=== PATIENT | female | born 1955 | race Caucasian/White ===

== ENCOUNTER → 2019-03-27 14:13 | Outpatient (CLI) | payer MEDICARE, SELFPAY ==
--- NOTE | ~2019-03-27 | XR_ITS ---
EXAMINATION: XR foot LT min 3V DATE: 03/27/2019 14:25 INDICATION: Left foot pain. TECHNIQUE: 4 views of left foot were obtained. COMPARISON: None. FINDINGS: There is mild hallux valgus. No fracture. There is mild osteoarthritis of first metatarsoph alangeal joint, talonavicular joint, and second proximal interphalangeal joint. IMPRESSION: 1. Mild polyarticular osteoarthritis. 2. Mild hallux valgus. Reviewed, dictated and finalized at location A. 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
== END ==
PROVIDERS: PCP Nurse Practitioner; Visit Provider Nurse Practitioner
DX: M19.072 Primary osteoarthritis, left ankle and foot (principal); M20.12 Hallux valgus (acquired), left foot
CPT/HCPCS: 73630

== ENCOUNTER 2020-09-09 14:32 | Outpatient (CLI) | payer MEDICARE, SELFPAY ==
--- NOTE | ~2020-09-09 | XR_ITS ---
XR shoulder RT min 2V DATE: 09/09/2020 15:13 INDICATION: Right shoulder pain TECHNIQUE: 4 views COMPARISON: None FINDINGS: There is diffuse osteopenia. No fracture or dislocation, periosteal reaction or bone destruction. No abnormal soft tissue calcific ation of the right shoulder. Plates and screws overlying the distal humeral shaft. IMPRESSION: Osteopenia Reviewed, dictated and finalized at location A. IMPRESSION: Osteopenia
--- NOTE | ~2020-09-09 | XR_ITS ---
XR knee LT min 4V DATE: 09/09/2020 15:13 INDICATION: Twisted left knee. Left knee pain. TECHNIQUE: 4 views including sunrise COMPARISON: None FINDINGS: Diffuse osteopenia. No fracture or dislocation or joint effusion. No periosteal reaction or bone destruction. No radiopaq ue intra-articular loose body is evident. There is relative preservation of joint spaces. Very subtle chondrocalcinosis is suggested. IMPRESSION: Osteopenia Very subtle chondrocalcinosis is suggested Reviewed, dictated and finalized at location A.
== END 2020-09-09 14:33 | disposition home or self-care (01) ==
LOC: ANHIMG 14:37
PROVIDERS: PCP Family Medicine; Visit Provider Anesthesiology
DX: M17.12 Unilateral primary osteoarthritis, left knee (principal); M19.011 Primary osteoarthritis, right shoulder
CPT/HCPCS: 73030; 73564

== ENCOUNTER 2020-10-21 00:29 | Day surgery (SDC) | payer MEDICARE, SELFPAY ==
[2020-10-08 13:56] VITALS: BMI 27.3
[2020-10-21 07:32] VITALS: BP 121/89; PULSE 102; RESP 18; TEMP 36.4; O2SAT 95; BMI 26.9
[2020-10-21] MEDS: LACTATED RINGERS 1,000 ML 150 ML IV CONT (08:00)
--- NOTE | 2020-10-21 08:19 | WPDANESEPPF ---
Anes - Initial Pre Proc Eval Procedure: Operation Date: 10/21/20 08:30 Proposed Procedures p Screening Colonoscopy - Félix Bird MD Date/Time: 10/21/20 08:19 Surgeon: Félix Bird MD Pre Op Diagnosis: neoplasm screening Patient Data Age: 65 Gender: F Height: 1.52 m Weight: 62.6 kg Last Vital Signs Temp 97.6 F 10/21/20 07:32 Pulse 102 H 10/21/20 07:32 Resp 18 10/21/20 07:32 BP 121/89 10/21/20 07:32 Pulse Ox 95 10/21/20 07:32 Allergies Allergy/AdvReac Type Severity Reaction Status Date / Time morphine Allergy Unknown itchy Verified 10/21/20 07:46 Home Medications Medication Instructions Recorded Confirmed Type hydrocodone 10 mg-acetaminophen 1 tablet PO .COMPLEX PRN tablet 03/27/19 10/21/20 History 325 mg tablet benzonatate 200 mg capsule 200 mg PO TID PRN #30 cap 03/17/20 10/21/20 Rx trazodone 100 mg tablet See Rx Instructions .ROUTE 04/10/20 10/21/20 Rx .COMPLEX #180 tablet amlodipine 10 mg tablet See Rx Instructions .ROUTE 04/14/20 10/21/20 Rx .COMPLEX #30 tablet omeprazole 20 mg capsule,delayed 20 mg PO BID #180 cap 06/08/20 10/21/20 Rx release tizanidine 4 mg tablet See Rx Instructions .ROUTE 08/31/20 10/21/20 Rx .COMPLEX #270 tablet fluoxetine 40 mg capsule 80 mg PO DAILY #180 cap 09/04/20 10/21/20 Rx cholecalciferol (vitamin D3) 50 See Rx Instructions .ROUTE 09/21/20 10/21/20 Rx mcg (2,000 unit) capsule .COMPLEX #90 cap losartan 25 mg tablet 25 mg PO DAILY #90 tablet 10/06/20 10/21/20 Rx fluticasone propionate [Flonase 1 spray NASAL BID PRN 10/08/20 10/21/20 History Allergy Relief] Patient hx anesthesia problems: none Family hx anesthesia problems: none PMFSH Past Medical History Medical History (Updated 09/14/20 @ 07:16 by Lacie Allen NP) Depression Essential hypertension GERD without esophagitis Hypertension Insomnia Other intervertebral disc degeneration, lumbosacral region Surgical History Surgical History History of lumbar spinal fusion 1999, 2000, 2000, 2002, 2004 follows with pain management Family History Family History Mother Diabetes mellitus Family history of malignant neoplasm of bone Social History Social History Years smoked: 15 Smoking status: Former smoker Tobacco type: cigarettes Second hand tobacco smoke exposure: No Smoking end date: 02/20/87 Alcohol intake: former Substance use: never Substance use type: does not use Living arrangements: with family Additional living arrangements comments: lives w/ Uncle Additional occupation/education comments: Disabled d/t back injury Gender identity (if verbalized by the patient): Female Spiritual care concerns: No Anes - Eval Final PreProcedure Day of Procedure 10/21/20 08:19 Patient weight: overweight Heart: regular rate and rhythm Lungs: clear to auscultation Airway: Mallampati scale class II Neurological: alert and oriented Last oral intake: >/= 8 hours ASA classification: III Emergent: no Anesthetic plan: proceed Anesthesia type and monitoring: general GIVS and standard monitoring Informed Consent: The patient's anesthetic plan and its attendant risks and benefits were discussed with the patient/family/POA. Questions were solicited and answers provided to the satisfaction of the patient/family/POA.
--- NOTE | 2020-10-21 08:50 | PM.HPGS ---
History of Present Illness History of Present Illness Consent: Risks, benefits, and alternatives have been discussed and questions answered. Patient agrees to proceed with procedure. Chief complaint: neoplasm screening Narrative: Kristin Medley is a 65 year old female here for colonoscopy, last one about 15 years ago Review of Systems Constitutional: Constitutional: Denies headache(s) and Denies weakness Eyes: Eyes: Denies blurry vision ENT: Reports Normal hearing present, Denies headache(s) and Denies neck pain Cardiovascular: Cardiovascular: Denies chest pain and Denies dyspnea Respiratory: Respiratory: Denies dyspnea Gastrointestinal: Gastrointestinal: Reports no additional gastrointestinal complaints Genitourinary: Genitourinary: Denies dysuria Musculoskeletal: Musculoskeletal: Denies neck pain Integumentary/Breasts: Skin/Breast: Denies dry skin Neurologic: Reports Normal hearing present, Denies headache(s) and Denies weakness Psychiatric: Psychiatric: Denies anxiety Endocrine: Endocrine: Denies change in body appearance Hematologic/Lymphatic: Hematologic/Lymphatic: Denies easy bleeding Allergic/Immunologic: Allergic/Immunologic: Denies urticaria PMFSH Past Medical History Medical History (Updated 10/21/20 @ 08:50 by Félix Bird MD) Colon cancer screening Depression Essential hypertension GERD without esophagitis Hypertension Insomnia Other intervertebral disc degeneration, lumbosacral region Surgical History Surgical History History of lumbar spinal fusion 1999, 2000, 2000, 2002, 2004 follows with pain management Family History Family History Mother Diabetes mellitus Family history of malignant neoplasm of bone Social History Social History Years smoked: 15 Smoking status: Former smoker Tobacco type: cigarettes Second hand tobacco smoke exposure: No Smoking end date: 02/20/87 Alcohol intake: former Substance use: never Substance use type: does not use Living arrangements: with family Additional living arrangements comments: lives w/ Uncle Additional occupation/education comments: Disabled d/t back injury Gender identity (if verbalized by the patient): Female Spiritual care concerns: No Meds Home Medications and Allergies Home Medications Medication Instructions Recorded Confirmed Type hydrocodone 10 mg-acetaminophen 1 tablet PO .COMPLEX PRN tablet 03/27/19 10/21/20 History 325 mg tablet benzonatate 200 mg capsule 200 mg PO TID PRN #30 cap 03/17/20 10/21/20 Rx trazodone 100 mg tablet See Rx Instructions .ROUTE 04/10/20 10/21/20 Rx .COMPLEX #180 tablet amlodipine 10 mg tablet See Rx Instructions .ROUTE 04/14/20 10/21/20 Rx .COMPLEX #30 tablet omeprazole 20 mg capsule,delayed 20 mg PO BID #180 cap 06/08/20 10/21/20 Rx release tizanidine 4 mg tablet See Rx Instructions .ROUTE 08/31/20 10/21/20 Rx .COMPLEX #270 tablet fluoxetine 40 mg capsule 80 mg PO DAILY #180 cap 09/04/20 10/21/20 Rx cholecalciferol (vitamin D3) 50 See Rx Instructions .ROUTE 09/21/20 10/21/20 Rx mcg (2,000 unit) capsule .COMPLEX #90 cap losartan 25 mg tablet 25 mg PO DAILY #90 tablet 10/06/20 10/21/20 Rx fluticasone propionate [Flonase 1 spray NASAL BID PRN 10/08/20 10/21/20 History Allergy Relief] Allergies Allergy/AdvReac Type Severity Reaction Status Date / Time morphine Allergy Unknown itchy Verified 10/21/20 07:46 Vital Signs Vital Signs - 24 hr 10/21/20 07:32 Temperature 97.6 F Pulse Rate 102 H Respiratory Rate 18 Blood Pressure 121/89 Pulse Oximetry 95 Exam Const: General: comfortable and no acute distress HENMT: General nose exam: Normal nares present Eyes: General: appearance normal, both eyes and all related structures Neck: Neck: no JVD
[2020-10-21 09:07] VITALS: BP 129/71; PULSE 70; RESP 18; O2SAT 97
[2020-10-21 09:17] VITALS: BP 125/56; PULSE 66; RESP 18; O2SAT 98
[2020-10-21 09:27] VITALS: BP 128/58; PULSE 66; RESP 18; O2SAT 98
== END 2020-10-21 10:13 | disposition home or self-care (01) ==
PROVIDERS: PCP Family Medicine; Visit Provider Internal Medicine Gastroenterology
PROC: 0DJD8ZZ Inspection of Lower Intestinal Tract, Via Natural or Artificial Opening Endoscopic (ICD-10-PCS; CPT 45378; principal; 2020-10-21 08:30)
DX: Z12.11 Encounter for screening for malignant neoplasm of colon (principal); D12.5 Benign neoplasm of sigmoid colon; K57.30 Diverticulosis of large intestine without perforation or abscess without bleeding; I10 Essential (primary) hypertension; K21.9 Gastro-esophageal reflux disease without esophagitis; F32.9 Major depressive disorder, single episode, unspecified; M51.37 Other intervertebral disc degeneration, lumbosacral region; Z79.891 Long term (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 of 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; Z98.1 Arthrodesis status; Z87.891 Personal history of nicotine dependence
CPT/HCPCS: 45385; 88305; J2704; J7120

== ENCOUNTER 2021-02-22 10:13 | Outpatient (CLI) | payer MEDICARE, SELFPAY ==
--- NOTE | ~2021-02-22 | DEXA_ITS ---
Bone Density Report Name: MIKE PADGETT Age: 65 Sex: Female Ethnicity: White Date of : 1955 Indication: postmenopausal; prior fracture; hysterectomy; Referring Provider: Lacie Allen Study: Bone densitometry was performed. Exam Date: February 22, 2021 Accession number: [id number] Bone Density: Region BMD T-score Z-score Classification AP Spine (L1-L4) 0.558 -4.4 -2.6 Osteoporosis Femoral Neck (Left) 0.380 -4.2 -2.6 Osteoporosis Total Hip (Left) 0.510 -3.5 -2.2 Osteoporosis Total Hip Bilateral Avg 0.479 -3.8 -2.5 Osteoporosis Femoral Neck (Right) 0.376 -4.3 -2.7 Osteoporosis Total Hip (Right) 0.447 -4.1 -2.7 Osteoporosis World Health Organization criteria for BMD impression classify patients as: Normal (T-score at or above -1.0), Osteopenia (T-score between -1.0 and -2.5), or Osteoporosis (T-score at or below -2.5). 10-year Fracture Risk: FRAX not reported because: Some T-score for Spine Total or Hip Total or Femoral Neck at or below -2.5 Clinical Information Provided by Patient: Has had a low trauma fracture Has used the following medications: Vitamin D, Calcium Has the following medical conditions: Hysterectomy Patient maximum height was 60 Menopause Age: 31 No regular weight bearing exercise Onset of menses at age 12 Number of children 2 Impression: The patient has established osteoporosis, based on the Total Spine T-score and the existence of a prior fracture. The patient has risk factors, including: previous fracture. Discussion: HIGH RISK OF FRACTURE. BONE DENSITY IS UNDESIRABLY LOW AT ONE OR MORE SKELETAL SITES, CONSISTENT WITH POSTMENOPAUSAL OSTEOPOROSIS. This patient's lowest T-score, in a patient who has previously fractured, meets the World Health Organization's (WHO) criteria for severe osteoporosis. In untreated patients, the risk of osteoporotic fracture increases approximately two-fold for each 1.0 SD decrease in T-score. Low bone density is not the only risk factor for fracture; also consider factors such as patient's age, frailty or poor health, risk of falling, risk of injury, previous osteoporotic fracture, family history of osteoporosis, cigarette smoking, low body weight, etc. Not everyone with low bone mineral density has osteoporosis; osteomalacia and other metabolic bone disorders should also be considered. Patients who have osteoporosis should be evaluated for specific diseases and conditions (secondary causes) that may cause or contribute to bone loss. The [place] [employer]ocrinologists (AACE) and National Osteoporosis Foundation (NOF) recommend pharmacologic intervention for all postmenopausal women whose T-score is in this range. The patient should follow a healthful lifestyle (good nutrition with adequate calcium and vitamin D, and appropriate weight-bearing exercise).
== END 2021-02-22 10:14 | disposition home or self-care (01) ==
LOC: ANHIMG 10:13
PROVIDERS: PCP Family Medicine; Visit Provider Nurse Practitioner
DX: Z78.0 Asymptomatic menopausal state (principal); M81.0 Age-related osteoporosis without current pathological fracture
CPT/HCPCS: 77080

== ENCOUNTER 2021-08-01 10:42 | Emergency (ER) | payer MEDICARE, SELFPAY ==
[2021-08-01 10:48] VITALS: BP 136/75; PULSE 85; RESP 14; TEMP 36.8; O2SAT 99
--- NOTE | 2021-08-01 11:02 | ED.URI ---
HPI - URI/Sore Throat General Chief Complaint: Upper Respiratory Infection Stated Complaint: sore throat Time Seen by Provider: 08/01/21 11:03 Source: patient, RN notes reviewed and old records reviewed Mode of arrival: ambulatory Limitations: no limitations History of Present Illness HPI Narrative: 66-year-old female who presents to [facility] with complaints of sore throat, sinus pressure, cough and congestion, with headache and right ear pain for the past 3 days. Patient reports that she has had sinus pressure and headache frontal region feels clogged up and has had cough which is non productive, denies any shortness of breath. Patient voices history of sinus infections in the past. Patient reports that she has had COVID vaccinations and also had COVID in March of 2021. MD elicited complaint: cough, sore throat, rhinorrhea, nasal congestion and other (Right ear pain) Pertinent past history: sinusitis Onset (ago): day(s) (3) Treatments prior to arrival: other (flonase, sudafed and Nyquil) Related Data Home Medications Medication Instructions Recorded Confirmed hydrocodone 10 mg-acetaminophen 1 tablet PO .COMPLEX PRN Pain 03/27/19 08/01/21 325 mg tablet tizanidine 4 mg capsule 4 mg PO TID PRN Insomnia 02/01/21 08/01/21 Allergies Allergy/AdvReac Type Severity Reaction Status Date / Time morphine Allergy Unknown itchy Verified 08/01/21 11:00 Review of Systems Review of Systems: CONSTITUTIONAL: Denies fever, chills, or sweats. EYES: Denies visual changes, redness, or discharge. ENT: Positive for rhinorrhea, congestion, sore throat, right ear otalgia. CARDIOVASCULAR: Denies chest pain, palpitations, or edema. RESPIRATORY: Positive for cough denies dyspnea. GASTROINTESTINAL: Denies abdominal pain, nausea, vomiting, or diarrhea. GENITOURINARY: Denies dysuria or hematuria. SKIN: Denies rash or itching. MUSCULOSKELETAL: Chronic back pain, joint pain, or myalgia. NEUROLOGIC: Positive for frontal headache, no numbness, or weakness. PSYCHIATRIC:Positive for history of anxiety or depression. [facility] Past Medical History Medical History Depression Essential hypertension GERD without esophagitis Hypertension Insomnia Other intervertebral disc degeneration, lumbosacral region Surgical History Surgical History History of lumbar spinal fusion 1999, 2000, 2000, 2002, 2004 follows with pain management Family History Family History Mother Diabetes mellitus Family history of malignant neoplasm of bone Social History Social History Years smoked: 15 Smoking status: Former smoker Tobacco type: cigarettes Second hand tobacco smoke exposure: No Smoking end date: 02/20/87 Alcohol intake: former Substance use: never Substance use type: does not use Additional living arrangements comments: lives w/ Uncle Additional occupation/education comments: Disabled d/t back injury Gender identity (if verbalized by the patient): Female Spiritual care concerns: No Comments At time of signature, agree with nursing past medical, surgical, social and family history. There is no relevant family history pertinent to the presenting complaint Exam Narrative: GENERAL: Well-appearing, well-nourished, and in no acute distress. HEAD: Normocephalic, atraumatic. EYES: PERRLA and EOMI. ENT: Nares red with clear rhinorrhea no epistaxis. Mucous membranes moist.TM's normal with dull light reflex, throat red with no lesions or exudates, no tonsils present, post nasal drainage present, facial sinus pressure reported NECK: Supple.no lymphadenopathy CHEST: Clear to auscultation. No respiratory distress.SAO2 99% on room air, cough with no tachypnea HEART: Regular rate and rhythm. No murmur heard. Normal peripheral pul
== END 2021-08-01 11:20 | disposition home or self-care (01) ==
PROVIDERS: Emergency Provider Registered Nurse; PCP Family Medicine
DX: J32.9 Chronic sinusitis, unspecified (principal); Z87.891 Personal history of nicotine dependence; I10 Essential (primary) hypertension; K21.9 Gastro-esophageal reflux disease without esophagitis; M51.37 Other intervertebral disc degeneration, lumbosacral region; F32.A Depression, unspecified; Z86.16 Personal history of COVID-19
CPT/HCPCS: 99213; G0463

== ENCOUNTER 2022-03-18 11:06 | Outpatient (CLI) | payer MEDICARE, SELFPAY ==
[2022-03-18 19:51] LABS: Basophils Percent Auto 0.6 % (0.2-1.2); Eosinophils Absolute Auto 0.1 K/mm3 (0-0.3); Eosinophils Percent Auto 2.1 % (0-4.4); Hematocrit 33.7 % (37.0-47.0); Hemoglobin 10.1 g/dL (12.0-15.0); Immature Granulocyte Absolute 0.01 K/mm3 (0.00-0.031); Immature Granulocyte Percent A 0.3 % (0-0.5); Lymphocytes Absolute Auto 0.61 K/mm3 (0.9-3.2); Lymphocytes Percent Auto 18.5 % (18.3-44.2); Mean Corpuscular Hemoglobin 24.4 pg (26-34); Mean Corpuscular Volume 81.4 fl (80-100); Mean Platelet Volume 9.3 fl (7.4-10.4); Monocytes Absolute Auto 0.3 K/mm3 (0.1-0.6); Monocytes Percent Auto 8.8 % (2.6-8.5); Neutrophils Absolute Auto 2.3 K/mm3 (1.3-6.7); Neutrophils Percent Auto 69.7 % (45.5-73.1); Platelet Count Result 230 k/mm3 (150-375); Red Blood Count 4.14 M/mm3 (4.2-5.4); Red Cell Distribution Width 14.7 % (11.5-14.5); White Blood Count 3.3 K/mm3 (4.5-10.0)
[2022-03-18 19:54] LABS: Alanine Aminotransferase 20 U/L (6-35); Albumin Level 4.3 g/dL (3.5-5.1); Alkaline Phosphatase 111 U/L (38-126); Anion Gap 7 mmol/L (8-16); Aspartate Amino Transferase 29 U/L (14-36); Bilirubin,Total 0.4 mg/dL (0.2-1.3); Blood Urea Nitrogen 18 mg/dL (7-17); Calcium 8.9 mg/dL (8.4-10.2); Carbon Dioxide 27 mmol/L (22-30); Chloride 104 mmol/L (98-107); Cholesterol 196 mg/dL (0-200); Estimated Glomerular Filt Rate > 60; Glucose 99 mg/dL (65-110); HDL Direct 54 mg/dL; Sodium 138 mmol/L (137-145); Triglycerides 106 mg/dL (<150)
[2022-03-18 20:05] LABS: LDL Cholesterol Direct 83 mg/dL
[2022-03-18 20:18] LABS: Vitamin D 25 Hydroxy 62.3 ng/mL
[2022-03-18 20:31] LABS: Thyroid Stimulating Hormone Reflex 0.772 uIU/mL (0.465-4.68)
[2022-03-21 12:03] LABS: Iron 21 ug/dL (37-170)
[2022-03-21 12:12] LABS: Percent Iron Saturation 6 % (20-50)
== END 2022-03-18 11:07 | disposition home or self-care (01) ==
LOC: ANHGOSHLAB 11:08
PROVIDERS: PCP Family Medicine; Visit Provider Nurse Practitioner
DX: R53.83 Other fatigue (principal); I10 Essential (primary) hypertension; E78.5 Hyperlipidemia, unspecified; E55.9 Vitamin D deficiency, unspecified; D64.9 Anemia, unspecified
CPT/HCPCS: 36415; 80053; 80061; 82306; 82728; 83540; 83550; 84443; 85025

== ENCOUNTER 2022-04-19 17:56 | Emergency (ER) | payer MEDICARE, SELFPAY ==
--- NOTE | ~2022-04-19 | XR_ITS ---
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 RESULT: Lines, tubes, and devices: Partially visualized screw and plate fixation of the distal right humerus . Lungs and pleura: Clear. Cardiomediastinal silhouette: Calcified right hilar nodes. Other: No acute osseous or upper abdominal finding. IMPRESSION: No acute cardiopulmonary process. No acute fracture detected in the right ribs. Reviewed, dictated and finalized at location K. S MARKETING DIRECTOR
[2022-04-19 18:11] VITALS: BP 180/95; PULSE 81; RESP 16; TEMP 36.8; O2SAT 99
--- NOTE | 2022-04-19 18:15 | WC.ED.TRAUMA ---
HPI - Trauma General Chief Complaint: Extremity Injury, Upper Stated Complaint: rt side rib pain Source: patient Mode of arrival: ambulatory Limitations: no limitations History of Present Illness HPI narrative: 66-year-old female with a history of osteoporosis presented for complaint of right rib pain after injury 2 days ago. Endorses reaching over her washer to get out the laundry, when she slipped, and struck the ribs on the side of the washer. She endorses pain is 9/10, constant, causing difficulty sleep. She has been taking hydrocodone from previous back surgeries without significant relief. She also has applied kinesiology tape to the right ribs. Denies sob, wheezing, cp, palpitations. Related Data Home Medications Medication Instructions Recorded Confirmed hydrocodone 10 mg-acetaminophen 1 tablet PO .COMPLEX PRN Pain 03/27/19 03/18/22 325 mg tablet tizanidine 4 mg capsule 4 mg PO TID PRN Insomnia 02/01/21 03/18/22 Allergies Allergy/AdvReac Type Severity Reaction Status Date / Time morphine Allergy Unknown itchy Verified 03/18/22 10:25 Review of Systems Review of Systems: CONSTITUTIONAL: Denies body aches, fever, chills, or sweats. CARDIOVASCULAR: Denies chest pain, palpitations, or edema. RESPIRATORY: Denies cough or dyspnea. SKIN: Denies rash, bruising, or wounds. MUSCULOSKELETAL: per HPI NEUROLOGIC: Denies headache, numbness, tingling, or weakness. All systems reviewed & are unremarkable except as noted in HPI and below PMFSH Past Medical History Medical History Age related osteoporosis Depression Essential hypertension GERD without esophagitis Hypertension Insomnia Other intervertebral disc degeneration, lumbosacral region Surgical History Surgical History History of lumbar spinal fusion 1999, 2000, 2000, 2002, 2004 follows with pain management Family History Family History Mother Diabetes mellitus Family history of malignant neoplasm of bone Social History Social History Years smoked: 15 Smoking status: Former smoker Tobacco type: cigarettes Second hand tobacco smoke exposure: No Smoking end date: 02/20/87 Alcohol intake: former Substance use: never Substance use type: does not use Lack of Transportation: No Lack of Food: Never True Current Housing: I Have Housing Concerned About Future Housing: No Difficulty Paying Gas/Electric Bills: No Difficulty Paying for Meds: No Currently Unemployed: No Education: High School Diploma/GED Difficulty w/ Childcare or Family Care: No Living arrangements: with family Additional living arrangements comments: lives w/ Uncle Occupation/Education: other Additional occupation/education comments: Disabled d/t back injury Gender identity (if verbalized by the patient): Female Spiritual care concerns: No Comments At time of signature, I have reviewed and agree with nursing past medical, surgical, social and family history unless otherwise noted. Please see nursing chart for further information. There is no relevant family history pertinent to the presenting complaint Exam Narrative: GENERAL: appears in pain; in no acute distress. NECK: Normal AROM. Supple. CHEST: No respiratory distress. Clear to auscultation. HEART: Regular rate and rhythm. No murmur appreciated. Normal peripheral pulses. ABDOMEN: Soft, nontender, nondistended, normal active bowel sounds. MUSCULOSKELETAL: right anterior rib tenderness with palpation approx 5-7. Tape in place across anterior, lateral and posterior aspects. No apparent bruising or deformity. EXTREMITIES: Normal range of motion. No edema. SKIN: Warm, dry, no rash. Capillary refill normal. Normal skin turgor. NEURO: No focal deficits. Alert an
== END 2022-04-19 18:34 | disposition home or self-care (01) ==
PROVIDERS: Emergency Provider Nurse Practitioner Family; PCP Nurse Practitioner
DX: S20.211A Contusion of right front wall of thorax, initial encounter (principal); I10 Essential (primary) hypertension; Z87.891 Personal history of nicotine dependence; W01.198A Fall on same level from slipping, tripping and stumbling with subsequent striking against other object, initial encounter
CPT/HCPCS: 71101; 99213; G0463

== ENCOUNTER 2023-08-23 02:14 | Day surgery (SDC) | payer MEDICARE, SELFPAY ==
[2023-08-11 08:48] VITALS: BMI 23.4
[2023-08-23 09:38] VITALS: BP 153/99; PULSE 100; RESP 16; TEMP 36.2; O2SAT 98
--- NOTE | 2023-08-23 09:45 | WPDHPUPDATE1 ---
History and Physical Update Update Date/Time: 08/23/23 09:45 History and Physical has been reviewed, including an updated exam of the patient. There are NO changes in the patient's condition. Risks, benefits, and alternatives have been discussed and questions answered. Patient agrees to proceed with procedure.
[2023-08-23] MEDS: LACTATED RINGERS 1,000 ML 150 ML IV CONT (09:50)
[2023-08-23 10:51] VITALS: BP 138/75; PULSE 68; RESP 17; O2SAT 99
[2023-08-23 11:01] VITALS: BP 139/77; PULSE 66; RESP 15; O2SAT 100
[2023-08-23 11:11] VITALS: BP 139/83; PULSE 67; RESP 20; O2SAT 100
== END 2023-08-23 11:22 | disposition home or self-care (01) ==
PROVIDERS: PCP Family Medicine; Referring Provider Nurse Practitioner Family; Visit Provider Internal Medicine Gastroenterology
PROC: 0DJ08ZZ Inspection of Upper Intestinal Tract, Via Natural or Artificial Opening Endoscopic (ICD-10-PCS; CPT 43235; principal; 2023-08-23 11:00)
DX: K29.80 Duodenitis without bleeding (principal); K29.50 Unspecified chronic gastritis without bleeding; K31.5 Obstruction of duodenum; D50.9 Iron deficiency anemia, unspecified; K57.30 Diverticulosis of large intestine without perforation or abscess without bleeding; Z86.010 Personal history of colon polyps; I10 Essential (primary) hypertension; K21.9 Gastro-esophageal reflux disease without esophagitis; F32.A Depression, unspecified; F98.8 Other specified behavioral and emotional disorders with onset usually occurring in childhood and adolescence; Z87.891 Personal history of nicotine dependence
CPT/HCPCS: 45378; 43239; 43245; 88305; C1726; J2704; J7120

== ENCOUNTER 2024-01-03 00:12 | Day surgery (SDC) | payer MEDICARE, SELFPAY ==
[2023-12-21 14:38] VITALS: BMI 22.4
[2024-01-03 08:24] VITALS: BP 181/89; PULSE 50; RESP 18; TEMP 36.2; O2SAT 96; BMI 22.5
[2024-01-03] MEDS: LACTATED RINGERS 1,000 ML 150 ML IV CONT (08:36)
--- NOTE | 2024-01-03 09:45 | PM.HPGS ---
History of Present Illness History of Present Illness Consent: Risks, benefits, and alternatives have been discussed and questions answered. Patient agrees to proceed with procedure. Chief complaint: Gastritis, obstruction of duodenum Narrative: Kristin Medley is a 68 year old female with n/v, last EGD few months ago benign duodenal stricture, also gastritis, no h pylori. On ppi. Here to reassess Review of Systems Review of Systems: All systems reviewed & are unremarkable except as noted in HPI and below PMFSH Past Medical History Medical History (Updated 01/03/24 @ 09:46 by Félix Bird MD) Age related osteoporosis Depression Essential hypertension GERD without esophagitis Hypertension Insomnia Other intervertebral disc degeneration, lumbosacral region Stricture esophagus Stricture of duodenum Surgical History Surgical History History of lumbar spinal fusion 1999, 2000, 2000, 2002, 2004 follows with pain management Family History Family History Mother Diabetes mellitus Family history of malignant neoplasm of bone Social History Social History Years smoked: 15 Smoking status: Never smoker Tobacco type: cigarettes Second hand tobacco smoke exposure: No Smoking end date: 02/20/87 Alcohol intake: never Substance use: never Substance use type: does not use Lack of Transportation: No Lack of Food: Never True Current Housing: I Have Housing Concerned About Future Housing: No Difficulty Paying Gas/Electric Bills: No Difficulty Paying for Meds: No Currently Unemployed: No Education: High School Diploma/GED Difficulty w/ Childcare or Family Care: No Living arrangements: with family Additional living arrangements comments: lives w/ Uncle Occupation/Education: other Additional occupation/education comments: Disabled d/t back injury Gender identity (if verbalized by the patient): Female Spiritual care concerns: No Meds Home Medications and Allergies Home Medications Medication Instructions Recorded Confirmed Type hydrocodone 10 mg-acetaminophen 1 tablet PO .COMPLEX PRN Pain 03/27/19 01/03/24 History 325 mg tablet fluticasone propionate 50 1 spray intranasal BID PRN Allergy 11/09/20 01/03/24 Rx mcg/actuation nasal Symptoms #16 grams spray,suspension (Flonase Allergy Relief) tizanidine 4 mg capsule 4 mg PO TID PRN Insomnia 02/01/21 01/03/24 History alendronate 70 mg tablet (Fosamax) 70 mg PO WEEKLY #12 tabs 07/20/21 01/03/24 Rx amlodipine 10 mg tablet 10 mg PO DAILY #90 tabs 06/05/23 01/03/24 Rx fluoxetine 40 mg capsule 80 mg PO DAILY #180 caps 08/15/23 01/03/24 Rx omeprazole 20 mg capsule,delayed 20 mg PO BID 3 months #180 caps 08/23/23 01/03/24 Rx release metoprolol succinate 25 mg 25 mg PO DAILY #90 tabs 10/25/23 01/03/24 Rx tablet,extended release 24 hr dextroamphetamine-amphetamine 20 20 mg PO DAILY #30 tabs 11/30/23 01/03/24 Rx mg tablet (Adderall) trazodone 100 mg tablet 300 mg PO QHS #270 tabs 11/30/23 01/03/24 Rx ferrous sulfate 325 mg (65 mg 325 mg PO BID #180 tabs 12/04/23 01/03/24 Rx iron) tablet,delayed release cholecalciferol (vitamin D3) 50 2,000 unit PO DAILY #90 caps 12/18/23 01/03/24 Rx mcg (2,000 unit) capsule Allergies Allergy/AdvReac Type Severity Reaction Status Date / Time morphine Allergy Unknown itchy Verified 01/03/24 08:21 Vital Signs Vital Signs - 24 hr 01/03/24 08:24 Temperature 97.2 F L Pulse Rate 50 L Respiratory Rate 18 Blood Pressure 181/89 H Pulse Oximetry 96 Oxygen Delivery Room Air Exam Const: General: comfortable and no acute distress HENMT: Face/Nose/Sinus: Normal nares present Eyes: General: appearance normal, both eyes and all related structures Neck: Neck: no JVD Resp: Auscultation: clear to auscultation bilaterally Cardio: Rate: regular rate Rhythm: regular rhythm GI: Inspection: non-distended GI Palp: Yes Soft to palpation Skin: General skin exam: normal color Neuro: General: gait normal Speech: normal speech Extrem: General: normal to inspection Psych: Mental Status: mental status grossly normal Assessment and Plan Assessment and plan (1) Nausea and vomiting: Qualifiers: Vomiting type: bilious vomiting Qualified Code(s): R11.14 - Bilious vomiting Code(s): R11.2 - Nausea with vomiting, unspecified Status: Acute (2) Stricture of duodenum: Code(s): K31.5 - Obstruction of duodenum Status: Acute Assessment and Plan: egd, will assess if needs more dilatation
--- NOTE | 2024-01-03 09:49 | P.PNAN_ITS ---
Anes - Initial Pre Proc Eval Procedure: Operation Date: 01/03/24 09:30 Proposed Procedures p Esophagogastroduodenoscopy - Félix Bird MD Date/Time: 01/03/24 09:49 Surgeon: Félix Bird MD Pre Op Diagnosis: Gastritis, obstruction of duodenum Patient Data Age: 68 Gender: F Height: 1.52 m Weight: 52.3 kg Last Vital Signs Temp 36.2 C L 01/03/24 08:24 Pulse 50 L 01/03/24 08:24 Resp 18 01/03/24 08:24 BP 181/89 H 01/03/24 08:24 Pulse Ox 96 01/03/24 08:24 O2 Del Method Room Air 01/03/24 08:24 Allergies Allergy/AdvReac Type Severity Reaction Status Date / Time morphine Allergy Unknown itchy Verified 01/03/24 08:21 Home Medications Medication Instructions Recorded Confirmed Type hydrocodone 10 mg-acetaminophen 1 tablet PO .COMPLEX PRN Pain 03/27/19 01/03/24 History 325 mg tablet fluticasone propionate 50 1 spray intranasal BID PRN Allergy 11/09/20 01/03/24 Rx mcg/actuation nasal Symptoms #16 grams spray,suspension (Flonase Allergy Relief) tizanidine 4 mg capsule 4 mg PO TID PRN Insomnia 02/01/21 01/03/24 History alendronate 70 mg tablet (Fosamax) 70 mg PO WEEKLY #12 tabs 07/20/21 01/03/24 Rx amlodipine 10 mg tablet 10 mg PO DAILY #90 tabs 06/05/23 01/03/24 Rx fluoxetine 40 mg capsule 80 mg PO DAILY #180 caps 08/15/23 01/03/24 Rx omeprazole 20 mg capsule,delayed 20 mg PO BID 3 months #180 caps 08/23/23 01/03/24 Rx release metoprolol succinate 25 mg 25 mg PO DAILY #90 tabs 10/25/23 01/03/24 Rx tablet,extended release 24 hr dextroamphetamine-amphetamine 20 20 mg PO DAILY #30 tabs 11/30/23 01/03/24 Rx mg tablet (Adderall) trazodone 100 mg tablet 300 mg PO QHS #270 tabs 11/30/23 01/03/24 Rx ferrous sulfate 325 mg (65 mg 325 mg PO BID #180 tabs 12/04/23 01/03/24 Rx iron) tablet,delayed release cholecalciferol (vitamin D3) 50 2,000 unit PO DAILY #90 caps 12/18/23 01/03/24 Rx mcg (2,000 unit) capsule Patient hx anesthesia problems: none Family hx anesthesia problems: none Results Review: All pre-operative results and documents have been reviewed as part of the pre- operative evaluation. [facility] Past Medical History Medical History Age related osteoporosis Depression Essential hypertension GERD without esophagitis Hypertension Insomnia Other intervertebral disc degeneration, lumbosacral region Stricture esophagus Stricture of duodenum Surgical History Surgical History History of lumbar spinal fusion 1999, 2000, 2000, 2002, 2004 follows with pain management Family History Family History Mother Diabetes mellitus Family history of malignant neoplasm of bone Social History Social History Years smoked: 15 Smoking status: Never smoker Tobacco type: cigarettes Second hand tobacco smoke exposure: No Smoking end date: 02/20/87 Alcohol intake: never Substance use: never Substance use type: does not use Lack of Transportation: No Lack of Food: Never True Current Housing: I Have Housing Concerned About Future Housing: No Difficulty Paying Gas/Electric Bills: No Difficulty Paying for Meds: No Currently Unemployed: No Education: High School Diploma/GED Difficulty w/ Childcare or Family Care: No Living arrangements: with family Additional living arrangements comments: lives w/ Uncle Occupation/Education: other Additional occupation/education comments: Disabled d/t back injury Gender identity (if verbalized by the patient): Female Spiritual care concerns: No Anes - Eval Final PreProcedure Day of Procedure 01/03/24 09:49 Patient weight: normal Heart: regular rate and rhythm Lungs: clear to auscultation Airway: Mallampati scale class 1 Neurological: alert and oriented Last oral intake: >/= 8 hours ASA classification: II Emergent: no Anesthetic plan: proceed Anesthesia type and monitoring: general GIVS Results Review: All pre-operative results and documents have been reviewed as part of the pre- operative evaluation. Informed Consent: The patient's anesthetic plan and its attendant risks and benefits were discussed with the patient/family/POA. Questions were solicited and answers provided to the satisfaction of the patient/family/POA.
[2024-01-03 10:04] VITALS: BP 197/96; PULSE 97; RESP 25; O2SAT 94
[2024-01-03 10:14] VITALS: BP 168/88; PULSE 89; RESP 16; O2SAT 99
[2024-01-03 10:24] VITALS: BP 179/88; PULSE 83; RESP 16; O2SAT 99
== END 2024-01-03 10:32 | disposition home or self-care (01) ==
PROVIDERS: PCP Family Medicine; Visit Provider Internal Medicine Gastroenterology
PROC: 0DJ08ZZ Inspection of Upper Intestinal Tract, Via Natural or Artificial Opening Endoscopic (ICD-10-PCS; CPT 43235; principal; 2024-01-03 09:30)
DX: K31.1 Adult hypertrophic pyloric stenosis (principal); K29.70 Gastritis, unspecified, without bleeding; K21.9 Gastro-esophageal reflux disease without esophagitis; I10 Essential (primary) hypertension; M81.0 Age-related osteoporosis without current pathological fracture; F32.A Depression, unspecified; Z98.1 Arthrodesis status; Z87.891 Personal history of nicotine dependence
CPT/HCPCS: 43245; C1726; J2704; J7120

== ENCOUNTER 2024-01-29 10:59 | Emergency (ER) | payer MEDICARE, SELFPAY ==
--- NOTE | 2024-01-29 11:02 | ED.URI ---
HPI - URI/Sore Throat General Chief Complaint: Upper Respiratory Infection Stated Complaint: Flu Symptoms Time Seen by Provider: 01/29/24 11:01 Source: patient Mode of arrival: ambulatory Limitations: no limitations History of Present Illness HPI Narrative: Kristin is a 68-year-old female patient presenting to the clinic today with complaints flu-like symptoms. She reports Related Data Home Medications Medication Instructions Recorded Confirmed hydrocodone 10 mg-acetaminophen 1 tablet PO .COMPLEX PRN Pain 03/27/19 01/29/24 325 mg tablet tizanidine 4 mg capsule 4 mg PO TID PRN Insomnia 02/01/21 01/29/24 Allergies Allergy/AdvReac Type Severity Reaction Status Date / Time morphine Allergy Unknown itchy Verified 01/29/24 11:07 Review of Systems Review of Systems: Pertinent positives per HPI. Patient denies any fever, chills, rash, headache, visual changes, dizziness, sore throat, chest pain, palpitations, constipation, abdominal pain, or any urinary issues. PMFSH Past Medical History Medical History Age related osteoporosis Depression Essential hypertension GERD without esophagitis Hypertension Insomnia Other intervertebral disc degeneration, lumbosacral region Stricture esophagus Stricture of duodenum Surgical History Surgical History History of lumbar spinal fusion 1999, 2000, 2000, 2002, 2004 follows with pain management Family History Family History Mother Diabetes mellitus Family history of malignant neoplasm of bone Social History Social History Years smoked: 15 Smoking status: Never smoker Tobacco type: cigarettes Second hand tobacco smoke exposure: No Smoking end date: 02/20/87 Alcohol intake: never Substance use: never Substance use type: does not use Lack of Transportation: No Lack of Food: Never True Current Housing: I Have Housing Concerned About Future Housing: No Difficulty Paying Gas/Electric Bills: No Difficulty Paying for Meds: No Currently Unemployed: No Education: High School Diploma/GED Difficulty w/ Childcare or Family Care: No Living arrangements: with family Additional living arrangements comments: lives w/ Uncle Occupation/Education: other Additional occupation/education comments: Disabled d/t back injury Gender identity (if verbalized by the patient): Female Spiritual care concerns: No Comments At the time of my signature, I reviewed and agree with the nursing past medical, surgical, social, and family history. There is no relevant family history pertinent to the patient complaint. Exam Narrative: General: Well-developed, well nourished, pale, acute ill-appearing Head: Normocephalic, atraumatic Eyes: Pupils equally round and reactive to light bilaterally, EOM intact, sclera and conjunctive clear, no discharge, lids normal Ears: TMs intact and clear, ear canals clear, no drainage, grossly hearing normal. Nose: Nares patent, no discharge, no inflammation, no sinus tenderness. Mouth: Oropharynx without lesions or masses, good dentition, MMM. Neck: Supple, trachea midline, no enlargement of anterior or posterior cervical nodes, no thyroid masses or goiter palpable. Cardio: Regular rate and rhythm, s1 and s2 normal, no murmur appreciated. Resp: Lung sounds slightly coarse and congested, no rhonchi, rales, wheezing or rubs Abdomen: Soft, pliable, bowel sounds present in all quadrants, generalized tender to palpation, no organomegly, no CVAT tenderness. Course Course Emergency Course: Portions of this record may have been created with voice recognition software. Level of Care: Express Care Visit Vital Signs Vital signs: Vital signs reviewed MDM - URI/Sore Throat MDM Narrative Medical decision making narrative: At the time of visit patient is resting comfortably on the exam table. Patient appears to be nontoxic. Labs: COVID and influenza testing was performed. Testing was negative Plan: Patient is pale, complained weakness, with nausea, vomiting, and diarrhea x2 weeks. Recommend transfer to the ER for further evaluation as she is also reporting some shortness of breath and muscle aches. Patient would like to go to [facility] Contacted Dr. Blanco and report was given for continuity of care and he accepts patient Differential Diagnosis Differential diagnosis: Likely upper respiratory infection, croup, otitis media, sinusitis, viral infection, bronchitis, influenza, pharyngitis and other (Pneumonia, nausea, vomiting, and diarrhea) Discharge Plan Discharge Clinical Impression: Acute dehydration, Weakness, Nausea vomiting and diarrhea, Shortness of breath Patient Disposition: Acute Care Hospital Condition: Stable Instructions: Antibiotic Form Prescriptions: No Action hydrocodone-acetaminophen 10-325 mg tablet 1 tablet PO .COMPLEX PRN (Reason: Pain) Rx Instructions: 1 tablet PO four times a day PRN; tizanidine 4 mg capsule 4 mg PO TID PRN (Reason: Insomnia) omeprazole 20 mg capsule,delayed release(DR/EC) 20 mg PO BID 90 Days Qty: 180 2RF fluticasone propionate [Flonase Allergy Relief] 50 mcg/actuation spray,suspension 1 spray NASAL BID PRN (Reason: Allergy Symptoms) Qty: 16 1RF Rx Instructions: administer into each nostril alendronate [Fosamax] 70 mg tablet 70 mg PO WEEKLY Qty: 12 1RF Rx Instructions: Wed. amlodipine 10 mg tablet 10 mg PO DAILY Qty: 90 0RF fluoxetine 40 mg capsule 80 mg PO DAILY Qty: 180 1RF trazodone 100 mg tablet 300 mg PO QHS Qty: 270 1RF ferrous sulfate 325 mg (65 mg iron) tablet,delayed release (DR/EC) 325 mg PO BID Qty: 180 1RF cholecalciferol (vitamin D3) 50 mcg (2,000 unit) capsule 2,000 unit PO DAILY Qty: 90 1RF dextroamphetamine-amphetamine [Adderall] 20 mg tablet 20 mg PO DAILY Qty: 30 0RF metoprolol succinate 25 mg tablet extended release 24 hr 25 mg PO DAILY Qty: 90 0RF Follow-up/Referrals: PHYSICIAN,COMMERCIAL BAKING TEACHER [Primary Care Provider] - Time of Disposition: 11:20 Quality NIHSS Nursing Documentation ED NIHSS nursing documentation: reviewed/agree
[2024-01-29 11:11] VITALS: BP 139/101; PULSE 83; RESP 16; TEMP 36.8; O2SAT 100
[2024-01-29 11:53] LABS: EDCOVIDSCREEN Negative (Negative); EDINFLUASCREEN Negative (Negative); EDINFLUBSCREEN Negative (Negative)
== END 2024-01-29 11:25 | disposition short-term general hospital (02) ==
PROVIDERS: Emergency Provider Nurse Practitioner Family
DX: E86.0 Dehydration (principal); R53.1 Weakness; R11.2 Nausea with vomiting, unspecified; R19.7 Diarrhea, unspecified; R06.02 Shortness of breath; Z20.822 Contact with and (suspected) exposure to COVID-19; Z87.891 Personal history of nicotine dependence; I10 Essential (primary) hypertension; K21.9 Gastro-esophageal reflux disease without esophagitis; M81.0 Age-related osteoporosis without current pathological fracture
CPT/HCPCS: 87426; 87804; 99213; G0463

== ENCOUNTER 2024-01-29 11:39 | Observation (INO) | payer MEDICARE, MEDICAID, SELFPAY ==
[2024-01-29] VITALS (23 sets, daily range): BP systolic 133–217; BP diastolic 78–118; PULSE 85–102; RESP 16–22; TEMP 36.3–37.2; O2SAT 95–99; BMI 22.8
--- NOTE | ~2024-01-29 | XR_ITS ---
EXAMINATION: XR chest 2V DATE: 01/29/2024 12:35 INDICATION: Chest pain and shortness of breath TECHNIQUE: PA and lateral views of the chest were obtained. COMPARISON: Right rib radiographs dated 04/19/2022 FINDINGS: Subtle airspace opacities in the superior segment of the left lower lobe projected over the perihilar region on the frontal projection. Small bilateral pleural effusions. No pneumothorax. Heart size is normal. Mild lower thoracic dextrocurvature with mild spondylosis. A few old right-sided rib fracture s. IMPRESSION: 1. New mild opacities in the superior segment of the left lower lobe suspicious for pneumonia. 2. Small bilateral pleural effusions. Reviewed, dictated and finalized at location A. [employer]
--- NOTE | 2024-01-29 11:45 | ECG_ITS ---
Test Date: 2024-01-29 11:47:55 Measurements Intervals [place] Rate: 84 P: 71 IA: 125 QRS: 50 QRSD: 81 T: 68 QT: 400 QTc: 474 Interpretive Statements SINUS RHYTHM MODERATE VOLTAGE CRITERIA FOR LVH No previous ECG available for comparison Electronically Signed On 01-29-2024 12:58:59 FOOD SERVICE SUPERVISOR by Elmer Hill M.D.
[2024-01-29 11:57] LABS: Basophils Percent Auto 0.3 % (0.2-1.2); Eosinophils Percent Auto 0.9 % (0-4.4); Hematocrit 23.7 % (37.0-47.0); Immature Granulocyte Absolute 0.11 K/mm3 (0.00-0.031); Immature Granulocyte Percent A 3.3 % (0-0.5); Lymphocytes Absolute Auto 0.55 K/mm3 (0.9-3.2); Lymphocytes Percent Auto 16.7 % (18.3-44.2); Mean Corpuscular HGB Conc 29.1 g/dl (32-36); Mean Corpuscular Hemoglobin 22.9 pg (26-34); Mean Corpuscular Volume 78.7 fl (80-100); Mean Platelet Volume 8.1 fl (7.4-10.4); Monocytes Absolute Auto 0.3 K/mm3 (0.1-0.6); Monocytes Percent Auto 10.3 % (2.6-8.5); Neutrophils Absolute Auto 2.3 K/mm3 (1.3-6.7); Neutrophils Percent Auto 68.5 % (45.5-73.1); Platelet Count Result 304 k/mm3 (150-375); Red Blood Count 3.01 M/mm3 (4.2-5.4); Red Cell Distribution Width 15.5 % (11.5-14.5); White Blood Count 3.3 K/mm3 (4.5-10.0)
[2024-01-29 12:07] LABS: Alanine Aminotransferase 16 U/L (6-35); Albumin Level 2.9 g/dL (3.5-5.1); Alkaline Phosphatase 104 U/L (38-126); Anion Gap 6 mmol/L (4-12); Aspartate Amino Transferase 32 U/L (14-36); Bilirubin,Total 0.3 mg/dL (0.2-1.3); Blood Urea Nitrogen 32 mg/dL (7-17); Calcium 9.3 mg/dL (8.4-10.2); Carbon Dioxide 23 mmol/L (22-30); Chloride 110 mmol/L (98-107); Estimated CRCL calculation 22 ml/min; Estimated Glomerular Filt Rate 32; Glucose 121 mg/dL (65-110); Lipase 162 U/L (23-300); Potassium 4.9 mmol/L (3.4-5.0); Sodium 139 mmol/L (137-145)
[2024-01-29 12:21] LABS: Hemoglobin 6.9 g/dL (12.0-15.0); Troponin I 0.051 ng/mL (0.000-0.034)
[2024-01-29 12:23] LABS: Prothrombin Time 13.7 Seconds (11.1-14.7)
[2024-01-29 12:24] LABS: Partial Thromboplastin Time 23.4 Seconds (22.3-36.8)
[2024-01-29 12:32] LABS: Hypochromasia 1+; Platelet Estimate Adequate (Adequate)
[2024-01-29 12:33] LABS: Microcytosis 1+ (NORMAL); Schistocytes None Seen
[2024-01-29 13:39] LABS: Iron 19 ug/dL (37-170)
[2024-01-29 13:48] LABS: Percent Iron Saturation 9 % (20-50)
[2024-01-29 13:53] LABS: Immature Reticulocyte Fraction 29.1 % (3.0-15.9); Reticulocyte Hemoglobin Conten 19.7 pg (28.2-36.6); Reticulocytes Absolute 0.08 10^6/uL (0.02-0.10)
--- NOTE | 2024-01-29 14:08 | ED_ITS ---
HPI - General Adult General Chief complaint: Nausea/Vomiting/Diarrhea Stated complaint: n/v/d x2 weeks Time Seen by Provider: 01/29/24 12:28 History of Present Illness HPI narrative: Patient is a 68-year-old female who presents ER with multiple complaints. First complaint is shortness of breath. Before [place] she had sinus congestion and she says it has now settled in her chest. Associated with cough. She can only walk 6 ft before she has to sit down and rest. She has also been having some nausea vomiting as well as some diarrhea. No blood in her stool. No fevers or chills or sweats. No loss of consciousness. She has no chest pain. Related Data Home Medications Medication Instructions Recorded Confirmed hydrocodone 10 mg-acetaminophen 1 tablet PO .COMPLEX PRN Pain 03/27/19 01/29/24 325 mg tablet tizanidine 4 mg capsule 4 mg PO TID PRN Insomnia 02/01/21 01/29/24 Allergies Allergy/AdvReac Type Severity Reaction Status Date / Time morphine Allergy Unknown itchy Verified 01/29/24 11:07 Review of Systems Review of Systems: All systems reviewed & are unremarkable except as noted in HPI and below Constitutional: Constitutional: Reports no additional constitutional complaints ENT: Reports system reviewed and no additional complaints, except as documented Cardiovascular: Cardiovascular: Reports no additional cardiovascular complaints Respiratory: Respiratory: Reports no additional respiratory complaints Gastrointestinal: Gastrointestinal: Reports no additional gastrointestinal complaints PMFSH Past Medical History Medical History Age related osteoporosis Depression Essential hypertension GERD without esophagitis Hypertension Insomnia Other intervertebral disc degeneration, lumbosacral region Stricture esophagus Stricture of duodenum Surgical History Surgical History History of lumbar spinal fusion 1999, 2000, 2000, 2002, 2004 follows with pain management Family History Family History Mother Diabetes mellitus Family history of malignant neoplasm of bone Social History Social History Years smoked: 15 Smoking status: Never smoker Tobacco type: cigarettes Second hand tobacco smoke exposure: No Smoking end date: 02/20/87 Alcohol intake: never Substance use: never Substance use type: does not use Lack of Transportation: No Lack of Food: Never True Current Housing: I Have Housing Concerned About Future Housing: No Difficulty Paying Gas/Electric Bills: No Difficulty Paying for Meds: No Currently Unemployed: No Education: High School Diploma/GED Difficulty w/ Childcare or Family Care: No Living arrangements: with family Additional living arrangements comments: lives w/ Uncle Occupation/Education: other Additional occupation/education comments: Disabled d/t back injury Gender identity (if verbalized by the patient): Female Spiritual care concerns: No Exam Narrative: GENERAL: Well-appearing, well-nourished, and in no acute distress. HEAD: Normocephalic, atraumatic. EYES: PERRL and EOMI. ENT: Mucous membranes moist. CHEST: Clear to auscultation. No respiratory distress. HEART: Regular rate and rhythm. Normal peripheral pulses. ABDOMEN: Soft, nontender, nondistended. Digital rectal exam that is Hemoccult negative. EXTREMITIES: Normal range of motion. No edema. SKIN: Warm, dry, no rash. NEURO: Alert and oriented x3. PSYCH: Normal mood and affect. Course Course Emergency Course: Patient resting comfortably. No internal bleeding. Will give 2 units of blood for transfusion. Broad-spectrum antibiotics ordered for pneumonia seen on x- ray. Patient accepted by the hospitalist service. Troponin elevated and will need to be trended. Vital Signs Vital signs: Vital Signs Temperature 97.6 F 01/29/24 11:43 Pulse Rate 91 01/29/24 11:43 Respiratory Rate 20 01/29/24 11:43 Blood Pressure 170/84 H 01/29/24 11:43 Pulse Oximetry 97 01/29/24 11:43 Temperature 97.6 F 01/29/24 11:43 Pulse Rate 89 01/29/24 12:27 Respiratory Rate 16 01/29/24 12:27 Blood Pressure 170/84 H 01/29/24 11:43 Pulse Oximetry 95 01/29/24 12:27 Oxygen Delivery Room Air 01/29/24 12:27 Medical Decision Making Vital Signs Vital Signs: Vital Signs Temperature 97.6 F 01/29/24 11:43 Pulse Rate 91 01/29/24 11:43 Respiratory Rate 20 01/29/24 11:43 Blood Pressure 170/84 H 01/29/24 11:43 Pulse Oximetry 97 01/29/24 11:43 Temperature 97.6 F 01/29/24 11:43 Pulse Rate 89 01/29/24 12:27 Respiratory Rate 16 01/29/24 12:27 Blood Pressure 170/84 H 01/29/24 11:43 Pulse Oximetry 95 01/29/24 12:27 Oxygen Delivery Room Air 01/29/24 12:27 Lab Data 01/29/24 11:50 01/29/24 11:50 Labs: Lab Results 01/29/24 01/29/24 01/29/24 Range/Units 11:50 12:41 13:48 WBC 3.3 L (4.5-10.0) K/mm3 RBC 3.01 L (4.2-5.4) M/mm3 Hgb 6.9 L* D (12.0-15.0) g/dL Hct 23.7 L (37.0-47.0) % MCV 78.7 L (80-100) fl MCH 22.9 L (26-34) pg MCHC 29.1 L (32-36) g/dl RDW 15.5 H (11.5-14.5) % Plt Count 304 (150-375) k/mm3 MPV 8.1 (7.4-10.4) fl Immature Gran % (Auto) 3.3 H (0-0.5) % Neut % (Auto) 68.5 (45.5-73.1) % Lymph % (Auto) 16.7 L (18.3-44.2) % [place] % (Auto) 10.3 H (2.6-8.5) % Eos % (Auto) 0.9 (0-4.4) % Baso % (Auto) 0.3 (0.2-1.2) % Lymph # (Auto) 0.55 L (0.9-3.2) K/mm3 [place] # (Auto) 0.3 (0.1-0.6) K/mm3 Eos # (Auto) 0.0 (0-0.3) K/mm3 Baso # (Auto) 0.0 (0.0-0.1) K/mm3 Abs Immat Gran (auto) 0.11 H (0.00-0.031) K/mm3 Absolute Neuts (auto) 2.3 (1.3-6.7) K/mm3 Absolute Nucleated RBC 0.000 (0.0-0.012) K/mm3 Nucleated RBC % 0.0 (0.0-0.2) % Platelet Estimate Adequate (Adequate) Hypochromasia 1+ Microcytosis 1+ (NORMAL) Schistocytes None seen Absolute Retic 0.08 (0.02-0.10) 10^6/uL Percent Retic 2.90 (0.7-4.3) % Immature Retic Fraction 29.1 H (3.0-15.9) % Retic Hgb Content 19.7 L (28.2-36.6) pg PT 13.7 (11.1-14.7) Seconds INR 1.0 APTT 23.4 (22.3-36.8) Seconds Sodium 139 (137-145) mmol/L Potassium 4.9 (3.4-5.0) mmol/L Chloride 110 H (98-107) mmol/L Carbon Dioxide 23 (22-30) mmol/L Anion Gap 6 (4-12) mmol/L BUN 32 H D (7-17) mg/dL Creatinine 1.60 H (0.7-1.0) mg/dL Estim Creat Clear Calc 22 ml/min Estimated GFR 32 L (59 - ) Glucose 121 H (65-110) mg/dL Calcium 9.3 (8.4-10.2) mg/dL Iron 19 L (37-170) ug/dL TIBC 220 L (261-462) ug/dL % Saturation 9 L (20-50) % Ferritin Pending Total Bilirubin 0.3 (0.2-1.3) mg/dL AST 32 (14-36) U/L ALT 16 (6-35) U/L Alkaline Phosphatase 104 (38-126) U/L Troponin I 0.051 H* (0.000-0.034) ng/mL Total Protein 5.0 L (6.3-8.2) g/dL Albumin 2.9 L (3.5-5.1) g/dL Lipase 162 (23-300) U/L Vitamin B12 Pending Folate Pending TSH (Reflex) Pending Blood Type O Positive Antibody Screen Negative Crossmatch See Detail Imaging Data Radiologist's impression: ITS Impressions Chest X-Ray 01/29/24 12:36 IMPRESSION: 1. New mild opacities in the superior segment of the left lower lobe suspicious for pneumonia. 2. Small bilateral pleural effusions. ECG Data EKG #1: ECG completion date: 01/29/24 ECG completion time: 11:47 EKG Interpretation: normal rate (84), sinus rhythm, no ectopy, non- specific ST changes, normal QRS, normal QT and NL axis Critical Care Time Critical Care Time Critical Care Time: Yes Total Critical Care Time: 35 Discharge Plan Discharge Clinical Impression: Pneumonia, Iron deficiency anemia, Elevated troponin Patient Disposition: Still a Patient Condition: Stable Prescriptions: No Action hydrocodone-acetaminophen 10-325 mg tablet 1 tablet PO .COMPLEX PRN (Reason: Pain) Rx Instructions: 1 tablet PO four times a day PRN; tizanidine 4 mg capsule 4 mg PO TID PRN (Reason: Insomnia) omeprazole 20 mg capsule,delayed release(DR/EC) 20 mg PO BID 90 Days Qty: 180 2RF fluticasone propionate [Flonase Allergy Relief] 50 mcg/actuation spray,suspension 1 spray NASAL BID PRN (Reason: Allergy Symptoms) Qty: 16 1RF Rx Instructions: administer into each nostril alendronate [Fosamax] 70 mg tablet 70 mg PO WEEKLY Qty: 12 1RF Rx Instructions: Wed. amlodipine 10 mg tablet 10 mg PO DAILY Qty: 90 0RF fluoxetine 40 mg capsule 80 mg PO DAILY Qty: 180 1RF trazodone 100 mg tablet 300 mg PO QHS Qty: 270 1RF ferrous sulfate 325 mg (65 mg iron) tablet,delayed release (DR/EC) 325 mg PO BID Qty: 180 1RF cholecalciferol (vitamin D3) 50 mcg (2,000 unit) capsule 2,000 unit PO DAILY Qty: 90 1RF dextroamphetamine-amphetamine [Adderall] 20 mg tablet 20 mg PO DAILY Qty: 30 0RF metoprolol succinate 25 mg tablet extended release 24 hr 25 mg PO DAILY Qty: 90 1RF Follow-up/Referrals: UNKNOWN,DOCTOR [Primary Care Provider] -
[2024-01-29 15:13] LABS: Folic Acid > 20.0 ng/mL (2.76->20); Vitamin B12 > 1000.0 pg/mL (239-931)
[2024-01-29 15:26] LABS: Troponin I 0.052 ng/mL (0.000-0.034)
--- NOTE | 2024-01-29 15:50 | PM.IMHP ---
H&P: HPI History of Present Illness Date/Time: 01/29/24 16:30 Chief Complaint: Diarrhea, shortness of breath, fatigue. Narrative: This is a 68-year-old female with history of hypertension, chronic back pain on prescription opiates, colon polyps, diverticulosis, esophageal strictures, gastroesophageal reflux disease, gastric ulcers, iron deficiency anemia, and depression who presented to the emergency department via private vehicle for evaluation of diarrhea, shortness of breath, and fatigue. The patient provides the following history. She has been feeling short of breath since just before and that has become progressively worse and is now to the point where she has to stop and rest after ambulating only 6 ft or so. She also reports a cough which has not been productive. She is also increasingly fatigued and has periods of feeling lightheaded and dizzy. More recently she has had diarrhea and reports that any time she eats she has loose stools within a very brief period of time. She has lost 10 lb in the last couple of weeks but upwards of 30 lb in the last 6 months unintentionally. She lives with her father and uncle and they both have coughs. She denies fever, syncope, chest pain, pleuritic pain, abdominal pain, hematemesis, melena, and hematochezia. No dysphagia or concerns for aspiration. Of note she has had fairly recent colonoscopies and endoscopies per Dr. Bird. In the ED: Blood pressures have been running persistently in the 170 systolic and she reports that she did not take her medications at this morning. The remainder of her vital signs are stable. Labs are significant for WBC count of 3.3, RBC count 3.01, hemoglobin 6.9, hematocrit 23.7%, MCV 78.9, platelet 304, BUN 32, creatinine 1.60, glucose 121, troponin 0.0 5 1, total protein 5.0, albumin 2.9. Chest x-ray showed new mild passed he is in the superior segment of the left lower lobe suspicious for pneumonia and small bilateral pleural effusions. Review of Systems Review of Systems: 12 systems were reviewed and are negative except for as per HPI. [facility] Past Medical History Medical History (Updated 01/29/24 @ 20:21 by Zenaida Page PA-C) Age related osteoporosis Depression Essential hypertension GERD without esophagitis Hypertension Insomnia Other intervertebral disc degeneration, lumbosacral region Stricture esophagus Stricture of duodenum Surgical History Surgical History History of lumbar spinal fusion 1999, 2000, 2000, 2002, 2004 follows with pain management Family History Family History Mother Diabetes mellitus Breast cancer Heart failure Father Heart valve replaced Sibling Diabetes mellitus Social History Social History (Updated 01/29/24 @ 20:18 by Zenaida Page PA-C) Social History: Surrogate medical decision maker: uncle León. Code status: Full code. Smoking packs per day: 0.5 Smoking cigarettes per day: 10.0 Years smoked: 15 Smoking pack-years: 7.50 Smoking status: Former smoker Tobacco type: cigarettes Second hand tobacco smoke exposure: No Smoking end date: 02/20/87 Alcohol intake: never Substance use: never Substance use type: does not use Do You Feel Safe in your Home?: Yes Lack of Transportation: No Lack of Food: Never True Current Housing: I Have Housing Concerned About Future Housing: No Difficulty Paying Gas/Electric Bills: No Difficulty Paying for Meds: No Currently Unemployed: No Education: High School Diploma/GED Difficulty w/ Childcare or Family Care: No Living arrangements: with family Additional living arrangements comments: lives w/ Uncle Occupation/Education: other Additional occupation/education comments: Disabled d/t back injury Spiritual care concerns: No Meds Home Medications and Allergies Home Medications Medication Instructions Recorded Confirmed Type hydrocodone 10 mg-acetaminophen 1 tablet PO Q4-5H Pain 03/27/19 01/29/24 History 325 mg tablet fluticasone propionate 50 1 spray intranasal BID PRN Allergy 11/09/20 01/29/24 Rx mcg/actuation nasal Symptoms #16 grams spray,suspension (Flonase Allergy Relief) tizanidine 4 mg capsule 4 mg PO TID PRN muscle cramping 02/01/21 01/29/24 History amlodipine 10 mg tablet 10 mg PO DAILY #90 tabs 06/05/23 01/29/24 Rx fluoxetine 40 mg capsule 80 mg PO DAILY #180 caps 08/15/23 01/29/24 Rx omeprazole 20 mg capsule,delayed 20 mg PO BID 3 months #180 caps 08/23/23 01/29/24 Rx release trazodone 100 mg tablet 300 mg PO QHS #270 tabs 11/30/23 01/29/24 Rx ferrous sulfate 325 mg (65 mg 325 mg PO BID #180 tabs 12/04/23 01/29/24 Rx iron) tablet,delayed release cholecalciferol (vitamin D3) 50 2,000 unit PO DAILY #90 caps 12/18/23 01/29/24 Rx mcg (2,000 unit) capsule dextroamphetamine-amphetamine 20 20 mg PO DAILY #30 tabs 01/05/24 01/29/24 Rx mg tablet (Adderall) metoprolol succinate 25 mg 25 mg PO DAILY #90 tabs 01/29/24 01/29/24 Rx tablet,extended release 24 hr Allergies Allergy/AdvReac Type Severity Reaction Status Date / Time morphine Allergy Unknown itchy Verified 01/29/24 11:07 Vital Signs Vital Signs - 24 hr 01/29/24 11:43 01/29/24 12:27 01/29/24 15:36 Temperature 97.6 F 98.3 F Pulse Rate 91 89 90 Respiratory Rate 20 16 22 H Blood Pressure 170/84 H 133/78 Pulse Oximetry 97 95 98 Oxygen Delivery Room Air Exam Narrative: General: Thin, nontoxic-appearing female in the semi-Vitale position in bed. Weight: 53 kg. BMI: 22.8. HEENT: Normocephalic, atraumatic. PERRL, EOMI. Sclera anicteric. Tacky mucous membranes. Neck: Supple. Respiratory: Lungs are clear to auscultation bilaterally. Cardiovascular: Regular rate and rhythm with S1-S2. Soft systolic murmur at the left sternal border. Gastrointestinal: Abdomen is soft, flat, nontender, and nondistended with positive bowel sounds. Skin: Warm and dry. Generalized pallor. Extremities: No cyanosis, clubbing, or edema. Radial and pedal pulses intact. Neurological: Alert. Cranial nerves 2-12 are grossly intact. No gross focal deficits to casual conversation. Psychiatric: Pleasant and cooperative with normal mood and affect. Judgment and insight intact. H&P: Results Labs Labs: Short CBC 01/29/24 Range/Units 11:50 WBC 3.3 L (4.5-10.0) K/mm3 Hgb 6.9 L* D (12.0-15.0) g/dL Hct 23.7 L (37.0-47.0) % Plt Count 304 (150-375) k/mm3 BMP 01/29/24 11:50 Sodium 139 Potassium 4.9 Chloride 110 H Carbon Dioxide 23 BUN 32 H D Creatinine 1.60 H Glucose 121 H Calcium 9.3 Cardiac Enzymes 01/29/24 01/29/24 Range/Units 11:50 14:43 Troponin I 0.051 H* 0.052 H* (0.000-0.034) ng/mL Liver Function 01/29/24 Range/Units 11:50 Total Bilirubin 0.3 (0.2-1.3) mg/dL AST 32 (14-36) U/L ALT 16 (6-35) U/L Alkaline Phosphatase 104 (38-126) U/L Albumin 2.9 L (3.5-5.1) g/dL Impressions Chest X-Ray 01/29/24 12:36 IMPRESSION: 1. New mild opacities in the superior segment of the left lower lobe suspicious for pneumonia. 2. Small bilateral pleural effusions. Assessment and Plan Assessment and plan (1) Symptomatic anemia: Code(s): D64.9 - Anemia, unspecified Status: Acute (2) Unintentional weight loss: Code(s): R63.4 - Abnormal weight loss Status: Acute (3) Diarrhea: Code(s): R19.7 - Diarrhea, unspecified Status: Acute (4) Microcytic anemia: Code(s): D50.9 - Iron deficiency anemia, unspecified Status: Acute (5) Acute kidney injury: Code(s): N17.9 - Acute kidney failure, unspecified Status: Acute (6) Dehydration: Code(s): E86.0 - Dehydration Status: Acute (7) Elevated troponin: Code(s): R79.89 - Other specified abnormal findings of blood chemistry Status: Acute (8) Protein calorie malnutrition: Code(s): E46 - Unspecified protein-calorie malnutrition Status: Acute (9) Pneumonia: Code(s): J18.9 - Pneumonia, unspecified organism Status: Acute (10) Hypertension: Code(s): I10 - Essential (primary) hypertension Status: Acute Plan The patient presented to the emergency department for evaluation of shortness of breath, fatigue, diarrhea, and cough as detailed in HPI. Labs, imaging, EKG, and all reports were personally reviewed. She has a hemoglobin of 6.9 with microcytic indices likely due to iron deficiency anemia which could explain the neutropenia as well. Stool was reportedly Hemoccult negative per ED physician though she has a history of gastritis and occult GI blood loss is certainly plausible. Some of the anemia could be due to poor nutrition as her total protein albumin are quite low with unintentional weight loss. Iron studies are pending as well as pre-albumin. Dietitian consulted for recommendations. GI has also been consulted given ongoing diarrhea. She has not been on any antibiotics recently though will check C diff and stool studies. Chest x-ray shows findings of pneumonia for which she has been started on empiric antibiotics. Blood pressures have been running high though she was not able to take her medications yet this morning. Continue antihypertensives and monitor closely. Troponin was slightly elevated but has remained flat and she has no complaints of chest pain whatsoever. I suspect these are due to elevated blood pressure however she could have a component of ischemia related to high output from anemia. An echocardiogram has been ordered. She looks dry on exam and by labs and will be hydrated overnight. I suspect her kidney function will improve with IV fluids alone. If not a further workup will need to be pursued. Her home medications will be reviewed and resumed as appropriate Findings and treatment plan were discussed with the patient. Questions were solicited and answered to satisfaction. The patient's medical management will be taken over by the hospitalist team in a.m. Quality VTE Prophylaxis VTE prophylaxis: mechanical ordered If No VTE Prophylaxis Answer both mechanical and pharmacologic: Reason no pharmacologic proph: medical contraindication (symptomatic anemia) The patient has been admitted under observation status. Hospitalist [facility] Advance Care Plan I have confirmed that the patient's Advanced Care Plan is present, code status is documented, or surrogate decision maker is listed in patient medical record.: Yes Medication Reconciliation I have utilized all available resources to obtain, update and review the patients current medications (includes all prescriptions, OTC, herbals, cannabis, and nutritional supplements).: Yes
--- NOTE | 2024-01-29 15:51 | ADMGEN ---
This patient, Kristin Medley, was admitted to IMU Room 205-02 on 01/29/24 at 1520. Patient/family oriented to hospital policies and general routines including ID bracelet, bed and alarms, visiting hours, pain management, procedures, bathroom and other care routines, personal items, smoking policy, room service/diet, and visiting hours. Information on how to activate the Rapid Response Team has been discussed. Patient/Family are encouraged to report perceived risks to care and to ask questions if they do not understand what they are told or what they should do.
[2024-01-29] MEDS: SODIUM CHLORIDE 0.9% IV 250 ML 30 ML IV CONT (17:01)
[2024-01-29 18:03] LABS: Troponin I 0.051 ng/mL (0.000-0.034)
[2024-01-29] MEDS: amLODIPine BESYLATE 5 MG TABLET PO ×2 (18:33→20:18)
[2024-01-29] MEDS: AZITHROMYCIN 500 MG/NS 250 ML 500 MG/250 ML BAG 250 MG IVPB (19:08)
[2024-01-29] MEDS: traZODone HCL 50 MG TABLET 300 MG PO (20:50)
[2024-01-29] MEDS: HYDROcodone/acetaminophen (*CRX) 10-325 MG TABLET 1 TAB PO (20:51)
[2024-01-29] MEDS: TIZANIDINE HCL 4 MG TABLET PO (20:51)
[2024-01-29] MEDS: LACTATED RINGERS 1,000 ML 75 ML IV CONT (20:51)
[2024-01-29 21:35] LABS: Prealbumin 15.3 mg/dL (17.6-36.0)
[2024-01-29] MEDS: hydrALAZINE HCL 20 MG/ML VIAL 10 MG IV PUSH (23:07)
[2024-01-30] VITALS (19 sets, daily range): BP systolic 162–224; BP diastolic 90–112; PULSE 86–101; RESP 16–20; TEMP 36.5–37.1; O2SAT 92–97; BMI 22.8
[2024-01-30] MEDS: FLUTICASONE PROPIONATE 0.05% NA SPR 16 GM BTL (*BKC) 1 SPRAY NASAL (00:11)
[2024-01-30] MEDS: LABETALOL HCL INJ 100 MG/20 ML VIAL 10 MG IV PUSH (00:12)
[2024-01-30] MEDS: cloNIDine HCL 0.1 MG TABLET PO (01:39)
[2024-01-30] MEDS: HYDROcodone/acetaminophen (*CRX) 10-325 MG TABLET 1 TAB PO ×4 (02:05→22:38)
[2024-01-30 02:44] LABS: Add Urine Microscopic? YES; Appearance Urine Clear (Clear); Bacteria Urine None Seen /hpf; Bilirubin Urine Negative (Negative); Blood Urine Negative (Negative); Color Urine Yellow (Yellow); Glucose Urine UA Negative (Negative); Ketones Urine Negative (Negative); Leukocyte Esterase Ur Negative LEU/UL (Negative); Need Manual Microscopic Reviewed; Nitrate Urine Negative (Negative); Protein Urine 2+ mg/dL (Negative); RBC Urine 0-2 /hpf (0-2); Specific Grav Ur 1.015 (1.001-1.035); Squamous Epithelial Cell Urine None Seen /hpf (Few); Urobilinogen Urine 0.2 mg/dL (<2.0); WBC Urine 0-5 /hpf (0-3); pH Urine 5.5 (5.0-9.0)
[2024-01-30 07:16] LABS: Hematocrit 29.3 % (37.0-47.0); Hemoglobin 8.9 g/dL (12.0-15.0); Mean Corpuscular HGB Conc 30.4 g/dl (32-36); Mean Corpuscular Hemoglobin 24.4 pg (26-34); Mean Corpuscular Volume 80.3 fl (80-100); Mean Platelet Volume 8.7 fl (7.4-10.4); Platelet Count Result 310 k/mm3 (150-375); Red Blood Count 3.65 M/mm3 (4.2-5.4); Red Cell Distribution Width 15.3 % (11.5-14.5); White Blood Count 4.1 K/mm3 (4.5-10.0)
[2024-01-30 08:01] LABS: Anion Gap 4 mmol/L (4-12); Blood Urea Nitrogen 31 mg/dL (7-17); Calcium 9.1 mg/dL (8.4-10.2); Carbon Dioxide 24 mmol/L (22-30); Chloride 112 mmol/L (98-107); Estimated CRCL calculation 24 ml/min; Estimated Glomerular Filt Rate 37; Glucose 109 mg/dL (65-110); Magnesium 1.9 mg/dL (1.6-2.3); Sodium 140 mmol/L (137-145)
[2024-01-30] MEDS: CHOLECALCIFEROL 1,000 UNITS TABLET 2000 UNITS PO (08:40)
[2024-01-30] MEDS: FERROUS SULFATE 325 MG TABLET DR PO ×2 (08:40→16:18)
[2024-01-30] MEDS: METOPROLOL SUCCINATE EXT REL 25 MG TABCR PO (08:40)
[2024-01-30] MEDS: PANTOPRAZOLE 40 MG TABLET PO ×2 (08:41→20:59)
[2024-01-30] MEDS: FLUoxetine HCL 20 MG CAPSULE 80 MG PO (08:41)
[2024-01-30] MEDS: amLODIPine BESYLATE 10 MG TABLET PO (08:41)
[2024-01-30] MEDS: LACTATED RINGERS 1,000 ML 75 ML IV CONT (08:45)
--- NOTE | 2024-01-30 10:36 | P.CONGI_ITS ---
<Statement entered by Félix Bird MD - 01/30/24 17:28> I, Félix Bird MD, have provided a substantive portion of the care of this patient and discussed the patient with my Nurse Practitioner. I have reviewed any new relevant radiographic and laboratory results including medications. I agree with her documentation as noted below.?I personally performed the medical decision making and much of the history and exam for this encounter. briefly here with flu-like symptom, noted to have recurrent anemia and getting iv iron now. Earlier this year had egd and colonoscopy, noted gastritic and pyloric stenosis treated with dilation. Plan is to order capsule endoscopy (we can deploy with EGD since she has stenosis and also will help to identify if may need more dilation). Continue supportive care. Assessment and Plan Assessment and plan (1) GERD without esophagitis: Code(s): K21.9 - Gastro-esophageal reflux disease without esophagitis Status: Chronic (2) Nausea and vomiting: Qualifiers: Vomiting type: bilious vomiting Qualified Code(s): R11.14 - Bilious vomiting Code(s): R11.2 - Nausea with vomiting, unspecified Status: Acute (3) Weight loss: Code(s): R63.4 - Abnormal weight loss Status: Acute (4) Stricture of duodenum: Code(s): K31.5 - Obstruction of duodenum Status: Acute (5) Diarrhea: Qualifiers: Diarrhea type: presumed infectious Qualified Code(s): R19.7 - Diarrhea, unspecified Code(s): R19.7 - Diarrhea, unspecified Status: Acute (6) Colon polyps: Qualifiers: Colon polyp type: adenomatous Colon location: transverse Qualified Code(s): D12.3 - Benign neoplasm of transverse colon Code(s): K63.5 - Polyp of colon Status: Acute Plan 1. RICO: Patient had an EGD and colonoscopy performed in August of 2023 to evaluate for anemia and at that time endoscopic evaluation showed no findings to explain anemia. Patient then had a repeat EGD January 02 which showed gastritis but no signs of active bleeding. On admission HGB 7, HCT 24. Patient received 2 units of PRBCs. Labs today show WBC is 4, HGB 9, HCT 29, MCV 80, platelets 310, INR 1.0. Total iron 19, TIBC 220, iron saturation 9%, ferritin 155, normal B12 and folate. Patient denies any signs of active GI bleeding to include hematemesis, hematochezia, or melena. Patient has never had a capsule endoscopy. She denies any NSAID, aspirin, or anticoagulants use. DDX: AVM versus IBD versus malabsorption versus neoplasm versus multifactorial etiology * primary care team to continue monitoring H&H and transfuse as needed to keep HGB > 7 * Recommend IV iron * will arrange for outpatient capsule endoscopy to further evaluate small bowel for possible source of blood loss * stool studies and labs ordered to evaluate for other conditions which may result in malabsorption 2. Early satiety/weight loss/diarrhea/personal Hx of colon polyps/diarrhea/ nausea and vomiting/pyloric stenosis: Last colonoscopy 08/23/2023 revealed diverticulosis but was otherwise normal. EGD 01/03/2024 showed gastritis but no signs of active bleeding but did show pyloric stenosis which was dilated. Patient states the following she began having flu-like symptoms including diarrhea , fatigue, and shortness of breath. She has been having intermittent but daily episodes of nausea and vomiting since August. Patient states that she has lost 10-15 lb since , current weight 116 lb. The patient admits to early satiety but states that her appetite has improved. Patient had been experiencing diarrhea since but states that her diarrhea stopped yesterday and today she had a small formed bowel movement. * Due for repeat colonoscopy August 2028 (5 year repeat) * diarrhea was likely secondary to acute infectious / inflammatory condition but as mentioned above additional labs and stool studies have been ordered * no indication for emergent endoscopic evaluation at this * continue supportive care with antiemetics * if symptoms persist may consider repeat outpatient EGD to follow-up on for previous pyloric stenosis to determine if additional dilation is required Thank you very much for allowing me to share in the care of this very nice patient. This report may have been done utilizing a voice recognition system. Attempts have been made to correct errors. However, there may be uncorrected grammatical, spelling, and recognition errors present. GI Consult Note Consult date/time: 01/30/24 10:36 Reason for consult: Anemia HPI: Kristin Medley is a 68 year old female with a past medical surgical history of pyloric stenosis, depression, HTN, GERD, insomnia, lumbar spinal fusion, peptic ulcer disease, colon polyps, and RICO she presented to the ER room 01/29/2024 with complaints of flu-like symptoms including diarrhea, shortness of breath and fatigue. GI consulted for anemia. Patient was seen by GI in August for anemia and underwent an EGD and colonoscopy which showed no source of active GI bleeding. Patient was then seen by GI in December for complaints of dysphagia and underwent an EGD on 01/03/2024. The nausea and vomiting started in August. Denies odynophagia and dysphagia. Denies reflux or regurgitation. Appetite has been poor, has lost 10-15 lbs since Thanksgiving despite eating and she feels full quickly when eating. Having daily formed bowel movements, no urgency. Had been experiencing diarrhea since after Thanksgiving which stopped yesterday. Small formed bowel movement today. No melena or hematochezia. Denies aspirin or blood thinner use. Has gallbladder. Has appendix. Had partial hysterectomy. No . Denies alcohol or smoking. Used marijuana in the past. No family history of GI cancers. Had pyloric dilation last month which helped somewhat but still not eating as much as she should. Unable to eat in the morning. Had nausea, vomiting, diarrhea recently. No coffee ground emesis. Vomit color depended on what she ate. Never had capsule endoscopy. ENDOSCOPY HISTORY: EGD: 01/03/2024 (Dr. Almonte) for nausea, vomiting and Hx of pylori stenosis Findings: The esophagus was examined mucosa was normal with a normal Z-line and no ulcers or masses. The Z-line was located 39 cm from the incisor Mild - moderate gastritis was seen in the antrum and in the pylorus. The gastritis had mild -moderate erythematous and erosive changes A benign-appearing intrinsic peptic stenosis was noted in the pylorus. The stenosis was transverse. A TTS balloon dilation was performed with a 15-18 mm balloon. The dilation time was 30 seconds for each size, at the end noted expected oozing, remaining of the duodenum was unremarkable EGD: 08/23/2023 (Dr. Almonte) for GERD, nausea, and anemia Findings: The esophagus was examined mucosa was normal with a normal Z-line and no ulcers or masses. No esophagitis, no drains, no resistance noted when scope was advance The Z-line was located 38 cm from the incisors Moderate erosive gastritis seen in the antrum. The gastritis had moderate erythematous, edematous and erosive changes. There was no mucosal bleeding, multiple biopsies were taken A moderate benign appearing and intrinsic peptic stenosis was noted in the duodenal bulb ( probably 11 mm diameter ). The stenosis was transversed only after dilation. Multiple biopsies were taken. A TTS balloon dilation was performed with 15 mm and 16.5 mm balloons. Second portion of duodenum normal Bx Results: A. Duodenal stricture, biopsies: - Mild acute duodenitis with atrophic changes - No evidence of celiac disease. B. Stomach, biopsies: - Mild chronic reactive gastritis without intestinal metaplasia - No histologic evidence of Helicobacter is noted COLONOSCOPY: 08/23/2023 (Dr. Almonte) for personal history of colon polyps and anemia Findings: A few diverticula were present in left colon. The diverticula were not actively bleeding The colon was examined and was otherwise normal, no colitis, no polyp, no AVM 5 year repeat colonoscopy recommended COLONOSCOPY: 10/21/2020 (Dr. Almonte) for CRC screening Findings: There was a single 4 mm polyp observed the sigmoid colon. Cold snare polypectomy was performed and the polyp was completely excised Multiple diverticula present in the transverse colon, in the descending colon, and in the sigmoid colon. Diverticula were not actively bleeding Five year repeat colonoscopy recommended Bx Results: SIGMOID COLON POLYP, ENDOSCOPIC REMOVAL: - TUBULAR ADENOMA LABS AND STOOL STUDIES: Labs this admission: Sodium 140, potassium 5.0, BUN 21, creatinine 1.40, GFR 37. WBC is 4, HGB 9, HCT 29, MCV 80, platelets 310, INR 1.0. Total bilirubin 0.3, AST 32, ALT 16, alkaline phosphatase 104, albumin 2.9. Calcium 9.1, magnesium 1.9, lipase 162 Total iron 19, TIBC 220, iron saturation 9%, ferritin 155, B12 > 1000, folate > 20, TSH 1.820 IMAGING: Chest Xray 01/29/2024 IMPRESSION: 1. New mild opacities in the superior segment of the left lower lobe suspicious for pneumonia. 2. Small bilateral pleural effusions. Review of Systems 2 Constitutional: Constitutional: Reports as per HPI ENT: Reports as per HPI Cardiovascular: Cardiovascular: Reports as per HPI, Denies chest pain and Reports dyspnea Respiratory: Respiratory: Reports cough and Reports dyspnea Gastrointestinal: Gastrointestinal: Reports as per HPI Musculoskeletal: Musculoskeletal: Reports as per HPI Integumentary/Breasts: Skin/Breast: Reports as per HPI Psychiatric: Psychiatric: Reports as per HPI Endocrine: Endocrine: Reports no additional endocrine complaints Hematologic/Lymphatic: Hematologic/Lymphatic: Reports no additional hematologic/lymphatic complaints [facility] Past Medical History Medical History (Updated 01/30/24 @ 10:49 by Niesha Green APRN) Stricture of duodenum Stricture esophagus Age related osteoporosis Hypertension Depression Essential hypertension GERD without esophagitis Insomnia Other intervertebral disc degeneration, lumbosacral region Surgical History Surgical History History of lumbar spinal fusion 1999, 2000, 2000, 2002, 2004 follows with pain management Family History Family History Mother Diabetes mellitus Breast cancer Heart failure Father Heart valve replaced Sibling Diabetes mellitus Social History Social History (Updated 01/29/24 @ 20:18 by Zenaida Page PA-C) Social History: Surrogate medical decision maker: uncle León. Code status: Full code. Smoking packs per day: 0.5 Smoking cigarettes per day: 10.0 Years smoked: 15 Smoking pack-years: 7.50 Smoking status: Former smoker Tobacco type: cigarettes Second hand tobacco smoke exposure: No Smoking end date: 02/20/87 Alcohol intake: never Substance use: never Substance use type: does not use Do You Feel Safe in your Home?: Yes Lack of Transportation: No Lack of Food: Never True Current Housing: I Have Housing Concerned About Future Housing: No Difficulty Paying Gas/Electric Bills: No Difficulty Paying for Meds: No Currently Unemployed: No Education: High School Diploma/GED Difficulty w/ Childcare or Family Care: No Living arrangements: with family Additional living arrangements comments: lives w/ Uncle Occupation/Education: other Additional occupation/education comments: Disabled d/t back injury Spiritual care concerns: No Meds Home Medications and Allergies Home Medications ?Medication ?Instructions ?Recorded ?Confirmed ?Type hydrocodone 10 mg-acetaminophen 1 tablet PO Q4-6H PRN Pain 03/27/19 01/29/24 History 325 mg tablet fluticasone propionate 50 1 spray intranasal BID PRN Allergy 11/09/20 01/29/24 Rx mcg/actuation nasal Symptoms #16 grams spray,suspension (Flonase Allergy Relief) tizanidine 4 mg capsule 4 mg PO TID PRN muscle cramping 02/01/21 01/29/24 History amlodipine 10 mg tablet 10 mg PO DAILY #90 tabs 06/05/23 01/29/24 Rx fluoxetine 40 mg capsule 80 mg (2 x 40 mg) PO DAILY #180 08/15/23 01/29/24 Rx caps omeprazole 20 mg capsule,delayed 20 mg PO BID 3 months #180 caps 08/23/23 01/29/24 Rx release trazodone 100 mg tablet 300 mg (3 x 100 mg) PO QHS #270 11/30/23 01/29/24 Rx tabs ferrous sulfate 325 mg (65 mg 325 mg PO BID #180 tabs 12/04/23 01/29/24 Rx iron) tablet,delayed release cholecalciferol (vitamin D3) 50 2,000 unit PO DAILY #90 caps 12/18/23 01/29/24 Rx mcg (2,000 unit) capsule dextroamphetamine-amphetamine 20 20 mg PO DAILY #30 tabs 01/05/24 01/29/24 Rx mg tablet (Adderall) metoprolol succinate 25 mg 25 mg PO DAILY #90 tabs 01/29/24 01/29/24 Rx tablet,extended release 24 hr Allergies Allergy/AdvReac Type Severity Reaction Status Date / Time morphine Allergy Unknown itchy Verified 01/29/24 11:07 Vital Signs Vital Signs - 24 hr 01/29/24 11:43 01/29/24 12:27 01/29/24 15:20 Temperature 97.6 F Pulse Rate 91 89 Respiratory Rate 20 16 Blood Pressure 170/84 H Pulse Oximetry 97 95 Oxygen Delivery Room Air Room Air 01/29/24 15:29 01/29/24 15:36 01/29/24 16:00 Temperature 98.3 F 98.4 F Pulse Rate 85 90 94 Respiratory Rate 22 H 18 Blood Pressure 133/78 177/99 H Pulse Oximetry 98 96 Oxygen Delivery 01/29/24 16:00 01/29/24 16:00 01/29/24 16:04 Temperature 98.4 F Pulse Rate 97 95 Respiratory Rate 18 Blood Pressure 177/99 H Pulse Oximetry 98 Oxygen Delivery Room Air 01/29/24 16:04 01/29/24 16:05 01/29/24 17:05 Temperature 98.4 F 98.4 F 98.5 F Pulse Rate 95 94 94 Respiratory Rate 18 18 20 Blood Pressure 177/99 H 177/99 H 177/103 H Pulse Oximetry 98 96 97 Oxygen Delivery 01/29/24 18:00 01/29/24 18:05 01/29/24 18:47 Temperature 98 F 98 F Pulse Rate 86 91 91 Respiratory Rate 22 H 22 H Blood Pressure 207/88 H 207/88 H Pulse Oximetry 95 95 Oxygen Delivery 01/29/24 19:02 01/29/24 19:02 01/29/24 19:45 Temperature 98.7 F 98.7 F 98.9 F Pulse Rate 94 94 98 Respiratory Rate 20 20 18 Blood Pressure 211/98 H 211/98 H 202/107 H Pulse Oximetry 95 95 99 Oxygen Delivery 01/29/24 20:00 01/29/24 20:00 01/29/24 20:02 Temperature 98.1 F Pulse Rate 100 102 H Respiratory Rate 18 Blood Pressure 159/109 H Pulse Oximetry 98 Oxygen Delivery Room Air 01/29/24 20:53 01/29/24 21:51 01/29/24 22:00 Temperature 97.4 F L Pulse Rate 97 94 Respiratory Rate 18 Blood Pressure 217/118 H 183/91 H Pulse Oximetry 96 Oxygen Delivery 01/29/24 22:24 01/29/24 22:25 01/29/24 23:05 Temperature Pulse Rate Respiratory Rate Blood Pressure 201/91 H 184/87 H 195/101 H Pulse Oximetry Oxygen Delivery 01/29/24 23:42 01/29/24 23:45 01/30/24 00:00 Temperature 98.7 F Pulse Rate 100 Respiratory Rate 18 Blood Pressure 207/93 H 194/93 H 207/93 H Pulse Oximetry 92 Oxygen Delivery 01/30/24 00:00 01/30/24 00:00 01/30/24 00:10 Temperature Pulse Rate 95 Respiratory Rate Blood Pressure 206/103 H Pulse Oximetry Oxygen Delivery Room Air 01/30/24 00:12 01/30/24 00:43 01/30/24 01:19 Temperature Pulse Rate 101 H Respiratory Rate Blood Pressure 206/108 H 224/112 H Pulse Oximetry Oxygen Delivery 01/30/24 01:41 01/30/24 02:00 01/30/24 08:00 Temperature 97.7 F Pulse Rate 95 95 88 Respiratory Rate 16 Blood Pressure 203/100 H 176/93 H Pulse Oximetry 97 Oxygen Delivery 01/30/24 08:40 Temperature Pulse Rate 94 Respiratory Rate Blood Pressure Pulse Oximetry Oxygen Delivery Exam 2 Const: General: cooperative, healthy appearing, comfortable, no acute distress and well developed Orientation/consciousness: oriented to person, oriented to place, oriented to time and patient oriented x3 HENMT: Head: normal to inspection, normocephalic and atraumatic Mouth: Yes Normal oral and palatal mucosa present and Yes moist mucous membranes Eyes: General: appearance normal, both eyes and all related structures C onjunctivae: conjunctivae normal Sclera: sclerae normal Pupils: Equal, round and reactive pupils present Neck: Neck: normal visual inspection Chest: Chest palpation & inspection: normal inspection of the chest Resp: Effort & Inspection: normal respiratory effort and able to speak in complete sentences Auscultation: clear to auscultation bilaterally Cardio: Jugular venous distension: no JVD Rate: regular rate Rhythm: r egular rhythm Heart sounds: S1 normal heart sound present and S2 normal heart sound present GI: Inspection: normal to inspection GI Palp: Yes Soft to palpation and Yes No hepatosplenomegaly present Auscultation: normal bowel sounds Rectal Exam: deferred Skin: General skin exam: normal color and no rashes or lesions noted Neuro: General: oriented to person, oriented to place, oriented to time and patient oriented x3 Cranial nerves: Yes Equal, round and reactive pupils present Speech: normal speech Extrem: General: normal to inspection and no clubbing, cyanosis or edema Psych: Appearance: grossly normal and well kempt Affect: normal affect Results Labs 01/30/24 05:31 01/30/24 05:31 Labs: Short CBC 01/29/24 01/30/24 Range/Units 11:50 05:31 WBC 3.3 L 4.1 L (4.5-10.0) K/mm3 Hgb 6.9 L* D 8.9 L (12.0-15.0) g/dL Hct 23.7 L 29.3 L (37.0-47.0) % Plt Count 304 310 (150-375) k/mm3 [facility] 01/29/24 01/30/24 11:50 05:31 Sodium 139 140 Potassium 4.9 5.0 Chloride 110 H 112 H Carbon Dioxide 23 24 BUN 32 H D 31 H Creatinine 1.60 H 1.40 H Glucose 121 H 109 Calcium 9.3 9.1 Cardiac Enzymes 01/29/24 01/29/24 01/29/24 Range/Units 11:50 14:43 17:26 Troponin I 0.051 H* 0.052 H* 0.051 H* (0.000-0.034) ng/mL Liver Function 01/29/24 Range/Units 11:50 Total Bilirubin 0.3 (0.2-1.3) mg/dL AST 32 (14-36) U/L ALT 16 (6-35) U/L Alkaline Phosphatase 104 (38-126) U/L Albumin 2.9 L (3.5-5.1) g/dL Urine 01/30/24 Range/Units 02:21 Urine Color Yellow (Yellow) Urine Appearance Clear (Clear) Urine pH 5.5 (5.0-9.0) Ur Specific [place] 1.015 (1.001-1.035) Urine Protein 2+ H (Negative) mg/dL Urine Glucose (UA) Negative (Negative) mg/dL
[2024-01-30 11:08] LABS: Immature Reticulocyte Fraction 30.8 % (3.0-15.9); Reticulocyte Hemoglobin Conten 20.9 pg (28.2-36.6); Reticulocyte Percent 2.72 % (0.7-4.3)
[2024-01-30] MEDS: AZITHROMYCIN 500 MG/NS 250 ML 500 MG/250 ML BAG 250 MG IVPB (11:35)
[2024-01-30] MEDS: busPIRone HCL 5 MG TABLET PO ×2 (11:35→20:58)
[2024-01-30] MEDS: hydrALAZINE HCL 20 MG/ML VIAL IV PUSH (11:41)
--- NOTE | 2024-01-30 12:40 | PC.NURSE ---
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 Respiratory rate is around 20-24. During conversation, she is able to relax a little. Heart rate remains stable. Oxygen was placed on for comfort, however Oxygen saturations remains WNL without oxygen at this time. When asked if she takes any medication at home for anxiety or if she could be withdrawing from any home medications, patient states that she could be withdrawing from Prozac because she had not had that for several days because of being sick. This RN made sure the patient was aware that the Prozac had been restarted and that she did get her dose this morning, as well as the doctor did start her on Buspar for anxiety however, it will take her a little time, and that she will need to self soothe as much as possible. Patient verbalizes understanding at this time.
--- NOTE | 2024-01-30 12:57 | PC.NURSE ---
Systolic blood pressure 204, retaken and was 199/100. Hydralazine given as ordered (see eMAR).
[2024-01-30] MEDS: IRON SUCROSE COMPLEX 400 MG, IRON SUCROSE COMPLEX 100 MG in SODIUM CHLORIDE 0.9% IV 250 ML 78.57 MG IVPB (13:54)
[2024-01-30] MEDS: NITROGLYCERIN OINTMENT 1 INCH DOSE TRANSDERM (13:54)
--- NOTE | 2024-01-30 14:59 | PC.NURSE ---
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 Requests to know when and how often she can have pain meds. Complaints of anxiety, and lastly complaints of being cold and requesting warm blankets, however is not currently covered up with blankets in room. This RN covered the patient up, discussed pain medication regime and brought in warm blankets to cover patient up. She verbalizes understanding while in the room and then no sooner does this RN leave the room, the patient is back on the call light complaining of pain, or anxiety.
--- NOTE | 2024-01-30 15:19 | PC.NURSE ---
MD made aware of patient continuous complaints of anxiety and pain. Discussed with patient that it is important to self sooth or meditate during these times of anxiety. Explained further that to the patient that because the patient quit taking some of her home meds of which some were anti-depressants and ADD/ADHD medications, she could be going through withdraw. Patient verbalizes understanding.
--- NOTE | 2024-01-30 18:05 | PC.NURSE ---
Patient again continuously on her call light with multiple complaints. This patient is alert and oriented and able to otherwise fend for herself. She continuously calls out complaining of continued anxiety/panic, pain and now is urinating on herself. This RN had the circuit board repair technician place a purewick on the patient based on conversation that the patient stated that she wears a depends or a pad because of issues the leaking. During this conversation the patient was encourage to careful as to not dislodge the purewick, or to call for assistance if she wants to use the bedside commode. Neither of which she has done. She has saturated her bed on more than one occasion. She is very impatient and unwilling to work with this team as we are caring for other patients. She appears to be attention seeking and requests to see a head nurse . This RN, discussed with the patient that in the last hour we had received a patient from the ER and prior to that had an emergency with another patient. The patient is unrealistic in conversation and states that she does not care that her circuit board repair technician said he would be back and did not come back fast enough. The patient's roommate states that the circuit board repair technician has been in and out of the room trying to help. Since then, the purewick as been removed per this RNs request and a diaper has been placed on the patient. She is encouraged to use the bedside commode as she is ambulatory with a steady gait and to call for assistance should she feel otherwise. She again request medications for anxiety, even as this RN has discussed with this patient on multiple occasions that she does not have any current medications due and that her next dose of medication is ordered for bedtime. She has also made threats to call her family to complain about her treatment with the circuit board repair technician and told the circuit board repair technician and her roommate this.
--- NOTE | 2024-01-30 20:25 | ECHO_ITS ---
Patient Info Name: Kristin Medley Age: 68 years : 1955 Gender: Female Ht: 60 in Wt: 117 lbs BSA: 1.51 m2 HR: 95 bpm BP: 203 / 100 mmHg Heart Rhythm: Sinus Rhythm Technical Quality: Good Exam Date: 01/30/2024 9:05 AM Exam Location: Echo Lab Exam Room: [facility] Patient Status: Inpatient Admit Date: 01/29/2024 Staff Ordering Physician: Zenaida Page PA-C Director Business Management: Arlet Evans RDCS Attending Provider: Jacob Meza MD Referring Physician: Kaylee VIVAR; Exam Type: CA echo doppler color flow Study Info Complete two-dimensional, color flow and Doppler transthoracic echocardiogram is performed. Summary 1. Left ventricular chamber dimension is normal. 2. Left ventricular systolic function is normal, estimated at 60-65%. 3. There is mildly increased left ventricular wall thickness. 4. The left ventricular diastolic function is grade I diastolic dysfunction. 5. Right ventricular systolic function is normal. 6. Left atrial chamber dimension is severely enlarged. 7. There is moderate aortic valve calcification. 8. There is mild to moderate aortic valve stenosis with a peak velocity of 289 cm/s, mean gradient of 15 mmHg, and aortic valve area of 1.4 cm2. 9. There is moderate mitral valve regurgitation. 10. There is mild tricuspid valve regurgitation. Left Ventricle Left ventricular chamber dimension is normal. Left ventricular systolic function is normal, estimated at 60-65%. There is mildly increased left ventricular wall thickness. The left ventricular diastolic function is grade I diastolic dysfunction. Right Ventricle Right ventricular chamber dimension is normal. Right ventricular systolic function is normal. Left Atria Left atrial chamber dimension is severely enlarged. Right Atria Right atrial chamber dimension is normal. Atrial Septum Intact interatrial septum visualized by color flow imaging. Aortic Valve The aortic valve is not well visualized. There is mild to moderate aortic valve stenosis with a peak velocity of 289 cm/s, mean gradient of 15 mmHg, and aortic valve area of 1.4 cm2. There is no aortic valve regurgitation. There is moderate aortic valve calcification. Pulmonic Valve The pulmonic valve is not well visualized. There is trace pulmonic regurgitation. Mitral Valve There is moderate mitral valve regurgitation. Tricuspid Valve There is mild tricuspid valve regurgitation. Pericardium/Pleural There is no pericardial effusion. Inferior Vena Cava Dilated inferior vena cava with >50% collapse upon inspiration consistent with elevated right atrial pressure. Aorta The aortic root size at the sinus of Valsalva is normal. Left Ventricular Outflow Tract Name Value Normal LVOT 2D LVOT Diameter 2.0 cm LVOT Doppler LVOT Peak Gradient 7 mmHg LVOT Mean Gradient 3 mmHg LVOT VTI 26 cm LVOT VTI/AV VTI Ratio 0.4 LVOT Stroke Volume 84 ml LVOT CO 16.5 l/min LVOT CI 11.0 l/min/m2 Pulmonic Valve Name Value Normal PV Doppler PV Peak Gradient 4 mmHg PV Regurgitation Doppler ND Peak End Diastolic Velocity 80 cm/s Mitral Valve Name Value Normal MV Doppler MV Peak Gradient 9 mmHg MV Mean Gradient 4 mmHg MV Decel Platte 465 cm/s2 MV PHT 48 ms MV Area (PHT) 4.6 cm2 4.0-5.0 MV Area (Cont Eq VTI) 1.9 cm2 MV Regurgitation Doppler MR Peak Gradient 225 mmHg MV Diastolic Function MV E Peak Velocity 77 cm/s MV A Peak Velocity 95 cm/s MV E/A 0.8 MV Decel Time 165 ms MV Annular TDI MV E/e' (Septal) 14.2 <=8.0 MV E/e' (Lateral) 7.9 <=8.0 MV E/e' (Average) 11.1 Tricuspid Valve Name Value Normal TV Regurgitation Doppler TR Peak Velocity 467 cm/s TR Peak Gradient 87 mmHg Aorta Name Value Normal Ascending Aorta Ao Root Diameter (2D) 3.3 cm Ao Root Diam Index (2D) 2.2 cm/m2 Aortic Valve Name Value Normal AV Doppler AV Peak Velocity 289 cm/s AV Peak Gradient 33 mmHg AV Mean Gradient 15 mmHg AV VTI 61 cm AV Area (Cont Eq VTI) 1.4 cm2 >=3.0 AV Area (Cont Eq Harshal) 1.6 cm2 AV Regurgitation 2D LVOT Area 3.2 cm2 Ventricles Name Value Normal LV Dimensions 2D/MM IVS Diastolic Thickness (2D) 0.9 cm 0.6-1.0 LVID Diastole (2D) 5.3 cm 3.8-5.2 LVIW Diastolic Thickness (2D) 0.9 cm 0.6-0.9 LVID Systole (2D) 3.8 cm 2.2-3.5 LVOT Diameter 2.0 cm LV Mass (2D Cubed) 168.95 g 67.00-162.00 LV Mass Index (2D Cubed) 112 g/m2 43-95 Relative Wall Thickness (2D) 0.33 LV Fractional Shortening/Ejection Fraction 2D/MM LV Fractional Shortening (2D) 29 % 27-45 LV EF (2D Teicholz) 55 % 54-74 LV Diastolic Volume (4C MOD) 102 ml LV EF (4C MOD) 51 % LV Diastolic Length (4C) 8.3 cm LV Systolic Length (4C) 7.5 cm LV Stroke Volume (4C MOD) 52 ml Atria Name Value Normal LA Dimensions LA Dimension (2D) 4.5 cm 2.7-3.8 LA Dimen Index (2D) 3.0 cm/m2 LA Volume (4C A-L) 104 ml RA Dimensions RA Area (4C) 16.8 cm2 <=18.0 Report Signatures
[2024-01-30] MEDS: lisinopriL 10 MG TABLET PO (20:59)
[2024-01-30] MEDS: TIZANIDINE HCL 4 MG TABLET PO (20:59)
[2024-01-30] MEDS: hydroCHLOROthiazide 12.5 MG CAPSULE PO (20:59)
[2024-01-30] MEDS: traZODone HCL 50 MG TABLET 300 MG PO (20:59)
[2024-01-31] VITALS (13 sets, daily range): BP systolic 165–188; BP diastolic 88–102; PULSE 83–108; RESP 20–22; TEMP 36.6–36.8; O2SAT 90–95
[2024-01-31] MEDS: LACTATED RINGERS 1,000 ML 75 ML IV CONT (03:26)
[2024-01-31] MEDS: HYDROcodone/acetaminophen (*CRX) 10-325 MG TABLET 1 TAB PO ×2 (05:34→09:55)
[2024-01-31] MEDS: FLUTICASONE PROPIONATE 0.05% NA SPR 16 GM BTL (*BKC) 1 SPRAY NASAL (08:56)
[2024-01-31] MEDS: amLODIPine BESYLATE 10 MG TABLET PO (08:57)
[2024-01-31] MEDS: FERROUS SULFATE 325 MG TABLET DR PO (08:57)
[2024-01-31] MEDS: FLUoxetine HCL 20 MG CAPSULE 80 MG PO (08:57)
[2024-01-31] MEDS: CHOLECALCIFEROL 1,000 UNITS TABLET 2000 UNITS PO (08:57)
[2024-01-31] MEDS: lisinopriL 10 MG TABLET PO ×2 (08:57→12:53)
[2024-01-31] MEDS: METOPROLOL SUCCINATE EXT REL 25 MG TABCR PO (08:58)
[2024-01-31] MEDS: hydroCHLOROthiazide 12.5 MG CAPSULE PO (08:58)
[2024-01-31] MEDS: TIZANIDINE HCL 4 MG TABLET PO (08:58)
[2024-01-31] MEDS: busPIRone HCL 5 MG TABLET PO (08:58)
[2024-01-31] MEDS: PANTOPRAZOLE 40 MG TABLET PO (08:58)
[2024-01-31] MEDS: ACETAMINOPHEN 325 MG TABLET 650 MG PO (09:00)
[2024-01-31] MEDS: IRON SUCROSE COMPLEX 400 MG, IRON SUCROSE COMPLEX 100 MG in SODIUM CHLORIDE 0.9% IV 250 ML 78.57 MG IVPB (09:05)
--- NOTE | 2024-01-31 12:35 | P.PNIM_ITS ---
Progress Note: A&P Assessment and Plan (1) Symptomatic anemia: Code(s): D64.9 - Anemia, unspecified Status: Acute (2) Unintentional weight loss: Code(s): R63.4 - Abnormal weight loss Status: Acute (3) Diarrhea: Qualifiers: Diarrhea type: presumed infectious Qualified Code(s): R19.7 - Diarrhea, unspecified Code(s): R19.7 - Diarrhea, unspecified Status: Acute (4) Microcytic anemia: Code(s): D50.9 - Iron deficiency anemia, unspecified Status: Acute (5) Acute kidney injury: Code(s): N17.9 - Acute kidney failure, unspecified Status: Acute (6) Dehydration: Code(s): E86.0 - Dehydration Status: Acute (7) Elevated troponin: Code(s): R79.89 - Other specified abnormal findings of blood chemistry Status: Acute (8) Protein calorie malnutrition: Code(s): E46 - Unspecified protein-calorie malnutrition Status: Acute (9) Pneumonia: Code(s): J18.9 - Pneumonia, unspecified organism Status: Acute (10) Hypertension: Code(s): I10 - Essential (primary) hypertension Status: Acute Plan Pneumonia CXR showed RUL opacities suggestive of Pneumonia ON Rocephin and Azithromycin Blood culture negative so far monitor Anemia, iron deficiency Iron sat 9 aand ferritin 155 hb 8.9 s/p 2 units of pRBC s/p 1000mg IV venofer GI consulted and noted that patient has has endoscopy prior with no remarkable findings Recommended outpatient capsule endoscopy Hypertension with elevated blood pressure Patient on Amlodipine and Metoprolol Lisinopril and HCTZ added monitor Elevated troponin demand ischemia ECHO EF 60-65% with grade I diastolic dysfunction Troponin trends flat monitor Diarrhea resolved DVT prophylaxis SCDs Subjective Date/time seen: 01/30/24 12:35 Date of service 01/30/24 Interval history: patient was anxious at bedside Patient received 2 units of blood on admission for Hb 6.5 GI consulted and evaluated and recommended capsule endoscopy outpatient Review of Systems Review of Systems: 12 systems were reviewed and are negativ e except for as per HPI. Exam Narrative: General: Thin, nontoxic-appearing female in the semi-Vitale position in bed. Weight: 53 kg. BMI: 22.8. HEENT: Normocephalic, atraumatic. PERRL, EOMI. Sclera anicteric. Tacky mucous membranes. Neck: Supple. Respiratory: Lungs are clear to auscultation bilaterally. Cardiovascular: Regular rate and rhythm with S1-S2. Soft systolic murmur at the left sternal border. Gastrointestinal: Abdomen is soft, flat, nontender, and nondistended with positive bowel sounds. Skin: Warm and dry. Generalized pallor. Extremities: No cyanosis, clubbing, or edema. Radial and pedal pulses intact. Neurological: Alert. Cranial nerves 2-12 are grossly intact. No gross focal deficits to casual conversation. Psychiatric: Pleasant and cooperative with normal mood and affect. Judgment and insight intact. Objective Data Vital Signs Vital Signs: Vital Signs - 24 hr 01/30/24 14:00 01/30/24 15:30 01/30/24 16:00 Temperature 98.3 F Pulse Rate 92 99 Respiratory Rate 20 Blood Pressure 162/94 H 191/99 H Pulse Oximetry 95 Oxygen Delivery 01/30/24 16:00 01/30/24 16:00 01/30/24 18:00 Temperature Pulse Rate 99 86 93 Respiratory Rate 20 Blood Pressure Pulse Oximetry 95 Oxygen Delivery Room Air 01/30/24 20:00 01/30/24 20:00 01/30/24 21:20 Temperature 98.1 F Pulse Rate 97 100 Respiratory Rate 20 Blood Pressure 200/102 H Pulse Oximetry 94 Oxygen Delivery Room Air 01/30/24 22:00 01/30/24 22:32 01/31/24 00:00 Temperature Pulse Rate 89 Respiratory Rate Blood Pressure 178/90 H Pulse Oximetry Oxygen Delivery Room Air 01/31/24 00:00 01/31/24 00:23 01/31/24 02:00 Temperature 97.8 F Pulse Rate 83 91 94 Respiratory Rate 20 Blood Pressure 171/89 H Pulse Oximetry 91 Oxygen Delivery 01/31/24 04:00 01/31/24 04:00 01/31/24 04:46 Temperature 98.0 F Pulse Rate 108 H 96 Respiratory Rate 20 Blood Pressure 182/88 H Pulse Oximetry 90 Oxygen Delivery Room Air 01/31/24 06:00 01/31/24 08:00 01/31/24 08:58 Temperature 97.8 F Pulse Rate 91 99 97 Respiratory Rate 22 H Blood Pressure 165/102 H Pulse Oximetry 91 Oxygen Delivery Intake/Output Intake/Output: Intake & Output 01/28/24 01/29/24 01/30/24 01/31/24 23:59 23:59 23:59 23:59 Intake Total 1250 2372.5 240 Output Total 800 550 Balance 1250 1572.5 -310 Meds/Results Medications: Active Medications Generic Name Dose Route Start Last Admin Trade Name Freq PRN Reason Stop Dose Admin Acetaminophen 650 mg 01/29/24 13:55 01/31/24 09:00 Acetaminophen 325 Mg Tablet PO 650 mg Q4H PRN Administration Mild Pain (1-3) or Fever Hydrocodone Bitart/Acetaminophen 1 tab 01/29/24 20:35 01/31/24 09:55 Hydrocodone/Acetaminophen (*Crx) 10-325 Mg Tablet PO 1 tab Q4-6H PRN Administration Pain Rated 4-6 Amlodipine Besylate 10 mg 01/30/24 09:00 01/31/24 08:57 Amlodipine Besylate 10 Mg Tablet PO 10 mg DAILY DERRICK Administration Buspirone HCl 5 mg 01/30/24 21:00 01/31/24 08:58 Buspirone Hcl 5 Mg Tablet PO 5 mg Q12HR DERRICK Administration Ferrous Sulfate 325 mg 01/30/24 09:00 01/31/24 08:57 Ferrous Sulfate [address] PO 325 mg BID DERRICK Administration Fluoxetine HCl 80 mg 01/30/24 09:00 01/31/24 08:57 Fluoxetine Hcl 20 Mg Capsule PO 80 mg DAILY DERRICK Administration Fluticasone Propionate 1 spray 01/29/24 20:11 01/31/24 08:56 Fluticasone Propionate 0.05% Na Spr 16 Gm Btl (*Bkc) NASAL 1 spray Q12HR PRN Administration Allergy Symptoms Hydralazine HCl 20 mg 01/30/24 06:20 01/30/24 11:41 Hydralazine Hcl 20 Mg/Ml Vial IV PUSH 20 mg Q4H PRN Administration SBP>180 Hydrochlorothiazide 12.5 mg 01/30/24 17:10 01/31/24 08:58 Hydrochlorothiazide 12.5 Mg Capsule PO 12.5 mg QAM DERRICK Administration Ceftriaxone Sodium 1 gm in 50 mls @ 100 mls/hr 01/30/24 12:00 01/30/24 11:35 Rocephin 1 Gm/Ns 50 Ml IVPB 100 mls/hr Q24H DERRICK Administration Azithromycin 500 mg in 250 mls @ 250 mls/hr 01/30/24 12:00 01/30/24 11:35 Zithromax IVPB 250 mls/hr Q24H DERRICK Administration Lactated Ringer's 1,000 mls @ 75 mls/hr 01/29/24 20:30 01/31/24 03:26 Lr - Lactated Ringers Iv IV CONT 75 mls/hr .[id number] DERRICK Administration Lisinopril 10 mg 01/30/24 17:10 01/31/24 08:57 Lisinopril 10 Mg Tablet PO 10 mg DAILY DERRICK Administration Metoprolol Succinate 25 mg 01/30/24 09:00 01/31/24 08:58 Metoprolol Succinate Ext Rel 25 Mg Tabcr PO 25 mg DAILY DERRICK Administration Miscellaneous Information 1 each 01/29/24 00:01 01/31/24 04:48 Nonformulary Drug (Dextroamphetamine-Amphetamine [Adderall] 20 Mg Tablet)Can Patient Use F XX 02/28/24 00:[address] [facility] Non-Formulary Medication 20 mg 01/30/24 09:00 Dextroamphetamine-Amphetamine [Adderall] PO 02/29/24 08:59 DAILY DERRICK Pantoprazole Sodium 40 mg 01/30/24 09:00 01/31/24 08:58 Pantoprazole 40 Mg Tablet PO 40 mg Q12HR DERRICK Administration Perflutren Lipid Microsphere 0 ml 01/29/24 20:25 Perflutren Lipid Microspheres 1.5 Ml Vial Diluted To 10 Ml Total Volume IV PUSH 02/01/24 20:25 ONCE PRN adequate visualization Protocol Promethazine HCl 12.5 mg 01/29/24 13:55 Promethazine Hcl 25 Mg/Ml Ampul IV PUSH Q6H PRN Nausea Tizanidine HCl 4 mg 01/29/24 20:11 01/31/24 08:58 Tizanidine Hcl 4 Mg Tablet PO 4 mg TID PRN Administration muscle cramping Trazodone HCl 300 mg 01/29/24 21:00 01/30/24 20:59 Trazodone Hcl 50 Mg Tablet PO 300 mg QHS DERRICK Administration Vitamin D 2,000 units 01/30/24 09:00 01/31/24 08:57 Cholecalciferol 1,000 Units Tablet PO 2,000 units DAILY DERRICK Administration Radiology Results: ITS Impressions Chest X-Ray 01/29/24 12:36 IMPRESSION: 1. New mild opacities in the superior segment of the left lower lobe suspicious for pneumonia. 2. Small bilateral pleural effusions. Quality VTE Prophylaxis VTE prophylaxis: mechanical ordered
--- NOTE | 2024-01-31 12:48 | PM.DS ---
DS: Admitting Diagnosis Discharge Date 01/31/24 Admitting Diagnosis Diarrhea, shortness of breath, fatigue. DS: Discharge Diagnosis Discharge Diagnosis (1) Pneumonia: Code(s): J18.9 - Pneumonia, unspecified organism Status: Acute (2) Iron deficiency anemia: Code(s): D50.9 - Iron deficiency anemia, unspecified Status: Acute (3) Elevated troponin: Code(s): R79.89 - Other specified abnormal findings of blood chemistry Status: Acute (4) Acute kidney injury: Code(s): N17.9 - Acute kidney failure, unspecified Status: Acute DS: Summary Hospital Course Hospital Course: This is a 68-year-old female with history of hypertension, chronic back pain on prescription opiates, colon polyps, diverticulosis, esophageal strictures, gastroesophageal reflux disease, gastric ulcers, iron deficiency anemia, and depression who presented to the emergency department via private vehicle for evaluation of diarrhea, shortness of breath, and fatigue. The patient provides the following history. She has been feeling short of breath since just before and that has become progressively worse and is now to the point where she has to stop and rest after ambulating only 6 ft or so. She also reports a cough which has not been productive. She is also increasingly fatigued and has periods of feeling lightheaded and dizzy. More recently she has had diarrhea and reports that any time she eats she has loose stools within a very brief period of time. She has lost 10 lb in the last couple of weeks but upwards of 30 lb in the last 6 months unintentionally. She lives with her father and uncle and they both have coughs. She denies fever, syncope, chest pain, pleuritic pain, abdominal pain, hematemesis, melena, and hematochezia. No dysphagia or concerns for aspiration. Of note she has had fairly recent colonoscopies and endoscopies per Dr. Bird. In the ED: Blood pressures have been running persistently in the 170 systolic and she reports that she did not take her medications at this morning. The remainder of her vital signs are stable. Labs are significant for WBC count of 3.3, RBC count 3.01, hemoglobin 6.9, hematocrit 23.7%, MCV 78.9, platelet 304, BUN 32, creatinine 1.60, glucose 121, troponin 0.0 5 1, total protein 5.0, albumin 2.9. Chest x-ray showed new mild passed he is in the superior segment of the left lower lobe suspicious for pneumonia and small bilateral pleural effusions. Patient was managed for Pneumonia with Rocephin anbd Azithromycin, continues to do well and was discharged today on Cefdinir and Doxycycline x 5 days. iron Def anemia, 6.5 admission, patient received 2 units of PRBCs. Iron panel showed iron saturation of 6. Patient received 1000 mg IV iron infusion. GI was consulted, noted the patient already had endoscopy in the recent past, recommended a capsule endoscopy of patient. Reticulocyte count was low, therefore patient was not discharged with referral to Oncology for further evaluation. Patient will follow-up with GI as instructed for capsule endoscopy. Hypertension with elevated blood pressure, patient's blood pressure was elevated, her home amlodipine and metoprolol were continued. Lisinopril initially started at 10 mg and hydrochlorothiazide 12.5 mg, blood pressure remained improved but remained somewhat elevated dose lisinopril was adjusted to 20 mg daily and continue amlodipine 10 mg daily, metoprolol 25 mg daily, and hydrochlorothiazide 12.5 mg daily. Patient will follow up closely with his primary care physician. Elevated troponin was due to demand given elevated blood pressure and anemia. Echo no regional wall motion abnormality and the EF was normal. Troponin was flutter patient remains chest pain-free. Diarrhea resolved, and MAHNAZ improved, creatinine improved to 1.4 from 1.6. Patient's oral intake is adequate. To follow PCP. Follow PCP in 3-5 days, follow-up with the GI as instructed and follow up with Oncology referral for bone marrow evaluation. Pneumonia CXR showed RUL opacities suggestive of Pneumonia ON Rocephin and Azithromycin Blood culture negative so far monitor Anemia, iron deficiency Iron sat 9 aand ferritin 155 hb 8.9 s/p 2 units of pRBC s/p 1000mg IV venofer GI consulted and noted that patient has has endoscopy prior with no remarkable findings Recommended outpatient capsule endoscopy Hypertension with elevated blood pressure Patient on Amlodipine and Metoprolol Lisinopril and HCTZ added monitor Elevated troponin demand ischemia ECHO EF 60-65% with grade I diastolic dysfunction Troponin trends flat monitor Diarrhea resolved Time Spent with Patient Time attestation: Total time spent providing and/or coordinating discharge services: DS: Data Data Completed and Pending Labs on day of discharge: Preliminary micro results at discharge 01/29/24 18:57 Blood Culture - Preliminary Blood 01/29/24 19:06 Blood Culture - Preliminary Blood Discharge Plan Discharge Attending physician on discharge: Emeli Curran Consulting providers: Félix Bird; Lazaro Jefferson Discharging Clinician: Emeli Curran Anticipated Discharge Date/Time: 01/31/24 12:24 Patient Disposition: Home, Self-Care Activity: as tolerated Diet: as tolerated Patient Instructions: Antibiotic Form Patient Language: Portuguese Stand Alone Forms: General Discharge Information Follow-up/Referrals: Lazaro Jefferson MD [Physician] - 1 Week (anemia with suppressed reticulocytes ?Bone marrow disease ) Efrain Kyle MD [Primary Care Provider] - (F/u with PCP in 3-5 days ) Félix Bird MD [Physician] - (F/u with GI as instructed ) Discharge Medications: New buspirone 5 mg Tablet 5 mg PO Q12HR 7 Days Qty: 14 0RF doxycycline hyclate 100 mg capsule 100 mg PO BID 5 Days Qty: 10 0RF hydrochlorothiazide 12.5 mg Capsule 12.5 mg PO QAM 30 Days Qty: 30 1RF lisinopril 10 mg Tablet 20 mg PO DAILY 30 Days Qty: 60 0RF cefdinir 300 mg capsule 300 mg PO Q12H 5 Days Qty: 10 0RF Continued hydrocodone-acetaminophen 10-325 mg tablet 1 tablet PO Q4-6H PRN (Reason: Pain) tizanidine 4 mg capsule 4 mg PO TID PRN (Reason: muscle cramping) omeprazole 20 mg capsule,delayed release(DR/EC) 20 mg PO BID 90 Days Qty: 180 2RF fluticasone propionate [Flonase Allergy Relief] 50 mcg/actuation spray,suspension 1 spray NASAL BID PRN (Reason: Allergy Symptoms) Qty: 16 1RF Rx Instructions: administer into each nostril amlodipine 10 mg tablet 10 mg PO DAILY Qty: 90 0RF fluoxetine 40 mg capsule 80 mg PO DAILY Qty: 180 1RF trazodone 100 mg tablet 300 mg PO QHS Qty: 270 1RF cholecalciferol (vitamin D3) 50 mcg (2,000 unit) capsule 2,000 unit PO DAILY Qty: 90 1RF dextroamphetamine-amphetamine [Adderall] 20 mg tablet 20 mg PO DAILY Qty: 30 0RF metoprolol succinate 25 mg tablet extended release 24 hr 25 mg PO DAILY Qty: 90 1RF Discontinued ferrous sulfate 325 mg (65 mg iron) tablet,delayed release (DR/EC) 325 mg PO BID Qty: 180 1RF Other Ambulatory Orders: Basic Metabolic Panel (Routine) Timeframe: 2 Days Location: Determined by Patient Ordered By: Emeli Curran Complete Blood Count no Diff (Routine) Timeframe: 2 Days Location: Determined by Patient Ordered By: Emeli Curran Date of admission: 01/29/24 13:55 Primary Care Provider: Efrain Kyle Admitting Provider: Jacob Meza Attending physician on admission: Jacob Meza Condition: Stable
--- NOTE | 2024-01-31 14:06 | PCRCNOTE ---
HOME O2 EVAL COMPLETE, NO REQUIREMENTS
[2024-02-01 04:13] LABS: Haptoglobin 407 mg/dL (43-212)
[2024-02-03 03:48] LABS: Immunoglobulin A 25 mg/dL (70-320); TTG IGA AB <1.0 U/mL; Tissue Transglutaminase IgG Ab <1.0 U/mL
[2024-02-08 16:38] LABS: Erythropoietin (EPO) 14.3 mIU/mL (2.6-18.5)
== END 2024-01-31 13:54 | disposition home or self-care (01) ==
LOC: ANHED 14:13 → ANHIMU 15:10
PROVIDERS: Nurse Practitioner Family; Physician Assistant; Admitting Provider Internal Medicine; Emergency Provider Emergency Medicine; PCP Family Medicine; Visit Provider Internal Medicine
DX: J18.9 Pneumonia, unspecified organism (principal); D50.9 Iron deficiency anemia, unspecified; R79.89 Other specified abnormal findings of blood chemistry; N17.9 Acute kidney failure, unspecified; R63.4 Abnormal weight loss; Z68.22 Body mass index [BMI] 22.0-22.9, adult; E46 Unspecified protein-calorie malnutrition; R11.14 Bilious vomiting; R19.7 Diarrhea, unspecified; K31.1 Adult hypertrophic pyloric stenosis; I10 Essential (primary) hypertension; M54.9 Dorsalgia, unspecified; G89.29 Other chronic pain; K57.90 Diverticulosis of intestine, part unspecified, without perforation or abscess without bleeding; E86.0 Dehydration; K22.2 Esophageal obstruction; K21.9 Gastro-esophageal reflux disease without esophagitis; K31.5 Obstruction of duodenum; R53.1 Weakness; M81.0 Age-related osteoporosis without current pathological fracture; F32.A Depression, unspecified; G47.00 Insomnia, unspecified; Z98.1 Arthrodesis status; Z20.822 Contact with and (suspected) exposure to COVID-19; Z79.891 Long term (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 of 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; Z79.899 Other long term (current) drug therapy; Z86.0100 Personal history of colon polyps, unspecified; Z87.11 Personal history of peptic ulcer disease; Z87.891 Personal history of nicotine dependence
CPT/HCPCS: 36415; 36430; 71046; 80048; 80053; 81001; 82607; 82668; 82728; 82746; 82784; 83010; 83540; 83550; 83690; 83735; 84134; 84443; 84484; 85025; 85027; 85046; 85610; 85730; 86364; 86850; 86900; 86901; 86923; 87040; 87426; 87804; 93005; 93306; 94618; 96365; 96366; 96367; 96375; 99285; A9270; G0378; J0360; J0456; J0696; J1756; J7050; J7120; P9016

== ENCOUNTER 2024-02-23 15:02 | Outpatient (CLI) | payer MEDICARE, SELFPAY ==
[2024-02-23 15:34] LABS: Hematocrit 33.2 % (37.0-47.0); Hemoglobin 9.6 g/dL (12.0-15.0); Mean Corpuscular HGB Conc 28.9 g/dl (32-36); Mean Corpuscular Hemoglobin 23.9 pg (26-34); Mean Corpuscular Volume 82.8 fl (80-100); Mean Platelet Volume 8.2 fl (7.4-10.4); Platelet Count Result 202 k/mm3 (150-375); Red Blood Count 4.01 M/mm3 (4.2-5.4); Red Cell Distribution Width 17.8 % (11.5-14.5); White Blood Count 3.6 K/mm3 (4.5-10.0)
[2024-02-23 15:45] LABS: Anion Gap 4 mmol/L (4-12); Blood Urea Nitrogen 28 mg/dL (7-17); Calcium 9.3 mg/dL (8.4-10.2); Carbon Dioxide 28 mmol/L (22-30); Chloride 107 mmol/L (98-107); Estimated Glomerular Filt Rate 37; Glucose 101 mg/dL (65-110); Potassium 4.3 mmol/L (3.4-5.0); Sodium 139 mmol/L (137-145)
== END 2024-02-23 15:03 | disposition home or self-care (01) ==
LOC: ANHLAB 15:04
PROVIDERS: PCP Family Medicine; Visit Provider Internal Medicine
DX: D50.9 Iron deficiency anemia, unspecified (principal); N17.9 Acute kidney failure, unspecified
CPT/HCPCS: 36415; 80048; 85027

== ENCOUNTER 2024-02-28 12:17 | Outpatient (CLI) | payer MEDICARE, SELFPAY ==
--- NOTE | ~2024-02-28 | XR_ITS ---
Clinical Indication: Dyspnea PA and lateral views of the chest: Comparison: 01/29/2024 Findings: [id number] bilateral pleural effusions are present, right greater than left. There i s central pulmonary venous congestive change. Cardiomediastinal silhouette is within normal limits. Bones and soft tissues are unremarkable. Impression: [id number] bilateral pleural effusion with central pulmonary venous congestive change. Reviewed, dictated and finalized at location [facility] [employer] Impression: [id number] bilateral pleural effusion with central pulmonary venous mat estive change.
== END 2024-02-28 12:18 | disposition home or self-care (01) ==
LOC: GOSHIMG 12:18
PROVIDERS: PCP Nurse Practitioner Family; Visit Provider Nurse Practitioner Family
DX: J90 Pleural effusion, not elsewhere classified (principal); J81.1 Chronic pulmonary edema
CPT/HCPCS: 71046

== ENCOUNTER 2024-03-13 10:55 | Outpatient (CLI) | payer MEDICARE, SELFPAY ==
[2024-03-13 20:26] LABS: Alanine Aminotransferase 23 U/L (6-35); Albumin Level 3.4 g/dL (3.5-5.1); Alkaline Phosphatase 107 U/L (38-126); Anion Gap 7 mmol/L (4-12); Aspartate Amino Transferase 29 U/L (14-36); Bilirubin,Total 0.3 mg/dL (0.2-1.3); Blood Urea Nitrogen 33 mg/dL (7-17); Calcium 9.5 mg/dL (8.4-10.2); Carbon Dioxide 25 mmol/L (22-30); Chloride 107 mmol/L (98-107); Estimated Glomerular Filt Rate 42; Glucose 67 mg/dL (65-110); Sodium 139 mmol/L (137-145)
--- OUTSIDE RECORDS SUMMARY | 2024-03-14 23:41 | XMS_ITS | Patient Health Record ---
Author Organization [facility] Address [address] [place] [address] VIDHYA Johnson [address] Care Team Providers Care Spot Washer Name Role Phone Anabella CARMEN, Joy Primary Care Provider Unavailable Feng Hendrickson Unavailable [phone] ALLERGIES Allergen (clinical drug ingredient) Drug/Non Drug Allergy documented on EMR Reaction Allergy Type Onset Date Status aripiprazole Aripiprazole nausea and vomiting Drug Allergy Active clindamycin Clindamycin diarrhea Drug Allergy Act lucian fentanyl Fentanyl nausea Drug Allergy Active morphine Morphine rash/itching Drug Allergy Acti ve RESULTS Component Value Reference Range Notes Encore Interactive Results (Not yet reviewed by provider) Interpretation: Performing Lab:[id number] [employer], [id number] [facility] [address] Angelika Garcia MD Notes/Report: 4-ANPP: Fentanyl Negative. Acetyl fentanyl: Fentanyl Negative. Acetyl norfenta nyl: Fentanyl Negative. Acryl fentanyl: Fentanyl Negative. Carfentanil: Fentany l Negative. Para-fluorofentanyl: Fentanyl Negative. Codeine Quantification negative 50 ng/mL Morphine Quantification negative 50 ng/mL Hydrocodone Quantification positive-123.399 50 ng/mL Norhydrocodone Quantification positive-255.215 50 ng/m L Hydromorphone Quantification negative 50 ng/mL Oxycodone Quantification negative 50 ng/mL Noroxycodone Quantification negative 50 ng/mL Oxymorphone Quantification negative 50 ng/mL Buprenorphine Quantification negative 5 ng/mL Norbuprenorphine Quantification negative 20 ng/mL Fentanyl Quantification negative 1 ng/mL Norfentanyl Quantification negative 8 ng/mL Methadone Quantification negative 100 ng/mL EDDP (Methadone metabolite) Quantification negative 100 ng/mL Tramadol Quantification negative 100 ng/mL P-ekgmbgnxg-rzrwudmm Quantification negative 100 n g/mL C-Djhidhren-Iurvhjmj Quantification negative 100 n g/mL Tapentadol Quantification negative 50 ng/mL Meperidine Quantification negative 50 ng/mL Normeperidine Quantification negative 50 ng/mL Alpha-Hydroxyalprazolam Quantification negative 20 ng/mL 5-Ovvks-Heyzlomrcl Quantification negative 20 ng/m L Lorazepam Quantification negative 40 ng/mL Nordiazepam Quantification negative 40 ng/mL Temazepam Quantification negative 50 ng/mL Oxazepam Quantification negative 40 ng/mL Amphetamine Quantification positive-> 17178 100 ng/mL Methylphenidate Quantification negative 50 ng/mL Ritalinic Acid Quantification negative 50 ng/mL Citalopram/Escitalopram Quantification negative 25 ng/mL N-Desmethylcitalopram Quantification negative 25 n g/mL Hydroxybupropion Quantification negative 50 ng/mL Duloxetine Quantification negative 25 ng/mL Fluoxetine Quantification positive-> 3200 25 ng/mL NorFluoxetine Quantification positive-> 3200 25 ng/mL Paroxetine Quantification negative 25 ng/mL Sertraline Quantification negative 10 ng/mL Trazodone Quantification positive-> 1280 10 ng/mL Venlafaxine Quantification negative 100 ng/mL Desmethylvenlafaxine Quantification negative 100 n g/mL Aripipazole Quantification negative 5 ng/mL OPC-3373 Quantification negative 15 Clozapine Quantification negative 25 ng/mL N-Desmethylclozapine Quantification negative 25 ng /mL Haloperidol Quantification negative 5 ng/mL Reduced Haloperidol Quantification negative 5 ng/m L Olanzapine Quantification negative 25 ng/mL Quetiapine Quantification negative 25 ng/mL Norquetiapine Quantification negative 25 ng/mL Risperidone Quantification negative 10 ng/mL Hydroxyrisperidone Quantification negative 25 ng/m L Gabapentin Quantification negative 1000 Pregabalin Quantification negative 400 Lamotrigine Quantification negative 50 ng/mL Ketamine Quantification negative 50 ng/mL Norketamine Quantification negative 50 ng/mL Naltrexone Quantification negative 10 ng/mL Naltrexol Quantification negative 10 ng/mL Naloxone Quantification negative 20 cZolpidem Quantification negative 10 ng/mL Carisoprodol Quantification negative 100 ng/mL Meprobamate Quantification negative 100 ng/mL Pentobarbital Quantification negative 200 ng/mL Phenobarbital Quantification negative 200 ng/mL Secobarbital Quantification negative 200 ng/mL Butalbital Quantification negative 200 ng/mL Amitriptyline Quantification negative 50 ng/mL Nortriptyline Quantification negative 50 ng/mL Imipramine Quantification negative 50 ng/mL Desipramine Quantification negative 50 ng/mL Cyclobenzaprine Quantification negative 50 ng/mL Dextromethorphan positive-> 1280 50 ng/mL Levorphanol / Dextrorphan Quantification positive-852. 682 50 ng/mL Phentermine Quantification negative 50 ng/mL Methamphetamine Quantification negative 100 ng/mL Cocaine metabolite Quantification negative 50 ng/m L cTHC (Marijuana metabolite) Quantification positive-26 9.694 15 ng/mL MDMA Quantification negative 100 ng/mL 6-WALTER (Heroin metabolite) Quantification negative 10 ng/mL Phencyclidine Quantification negative 10 ng/mL 4-ANPP Quantification Fen Neg 2 ng/mL Acetyl fentanyl Quantification Fen Neg 2 ng/mL Acetyl norfentanyl Quantification Fen Neg 5 ng/mL Acryl fentanyl Quantification Fen Neg 1 ng/mL Carfentanil Quantification Fen Neg 2 ng/mL Para-fluorofentanyl Quantification Fen Neg 1 ng/m L 2-methyl AP-237 Quantification negative 10 ng/mL Brorphine Quantification negative 15 ng/mL Metonitazene Quantification negative 5 ng/mL 8-aminoclonazolam Quantification negative 10 ng/mL Etizolam Quantification negative 10 ng/mL Alpha-hydroxyetizolam Quantification negative 10 n g/mL Flualprazolam Quantification negative 10 ng/mL Flubromazolam Quantification negative 10 ng/mL SMX354 metabolite Quantification negative 10 ng/mL FOH186 metabolite Quantification negative 10 ng/mL RCS4 metabolite Quantification negative 10 ng/mL XLR11/UR144 metabolite negative 10 ng/mL 5F-ADB-M7 negative 10 ng/mL IA-RIPYJJWB-T6 negative 10 ng/mL KFUF-VLKZCLHP-Y7 negative 10 ng/mL Eutylone Quantification negative 10 ng/mL Methylone Quantification negative 3 ng/mL Xylazine Quantification negative 10 ng/mL 4-hydroxy Xylazine Quantification negative 10 ng/m L Mitragynine (Kratom alkaloid ) Quantification negative 1 ng/mL 8-SD-Ppqdobqtvwp (Kratom alk aloid) Quantification negative 1 ng/mL ETHANOL negative 20 mg/dL mg/dL ETHYL GLUCURONIDE SCREEN negative 500 ng/mL Ethyl Glucuronide Quantification negative 500 ng/m L Ethyl Sulfate Quantification negative 500 ng/mL CREATININE (CHEMICAL) normal-160.1 >20 mg/dL mg/dL OXIDANT normal-0 <200 ug/mL ug/mL PH normal-5.2 4.5 - 9.5 SPECIFIC GRAVITY normal-1.027 1.003 - 1.035 [facility] Results (Not yet reviewed by provider) Interpretation: Performing Lab:[id number] [facility], [address] [address] [address] Angelika Garcia MD Notes/Report: 4-ANPP: Fentanyl Negative. Acetyl fentanyl: Fentanyl Negative. Acetyl norfenta nyl: Fentanyl Negative. Acryl fentanyl: Fentanyl Negative. Carfentanil: Fentany l Negative. Para-fluorofentanyl: Fentanyl Negative. Codeine Quantification negative 50 ng/mL Morphine Quantification negative 50 ng/mL Hydrocodone Quantification positive-24393.023 50 ng/mL Norhydrocodone Quantification positive-> 6400 50 ng/mL Hydromorphone Quantification positive-144.735 50 ng/mL Oxycodone Quantification negative 50 ng/mL Noroxycodone Quantification negative 50 ng/mL Oxymorphone Quantification negative 50 ng/mL Buprenorphine Quantification negative 5 ng/mL Norbuprenorphine Quantification negative 20 ng/mL Fentanyl Quantification negative 1 ng/mL Norfentanyl Quantification negative 8 ng/mL Methadone Quantification negative 100 ng/mL EDDP (Methadone metabolite) Quantification negative 100 ng/mL Tramadol Quantification negative 100 ng/mL L-aojdefnub-qorizmnu Quantification negative 100 n g/mL L-Ygfvmmkbw-Rjplibep Quantification negative 100 n g/mL Tapentadol Quantification negative 50 ng/mL Meperidine Quantification negative 50 ng/mL Normeperidine Quantification negative 50 ng/mL Alpha-Hydroxyalprazolam Quantification negative 20 ng/mL 4-Dnowf-Scmdbixrnl Quantification negative 20 ng/m L Lorazepam Quantification negative 40 ng/mL Nordiazepam Quantification negative 40 ng/mL Temazepam Quantification negative 50 ng/mL Oxazepam Quantification negative 40 ng/mL Amphetamine Quantification positive-> 86798 100 ng/mL Methylphenidate Quantification negative 50 ng/mL Ritalinic Acid Quantification negative 50 ng/mL Citalopram/Escitalopram Quantification negative 25 ng/mL N-Desmethylcitalopram Quantification negative 25 n g/mL Hydroxybupropion Quantification negative 50 ng/mL Duloxetine Quantification negative 25 ng/mL Fluoxetine Quantification positive-> 3200 25 ng/mL NorFluoxetine Quantification positive-> 3200 25 ng/mL Paroxetine Quantification negative 25 ng/mL Sertraline Quantification negative 10 ng/mL Trazodone Quantification positive-779.671 10 ng/mL Venlafaxine Quantification negative 100 ng/mL Desmethylvenlafaxine Quantification negative 100 n g/mL Aripipazole Quantification negative 5 ng/mL OPC-3373 Quantification negative 15 ng/mL Clozapine Quantification negative 25 ng/mL N-Desmethylclozapine Quantification negative 25 ng /mL Haloperidol Quantification negative 5 ng/mL Reduced Haloperidol Quantification negative 5 ng/m L Olanzapine Quantification negative 25 ng/mL Quetiapine Quantification negative 25 ng/mL Norquetiapine Quantification negative 25 ng/mL Risperidone Quantification negative 10 ng/mL Hydroxyrisperidone Quantification negative 25 ng/m L Gabapentin Quantification negative 1000 ng/mL Pregabalin Quantification negative 400 ng/mL Lamotrigine Quantification negative 50 ng/mL Ketamine Quantification negative 50 ng/mL Norketamine Quantification negative 50 ng/mL Naltrexone Quantification negative 10 ng/mL Naltrexol Quantification negative 10 ng/mL Naloxone Quantification negative 20 ng/mL cZolpidem Quantification negative 10 ng/mL Carisoprodol Quantification negative 100 ng/mL Meprobamate Quantification negative 100 ng/mL Pentobarbital Quantification negative 200 ng/mL Phenobarbital Quantification negative 200 ng/mL Secobarbital Quantification negative 200 ng/mL Butalbital Quantification negative 200 ng/mL Amitriptyline Quantification negative 50 ng/mL Nortriptyline Quantification negative 50 ng/mL Imipramine Quantification negative 50 ng/mL Desipramine Quantification negative 50 ng/mL Cyclobenzaprine Quantification negative 50 ng/mL Dextromethorphan positive-327.464 50 ng/mL Levorphanol / Dextrorphan Quantification positive-86.2 91 50 ng/mL Phentermine Quantification negative 50 ng/mL Methamphetamine Quantification negative 100 ng/mL Cocaine metabolite Quantification negative 50 ng/m L cTHC (Marijuana metabolite) Quantification positive-26 .909 15 ng/mL MDMA Quantification negative 100 ng/mL 6-WALTER (Heroin metabolite) Quantification negative 10 ng/mL Phencyclidine Quantification negative 10 ng/mL 4-ANPP Quantification Fen Neg 2 ng/mL Acetyl fentanyl Quantification Fen Neg 2 ng/mL Acetyl norfentanyl Quantification Fen Neg 5 ng/mL Acryl fentanyl Quantification Fen Neg 1 ng/mL Carfentanil Quantification Fen Neg 2 ng/mL Para-fluorofentanyl Quantification Fen Neg 1 ng/m L 2-methyl AP-237 Quantification negative 10 ng/mL Brorphine Quantification negative 15 ng/mL Metonitazene Quantification negative 5 ng/mL 8-aminoclonazolam Quantification negative 10 ng/mL Etizolam Quantification negative 10 ng/mL Alpha-hydroxyetizolam Quantification negative 10 n g/mL Flualprazolam Quantification negative 10 ng/mL Flubromazolam Quantification negative 10 ng/mL YRG371 metabolite Quantification negative 10 ng/mL CGL367 metabolite Quantification negative 10 ng/mL RCS4 metabolite Quantification negative 10 ng/mL XLR11/UR144 metabolite negative 10 ng/mL 5F-ADB-M7 negative 10 ng/mL YP-JPOEDAXY-I9 negative 10 ng/mL NVBL-XPCWECJV-M9 negative 10 ng/mL Eutylone Quantification negative 10 ng/mL Methylone Quantification negative 3 ng/mL Xylazine Quantification negative 10 ng/mL 4-hydroxy Xylazine Quantification negative 10 ng/m L Mitragynine (Kratom alkaloid ) Quantification negative 1 ng/mL 1-NR-Xjtwwfwpkft (Kratom alk aloid) Quantification negative 1 ng/mL ETHANOL negative 20 mg/dL mg/dL ETHYL GLUCURONIDE SCREEN negative 500 ng/mL Ethyl Glucuronide Quantification negative 500 ng/m L Ethyl Sulfate Quantification negative 500 ng/mL CREATININE normal-139.3 >20 mg/dL mg/dL OXIDANT normal-0 <200 ug/mL ug/mL PH normal-4.9 4.5 - 9.5 SPECIFIC GRAVITY normal-1.024 1.003 - 1.035 [facility] Results (Not yet reviewed by provider) Interpretation: Performing Lab:[id number] [employer], [id number] [address] [address] Angelika Garcia MD Notes/Report: Acetyl fentanyl: Fentanyl Negative. Acetyl norfentanyl: Fentanyl Negative. Acr yl fentanyl: Fentanyl Negative. Carfentanil: Fentanyl Negative. Para-fluorofent anyl: Fentanyl Negative. Codeine Quantification negative 50 ng/mL Morphine Quantification negative 50 ng/mL Hydrocodone Quantification positive-1146.886 50 ng/mL Norhydrocodone Quantification positive-960.162 50 ng/m L Hydromorphone Quantification negative 50 ng/mL Oxycodone Quantification negative 50 ng/mL Noroxycodone Quantification negative 50 ng/mL Oxymorphone Quantification negative 50 ng/mL Fentanyl Quantification negative 1 ng/mL Norfentanyl Quantification negative 8 ng/mL Methadone Quantification negative 100 ng/mL EDDP (Methadone metabolite) Quantification negative 100 ng/mL Tramadol Quantification negative 100 ng/mL T-tctlrzjiy-rgonjcha Quantification negative 100 n g/mL I-Rbybylhiw-Mvprndbc Quantification negative 100 n g/mL Alpha-Hydroxyalprazolam Quantification negative 20 ng/mL 7-Ojkyb-Ttrqbriayd Quantification negative 20 ng/m L Lorazepam Quantification positive-442.835 40 ng/mL Nordiazepam Quantification negative 40 ng/mL Temazepam Quantification negative 50 ng/mL Oxazepam Quantification negative 40 ng/mL Amphetamine Quantification positive-5860.195 100 ng/mL Methamphetamine Quantification negative 100 ng/mL Cocaine metabolite Quantification negative 50 ng/m L cTHC (Marijuana metabolite) Quantification positive-79 .153 15 ng/mL 6-WALTER (Heroin metabolite) Quantification negative 10 ng/mL Acetyl fentanyl Quantification Fen Neg 2 ng/mL Acetyl norfentanyl Quantification Fen Neg 5 ng/mL Acryl fentanyl Quantification Fen Neg 1 ng/mL Carfentanil Quantification Fen Neg 2 ng/mL Para-fluorofentanyl Quantification Fen Neg 1 ng/m L Mitragynine (Kratom alkaloid ) Quantification negative 1 ng/mL 5-UN-Quddvyqeazi (Kratom alk aloid) Quantification negative 1 ng/mL Ethyl Glucuronide Quantification positive-814.348 500 ng/mL Ethyl Sulfate Quantification negative 500 ng/mL [employer] Interactive Results (Not yet reviewed by provider) Interpretation: Performing Lab:[id number] [employer], [id number] [facility] [address] Angelika Garcia MD Notes/Report: Codeine negative 1 ng/mL Morphine negative 1 ng/mL Hydrocodone positive-120.252 1 ng/mL Norhydrocodone Quantification positive-8.450 2 ng/mL Hydromorphone negative 1 ng/mL Oxycodone negative 1 ng/mL Noroxycodone Quantification negative 2 ng/mL Oxymorphone negative 1 ng/mL Fentanyl Quantification negative 0.2 ng/mL Norfentanyl Quantification negative 1 ng/mL Methadone negative 2 ng/mL EDDP (Methadone metabolite) negative 2 ng/mL Tramadol Quantification negative 5 ng/mL B-Znoetmakp-Bhgvydjy Quantification negative 5 ng/ mL Alprazolam negative 1 ng/mL Clonazepam negative 1 ng/mL Clonazepam Metabolite Quantification negative 1 ng /mL Diazepam negative 1 ng/mL Nordiazepam negative 1 ng/mL Lorazepam negative 1 ng/mL Oxazepam negative 2 ng/mL Temazepam negative 1 ng/mL Amphetamine positive-81.746 5 ng/mL Methamphetamine negative 5 ng/mL Cocaine Quantification negative 2 ng/mL Cocaine Metabolite negative 2 ng/mL THC (Marijuana Component) negative 2 ng/mL 6-WALTER (Heroin metabolite) Quantification negative 1 ng/mL REASON FOR REFERRAL No Information MEDICATIONS Medication SIG (Take, Route, Frequency, Duration) Notes Start Date End Date Status traZODone HCl 100 MG 1 tablet at bedtime Oral Once a day Active Lidocaine-Prilocaine 2.5-2.5 % as directed External Active amLODIPine Besylate 5 MG 1 tablet Oral Once a day Active Metoprolol Succinate ER 25 MG TAKE 1 TABLET BY MOUTH EVERY DAY Oral for 90 Active ZyPREXA 5 MG 1 tablet Orally Once a day Active hydrOXYzine HCl 25 MG TAKE 1 TABLET BY M OUTH THREE TIMES A DAY NEEDED FOR ANXIETY Oral for 10 Active Vitamin D3 1000 UNIT 1 capsule Orally On a day 09/25/2017 Active Amphetamine-Dextroamphetam ine 20 MG TAKE 1 TABLET BY MOUTH EVERY DAY Oral for 30 Active FLUoxetine HCl 40 MG 1 capsule Oral Once a day Active rOPINIRole HCl 0.5 MG 1 tablet 1 to 3 ho urs before bedtime Orally Once a day Active [employer]S D3 50 MCG (2000 UT) TAKE 1 CAPSULE B Y MOUTH EVERY DAY Oral for 90 Active HYDROcodone-Acetaminophen 10-325 MG 1 tablet Orally every 4 to 6 hrs as needed for severe pain (max 5x/day) for 30 days 03/06/2024 Active Losartan Potassium 25 MG 1 tablet Oral Once a day Active Fluticasone Propionate 50 MCG/ACT 1 spray in each nostril Nasal Twice a day Active tiZANidine HCl 4 MG 1 tablet as needed O ral 3 x day muscle spasm for 30 days 12/13/2019 Active ProAir HFA 108 (90 Base) MCG/ACT 2 puffs as needed Inhalation every 6 hrs 09/25/2017 Active Narcan 4 MG/0.1ML 1 actuation in one n ostril x1, Nasally 2-3 minutes as needed until the patient is responsive or EMS arrives Active Omeprazole 20 MG 1 capsule 30 minutes before morning meal Oral Once a day Active Ferrous Sulfate 325 (65 Fe) MG 325 MG ORALLY TWICE A DAY Oral for 90 Active Voltaren 1 % apply 4 grams to ji nful joint(s) Transdermal 4x/day as needed for pain for 30 days Active SOCIAL HISTORY Tobacco Use: Social History Observation Description Date Details (start date - stop date) Former Smoker NA - NA Sex Assigned At : Social History Observation Description Sex Assigned At Unknown Tobacco Use/Smoking Question Answer Notes Are you a former smoker How long has it been since you last smoked? > 10 years Alcohol Screen (Audit-C) Question Answer Notes Did you have a drink containing alcohol in the p ast year? No Points 0 Interpretation Negative PROBLEMS Problem Type ICD Code Onset Dates Problem Status W/U Status Risk SNOMED Code Notes Problem Fear of injections and transfusions (F40.231) Active confirmed Fear of medical treatment (064043954) Problem Brachial plexus disorders (G54.0) Active confirmed Brachial p cassandra disorder (8004689) Problem Chronic pain syndrome (G89.4) Active confirmed Chronic ji n syndrome (158485536) Problem Unilateral primary osteoarthritis, left knee (M17.12) Active confirmed Osteoarth ritis of knee (291902814) Problem Unspecified osteoarthritis, unspecified site (M19.90) Active confirmed Osteoarthritis (456212868) Problem Pain in right shoulder (M25.511) Active confirmed Pain of r ight shoulder region (finding) (2517094588) Problem Pain in left shoulder (M25.512) Active confirmed Shoulder joint pain (708490859) Problem Sacroiliitis, not elsewhere classified (M46.1) Active confirmed Solitary sacroiliitis (163790892) Problem Spondylosis without myelopathy or radiculopathy, lumbar region (M47.816) Active confirmed Lumbosacral spondylosis without myelopathy (35143242) Problem Spondylosis without myelopathy or radiculopathy, lumbosacral region (M47.817) Active confirmed Lumbosacral spondylosis without myelopathy (disorder) (28206934) Problem Intervertebral disc disorders with radiculopathy, lumbar 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) Active confirmed Radiculopathy due to lumbar intervertebral disc disorder (653940290222950 ) L4-5 HNP Problem Other intervertebral disc degeneration, 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 confirmed Degeneration of lumbar intervertebral disc (61590752) Problem Radiculopathy, lumbar region (M54.16) Active confirmed Lumbar radiculopathy (521440827) Problem Postlaminectomy syndrome, not elsewhere classified (M96.1) Active confirmed Post-lami nectomy syndrome (19463536) Problem Osseous stenosis of neural canal 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) Active confirmed Spinal stenosis of lumbar region (45239877) Problem Intervertebral disc stenosis of neural canal of lumbar region (M99.53) Active confirmed Spinal stenosis of lumbar region (42057070) Problem senior living (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 of anticoagulants (Z79.01) Active confirmed Long-term current use of anticoagulant (082197605) Problem senior living (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 of 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 (Z79.891) Active confirmed High risk drug monitoring status (020342131) Problem Myalgia, other site (M79.18) Active confirmed Muscle pain (52426263) VITAL SIGNS Heart Rate 76 /min 03/06/2024 Respiratory Rate 18 /min 03/06/2024 Oximetry 99 % 09/06/2023 Post procedure vitals BP 166/97 HR 80 R 18 SpO2 99%. Pt discharged to home ambulatory with steady gait, no sign of acute distress. Blood pressure diastolic 92 mm Hg 03/06/2024 Height 60 in 03/06/2024 Blood pressure systolic 166 mm Hg 03/06/2024 Weight 138 lbs 03/06/2024 BMI 26.95 kg/m2 03/06/2024 Encounters Encounter Location Date Provider Diagnosis [facility] [address] [place] [phone] 04/06/2023 Feng Hendrickson Radiculopathy, lumba r region M54.16 ; Spondylosis without myelopathy or radiculopathy, lumbar region M47.816 ; Sacroiliitis, not elsewhere classified M46.1 ; Postlaminectomy syndrome, not elsewhere classified M96.1 ; Other intervertebral disc degeneration, lumbar region M51.36 ; Osseous stenosis of neural canal of lumbar region M99.33 ; 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 [facility] [address] [place] [phone] 04/14/2023 Feng Stynowick Radiculopathy, lumba r region M54.16 [facility] [address] [place] [phone] 05/02/2023 Feng Stynowick Radiculopathy, lumba r region M54.16 ; Spondylosis without myelopathy or radiculopathy, lumbar region M47.816 ; Sacroiliitis, not elsewhere classified M46.1 ; Postlaminectomy syndrome, not elsewhere classified M96.1 ; Other intervertebral disc degeneration, lumbar region M51.36 ; Osseous stenosis of neural canal of lumbar region M99.33 ; 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 [facility] [address] [place] [address] 05/31/2023 Feng Stynowick Radiculopathy, lumba r region M54.16 ; Sacroiliitis, not elsewhere classified M46.1 ; Spondylosis without myelopathy or radiculopathy, lumbar region M47.816 ; Postlaminectomy syndrome, not elsewhere classified M96.1 ; Other intervertebral disc degeneration, lumbar region M51.36 ; Osseous stenosis of neural canal of lumbar region M99.33 ; 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 [facility] [address] [place] [phone] 06/05/2023 Feng Stynowick Sacroiliitis, not elsewhere classified M46.1 [facility] [address] [place] [phone] 06/30/2023 Feng Stynowick Radiculopathy, lumba r region M54.16 ; Sacroiliitis, not elsewhere classified M46.1 ; Spondylosis without myelopathy or radiculopathy, lumbar region M47.816 ; Postlaminectomy syndrome, not elsewhere classified M96.1 ; Other intervertebral disc degeneration, lumbar region M51.36 ; Osseous stenosis of neural canal of lumbar region M99.33 ; 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 and senior living (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 of 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 Z79.891 [facility] [address] [place] [address] [place] [address] 07/11/2023 Feng Stynowick Radiculopathy, lumba r region M54.16 [facility] [address] [place] [address] [place] [phone] 07/18/2023 Feng Stynowick [facility] [address] [place] [address], [place] [address] 07/24/2023 Feng Stynowick Radiculopathy, lumba r region M54.16 ; Other intervertebral disc degeneration, lumbar region M51.36 and Osseous stenosis of neural canal of lumbar region M99.33 [facility] [address] [place] [address] [place] [address] 07/31/2023 Feng Stynowick Radiculopathy, lumba r region M54.16 ; Sacroiliitis, not elsewhere classified M46.1 ; Spondylosis without myelopathy or radiculopathy, lumbar region M47.816 ; Postlaminectomy syndrome, not elsewhere classified M96.1 ; Other intervertebral disc degeneration, lumbar region M51.36 ; Osseous stenosis of neural canal of lumbar region M99.33 ; 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 and senior living (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 of 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 Z79.891 [facility] [address] [place] [address] [place] [address] 08/28/2023 Feng Stynowick Radiculopathy, lumba r region M54.16 ; Spondylosis without myelopathy or radiculopathy, lumbar region M47.816 ; Sacroiliitis, not elsewhere classified M46.1 ; Postlaminectomy syndrome, not elsewhere classified M96.1 ; Other intervertebral disc degeneration, lumbar region M51.36 ; Osseous stenosis of neural canal of lumbar region M99.33 ; 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 and senior living (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 of 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 Z79.891 [facility] [address] [place] [address], [place] [address] 09/06/2023 Feng Stynowick Spondylosis without myelopathy or radiculopathy, lumbar region M47.816 and Spondylosis without myelopathy or radiculopathy, lumbosacral region M47.817 [facility] [address] [place] [address], [place] [address] 09/07/2023 Feng Stynowick [facility] [address] [place] [address] [place] [address] 09/27/2023 Feng Stynowick Radiculopathy, lumba r region M54.16 ; Spondylosis without myelopathy or radiculopathy, lumbar region M47.816 ; Sacroiliitis, not elsewhere classified M46.1 ; Postlaminectomy syndrome, not elsewhere classified M96.1 ; Other intervertebral disc degeneration, lumbar region M51.36 ; Osseous stenosis of neural canal of lumbar region M99.33 ; 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 and senior living (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 of 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 Z79.891 [facility] [address] [place] [phone] 10/04/2023 Feng Stynowick [facility] [address] [place] [address] 10/24/2023 Feng Stynowick Radiculopathy, lumba r region M54.16 [facility] [address] [place] [phone] 10/24/2023 Feng Stynowick Radiculopathy, lumba r region M54.16 ; Spondylosis without myelopathy or radiculopathy, lumbar region M47.816 ; Sacroiliitis, not elsewhere classified M46.1 ; Postlaminectomy syndrome, not elsewhere classified M96.1 ; Other intervertebral disc degeneration, lumbar region M51.36 ; Osseous stenosis of neural canal of lumbar region M99.33 ; 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 and senior living (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 of 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 Z79.891 [facility] [address] [place] [phone] 10/26/2023 Feng Stynowick Radiculopathy, lumba r region M54.16 [facility] [address] [place] [address] 10/30/2023 Feng Stynowick Radiculopathy, lumba r region M54.16 ; Spondylosis without myelopathy or radiculopathy, lumbar region M47.816 ; Sacroiliitis, not elsewhere classified M46.1 ; Postlaminectomy syndrome, not elsewhere classified M96.1 ; Other intervertebral disc degeneration, lumbar region M51.36 ; Osseous stenosis of neural canal of lumbar region M99.33 ; 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 [facility] [address] [place] [phone] 11/06/2023 Feng Stynowick Radiculopathy, lumba r region M54.16 ; Intervertebral disc disorders with radiculopathy, lumbar region M51.16 and Osseous stenosis of neural canal of lumbar region M99.33 [facility] [address] [place] [address] 11/29/2023 Feng Stynowick Radiculopathy, lumba r region M54.16 ; Spondylosis without myelopathy or radiculopathy, lumbar region M47.816 ; Sacroiliitis, not elsewhere classified M46.1 ; Postlaminectomy syndrome, not elsewhere classified M96.1 ; Other intervertebral disc degeneration, lumbar region M51.36 ; Osseous stenosis of neural canal of lumbar region M99.33 ; 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 [facility] [address] [place] [phone] 12/19/2023 Feng Stynowick Radiculopathy, lumba r region M54.16 [facility] [address] [place] [phone] 12/27/2023 Feng Stynowick Radiculopathy, lumba r region M54.16 ; Sacroiliitis, not elsewhere classified M46.1 ; Spondylosis without myelopathy or radiculopathy, lumbar region M47.816 ; Postlaminectomy syndrome, not elsewhere classified M96.1 ; Other intervertebral disc degeneration, lumbar region M51.36 ; Osseous stenosis of neural canal of lumbar region M99.33 ; 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 and senior living (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 of 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 Z79.891 [facility] [address] [place] [address] [place] [address] 01/02/2024 Feng Stynowick Sacroiliitis, not elsewhere classified M46.1 [facility] [address] [place] [phone] 01/25/2024 Feng Stynowick Radiculopathy, lumba r region M54.16 ; Sacroiliitis, not elsewhere classified M46.1 ; Spondylosis without myelopathy or radiculopathy, lumbar region M47.816 ; Postlaminectomy syndrome, not elsewhere classified M96.1 ; Other intervertebral disc degeneration, lumbar region M51.36 ; Osseous stenosis of neural canal of lumbar region M99.33 ; 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 and senior living (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 of 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 Z79.891 [facility] [address] [place] [phone] 01/29/2024 Feng Stynowick Radiculopathy, lumba r region M54.16 ; Sacroiliitis, not elsewhere classified M46.1 ; Spondylosis without myelopathy or radiculopathy, lumbar region M47.816 ; Postlaminectomy syndrome, not elsewhere classified M96.1 ; Other intervertebral disc degeneration, lumbar region M51.36 ; Osseous stenosis of neural canal of lumbar region M99.33 ; 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 and senior living (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 of 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 Z79.891 [facility] [address] [place] [phone] 01/29/2024 Feng Stynowick Radiculopathy, lumba r region M54.16 [facility] [address] [place] [phone] 02/06/2024 Feng Stynowick Radiculopathy, lumba r region M54.16 ; Sacroiliitis, not elsewhere classified M46.1 ; Spondylosis without myelopathy or radiculopathy, lumbar region M47.816 ; Postlaminectomy syndrome, not elsewhere classified M96.1 ; Other intervertebral disc degeneration, lumbar region M51.36 ; Osseous stenosis of neural canal of lumbar region M99.33 ; 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 [facility] [address] [facility] [place] [address] 02/16/2024 Feng Stynowick Radiculopathy, lumba r region M54.16 ; Intervertebral disc disorders with radiculopathy, lumbar region M51.16 and Osseous stenosis of neural canal of lumbar region M99.33 [facility] [address] [facility] [place] [address] 02/19/2024 Feng Stynowick Radiculopathy, lumba r region M54.16 [facility] [address] [facility] [place] [address] 03/06/2024 Feng Stynowick Radiculopathy, lumba r region M54.16 ; Spondylosis without myelopathy or radiculopathy, lumbar region M47.816 ; Sacroiliitis, not elsewhere classified M46.1 ; Postlaminectomy syndrome, not elsewhere classified M96.1 ; Other intervertebral disc degeneration, lumbar region M51.36 ; Osseous stenosis of neural canal of lumbar region M99.33 ; 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 The risks of this procedure including pain, bleeding, infection, spinal headache, persistent spinal fluid leak, epidural hematoma, nerve damage, spinal cord injury, paralysis, total spinal anesthesia resulting in cardiopulmonary arrest/, respiratory distress requiring intubation, insomnia, hyperglycemia, hair loss, muscle atrophy, skin depigmentation, weight gain, fluid retention, adrenal suppression, immunosuppression, osteoporosis resulting in fractures, avascular necrosis of the hip, cataracts, bleeding gastric ulcer, worsening pain and failure to relieve pain were discussed and the patient is agreeable to proceeding at this time. The side effects of opioid analgesics including sedation, constipation potentially resulting in bowel obstruction, respiratory depression, tolerance, addiction, hyperalgesia, withdrawal after abrupt discontinuation, immunosuppression and endocrine abnormalities such as hypocortisolism and hypogonadism resulting in sexual dysfunction which may become permanent were discussed and the patient expressed an understanding of the above. The patient was advised to avoid driving, climbing ladders and operating dangerous machinery after taking this medication. The patient was advised to avoid consuming alcohol, illicit drugs and sedative/hypnotic drugs in conjunction with this medication due to the risk of profound respiratory depression and . The patient was directed to utilize the lowest effective dose possible. The importance of safe storage and keeping opioid medications locked up at all times in order to prevent theft and unintended consumption by friends, relatives or anyone else was discussed with the patient at length. The patient agrees to fully comply with the above. The [place] and [place] PDMP were reviewed and were appropriate 04/06/2023 Spondylosis without myelopathy or radiculopathy, lumbar region (ICD-10 - M47.816) 04/14/2023 Radiculopathy, lumbar region (ICD-10 - M54.16) 05/02/2023 Radiculopathy, lumbar region (ICD-10 - M54.16) The side effects of opioid analgesics including sedation, constipation potentially resulting in bowel obstruction, respiratory depression, tolerance, addiction, hyperalgesia, withdrawal after abrupt discontinuation, immunosuppression and endocrine abnormalities such as hypocortisolism and hypogonadism resulting in sexual dysfunction which may become permanent were discussed and the patient expressed an understanding of the above. The patient was advised to avoid driving, climbing ladders and operating dangerous machinery after taking this medication. The patient was advised to avoid consuming alcohol, illicit drugs and sedative/hypnotic drugs in conjunction with this medication due to the risk of profound respiratory depression and . The patient was directed to utilize the lowest effective dose possible. The importance of safe storage and keeping opioid medications locked up at all times in order to prevent theft and unintended consumption by friends, relatives or anyone else was discussed with the patient at length. The patient agrees to fully comply with the above. The [place] PDMP were reviewed and were appropriate 05/02/2023 Spondylosis without myelopathy or radiculopathy, lumbar region (ICD-10 - M47.816) 05/31/2023 Radiculopathy, lumbar region (ICD-10 - M54.16) The side effects of opioid analgesics including sedation, constipation potentially resulting in bowel obstruction, respiratory depression, tolerance, addiction, hyperalgesia, withdrawal after abrupt discontinuation, immunosuppression and endocrine abnormalities such as hypocortisolism and hypogonadism resulting in sexual dysfunction which may become permanent were discussed and the patient expressed an understanding of the above. The patient was advised to avoid driving, climbing ladders and operating dangerous machinery after taking this medication. The patient was advised to avoid consuming alcohol, illicit drugs and sedative/hypnotic drugs in conjunction with this medication due to the risk of profound respiratory depression and . The patient was directed to utilize the lowest effective dose possible. The importance of safe storage and keeping opioid medications locked up at all times in order to prevent theft and unintended consumption by friends, relatives or anyone else was discussed with the patient at length. The patient agrees to fully comply with the above. The [place] PDMP were reviewed and were appropriate 05/31/2023 Sacroiliitis, not elsewhere classified (ICD-10 - M46.1) schedule a bilateral sacroiliac joint injection. The risks of this procedure including pain, bleeding, infection, insomnia, hyperglycemia, hair loss, muscle atrophy, skin depigmentation, weight gain, fluid retention, adrenal suppression, immunosuppression, osteoporosis resulting in fractures, avascular necrosis of the hip, cataracts, bleeding gastric ulcer, worsening pain and failure to relieve pain were discussed and the patient is agreeable to proceeding at this time. 06/05/2023 Sacroiliitis, not elsewhere classified (ICD-10 - M46.1) 06/30/2023 Radiculopathy, lumbar region (ICD-10 - M54.16) Schedule a bilateral L4-5 transforaminal epidural steroid injection. The risks of this procedure including pain, bleeding, infection, spinal headache, persistent spinal fluid leak, epidural hematoma, nerve damage, spinal cord injury, paralysis, total spinal anesthesia resulting in cardiopulmonary arrest/, respiratory distress requiring intubation, insomnia, hyperglycemia, hair loss, muscle atrophy, skin depigmentation, weight gain, fluid retention, adrenal suppression, immunosuppression, osteoporosis resulting in fractures, avascular necrosis of the hip, cataracts, bleeding gastric ulcer, worsening pain and failure to relieve pain were discussed and the patient is agreeable to proceeding at this time. The side effects of opioid analgesics including sedation, constipation potentially resulting in bowel obstruction, respiratory depression, tolerance, addiction, hyperalgesia, withdrawal after abrupt discontinuation, immunosuppression and endocrine abnormalities such as hypocortisolism and hypogonadism resulting in sexual dysfunction which may become permanent were discussed and the patient expressed an understanding of the above. The patient was advised to avoid driving, climbing ladders and operating dangerous machinery after taking this medication. The patient was advised to avoid consuming alcohol, illicit drugs and sedative/hypnotic drugs in conjunction with this medication due to the risk of profound respiratory depression and . The patient was directed to utilize the lowest effective dose possible. The importance of safe storage and keeping opioid medications locked up at all times in order to prevent theft and unintended consumption by friends, relatives or anyone else was discussed with the patient at length. The patient agrees to fully comply with the above. The [facility] PDMP were reviewed and were appropriate 07/11/2023 Radiculopathy, lumbar region (ICD-10 - M54.16) 07/24/2023 Other intervertebral disc degeneration, lumbar region (ICD-10 - M51.36) 07/24/2023 Radiculopathy, lumbar region (ICD-10 - M54.16) 06/30/2023 Sacroiliitis, not elsewhere classified (ICD-10 - M46.1) 07/31/2023 Sacroiliitis, not elsewhere classified (ICD-10 - M46.1) 07/31/2023 Radiculopathy, lumbar region (ICD-10 - M54.16) The side effects of opioid analgesics including sedation, constipation potentially resulting in bowel obstruction, respiratory depression, tolerance, addiction, hyperalgesia, withdrawal after abrupt discontinuation, immunosuppression and endocrine abnormalities such as hypocortisolism and hypogonadism resulting in sexual dysfunction which may become permanent were discussed and the patient expressed an understanding of the above. The patient was advised to avoid driving, climbing ladders and operating dangerous machinery after taking this medication. The patient was advised to avoid consuming alcohol, illicit drugs and sedative/hypnotic drugs in conjunction with this medication due to the risk of profound respiratory depression and . The patient was directed to utilize the lowest effective dose possible. The importance of safe storage and keeping opioid medications locked up at all times in order to prevent theft and unintended consumption by friends, relatives or anyone else was discussed with the patient at length. The patient agrees to fully comply with the above. The [facility] PDMP were reviewed and were appropriate 08/28/2023 Spondylosis without myelopathy or radiculopathy, lumbar region (ICD-10 - M47.816) Schedule a bilateral L3-5 radiofrequency ablation for a more durable treatment of the patient's facet-generated low back pain originating from the L4-5 and L5-S1 facet joints. The risks of this procedure including pain, bleeding, infection, nerve damage, spinal cord injury, paralysis, total spinal anesthesia resulting in cardiopulmonary arrest/, respiratory distress requiring intubation, neuritis after radiofrequency ablation, hyperglycemia, insomnia, hair loss, muscle atrophy, skin depigmentation, weight gain, fluid retention, adrenal suppression, osteoporosis resulting in fractures, avascular necrosis of the hip, cataracts, bleeding gastric ulcer, worsening pain and failure to relieve pain were discussed and the patient is agreeable to proceeding at this time. 08/28/2023 Radiculopathy, lumbar region (ICD-10 - M54.16) The side effects of opioid analgesics including sedation, constipation potentially resulting in bowel obstruction, respiratory depression, tolerance, addiction, hyperalgesia, withdrawal after abrupt discontinuation, immunosuppression and endocrine abnormalities such as hypocortisolism and hypogonadism resulting in sexual dysfunction which may become permanent were discussed and the patient expressed an understanding of the above. The patient was advised to avoid driving, climbing ladders and operating dangerous machinery after taking this medication. The patient was advised to avoid consuming alcohol, illicit drugs and sedative/hypnotic drugs in conjunction with this medication due to the risk of profound respiratory depression and . The patient was directed to utilize the lowest effective dose possible. The importance of safe storage and keeping opioid medications locked up at all times in order to prevent theft and unintended consumption by friends, relatives or anyone else was discussed with the patient at length. The patient agrees to fully comply with the above. The [place] PDMP were reviewed and were appropriate 09/06/2023 Spondylosis without myelopathy or radiculopathy, lumbar region (ICD-10 - M47.816) 09/06/2023 Spondylosis without myelopathy or radiculopathy, 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) 09/27/2023 Spondylosis without myelopathy or radiculopathy, lumbar region (ICD-10 - M47.816) 09/27/2023 Radiculopathy, lumbar region (ICD-10 - M54.16) The side effects of opioid analgesics including sedation, constipation potentially resulting in bowel obstruction, respiratory depression, tolerance, addiction, hyperalgesia, withdrawal after abrupt discontinuation, immunosuppression and endocrine abnormalities such as hypocortisolism and hypogonadism resulting in sexual dysfunction which may become permanent were discussed and the patient expressed an understanding of the above. The patient was advised to avoid driving, climbing ladders and operating dangerous machinery after taking this medication. The patient was advised to avoid consuming alcohol, illicit drugs and sedative/hypnotic drugs in conjunction with this medication due to the risk of profound respiratory depression and . The patient was directed to utilize the lowest effective dose possible. The importance of safe storage and keeping opioid medications locked up at all times in order to prevent theft and unintended consumption by friends, relatives or anyone else was discussed with the patient at length. The patient agrees to fully comply with the above. The [facility] PDMP were reviewed and were appropriate 10/24/2023 Radiculopathy, lumbar region (ICD-10 - M54.16) 10/24/2023 Radiculopathy, lumbar region (ICD-10 - M54.16) The side effects of opioid analgesics including sedation, constipation potentially resulting in bowel obstruction, respiratory depression, tolerance, addiction, hyperalgesia, withdrawal after abrupt discontinuation, immunosuppression and endocrine abnormalities such as hypocortisolism and hypogonadism resulting in sexual dysfunction which may become permanent were discussed and the patient expressed an understanding of the above. The patient was advised to avoid driving, climbing ladders and operating dangerous machinery after taking this medication. The patient was advised to avoid consuming alcohol, illicit drugs and sedative/hypnotic drugs in conjunction with this medication due to the risk of profound respiratory depression and . The patient was directed to utilize the lowest effective dose possible. The importance of safe storage and keeping opioid medications locked up at all times in order to prevent theft and unintended consumption by friends, relatives or anyone else was discussed with the patient at length. The patient agrees to fully comply with the above. The [facility] PDMP were reviewed and were appropriate 10/26/2023 Radiculopathy, lumbar region (ICD-10 - M54.16) 10/30/2023 Radiculopathy, lumbar region (ICD-10 - M54.16) Schedule a bilateral L4-5 transforaminal epidural steroid injection. The risks of this procedure including pain, bleeding, infection, spinal headache, persistent spinal fluid leak, epidural hematoma, nerve damage, spinal cord injury, paralysis, total spinal anesthesia resulting in cardiopulmonary arrest/, respiratory distress requiring intubation, insomnia, hyperglycemia, hair loss, muscle atrophy, skin depigmentation, weight gain, fluid retention, adrenal suppression, immunosuppression, osteoporosis resulting in fractures, avascular necrosis of the hip, cataracts, bleeding gastric ulcer, worsening pain and failure to relieve pain were discussed and the patient is agreeable to proceeding at this time. The side effects of opioid analgesics including sedation, constipation potentially resulting in bowel obstruction, respiratory depression, tolerance, addiction, hyperalgesia, withdrawal after abrupt discontinuation, immunosuppression and endocrine abnormalities such as hypocortisolism and hypogonadism resulting in sexual dysfunction which may become permanent were discussed and the patient expressed an understanding of the above. The patient was advised to avoid driving, climbing ladders and operating dangerous machinery after taking this medication. The patient was advised to avoid consuming alcohol, illicit drugs and sedative/hypnotic drugs in conjunction with this medication due to the risk of profound respiratory depression and . The patient was directed to utilize the lowest effective dose possible. The importance of safe storage and keeping opioid medications locked up at all times in order to prevent theft and unintended consumption by friends, relatives or anyone else was discussed with the patient at length. The patient agrees to fully comply with the above. 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 The patient was advised to avoid driving, climbing ladders and operating dangerous machinery after taking this medication. The patient was advised to avoid consuming alcohol, illicit drugs and sedative/hypnotic drugs in conjunction with this medication due to the risk of profound respiratory depression and . The patient was directed to utilize the lowest effective dose possible. The importance of safe storage and keeping opioid medications locked up at all times in order to prevent theft and unintended consumption by friends, relatives or anyone else was discussed with the patient at length. The patient agrees to fully comply with the above. The [facility] PDMP were reviewed and were appropriate 12/19/2023 Radiculopathy, lumbar region (ICD-10 - M54.16) 12/27/2023 Sacroiliitis, not elsewhere classified (ICD-10 - M46.1) schedule a bilateral sacroiliac joint injection. The risks of this procedure including pain, bleeding, infection, insomnia, hyperglycemia, hair loss, muscle atrophy, skin depigmentation, weight gain, fluid retention, adrenal suppression, immunosuppression, osteoporosis resulting in fractures, avascular necrosis of the hip, cataracts, bleeding gastric ulcer, worsening pain and failure to relieve pain were discussed and the patient is agreeable to proceeding at this time. 12/27/2023 Radiculopathy, lumbar region (ICD-10 - M54.16) The side effects of opioid analgesics including sedation, constipation potentially resulting in bowel obstruction, respiratory depression, tolerance, addiction, hyperalgesia, withdrawal after abrupt discontinuation, immunosuppression and endocrine abnormalities such as hypocortisolism and hypogonadism resulting in sexual dysfunction which may become permanent were discussed and the patient expressed an understanding of the above. The patient was advised to avoid driving, climbing ladders and operating dangerous machinery after taking this medication. The patient was advised to avoid consuming alcohol, illicit drugs and sedative/hypnotic drugs in conjunction with this medication due to the risk of profound respiratory depression and . The patient was directed to utilize the lowest effective dose possible. The importance of safe storage and keeping opioid medications locked up at all times in order to prevent theft and unintended consumption by friends, relatives or anyone else was discussed with the patient at length. The patient agrees to fully comply with the above. The [place] and [place] PDMP were reviewed and were appropriate 01/02/2024 Sacroiliitis, not elsewhere classified (ICD-10 - M46.1) 01/25/2024 Radiculopathy, lumbar region (ICD-10 - M54.16) The side effects of opioid analgesics including sedation, constipation potentially resulting in bowel obstruction, respiratory depression, tolerance, addiction, hyperalgesia, withdrawal after abrupt discontinuation, immunosuppression and endocrine abnormalities such as hypocortisolism and hypogonadism resulting in sexual dysfunction which may become permanent were discussed and the patient expressed an understanding of the above. The patient was advised to avoid driving, climbing ladders and operating dangerous machinery after taking this medication. The patient was advised to avoid consuming alcohol, illicit drugs and sedative/hypnotic drugs in conjunction with this medication due to the risk of profound respiratory depression and . The patient was directed to utilize the lowest effective dose possible. The importance of safe storage and keeping opioid medications locked up at all times in order to prevent theft and unintended consumption by friends, relatives or anyone else was discussed with the patient at length. The patient agrees to fully comply with the above. The [facility] PDMP were reviewed and were appropriate 01/29/2024 Radiculopathy, lumbar region (ICD-10 - M54.16) The side effects of opioid analgesics including sedation, constipation potentially resulting in bowel obstruction, respiratory depression, tolerance, addiction, hyperalgesia, withdrawal after abrupt discontinuation, immunosuppression and endocrine abnormalities such as hypocortisolism and hypogonadism resulting in sexual dysfunction which may become permanent were discussed and the patient expressed an understanding of the above. The patient was advised to avoid driving, climbing ladders and operating dangerous machinery after taking this medication. The patient was advised to avoid consuming alcohol, illicit drugs and sedative/hypnotic drugs in conjunction with this medication due to the risk of profound respiratory depression and . The patient was directed to utilize the lowest effective dose possible. The importance of safe storage and keeping opioid medications locked up at all times in order to prevent theft and unintended consumption by friends, relatives or anyone else was discussed with the patient at length. The patient agrees to fully comply with the above. The [facility] PDMP were reviewed and were appropriate 01/29/2024 Radiculopathy, lumbar region (ICD-10 - M54.16) 02/06/2024 Sacroiliitis, not elsewhere classified (ICD-10 - M46.1) 02/06/2024 Radiculopathy, lumbar region (ICD-10 - M54.16) Schedule a bilateral L4-5 transforaminal epidural steroid injection. The risks of this procedure including pain, bleeding, infection, spinal headache, persistent spinal fluid leak, epidural hematoma, nerve damage, spinal cord injury, paralysis, total spinal anesthesia resulting in cardiopulmonary arrest/, respiratory distress requiring intubation, insomnia, hyperglycemia, hair loss, muscle atrophy, skin depigmentation, weight gain, fluid retention, adrenal suppression, immunosuppression, osteoporosis resulting in fractures, avascular necrosis of the hip, cataracts, bleeding gastric ulcer, worsening pain and failure to relieve pain were discussed and the patient is agreeable to proceeding at this time. The side effects of opioid analgesics including sedation, constipation potentially resulting in bowel obstruction, respiratory depression, tolerance, addiction, hyperalgesia, withdrawal after abrupt discontinuation, immunosuppression and endocrine abnormalities such as hypocortisolism and hypogonadism resulting in sexual dysfunction which may become permanent were discussed and the patient expressed an understanding of the above. The patient was advised to avoid driving, climbing ladders and operating dangerous machinery after taking this medication. The patient was advised to avoid consuming alcohol, illicit drugs and sedative/hypnotic drugs in conjunction with this medication due to the risk of profound respiratory depression and . The patient was directed to utilize the lowest effective dose possible. The importance of safe storage and keeping opioid medications locked up at all times in order to prevent theft and unintended consumption by friends, relatives or anyone else was discussed with the patient at length. The patient agrees to fully comply with the above. 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-5 HNP 02/16/2024 Radiculopathy, lumbar region (ICD-10 - M54.16) 02/19/2024 Radiculopathy, lumbar region (ICD-10 - M54.16) 03/06/2024 Radiculopathy, lumbar region (ICD-10 - M54.16) The side effects of opioid analgesics including sedation, constipation potentially resulting in bowel obstruction, respiratory depression, tolerance, addiction, hyperalgesia, withdrawal after abrupt discontinuation, immunosuppression and endocrine abnormalities such as hypocortisolism and hypogonadism resulting in sexual dysfunction which may become permanent were discussed and the patient expressed an understanding of the above. The patient was advised to avoid driving, climbing ladders and operating dangerous machinery after taking this medication. The patient was advised to avoid consuming alcohol, illicit drugs and sedative/hypnotic drugs in conjunction with this medication due to the risk of profound respiratory depression and . The patient was directed to utilize the lowest effective dose possible. The importance of safe storage and keeping opioid medications locked up at all times in order to prevent theft and unintended consumption by friends, relatives or anyone else was discussed with the patient at length. The patient agrees to fully comply with the above. The [place] and [place] PDMP were reviewed and were appropriate 03/06/2024 Spondylosis without myelopathy or radiculopathy, lumbar region (ICD-10 - M47.816) Schedule a bilateral L3-5 radiofrequency ablation for a more durable treatment of the patient's facet-generated low back pain originating from the L4-5 and L5-S1 facet joints. The risks of this procedure including pain, bleeding, infection, nerve damage, spinal cord injury, paralysis, total spinal anesthesia resulting in cardiopulmonary arrest/, respiratory distress requiring intubation, neuritis after radiofrequency ablation, hyperglycemia, insomnia, hair loss, muscle atrophy, skin depigmentation, weight gain, fluid retention, adrenal suppression, osteoporosis resulting in fractures, avascular necrosis of the hip, cataracts, bleeding gastric ulcer, worsening pain and failure to relieve pain were discussed and the patient is agreeable to proceeding at this time. 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) 02/06/2024 Spondylosis without myelopathy or radiculopathy, lumbar region (ICD-10 - M47.816) 11/29/2023 Sacroiliitis, not elsewhere classified (ICD-10 - M46.1) 01/29/2024 Sacroiliitis, not elsewhere classified (ICD-10 - M46.1) 01/25/2024 Sacroiliitis, not elsewhere classified (ICD-10 - M46.1) 12/27/2023 Spondylosis without myelopathy or radiculopathy, lumbar region (ICD-10 - M47.816) 10/30/2023 Sacroiliitis, not elsewhere classified (ICD-10 - M46.1) 11/06/2023 Intervertebral disc disorders with radiculopathy, lumbar region (ICD-10 - M51.16) L4-5 HNP 10/24/2023 Spondylosis without myelopathy or radiculopathy, lumbar region (ICD-10 - M47.816) 09/27/2023 Sacroiliitis, not elsewhere classified (ICD-10 - M46.1) 08/28/2023 Sacroiliitis, not elsewhere classified (ICD-10 - M46.1) 07/31/2023 Spondylosis without myelopathy or radiculopathy, lumbar region (ICD-10 - M47.816) 06/30/2023 Spondylosis without myelopathy or radiculopathy, lumbar region (ICD-10 - M47.816) 07/24/2023 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) 05/31/2023 Spondylosis without myelopathy or radiculopathy, lumbar region (ICD-10 - M47.816) 05/02/2023 Sacroiliitis, not elsewhere classified (ICD-10 - M46.1) 04/06/2023 Sacroiliitis, not elsewhere classified (ICD-10 - M46.1) 04/06/2023 Postlaminectomy syndrome, not elsewhere classified (ICD-10 - M96.1) 05/02/2023 Postlaminectomy syndrome, not elsewhere classified (ICD-10 - M96.1) 05/31/2023 Postlaminectomy syndrome, not elsewhere classified (ICD-10 - M96.1) 06/30/2023 Postlaminectomy syndrome, not elsewhere classified (ICD-10 - M96.1) 07/31/2023 Postlaminectomy syndrome, not elsewhere classified (ICD-10 - M96.1) 10/24/2023 Sacroiliitis, not elsewhere classified (ICD-10 - M46.1) 09/27/2023 Postlaminectomy syndrome, not elsewhere classified (ICD-10 - M96.1) 08/28/2023 Postlaminectomy syndrome, not elsewhere classified (ICD-10 - M96.1) 10/30/2023 Postlaminectomy syndrome, not elsewhere classified (ICD-10 - M96.1) 12/27/2023 Postlaminectomy syndrome, not elsewhere classified (ICD-10 - M96.1) 11/29/2023 Postlaminectomy syndrome, not elsewhere classified (ICD-10 - M96.1) 11/06/2023 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) 01/25/2024 Spondylosis without myelopathy or radiculopathy, lumbar region (ICD-10 - M47.816) 01/29/2024 Spondylosis without myelopathy or radiculopathy, lumbar region (ICD-10 - M47.816) 02/06/2024 Postlaminectomy syndrome, not elsewhere classified (ICD-10 - M96.1) 03/06/2024 Postlaminectomy syndrome, not elsewhere classified (ICD-10 - M96.1) 02/06/2024 Other intervertebral disc degeneration, lumbar region (ICD-10 - M51.36) 01/29/2024 Postlaminectomy syndrome, not elsewhere classified (ICD-10 - M96.1) 01/25/2024 Postlaminectomy syndrome, not elsewhere classified (ICD-10 - M96.1) 11/29/2023 Other intervertebral disc degeneration, lumbar region (ICD-10 - M51.36) 12/27/2023 Other intervertebral disc degeneration, lumbar region (ICD-10 - M51.36) 10/30/2023 Other intervertebral disc degeneration, lumbar region (ICD-10 - M51.36) 10/24/2023 Postlaminectomy syndrome, not elsewhere classified (ICD-10 - M96.1) 09/27/2023 Other intervertebral disc degeneration, lumbar region (ICD-10 - M51.36) 08/28/2023 Other intervertebral disc degeneration, lumbar region (ICD-10 - M51.36) 06/30/2023 Other intervertebral disc degeneration, lumbar region (ICD-10 - M51.36) 07/31/2023 Other intervertebral disc degeneration, lumbar region (ICD-10 - M51.36) 05/31/2023 Other intervertebral disc degeneration, lumbar region (ICD-10 - M51.36) 05/02/2023 Other intervertebral disc degeneration, lumbar region (ICD-10 - M51.36) 04/06/2023 Other intervertebral disc degeneration, lumbar region (ICD-10 - M51.36) 03/06/2024 Other intervertebral disc degeneration, lumbar region (ICD-10 - M51.36) 05/02/2023 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) 04/06/2023 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) 05/31/2023 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) 06/30/2023 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) 07/31/2023 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) 08/28/2023 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) 09/27/2023 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) 10/24/2023 Other intervertebral disc degeneration, lumbar region (ICD-10 - M51.36) 10/30/2023 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) 12/27/2023 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) 11/29/2023 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) 01/25/2024 Other intervertebral disc degeneration, lumbar region (ICD-10 - M51.36) 01/29/2024 Other intervertebral disc degeneration, lumbar region (ICD-10 - M51.36) 02/06/2024 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) 03/06/2024 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) 03/06/2024 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) 02/06/2024 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) 01/29/2024 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) 01/25/2024 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) 11/29/2023 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) 12/27/2023 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) 10/30/2023 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) 10/24/2023 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) 09/27/2023 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) 08/28/2023 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) 07/31/2023 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 Hendrickson. I have discussed and reviewed all of the pertinent history, physical examination findings and diagnostic imaging results with him. As a result of our discussion, Dr. Hendrickson has determined the above assessment and directed the treatment plan. This note was dictated using voice recognition software and therefore inadvertent errors may have occurred. This note was dictated by KRAIG Morton 04/14/2023 Other Chau Graves was present for the entire interview and physical examination, acting as a scribe for Dr. Feng Hendrickson. Some of the above chart information was entered by Chau Graves. Dr. Hendrickson has reviewed and agrees with this portion of the documentation. The remainder of the above note was dictated by Dr. Hendrickson using voice recognition software and therefore inadvertent errors may have occurred. As a result, this note may not represent a completely accurate interpretation of the intended dictation provided. 05/02/2023 Other The above-named patient was evaluated in conjunction with Dr. Hendrickson. I have discussed and reviewed all of the pertinent history, physical examination findings and diagnostic imaging results with him. As a result of our discussion, Dr. Hendrickson has determined the above assessment and directed the treatment plan. This note was dictated using voice recognition software and therefore inadvertent errors may have occurred. This note was dictated by KRAIG Morton 05/31/2023 Other The above-named patient was evaluated in conjunction with Dr. Hendrickson. I have discussed and reviewed all of the pertinent history, physical examination findings and diagnostic imaging results with him. As a result of our discussion, Dr. Hendrickson has determined the above assessment and directed the treatment plan. This note was dictated using voice recognition software and therefore inadvertent errors may have occurred. This note was dictated by KRAIG Morton 06/05/2023 Other Chau Graves was present for the entire interview and physical examination, acting as a scribe for Dr. Feng Hendrickson. Some of the above chart information was entered by Chau Graves. Dr. Hendrickson has reviewed and agrees with this portion of the documentation. The remainder of the above note was dictated by Dr. Hendrickson using voice recognition software and therefore inadvertent errors may have occurred. As a result, this note may not represent a completely accurate interpretation of the intended dictation provided. 06/30/2023 Other The above-named patient was evaluated in conjunction with Dr. Hendrickson. I have discussed and reviewed all of the pertinent history, physical examination findings and diagnostic imaging results with him. As a result of our discussion, Dr. Hendrickson has determined the above assessment and directed the treatment plan. This note was dictated using voice recognition software and therefore inadvertent errors may have occurred. This note was dictated by KRAIG Morton 07/31/2023 Other The above-named patient was evaluated in conjunction with Dr. Hendrickson. I have discussed and reviewed all of the pertinent history, physical examination findings and diagnostic imaging results with him. As a result of our discussion, Dr. Hendrickson has determined the above assessment and directed the treatment plan. This note was dictated using voice recognition software and therefore inadvertent errors may have occurred. This note was dictated by KRAIG Morton 08/28/2023 Other The above-named patient was evaluated in conjunction with Dr. Hendrickson. I have discussed and reviewed all of the pertinent history, physical examination findings and diagnostic imaging results with him. As a result of our discussion, Dr. Hendrickson has determined the above assessment and directed the treatment plan. This note was dictated using voice recognition software and therefore inadvertent errors may have occurred. This note was dictated by KRAIG Morton 09/06/2023 Other The patient voiced understanding of the treatment plan and all questions were addressed. Obtain informed consent: Bilateral Lumbar 3-5 Radiofrequency Ablation under fluoroscopy. Monitor pulse, blood pressure and SaO2 before, after and as needed during procedure. Verify if the patient is currently taking blood thinner. Verify patients is not currently on antibiotics for infection. Patient may drive home. CARE PLAN: Knowledge deficit: Will verbalize understanding of the proposed procedure, including risk of electrical burn, complications and benefits of the procedure? Will the patient exhibit understanding of the discharge instructions? Safety: The potential for injury related to surgery was assessed; Fire risk score determined, test completed if applicable. Risk for injury related to wrong patient, site, procedure. TIME OUT for safety of patient and includes patient name, , procedure site, side, level, allergies, blood thinners, antibiotics, surgical counts, consents correct and signed etc. Risk for infection: Implements aseptic technique, protects from cross-contamination, performs skin preparations. Pain/Discomfort: Patient verbalizes acceptable level of pain relief prior to discharge and the ability to engage in desired activity. I HAVE REVIEWED THE PATIENT'S MEDICATION LIST AND HAVE RECONCILED THE ABOVE MEDICATIONS. PATIENT GOALS AND SAFETY CONCERNS HAVE BEEN ADDRESSED. RN initials SW. 09/27/2023 Other The above-named patient was evaluated in conjunction with Dr. Hendrickson. I have discussed and reviewed all of the pertinent history, physical examination findings and diagnostic imaging results with him. As a result of our discussion, Dr. Hendrickson has determined the above assessment and directed the treatment plan. This note was dictated using voice recognition software and therefore inadvertent errors may have occurred. This note was dictated by KRAIG Morton 10/30/2023 Other The above-named patient was evaluated in conjunction with Dr. Hendrickson. I have discussed and reviewed all of the pertinent history, physical examination findings and diagnostic imaging results with him. As a result of our discussion, Dr. Hendrickson has determined the above assessment and directed the treatment plan. This note was dictated using voice recognition software and therefore inadvertent errors may have occurred. This note was dictated by KRAIG Morton 11/29/2023 Other The above-named patient was evaluated in conjunction with Dr. Hendrickson. I have discussed and reviewed all of the pertinent history, physical examination findings and diagnostic imaging results with him. As a result of our discussion, Dr. Hendrickson has determined the above assessment and directed the treatment plan. This note was dictated using voice recognition software and therefore inadvertent errors may have occurred. This note was dictated by KRAIG Motron. Total Time Spent with Patient and Medical Decision Makin minutes 12/27/2023 Other The above-named patient was evaluated in conjunction with Dr. Hendrickson. I have discussed and reviewed all of the pertinent history, physical examination findings and diagnostic imaging results with him. As a result of our discussion, Dr. Hendrickson has determined the above assessment and directed the treatment plan. This note was dictated using voice recognition software and therefore inadvertent errors may have occurred. This note was dictated by KRAIG Morton. Total Time Spent with Patient and Medical Decision Makin minutes 01/25/2024 Other The above-named patient was evaluated in conjunction with Dr. Hendrickson. I have discussed and reviewed all of the pertinent history, physical examination findings and diagnostic imaging results with him. As a result of our discussion, Dr. Hendrickson has determined the above assessment and directed the treatment plan. This note was dictated using voice recognition software and therefore inadvertent errors may have occurred. This note was dictated by KRAIG Morton Total time spent with patient and medical decision making 30 minutes 02/06/2024 Other The above-named patient was evaluated in conjunction with Dr. Hendrickson. I have discussed and reviewed all of the pertinent history, physical examination findings and diagnostic imaging results with him. As a result of our discussion, Dr. Hendrickson has determined the above assessment and directed the treatment plan. This note was dictated using voice recognition software and therefore inadvertent errors may have occurred. This note was dictated by KRAIG Morton. Total Time Spent with Patient and Medical Decision Makin minutes 03/06/2024 Other The above-named patient was evaluated in conjunction with Dr. Hendrickson. I have discussed and reviewed all of the pertinent history, physical examination findings and diagnostic imaging results with him. As a result of our discussion, Dr. Hendrickson has determined the above assessment and directed the treatment plan. This note was dictated using voice recognition software and therefore inadvertent errors may have occurred. This note was dictated by KRAIG Morton. Total Time Spent with Patient and Medical Decision Makin minutes PLAN OF TREATMENT Pending Test Test Name Order Date MRI : Lumbar Spine with and without Cont rast ([id number]) 02/01/2022 MRI : Lumbar Spine with and without Cont rast ([id number]) 04/25/2022 XRAY right shoulder 09/09/2020 [facility] 01/03/2022 [facility] 03/29/2022 [facility] 09/16/2022 [facility] 06/01/2023 [facility] 08/28/2023 [facility] 11/29/2023 [facility] 03/06/2024 Next Appt Details Provider Name:Feng Olivo winifred vikas, 03/26/2024 10:15:00 AM, [address] [place], [address], Provider Name:Feng Olivo winifred lowekaren, 04/05/2024 10:00:00 AM, [address] [place], [address], Insurance Providers Payer Name Payer Address Payer Phone Subscriber Number Group Number Insured Name Patient Relationship to Insured Coverage Start Date Coverage End Date [employer] Claims [address] [address] [place] [phone] [id number] MIKE PADGETT Self - patient is the insured 8 MEDICAL (GENERAL) HISTORY Medical History History ICD Code Hypertension Stomach Ulcers Depression Insomnia GERD Anemia Asthma Migraine Surgical History Surgery Date(Month/Year) Pain Pump Removal 2011 Multiple Lumbar Surgeries
--- OUTSIDE RECORDS SUMMARY | 2024-03-14 23:41 | XMS_ITS | Clinical Summary ---
Author Organization [facility] Address [address] [facility] [address] [place] [address] Care Team Providers Care Candy Feeder Name Role Phone Unavailable Primary Care Provider Unavailabl e Allergies Active Allergy Reactions Criticality Noted Date Comments Alendronate Nausea 09/19/2011 Amitriptyline Unknown 05/13/2007 Made her sick Aripiprazole Nausea 03/08/2011 Pt. Doesn't remember Clindamycin Diarrhea,Nausea 10/20/2011 Fentanyl Nausea 05/13/2007 Gabapentin Other (see Comments) 03/09/2016 Leg weakness Morphine Nausea 12/21/2006 Pregabalin Other (see Comments) 05/13/2007 ineffective Ropinirole Unknown 05/24/2016 Medications albuterol (PROVENTIL HFA, VENTOLIN HFA) 108 (90 Base) MCG/ACT Aerosol Solution take by inhalation. 7 Active Calcium Carbonate-Vitam in D3 (CALCIUM 600/VITAMIN D) 600-400 MG-UNIT Tablet Take 1 Tab by mouth daily. 6 Active carvedilol (COREG) 25 MG Tablet Take 25 mg by mouth 2 times daily. With meals 7 Active Cholecalciferol (VITAMIN D3) 1000 units Capsule Take 1 capsule by mouth daily. 7 Active fluticasone (FLONASE) 50 MCG/ACT Suspension USE 2 SPRAYS IN EACH NOSTRIL DAILY NEEDED 1 7 Active Multiple Vitamin (MULTIVITAMINS PO) Take 1 Tab by mouth daily. Multivitamin with Iron and Minerals 9 mg iron-400 mcg tablet Active amLODIPine (NORVASC) 5 MG Tablet TAKE 2 TABLETS BY MOUTH EVERY DAY 180 Tab 3 7 Active omeprazole (PRILOSEC) 20 MG CAPSULE DELAYED RELEASE Take 1 Cap by mouth daily. 90 Cap 3 8 Active losartan potassium-hydro chlorothiazide (HYZAAR) 100-25 MG Tablet TAKE 1 TABLET BY MOUTH EVERY DAY 90 Tab 2 8 Active HYDROcodone-goldy taminophen (NORCO) 10-325 MG Tablet Take 1 Tab by mouth every 6 hours as needed (pain). 120 Tab 8 Active carisoprodol (SOMA) 350 MG Tablet Take 1 Tab by mouth every 8 hours as needed for Muscle spasms. 90 Tab 8 Active traZODone (DESYREL) 100 MG Tablet TAKE 3 TABLETS BY MOUTH AT BEDTIME 270 Tab 8 Active FLUoxetine (PROZAC) 40 MG Capsule TAKE 2 CAPSULES BY MOUTH EVERY DAY 180 Cap 8 Active Active Problems Problem Noted Date Diagnosed Date Abnormal mammogram of right breast 07/01/2017 Polypharmacy 12/26/2016 Hyperlipidemia 11/29/2016 Elevated vitamin B12 level 11/29/2016 Anemia, normocytic normochromic 11/29/2016 Elevated liver enzymes 11/29/2016 Overweight 11/07/2016 Chronic low back pain with sciatica 11/07/2016 Insomnia 11/07/2016 Vitamin D deficiency 11/07/2016 High blood pressure 11/07/2016 Gastroesophageal reflux disease 11/07/2016 Resolved Problems Problem Noted Date Diagnosed Date Resolved Date Chronic back pain 12/23/2016 12/23/2016 Immunizations Immunization Administration Dates Next Due H1N1 Flu, Unspecified Formulation 02/10/2009 Influenza Vaccine 12/23/2011, 1,01/06/2010, 008,01/16/2007,01/12/2005 Influenza Vaccine, Quadrivalent, PF 01/04/2017 Td Vaccine (preservative free) 06/09/2005 Family History Medical History Relation Name Comments Heart Disease Father Breast Cancer Mother Diabetes Mother Hypertension Mother Osteoarthritis Mother Breast Cancer Other 1 pat cousin Breast Cancer Other 2 pat cousin Breast Cancer Other 3 pat cousin Relation Name Status Comments Father Mother Other 1 pat cousin Alive Other 2 pat cousin Alive Other 3 pat cousin Alive Social History Tobacco Use Types Packs/Day Years Used Date Smoking Tobacco: Never Tobacco Cessation:Counseling Given: No Alcohol Use Standard Drinks/Week Comments No 0 (1 standard drink = 0.6 oz pur e alcohol) Comments No Sex and Gender Information Value Date Recorded Sex Assigned at Not on file Legal Sex 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 Gender Identity Not on file Sexual Orientation Not on file Last Filed Vital Signs Vital Sign Reading Time Taken Comments Blood Pressure 120/64 01/04/2017 12:58 PM LOG LOADER Pulse 65 01/04/2017 12:58 PM LOG LOADER Temperature 36.5 ??C (97.7 ??F) 01/04/2017 12:[address] Respiratory Rate 18 01/04/2017 12:58 PM LOG LOADER Oxygen Saturation 97% 01/04/2017 12:58 PM LOG LOADER Inhaled Oxygen Concentration - - Weight 62.6 kg (138 lb) 01/04/2017 12:58 PM LOG LOADER Height 152.4 cm (5') 01/04/2017 12:58 PM LOG LOADER Body Mass Index 26.95 01/04/2017 12:58 PM LOG LOADER Plan of Treatment Health Maintenance Due Date Last Done Comments DEXA Bone Density 1955 Hepatitis C Virus (HCV) Screening 1955 TdaP Immunization 1955 Colonoscopy 05/13/1999 Colorectal Cancer Screening 05/13/1999 Cologuard 2004 Immunochemical Fecal Occult Blood 2004 Pneumococcal Immunization (50+ years) (1 of 1 - PCV) 2004 Zoster Immunization (1 of 2) 2004 Mammogram 05/13/2019 2017 Influenza Immunization (#1) 10/22/202312/21, 12/23/2011, 12/21/2010, Additional history exists SARS-COV-2 Immunization (2023- season) 2023 05/22/2020, 05/01/2020 Respiratory Syncytial Virus (RSV) Immunization (Adult) (1 - 1-dose 75+ series) 2029 Hepatitis B Immunization Aged Out No longer eligible based on patient's age to complete this topic Meningococcal Immunization (ACWY) Aged Out No longer eligible based on patient's age to complete this topic Rotavirus Immunization Aged Out No lo nger eligible based on patient's age to complete this topic Procedures Procedure Name Priority Date/Time Associated Diagnosis Comments WALTER SCREENING BILATERAL DIGITAL W CAD W RYAN Routine 2017 5:02 PM CDT Encounter for screening mammogram for breast cancer from Last 3 Months or Most Recently Relevant to Health Maintenance Results * WALTER SCREENING BILATERAL DIGITAL W CAD W RYAN (2017 5:02 PM CDT) Anatomical Region Laterality Modality breast Bilateral Mammography 2017 4:41 PM CDT Narrative 05/15/2017 5:22 PM CDT - WALTER SCREENING BILATERAL DIGITAL W CAD W RYAN BILATERAL DIGITAL SCREENING MAMMOGRAM 3D/2D WITH CAD WITH MEDIOLATERAL OBLIQUE CRANIOCAUDAL: 2017 The study was acquired using digital technology and interpreted from soft copy. ?? Current study was also evaluated with ICAD version 7.2. ?? CLINICAL: New baseline. Routine screening. Patient has no complaints. No personal history of cancer. Mother with postmenopausal breast cancer and three paternal cousins had breast cancer. ?? COMPARISONS: No prior exams were available for comparison. ?? BREAST TISSUE:There are scattered fibroglandular densities in both breasts. ?? FINDINGS: There is a round mass in the right breast at 6 o'clock in the retroareolar region. ?? No other significant masses, calcifications, or other findings are seen in either breast. ?? IMPRESSION: BI-RAD 0 ??ADDITIONAL IMAGING EVALUATION NEEDED The round mass in the right breast is indeterminate. ??An ultrasound is recommended. ?? An immediate follow-up is recommended. ?? The patient has been or will be contacted. ?? Electronically signed by: Nathan Rojas M.D. ? bs/suzie:05/15/2017 14:18:37 ?? Copy Worker: Cher CARPENTER(R)(M), [facility] letter sent: Additional Imaging ?? Reading location: [facility] BI-RADS: 0 Additional Imaging Evaluation Needed Procedure Note Nathan Rojas MD - 05/15/2017 - WALTER SCREENING BILATERAL DIGITAL W CAD W RYAN BILATERAL DIGITAL SCREENING MAMMOGRAM 3D/2D WITH CAD WITH MEDIOLATERAL OBLIQUE CRANIOCAUDAL: 2017 The study was acquired using digital technology and interpreted from soft copy. Current study was also evaluated with ICAD version 7.2. CLINICAL: New baseline. Routine screening. Patient has no complaints. No personal history of cancer. Mother with postmenopausal breast cancer and three paternal cousins had breast cancer. COMPARISONS: No prior exams were available for comparison. BREAST TISSUE:There are scattered fibroglandular densities in both breasts. FINDINGS: There is a round mass in the right breast at 6 o'clock in the retroareolar region. No other significant masses, calcifications, or other findings are seen in either breast. IMPRESSION: BI-RAD 0 ADDITIONAL IMAGING EVALUATION NEEDED The round mass in the right breast is indeterminate. An ultrasound is recommended. An immediate follow-up is recommended. The patient has been or will be contacted. Electronically signed by: Nathan clark/suzie:05/15/2017 14:18:37 Copy Worker: Cher LR)(Aurelia), [facility] letter sent: Additional Imaging Reading location: [facility] BI-RADS: 0 Additional Imaging Evaluation Needed [facility] IMG MAMMO ORDERABLES Final Result from Last 3 Months or Most Recently Relevant to Health Maintenance Insurance MEDICARE C [employer]
--- OUTSIDE RECORDS SUMMARY | 2024-03-14 23:41 | XMS_ITS | Clinical Summary ---
Author Organization [facility] Address [address] [place] [address] Care Team Providers Care Pumper Gager Name Role Phone Unavailable Primary Care Provider Unavailabl e Social History Tobacco Use Types Packs/Day Years Used Date Smoking Tobacco: Never Assessed Comments Unknown Sex and Gender Information Value Date Recorded Sex Assigned at Not on file Legal Sex Female 7:14 PM PUMP REBUILDER Gender Identity Not on file Sexual Orientation Not on file Plan of Treatment Health Maintenance Due Date Last Done Comments COLORECTAL SCREENING 05/13/1999 Colorectal Cancer Screening 05/13/1999 FIT-DNA Q 3 years 05/13/1999 FIT/FOBT Q 1 year 05/13/1999 Flex Sig/CT Colonography Q 5 years 05/13/1999 ZOSTER VACCINE (1 of 2) 2004 RSV VACCINE (60+ or ) (1 - Risk 60-74 years 1-dose series) 2014 PNEUMOCOCCAL VACCINE 65+ YEA RS (2 of 2 - PCV) 08/28/2015 08/27/2014 BREAST CANCER SCREENING 2018 2017, 09/01 INFLUENZA VACCINE (#1) 2023 7, 02/09/2016, 02/04/2015, Additional history exists DTAP/TDAP/TD VACCINES (2 - T d or Tdap) 12/05/2023 12/04/2013, 06/09/2005 OSTEOPOROSIS SCREENING Completed 09/01/2011 Insurance [employer] GOLD [employer]US [id number] HMO
== END 2024-03-13 10:56 | disposition home or self-care (01) ==
LOC: ANHGOSHLAB 10:57
PROVIDERS: PCP Nurse Practitioner Family; Visit Provider Family Medicine
DX: N28.9 Disorder of kidney and ureter, unspecified (principal); I10 Essential (primary) hypertension
CPT/HCPCS: 36415; 80053

== ENCOUNTER 2024-04-01 14:53 | Outpatient (CLI) | payer MEDICARE, MEDICAID, SELFPAY ==
--- NOTE | ~2024-04-01 | XR_ITS ---
Clinical Indication: Dyspnea PA and lateral views of the chest: Comparison: 02/28/2024 Findings: The lungs are clear, without evidence of focal consolidation or pleural effusion. Cardiome diastinal silhouette is stable. Stable prominence of the central pulmonary arterial structures. Bones and soft tissues are unremarkable. Impression: Possible pulmonary artery hypertension. Clear lungs. Reviewed, dictated and finalized at location . WORKER Impression: Possible pulmonary artery hypertension. Clear lungs.
--- OUTSIDE RECORDS SUMMARY | 2024-04-01 15:06 | XMS_ITS | Clinical Summary ---
Author Organization [facility] Address [address] [facility] [address] [place] [address] Care Team Providers Care Tiedown Operator Name Role Phone Unavailable Primary Care Provider [...] on file Legal Sex Female 3:45 AM VISCERA WASHER Gender Identity Not on file Sexual Orientation Not on file Last Filed Vital Signs Vital Sign Reading Time Taken Comments Blood Pressure 120/64 01/04/2017 12:58 PM VISCERA WASHER Pulse 65 01/04/2017 12:58 PM VISCERA WASHER Temperature 36.5 C (97.7 F) 01/04/2017 12:58 PM VISCERA WASHER Respiratory Rate 18 01/04/2017 12:58 PM VISCERA WASHER Oxygen Saturation 97% 01/04/2017 12:58 PM VISCERA WASHER Inhaled Oxygen Concentration - - Weight 62.6 kg (138 lb) 01/04/2017 12:58 PM VISCERA WASHER Height 152.4 cm (5') 01/04/2017 12:58 PM VISCERA WASHER Body Mass Index 26.95 01/04/2017 12:58 PM VISCERA WASHER Plan of Treatment Health Maintenance Due Date [...] contacted. Electronically signed by: Nathan clark/suzie:05/15/2017 14:18:37 School Resource Officer: Cher CARPENTER(Tigre)(Aurelia), [facility] letter sent: Additional Imaging Reading location: [facility] BI-RADS: 0 Additional Imaging Evaluation Needed Procedure [...] will be contacted. Electronically signed by: Nathan Rojas M.D. bs/suzie:05/15/2017 14:18:37 School Resource Officer: Cher CARPENTER(Tigre)(M), [facility] letter sent: Additional Imaging Reading location: [facility] BI-RADS: 0 Additional Imaging Evaluation Needed Figueroa Britt MD IMG MAMMO ORDERABLES Final Result from Last 3 Months or Most Recently Relevant to Health Maintenance Insurance MEDICARE C [employer]
--- OUTSIDE RECORDS SUMMARY | 2024-04-01 15:06 | XMS_ITS | Patient Health Record ---
Author Organization [facility] Address [address] [place] [address] VIDHYA Johnson [address] Care Team Providers Care Driller'S Assistant Name Role Phone Anabella CARMEN, Joy Primary Care Provider Unavailable Feng Hendrickson Unavailable [phone] ALLERGIES Allergen (clinical drug ingredient) Drug/Non Drug Allergy documented on EMR Reaction Allergy Type Onset Date Status aripiprazole Aripiprazole nausea and vomiting Drug Allergy Active clindamycin Clindamycin diarrhea Drug Allergy Act lucian fentanyl Fentanyl nausea Drug Allergy Active morphine Morphine rash/itching Drug Allergy Acti ve RESULTS Component Value Reference Range Notes Active Implants Results (Not yet reviewed by provider) Interpretation: Performing Lab:[id number] [facility], [address] [address] [facility] [address] Angelika Garcia MD Notes/Report: 4-ANPP: Fentanyl Negative. [...] 100 ng/mL Tramadol Quantification negative 100 ng/mL A-ohmnaqvpt-qdukzbqe Quantification negative 100 n g/mL K-Brovxsody-Auygdjaq Quantification negative 100 n g/mL Tapentadol Quantification negative 50 ng/mL Meperidine Quantification negative 50 ng/mL Normeperidine Quantification negative 50 ng/mL Alpha-Hydroxyalprazolam Quantification negative 20 ng/mL 6-Arobn-Ezihzjmzxd Quantification negative 20 ng/m L Lorazepam Quantification negative 40 ng/mL Nordiazepam Quantification negative 40 ng/mL Temazepam Quantification negative 50 ng/mL Oxazepam Quantification negative 40 ng/mL Amphetamine Quantification positive-> 58515 100 ng/mL Methylphenidate Quantification negative 50 ng/mL [...] 10 ng/mL Flubromazolam Quantification negative 10 ng/mL ENU358 metabolite Quantification negative 10 ng/mL IOR510 metabolite Quantification negative 10 ng/mL RCS4 metabolite Quantification negative 10 ng/mL XLR11/UR144 metabolite negative 10 ng/mL 5F-ADB-M7 negative 10 ng/mL CR-GOYXXLRM-P2 negative 10 ng/mL LDCE-ZEKPQLIB-K4 negative 10 ng/mL Eutylone Quantification negative 10 ng/mL Methylone Quantification negative 3 ng/mL Xylazine Quantification negative 10 ng/mL 4-hydroxy Xylazine Quantification negative 10 ng/m L Mitragynine (Kratom alkaloid ) Quantification negative 1 ng/mL 6-GF-Pkhmjbzqwlt (Kratom alk aloid) Quantification negative 1 ng/mL ETHANOL negative 20 mg/dL mg/dL ETHYL GLUCURONIDE SCREEN negative 500 ng/mL Ethyl Glucuronide Quantification negative 500 ng/m L Ethyl Sulfate Quantification negative 500 ng/mL CREATININE (CHEMICAL) normal-160.1 >20 mg/dL mg/dL OXIDANT normal-0 <200 ug/mL ug/mL PH normal-5.2 4.5 - 9.5 SPECIFIC GRAVITY normal-1.027 1.003 - 1.035 [facility] Results (Not yet reviewed by provider) Interpretation: Performing Lab:[id number] [facility], [address] [address] [place] [id number] Angelika Garcia MD Notes/Report: Codeine negative 1 ng/mL Morphine negative 1 ng/mL Hydrocodone positive-120.252 1 ng/mL Norhydrocodone Quantification positive-8.450 2 ng/mL Hydromorphone negative 1 ng/mL Oxycodone negative 1 ng/mL Noroxycodone Quantification negative 2 ng/mL Oxymorphone negative 1 ng/mL Fentanyl Quantification negative 0.2 ng/mL Norfentanyl Quantification negative 1 ng/mL Methadone negative 2 ng/mL EDDP (Methadone metabolite) negative 2 ng/mL Tramadol Quantification negative 5 ng/mL D-Ihwrsfsng-Diaaybwl Quantification negative 5 ng/ mL Alprazolam negative [...] 6-WALTER (Heroin metabolite) Quantification negative 1 ng/mL [facility] Results (Not yet reviewed by provider) Interpretation: Performing Lab:[id number] [facility], [address] [address] [place] [id number] Angelika Garcia MD Notes/Report: Acetyl fentanyl: Fentanyl [...] 100 ng/mL Tramadol Quantification negative 100 ng/mL Y-tbpofaydc-hvhmsiiy Quantification negative 100 n g/mL F-Oltnzakky-Noyzmrsl Quantification negative 100 n g/mL Alpha-Hydroxyalprazolam Quantification negative 20 ng/mL 5-Fzpvc-Lhujccinah Quantification negative 20 ng/m L Lorazepam Quantification [...] (Kratom alkaloid ) Quantification negative 1 ng/mL 3-CD-Rkgugplfuhv (Kratom alk aloid) Quantification negative 1 ng/mL Ethyl Glucuronide Quantification positive-814.348 500 ng/mL Ethyl Sulfate Quantification negative 500 ng/mL Active Implants Results (Not yet reviewed by provider) Interpretation: Performing Lab:[id number] [facility], [address] [address] [facility] [address] Angelika Garcia MD Notes/Report: 4-ANPP: Fentanyl Negative. Acetyl fentanyl: Fentanyl Negative. Acetyl norfenta nyl: Fentanyl Negative. Acryl fentanyl: Fentanyl Negative. Carfentanil: Fentany l Negative. Para-fluorofentanyl: Fentanyl Negative. Codeine Quantification negative 50 ng/mL Morphine Quantification negative 50 ng/mL Hydrocodone Quantification positive-81049.023 50 ng/mL Norhydrocodone Quantification positive-> 6400 50 [...] 100 ng/mL Tramadol Quantification negative 100 ng/mL Y-nexahrzrt-tjmiyzmh Quantification negative 100 n g/mL T-Zpbsgfkkr-Auhulnwh Quantification negative 100 n g/mL Tapentadol Quantification negative 50 ng/mL Meperidine Quantification negative 50 ng/mL Normeperidine Quantification negative 50 ng/mL Alpha-Hydroxyalprazolam Quantification negative 20 ng/mL 3-Druqq-Hwxwcesiqd Quantification negative 20 ng/m L Lorazepam Quantification negative 40 ng/mL Nordiazepam Quantification negative 40 ng/mL Temazepam Quantification negative 50 ng/mL Oxazepam Quantification negative 40 ng/mL Amphetamine Quantification positive-> 41529 100 ng/mL Methylphenidate Quantification negative 50 ng/mL [...] 10 ng/mL Flubromazolam Quantification negative 10 ng/mL UIP506 metabolite Quantification negative 10 ng/mL IVZ827 metabolite Quantification negative 10 ng/mL RCS4 metabolite Quantification negative 10 ng/mL XLR11/UR144 metabolite negative 10 ng/mL 5F-ADB-M7 negative 10 ng/mL EL-AUBHCJFS-D2 negative 10 ng/mL XSSL-FOWAJYFQ-N3 negative 10 ng/mL Eutylone Quantification negative 10 ng/mL Methylone Quantification negative 3 ng/mL Xylazine Quantification negative 10 ng/mL 4-hydroxy Xylazine Quantification negative 10 ng/m L Mitragynine (Kratom alkaloid ) Quantification negative 1 ng/mL 7-DB-Umwfedjgpez (Kratom alk aloid) Quantification negative 1 ng/mL ETHANOL negative 20 mg/dL mg/dL ETHYL GLUCURONIDE SCREEN negative 500 ng/mL Ethyl Glucuronide Quantification negative 500 ng/m L Ethyl Sulfate Quantification negative 500 ng/mL CREATININE normal-139.3 >20 mg/dL mg/dL OXIDANT normal-0 <200 ug/mL ug/mL PH normal-4.9 4.5 - 9.5 SPECIFIC GRAVITY normal-1.024 1.003 - 1.035 REASON FOR REFERRAL No Information MEDICATIONS Medication SIG (Take, Route, Frequency, Duration) Notes Start Date End Date Status HYDROcodone-Acetaminophen 10-325 MG 1 tablet Orally every 4 to 6 hrs as needed for severe pain (max 5x/day) for 30 days 12/27/2023 Active Amphetamine-Dextroamphetam ine 20 MG TAKE 1 TABLET BY MOUTH EVERY DAY Oral for 30 Active hydrOXYzine HCl 25 MG TAKE 1 TABLET BY M OUTH THREE TIMES A DAY NEEDED FOR ANXIETY Oral for 10 Active Metoprolol Succinate ER 25 MG TAKE 1 TABLET BY MOUTH EVERY DAY Oral for 90 Active tiZANidine HCl 4 MG 1 tablet as needed O ral 3 x day muscle spasm for 30 days 12/13/2019 Active FLUoxetine HCl 40 MG 1 capsule Oral Once a day Active rOPINIRole HCl 0.5 MG 1 tablet 1 to 3 ho urs before bedtime Orally Once a day Active traZODone HCl 100 MG 1 tablet at bedtime Oral Once a day Active Voltaren 1 % apply 4 grams to ji nful joint(s) Transdermal 4x/day as needed for pain for 30 days Active Ferrous Sulfate 325 (65 Fe) MG 325 MG ORALLY TWICE A DAY Oral for 90 Active Narcan 4 MG/0.1ML 1 actuation in one n ostril x1, Nasally 2-3 minutes as needed until the patient is responsive or EMS arrives Active Lidocaine-Prilocaine 2.5-2.5 % as directed External Active Fluticasone Propionate 50 MCG/ACT 1 spray in each nostril Nasal Twice a day Active Losartan Potassium 25 MG 1 tablet Oral Once a day Active [employer] D3 50 MCG (2000 UT) TAKE 1 CAPSULE B Y MOUTH EVERY DAY Oral for 90 Active ProAir HFA 108 (90 Base) MCG/ACT 2 puffs as needed Inhalation every 6 hrs 09/25/2017 Active Vitamin D3 1000 UNIT 1 capsule Orally On day 09/25/2017 Active ZyPREXA 5 MG 1 tablet Orally Once a day Active amLODIPine Besylate 5 MG 1 tablet Oral Once a day Active Omeprazole 20 MG 1 capsule 30 minutes before morning meal Oral Once a day Active SOCIAL HISTORY Tobacco Use: Social History [...] (F40.231) Active confirmed Fear of medical treatment (251996522) Problem Brachial plexus disorders (G54.0) Active confirmed Brachial p cassandra disorder (9822014) Problem Chronic pain syndrome (G89.4) Active confirmed Chronic ji n syndrome (450623780) Problem Unilateral primary osteoarthritis, left knee (M17.12) Active confirmed Osteoarth ritis of knee (100371758) Problem Unspecified osteoarthritis, unspecified site (M19.90) Active confirmed Osteoarthritis (524431621) Problem Pain in right shoulder (M25.511) Active confirmed Pain of r ight shoulder region (finding) (7049593202) Problem Pain in left shoulder (M25.512) Active confirmed Shoulder joint pain (832450321) Problem Sacroiliitis, not elsewhere classified (M46.1) Active confirmed Solitary sacroiliitis (140505104) Problem Spondylosis without myelopathy or radiculopathy, lumbar region (M47.816) Active confirmed Lumbosacral spondylosis without myelopathy (14020320) Problem Spondylosis without myelopathy or radiculopathy, lumbosacral region (M47.817) Active confirmed Lumbosacral spondylosis without myelopathy (disorder) (22594717) Problem Intervertebral disc disorders with radiculopathy, lumbar 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) Active confirmed Radiculopathy due to lumbar intervertebral disc disorder (935991996060475 ) L4-5 HNP Problem Other intervertebral disc degeneration, 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 confirmed Degeneration of lumbar intervertebral disc (93376657) Problem Radiculopathy, lumbar region (M54.16) Active confirmed Lumbar radiculopathy (631014555) Problem Postlaminectomy syndrome, not elsewhere classified (M96.1) Active confirmed Post-lami nectomy syndrome (95496831) Problem Osseous stenosis of neural canal 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) Active confirmed Spinal stenosis of lumbar region (70367857) Problem Intervertebral disc stenosis of neural canal of lumbar region (M99.53) Active confirmed Spinal stenosis of lumbar region (28083233) Problem longterm (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 of anticoagulants (Z79.01) Active confirmed Long-term current use of anticoagulant (794224628) 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 Respiratory Rate 16 /min 03/26/2024 Post Op Vitals: BP 146/81 , HR 74 , RR 16, Spo2 97% Discharged home, ambulatory, and in no acute distress. Oximetry 99 % 09/06/2023 Post procedure vitals BP 166/97 HR 80 R 18 SpO2 99%. Pt discharged to home ambulatory with steady gait, no sign of acute distress. Blood pressure diastolic 92 mm Hg 03/26/2024 Post Op Vitals: BP 146/81 , HR 74 , RR 16, Spo2 97% Discharged home, ambulatory, and in no acute distress. Height 60 in 03/26/2024 Post Op Vitals: BP 146/81 , HR 74 , RR 16, Spo2 97% Discharged home, ambulatory, and in no acute distress. Blood pressure systolic 136 mm Hg 03/26/2024 Post Op Vitals: BP 146/81 , HR 74 , RR 16, Spo2 97% Discharged home, ambulatory, and in no acute distress. Weight 138 lbs 03/26/2024 Post Op Vitals: BP 146/81 , HR 74 , RR 16, Spo2 97% Discharged home, ambulatory, and in no acute distress. BMI 26.95 kg/m2 03/26/2024 Post Op Vitals: BP 146/81 , HR 74 , RR 16, Spo2 97% Discharged home, ambulatory, and in no acute distress. Encounters Encounter Location Date Provider Diagnosis [facility] [address] [place] [address] 04/06/2023 Feng Stynowick Radiculopathy, lumba r region M54.16 ; Spondylosis without myelopathy or radiculopathy, lumbar region M47.816 ; Sacroiliitis, not elsewhere classified M46.1 ; Postlaminectomy syndrome, not elsewhere classified M96.1 ; Other intervertebral disc degeneration, lumbar region M51.36 ; Osseous stenosis of neural canal of lumbar region M99.33 ; 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 and 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 helper termite (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 of 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 Z79.891 [facility] [address] [place] [phone] 04/14/2023 Feng Stynowick Radiculopathy, lumba r region M54.16 [facility] [address] [place] [phone] 05/02/2023 Feng Stynowick Radiculopathy, lumba r region M54.16 ; Spondylosis without myelopathy or radiculopathy, lumbar region M47.816 ; Sacroiliitis, not elsewhere classified M46.1 ; Postlaminectomy syndrome, not elsewhere classified M96.1 ; Other intervertebral disc degeneration, lumbar region M51.36 ; Osseous stenosis of neural canal of lumbar region M99.33 ; 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 and 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 helper termite (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 of 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 Z79.891 [facility] [address] [place] [phone] 05/31/2023 Feng Stynowick Radiculopathy, lumba r region M54.16 ; Sacroiliitis, not elsewhere classified M46.1 ; Spondylosis without myelopathy or radiculopathy, lumbar region M47.816 ; Postlaminectomy syndrome, not elsewhere classified M96.1 ; Other intervertebral disc degeneration, lumbar region M51.36 ; Osseous stenosis of neural canal of lumbar region M99.33 ; 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 and 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 helper termite (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 of 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 Z79.891 [facility] [address] [place] [address], [place] [address] 06/05/2023 Feng Stynowick Sacroiliitis, not elsewhere classified M46.1 [facility] [address] [place] [phone] 06/30/2023 Feng Stynowick Radiculopathy, lumba r region M54.16 ; Sacroiliitis, not elsewhere classified M46.1 ; Spondylosis without myelopathy or radiculopathy, lumbar region M47.816 ; Postlaminectomy syndrome, not elsewhere classified M96.1 ; Other intervertebral disc degeneration, lumbar region M51.36 ; Osseous stenosis of neural canal of lumbar region M99.33 ; 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 and 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 helper termite (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 of 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 Z79.891 [facility] [address] [place] [phone] 07/11/2023 Feng Stynowick Radiculopathy, lumba r region M54.16 [facility] [address] [place] [phone] 07/18/2023 Feng Stynowick [facility] [address] [place] [address], [place] [address] 07/24/2023 Feng Stynowick Radiculopathy, lumba r region M54.16 ; Other intervertebral disc degeneration, lumbar region M51.36 and Osseous stenosis of neural canal of lumbar region M99.33 [facility] [address] [place] [address], [place] [address] 07/31/2023 Feng Stynowick Radiculopathy, lumba r region M54.16 ; Sacroiliitis, not elsewhere classified M46.1 ; Spondylosis without myelopathy or radiculopathy, lumbar region M47.816 ; Postlaminectomy syndrome, not elsewhere classified M96.1 ; Other intervertebral disc degeneration, lumbar region M51.36 ; Osseous stenosis of neural canal of lumbar region M99.33 ; 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 and 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 [address] [place] [address] 09/06/2023 Feng Stynowick Spondylosis without myelopathy or radiculopathy, lumbar region M47.816 and Spondylosis without myelopathy or radiculopathy, lumbosacral region M47.817 [facility] [address] [place] [phone] 09/07/2023 Feng Stynowick [facility] [address] [place] [address] [place] [address] 09/27/2023 Feng Stynowick Radiculopathy, lumba r region M54.16 ; Spondylosis without myelopathy or radiculopathy, lumbar region M47.816 ; Sacroiliitis, not elsewhere classified M46.1 ; Postlaminectomy syndrome, not elsewhere classified M96.1 ; Other intervertebral disc degeneration, lumbar region M51.36 ; Osseous stenosis of neural canal of lumbar region M99.33 ; 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 and 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 helper termite (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 of 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 Z79.891 [facility] [address] [facility] [place] [address] 10/04/2023 Feng Stynowick [facility] [address] [facility] [place] [address] 10/24/2023 Feng Stynowick Radiculopathy, lumba r region M54.16 [facility] [address] [facility] [place] [address] 10/24/2023 Feng Stynowick Radiculopathy, lumba r region M54.16 ; Spondylosis without myelopathy or radiculopathy, lumbar region M47.816 ; Sacroiliitis, not elsewhere classified M46.1 ; Postlaminectomy syndrome, not elsewhere classified M96.1 ; Other intervertebral disc degeneration, lumbar region M51.36 ; Osseous stenosis of neural canal of lumbar region M99.33 ; 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 and 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 helper termite (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 of 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 Z79.891 [facility] [address] [place] [phone] 10/26/2023 Feng Stynowick Radiculopathy, lumba r region M54.16 [facility] [address] [place] [phone] 10/30/2023 Feng Stynowick Radiculopathy, lumba r region M54.16 ; Spondylosis without myelopathy or radiculopathy, lumbar region M47.816 ; Sacroiliitis, not elsewhere classified M46.1 ; Postlaminectomy syndrome, not elsewhere classified M96.1 ; Other intervertebral disc degeneration, lumbar region M51.36 ; Osseous stenosis of neural canal of lumbar region M99.33 ; 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 and 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 helper 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 (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 of 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 Z79.891 [facility] [address] [place] [phone] 11/06/2023 Feng Stynowick Radiculopathy, lumba r region M54.16 ; Intervertebral disc disorders with radiculopathy, lumbar region M51.16 and Osseous stenosis of neural canal of lumbar region M99.33 [facility] [address] [place] [phone] 11/29/2023 Feng Stynowick Radiculopathy, lumba r region M54.16 ; Spondylosis without myelopathy or radiculopathy, lumbar region M47.816 ; Sacroiliitis, not elsewhere classified M46.1 ; Postlaminectomy syndrome, not elsewhere classified M96.1 ; Other intervertebral disc degeneration, lumbar region M51.36 ; Osseous stenosis of neural canal of lumbar region M99.33 ; 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 and longterm (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 of 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 Z79.891 [facility] [address] [place] [phone] 12/19/2023 Feng Stynowick Radiculopathy, lumba r region M54.16 [facility] [address] [place] [address] 12/27/2023 Feng Stynowick Radiculopathy, lumba r region M54.16 ; Sacroiliitis, not elsewhere classified M46.1 ; Spondylosis without myelopathy or radiculopathy, lumbar region M47.816 ; Postlaminectomy syndrome, not elsewhere classified M96.1 ; Other intervertebral disc degeneration, lumbar region M51.36 ; Osseous stenosis of neural canal of lumbar region M99.33 ; 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 and longterm (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 of 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 Z79.891 [facility] [address] [place] [phone] 01/02/2024 Feng Stynowick Sacroiliitis, not elsewhere classified M46.1 [facility] [address] [place] [phone] 01/25/2024 Feng Stynowick Radiculopathy, lumba r region M54.16 ; Sacroiliitis, not elsewhere classified M46.1 ; Spondylosis without myelopathy or radiculopathy, lumbar region M47.816 ; Postlaminectomy syndrome, not elsewhere classified M96.1 ; Other intervertebral disc degeneration, lumbar region M51.36 ; Osseous stenosis of neural canal of lumbar region M99.33 ; 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 and 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 helper termite (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 of 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 Z79.891 [facility] [address] [place] [phone] 01/29/2024 Feng Stynowick Radiculopathy, lumba r region M54.16 ; Sacroiliitis, not elsewhere classified M46.1 ; Spondylosis without myelopathy or radiculopathy, lumbar region M47.816 ; Postlaminectomy syndrome, not elsewhere classified M96.1 ; Other intervertebral disc degeneration, lumbar region M51.36 ; Osseous stenosis of neural canal of lumbar region M99.33 ; 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 and 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 helper 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 (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 of 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 Z79.891 [facility] [address] [place] [phone] 01/29/2024 Feng Stynowick Radiculopathy, lumba r region M54.16 [facility] [address] [place] [phone] 02/06/2024 Feng Stynowick Radiculopathy, lumba r region M54.16 ; Sacroiliitis, not elsewhere classified M46.1 ; Spondylosis without myelopathy or radiculopathy, lumbar region M47.816 ; Postlaminectomy syndrome, not elsewhere classified M96.1 ; Other intervertebral disc degeneration, lumbar region M51.36 ; Osseous stenosis of neural canal of lumbar region M99.33 ; 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 and 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 helper 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 (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 of 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 Z79.891 [facility] [address] [place] [phone] 02/16/2024 Feng Stynowick Radiculopathy, lumba r region M54.16 ; Intervertebral disc disorders with radiculopathy, lumbar region M51.16 and Osseous stenosis of neural canal of lumbar region M99.33 [facility] [address] [place] [phone] 02/19/2024 Feng Stynowick Radiculopathy, lumba r region M54.16 [facility] [address] [place] [address] 03/06/2024 Feng Stynowick Radiculopathy, lumba r region M54.16 ; Spondylosis without myelopathy or radiculopathy, lumbar region M47.816 ; Sacroiliitis, not elsewhere classified M46.1 ; Postlaminectomy syndrome, not elsewhere classified M96.1 ; Other intervertebral disc degeneration, lumbar region M51.36 ; Osseous stenosis of neural canal of lumbar region M99.33 ; 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 and 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 helper termite (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 of 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 Z79.891 [facility] [address] [place] [phone] 03/18/2024 Feng winifredchrissykaren [facility] [address] [facility] [place] [address] [place] [address] 03/26/2024 Fengespinoza [place] Spondylosis without myelopathy or radiculopathy, lumbar region M47.816 and Spondylosis without myelopathy or radiculopathy, lumbosacral region M47.817 [facility] [address] [facility] [place] [address] 03/27/2024 Feng winifredvikas ASSESSMENTS Encounter Date Diagnosis Assessment Notes Treatment Notes Treatment Clinical Notes 05/31/2023 Radiculopathy, lumbar region (ICD-10 - M54.16) [...] to fully comply with the above. The [place] PDMP were reviewed and were appropriate 07/24/2023 Other intervertebral disc degeneration, lumbar region (ICD-10 - M51.36) 07/24/2023 Radiculopathy, lumbar region (ICD-10 - M54.16) 05/31/2023 Sacroiliitis, not elsewhere classified (ICD-10 - [...] is agreeable to proceeding at this time. 10/24/2023 Radiculopathy, lumbar region (ICD-10 - M54.16) [...] to fully comply with the above. The [place] PDMP were reviewed and were appropriate 12/27/2023 Sacroiliitis, not elsewhere classified (ICD-10 - [...] to fully comply with the above. The [facility] PDMP were reviewed and were [...] to fully comply with the above. The [facility] PDMP were reviewed and were appropriate 01/29/2024 Radiculopathy, lumbar region (ICD-10 - M54.16) 02/06/2024 Radiculopathy, lumbar region (ICD-10 - M54.16) [...] to fully comply with the above. The [facility] PDMP were reviewed and were appropriate 02/06/2024 Sacroiliitis, not elsewhere classified (ICD-10 - M46.1) 03/26/2024 Spondylosis without myelopathy or radiculopathy, lumbar region (ICD-10 - M47.816) 03/26/2024 Spondylosis without myelopathy or radiculopathy, lumbosacral region [...] to fully comply with the above. The [place] PDMP were reviewed and were appropriate 07/31/2023 Radiculopathy, lumbar region (ICD-10 - M54.16) [...] to fully comply with the above. The [place] PD[place] were reviewed and were appropriate 07/31/2023 Sacroiliitis, not elsewhere classified (ICD-10 - M46.1) 07/11/2023 Radiculopathy, lumbar region (ICD-10 - M54.16) 06/30/2023 Radiculopathy, lumbar region (ICD-10 - M54.16) [...] to fully comply with the above. The [facility] PDMP were reviewed and were appropriate 06/30/2023 Sacroiliitis, not elsewhere classified (ICD-10 - M46.1) 06/05/2023 Sacroiliitis, not elsewhere classified (ICD-10 - M46.1) 05/02/2023 Spondylosis without myelopathy or radiculopathy, lumbar region (ICD-10 - M47.816) 05/02/2023 Radiculopathy, lumbar region (ICD-10 - M54.16) [...] to fully comply with the above. The [facility] PDMP were reviewed and were appropriate 04/14/2023 Radiculopathy, lumbar region (ICD-10 - M54.16) 04/06/2023 Spondylosis without myelopathy or radiculopathy, lumbar region (ICD-10 - M47.816) 04/06/2023 Radiculopathy, lumbar region (ICD-10 - M54.16) [...] to fully comply with the above. The [facility] PDMP were reviewed and were appropriate 03/06/2024 Radiculopathy, lumbar region (ICD-10 - M54.16) [...] to fully comply with the above. The 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 01/25/2024 Radiculopathy, lumbar region (ICD-10 - M54.16) [...] to fully comply with the above. The [place] PD[place] were reviewed and were appropriate 01/02/2024 Sacroiliitis, not elsewhere classified (ICD-10 - M46.1) 12/19/2023 Radiculopathy, lumbar region (ICD-10 - M54.16) 11/29/2023 Radiculopathy, lumbar region (ICD-10 - M54.16) [...] to fully comply with the above. The [place] PD[place] were reviewed and were appropriate 11/29/2023 Spondylosis without myelopathy or radiculopathy, lumbar region (ICD-10 - M47.816) 11/06/2023 Radiculopathy, lumbar region (ICD-10 - M54.16) 10/30/2023 Spondylosis without myelopathy or radiculopathy, lumbar region (ICD-10 - M47.816) 10/30/2023 Radiculopathy, lumbar region (ICD-10 - M54.16) [...] to fully comply with the above. The [facility] PDMP were reviewed and were appropriate 10/26/2023 Radiculopathy, lumbar region (ICD-10 - M54.16) 10/24/2023 Radiculopathy, lumbar region (ICD-10 - M54.16) 09/06/2023 Spondylosis without myelopathy or radiculopathy, lumbar region (ICD-10 - M47.816) 09/06/2023 Spondylosis without myelopathy or radiculopathy, 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) 08/28/2023 Radiculopathy, lumbar region (ICD-10 - M54.16) [...] to fully comply with the above. The [facility] PDMP were reviewed and were [...] agreeable to proceeding at this time. 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 10/30/2023 Sacroiliitis, not elsewhere classified (ICD-10 - M46.1) 03/06/2024 Sacroiliitis, not elsewhere classified (ICD-10 - M46.1) 11/29/2023 Sacroiliitis, not elsewhere classified (ICD-10 - M46.1) 01/25/2024 Sacroiliitis, not elsewhere classified (ICD-10 - M46.1) 02/16/2024 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) 04/06/2023 Sacroiliitis, not elsewhere classified (ICD-10 - M46.1) 05/02/2023 Sacroiliitis, not elsewhere classified (ICD-10 - M46.1) 06/30/2023 Spondylosis without myelopathy or radiculopathy, lumbar region (ICD-10 - M47.816) 07/31/2023 Spondylosis without myelopathy or radiculopathy, lumbar region (ICD-10 - M47.816) 09/27/2023 Sacroiliitis, not elsewhere classified (ICD-10 - M46.1) 02/06/2024 Spondylosis without myelopathy or radiculopathy, lumbar region (ICD-10 - M47.816) 01/29/2024 Sacroiliitis, not elsewhere classified (ICD-10 - M46.1) 12/27/2023 Spondylosis without myelopathy or radiculopathy, lumbar region (ICD-10 - M47.816) 10/24/2023 Spondylosis without myelopathy or radiculopathy, lumbar region (ICD-10 - M47.816) 05/31/2023 Spondylosis without myelopathy or radiculopathy, lumbar region (ICD-10 - M47.816) 07/24/2023 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) 10/24/2023 Sacroiliitis, not elsewhere classified (ICD-10 - M46.1) 05/31/2023 Postlaminectomy syndrome, not elsewhere classified (ICD-10 - M96.1) 12/27/2023 Postlaminectomy syndrome, not elsewhere classified (ICD-10 - M96.1) 01/29/2024 Spondylosis without myelopathy or radiculopathy, lumbar region (ICD-10 - M47.816) 02/06/2024 Postlaminectomy syndrome, not elsewhere classified (ICD-10 - M96.1) 06/30/2023 Postlaminectomy syndrome, not elsewhere classified (ICD-10 - M96.1) 07/31/2023 Postlaminectomy syndrome, not elsewhere classified (ICD-10 - M96.1) 09/27/2023 Postlaminectomy syndrome, not elsewhere classified (ICD-10 - M96.1) 05/02/2023 Postlaminectomy syndrome, not elsewhere classified (ICD-10 - M96.1) 04/06/2023 Postlaminectomy syndrome, not elsewhere classified (ICD-10 - M96.1) 03/06/2024 Postlaminectomy syndrome, not elsewhere classified (ICD-10 - M96.1) 01/25/2024 Spondylosis without myelopathy or radiculopathy, lumbar region (ICD-10 - M47.816) 10/30/2023 Postlaminectomy syndrome, not elsewhere classified (ICD-10 - M96.1) 11/06/2023 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) 11/29/2023 Postlaminectomy syndrome, not elsewhere classified (ICD-10 - M96.1) 08/28/2023 Postlaminectomy syndrome, not elsewhere classified (ICD-10 - M96.1) 08/28/2023 Other intervertebral disc degeneration, lumbar region (ICD-10 - M51.36) 11/29/2023 Other intervertebral disc degeneration, lumbar region (ICD-10 - M51.36) 10/30/2023 Other intervertebral disc degeneration, lumbar region (ICD-10 - M51.36) 03/06/2024 Other intervertebral disc degeneration, lumbar region (ICD-10 - M51.36) 01/25/2024 Postlaminectomy syndrome, not elsewhere classified (ICD-10 - M96.1) 04/06/2023 Other intervertebral disc degeneration, lumbar region (ICD-10 - M51.36) 06/30/2023 Other intervertebral disc degeneration, lumbar region (ICD-10 - M51.36) 05/02/2023 Other intervertebral disc degeneration, lumbar region (ICD-10 - M51.36) 07/31/2023 Other intervertebral disc degeneration, lumbar region (ICD-10 - M51.36) 02/06/2024 Other intervertebral disc degeneration, lumbar region (ICD-10 - M51.36) 09/27/2023 Other intervertebral disc degeneration, lumbar region (ICD-10 - M51.36) 01/29/2024 Postlaminectomy syndrome, not elsewhere classified (ICD-10 - M96.1) 12/27/2023 Other intervertebral disc degeneration, lumbar region (ICD-10 - M51.36) 10/24/2023 Postlaminectomy syndrome, not elsewhere classified (ICD-10 - M96.1) 05/31/2023 Other intervertebral disc degeneration, lumbar region (ICD-10 - M51.36) 05/31/2023 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) 10/24/2023 Other intervertebral disc degeneration, lumbar region (ICD-10 - M51.36) 12/27/2023 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) 02/06/2024 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) 01/29/2024 Other intervertebral disc degeneration, lumbar region (ICD-10 - M51.36) 06/30/2023 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) 09/27/2023 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) 07/31/2023 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) 05/02/2023 Osseous stenosis of neural canal of [...] of lumbar region (ICD-10 - M99.33) 08/28/2023 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) 10/30/2023 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) 01/25/2024 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) 11/29/2023 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) 03/06/2024 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) 04/06/2023 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) 07/31/2023 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) 05/02/2023 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) 06/30/2023 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) 02/06/2024 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 Dr. Hendrickson has reviewed and agrees [...] GOALS AND SAFETY CONCERNS HAVE BEEN ADDRESSED. JL initials KOBE. 09/27/2023 Other The above-named patient was evaluated [...] with Patient and Medical Decision Makin minutes 03/26/2024 Other The patient voiced understanding of the [...] SAFETY CONCERNS HAVE BEEN ADDRESSED. RN initials ___JW___ PLAN OF TREATMENT Pending Test Test Name Order Date MRI : Lumbar Spine with and without Cont rast (52191) 02/01/2022 MRI : Lumbar Spine with and without Cont rast (36519) 04/25/2022 XRAY right shoulder 09/09/2020 [facility] Results 01/03/2022 [facility] Results 03/29/2022 [facility] Results 09/16/2022 [facility] Results 06/01/2023 [facility] Results 08/28/2023 [facility] Results 11/29/2023 [facility] Results 03/06/2024 Next Appt Details Provider Name:Feng Olivo winifred vikas, 04/05/2024 10:00:00 AM, [address] [place], [address], Insurance Providers Payer Name Payer Address Payer Phone Subscriber Number Group Number Insured Name Patient Relationship to Insured Coverage Start Date Coverage End Date [employer] Claims [address] [address] [place] [phone] [id number] MIKE PADGETT Self - patient is the insured 8 MEDICAL (GENERAL) HISTORY Medical History History ICD Code Hypertension Stomach Ulcers Depression Insomnia GERD Anemia Asthma Migraine Surgical History Surgery Date(Month/Year) Pain Pump Removal 2011 Multiple Lumbar Surgeries
--- OUTSIDE RECORDS SUMMARY | 2024-04-01 15:06 | XMS_ITS | Clinical Summary ---
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
== END 2024-04-01 14:54 | disposition home or self-care (01) ==
PROVIDERS: PCP Nurse Practitioner Family; Visit Provider Nurse Practitioner Family
DX: R06.09 Other forms of dyspnea (principal); R05.9 Cough, unspecified
CPT/HCPCS: 71046

== ENCOUNTER 2024-04-02 06:04 | Outpatient (CLI) | payer MEDICARE, MEDICAID, SELFPAY ==
--- NOTE | 2024-04-01 09:17 | SUR.PREOP ---
Spoke with patient in regards to Givens capsule deployment that is scheduled for tomorrow 04/02/2024. Confirmed with patient that she did receive her instructions and that she does have a otr tanker truck driver to take her home after the deployment and to bring her back at 3pm, 04/02/2024, to remove the equipment.
--- NOTE | 2024-04-01 14:42 | P.PNAN_ITS ---
Anes - Initial Pre Proc Eval Procedure: Operation Date: 04/02/24 07:30 Proposed Procedures p Esophagogastroduodenoscopy with Given's capsule deployment - Félix Bird MD Date/Time: 04/01/24 14:42 Surgeon: Félix Bird MD Pre Op Diagnosis: GERD,Weight loss,anemia Patient Data Age: 68 Gender: F Height: 1.52 m Weight: 47.7 kg Allergies Allergy/AdvReac Type Severity Reaction Status Date / Time morphine Allergy Unknown itchy Verified 04/02/24 06:24 Home Medications ?Medication ?Instructions ?Recorded ?Confirmed ?Type hydrocodone 10 mg-acetaminophen 1 tablet PO Q4-6H PRN Pain 03/27/19 04/02/24 History 325 mg tablet tizanidine 4 mg capsule 4 mg PO TID PRN muscle cramping 02/01/21 04/02/24 History fluoxetine 40 mg capsule 80 mg (2 x 40 mg) PO DAILY #180 08/15/23 04/02/24 Rx caps cholecalciferol (vitamin D3) 50 2,000 unit PO DAILY #90 caps 12/18/23 04/02/24 Rx mcg (2,000 unit) capsule metoprolol succinate 25 mg 25 mg PO DAILY #90 tabs 01/29/24 04/02/24 Rx tablet,extended release 24 hr amlodipine 10 mg tablet 10 mg PO DAILY #90 tabs 02/09/24 04/02/24 Rx trazodone 100 mg tablet 300 mg (3 x 100 mg) PO QHS #270 02/12/24 04/02/24 Rx tabs Hand held Pulse oximeter #1 ea 02/28/24 04/01/24 Rx albuterol sulfate 90 mcg/actuation 1 puff inhalation Q4-6H PRN 02/28/24 04/02/24 Rx aerosol inhaler shortness of breath or wheezing #8.5 grams fluticasone 250 mcg-salmeterol 50 1 inh inhalation BID #60 ea 02/28/24 04/02/24 Rx mcg/dose blistr powdr for inhalation (Advair Diskus) ferrous sulfate 325 mg (65 mg 325 mg PO BID 03/13/24 04/02/24 History iron) tablet losartan 100 1 tablet PO DAILY #90 tabs 03/13/24 04/02/24 Rx mg-hydrochlorothiazide 25 mg tablet omeprazole 20 mg capsule,delayed 20 mg PO BID 3 months #180 caps 03/14/24 04/02/24 Rx release Patient hx anesthesia problems: none Family hx anesthesia problems: none Results Review: All pre-operative results and documents have been reviewed as part of the pre- operative evaluation. [facility] Past Medical History Medical History GERD (gastroesophageal reflux disease) Dyspnea on exertion Aortic stenosis CKD stage 3b, GFR 30-44 ml/min Duodenal stricture Personal history of colonic polyps Acute kidney injury (~01/2024) RICO (iron deficiency anemia) Age related osteoporosis Hypertension Depression Essential hypertension GERD without esophagitis Insomnia Other intervertebral disc degeneration, lumbosacral region Surgical History Surgical History Dilation of duodenum 08/2023, 12/2023 History of esophageal dilatation (~12/2023) History of lumbar spinal fusion 1999, 2000, 2000, 2002, 2004 follows with pain management Family History Family History Mother Diabetes mellitus Breast cancer Heart failure Father Heart valve replaced Sibling Diabetes mellitus Social History Social History Social History: Surrogate medical decision maker: uncle León. Code status: Full code. Smoking packs per day: 0.5 Smoking cigarettes per day: 10.0 Years smoked: 15 Smoking pack-years: 7.50 Smoking status: Former smoker Tobacco type: cigarettes Second hand tobacco smoke exposure: No Smoking end date: 02/20/87 Alcohol intake: never Substance use: never Substance use type: does not use Do You Feel Safe in your Home?: Yes Lack of Transportation: No Lack of Food: Never True Current Housing: I Have Housing Concerned About Future Housing: No Difficulty Paying Gas/Electric Bills: No Difficulty Paying for Meds: No Currently Unemployed: No Education: High School Diploma/GED Difficulty w/ Childcare or Family Care: No Living arrangements: with family Additional living arrangements comments: lives w/ Uncle Occupation/Education: other Additional occupation/education comments: Disabled d/t back injury Spiritual care concerns: No Comments VR 84 Anes - Eval Final PreProcedure Day of Procedure 04/01/24 14:42 Patient weight: normal Results Review: All pre-operative results and documents have been reviewed as part of the pre- operative evaluation. Informed Consent: The patient's anesthetic plan and its attendant risks and benefits were discussed with the patient/family/POA. Questions were solicited and answers provided to the satisfaction of the patient/family/POA.
--- OUTSIDE RECORDS SUMMARY | 2024-04-02 06:07 | XMS_ITS | Clinical Summary ---
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 Gender Identity Not on file Sexual Orientation Not on file Last Filed Vital Signs Vital Sign Reading Time Taken Comments Blood Pressure 120/64 01/04/2017 12:58 PM PAPER CUP HANDLE MACHINE OPERATOR Pulse 65 01/04/2017 12:58 PM PAPER CUP HANDLE MACHINE OPERATOR Temperature 36.5 C (97.7 F) 01/04/2017 12:58 PM PAPER CUP HANDLE MACHINE OPERATOR Respiratory Rate 18 01/04/2017 12:58 PM PAPER CUP HANDLE MACHINE OPERATOR Oxygen Saturation 97% 01/04/2017 12:58 PM PAPER CUP HANDLE MACHINE OPERATOR Inhaled Oxygen Concentration - - Weight 62.6 kg (138 lb) 01/04/2017 12:58 PM PAPER CUP HANDLE MACHINE OPERATOR Height 152.4 cm (5') 01/04/2017 12:58 PM PAPER CUP HANDLE MACHINE OPERATOR Body Mass Index 26.95 01/04/2017 12:58 PM PAPER CUP HANDLE MACHINE OPERATOR Plan of Treatment Health Maintenance Due Date [...] contacted. Electronically signed by: Nathan clark/suzie:05/15/2017 14:18:37 Police Liaison: Cher CARPENTER(Tigre)([place]), [facility] letter sent: Additional Imaging Reading location: [facility] BI-RADS: 0 Additional Imaging Evaluation Needed Procedure [...] signed by: Nathan Rojas M.D. bs/suzie:05/15/2017 14:18:37 Police Liaison: Cher CARPENTER(Tigre)(M), [facility] letter sent: Additional Imaging Reading location: [facility] BI-RADS: 0 Additional Imaging Evaluation Needed Figueroa Britt MD IMG MAMMO ORDERABLES Final Result from Last 3 Months or Most Recently Relevant to Health Maintenance Insurance MEDICARE C [employer]
--- OUTSIDE RECORDS SUMMARY | 2024-04-02 06:07 | XMS_ITS ---
Author Organization [facility] Address [address] [place] [address] Care Team Providers Care Wire Bender Name Role Phone Anabella CARMEN, [facility] Primary Care Provider Unavailable Feng Hendrickson Unavailable [phone] REASON FOR VISIT Post Op Call Encounters Encounter Location Date Provider Diagnosis [facility] [address] [facility] [address] [facility] [place] [id number] 03/27/2024 Feng Hendrickson PLAN OF TREATMENT Next Appt Details Provider Name:Feng bean, 04/05/2024 10:00:00 AM, [address] [facility] [place] [place], [address],
--- OUTSIDE RECORDS SUMMARY | 2024-04-02 06:07 | XMS_ITS ---
Author Organization [facility] Address [address] [place] [address] [place] [address] Care Team Providers Care Instrument Sterilizer Name Role Phone Anabella CARMEN, Joy Primary Care Provider Unavailable Feng Hendrickson Unavailable [phone] ALLERGIES Allergen (clinical drug ingredient) Drug/Non Drug Allergy documented on EMR Reaction Allergy Type Onset Date Status aripiprazole Aripiprazole nausea and vomiting Drug Allergy Active clindamycin Clindamycin diarrhea Drug Allergy Act lucian fentanyl Fentanyl nausea Drug Allergy Active morphine Morphine rash/itching Drug Allergy Acti ve REASON FOR VISIT Right > Left Low Back Pain MEDICATIONS Medication SIG (Take, Route, Frequency, Duration) [...] muscle spasm for 30 days 12/13/2019 Active CVS D3 50 MCG (1999 UT) TAKE 1 CAPSULE B Y MOUTH EVERY DAY Oral for 90 Active rOPINIRole HCl 0.5 MG 1 tablet 1 to 3 ho urs before bedtime Orally Once a day Active Voltaren 1 % apply 4 grams to ij nful joint(s) Transdermal 4x/day as needed for [...] 1 tablet Oral Once a day Active ZyPREXA 5 MG 1 tablet Orally Once a day Active amLODIPine Besylate 5 MG 1 tablet Oral Once a day Active ProAir HFA 108 (90 Base) MCG/ACT 2 puffs as needed Inhalation every 6 hrs 09/25/2017 Active Vitamin D3 1000 UNIT 1 capsule Orally On 09/25/2017 Active Omeprazole 20 MG 1 capsule 30 minutes before morning meal Oral Once a day Active FLUoxetine HCl 40 MG 1 capsule Oral Once a day Active traZODone HCl 100 MG 1 tablet at bedtime Oral Once a day Active VITAL SIGNS Blood pressure systolic 136 mm Hg 03/26/19 25 Blood pressure diastolic 92 mm Hg 025 Heart Rate 73 /min 03/26/2024 Respiratory Rate 16 /min 03/26/2024 Height 60 in 03/26/2024 Weight 138 lbs 03/26/2024 BMI 26.95 kg/m2 03/26/2024 Post Op Vitals: BP 146/81 , HR 74 , RR 16, Spo2 97%Discharged home, ambulatory, and in no acute distress. Encounters Encounter Location Date Provider Diagnosis [facility] [address] [place] [address] [place] [address] 03/26/2024 Feng Hendrickson Spondylosis without myelopathy or radiculopathy, lumbar region M47.816 and Spondylosis without myelopathy or radiculopathy, lumbosacral region M47.817 ASSESSMENTS Encounter Date Diagnosis Assessment Notes Treatment Notes Treatment Clinical Notes 03/26/2024 Spondylosis without myelopathy or radiculopathy, lumbar region (ICD-10 - M47.816) 03/26/2024 Spondylosis without myelopathy or radiculopathy, 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) 03/26/2024 Other The patient voiced understanding of [...] ADDRESSED. RN initials ___JW___ PLAN OF TREATMENT Treatment Notes Assessment Notes Other The patient voiced understanding of the [...] CONCERNS HAVE BEEN ADDRESSED. RN initials ___JW___ Next Appt Details Follow Up: F/U 04/05, Reason: Provider Name:Feng bean, 04/05/2024 10:00:00 AM, [address] [place], [address], Procedure Notes * Category Sub-Category Detail Notes Radiofrequency Ablation Procedure: L3-5 Med ial Branch Nerve Radiofrequency Ablation Location: Bilateral Anesthesia: Local without IV sed ation Operative Technique: After the risks, be nefits, alternative treatment options and potential complications related to the procedure were discussed, informed consent was obtained. The specific risks of this procedure including pain, bleeding, [...] agreeable to proceeding at this time. The patient was placed in the prone position on the fluoroscopy table. Standard ASA monitors were applied. The back was prepped and draped in the usual sterile fashion with chlorhexidine 2%/IPA 70%. The bilateral L4 pedicles were identified with x-ray and the c-arm was obliqued 45 degrees to the selected side superimposing the L4 pedicle on the L4 vertebral body. The skin and subcutaneous structures above it were anesthetized with 3 mL of 1% Preservative-Free lidocaine through a 25 g 1.5-inch needle. A 20-gauge coude 10 cm radiofrequency needle with a 10 mm active tip was inserted in a gun barrel fashion to the junction of the superior articular process and transverse process of L4 until periosteum was contacted. The bilateral L3 medial branch nerves were stimulated with negative motor stimulation at 2 Hz up to 3.0 V. A solution of 10 mg of Preservative-Free Dexamethasone (10 mg/mL), plus 5 mL of 1% Preservative-Free lidocaine was mixed. After negative aspiration for blood, air or CSF, 1 mL of this solution was injected. The bilateral L3 medial branch nerves were lesioned at 80 degrees Celsius for 90 seconds. The exact same procedure was repeated at the bilateral L4 medial branch nerves (at the junction of the superior articular process and transverse process of L5) and the bilateral L5 dorsal rami (at the junction of the superior articular process of S1 and the sacral ala) with no motor stimulation into the lower extremity at 2 Hz up to 3.0 V. The needles were then removed, the skin was cleaned and band-aids were placed over the puncture sites. The patient tolerated the procedure well, was able to ambulate without difficulty and was monitored for 20 minutes. The patient remained hemodynamically and neurologically stable. No complications were observed. Postoperative instructions were reviewed with the patient. The patient was discharged home in good condition with a wheelchair driver. X- ray time: 41 seconds Safe Surgery Practices First Critical Point Ashley ent identified by verbal and ID band. Surgical site marked. Assessement of allergies, airway and aspiration risk. Assessed if patient is on anticoagulant. Operataive Consent signed. Patient has discussed procedure with physician , Patient identified by verbal and ID band. Surgical site marked. Assessement of allergies, airway and aspiration risk. Assessed if patient is on anticoagulant. Operataive Consent signed. Patient has discussed procedure with physician ANA MICHAUD 03/26/2024 10:12:19 AM > Second Critical Point TIME OUT: Confirm patient identity, procedure and surgical incision site. Patient in proper position and safety straps placed appropriately. ASA score: _2_ Fire Risk Score:_2_ . Alcohol based prep solution had significant time for fumes to dissipate. Confirm surgical receiving team member and roles. Anticipated critical events. Essential imaging displayed as appropriate. Fluoroscopy precautions taken if applicable. Equipment and supplies in room. Verify patient is not if applicable , ANA MICHAUD 03/26/2024 10:12:22 AM > Third Critical Point SAFE SURGERY PRACTI GIACOMO-POST: Complete count of surgical instruments and accessories. Identify nash patient concerns for recovery and management of the patient. Patient remains free from injury related to surgery. The patient tolerated the procedure well and there were no complications. The patient was taken to the recovery area. The patient remained in stable condition with no apparent complications. Vital signs stable. Injection/procedure/surgical site clean, dry and intact. Post procedure discharge instructions were give to the patient and a follow up appointment was confirmed. The patient was discharged with information on how to reach the clinic at anytime for questions or concerns. Patient discharged ambulatory. Patient denies complaints or questions ANA MICHAUD 03/26/2024 10:59:41 AM > Progress Notes * Examination Category Sub-Category Detail Notes Examination/ Pre-Anesthesia Assessment General: The patient is alert and leeanna ented X 3 in moderate distress secondary to pain HEENT: Normocephalic, atrau matic. PERRL. The oropharynx is clear Neck: There is full range of motion of the cervical spine Heart: Regular rate and rhy thm Chest: Clear to auscultatio n bilaterally Abdomen: Soft and benign Musculoskeletal and Extremities: There i s TTP over the thoracic paraspinous muscles bilaterally. There is tenderness to palpation over the bilateral L2-3 through L5-S1 facet joints. Extension and lateral rotation of the lumbar spine reproduces the patient's typical axial low back pain. Gonzalo's, Gaenslen's and Orleans's tests are positive bilaterally. There is severe tenderness to palpation over the bilateral sacroiliac joints. There is tenderness to palpation over the bilateral lumbar paraspinal muscles and palpable myofascial trigger points throughout. There is weakness and atrophy of the bilateral lumbar paraspinal muscles Neurological: There is positive st raight leg raising bilaterally for reproduction of pain down the bilateral L4 and L5 dermatomes at 45 degrees Skin: Clean, dry, intact Psychiatric: Mood and affect are normal History and Physical Notes * HPI (History of Present Illness) Category Sub-Category Detail Notes Pain Management Radiographic Imaging MRI without contrast 01/24/19: L3-4: Broad- based disc bulge and bilateral facet arthropathy. Mild right neuroforaminal stenosis. L4-L5: Broad-based disc bulge and bilateral facet arthropathy with mild central canal stenosis and moderate right and mild left neuroforaminal stenosis. L5-S1: A broad-based disc bulge and bilateral facet arthropathy. Mild right and minimal left neuroforaminal stenosis. Chronic T12 compression fracture. MRI Lumbar Spine from 05/04/2022 shows L4-5 disc protrusion and facet arthropathy in moderate narrowing of the right neural foramen. Assessment and Follow-up: Follow-up Plan documen gale:: Yes MIPS Quality 2020: MIPS Documented:: Compliant
--- OUTSIDE RECORDS SUMMARY | 2024-04-02 06:07 | XMS_ITS ---
Author Organization [facility] Address [address] [facility] [place] [address] Care Team Providers Care Loading Machine Operator Helper Name Role Phone Anabella CARMEN, [facility] Primary Care Provider Unavailable Feng Hendrickson Unavailable [phone] REASON FOR VISIT Historical data Encounters Encounter Location Date Provider Diagnosis [facility] [address] [facility] [place] [address] 03/18/2024 Feng Hendrickson PLAN OF TREATMENT Next Appt Details Provider Name:Feng bean, 04/05/2024 10:00:00 AM, [address] [facility] [place], [address],
--- OUTSIDE RECORDS SUMMARY | 2024-04-02 06:07 | XMS_ITS | Clinical Summary ---
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
[2024-04-02 06:25] VITALS: BP 174/84; PULSE 80; RESP 18; TEMP 36.8; O2SAT 100
[2024-04-02] MEDS: LACTATED RINGERS 1,000 ML 150 ML IV CONT (06:39)
--- NOTE | 2024-04-02 06:49 | WPDANESEPPF ---
Anes - Initial Pre Proc Eval Procedure: Operation Date: 04/02/24 07:30 Proposed Procedures p Esophagogastroduodenoscopy with Given's capsule deployment - Félix Bird MD Date/Time: 04/02/24 06:49 Surgeon: Félix Bird MD Pre Op Diagnosis: GERD,Weight loss,anemia Patient Data Age: 68 Gender: F Height: 1.52 m Weight: 47.7 kg Last Vital Signs Temp 98.2 F 04/02/24 06:25 Pulse 80 04/02/24 06:25 Resp 18 04/02/24 06:25 BP 174/84 H 04/02/24 06:25 Pulse Ox 100 04/02/24 06:25 O2 Del Method Room Air 04/02/24 06:25 Allergies Allergy/AdvReac Type Severity Reaction Status Date / Time morphine Allergy Unknown itchy Verified 04/02/24 06:24 Home Medications ?Medication ?Instructions ?Recorded ?Confirmed ?Type hydrocodone 10 mg-acetaminophen 1 tablet PO Q4-6H PRN Pain 03/27/19 04/02/24 History 325 mg tablet tizanidine 4 mg capsule 4 mg PO TID PRN muscle cramping 02/01/21 04/02/24 History fluoxetine 40 mg capsule 80 mg (2 x 40 mg) PO DAILY #180 08/15/23 04/02/24 Rx caps cholecalciferol (vitamin D3) 50 2,000 unit PO DAILY #90 caps 12/18/23 04/02/24 Rx mcg (2,000 unit) capsule metoprolol succinate 25 mg 25 mg PO DAILY #90 tabs 01/29/24 04/02/24 Rx tablet,extended release 24 hr amlodipine 10 mg tablet 10 mg PO DAILY #90 tabs 02/09/24 04/02/24 Rx trazodone 100 mg tablet 300 mg (3 x 100 mg) PO QHS #270 02/12/24 04/02/24 Rx tabs Hand held Pulse oximeter #1 ea 02/28/24 04/01/24 Rx albuterol sulfate 90 mcg/actuation 1 puff inhalation Q4-6H PRN 02/28/24 04/02/24 Rx aerosol inhaler shortness of breath or wheezing #8.5 grams fluticasone 250 mcg-salmeterol 50 1 inh inhalation BID #60 ea 02/28/24 04/02/24 Rx mcg/dose blistr powdr for inhalation (Advair Diskus) ferrous sulfate 325 mg (65 mg 325 mg PO BID 03/13/24 04/02/24 History iron) tablet losartan 100 1 tablet PO DAILY #90 tabs 03/13/24 04/02/24 Rx mg-hydrochlorothiazide 25 mg tablet omeprazole 20 mg capsule,delayed 20 mg PO BID 3 months #180 caps 03/14/24 04/02/24 Rx release Patient hx anesthesia problems: none Family hx anesthesia problems: none Results Review: All pre-operative results and documents have been reviewed as part of the pre-operative evaluation. [facility] Past Medical History Medical History GERD (gastroesophageal reflux disease) Dyspnea on exertion Aortic stenosis CKD stage 3b, GFR 30-44 ml/min Duodenal stricture Personal history of colonic polyps Acute kidney injury (~01/2024) RICO (iron deficiency anemia) Age related osteoporosis Hypertension Depression Essential hypertension GERD without esophagitis Insomnia Other intervertebral disc degeneration, lumbosacral region Surgical History Surgical History Dilation of duodenum 08/2023, 12/2023 History of esophageal dilatation (~12/2023) History of lumbar spinal fusion 1999, 2000, 2000, 2002, 2004 follows with pain management Family History Family History Mother Diabetes mellitus Breast cancer Heart failure Father Heart valve replaced Sibling Diabetes mellitus Social History Social History Social History: Surrogate medical decision maker: Deandre Chiu, uncle. Code status: Full code. Smoking packs per day: 0.5 Smoking cigarettes per day: 10.0 Years smoked: 15 Smoking pack-years: 7.50 Smoking status: Former smoker Tobacco type: cigarettes Second hand tobacco smoke exposure: No Smoking end date: 02/20/87 Alcohol intake: never Substance use: never Substance use type: does not use Do You Feel Safe in your Home?: Yes Lack of Transportation: No Lack of Food: Never True Current Housing: I Have Housing Concerned About Future Housing: No Difficulty Paying Gas/Electric Bills: No Difficulty Paying for Meds: No Currently Unemployed: No Education: High School Diploma/GED Difficulty w/ Childcare or Family Care: No Living arrangements: with family Additional living arrangements comments: lives w/ Uncle Occupation/Education: other Additional occupation/education comments: Disabled d/t back injury Spiritual care concerns: No Anes - Eval Final PreProcedure Day of Procedure 04/02/24 06:49 Patient weight: normal and thin Lungs: normal air movement Airway: Mallampati scale class 1 Neurological: alert and oriented Last oral intake: >/= 8 hours ASA classification: III Emergent: no Anesthetic plan: proceed Anesthesia type and monitoring: general GIVS and standard monitoring Results Review: All pre-operative results and documents have been reviewed as part of the pre-operative evaluation. Dysphagia and anemia, Hgb 9. Now for capsule endoscopy. Mild to mod w LVEF 60%, CKD stage 3b. HTN, hyperlipidemia. Informed Consent: The patient's anesthetic plan and its attendant risks and benefits were discussed with the patient/family/POA. Questions were solicited and answers provided to the satisfaction of the patient/family/POA.
--- NOTE | 2024-04-02 07:28 | WPDHPUPDATE1 ---
History and Physical Update Update Date/Time: 04/02/24 07:28 History and Physical has been reviewed, including an updated exam of the patient. There are NO changes in the patient's condition. Risks, benefits, and alternatives have been discussed and questions answered. Patient agrees to proceed with procedure.
[2024-04-02 07:44] VITALS: BP 158/74; PULSE 67; RESP 23; O2SAT 100
[2024-04-02 07:54] VITALS: BP 160/78; PULSE 71; RESP 23; O2SAT 100
[2024-04-02 08:04] VITALS: BP 172/77; PULSE 69; RESP 18; O2SAT 100
--- NOTE | 2024-04-02 15:02 | SUR.PHASEII ---
Patient returned to the GI Lab at 1500 for recorder box removal. Patient voiced no complaints. States they have understanding of instructions. Patient left ambulatory. The recorder and belt seemed somewhat out of place.
== END 2024-04-02 08:18 | disposition home or self-care (01) ==
PROVIDERS: PCP Nurse Practitioner Family; Referring Provider Nurse Practitioner Family; Visit Provider Internal Medicine Gastroenterology
PROC: 0DJ08ZZ Inspection of Upper Intestinal Tract, Via Natural or Artificial Opening Endoscopic (ICD-10-PCS; principal; 2024-04-02 07:30)
DX: Z01.818 Encounter for other preprocedural examination (principal); K21.9 Gastro-esophageal reflux disease without esophagitis; R63.4 Abnormal weight loss; Z68.21 Body mass index [BMI] 21.0-21.9, adult; D50.9 Iron deficiency anemia, unspecified
CPT/HCPCS: 91110; J2003; J2704; J7120

== ENCOUNTER 2024-04-24 12:52 | Outpatient (CLI) | payer MEDICARE, MEDICAID, SELFPAY ==
--- OUTSIDE RECORDS SUMMARY | 2024-04-24 14:09 | XMS_ITS ---
Author Organization [facility] Address [address] [facility] [place] [address] Care Team Providers Care Qa Engineer Name Role Phone Anabella CARMEN, [facility] Primary Care Provider Unavailable Feng Hendrickson Unavailable [phone] REASON FOR VISIT Post Op Call Encounters Encounter Location Date Provider Diagnosis [facility] [address] [facility] [place] [address] 03/27/2024 Feng Hendrickson PLAN OF TREATMENT Next Appt Details Provider Name:Feng bean, 05/03/2024 10:00:00 AM, [address] [facility] [place], [address],
--- OUTSIDE RECORDS SUMMARY | 2024-04-24 14:09 | XMS_ITS | Clinical Summary ---
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 Gender Identity Not on file Sexual Orientation Not on file Last Filed Vital Signs Vital Sign Reading Time Taken Comments Blood Pressure 120/64 01/04/2017 12:58 PM DRUM BARKER OPERATOR Pulse 65 01/04/2017 12:58 PM DRUM BARKER OPERATOR Temperature 36.5 C (97.7 F) 01/04/2017 12:58 PM DRUM BARKER OPERATOR Respiratory Rate 18 01/04/2017 12:58 PM DRUM BARKER OPERATOR Oxygen Saturation 97% 01/04/2017 12:58 PM DRUM BARKER OPERATOR Inhaled Oxygen Concentration - - Weight 62.6 kg (138 lb) 01/04/2017 12:58 PM DRUM BARKER OPERATOR Height 152.4 cm (5') 01/04/2017 12:58 PM DRUM BARKER OPERATOR Body Mass Index 26.95 01/04/2017 12:58 PM DRUM BARKER OPERATOR Plan of Treatment Health Maintenance Due Date Last Done Comments DEXA Bone Density 1955 Hepatitis C Virus (HCV) Screening 1955 TdaP Immunization 1955 Colonoscopy 05/13/1999 Colorectal Cancer Screening 05/13/1999 Cologuard 2004 Immunochemical Fecal Occult Blood 2004 Pneumococcal Immunization (50+ years) (1 of 1 - PCV) 2004 Zoster Immunization (1 of 2) 2004 Influenza Immunization (#1) 10/22/202312/21, 12/23/2011, 12/21/2010, Additional history exists SARS-COV-2 Immunization ( season) 2023 05/22/2020, 05/01/2020 Respiratory Syncytial Virus (RSV) Immunization (Adult) (1 - 1-dose 75+ series) 2029 Mammogram Discontinued 2017 Hepatitis B Immunization Aged Out No longer [...] contacted. Electronically signed by: Nathan clark/suzie:05/15/2017 14:18:37 Outboard Motor Assembler: Cher CARPENTER(Tigre)(M), [facility] letter sent: Additional Imaging Reading location: [facility] BI-RADS: 0 Additional Imaging Evaluation Needed [...] contacted. Electronically signed by: Nathan clark/suzie:05/15/2017 14:18:37 Outboard Motor Assembler: Cher CARPENTER(Tigre)(M), [facility] letter sent: Additional Imaging Reading location: [facility] BI-RADS: 0 Additional Imaging Evaluation Needed Figueroa Britt MD IMG MAMMO ORDERABLES Final Result from Last 3 Months or Most Recently Relevant to Health Maintenance Insurance MEDICARE C HU[employer]
--- OUTSIDE RECORDS SUMMARY | 2024-04-24 14:09 | XMS_ITS | Clinical Summary ---
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
--- OUTSIDE RECORDS SUMMARY | 2024-04-24 14:10 | XMS_ITS ---
Author Organization [facility] Address [address] [place] [address] [place] [address] Care Team Providers Care Salesperson Hosiery Name Role Phone Anabella CARMEN, Joy Primary Care Provider Unavailable Feng Hendrickson Unavailable [phone] ALLERGIES Allergen (clinical drug ingredient) Drug/Non Drug [...] distress. Encounters Encounter Location Date Provider Diagnosis [facility] [address] [place] [address] [place] [address] 03/26/2024 Feng Hendrickson Spondylosis without myelopathy or [...] Up: F/U 04/05, Reason: Provider Name:Feng bean, 05/03/2024 10:00:00 AM, [address] [place], [address], Procedure Notes * Category Sub-Category Detail Notes [...] discharged home in good condition with a electric lift truck driver. X- ray time: 41 seconds Safe [...] time for fumes to dissipate. Confirm surgical steam train driver and roles. Anticipated critical events. Essential imaging [...] axial low back pain. Gonzalo's, Gaenslen's and Fertile's tests are positive bilaterally. There is severe [...]
--- OUTSIDE RECORDS SUMMARY | 2024-04-24 14:10 | XMS_ITS ---
Author Organization [facility] Address [address] [place] [address] VIDHYA Johnson [address] Care Team Providers Care Non Profit Director Name Role Phone Anabella CARMEN, Joy Primary Care Provider Unavailable Feng Hendrickson Unavailable [phone] ALLERGIES Allergen (clinical drug ingredient) Drug/Non Drug Allergy documented on EMR Reaction Allergy Type Onset Date Status aripiprazole Aripiprazole nausea and vomiting Drug Allergy Active clindamycin Clindamycin diarrhea Drug Allergy Act lucian fentanyl Fentanyl nausea Drug Allergy Active morphine Morphine rash/itching Drug Allergy Acti ve REASON FOR VISIT Follow Up, Right > Left Low Back Pain, Right = Left Lower Extremity Pain MEDICATIONS Medication SIG (Take, Route, Frequency, Duration) Notes Start Date End Date Status FLUoxetine HCl 40 MG 1 capsule Oral Once a day Active traZODone HCl 100 MG 1 tablet at bedtime Oral Once a day Active tiZANidine HCl 4 MG 1 tablet as needed O ral 3 x day muscle spasm for 30 days 12/13/2019 Active HYDROcodone-Acetaminophen 10-325 MG 1 tablet Orally every 4 to 6 hrs as needed for severe pain (max 5x/day) for 30 days 04/05/2024 Active Metoprolol Succinate ER 25 MG TAKE 1 TABLET BY MOUTH EVERY DAY Oral for 90 Active Voltaren 1 % apply 4 grams to ji nful joint(s) Transdermal 4x/day as needed for pain for 30 days Active Narcan 4 MG/0.1ML 1 actuation in one n ostril x1, Nasally 2-3 minutes as needed until the patient is responsive or EMS arrives Active Amphetamine-Dextroamphetam ine 20 MG TAKE 1 TABLET BY MOUTH EVERY DAY Oral for 30 Active hydrOXYzine HCl 25 MG TAKE 1 TABLET BY M OUT THREE TIMES A DAY NEEDED FOR ANXIETY Oral for 10 Active Ferrous Sulfate 325 (65 Fe) MG 325 MG ORALLY TWICE A DAY Oral for 90 Active rOPINIRole HCl 0.5 MG 1 tablet 1 to 3 ho urs before bedtime Orally Once a day Active Lidocaine-Prilocaine 2.5-2.5 % as directed External Active Fluticasone Propionate 50 MCG/ACT 1 spray in each nostril Nasal Twice a day Active Losartan Potassium 25 MG 1 tablet Oral Once a day Active CVS D3 50 MCG (2000 UT) TAKE 1 CAPSULE B Y MOUTH EVERY DAY Oral for 90 Active Omeprazole 20 MG 1 capsule 30 minutes before morning meal Oral Once a day Active ProAir HFA 108 (90 Base) MCG/ACT 2 puffs as needed Inhalation every 6 hrs 09/25/2017 Active Vitamin D3 1000 UNIT 1 capsule Orally On 09/25/2017 Active ZyPREXA 5 MG 1 tablet Orally Once a day Active amLODIPine Besylate 5 MG 1 tablet Oral Once a day Active SOCIAL HISTORY Tobacco Use: Social History Observation Description Date Details (start date - stop date) Former Smoker NA - NA Sex Assigned At : Social History Observation Description Sex Assigned At Unknown Tobacco Use/Smoking Question Answer Notes Are you a former smoker How long has it been since you last smoked? > 10 years VITAL SIGNS Blood pressure systolic 147 mm Hg 04/05/19 25 Blood pressure diastolic 84 mm Hg 025 Heart Rate 63 /min 04/05/2024 Respiratory Rate 18 /min 04/05/2024 Height 60 in 04/05/2024 Weight 138 lbs 04/05/2024 BMI 26.95 kg/m2 04/05/2024 Encounters Encounter Location Date Provider Diagnosis [facility] [address] [facility] [place] [address] [place] [address] 04/05/2024 Feng Hendrickson Radiculopathy, lumba r region M54.16 ; Spondylosis without myelopathy or radiculopathy, lumbar region M47.816 ; Sacroiliitis, not elsewhere classified M46.1 ; Postlaminectomy syndrome, not elsewhere classified M96.1 ; Other intervertebral disc degeneration, lumbar region M51.36 ; 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 The [place] PDMP were reviewed and were appropriate Other The above-named patient was evaluated in [...] with Patient and Medical Decision Makin minutes Next Appt Details Follow Up: 4 Weeks OPV, Reas on: Provider Name:Feng Olivo winifred bean, 05/03/2024 10:00:00 AM, [address] [place], [address], Progress Notes * Examination Category Sub-Category Detail [...] axial low back pain. Gonzalo's, Gaenslen's and Drums's tests are positive bilaterally. There is severe [...]
--- NOTE | 2024-04-25 10:27 | WPDPFTINT ---
PFT Procedure Performed PFT Procedure Performed Spirometry with Pre/Post Bronchodilator Plethysmography (Lung Vol) Diffusing Cap (DLCO) Flow Vol Loop PFT Interpretation Lung volumes were measured with the body plethysmography method. Lung volumes are unremarkable. Spirometry showed normal expiratory flow rates and a normal FEV1 to FVC ratio of 69 %. Following administration of a bronchodilator there was no significant increase in expiratory flow rates. Lung diffusion capacity is within the normal range at 70% predicted. The flow-volume loop is unremarkable. Impression: Spirometry, lung volumes, lung diffusion capacity all within the normal range.
== END 2024-04-24 12:53 | disposition home or self-care (01) ==
LOC: ANHPFT 12:54
PROVIDERS: PCP Family Medicine; Visit Provider Nurse Practitioner Family
DX: R06.09 Other forms of dyspnea (principal)
CPT/HCPCS: 94060; 94726; 94729

== ENCOUNTER 2024-05-31 11:24 | Outpatient (CLI) | payer MEDICARE, SELFPAY ==
--- OUTSIDE RECORDS SUMMARY | 2024-05-31 11:50 | XMS_ITS | Clinical Summary ---
Author Organization [facility] Address [facility] [place] [address] Care Team Providers Care Looping Inspector Name Role Phone Dolly Grimes PHOTOGRAPHER PORTRAIT Primary Care Provider [phone] Encounters Date Type Department Care Team Description 05/21/2024 9:00 AM CDT - 05/21/2024 11:59 PM CDT Hospital Encounter [facility] MRI [address] [place] [address] Félix Galindo MD Discharge Disposition: Home or Self Care (Routine Discharge) 05/21/2024 Travel from Last 3 Months Social History Tobacco Use Types Packs/Day Years Used Date Smoking Tobacco: Never Assessed Comments Unknown Sex and Gender Information Value Date Recorded Sex Assigned at Female 04/18/2024 4: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 Legal Sex Female 4:08 PM MIXER OPERATOR Gender Identity Not on file Sexual Orientation Not on file Plan of Treatment Health Maintenance Due Date Last Done Comments Colorectal Cancer Screening Colonoscopy (10 Years) 1954 Hepatitis C 1972 Zoster Vaccines (1 of 2) 2004 Annual Medicare Wellness Visit 05/13/2019 Dexa Scan (General) 05/13/2019 09/01/2011 Mammogram Screening 05/13/2019 2017, 09/01/2014 COVID-19 Vaccine (2023-2 5 season) 2023 05/22/2020, 05/01/2020 DTaP, Tdap and Td Vaccines ( 2 - Td or Tdap) 12/05/2023 12/04/2013, 06/09/2005 RSV Immunization or 60+ Years (1 - 1-dose 75+ series) 2029 Pneumococcal Vaccine: 65+ Years Completed 04/05/2024, 08/27/2014 Meningococcal B Vaccine Aged Out No l onger eligible based on patient's age to complete this topic Meningococcal Vaccine Aged Out No cruzito timothy eligible based on patient's age to complete this topic RSV Immunizations Under 20 Months Aged Out No longer eligible b ased on patient's age to complete this topic Procedures Procedure Name Priority Date/Time Associated Diagnosis Comments MRI ENTEROGRAPHY Routine 05/21/2024 10:4 2 AM CDT Abnormal weight loss Ulcer of intestine from Last 3 Months Results * MRI ENTEROGRAPHY (05/21/2024 10:42 AM CDT) Anatomical Region Laterality Modality Abdomen, Pelvis Magnetic Resonan ce 05/23/2024 11:2 6 AM CDT Impressions 05/23/2024 2:13 PM CDT Impression: 1. Marked splenomegaly, with the spleen measuring 21.5 cm in craniocaudal dimension. This is nonspecific although given history of weight loss a lymphoproliferative process cannot be entirely excluded. 2. Diffuse low signal throughout the the osseous structures which may indicate red marrow hyperplasia although diffuse osseous malignancy cannot be excluded. 3. No MRI evidence of inflammatory bowel disease. The attending radiologist has reviewed the image(s) and agrees with the content of this report. Ordered By: FÉLIX GALINDO Interpreted By: Jason Soto MD, 05/23/2024 11:26 AM Narrative 05/23/2024 2:13 PM CDT [facility] [address] [place] [id number] Examination: MR enterography with and without IV contrast. Clinical Information: Bloating, occasional vomiting, weight loss since December 2023 Comparison: None available Technique: Sequences: Multiplanar, multisequence MR images of the abdomen and pelvis were obtained according to the enterography protocol. The patient was given oral contrast according to the protocol. IV contrast: 9 mL of MultiHance. Findings: BOWEL AND PERITONEUM Exam quality: Satisfactory, with adequate bowel distention. Stomach, duodenum, and jejunum: Normal. Ileum and terminal ileum: Normal. Colon: Normal. Anorectum: Normal. No evident fistula. Fluid collection or fistula: None. Free air or fluid: None. Other findings: None. UPPER ABDOMEN Liver and bile ducts: No focal liver lesion. Portal vein and hepatic veins are patent. No biliary dilatation. Gallbladder: Gallbladder in situ. No gallbladder wall thickening or pericholecystic fluid. Pancreas: No focal pancreatic lesion is seen. Spleen: There is massive splenomegaly, with the spleen measuring 21.5 cm in craniocaudal dimension. Multiple subcentimeter T1 and T2 hypointense lesions are seen throughout the spleen, which show no appreciable enhancement, and may represent calcified splenic granulomas. RETROPERITONEUM Adrenals: Normal. Kidneys: Multiple bilateral T2 hyperintense simple renal cysts are seen. Bilateral T1 hyperintense, T2 hyperintense renal lesions are seen, without appreciable postcontrast enhancement, compatible with proteinaceous/hemorrhagic cysts. Atrophic appearance of the left kidney. Lymph nodes: No lymphadenopathy in the abdomen or pelvis. VASCULATURE Visceral arteries and portal venous system are normally patent. PELVIS No abnormality. LOWER CHEST Heart is normal in size. Lung bases are clear. No pleural or pericardial effusions. BONES/SOFT TISSUES There is notable low signal throughout the spine and pelvic bones and heterogeneous low signal within the proximal femoral necks bilaterally. Findings may indicate red marrow hyperplasia of uncertain etiology although an underlying diffuse osseous malignancy cannot be entirely excluded. Postsurgical changes seen at the bilateral sacroiliac joints. Procedure Note Prudencio Fischer MD - 05/23/[address] [address] Examination: MR enterography with and without IV contrast. Clinical Information: Bloating, occasional vomiting, weight loss sinceDecember 2023 Comparison: None available Technique: Sequences: Multiplanar, multisequence MR images of the abdomen and pelviswere obtained according to the enterography protocol. The patient wasgiven oral contrast according to the protocol. IV contrast: 9 mL of MultiHance. Findings: BOWEL AND PERITONEUM Exam quality: Satisfactory, with adequate bowel distention. Stomach, duodenum, and jejunum: Normal. Ileum and terminal ileum: Normal. Colon: Normal. Anorectum: Normal. No evident fistula. Fluid collection or fistula: None. Free air or fluid: None. Other findings: None. UPPER ABDOMEN Liver and bile ducts: No focal liver lesion. Portal vein and hepatic veinsare patent. No biliary dilatation. Gallbladder: Gallbladder in situ. No gallbladder wall thickening orpericholecystic fluid. Pancreas: No focal pancreatic lesion is seen. Spleen: There is massive splenomegaly, with the spleen measuring 21.5 cmin craniocaudal dimension. Multiple subcentimeter T1 and T2 hypointenselesions are seen throughout the spleen, which show no appreciableenhancement, and may represent calcified splenic granulomas. RETROPERITONEUM Adrenals: Normal. Kidneys: Multiple bilateral T2 hyperintense simple renal cysts are seen.Bilateral T1 hyperintense, T2 hyperintense renal lesions are seen, withoutappreciable postcontrast enhancement, compatible withproteinaceous/hemorrhagic cysts. Atrophic appearance of the left kidney. Lymph nodes: No lymphadenopathy in the abdomen or pelvis. VASCULATURE Visceral arteries and portal venous system are normally patent. PELVIS No abnormality. LOWER CHEST Heart is normal in size. Lung bases are clear. No pleural or pericardialeffusions. BONES/SOFT TISSUES There is notable low signal throughout the spine and pelvic bones andheterogeneous low signal within the proximal femoral necks bilaterally.Findings may indicate red marrow hyperplasia of uncertain etiologyalthough an underlying diffuse osseous malignancy cannot be entirelyexcluded. Postsurgical changes seen at the bilateral sacroiliac joints. Impression: 1. Marked splenomegaly, with the spleen measuring 21.5 cm in craniocaudaldimension. This is nonspecific although given history of weight loss alymphoproliferative process cannot be entirely excluded. 2. Diffuse low signal throughout the the osseous structures which mayindicate red marrow hyperplasia although diffuse osseous malignancy cannotbe excluded. 3. No MRI evidence of inflammatory bowel disease. The attending radiologist has reviewed the image(s) and agrees with thecontent of this report. Ordered By: FÉLIX GALINDO Interpreted By: Jason Soto MD, 05/23/2024 11:26 AM Félix Galindo MD MRI Fin al Result from Last 3 Months Insurance [employer] MEDICA[employer] Care Teams Looping Inspector Relationship Specialty Start Date End Date Dolly Grimes FNP [address] [place] [address] [facility] [address] [place] [address] PCP - General Nurse Practitioner Family 05/21/24
--- OUTSIDE RECORDS SUMMARY | 2024-05-31 11:50 | XMS_ITS | Clinical Summary ---
Author Organization [facility] Address [address] [facility] [address] [place] [address] Care Team Providers Care Mathematics Improvement Teacher Name Role Phone Unavailable Primary Care Provider [...] on file Legal Sex Female 3:45 AM RECREATION MANAGER Gender Identity Not on file Sexual Orientation Not on file Last Filed Vital Signs Vital Sign Reading Time Taken Comments Blood Pressure 120/64 01/04/2017 12:58 PM RECREATION MANAGER Pulse 65 01/04/2017 12:58 PM RECREATION MANAGER Temperature 36.5 C (97.7 F) 01/04/2017 12:58 PM RECREATION MANAGER Respiratory Rate 18 01/04/2017 12:58 PM RECREATION MANAGER Oxygen Saturation 97% 01/04/2017 12:58 PM RECREATION MANAGER Inhaled Oxygen Concentration - - Weight 62.6 kg (138 lb) 01/04/2017 12:58 PM RECREATION MANAGER Height 152.4 cm (5') 01/04/2017 12:58 PM RECREATION MANAGER Body Mass Index 26.95 01/04/2017 12:58 PM RECREATION MANAGER Plan of Treatment Health Maintenance Due Date [...] contacted. Electronically signed by: Nathan clark/suzie:05/15/2017 14:18:37 Bundling Machine Operator: Cher CARPENTER(Tigre)(M), [facility] letter sent: Additional Imaging Reading location: [facility] BI-RADS: 0 Additional Imaging Evaluation Needed [...] contacted. Electronically signed by: Nathan clark/suzie:05/15/2017 14:18:37 Bundling Machine Operator: Cher CARPENTER(Tigre)(M), [facility] letter sent: Additional Imaging Reading location: [facility] BI-RADS: 0 Additional Imaging Evaluation Needed Figueroa Britt MD IMG MAMMO ORDERABLES Final Result from Last 3 Months or Most Recently Relevant to Health Maintenance Insurance MEDICARE C [employer]
--- OUTSIDE RECORDS SUMMARY | 2024-05-31 11:50 | XMS_ITS | Clinical Summary ---
Author Organization [facility] Address [address] [place] [address] Care Team Providers Care Heel Shaper Name Role Phone Unavailable Primary Care Provider Unavailabl e Social History Tobacco Use Types Packs/Day Years Used Date Smoking Tobacco: Never Assessed Comments Unknown Sex and Gender Information Value Date Recorded Sex Assigned at Not on file Legal Sex Female 7:14 PM CHILD THERAPIST Gender Identity Not on file Sexual Orientation [...] 12/04/2013, 06/09/2005 OSTEOPOROSIS SCREENING Completed 09/01/2011 Insurance [employer]
--- OUTSIDE RECORDS SUMMARY | 2024-05-31 11:50 | XMS_ITS ---
Author Organization [facility] Address [address] [place] [address] VIDHYA Johnson [address] Care Team Providers Care Burnisher Name Role Phone Anabella CARMEN, Joy Primary Care Provider Unavailable Feng Hendrickson Unavailable [phone] ALLERGIES Allergen (clinical drug ingredient) Drug/Non Drug Allergy documented on EMR Reaction Allergy Type Onset Date Status aripiprazole Aripiprazole nausea and vomiting Drug Allergy Active clindamycin Clindamycin diarrhea Drug Allergy Act lucian fentanyl Fentanyl nausea Drug Allergy Active morphine Morphine rash/itching Drug Allergy Acti ve REASON FOR VISIT Follow Up, Right > Left Low Back Pain MEDICATIONS Medication SIG (Take, Route, Frequency, Duration) Notes Start Date End Date Status Metoprolol Succinate ER 25 MG TAKE 1 TABLET BY MOUTH EVERY DAY Oral for 90 Active Fluticasone-Salmeterol 250-50 MCG/ACT Inhalation for 30 Active Losartan Potassium-HCTZ 100-25 MG TAKE 1 TABLET BY MOUTH EVERY DAY Oral for 90 Active Carvedilol 3.125 MG TAKE 1 TABLET BY MOUTH EVERY 12 HOURS WITH A MEAL/FOOD Oral for 90 Active tiZANidine HCl 4 MG 1 tablet as needed Oral 3 x day muscle spasm for 30 days 12/13/2019 Active hydrOXYzine HCl 25 MG TAKE 1 TABLET BY MOUTH THREE TIMES A DAY NEEDED FOR ANXIETY Oral for 10 Active Amphetamine-Dextroamph etamine 20 MG TAKE 1 TABLET BY MOUTH EVERY DAY Oral for 30 Active Narcan 4 MG/0.1ML 1 actuation in one nostril x1, Nasally 2-3 minutes as needed until the patient is responsive or EMS arrives Active Ferrous Sulfate 325 (65 Fe) MG 325 MG ORALLY TWICE A DAY Oral for 90 Active Voltaren 1 % apply 4 grams to painful joint(s) Transdermal 4x/day as needed for pain for 30 days Active Lidocaine-Prilocaine 2.5-2.5 % as directed External Active rOPINIRole HCl 0.5 MG 1 tablet 1 to 3 ho urs before bedtime Orally Once a day Active CVS D3 50 MCG (2000 UT) TAKE 1 CAPSULE BY MOUTH EVERY DAY Oral for 90 Active Losartan Potassium 25 MG 1 tablet Oral Once a day Active Fluticasone Propionate 50 MCG/ACT 1 spray in each nostril Nasal Twice a day Active amLODIPine Besylate 5 MG 1 tablet Oral Once a day Active ZyPREXA 5 MG 1 tablet Orally Once a day Active Vitamin D3 1000 UNIT 1 capsule Orally On a day 09/25/2017 Active ProAir HFA 108 (90 Base) MCG/ACT 2 puffs as needed Inhalation every 6 hrs 09/25/2017 Active Omeprazole 20 MG 1 capsule 30 minutes before morning meal Oral Once a day Active HYDROcodone-Acetaminop hen 10-325 MG 1 tablet Orally every 4 to 6 hrs as needed for severe pain (max 5x/day) for 30 days MAY FILL 05/05/24 05/03/2024 Active traZODone HCl 100 MG 1 tablet at bedtime Oral Once a day Active FLUoxetine HCl 40 MG 1 capsule Oral Once a day Active SOCIAL HISTORY [...] 10 years VITAL SIGNS Blood pressure systolic 138 mm Hg 05/04/19 25 Blood pressure diastolic 86 mm Hg 025 Heart Rate 78 /min 05/03/2024 Respiratory Rate 18 /min 05/03/2024 Height 60 in 05/03/2024 Weight 136 lbs 05/03/2024 BMI 26.56 kg/m2 05/03/2024 Encounters Encounter Location Date Provider Diagnosis [facility] [address] [place] [address] [place] [address] 05/03/2024 Feng Hendrickson Spondylosis without myelopathy or radiculopathy, lumbar region M47.816 ; Sacroiliitis, not elsewhere classified M46.1 ; Radiculopathy, lumbar region M54.16 ; Postlaminectomy syndrome, not elsewhere classified M96.1 ; Other intervertebral disc degeneration, lumbar region M51.36 ; 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 05/03/2024 Radiculopathy, lumbar region (ICD-10 - M54.16) The [...] to fully comply with the above. 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 The risks of this procedure including pain, bleeding, infection, insomnia, hyperglycemia, hair loss, muscle atrophy, skin depigmentation, weight gain, fluid retention, adrenal suppression, immunosuppression, osteoporosis resulting in fractures, avascular necrosis of the hip, cataracts, bleeding gastric ulcer, worsening pain and failure to relieve pain were discussed and the patient is agreeable to proceeding at this time. Radiculopathy, lumbar region The side ef fects [...] to fully comply with the above. The [place] and [place] PDMP were reviewed and were appropriate Other [...] Makin minutes Next Appt Details Follow Up: bilateral SIJ michael roid injection, Reason: Provider Name:Feng Olivo Lay bean, 06/03/2024 10:00:00 AM, [address] [place] [address], [phone], Progress Notes * Examination Category Sub-Category Detail [...] axial low back pain. Gonzalo's, Gaenslen's and [place]'s tests are positive bilaterally. There is severe [...]
--- OUTSIDE RECORDS SUMMARY | 2024-05-31 11:50 | XMS_ITS ---
Author Organization [facility] Address [address] [place] [address] VIDHYA Johnson [id number] Care Team Providers Care Level Vial Inspector And Tester Name Role Phone Anabella CARMEN, Joy Primary Care Provider Unavailable Feng Hendrickson Unavailable [phone] ALLERGIES Allergen (clinical drug ingredient) Drug/Non Drug [...] muscle spasm for 30 days 12/13/2019 Active Carvedilol 3.125 MG TAKE 1 TABLET BY MOUTH EVERY 12 HOURS WITH A MEAL/FOOD Oral for 90 Active Losartan Potassium-HCTZ 100-25 MG TAKE 1 TABLET BY MOUTH EVERY DAY Oral for 90 Active Fluticasone-Salmeterol 250-50 MCG/ACT Inhalation for 30 Active Ferrous Sulfate 325 (65 Fe) MG 325 MG ORALLY TWICE A DAY Oral for 90 Active Narcan 4 MG/0.1ML 1 actuation in one nostril x1, Nasally 2-3 minutes as needed until the patient is responsive or EMS arrives Active Amphetamine-Dextroamph etamine 20 MG TAKE 1 TABLET BY MOUTH EVERY DAY Oral for 30 Active hydrOXYzine HCl 25 MG TAKE 1 TABLET BY MOUTH THREE TIMES A DAY NEEDED FOR ANXIETY Oral for 10 Active Voltaren 1 % apply 4 grams [...] before bedtime Orally Once a day Active ProAir HFA 108 (90 Base) MCG/ACT 2 puffs as needed Inhalation every 6 hrs 09/25/2017 Active Vitamin D3 1000 UNIT 1 capsule Orally On a day 09/25/2017 Active ZyPREXA 5 MG 1 [...] 5x/day) for 30 days MAY FILL 05/05/24 04/05/2024 Active FLUoxetine HCl 40 MG 1 capsule Oral Once a day Active traZODone HCl 100 MG 1 tablet at bedtime Oral Once a day Active VITAL SIGNS Blood pressure systolic 134 mm Hg 05/11/19 25 Blood pressure diastolic 85 mm Hg 025 Heart Rate 77 /min 05/10/2024 Respiratory Rate 16 /min 05/10/2024 Height 60 in 05/10/2024 Weight 136 lbs 05/10/2024 BMI 26.56 kg/m2 05/10/2024 Encounters Encounter Location Date Provider Diagnosis [facility] [address] [place] [id number] 05/10/2024 Feng jeffkaren Sacroiliitis, not elsewhere classified M46.1 ASSESSMENTS Encounter Date Diagnosis Assessment Notes Treatment Notes Treatment Clinical Notes 05/10/2024 Sacroiliitis, not elsewhere classified (ICD-10 - M46.1) PLAN OF TREATMENT Next Appt Details Follow Up: 06/03/24 OPV, Reas on: Provider Name:Feng Finleywinifred chrissykaren, 06/03/2024 10:00:00 AM, [address] [place] [address], [phone], Procedure Notes * Category Sub-Category Detail Notes Sacroiliac Joint Injection w ith Arthrogram under Fluoroscopy Location Bilateral Anesthesia Local without IV sed ation Operative Technique After the risks, mercedez efits, alternative treatments and potential complications related to the procedure were discussed and informed consent was obtained, the patient was placed in the prone position on the fluoroscopy table. Standard ASA monitors were applied. The lower back and buttocks were prepped and draped in the usual sterile fashion with chlorhexidine 2%/IPA 70%. The left, followed by the right, sacroiliac joint was identified under live x-ray. An AP view was obtained superimposing the superior aspect of the anterior and posterior sacroiliac joint. A 23 gauge 3.5 inch spinal needle was inserted under fluoroscopic guidance towards the superior aspect of the sacroiliac joint until periosteum was contacted. The subcutaneous structures were anesthetized with 3 mL of 1% Preservative-Free lidocaine during needle placement. The needle tip was advanced into the inferior most aspect of the sacroiliac joint. A lateral view was taken to ensure correct placement within the sacroiliac joint. An AP view was taken and after negative aspiration for blood, air and CSF, 2 mL of Omnipaque 240 contrast dye was injected into each joint under live fluoroscopy for an arthrogram demonstrating normal caudad spread within the sacroiliac joint (except in cases of contrast allergy). No intravascular or perineural spread noted. There were no abnormalities in articular contour noted on the arthrogram. A solution of 10 mg of Preservative-Free Dexamethasone (10 mg/mL), plus 2 mL of 0.25% PF bupivacaine was mixed and after negative aspiration 1.5 mL of this solution was slowly injected into each (left followed by right) joint space. The needle was removed, the skin was cleaned and band-aids were placed over the puncture site. The patient tolerated the procedure well, was able to ambulate without difficulty and was monitored for 20 minutes. Patient reports a 90% reduction in typical pain immediately postprocedure. The patient remained hemodynamically and neurologically stable. No apparent complications were observed. Postoperative instructions were reviewed with the patient. 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 X-ray time: 9 seconds Progress Notes * Examination Category Sub-Category Detail [...] axial low back pain. Gonzalo's, Gaenslen's and Maricopa's tests are positive bilaterally. There is severe [...]
--- OUTSIDE RECORDS SUMMARY | 2024-05-31 11:50 | XMS_ITS ---
Author Organization [facility] Address [address] [facility] [place] [address] Care Team Providers Care State Wildlife Officer Name Role Phone Anabella CARMEN, Joy Primary Care Provider Unavailable Feng Hendrickson Unavailable [phone] REASON FOR VISIT refill MEDICATIONS Medication SIG (Take, Route, Fr equency, Duration) Notes Start Date End Date Status tiZANidine HCl 4 MG 1 tablet as needed O ral 3 x day muscle spasm for 30 days 12/13/2019 Active Encounters Encounter Location Date Provider Diagnosis [facility] [address] [place], [place] [address] [place] [phone] 04/26/2024 Feng Hendrickson Radiculopathy, lumbar region M54.16 ASSESSMENTS Encounter Date Diagnosis Assessment Notes Treatment Notes Treatment Clinical Notes 04/26/2024 Radiculopathy, lumbar region (ICD-10 - M54.16) PLAN OF TREATMENT Medication Medication Name Sig Start Date Stop Date Notes tiZANidine HCl 4 MG 1 tablet as needed O ral 3 x day muscle spasm for 30 days 12/13/2019 Next Appt Details Provider Name:Feng bean, 06/03/2024 10:00:00 AM, [address] [place], [phone],
--- OUTSIDE RECORDS SUMMARY | 2024-05-31 11:51 | XMS_ITS | Patient Health Record ---
Author Organization [facility] Address [address] [place] [address] VIDHYA Johnson [address] Care Team Providers Care Director Revenue Name Role Phone Anabella CARMEN, Joy Primary Care Provider Unavailable Feng Hendrickson Unavailable [phone] ALLERGIES Allergen (clinical drug ingredient) Drug/Non Drug Allergy documented on EMR Reaction Allergy Type Onset Date Status aripiprazole Aripiprazole nausea and vomiting Drug Allergy Active clindamycin Clindamycin diarrhea Drug Allergy Act lucian fentanyl Fentanyl nausea Drug Allergy Active morphine Morphine rash/itching Drug Allergy Acti ve RESULTS Component Value Reference Range Notes FP Complete Results (Not yet reviewed by provider) Interpretation: Performing Lab:[id number] [employer], [address] [address] [facility] [address] Angelika Garcia MD Notes/Report: 4-ANPP: Fentanyl Negative. [...] 100 ng/mL Tramadol Quantification negative 100 ng/mL O-ujdmoffvt-ifcjalqx Quantification negative 100 n g/mL Z-Kqaekcyby-Haclruqk Quantification negative 100 n g/mL Tapentadol Quantification negative 50 ng/mL Meperidine Quantification negative 50 ng/mL Normeperidine Quantification negative 50 ng/mL Alpha-Hydroxyalprazolam Quantification negative 20 ng/mL 3-Ahvli-Gzpiplaefz Quantification negative 20 ng/m L Lorazepam Quantification negative 40 ng/mL Nordiazepam Quantification negative 40 ng/mL Temazepam Quantification negative 50 ng/mL Oxazepam Quantification negative 40 ng/mL Amphetamine Quantification positive-> 74964 100 ng/mL Methylphenidate Quantification negative 50 ng/mL [...] 10 ng/mL Flubromazolam Quantification negative 10 ng/mL QFR231 metabolite Quantification negative 10 ng/mL PSQ972 metabolite Quantification negative 10 ng/mL RCS4 metabolite Quantification negative 10 ng/mL XLR11/UR144 metabolite negative 10 ng/mL 5F-ADB-M7 negative 10 ng/mL KE-CKIVHXSU-U9 negative 10 ng/mL GYNW-QAXKPCPK-X0 negative 10 ng/mL Eutylone Quantification negative 10 ng/mL Methylone Quantification negative 3 ng/mL Xylazine Quantification negative 10 ng/mL 4-hydroxy Xylazine Quantification negative 10 ng/m L Mitragynine (Kratom alkaloid ) Quantification negative 1 ng/mL 9-WV-Glmgdafukty (Kratom alk aloid) Quantification negative 1 ng/mL ETHANOL negative 20 mg/dL mg/dL ETHYL GLUCURONIDE SCREEN negative 500 ng/mL Ethyl Glucuronide Quantification negative 500 ng/m L Ethyl Sulfate Quantification negative 500 ng/mL CREATININE (CHEMICAL) normal-160.1 >20 mg/dL mg/dL OXIDANT normal-0 <200 ug/mL ug/mL PH normal-5.2 4.5 - 9.5 SPECIFIC GRAVITY normal-1.027 1.003 - 1.035 [facility] Results (Not yet reviewed by provider) Interpretation: Performing Lab:[id number] [facility], [address] [address] [facility] [address] Angelika Garcia MD Notes/Report: 4-ANPP: Fentanyl Negative. Acetyl fentanyl: Fentanyl Negative. Acetyl norfenta nyl: Fentanyl Negative. Acryl fentanyl: Fentanyl Negative. Carfentanil: Fentany l Negative. Para-fluorofentanyl: Fentanyl Negative. Codeine Quantification negative 50 ng/mL Morphine Quantification negative 50 ng/mL Hydrocodone Quantification positive-97099.023 50 ng/mL Norhydrocodone Quantification positive-> 6400 50 [...] 100 ng/mL Tramadol Quantification negative 100 ng/mL M-hjqryomaq-jsxgituq Quantification negative 100 n g/mL M-Qxyzlhpdo-Uiwnsplm Quantification negative 100 n g/mL Tapentadol Quantification negative 50 ng/mL Meperidine Quantification negative 50 ng/mL Normeperidine Quantification negative 50 ng/mL Alpha-Hydroxyalprazolam Quantification negative 20 ng/mL 8-Dnoac-Gzggqmcact Quantification negative 20 ng/m L Lorazepam Quantification negative 40 ng/mL Nordiazepam Quantification negative 40 ng/mL Temazepam Quantification negative 50 ng/mL Oxazepam Quantification negative 40 ng/mL Amphetamine Quantification positive-> 52861 100 ng/mL Methylphenidate Quantification negative 50 ng/mL [...] 10 ng/mL Flubromazolam Quantification negative 10 ng/mL ZFD900 metabolite Quantification negative 10 ng/mL EAZ269 metabolite Quantification negative 10 ng/mL RCS4 metabolite Quantification negative 10 ng/mL XLR11/UR144 metabolite negative 10 ng/mL 5F-ADB-M7 negative 10 ng/mL QB-WFSSJIKB-U5 negative 10 ng/mL RMTV-BZRHCFWA-C5 negative 10 ng/mL Eutylone Quantification negative 10 ng/mL Methylone Quantification negative 3 ng/mL Xylazine Quantification negative 10 ng/mL 4-hydroxy Xylazine Quantification negative 10 ng/m L Mitragynine (Kratom alkaloid ) Quantification negative 1 ng/mL 0-FJ-Fffyxyuntlg (Kratom alk aloid) Quantification negative 1 ng/mL ETHANOL negative 20 mg/dL mg/dL ETHYL GLUCURONIDE SCREEN negative 500 ng/mL Ethyl Glucuronide Quantification negative 500 ng/m L Ethyl Sulfate Quantification negative 500 ng/mL CREATININE normal-139.3 >20 mg/dL mg/dL OXIDANT normal-0 <200 ug/mL ug/mL PH normal-4.9 4.5 - 9.5 SPECIFIC GRAVITY normal-1.024 1.003 - 1.035 [facility] Results (Not yet reviewed by provider) Interpretation: Performing Lab:[id number] [employer], [address] [address] [facility] [address] Angelika Garcia MD Notes/Report: Codeine negative 1 ng/mL Morphine negative 1 ng/mL Hydrocodone positive-120.252 1 ng/mL Norhydrocodone Quantification positive-8.450 2 ng/mL Hydromorphone negative 1 ng/mL Oxycodone negative 1 ng/mL Noroxycodone Quantification negative 2 ng/mL Oxymorphone negative 1 ng/mL Fentanyl Quantification negative 0.2 ng/mL Norfentanyl Quantification negative 1 ng/mL Methadone negative 2 ng/mL EDDP (Methadone metabolite) negative 2 ng/mL Tramadol Quantification negative 5 ng/mL U-Fjqzyhlaj-Emtksbyp Quantification negative 5 ng/ mL Alprazolam negative [...] 6-WALTER (Heroin metabolite) Quantification negative 1 ng/mL FP Complete Results (Not yet reviewed by provider) Interpretation: Performing Lab:[id number] [employer], [address] [address] [facility] [address] Angelika Garcia MD Notes/Report: Acetyl fentanyl: Fentanyl [...] 100 ng/mL Tramadol Quantification negative 100 ng/mL L-seeoiqhqy-zupftjdb Quantification negative 100 n g/mL W-Pvfleccfr-Gibjvbmr Quantification negative 100 n g/mL Alpha-Hydroxyalprazolam Quantification negative 20 ng/mL 7-Vckdg-Efxxqjdvgw Quantification negative 20 ng/m L Lorazepam Quantification [...] (Kratom alkaloid ) Quantification negative 1 ng/mL 8-ZT-Feadyoofjhg (Kratom alk aloid) Quantification negative 1 ng/mL Ethyl Glucuronide Quantification positive-814.348 500 ng/mL Ethyl Sulfate Quantification negative 500 ng/mL REASON FOR REFERRAL No Information MEDICATIONS Medication SIG (Take, Route, Frequency, Duration) Notes Start Date End Date Status Ferrous Sulfate 325 (65 Fe) MG 325 MG ORALLY TWICE A DAY Oral for 90 Active ProAir HFA 108 (90 Base) MCG/ACT 2 puffs as needed Inhalation every 6 hrs 09/25/2017 Active Narcan 4 MG/0.1ML 1 actuation in one nostril x1, Nasally 2-3 minutes as needed until the patient is responsive or EMS arrives Active Vitamin D3 1000 UNIT 1 capsule Orally On a day 09/25/2017 Active Amphetamine-Dextroamph etamine 20 MG TAKE 1 TABLET BY MOUTH EVERY DAY Oral for 30 Active ZyPREXA 5 MG 1 tablet Orally Once a day Active hydrOXYzine HCl 25 MG TAKE 1 TABLET BY MOUTH THREE TIMES A DAY NEEDED FOR ANXIETY Oral for 10 Active amLODIPine Besylate 5 MG 1 tablet Oral Once a day Active Metoprolol Succinate ER 25 MG TAKE 1 TABLET BY MOUTH EVERY DAY Oral for 90 Active Lidocaine-Prilocaine 2.5-2.5 % as directed External Active tiZANidine HCl 4 MG 1 tablet as needed Oral 3 x day muscle spasm for 30 days 12/13/2019 Active Fluticasone Propionate 50 MCG/ACT 1 spray in each nostril Nasal Twice a day Active Carvedilol 3.125 MG TAKE 1 TABLET BY MOUTH EVERY 12 HOURS WITH A MEAL/FOOD Oral for 90 Active Losartan Potassium 25 MG 1 tablet Oral Once a day Active Losartan Potassium-HCTZ 100-25 MG TAKE 1 TABLET BY MOUTH EVERY DAY Oral for 90 Active HYDROcodone-Acetaminop hen 10-325 MG 1 tablet Orally every 4 to 6 hrs as needed for severe pain (max 5x/day) for 30 days MAY FILL 05/05/24 04/05/2024 Active [facility] D3 50 MCG (1999) TAKE 1 CAPSULE BY MOUTH EVERY DAY Oral for 90 Active Fluticasone-Salmeterol 250-50 MCG/ACT Inhalation for 30 Active FLUoxetine HCl 40 MG [...] needed for pain for 30 days Active Omeprazole 20 MG 1 capsule 30 [...] since you last smoked? > 10 years PROBLEMS Problem Type ICD Code Onset Dates Problem Status W/U Status Risk SNOMED Code Notes Problem Fear of injections and transfusions (F40.231) Active confirmed Fear of medical treatment (911636924) Problem Brachial plexus disorders (G54.0) Active confirmed Brachial p cassandra disorder (5316065) Problem Chronic pain syndrome (G89.4) Active confirmed Chronic ji n syndrome (438342760) Problem Unilateral primary osteoarthritis, left knee (M17.12) Active confirmed Osteoarth ritis of knee (995290476) Problem Unspecified osteoarthritis, unspecified site (M19.90) Active confirmed Osteoarthritis (600261073) Problem Pain in right shoulder (M25.511) Active confirmed Pain of r ight shoulder region (finding) (3360870752) Problem Pain in left shoulder (M25.512) Active confirmed Shoulder joint pain (565902813) Problem Sacroiliitis, not elsewhere classified (M46.1) Active confirmed Solitary sacroiliitis (319500793) Problem Spondylosis without myelopathy or radiculopathy, lumbar region (M47.816) Active confirmed Lumbosacral spondylosis without myelopathy (28199458) Problem Spondylosis without myelopathy or radiculopathy, lumbosacral region (M47.817) Active confirmed Lumbosacral spondylosis without myelopathy (disorder) (42907271) Problem Intervertebral disc disorders with radiculopathy, lumbar 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) Active confirmed Radiculopathy due to lumbar intervertebral disc disorder (662652259609695 ) L4-5 HNP Problem Other intervertebral disc degeneration, 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 confirmed Degeneration of lumbar intervertebral disc (40210948) Problem Radiculopathy, lumbar region (M54.16) Active confirmed Lumbar radiculopathy (426605079) Problem Postlaminectomy syndrome, not elsewhere classified (M96.1) Active confirmed Post-lami nectomy syndrome (59898373) Problem Osseous stenosis of neural canal 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) Active confirmed Spinal stenosis of lumbar region (17603370) Problem Intervertebral disc stenosis of neural canal of lumbar region (M99.53) Active confirmed Spinal stenosis of lumbar region (71507467) Problem MCFP (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 of anticoagulants (Z79.01) Active confirmed Long-term current use of anticoagulant (169082965) Problem MCFP (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 of 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 (Z79.891) Active confirmed High risk drug monitoring status (983057615) Problem Myalgia, other site (M79.18) Active confirmed Muscle pain (34954409) VITAL SIGNS Heart Rate 77 /min 05/10/2024 Respiratory Rate 16 /min 05/10/2024 Oximetry 99 % 09/06/2023 Post procedure vitals BP 166/97 HR 80 R 18 SpO2 99%. Pt discharged to home ambulatory with steady gait, no sign of acute distress. Blood pressure diastolic 85 mm Hg 05/10/2024 Height 60 in 05/10/2024 Blood pressure systolic 134 mm Hg 05/10/2024 Weight 136 lbs 05/10/2024 BMI 26.56 kg/m2 05/10/2024 Encounters Encounter Location Date Provider Diagnosis [facility] [address] [place] [address] [place] [address] 07/11/2023 Feng Stynchrissyick Radiculopathy, lumba r region M54.16 [facility] [address] [place] [address] [place] [address] 09/07/2023 Feng Stynowick [facility] [address] [place] [address] [place] [address] 10/24/2023 Feng Stynowick Radiculopathy, lumba r region M54.16 [facility] [address] [place] [address] [place] [address] 10/26/2023 Feng Stynowick Radiculopathy, lumba r region M54.16 [facility] [address] [place] [address] [place] [address] 12/19/2023 Feng Stynowick Radiculopathy, lumba r region M54.16 [facility] [address] [place] [address] [place] [address] 01/29/2024 Feng Stynowick Radiculopathy, lumba r region M54.16 [facility] [address] [place] [address] [place] [address] 02/19/2024 Feng Stynowick Radiculopathy, lumba r region M54.16 [facility] [address] [place] [address] [place] [address] 03/18/2024 Feng Stynowick [facility] [address] [place] [address] [place] [address] 03/27/2024 Feng Stynowick [facility] [address] [place] [address] [place] [address] 04/26/2024 Feng Stynowick Radiculopathy, lumba r region M54.16 [facility] [address] [place], [place] [address], [place] [address] 03/26/2024 Feng Stynowick Spondylosis without myelopathy or radiculopathy, lumbar region M47.816 and Spondylosis without myelopathy or radiculopathy, lumbosacral region M47.817 [facility] [address] [place] [address] [place] [address] 05/10/2024 Feng Stynowick Sacroiliitis, not elsewhere classified M46.1 [facility] [address] [place], [place] [address], [place] [address] 02/16/2024 Feng Stynowick Radiculopathy, lumba r region M54.16 ; Intervertebral disc disorders with radiculopathy, lumbar region M51.16 and Osseous stenosis of neural canal of lumbar region M99.33 [facility] [address] [place], [place] [address], [place] [address] 01/02/2024 Feng Stynowick Sacroiliitis, not elsewhere classified M46.1 [facility] [address] [place] [address] [place] [address] 11/06/2023 Feng Stynowick Radiculopathy, lumba r region M54.16 ; Intervertebral disc disorders with radiculopathy, lumbar region M51.16 and Osseous stenosis of neural canal of lumbar region M99.33 [facility] [address] [place] [address] [facility] [place] [address] 09/06/2023 Feng Stynowick Spondylosis without myelopathy or radiculopathy, lumbar region M47.816 and Spondylosis without myelopathy or radiculopathy, lumbosacral region M47.817 [facility] [address] [place] [address] [place] [address] 07/18/2023 Feng Stynowick [facility] [address] [place] [address], [place] [address] 07/24/2023 Feng Stynowick Radiculopathy, lumba r region M54.16 ; Other intervertebral disc degeneration, lumbar region M51.36 and Osseous stenosis of neural canal of lumbar region M99.33 [facility] [address] [place], [place] [address], [place] [address] 06/05/2023 Feng Stynowick Sacroiliitis, not elsewhere classified M46.1 [facility] [address] [place] [address] [place] [address] 06/30/2023 Feng Stynowick Radiculopathy, lumba r region M54.16 ; Sacroiliitis, not elsewhere classified M46.1 ; Spondylosis without myelopathy or radiculopathy, lumbar region M47.816 ; Postlaminectomy syndrome, not elsewhere classified M96.1 ; Other intervertebral disc degeneration, lumbar region M51.36 ; Osseous stenosis of neural canal of lumbar region M99.33 ; 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 and rat 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 (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 of 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 Z79.891 [facility] [address] [place], [place] [address], [place] [address] 07/31/2023 Feng Stynowick Radiculopathy, lumba r region M54.16 ; Sacroiliitis, not elsewhere classified M46.1 ; Spondylosis without myelopathy or radiculopathy, lumbar region M47.816 ; Postlaminectomy syndrome, not elsewhere classified M96.1 ; Other intervertebral disc degeneration, lumbar region M51.36 ; Osseous stenosis of neural canal of lumbar region M99.33 ; 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 and rat 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 (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 of 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 Z79.891 [facility] [address] [place] [address] 08/28/2023 Feng Stynowick Radiculopathy, lumba r region M54.16 ; Spondylosis without myelopathy or radiculopathy, lumbar region M47.816 ; Sacroiliitis, not elsewhere classified M46.1 ; Postlaminectomy syndrome, not elsewhere classified M96.1 ; Other intervertebral disc degeneration, lumbar region M51.36 ; Osseous stenosis of neural canal of lumbar region M99.33 ; 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 and MCFP (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 of 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 Z79.891 [facility] [address] [place] [address] 09/27/2023 Feng Stynowick Radiculopathy, lumba r region M54.16 ; Spondylosis without myelopathy or radiculopathy, lumbar region M47.816 ; Sacroiliitis, not elsewhere classified M46.1 ; Postlaminectomy syndrome, not elsewhere classified M96.1 ; Other intervertebral disc degeneration, lumbar region M51.36 ; Osseous stenosis of neural canal of lumbar region M99.33 ; 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 and rat 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 (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 of 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 Z79.891 [facility] [address] [place] [address] 10/04/2023 Feng Stynowick [facility] [address] [place] [address] 10/30/2023 Feng Stynowick Radiculopathy, lumba r region M54.16 ; Spondylosis without myelopathy or radiculopathy, lumbar region M47.816 ; Sacroiliitis, not elsewhere classified M46.1 ; Postlaminectomy syndrome, not elsewhere classified M96.1 ; Other intervertebral disc degeneration, lumbar region M51.36 ; Osseous stenosis of neural canal of lumbar region M99.33 ; 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 and rat 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 (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 of 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 Z79.891 [facility] [address] [place] [address] 10/24/2023 Feng Stynowick Radiculopathy, lumba r region M54.16 ; Spondylosis without myelopathy or radiculopathy, lumbar region M47.816 ; Sacroiliitis, not elsewhere classified M46.1 ; Postlaminectomy syndrome, not elsewhere classified M96.1 ; Other intervertebral disc degeneration, lumbar region M51.36 ; Osseous stenosis of neural canal of lumbar region M99.33 ; 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 and rat 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 (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 of 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 Z79.891 [facility] [address] [place] [address] 11/29/2023 Feng Stynowick Radiculopathy, lumba r region M54.16 ; Spondylosis without myelopathy or radiculopathy, lumbar region M47.816 ; Sacroiliitis, not elsewhere classified M46.1 ; Postlaminectomy syndrome, not elsewhere classified M96.1 ; Other intervertebral disc degeneration, lumbar region M51.36 ; Osseous stenosis of neural canal of lumbar region M99.33 ; 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 and rat 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 (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 of 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 Z79.891 [facility] [address] [place] [address] 12/27/2023 Feng Stynowick Radiculopathy, lumba r region M54.16 ; Sacroiliitis, not elsewhere classified M46.1 ; Spondylosis without myelopathy or radiculopathy, lumbar region M47.816 ; Postlaminectomy syndrome, not elsewhere classified M96.1 ; Other intervertebral disc degeneration, lumbar region M51.36 ; Osseous stenosis of neural canal of lumbar region M99.33 ; 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 and rat 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 (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 of 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 Z79.891 [facility] [address] [place] [address] 01/25/2024 Feng Stynowick Radiculopathy, lumba r region M54.16 ; Sacroiliitis, not elsewhere classified M46.1 ; Spondylosis without myelopathy or radiculopathy, lumbar region M47.816 ; Postlaminectomy syndrome, not elsewhere classified M96.1 ; Other intervertebral disc degeneration, lumbar region M51.36 ; Osseous stenosis of neural canal of lumbar region M99.33 ; 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 and rat 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 (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 of 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 Z79.891 [facility] [address] [place] [address] 01/29/2024 Feng Stynowick Radiculopathy, lumba r region M54.16 ; Sacroiliitis, not elsewhere classified M46.1 ; Spondylosis without myelopathy or radiculopathy, lumbar region M47.816 ; Postlaminectomy syndrome, not elsewhere classified M96.1 ; Other intervertebral disc degeneration, lumbar region M51.36 ; Osseous stenosis of neural canal of lumbar region M99.33 ; 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 and rat 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 (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 of 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 Z79.891 [facility] [address] [place] [address] 02/06/2024 Feng Stynowick Radiculopathy, lumba r region M54.16 ; Sacroiliitis, not elsewhere classified M46.1 ; Spondylosis without myelopathy or radiculopathy, lumbar region M47.816 ; Postlaminectomy syndrome, not elsewhere classified M96.1 ; Other intervertebral disc degeneration, lumbar region M51.36 ; Osseous stenosis of neural canal of lumbar region M99.33 ; 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 and MCFP (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 of 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 Z79.891 [facility] [address] [place] [address] 03/06/2024 Feng Stynowick Radiculopathy, lumba r region M54.16 ; Spondylosis without myelopathy or radiculopathy, lumbar region M47.816 ; Sacroiliitis, not elsewhere classified M46.1 ; Postlaminectomy syndrome, not elsewhere classified M96.1 ; Other intervertebral disc degeneration, lumbar region M51.36 ; Osseous stenosis of neural canal of lumbar region M99.33 ; 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 and MCFP (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 of 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 Z79.891 [facility] [address] [place] [address] 05/03/2024 Feng Hendrickson Spondylosis without myelopathy or radiculopathy, lumbar region M47.816 ; Sacroiliitis, not elsewhere classified M46.1 ; Radiculopathy, lumbar region M54.16 ; Postlaminectomy syndrome, not elsewhere classified M96.1 ; Other intervertebral disc degeneration, lumbar region M51.36 ; Osseous stenosis of neural canal of lumbar region M99.33 ; 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 and MCFP (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 of 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 Z79.891 [facility] [address] [place] [address] 04/05/2024 Feng Hendrickson Radiculopathy, lumba r region M54.16 ; Spondylosis without myelopathy or radiculopathy, lumbar region M47.816 ; Sacroiliitis, not elsewhere classified M46.1 ; Postlaminectomy syndrome, not elsewhere classified M96.1 ; Other intervertebral disc degeneration, lumbar region M51.36 ; Osseous stenosis of neural canal of lumbar region M99.33 ; 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 and rat 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 (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 of 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 Z79.891 ASSESSMENTS Encounter Date Diagnosis Assessment Notes Treatment Notes Treatment Clinical Notes 06/05/2023 Sacroiliitis, not elsewhere classified (ICD-10 - [...] to fully comply with the above. The [place] and [place] PDMP were reviewed and were appropriate 06/30/2023 Sacroiliitis, not elsewhere classified (ICD-10 - M46.1) 07/11/2023 Radiculopathy, lumbar region (ICD-10 - M54.16) 07/24/2023 Radiculopathy, lumbar region (ICD-10 - M54.16) 07/24/2023 Other intervertebral disc degeneration, lumbar region (ICD-10 - M51.36) 07/31/2023 Radiculopathy, lumbar region (ICD-10 - M54.16) [...] to fully comply with the above. The [facility] PDMP were reviewed and were appropriate 07/31/2023 Sacroiliitis, not elsewhere classified (ICD-10 - M46.1) 09/06/2023 Spondylosis without myelopathy or radiculopathy, lumbar region (ICD-10 - M47.816) 09/06/2023 Spondylosis without myelopathy or radiculopathy, 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) 09/27/2023 Radiculopathy, lumbar region (ICD-10 - M54.16) [...] to fully comply with the above. The [facility] PDMP were reviewed and were appropriate 09/27/2023 Spondylosis without myelopathy or radiculopathy, lumbar region (ICD-10 - M47.816) 10/24/2023 Radiculopathy, lumbar region (ICD-10 - M54.16) [...] to fully comply with the above. The [facility] PDMP were reviewed and were appropriate 10/24/2023 Radiculopathy, lumbar region (ICD-10 - M54.16) 10/30/2023 [...] to fully comply with the above. The [facility] PDMP were reviewed and were appropriate 10/30/2023 Spondylosis without myelopathy or radiculopathy, lumbar region (ICD-10 - M47.816) 08/28/2023 Spondylosis without myelopathy or radiculopathy, lumbar [...] is agreeable to proceeding at this time. 10/26/2023 Radiculopathy, lumbar region (ICD-10 - M54.16) 11/06/2023 Radiculopathy, lumbar region (ICD-10 - M54.16) [...] to fully comply with the above. The [place] PDMP were reviewed and were appropriate 11/29/2023 Spondylosis without myelopathy or radiculopathy, lumbar region (ICD-10 - M47.816) 08/28/2023 Radiculopathy, lumbar region (ICD-10 - M54.16) [...] to fully comply with the above. The [facility] PDMP were reviewed and were appropriate 12/19/2023 Radiculopathy, lumbar region (ICD-10 - M54.16) 12/27/2023 Radiculopathy, lumbar region (ICD-10 - M54.16) [...] to fully comply with the above. The [facility] PDMP were reviewed and were appropriate 12/27/2023 [...] is agreeable to proceeding at this time. 01/02/2024 Sacroiliitis, not elsewhere classified (ICD-10 - [...] to fully comply with the above. The [facility] PDMP were reviewed and were appropriate 01/29/2024 [...] to fully comply with the above. The [facility] PDMP were reviewed and were appropriate 01/29/2024 [...] to fully comply with the above. The [place] PD[place] were reviewed and were appropriate 02/06/2024 Sacroiliitis, not elsewhere classified (ICD-10 - M46.1) 02/16/2024 Radiculopathy, lumbar region (ICD-10 - M54.16) 02/16/2024 Intervertebral disc disorders with radiculopathy, lumbar region (ICD-10 - M51.16) L4-5 HNP 02/19/2024 Radiculopathy, lumbar region (ICD-10 - M54.16) [...] to fully comply with the above. The [place] PD[place] were reviewed and were appropriate 03/06/2024 [...] is agreeable to proceeding at this time. 03/26/2024 Spondylosis without myelopathy or radiculopathy, lumbar region (ICD-10 - M47.816) 03/26/2024 Spondylosis without myelopathy or radiculopathy, 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) 04/05/2024 Radiculopathy, lumbar region (ICD-10 - M54.16) [...] to fully comply with the above. The [place] PD[place] were reviewed and were appropriate 04/05/2024 Spondylosis without myelopathy or radiculopathy, lumbar region (ICD-10 - M47.816) 05/10/2024 Sacroiliitis, not elsewhere classified (ICD-10 - M46.1) 05/03/2024 Spondylosis without myelopathy or radiculopathy, lumbar [...] is agreeable to proceeding at this time. 04/26/2024 Radiculopathy, lumbar region (ICD-10 - M54.16) 05/03/2024 Radiculopathy, lumbar region (ICD-10 - M54.16) [...] to fully comply with the above. 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 10/30/2023 Sacroiliitis, not elsewhere classified (ICD-10 - M46.1) 10/24/2023 Spondylosis without myelopathy or radiculopathy, lumbar region (ICD-10 - M47.816) 09/27/2023 Sacroiliitis, not elsewhere classified (ICD-10 - M46.1) 07/31/2023 Spondylosis without myelopathy or radiculopathy, lumbar region (ICD-10 - M47.816) 07/24/2023 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) 06/30/2023 Spondylosis without myelopathy or radiculopathy, lumbar region (ICD-10 - M47.816) 06/30/2023 Postlaminectomy syndrome, not elsewhere classified (ICD-10 - M96.1) 07/31/2023 Postlaminectomy syndrome, not elsewhere classified (ICD-10 - M96.1) 09/27/2023 Postlaminectomy syndrome, not elsewhere classified (ICD-10 - M96.1) 10/24/2023 Sacroiliitis, not elsewhere classified (ICD-10 - M46.1) 10/30/2023 Postlaminectomy syndrome, not elsewhere classified (ICD-10 - M96.1) 11/06/2023 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) 08/28/2023 Postlaminectomy syndrome, not elsewhere classified (ICD-10 [...] not elsewhere classified (ICD-10 - M96.1) 04/05/2024 Postlaminectomy syndrome, not elsewhere classified (ICD-10 - M96.1) 05/03/2024 Postlaminectomy syndrome, not elsewhere classified (ICD-10 - M96.1) 05/03/2024 Other intervertebral disc degeneration, lumbar region (ICD-10 - M51.36) 04/05/2024 Other intervertebral disc degeneration, lumbar region [...] of lumbar region (ICD-10 - M99.33) 04/05/2024 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) 05/03/2024 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) 05/03/2024 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) 04/05/2024 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) 03/06/2024 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) 02/06/2024 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) 01/29/2024 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) 01/25/2024 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) 12/27/2023 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) 11/29/2023 Fear of injections and transfusions (ICD-10 [...] injections and transfusions (ICD-10 - F40.231) 06/30/2023 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 11/29/2023 [facility] (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 of 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 (ICD-10 - 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 This note was dictated by KRAGI Morton 11/29/2023 Other The above-named patient was [...] SAFETY CONCERNS HAVE BEEN ADDRESSED. JL initials ___JW___ 04/05/2024 Other The above-named patient was evaluated [...] with Patient and Medical Decision Makin minutes 05/03/2024 Other The above-named patient was evaluated [...] Lumbar Spine with and without Cont rast (15567) 02/01/2022 MRI : Lumbar Spine with and without Cont rast ([id number]) 04/25/2022 XRAY right shoulder 09/09/2020 [facility] 01/03/2022 [facility] 03/29/2022 [facility] 09/16/2022 [facility] 06/01/2023 [facility] 08/28/2023 [facility] 11/29/2023 [facility] 03/06/2024 Next Appt Details Provider Name:Feng bean, 06/03/2024 10:00:00 AM, [address] [place], [phone], Insurance Providers Payer Name Payer Address Payer Phone Subscriber Number Group Number Insured Name Patient Relationship to Insured Coverage Start Date Coverage End Date [employer] Claims [address] [address] [place] [phone] [id number] LORINMIKE PRESCOTT Self - patient is the insured 8 MEDICAL (GENERAL) HISTORY Medical History History ICD Code Hypertension Stomach Ulcers Depression Insomnia GERD Anemia Asthma Migraine Surgical History Surgery Date(Month/Year) Pain Pump Removal 2011 Multiple Lumbar Surgeries
[2024-05-31 18:27] LABS: Hemoglobin 9.2 g/dL (12.0-15.0); Mean Corpuscular HGB Conc 29.7 g/dl (32-36); Mean Corpuscular Hemoglobin 25.3 pg (26-34); Mean Corpuscular Volume 85.2 fl (80-100); Mean Platelet Volume 9.7 fl (7.4-10.4); Platelet Count Result 192 k/mm3 (150-375); Red Blood Count 3.64 M/mm3 (4.2-5.4); Red Cell Distribution Width 14.1 % (11.5-14.5); White Blood Count 3.6 K/mm3 (4.5-10.0)
[2024-05-31 18:34] LABS: Add Urine Microscopic? YES; Appearance Urine Clear (Clear); Bacteria Urine 2+ /hpf; Bilirubin Urine Negative (Negative); Blood Urine Negative (Negative); Color Urine Yellow (Yellow); Glucose Urine UA Negative (Negative); Ketones Urine Negative (Negative); Leukocyte Esterase Ur Negative LEU/UL (Negative); Need Manual Microscopic Reviewed; Nitrate Urine Negative (Negative); Non Pathogenic Casts 0-2; Protein Urine 2+ mg/dL (Negative); RBC Urine 0-2 /hpf (0-2); Specific Grav Ur 1.019 (1.001-1.035); Squamous Epithelial Cell Urine None Seen /hpf (Few); Urobilinogen Urine 0.2 mg/dL (<2.0); WBC Urine 0-5 /hpf (0-3); pH Urine 5.5 (5.0-9.0)
[2024-05-31 18:40] LABS: Cholesterol 173 mg/dL (0-200); HDL Direct 39 mg/dL; Triglycerides 104 mg/dL (<150)
[2024-05-31 18:44] LABS: Free T4 Free Thyroxine 1.28 ng/dL (0.78-2.19)
[2024-05-31 18:50] LABS: LDL Cholesterol Direct 81 mg/dL
[2024-05-31 18:53] LABS: Anion Gap 9 mmol/L (4-12); Blood Urea Nitrogen 46 mg/dL (7-17); CRP 2.7 mg/dL (<1.0); Calcium 10.7 mg/dL (8.4-10.2); Carbon Dioxide 28 mmol/L (22-30); Chloride 98 mmol/L (98-107); Estimated Glomerular Filt Rate 30; Glucose 93 mg/dL (65-110); Potassium 4.5 mmol/L (3.4-5.0); Sodium 135 mmol/L (137-145)
[2024-05-31 19:03] LABS: Iron 44 ug/dL (37-170)
[2024-05-31 19:17] LABS: Percent Iron Saturation 17 % (20-50)
[2024-05-31 19:59] LABS: Folic Acid 8.4 ng/mL (2.76->20); Vitamin B12 > 1000.0 pg/mL (239-931)
== END 2024-05-31 11:25 | disposition home or self-care (01) ==
LOC: ANHGOSHLAB 11:26
PROVIDERS: Nurse Practitioner Family; PCP Family Medicine; Visit Provider Nurse Practitioner Family
DX: R63.4 Abnormal weight loss (principal); K63.3 Ulcer of intestine; K21.9 Gastro-esophageal reflux disease without esophagitis; D50.9 Iron deficiency anemia, unspecified; R41.3 Other amnesia; R26.89 Other abnormalities of gait and mobility; E03.9 Hypothyroidism, unspecified; E78.5 Hyperlipidemia, unspecified
CPT/HCPCS: 36415; 80048; 80061; 81001; 82607; 82728; 82746; 83540; 83550; 84439; 84443; 85027; 86140

== ENCOUNTER 2024-06-09 09:49 | Outpatient (CLI) | payer MEDICARE, SELFPAY ==
--- NOTE | ~2024-06-09 | MR_ITS ---
MRI of the brain Clinical History: Amnesia Technique: Axial and sagittal T1-weighted images were acquired. These were followed by axial T2-weigh gale, diffusion weighted, gradient, and FLAIR images. Findings: No acute infarct or acute intracranial hemorrhage. There are multiple scattered low signal foci on gradient images, most prominent in the basal ganglia, compatible with prior microhemorrhage. There is extensive chronic white matter disease in the periventricular white matter bilaterally on FL AIR images. There is a 1.4 x 1.0 cm smoothly marginated extra-axial mass at the left CP angle region, most likely meningioma (axial FLAIR image 7). Ventricles and subarachnoid spaces are mildly dilated. Orbits are unremarkable. There is left sphenoi d sinus disease. Remaining paranasal sinuses and mastoid air cells are clear. Major intracranial flow voids are intact. Sagittal midline structures are intact. IMPRESSION: No acute abnormality evident. Findings most compatible with amyloid angiopathy, with extensive chronic white matter disease and yvonne dence of prior scattered microhemorrhages. Please see details above. 1.4 x 1.0 cm probable meningioma at the left CP angle region. Reviewed, dictated and finalized at [facility]. IMPRESSION: No acute abnormality evident. Findings most compatible with amyloid angiopathy, with extensive chronic white matter disease and evidence of prior scattered microhemorrhages. Please see det ails above. 1.4 x 1.0 cm probable meningioma at the left CP angle region.
--- OUTSIDE RECORDS SUMMARY | 2024-06-09 09:53 | XMS_ITS | Clinical Summary ---
Author Organization [facility] Address [address] [place] [address] Care Team Providers Care Tree Climber Name Role Phone Unavailable Primary Care Provider [...] on file Legal Sex Female 3:45 AM ORDER ENTRY REPRESENTATIVE Gender Identity Not on file Sexual Orientation Not on file Last Filed Vital Signs Vital Sign Reading Time Taken Comments Blood Pressure 120/64 01/04/2017 12:58 PM ORDER ENTRY REPRESENTATIVE Pulse 65 01/04/2017 12:58 PM ORDER ENTRY REPRESENTATIVE Temperature 36.5 C (97.7 F) 01/04/2017 12:58 PM ORDER ENTRY REPRESENTATIVE Respiratory Rate 18 01/04/2017 12:58 PM ORDER ENTRY REPRESENTATIVE Oxygen Saturation 97% 01/04/2017 12:58 PM ORDER ENTRY REPRESENTATIVE Inhaled Oxygen Concentration - - Weight 62.6 kg (138 lb) 01/04/2017 12:58 PM ORDER ENTRY REPRESENTATIVE Height 152.4 cm (5') 01/04/2017 12:58 PM ORDER ENTRY REPRESENTATIVE Body Mass Index 26.95 01/04/2017 12:58 PM ORDER ENTRY REPRESENTATIVE Plan of Treatment Health Maintenance Due Date [...] contacted. Electronically signed by: Nathan clark/suzie:05/15/2017 14:18:37 Overhead Cleaner Maintainer: Cher CARPENTER(Tigre)(M), [facility] letter sent: Additional Imaging Reading location: [facility] BI-RADS: 0 Additional Imaging Evaluation Needed [...] contacted. Electronically signed by: Nathan clark/suzie:05/15/2017 14:18:37 Overhead Cleaner Maintainer: Cher CARPENTER(Tigre)(M), [facility] letter sent: Additional Imaging Reading location: [facility] BI-RADS: 0 Additional Imaging Evaluation Needed [facility] Mario Britt MD IMG MAMMO ORDERABLES Kena l Result from Last 3 Months or Most Recently Relevant to Health Maintenance Insurance MEDICARE C HUMANA
--- OUTSIDE RECORDS SUMMARY | 2024-06-09 09:53 | XMS_ITS ---
Author Organization [facility] Address [address] [place] [address] VIDHYA Johnson [address] Care Team Providers Care Wheel Adjuster Name Role Phone Anabella CARMEN, Joy Primary Care Provider Unavailable Feng Hendrickson Unavailable [phone] ALLERGIES Allergen (clinical drug ingredient) Drug/Non Drug [...] Location Date Provider Diagnosis [facility] [address] [place] [phone] 05/10/2024 Feng Chunchrissykaren Sacroiliitis, not elsewhere classified M46.1 ASSESSMENTS Encounter Date Diagnosis Assessment Notes Treatment Notes Treatment Clinical Notes 05/10/2024 Sacroiliitis, not elsewhere classified (ICD-10 - M46.1) PLAN OF TREATMENT Next Appt Details Follow Up: 06/03/24 OPV, Reas on: Provider Name:Feng bean, 07/01/2024 11:00:00 AM, [address] [place] [address], [phone], Procedure Notes * Category Sub-Category Detail Notes [...] discharged home in good condition 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 X-ray time: 9 seconds Progress Notes [...] axial low back pain. Gonzalo's, Gaenslen's and [place]'s tests are positive bilaterally. There is severe [...]
--- OUTSIDE RECORDS SUMMARY | 2024-06-09 09:53 | XMS_ITS ---
Author Organization [facility] Address [address] [place] [address] VIDHYA Johnson [address] Care Team Providers Care Print Production Coordinator Name Role Phone Anabella CARMEN, Joy Primary Care Provider Unavailable Feng Hendrickson Unavailable [phone] ALLERGIES Allergen (clinical drug ingredient) Drug/Non Drug [...] Location Date Provider Diagnosis [facility] [address] [place] [address] [place] [address] 05/03/2024 Feng Hendrickson Spondylosis without myelopathy or radiculopathy, lumbar region M47.816 ; Sacroiliitis, not elsewhere classified M46.1 ; Radiculopathy, lumbar region M54.16 ; Postlaminectomy syndrome, not elsewhere classified M96.1 ; Other intervertebral disc degeneration, lumbar region M51.36 ; Osseous stenosis of neural canal of lumbar region M99.33 ; 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 and 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 The [place] and [place] PDMP were reviewed and were appropriate 05/03/2024 [...] comply with the above. The [place] and [place] PDMP were reviewed and were appropriate Other [...] injection, Reason: Provider Name:Feng Olivo Lay bean, 07/01/2024 11:00:00 AM, [address] [place] [address], [phone], Progress Notes * Examination Category Sub-Category Detail [...] axial low back pain. Gonzalo's, Gaenslen's and [place]'s tests are positive bilaterally. There is severe [...]
--- OUTSIDE RECORDS SUMMARY | 2024-06-09 09:53 | XMS_ITS | Clinical Summary ---
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
--- OUTSIDE RECORDS SUMMARY | 2024-06-09 09:53 | XMS_ITS ---
Author Organization [facility] Address [address] [place] [address] VIDHYA Johnson [address] Care Team Providers Care Business Services Sales Representative Name Role Phone Anabella CARMEN, Joy Primary Care Provider Unavailable Feng Hendrickson Unavailable [phone] ALLERGIES Allergen (clinical drug ingredient) Drug/Non Drug [...] Duration) Notes Start Date End Date Status Carvedilol 3.125 MG TAKE 1 TABLET BY ROYA TH EVERY 12 HOURS WITH A MEAL/FOOD Oral for 90 Active HYDROcodone-Acetaminophen 10-325 MG 1 tablet Orally every 4 to 6 hrs as needed for severe pain (max 5x/day) for 30 days 06/03/2024 Active Losartan Potassium-HCTZ 100-25 MG TAKE 1 TABLET BY MOUTH EVERY DAY Oral for 90 Active Metoprolol Succinate ER 25 MG TAKE 1 TABLET BY MOUTH EVERY DAY Oral for 90 Active tiZANidine HCl 4 MG 1 tablet as needed O ral 3 x day muscle spasm for 30 days 12/13/2019 Active hydrOXYzine HCl 25 MG TAKE 1 TABLET BY M OUTH THREE TIMES A DAY NEEDED FOR ANXIETY Oral for 10 Active Narcan 4 MG/0.1ML 1 actuation in one n ostril x1, Nasally 2-3 minutes as needed until the patient is responsive or EMS arrives Active Amphetamine-Dextroamphetam ine 20 MG TAKE 1 TABLET BY MOUTH EVERY DAY Oral for 30 Active Voltaren 1 % apply 4 grams to ji nful joint(s) Transdermal 4x/day as needed for pain for 30 days Active Ferrous Sulfate 325 (65 Fe) MG 325 MG ORALLY TWICE A DAY Oral for 90 Active Fluticasone Propionate 50 MCG/ACT 1 spray in each nostril Nasal Twice a day Active Losartan Potassium 25 MG 1 tablet Oral Once a day Active Lidocaine-Prilocaine 2.5-2.5 % as directed External Active [employer] D3 50 MCG (2000 UT) TAKE 1 CAPSULE B Y MOUTH EVERY DAY Oral for 90 Active rOPINIRole HCl 0.5 MG 1 tablet 1 to 3 ho urs before bedtime Orally Once a day Active ZyPREXA 5 MG 1 tablet Orally Once a day Active amLODIPine Besylate 5 MG 1 tablet Oral Once a day Active ProAir HFA 108 (90 Base) MCG/ACT 2 puffs as needed Inhalation every 6 hrs 09/25/2017 Active Vitamin D3 1000 UNIT 1 capsule Orally On a day 09/25/2017 Active Omeprazole 20 MG 1 capsule 30 minutes before morning meal Oral Once a day Active traZODone HCl 100 MG 1 tablet at bedtime Oral Once a day Active Fluticasone-Salmeterol 250-50 MCG/ACT Inhalation for 30 [...] 10 years VITAL SIGNS Blood pressure systolic 154 mm Hg 06/04/19 25 Blood pressure diastolic 95 mm Hg 025 Heart Rate 79 /min 06/03/2024 Respiratory Rate 18 /min 06/03/2024 Height 60 in 06/03/2024 Weight 134 lbs 06/03/2024 BMI 26.17 kg/m2 06/03/2024 Encounters Encounter Location Date Provider Diagnosis [facility] [address] [place] [address] [place] [address] 06/03/2024 Feng Hendrickson Sacroiliitis, not elsewhere classified M46.1 ; Radiculopathy, lumbar region M54.16 ; Spondylosis without myelopathy or radiculopathy, lumbar region M47.816 ; Postlaminectomy syndrome, not elsewhere classified M96.1 ; Other intervertebral disc degeneration, lumbar region M51.36 ; Osseous stenosis of neural canal of lumbar region M99.33 ; 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 06/03/2024 Other The above-named patient was evaluated in [...] severe pain (max 5x/day) for 30 days 06/03/2024 Treatment Notes Assessment Notes Radiculopathy, lumbar region [...] to fully comply with the above. The [place] and [place] PDMP were reviewed and were appropriate retirement (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 of o piate analgesic The patient submitted a urine sample for drug screening to ensure compliance. Other The above-named patient was evaluated in [...] 4 Weeks OPV, Reas on: Provider Name:Feng bean, 07/01/2024 11:00:00 AM, [address] [facility] [address], [place], [address], Progress Notes * Examination Category Sub-Category Detail [...] axial low back pain. Gonzalo's, Gaenslen's and [place]'s tests are positive bilaterally. There is severe [...]
--- OUTSIDE RECORDS SUMMARY | 2024-06-09 09:53 | XMS_ITS | Clinical Summary ---
Author Organization [facility] Address [facility] [place] [address] Care Team Providers Care Denture Contour Wire Specialist Name Role Phone Dolly Grimes SPRING FITTER HELPER Primary Care Provider [phone] Encounters Date Type Department Care Team Description 05/21/2024 9:00 AM CDT - 05/21/2024 11:59 PM CDT Hospital Encounter [facility] MRI [address] [place] [address] Félix Galindo MD Discharge Disposition: Home or Self Care (Routine Discharge) 05/21/2024 Travel from Last 3 Months Social History Tobacco Use Types Packs/Day Years Used Date Smoking Tobacco: Never Assessed Comments Unknown Sex and Gender Information Value Date Recorded Sex Assigned at Female 04/18/2024 4:10 PM ASSISTANT DIRECTOR OF NURSING Legal Sex Female 4:08 PM ASSISTANT DIRECTOR OF NURSING Gender Identity Not on file Sexual Orientation [...] - 1-dose 75+ series) 2029 Pneumococcal Vaccine: 50+ Years Completed 04/05/2024, 08/27/2014 Meningococcal B Vaccine [...] 11:26 AM Narrative 05/23/2024 2:13 PM CDT [facility] [address] [place] [id number] Examination: MR enterography with and without IV [...] Procedure Note Prudencio Fischer MD - 05/23/[address] [address] Examination: MR enterography with and without IV [...] 3 Months Insurance [employer] MEDICAID Care Teams Denture Contour Wire Specialist Relationship Specialty Start Date End Date Dolly Grimes FNP [address] [place] [address] [facility] [address] [place] [address] PCP - General Nurse Practitioner Family 05/21/24
--- OUTSIDE RECORDS SUMMARY | 2024-06-09 09:54 | XMS_ITS | Patient Health Record ---
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 [employer] Name Role Phone Anabella CARMEN, Joy Primary Care Provider Unavailable Feng Hendrickson Unavailable [phone] ALLERGIES Allergen (clinical drug ingredient) Drug/Non Drug Allergy documented on EMR Reaction Allergy Type Onset Date Status aripiprazole Aripiprazole nausea and vomiting Drug Allergy Active clindamycin Clindamycin diarrhea Drug Allergy Act lucian fentanyl Fentanyl nausea Drug Allergy Active morphine Morphine rash/itching Drug Allergy Acti ve RESULTS Component Value Reference Range Notes Fuzmo Results (Not yet reviewed by provider) Interpretation: Performing Lab:[id number] [employer], [id number] [facility] [id number] Angelika Garcia MD Notes/Report: Codeine negative 1 ng/mL Morphine negative 1 ng/mL Hydrocodone positive-120.252 1 ng/mL Norhydrocodone Quantification positive-8.450 2 ng/mL Hydromorphone negative 1 ng/mL Oxycodone negative 1 ng/mL Noroxycodone Quantification negative 2 ng/mL Oxymorphone negative 1 ng/mL Fentanyl Quantification negative 0.2 ng/mL Norfentanyl Quantification negative 1 ng/mL Methadone negative 2 ng/mL EDDP (Methadone metabolite) negative 2 ng/mL Tramadol Quantification negative 5 ng/mL Z-Uwgnzcdbe-Cfubpjaa Quantification negative 5 ng/ mL Alprazolam negative [...] 6-WALTER (Heroin metabolite) Quantification negative 1 ng/mL [facility] Results (Not yet reviewed by provider) Interpretation: Performing Lab:[id number] [facility], [address] [address] [facility] [id number] Angelika Garcia MD Notes/Report: Acetyl fentanyl: Fentanyl Negative. Acetyl norfentanyl: Fentanyl Negative. Acr yl fentanyl: Fentanyl Negative. Carfentanil: Fentanyl Negative. Para-fluorofent anyl: Fentanyl Negative. Codeine Quantification negative 50 ng/mL Morphine Quantification negative 50 ng/mL Hydrocodone Quantification positive-3082.837 50 ng/mL Norhydrocodone Quantification positive-2548.754 50 ng/ mL Hydromorphone Quantification positive-101.446 50 ng/mL Oxycodone Quantification negative 50 ng/mL Noroxycodone Quantification negative 50 ng/mL Oxymorphone Quantification negative 50 ng/mL Fentanyl Quantification negative 1 ng/mL Norfentanyl Quantification negative 8 ng/mL Methadone Quantification negative 100 ng/mL EDDP (Methadone metabolite) Quantification negative 100 ng/mL Tramadol Quantification negative 100 ng/mL T-oysoaysdz-lpyclohm Quantification negative 100 n g/mL D-Fggoktzhg-Avamudoa Quantification negative 100 n g/mL Alpha-Hydroxyalprazolam Quantification negative 20 ng/mL 6-Whfuq-Sjevrdurgf Quantification negative 20 ng/m L Lorazepam Quantification negative 40 ng/mL Nordiazepam Quantification negative 40 ng/mL Temazepam Quantification negative 50 ng/mL Oxazepam Quantification negative 40 ng/mL Amphetamine Quantification positive-6264.671 100 ng/mL Methamphetamine Quantification negative 100 ng/mL Cocaine metabolite Quantification negative 50 ng/m L cTHC (Marijuana metabolite) Quantification negative 15 ng/mL 6-WALTER (Heroin metabolite) Quantification negative 10 ng/mL Acetyl fentanyl Quantification Fen Neg 2 ng/mL Acetyl norfentanyl Quantification Fen Neg 5 ng/mL Acryl fentanyl Quantification Fen Neg 1 ng/mL Carfentanil Quantification Fen Neg 2 ng/mL Para-fluorofentanyl Quantification Fen Neg 1 ng/m L Mitragynine (Kratom alkaloid ) Quantification negative 1 ng/mL 7-LC-Tpeszwqfuga (Kratom alk aloid) Quantification negative 1 ng/mL Ethyl Glucuronide Quantification negative 500 ng/m L Ethyl Sulfate Quantification negative 500 ng/mL [facility] Results (Not yet reviewed by provider) Interpretation: Performing Lab:[id number] [facility], [address] [facility] [address] Angelika Garcia MD Notes/Report: Acetyl fentanyl: Fentanyl [...] 100 ng/mL Tramadol Quantification negative 100 ng/mL Z-rrwcpidwd-kepugiim Quantification negative 100 n g/mL R-Hgrryadfn-Klbqbqut Quantification negative 100 n g/mL Alpha-Hydroxyalprazolam Quantification negative 20 ng/mL 1-Dxwjs-Pnajuzlbgs Quantification negative 20 ng/m L Lorazepam Quantification [...] (Kratom alkaloid ) Quantification negative 1 ng/mL 7-DL-Hqtowvzfktk (Kratom alk aloid) Quantification negative 1 ng/mL Ethyl Glucuronide Quantification positive-814.348 500 ng/mL Ethyl Sulfate Quantification negative 500 ng/mL [facility] Results (Not yet reviewed by provider) Interpretation: Performing Lab:[id number] [facility], [address] [facility] [address] Angelika Garcia MD Notes/Report: 4-ANPP: Fentanyl Negative. Acetyl fentanyl: Fentanyl Negative. Acetyl norfenta nyl: Fentanyl Negative. Acryl fentanyl: Fentanyl Negative. Carfentanil: Fentany l Negative. Para-fluorofentanyl: Fentanyl Negative. Codeine Quantification negative 50 ng/mL Morphine Quantification negative 50 ng/mL Hydrocodone Quantification positive-19839.023 50 ng/mL Norhydrocodone Quantification positive-> 6400 50 [...] 100 ng/mL Tramadol Quantification negative 100 ng/mL E-rapolmtev-phlilein Quantification negative 100 n g/mL X-Fkurvllql-Nsylgguz Quantification negative 100 n g/mL Tapentadol Quantification negative 50 ng/mL Meperidine Quantification negative 50 ng/mL Normeperidine Quantification negative 50 ng/mL Alpha-Hydroxyalprazolam Quantification negative 20 ng/mL 8-Ezhvz-Xrdcvshjkf Quantification negative 20 ng/m L Lorazepam Quantification negative 40 ng/mL Nordiazepam Quantification negative 40 ng/mL Temazepam Quantification negative 50 ng/mL Oxazepam Quantification negative 40 ng/mL Amphetamine Quantification positive-> 55231 100 ng/mL Methylphenidate Quantification negative 50 ng/mL [...] 10 ng/mL Flubromazolam Quantification negative 10 ng/mL MZD826 metabolite Quantification negative 10 ng/mL FWJ862 metabolite Quantification negative 10 ng/mL RCS4 metabolite Quantification negative 10 ng/mL XLR11/UR144 metabolite negative 10 ng/mL 5F-ADB-M7 negative 10 ng/mL BR-FXSPFBFQ-M3 negative 10 ng/mL QMLC-GUXSMSIZ-Y0 negative 10 ng/mL Eutylone Quantification negative 10 ng/mL Methylone Quantification negative 3 ng/mL Xylazine Quantification negative 10 ng/mL 4-hydroxy Xylazine Quantification negative 10 ng/m L Mitragynine (Kratom alkaloid ) Quantification negative 1 ng/mL 9-FQ-Ncssmwbuztm (Kratom alk aloid) Quantification negative 1 ng/mL [...] (max 5x/day) for 30 days 06/03/2024 Active ZyPREXA 5 MG 1 tablet Orally [...] D3 1000 UNIT 1 capsule Orally On ce a day 09/25/2017 Active Amphetamine-Dextroamphetam ine 20 MG TAKE 1 TABLET BY MOUTH EVERY DAY Oral for 30 Active Fluticasone Propionate 50 MCG/ACT 1 spray [...] muscle spasm for 30 days 12/13/2019 Active traZODone HCl 100 MG 1 tablet [...] TWICE A DAY Oral for 90 Active [facility] D3 50 MCG (2000 UT) TAKE 1 CAPSULE B Y MOUTH EVERY DAY Oral for 90 Active Fluticasone-Salmeterol 250-50 MCG/ACT Inhalation for 30 Active FLUoxetine HCl 40 MG 1 capsule Oral Once a day Active rOPINIRole HCl 0.5 MG 1 tablet 1 to 3 ho urs before bedtime Orally Once a day Active SOCIAL HISTORY Tobacco [...] (F40.231) Active confirmed Fear of medical treatment (888823774) Problem Brachial plexus disorders (G54.0) Active confirmed Brachial p cassandra disorder (5577614) Problem Chronic pain syndrome (G89.4) Active confirmed Chronic ji n syndrome (637795665) Problem Unilateral primary osteoarthritis, left knee (M17.12) Active confirmed Osteoarth ritis of knee (517201105) Problem Unspecified osteoarthritis, unspecified site (M19.90) Active confirmed Osteoarthritis (667188677) Problem Pain in right shoulder (M25.511) Active confirmed Pain of r ight shoulder region (finding) (4543029132) Problem Pain in left shoulder (M25.512) Active confirmed Shoulder joint pain (839131642) Problem Sacroiliitis, not elsewhere classified (M46.1) Active confirmed Solitary sacroiliitis (134323399) Problem Spondylosis without myelopathy or radiculopathy, 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16) Active confirmed Lumbar radiculopathy (262611499) Problem Postlaminectomy syndrome, not elsewhere classified (M96.1) Active confirmed Post-lami nectomy syndrome (22471527) Problem Osseous stenosis of neural canal 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) Active confirmed Spinal stenosis of lumbar region (13315354) Problem Intervertebral disc stenosis of neural canal of lumbar region (M99.53) Active confirmed Spinal stenosis of lumbar region (15715677) 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 Pt discharged to home ambulatory with steady gait, no sign of acute distress. Blood pressure diastolic 95 mm Hg 06/03/2024 Height 60 in 06/03/2024 Blood pressure systolic 154 mm Hg 06/03/2024 Weight 134 lbs 06/03/2024 BMI 26.17 kg/m2 06/03/2024 Encounters Encounter Location Date Provider Diagnosis [facility] [address] [place] [address] [place] [address] 07/11/2023 Feng Stynowick Radiculopathy, lumba r region M54.16 [facility] [address] [place], [place] [address], [place] [address] 09/07/2023 Feng Stynowick [facility] [address] [place], [place] [address], [place] [address] 10/24/2023 Feng Stynowick Radiculopathy, lumba r region M54.16 [facility] [address] [place], [place] [address], [place] [address] 10/26/2023 Feng Stynowick Radiculopathy, lumba r region M54.16 [facility] [address] [place], [place] [address], [place] [address] 12/19/2023 Feng Stynowick Radiculopathy, lumba r region M54.16 [facility] [address] [place], [place] [address], [place] [address] 01/29/2024 Feng Stynowick Radiculopathy, lumba r region M54.16 [facility] [address] [place] [address] [place] [address] 02/19/2024 Feng Stynowick Radiculopathy, lumba r region M54.16 [facility] [address] [place], [place] [address], [place] [address] 03/18/2024 Feng Stynowick [facility] [address] [place], [place] [address], [place] [address] 03/27/2024 Feng Stynowick [facility] [address] [place], [place] [address], [place] [address] 04/26/2024 Feng Stynowick Radiculopathy, lumba r region M54.16 [facility] [address] [place] [address] [place] [address] 03/26/2024 Feng Stynowick Spondylosis without myelopathy or radiculopathy, lumbar region M47.816 and Spondylosis without myelopathy or radiculopathy, lumbosacral region M47.817 [facility] [address] [place] [address] [place] [address] 05/10/2024 Feng Stynowick Sacroiliitis, not elsewhere classified M46.1 [facility] [address] [place] [address] [place] [address] 02/16/2024 Feng Stynowick Radiculopathy, lumba r region M54.16 ; Intervertebral disc disorders with radiculopathy, lumbar region M51.16 and Osseous stenosis of neural canal of lumbar region M99.33 [facility] [address] [place] [address] [place] [address] 01/02/2024 Feng Stynowick Sacroiliitis, not elsewhere classified M46.1 [facility] [address] [place] [address] [place] [address] 11/06/2023 Feng Stynowick Radiculopathy, lumba r region M54.16 ; Intervertebral disc disorders with radiculopathy, lumbar region M51.16 and Osseous stenosis of neural canal of lumbar region M99.33 [facility] [address] [place] [address] [place] [address] 09/06/2023 Feng Stynowick Spondylosis without myelopathy or radiculopathy, lumbar region M47.816 and Spondylosis without myelopathy or radiculopathy, lumbosacral region M47.817 [facility] [address] [facility] [place] [address] 07/18/2023 Feng Stynowick [facility] [address] [place] [address] [place] [address] 07/24/2023 Feng Stynowick Radiculopathy, lumba r region M54.16 ; Other intervertebral disc degeneration, lumbar region M51.36 and Osseous stenosis of neural canal of lumbar region M99.33 [facility] [address] [place] [address] 06/30/2023 Feng Stynowick Radiculopathy, lumba r region M54.16 ; Sacroiliitis, not elsewhere classified M46.1 ; Spondylosis without myelopathy or radiculopathy, lumbar region M47.816 ; Postlaminectomy syndrome, not elsewhere classified M96.1 ; Other intervertebral disc degeneration, lumbar region M51.36 ; Osseous stenosis of neural canal of lumbar region M99.33 ; 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 and FCI (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 of 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 Z79.891 [facility] [address] [place] [address] 07/31/2023 Feng Stynowick Radiculopathy, lumba r region M54.16 ; Sacroiliitis, not elsewhere classified M46.1 ; Spondylosis without myelopathy or radiculopathy, lumbar region M47.816 ; Postlaminectomy syndrome, not elsewhere classified M96.1 ; Other intervertebral disc degeneration, lumbar region M51.36 ; Osseous stenosis of neural canal of lumbar region M99.33 ; 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 and 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 Z79.891 [facility] [address] [place] [address] 08/28/2023 Feng Stynowick Radiculopathy, lumba r region M54.16 ; Spondylosis without myelopathy or radiculopathy, lumbar region M47.816 ; Sacroiliitis, not elsewhere classified M46.1 ; Postlaminectomy syndrome, not elsewhere classified M96.1 ; Other intervertebral disc degeneration, lumbar region M51.36 ; Osseous stenosis of neural canal of lumbar region M99.33 ; 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 and [facility]CI (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 of 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 Z79.891 [facility] [address] [place] [address] 09/27/2023 Feng Stynowick Radiculopathy, lumba r region M54.16 ; Spondylosis without myelopathy or radiculopathy, lumbar region M47.816 ; Sacroiliitis, not elsewhere classified M46.1 ; Postlaminectomy syndrome, not elsewhere classified M96.1 ; Other intervertebral disc degeneration, lumbar region M51.36 ; Osseous stenosis of neural canal of lumbar region M99.33 ; 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 and [facility]CI (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 of 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 Z79.891 [facility] [address] [place] [address] 10/04/2023 Feng Stynowick [facility] [address] [place] [address] 10/30/2023 Feng Stynowick Radiculopathy, lumba r region M54.16 ; Spondylosis without myelopathy or radiculopathy, lumbar region M47.816 ; Sacroiliitis, not elsewhere classified M46.1 ; Postlaminectomy syndrome, not elsewhere classified M96.1 ; Other intervertebral disc degeneration, lumbar region M51.36 ; Osseous stenosis of neural canal of lumbar region M99.33 ; 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 and [facility]CI (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 of 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 Z79.891 [facility] [address] [place] [address] 10/24/2023 Feng Stynowick Radiculopathy, lumba r region M54.16 ; Spondylosis without myelopathy or radiculopathy, lumbar region M47.816 ; Sacroiliitis, not elsewhere classified M46.1 ; Postlaminectomy syndrome, not elsewhere classified M96.1 ; Other intervertebral disc degeneration, lumbar region M51.36 ; Osseous stenosis of neural canal of lumbar region M99.33 ; 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 and [facility]CI (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 of 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 Z79.891 [facility] [address] [place] [address] 11/29/2023 Feng Stynowick Radiculopathy, lumba r region M54.16 ; Spondylosis without myelopathy or radiculopathy, lumbar region M47.816 ; Sacroiliitis, not elsewhere classified M46.1 ; Postlaminectomy syndrome, not elsewhere classified M96.1 ; Other intervertebral disc degeneration, lumbar region M51.36 ; Osseous stenosis of neural canal of lumbar region M99.33 ; 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 and [facility]CI (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 of 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 Z79.891 [facility] [address] [place] [address] 12/27/2023 Feng Stynowick Radiculopathy, lumba r region M54.16 ; Sacroiliitis, not elsewhere classified M46.1 ; Spondylosis without myelopathy or radiculopathy, lumbar region M47.816 ; Postlaminectomy syndrome, not elsewhere classified M96.1 ; Other intervertebral disc degeneration, lumbar region M51.36 ; Osseous stenosis of neural canal of lumbar region M99.33 ; 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 and [facility]CI (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 of 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 Z79.891 [facility] [address] [place] [address] 01/25/2024 Feng Stynowick Radiculopathy, lumba r region M54.16 ; Sacroiliitis, not elsewhere classified M46.1 ; Spondylosis without myelopathy or radiculopathy, lumbar region M47.816 ; Postlaminectomy syndrome, not elsewhere classified M96.1 ; Other intervertebral disc degeneration, lumbar region M51.36 ; Osseous stenosis of neural canal of lumbar region M99.33 ; 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 and 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 Z79.891 [facility] [address] [place] [address] 01/29/2024 Feng Stynowick Radiculopathy, lumba r region M54.16 ; Sacroiliitis, not elsewhere classified M46.1 ; Spondylosis without myelopathy or radiculopathy, lumbar region M47.816 ; Postlaminectomy syndrome, not elsewhere classified M96.1 ; Other intervertebral disc degeneration, lumbar region M51.36 ; Osseous stenosis of neural canal of lumbar region M99.33 ; 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 and FCI (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 of 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 Z79.891 [facility] [address] [place] [address] 02/06/2024 Feng Stynowick Radiculopathy, lumba r region M54.16 ; Sacroiliitis, not elsewhere classified M46.1 ; Spondylosis without myelopathy or radiculopathy, lumbar region M47.816 ; Postlaminectomy syndrome, not elsewhere classified M96.1 ; Other intervertebral disc degeneration, lumbar region M51.36 ; Osseous stenosis of neural canal of lumbar region M99.33 ; 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 and 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 Z79.891 [facility] [address] [place] [address] 06/03/2024 Feng Stjohnna Sacroiliitis, not elsewhere classified M46.1 ; Radiculopathy, lumbar region M54.16 ; Spondylosis without myelopathy or radiculopathy, lumbar region M47.816 ; Postlaminectomy syndrome, not elsewhere classified M96.1 ; Other intervertebral disc degeneration, lumbar region M51.36 ; Osseous stenosis of neural canal of lumbar region M99.33 ; 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 and FCI (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 of 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 Z79.891 [facility] [address] [place] [address] 03/06/2024 Feng Hendrickson Radiculopathy, lumba r region M54.16 ; Spondylosis without myelopathy or radiculopathy, lumbar region M47.816 ; Sacroiliitis, not elsewhere classified M46.1 ; Postlaminectomy syndrome, not elsewhere classified M96.1 ; Other intervertebral disc degeneration, lumbar region M51.36 ; Osseous stenosis of neural canal of lumbar region M99.33 ; 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 and [facility]CI (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 of 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 Z79.891 [facility] [address] [place] [address] 05/03/2024 Feng Stynowick Spondylosis without myelopathy or radiculopathy, lumbar region M47.816 ; Sacroiliitis, not elsewhere classified M46.1 ; Radiculopathy, lumbar region M54.16 ; Postlaminectomy syndrome, not elsewhere classified M96.1 ; Other intervertebral disc degeneration, lumbar region M51.36 ; Osseous stenosis of neural canal of lumbar region M99.33 ; 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 and [facility]CI (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 of 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 Z79.891 [facility] [address] [facility] [place] [address] 04/05/2024 Feng Hendrickson Radiculopathy, lumba r region M54.16 ; Spondylosis without myelopathy or radiculopathy, lumbar region M47.816 ; Sacroiliitis, not elsewhere classified M46.1 ; Postlaminectomy syndrome, not elsewhere classified M96.1 ; Other intervertebral disc degeneration, lumbar region M51.36 ; Osseous stenosis of neural canal of lumbar region M99.33 ; 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 and [facility]CI (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 of 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 Z79.891 ASSESSMENTS Encounter Date Diagnosis Assessment Notes Treatment Notes Treatment Clinical Notes 06/30/2023 Radiculopathy, lumbar region (ICD-10 - M54.16) [...] to fully comply with the above. The [place] PDMP were reviewed and were appropriate 06/30/2023 [...] to fully comply with the above. The [place] PDMP were reviewed and were appropriate 07/31/2023 [...] to fully comply with the above. The [facility] PDMP were reviewed and were appropriate 09/27/2023 [...] to fully comply with the above. The [place] PDMP were reviewed and were appropriate 10/24/2023 [...] to fully comply with the above. The [place] PDMP were reviewed and were appropriate 10/30/2023 [...] to fully comply with the above. The [facility] PDMP were reviewed and were appropriate 11/29/2023 [...] to fully comply with the above. The [facility] PDMP were reviewed and were appropriate [...] to fully comply with the above. The [place] PDMP were reviewed and were appropriate 12/27/2023 [...] to fully comply with the above. The [facility] PDMP were reviewed and were appropriate [...] to fully comply with the above. The [facility] PDMP were reviewed and were appropriate [...] to fully comply with the above. The [place] PDMP were reviewed and were appropriate 02/06/2024 [...] to fully comply with the above. The [place] PDMP were reviewed and were appropriate 03/06/2024 [...] to fully comply with the above. The [place] PDMP were reviewed and were appropriate 04/05/2024 Spondylosis without myelopathy or radiculopathy, lumbar region (ICD-10 - M47.816) 05/03/2024 Spondylosis without myelopathy or radiculopathy, lumbar [...] 04/26/2024 Radiculopathy, lumbar region (ICD-10 - M54.16) 05/10/2024 Sacroiliitis, not elsewhere classified (ICD-10 - M46.1) 06/03/2024 Sacroiliitis, not elsewhere classified (ICD-10 - [...] to fully comply with the above. The [place] PDMP were reviewed and were appropriate 06/03/2024 Spondylosis without myelopathy or radiculopathy, lumbar region (ICD-10 - M47.816) 05/03/2024 Radiculopathy, lumbar region (ICD-10 - M54.16) [...] to fully comply with the above. 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) 05/03/2024 Fear of injections and transfusions (ICD-10 [...] injections and transfusions (ICD-10 - F40.231) 06/30/2023 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 11/29/2023 [facility] (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 of 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 (ICD-10 - 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 Hendirckson. I have discussed and reviewed all of [...] CONCERNS HAVE BEEN ADDRESSED. RN initials ___JW___ 04/05/2024 Other The above-named patient [...] with Patient and Medical Decision Makin minutes 06/03/2024 Other The above-named patient was evaluated [...] Lumbar Spine with and without Cont rast ([id number]) 02/01/2022 MRI : Lumbar Spine with and without Cont rast ([id number]) 04/25/2022 XRAY right shoulder 09/09/2020 [facility] 01/03/2022 [facility] 03/29/2022 [facility] 09/16/2022 [facility] 06/01/2023 [facility] 08/28/2023 [facility] 11/29/2023 [facility] 03/06/2024 [facility] 05/31/2024 Next Appt Details Provider Name:Feng bean, 07/01/2024 11:00:00 AM, [address] [place], [address], Insurance Providers Payer Name Payer Address Payer Phone Subscriber Number Group Number Insured Name Patient Relationship to Insured Coverage Start Date Coverage End Date [employer] Claims [address] [address] [place] [address] [phone] [id number] MIKE PADGETT Self - patient is the insured 8 MEDICAL (GENERAL) HISTORY Medical History History ICD Code Hypertension Stomach Ulcers Depression Insomnia GERD Anemia Asthma Migraine Surgical History Surgery Date(Month/Year) Pain Pump Removal 2011 Multiple Lumbar Surgeries
== END 2024-06-09 09:50 | disposition home or self-care (01) ==
PROVIDERS: PCP Family Medicine; Visit Provider Nurse Practitioner Family
DX: R41.3 Other amnesia (principal); R26.89 Other abnormalities of gait and mobility; R93.0 Abnormal findings on diagnostic imaging of skull and head, not elsewhere classified
CPT/HCPCS: 70551

== ENCOUNTER 2024-07-08 12:35 | Outpatient (CLI) | payer MEDICARE, SELFPAY ==
--- OUTSIDE RECORDS SUMMARY | 2024-07-08 12:40 | XMS_ITS | Clinical Summary ---
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 Gender Identity Not on file Sexual Orientation Not on file Last Filed Vital Signs Vital Sign Reading Time Taken Comments Blood Pressure 120/64 01/04/2017 12:58 PM OFFSHORING MANAGER Pulse 65 01/04/2017 12:58 PM OFFSHORING MANAGER Temperature 36.5 C (97.7 F) 01/04/2017 12:58 PM OFFSHORING MANAGER Respiratory Rate 18 01/04/2017 12:58 PM OFFSHORING MANAGER Oxygen Saturation 97% 01/04/2017 12:58 PM OFFSHORING MANAGER Inhaled Oxygen Concentration - - Weight 62.6 kg (138 lb) 01/04/2017 12:58 PM OFFSHORING MANAGER Height 152.4 cm (5') 01/04/2017 12:58 PM OFFSHORING MANAGER Body Mass Index 26.95 01/04/2017 12:58 PM OFFSHORING MANAGER Plan of Treatment Health Maintenance Due [...] contacted. Electronically signed by: Nathan clark/suzie:05/15/2017 14:18:37 Bulk Fluids Handler: Cher CARPENTER(Tigre)(M), [facility] letter sent: Additional Imaging Reading location: [facility] BI-RADS: 0 Additional Imaging Evaluation Needed [...] contacted. Electronically signed by: Nathan clark/suzie:05/15/2017 14:18:37 Bulk Fluids Handler: Cher CARPENTER(Tigre)(M), [facility] letter sent: Additional Imaging Reading location: [facility] BI-RADS: 0 Additional Imaging Evaluation Needed [facility] Mario Britt MD IMG MAMMO ORDERABLES Kena l Result from Last 3 Months or Most Recently Relevant to Health Maintenance Insurance MEDICARE C HUMANA
--- OUTSIDE RECORDS SUMMARY | 2024-07-08 12:40 | XMS_ITS ---
Author Organization [facility] Address [address] [place] [address] VIDHYA Johnson [address] Care Team Providers Care Top Hat Body Maker Name Role Phone Anabella CARMEN, Joy Primary Care Provider Unavailable Feng Hendrickson Unavailable [phone] ALLERGIES Allergen (clinical drug ingredient) Drug/Non Drug [...] Location Date Provider Diagnosis [facility] [address] [place] [address] [place] [address] 06/03/2024 Feng Hendrickson Sacroiliitis, not elsewhere classified M46.1 ; Radiculopathy, lumbar region M54.16 ; Spondylosis without myelopathy or radiculopathy, lumbar region M47.816 ; Postlaminectomy syndrome, not elsewhere classified M96.1 ; Other intervertebral disc degeneration, lumbar region M51.36 ; 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 Gonzalo's, Gaenslen's and [place]'s tests are positive bilaterally. There is severe [...]
--- OUTSIDE RECORDS SUMMARY | 2024-07-08 12:40 | XMS_ITS ---
Author Organization [facility] Address [address] [place] [address] VIDHYA Johnson [address] Care Team Providers Care Durable Medical Equipment Technician Name Role Phone Anabella CARMEN, Joy Primary Care Provider Unavailable Feng Hendrickson Unavailable [phone] ALLERGIES Allergen (clinical drug ingredient) Drug/Non Drug [...] Duration) Notes Start Date End Date Status HYDROcodone-Acetamino phen 10-325 MG 1 tablet Orally every 4 to 6 hrs as needed for severe pain (max 5x/day) for 30 days MAY FILL 07/02/24 07/01/2024 Active Albuterol Sulfate HFA 108 (90 Base) MCG/ACT Inhalation for 16 A ctive Losartan Potassium-HCTZ 100-25 MG TAKE 1 TABLET BY MOUTH EVERY DAY Oral for 90 Active Fluticasone-Salmetero l 250-50 MCG/ACT Inhalation for 30 Active Prolia 60 MG/ML Subcutaneous for 180 Active Amphetamine-Dextroamp hetamine 20 MG TAKE 1 TABLET BY MOUTH EVERY DAY Oral for 30 Active tiZANidine HCl 4 MG 1 tablet as needed Oral 3 x day muscle spasm for 30 days 12/13/2019 Active Carvedilol 3.125 MG TAKE 1 TABLET BY ROYA TH EVERY 12 HOURS WITH A MEAL/FOOD Oral for 90 Active hydrOXYzine HCl 25 MG TAKE 1 TABLET BY M OUTH THREE TIMES A DAY NEEDED FOR ANXIETY Oral for 10 Active Metoprolol Succinate ER 25 MG TAKE 1 TABLET BY MOUTH EVERY DAY Oral for 90 Active Narcan 4 MG/0.1ML 1 actuation in one nostril x1, Nasally 2-3 minutes as needed until the patient is responsive or EMS arrives Active Voltaren 1 % apply 4 grams [...] each nostril Nasal Twice a day Active ZyPREXA 5 MG 1 tablet Orally Once a day Active amLODIPine Besylate 5 MG 1 tablet Oral Once a day Active Losartan Potassium 25 MG 1 tablet Oral Once a day Active ProAir HFA 108 (90 Base) MCG/ACT 2 puffs as needed Inhalation every 6 hrs 09/25/2017 Active Vitamin D3 1000 UNIT 1 capsule Orally On 09/25/2017 Active traZODone HCl 100 MG 1 tablet at bedtime Oral Once a day Active Omeprazole 20 [...] 10 years VITAL SIGNS Blood pressure systolic 198 mm Hg 07/02/19 25 Blood pressure diastolic 111 mm Hg 025 Heart Rate 77 /min 07/01/2024 Respiratory Rate 16 /min 07/01/2024 Height 60 in 07/01/2024 Weight 133 lbs 07/01/2024 BMI 25.97 kg/m2 07/01/2024 Encounters Encounter Location Date Provider Diagnosis [facility] [address] [facility] [place] [address] [place] [address] 07/01/2024 Feng Hendrickson Sacroiliitis, not elsewhere classified M46.1 ; Radiculopathy, lumbar region M54.16 ; Spondylosis without myelopathy or radiculopathy, lumbar region M47.816 ; Postlaminectomy syndrome, not elsewhere classified M96.1 and 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 The risks of [...] to fully comply with the above. The [place] and [place] PDMP were reviewed and were appropriate 07/01/2024 Spondylosis without myelopathy or radiculopathy, lumbar region (ICD-10 - M47.816) 07/01/2024 Postlaminectomy syndrome, not elsewhere classified (ICD-10 - M96.1) 07/01/2024 roasterman (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 of 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 (ICD-10 - Z79.891) 07/01/2024 Other The above-named patient was evaluated in [...] Time Spent with Patient and Medical Decision Makinminutes PLAN OF TREATMENT Medication Medication Name Sig Start Date Stop Date Notes HYDROcodone-Acetaminophen 10-325 MG 1 tablet Orally every 4 to 6 hrs as needed for severe pain (max 5x/day) for 30 days 07/01/2024 MAY FILL 07/02/24 Treatment Notes Assessment Notes Radiculopathy, lumbar region Schedule a _bilateral L4-5_ transforaminal epidural steroid injection. The risks of [...] comply with the above. The [place] and [place] PDMP were reviewed and were appropriate Other [...] Time Spent with Patient and Medical Decision Makinminutes Next Appt Details Follow Up: bilateral L4-5 TF E, Reason: Provider Name:Feng Olivo Lay chrissykaren, 07/31/2024 10:00:00 AM, [address] [place] [address], [id number], Progress Notes * Examination Category Sub-Category Detail [...] axial low back pain. Gonzalo's, Gaenslen's and [place]'s tests are positive bilaterally. There is severe [...]
--- OUTSIDE RECORDS SUMMARY | 2024-07-08 12:40 | XMS_ITS | Clinical Summary ---
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 Gender Identity Not on file Sexual Orientation Not on file Plan of Treatment Upcoming Encounters Date Type Department Care Team ([facility] st Contact Info) Description 09/05/2024 1:30 PM CDT Office Visit [facility] Oncology and Hematology - [place] [address] [place] [address] [facility] [address] [place] [address] Lazaro Jefferson MD [address] [facility] [address] [place] [address] Health Maintenance Due Date Last Done Comments [...] 08/27/2014 BREAST CANCER SCREENING 2018 2017, 09/01 OSTEOPOROSIS SCREENING 05/13/2019 09/01/2011 INFLUENZA VACCINE (#1) 2023 7, 02/09/2016, 02/04/2015, Additional history exists DTAP/TDAP/TD VACCINES (2 - T d or Tdap) 12/05/2023 12/04/2013, 06/09/2005 Insurance [employer] GOLD PLUS O [facility] HU[employer]NA GOLD PLUS [facility] MCR HU[employer]NA GOLD CHOICE MCR
--- OUTSIDE RECORDS SUMMARY | 2024-07-08 12:40 | XMS_ITS | Clinical Summary ---
Author Organization [facility] Address [facility] [place] [address] Care Team Providers Care Saw Superintendent Name Role Phone Dolly Grimes MANAGER PLANT Primary Care Provider [phone] Encounters Date Type Department Care Team Description 05/21/2024 9:00 AM CDT - 05/21/2024 11:59 PM CDT Hospital Encounter [facility] MRI [address] [place] [address] Félix Galindo MD Discharge Disposition: Home or Self Care (Routine Discharge) 05/21/2024 Travel from Last 3 Months Social History Tobacco Use Types Packs/Day Years Used Date Smoking Tobacco: Never Assessed Comments Unknown Sex and Gender Information Value Date Recorded Sex Assigned at Female 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 Gender Identity Not on file Sexual Orientation [...] 11:26 AM Narrative 05/23/2024 2:13 PM CDT [facility] [address] [place] [id number] Examination: MR enterography with and without IV [...] Procedure Note Prudencio Fischer MD - 05/23/[address] [address] Examination: MR enterography with and without IV [...] 3 Months Insurance [employer] MEDICAID Care Teams Saw Superintendent Relationship Specialty Start Date End Date Dolly Grimes FNP [address] [place] [address] [facility] [address] [place] [address] PCP - General Nurse Practitioner Family 05/21/24
--- OUTSIDE RECORDS SUMMARY | 2024-07-08 12:41 | XMS_ITS ---
Author Organization [facility] Address [address] [place] [address] Kristine Birch VIDHYA [address] Care Team Providers Care Police Aide Name Role Phone Anabella CARMEN, Joy Primary Care Provider Unavailable Feng Hendrickson Unavailable [phone] ALLERGIES Allergen (clinical drug ingredient) Drug/Non Drug Allergy documented on EMR Reaction Allergy Type Onset Date Status aripiprazole Aripiprazole nausea and vomiting Drug Allergy Active clindamycin Clindamycin diarrhea Drug Allergy Act lucian fentanyl Fentanyl nausea Drug Allergy Active morphine Morphine rash/itching Drug Allergy Acti ve REASON FOR VISIT Right > Left Low Back Pain, Right > Left Lower Extremity Pain MEDICATIONS Medication SIG (Take, Route, Frequency, Duration) Notes Start Date End Date Status Losartan Potassium-HCTZ 100-25 MG TAKE 1 TABLET BY MOUTH EVERY DAY Oral for 90 Active HYDROcodone-Acetamino phen 10-325 MG 1 tablet Orally every 4 to 6 hrs as needed for severe pain (max 5x/day) for 30 days MAY FILL 07/02/24 06/03/2024 Active Albuterol Sulfate HFA 108 (90 Base) MCG/ACT Inhalation for 16 A ctive Prolia 60 MG/ML Subcutaneous for 180 Active Fluticasone-Salmetero l 250-50 MCG/ACT Inhalation for 30 Active Carvedilol 3.125 MG TAKE 1 TABLET BY ROYA TH EVERY 12 HOURS WITH A MEAL/FOOD Oral for 90 Active tiZANidine HCl 4 MG 1 tablet as needed Oral 3 x day muscle spasm for 30 days 12/13/2019 Active Metoprolol Succinate ER 25 MG TAKE 1 TABLET BY MOUTH EVERY DAY Oral for 90 Active hydrOXYzine HCl 25 MG TAKE 1 TABLET BY M OUT THREE TIMES A DAY NEEDED FOR ANXIETY Oral for 10 Active Amphetamine-Dextroamp hetamine 20 MG TAKE 1 TABLET BY MOUTH EVERY DAY Oral for 30 Active Ferrous Sulfate 325 (65 Fe) MG 325 MG ORALLY TWICE A DAY Oral for 90 Active Voltaren 1 % apply 4 grams to painful joint(s) Transdermal 4x/day as needed for pain for 30 days Active rOPINIRole HCl 0.5 MG 1 tablet 1 to 3 ho urs before bedtime Orally Once a day Active [employer]S D3 50 MCG (2000 UT) TAKE 1 CAPSULE BY MOUTH EVERY DAY Oral for 90 Active Narcan 4 MG/0.1ML 1 actuation in one nostril x1, Nasally 2-3 minutes as needed until the patient is responsive or EMS arrives Active Losartan Potassium 25 MG 1 tablet Oral Once a day Active Fluticasone Propionate 50 MCG/ACT 1 spray in each nostril Nasal Twice a day Active Lidocaine-Prilocaine 2.5-2.5 % as directed External Active amLODIPine Besylate 5 MG 1 tablet Oral Once a day Active ZyPREXA 5 MG 1 tablet Orally Once a day Active traZODone HCl 100 MG 1 tablet at bedtime Oral Once a day Active FLUoxetine HCl 40 MG 1 capsule Oral Once a day Active Vitamin D3 1000 UNIT 1 capsule Orally On 09/25/2017 Active ProAir HFA 108 (90 Base) MCG/ACT 2 puffs as needed Inhalation every 6 hrs 09/25/2017 Active Omeprazole 20 MG 1 capsule 30 minutes before morning meal Oral Once a day Active PROBLEMS Problem Type ICD Code Onset Dates Problem Status W/U Status Risk SNOMED Code Notes Problem Radiculopathy, lumbosacral region (M54.17) Active confirmed VITAL SIGNS Blood pressure systolic 166 mm Hg 07/09/19 25 Blood pressure diastolic 109 mm Hg 025 Heart Rate 82 /min 07/08/2024 Respiratory Rate 16 /min 07/08/2024 Height 60 in 07/08/2024 Weight 133 lbs 07/08/2024 BMI 25.97 kg/m2 07/08/2024 Post procedure VS= BP 155/98 , P 82, R 16 Discharged home per ambulatory, in no acute distress. 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 ASSESSMENTS Encounter Date Diagnosis Assessment Notes Treatment Notes Treatment Clinical Notes 07/08/2024 Radiculopathy, lumbar region (ICD-10 - M54.16) 07/08/2024 Radiculopathy, lumbosacral region (ICD-10 - M54.17) 07/08/2024 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) PLAN OF TREATMENT Next Appt Details Follow Up: F/U 07/31/24, Reas on: Provider Name:Feng bean, 07/31/2024 10:00:00 AM, [address] [place], [address], Procedure Notes * Category Sub-Category Detail Notes Transforaminal Epidural Steroid Injection Locati on Bilateral Levels L4-5 Anesthesia Local without IV sed ation Operative Technique After the risks, mercedez efits, alternative treatment options and potential complications related [...] in the prone position on the fluoroscopy table and standard ASA monitors were applied. The back was prepped and draped in the usual sterile fashion with chlorhexidine 2%/IPA 70%. The c-arm was obliqued and tilted to identify the left L4-5 neural foramen and a 23 gauge 3.5 inch spinal needle was inserted under fluoroscopic guidance towards the junction of the inferior endplate and superior articular process until the superior articular process was contacted. A lateral view was taken and the needle tip was advanced into the posterior aspect of the neuroforamen. The subcutaneous structures were anesthetized with 3 mL of 1% Preservative-Free lidocaine during needle placement. An AP view was taken and after negative aspiration for blood, air or CSF, 2 mLs of Omnipaque 240 contrast dye was injected under live fluoroscopy for an epidurogram showing good spread within the epidural space and along the selected nerve root (except in cases of contrast allergy). No intravascular or intrathecal spread was noted. A solution of 10 mg of Preservative-Free Dexamethasone (10 mg/mL), plus 3 mL of 0.25% Preservative-Free bupivacaine was mixed and after negative aspiration 2 mL of this solution was slowly injected into the epidural space. The c-arm was obliqued and tilted to identify the right L4-5 neural foramen and a 23 gauge 3.5 inch spinal needle was inserted under fluoroscopic guidance towards the junction of the inferior endplate and superior articular process until the superior articular process was contacted. A lateral view was taken and the needle tip was advanced into the posterior aspect of the neuroforamen. The subcutaneous structures were anesthetized with 3 mL of 1% Preservative-Free lidocaine during needle placement. An AP view was taken and after negative aspiration for blood, air or CSF, 2 mLs of Omnipaque 240 contrast dye was injected under live fluoroscopy for an epidurogram showing good spread within the epidural space and along the selected nerve root (except in cases of contrast allergy). No intravascular or intrathecal spread was noted. From the solution of 10 mg of Preservative-Free Dexamethasone (10 mg/mL), plus 3 mL of 0.25% Preservative-Free bupivacaine, 2 mL of this solution was slowly injected into the epidural space. The needles were removed, the skin was cleaned and band-aids were placed over the puncture sites. The patient tolerated the procedure well, was able to ambulate without difficulty and was monitored for 20 minutes. Patient reports an 80% reduction in typical pain immediately postprocedure. The patient remained hemodynamically and neurologically stable. No apparent complications were observed. Postoperative instructions were reviewed with the patient. 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 X-ray time: 17 seconds Progress Notes * Examination Category Sub-Category [...] axial low back pain. Gonzalo's, Gaenslen's and [place]'s tests are positive bilaterally. There is severe [...] neural foramen. Assessment and Follow-up: Follow-up Plan documefelicita gale:: Yes MIPS Quality 2020: MIPS Documented:: Compliant
--- OUTSIDE RECORDS SUMMARY | 2024-07-08 12:42 | XMS_ITS | Patient Health Record ---
Author Organization [facility] Address [address] [place] [address] VIDHYA Johnson [address] Care Team Providers Care Preventive Maintenance Coordinator Name Role Phone Anabella CARMEN, Joy Primary Care Provider Unavailable Feng Hendrickson Unavailable [phone] ALLERGIES Allergen (clinical drug ingredient) Drug/Non Drug Allergy documented on EMR Reaction Allergy Type Onset Date Status aripiprazole Aripiprazole nausea and vomiting Drug Allergy Active clindamycin Clindamycin diarrhea Drug Allergy Act lucian fentanyl Fentanyl nausea Drug Allergy Active morphine Morphine rash/itching Drug Allergy Acti ve RESULTS Component Value Reference Range Notes SCL Results (Not yet reviewed by provider) Interpretation: Performing Lab:[id number] [place], [address] [address] [facility] [address] Angelika Garcia MD Notes/Report: 4-ANPP: Fentanyl Negative. Acetyl fentanyl: Fentanyl Negative. Acetyl norfenta nyl: Fentanyl Negative. Acryl fentanyl: Fentanyl Negative. Carfentanil: Fentany l Negative. Para-fluorofentanyl: Fentanyl Negative. Codeine Quantification negative 50 ng/mL Morphine Quantification negative 50 ng/mL Hydrocodone Quantification positive-71732.023 50 ng/mL Norhydrocodone Quantification positive-> 6400 50 [...] 100 ng/mL Tramadol Quantification negative 100 ng/mL V-zupngynsh-hfesdauo Quantification negative 100 n g/mL O-Bqasjfwbd-Brgoitxn Quantification negative 100 n g/mL Tapentadol Quantification negative 50 ng/mL Meperidine Quantification negative 50 ng/mL Normeperidine Quantification negative 50 ng/mL Alpha-Hydroxyalprazolam Quantification negative 20 ng/mL 7-Kwfzj-Bnegjmqija Quantification negative 20 ng/m L Lorazepam Quantification negative 40 ng/mL Nordiazepam Quantification negative 40 ng/mL Temazepam Quantification negative 50 ng/mL Oxazepam Quantification negative 40 ng/mL Amphetamine Quantification positive-> 45674 100 ng/mL Methylphenidate Quantification negative 50 ng/mL [...] 10 ng/mL Flubromazolam Quantification negative 10 ng/mL TQF188 metabolite Quantification negative 10 ng/mL BPM279 metabolite Quantification negative 10 ng/mL RCS4 metabolite Quantification negative 10 ng/mL XLR11/UR144 metabolite negative 10 ng/mL 5F-ADB-M7 negative 10 ng/mL ND-HRDMAUWB-W4 negative 10 ng/mL EJLY-TBDZZZPX-E8 negative 10 ng/mL Eutylone Quantification negative 10 ng/mL Methylone Quantification negative 3 ng/mL Xylazine Quantification negative 10 ng/mL 4-hydroxy Xylazine Quantification negative 10 ng/m L Mitragynine (Kratom alkaloid ) Quantification negative 1 ng/mL 4-ME-Kanfdympudc (Kratom alk aloid) Quantification negative 1 ng/mL ETHANOL negative 20 mg/dL mg/dL ETHYL GLUCURONIDE SCREEN negative 500 ng/mL Ethyl Glucuronide Quantification negative 500 ng/m L Ethyl Sulfate Quantification negative 500 ng/mL CREATININE normal-139.3 >20 mg/dL mg/dL OXIDANT normal-0 <200 ug/mL ug/mL PH normal-4.9 4.5 - 9.5 SPECIFIC GRAVITY normal-1.024 1.003 - 1.035 [facility] Results (Not yet reviewed by provider) Interpretation: Performing Lab:[id number] [facility], [address] [address] [facility] [address] Angelika Garcia MD Notes/Report: Acetyl fentanyl: Fentanyl [...] 100 ng/mL Tramadol Quantification negative 100 ng/mL P-jezlbbumv-gwxjzloq Quantification negative 100 n g/mL R-Dvoizwfmv-Byjharyv Quantification negative 100 n g/mL Alpha-Hydroxyalprazolam Quantification negative 20 ng/mL 4-Lpgkn-Yezboxxqhe Quantification negative 20 ng/m L Lorazepam Quantification [...] (Kratom alkaloid ) Quantification negative 1 ng/mL 0-GE-Oqksrkjtgvd (Kratom alk aloid) Quantification negative 1 ng/mL Ethyl Glucuronide Quantification positive-814.348 500 ng/mL Ethyl Sulfate Quantification negative 500 ng/mL [facility] Results (Not yet reviewed by provider) Interpretation: Performing Lab:[id number] [facility], [address] [address] [place] [id number] Angelika Garcia MD Notes/Report: Codeine negative 1 ng/mL Morphine negative 1 ng/mL Hydrocodone positive-120.252 1 ng/mL Norhydrocodone Quantification positive-8.450 2 ng/mL Hydromorphone negative 1 ng/mL Oxycodone negative 1 ng/mL Noroxycodone Quantification negative 2 ng/mL Oxymorphone negative 1 ng/mL Fentanyl Quantification negative 0.2 ng/mL Norfentanyl Quantification negative 1 ng/mL Methadone negative 2 ng/mL EDDP (Methadone metabolite) negative 2 ng/mL Tramadol Quantification negative 5 ng/mL C-Pxqzwlizg-Dmlazjcs Quantification negative 5 ng/ mL Alprazolam negative [...] 6-WALTER (Heroin metabolite) Quantification negative 1 ng/mL [facility] Results (Not yet reviewed by provider) Interpretation: Performing Lab:[id number] [facility], [address] [address] [facility] [address] Angelika Garcia MD Notes/Report: Acetyl fentanyl: Fentanyl [...] 100 ng/mL Tramadol Quantification negative 100 ng/mL Q-mkjwfuihg-kdtvtjeh Quantification negative 100 n g/mL T-Jiakkpeps-Fbtqmhfp Quantification negative 100 n g/mL Alpha-Hydroxyalprazolam Quantification negative 20 ng/mL 6-Gboig-Dvhrjhqmxn Quantification negative 20 ng/m L Lorazepam Quantification [...] (Kratom alkaloid ) Quantification negative 1 ng/mL 3-WJ-Emictftuaby (Kratom alk aloid) Quantification negative 1 ng/mL Ethyl Glucuronide Quantification negative 500 ng/m L Ethyl Sulfate Quantification negative 500 ng/mL REASON FOR REFERRAL No Information MEDICATIONS Medication SIG (Take, Route, Frequency, Duration) Notes Start Date End Date Status traZODone HCl 100 MG 1 tablet at bedtime Oral Once a day Active FLUoxetine HCl 40 MG 1 capsule Oral Once a day Active hydrOXYzine HCl 25 MG TAKE 1 TABLET BY M OUTH THREE TIMES A DAY NEEDED FOR ANXIETY Oral for 10 Active Vitamin D3 1000 UNIT 1 capsule Orally On 09/25/2017 Active Amphetamine-Dextroamp hetamine 20 MG TAKE 1 TABLET BY MOUTH EVERY DAY Oral for 30 Active ProAir HFA 108 (90 Base) MCG/ACT 2 puffs as needed Inhalation every 6 hrs 09/25/2017 Active Omeprazole 20 MG 1 capsule 30 minutes before morning meal Oral Once a day Active Losartan Potassium-HCTZ [...] l 250-50 MCG/ACT Inhalation for 30 Active ZyPREXA 5 MG 1 tablet Orally Once a day Active Losartan Potassium 25 MG 1 tablet Oral Once a day Active Fluticasone Propionate 50 MCG/ACT 1 spray in each nostril Nasal Twice a day Active Lidocaine-Prilocaine 2.5-2.5 % as directed External Active amLODIPine Besylate 5 MG 1 tablet Oral Once a day Active Ferrous Sulfate 325 (65 Fe) MG 325 MG ORALLY TWICE A DAY Oral for 90 Active Voltaren 1 % apply 4 grams to painful joint(s) Transdermal 4x/day as needed for pain for 30 days Active rOPINIRole HCl 0.5 MG 1 tablet 1 to 3 ho urs before bedtime Orally Once a day Active [employer] D3 50 MCG (1999 UT) TAKE 1 CAPSULE BY MOUTH EVERY DAY Oral for 90 Active Narcan 4 MG/0.1ML 1 actuation in one nostril x1, Nasally 2-3 minutes as needed until the patient is responsive or EMS arrives Active SOCIAL HISTORY Tobacco Use: Social History [...] (F40.231) Active confirmed Fear of medical treatment (211321927) Problem Brachial plexus disorders (G54.0) Active confirmed Brachial p cassandra disorder (8230668) Problem Chronic pain syndrome (G89.4) Active confirmed Chronic ji n syndrome (332497776) Problem Unilateral primary osteoarthritis, left knee (M17.12) Active confirmed Osteoarth ritis of knee (857184663) Problem Unspecified osteoarthritis, unspecified site (M19.90) Active confirmed Osteoarthritis (690397764) Problem Pain in right shoulder (M25.511) Active confirmed Pain of r ight shoulder region (finding) (1248692122) Problem Pain in left shoulder (M25.512) Active confirmed Shoulder joint pain (938547623) Problem Sacroiliitis, not elsewhere classified (M46.1) Active confirmed Solitary sacroiliitis (451229979) Problem Spondylosis without myelopathy or radiculopathy, lumbar region (M47.816) Active confirmed Lumbosacral spondylosis without myelopathy (09330296) Problem Spondylosis without myelopathy or radiculopathy, lumbosacral region (M47.817) Active confirmed Lumbosacral spondylosis without myelopathy (disorder) (86749662) Problem Intervertebral disc disorders with radiculopathy, lumbar 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) Active confirmed Radiculopathy due to lumbar intervertebral disc disorder (516672155982924 ) L4-5 HNP Problem Other intervertebral disc degeneration, 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 confirmed Degeneration of lumbar intervertebral disc (46794940) Problem Radiculopathy, lumbar region (M54.16) Active confirmed Lumbar radiculopathy (914973132) Problem Radiculopathy, lumbosacral region (M54.17) Active confirmed Lumbosacral radiculopathy (9544058) Problem Postlaminectomy syndrome, not elsewhere classified (M96.1) Active confirmed Post-lami nectomy syndrome (30857905) Problem Osseous stenosis of neural canal 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) Active confirmed Spinal stenosis of lumbar region (57520998) Problem Intervertebral disc stenosis of neural canal of lumbar region (M99.53) Active confirmed Spinal stenosis of lumbar region (26250773) Problem snf (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 of anticoagulants (Z79.01) Active confirmed Long-term current use of anticoagulant (184396464) Problem snf (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 of 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 (Z79.891) Active confirmed High risk drug monitoring status (567877337) Problem Myalgia, other site (M79.18) Active confirmed Muscle pain (16662300) VITAL SIGNS Heart Rate 82 /min 07/08/2024 Post procedure VS= BP 155/98, P 82, R 16 Discharged home per ambulatory, in no acute distress. Respiratory Rate 16 /min 07/08/2024 Post procedure VS= BP 155/98, P 82, R 16 Discharged home per ambulatory, in no acute distress. Oximetry 99 % 09/06/2023 Post procedure vitals BP 166/97 HR 80 R 18 SpO2 99%. Pt discharged to home ambulatory with steady gait, no sign of acute distress. Blood pressure diastolic 109 mm Hg 07/08/2024 Post procedure VS= BP 155/98, P 82, R 16 Discharged home per ambulatory, in no acute distress. Height 60 in 07/08/2024 Post procedure VS= BP 155/98, P 82, R 16 Discharged home per ambulatory, in no acute distress. Blood pressure systolic 166 mm Hg 07/08/2024 Post procedure VS= BP 155/98, P 82, R 16 Discharged home per ambulatory, in no acute distress. Weight 133 lbs 07/08/2024 Post procedure VS= BP 155/98, P 82, R 16 Discharged home per ambulatory, in no acute distress. BMI 25.97 kg/m2 07/08/2024 Post procedure VS= BP 155/98, P 82, R 16 Discharged home per ambulatory, in no acute distress. Encounters Encounter Location Date Provider Diagnosis [facility] [address] [place] [address] [place] [address] 07/11/2023 Feng Stynowick Radiculopathy, lumba r region M54.16 [facility] [address] [place] [address] [place] [address] 09/07/2023 Feng Stynowick [facility] [address] [place] [address] [place] [address] 10/24/2023 Feng Stynowick Radiculopathy, lumba r region M54.16 [facility] [address] [place] [address] [place] [address] 10/26/2023 Feng Stynowick Radiculopathy, lumba r region M54.16 [facility] [address] [facility] [place] [address] 12/19/2023 Feng Stynowick Radiculopathy, lumba r region M54.16 [facility] [address] [place] [address] [place] [address] 01/29/2024 Feng Stynowick Radiculopathy, lumba r region M54.16 [facility] [address] [place] [address] [place] [address] 02/19/2024 Feng Stynowick Radiculopathy, lumba r region M54.16 [facility] [address] [place] [address] [place] [address] 03/18/2024 Feng Stynowick [facility] [address] [place] [address] [place] [address] 03/27/2024 Feng Stynowick [facility] [address] [place] [address] [place] [address] 04/26/2024 Feng Stynowick Radiculopathy, lumba r region M54.16 [facility] [address] [place] [address] [facility] [place] [address] 03/26/2024 Feng Stynowick Spondylosis without myelopathy or radiculopathy, lumbar region M47.816 and Spondylosis without myelopathy or radiculopathy, lumbosacral region M47.817 [facility] [address] [place] [address] [place] [address] 05/10/2024 Feng Stynowick Sacroiliitis, not elsewhere classified M46.1 [facility] [address] [place] [address] [place] [address] 07/08/2024 Feng Stynowick Radiculopathy, lumba r region M54.16 ; Radiculopathy, lumbosacral region M54.17 and Osseous stenosis of neural canal of lumbar region M99.33 [facility] [address] [place] [address] [place] [address] 02/16/2024 Feng Stynowick Radiculopathy, lumba r region M54.16 ; Intervertebral disc disorders with radiculopathy, lumbar region M51.16 and Osseous stenosis of neural canal of lumbar region M99.33 [facility] [address] [place] [address] [place] [address] 01/02/2024 Feng Stynowick Sacroiliitis, not elsewhere classified M46.1 [facility] [address] [place] [address] [place] [address] 11/06/2023 Feng Stynowick Radiculopathy, lumba r region M54.16 ; Intervertebral disc disorders with radiculopathy, lumbar region M51.16 and Osseous stenosis of neural canal of lumbar region M99.33 [facility] [address] [place] [address] [facility] [place] [address] 09/06/2023 Feng Stynowick Spondylosis without myelopathy or radiculopathy, lumbar region M47.816 and Spondylosis without myelopathy or radiculopathy, lumbosacral region M47.817 [facility] [address] [place] [address] [place] [address] 07/18/2023 Feng Stynowick [facility] [address] [place] [address] [place] [address] 07/24/2023 Feng Stynowick Radiculopathy, lumba r region M54.16 ; Other intervertebral disc degeneration, lumbar region M51.36 and Osseous stenosis of neural canal of lumbar region M99.33 [facility] [address] [place] [address] [place] [address] 07/31/2023 Feng Stynowick Radiculopathy, lumba r region M54.16 ; Sacroiliitis, not elsewhere classified M46.1 ; Spondylosis without myelopathy or radiculopathy, lumbar region M47.816 ; Postlaminectomy syndrome, not elsewhere classified M96.1 ; Other intervertebral disc degeneration, lumbar region M51.36 ; Osseous stenosis of neural canal of lumbar region M99.33 ; 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 [facility] [address] [place] [address] [place] [address] 08/28/2023 Feng Stynowick Radiculopathy, lumba r region M54.16 ; Spondylosis without myelopathy or radiculopathy, lumbar region M47.816 ; Sacroiliitis, not elsewhere classified M46.1 ; Postlaminectomy syndrome, not elsewhere classified M96.1 ; Other intervertebral disc degeneration, lumbar region M51.36 ; Osseous stenosis of neural canal of lumbar region M99.33 ; 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 [facility] [address] [place] [address] 09/27/2023 Feng Stynowick Radiculopathy, lumba r region M54.16 ; Spondylosis without myelopathy or radiculopathy, lumbar region M47.816 ; Sacroiliitis, not elsewhere classified M46.1 ; Postlaminectomy syndrome, not elsewhere classified M96.1 ; Other intervertebral disc degeneration, lumbar region M51.36 ; Osseous stenosis of neural canal of lumbar region M99.33 ; 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 [facility] [address] [place] [address] 10/04/2023 Feng Stynowick [facility] [address] [place] [address] 10/30/2023 Feng Stynowick Radiculopathy, lumba r region M54.16 ; Spondylosis without myelopathy or radiculopathy, lumbar region M47.816 ; Sacroiliitis, not elsewhere classified M46.1 ; Postlaminectomy syndrome, not elsewhere classified M96.1 ; Other intervertebral disc degeneration, lumbar region M51.36 ; Osseous stenosis of neural canal of lumbar region M99.33 ; 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 and snf (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 of 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 Z79.891 [facility] [address] [place] [address] 10/24/2023 Feng Stynowick Radiculopathy, lumba r region M54.16 ; Spondylosis without myelopathy or radiculopathy, lumbar region M47.816 ; Sacroiliitis, not elsewhere classified M46.1 ; Postlaminectomy syndrome, not elsewhere classified M96.1 ; Other intervertebral disc degeneration, lumbar region M51.36 ; Osseous stenosis of neural canal of lumbar region M99.33 ; 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 and snf (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 of 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 Z79.891 [facility] [address] [place] [address] 11/29/2023 Feng Stynowick Radiculopathy, lumba r region M54.16 ; Spondylosis without myelopathy or radiculopathy, lumbar region M47.816 ; Sacroiliitis, not elsewhere classified M46.1 ; Postlaminectomy syndrome, not elsewhere classified M96.1 ; Other intervertebral disc degeneration, lumbar region M51.36 ; Osseous stenosis of neural canal of lumbar region M99.33 ; 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 [facility] [address] [place] [address] 12/27/2023 Feng Stynowick Radiculopathy, lumba r region M54.16 ; Sacroiliitis, not elsewhere classified M46.1 ; Spondylosis without myelopathy or radiculopathy, lumbar region M47.816 ; Postlaminectomy syndrome, not elsewhere classified M96.1 ; Other intervertebral disc degeneration, lumbar region M51.36 ; Osseous stenosis of neural canal of lumbar region M99.33 ; 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 [facility] [address] [place] [address] 01/25/2024 Feng Stynowick Radiculopathy, lumba r region M54.16 ; Sacroiliitis, not elsewhere classified M46.1 ; Spondylosis without myelopathy or radiculopathy, lumbar region M47.816 ; Postlaminectomy syndrome, not elsewhere classified M96.1 ; Other intervertebral disc degeneration, lumbar region M51.36 ; Osseous stenosis of neural canal of lumbar region M99.33 ; 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 [facility] [address] [place] [phone] 01/29/2024 Feng Stwinifredchrissyick Radiculopathy, lumba r region M54.16 ; Sacroiliitis, not elsewhere classified M46.1 ; Spondylosis without myelopathy or radiculopathy, lumbar region M47.816 ; Postlaminectomy syndrome, not elsewhere classified M96.1 ; Other intervertebral disc degeneration, lumbar region M51.36 ; Osseous stenosis of neural canal of lumbar region M99.33 ; 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 and snf (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 of 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 Z79.891 [facility] [address] [place] [phone] 02/06/2024 Feng Stynowick Radiculopathy, lumba r region M54.16 ; Sacroiliitis, not elsewhere classified M46.1 ; Spondylosis without myelopathy or radiculopathy, lumbar region M47.816 ; Postlaminectomy syndrome, not elsewhere classified M96.1 ; Other intervertebral disc degeneration, lumbar region M51.36 ; Osseous stenosis of neural canal of lumbar region M99.33 ; 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 [facility] [address] [place] [phone] 06/03/2024 Feng Stwinifredchrissyick Sacroiliitis, not elsewhere classified M46.1 ; Radiculopathy, lumbar region M54.16 ; Spondylosis without myelopathy or radiculopathy, lumbar region M47.816 ; Postlaminectomy syndrome, not elsewhere classified M96.1 ; Other intervertebral disc degeneration, lumbar region M51.36 ; Osseous stenosis of neural canal of lumbar region M99.33 ; 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 and snf (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 of 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 Z79.891 [facility] [address] [place] [phone] 07/01/2024 Feng Stynowick Sacroiliitis, not elsewhere classified M46.1 ; Radiculopathy, lumbar region M54.16 ; Spondylosis without myelopathy or radiculopathy, lumbar region M47.816 ; Postlaminectomy syndrome, not elsewhere classified M96.1 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 [facility] [address] [place] [phone] 03/06/2024 Feng Stynowick Radiculopathy, lumba r region M54.16 ; Spondylosis without myelopathy or radiculopathy, lumbar region M47.816 ; Sacroiliitis, not elsewhere classified M46.1 ; Postlaminectomy syndrome, not elsewhere classified M96.1 ; Other intervertebral disc degeneration, lumbar region M51.36 ; Osseous stenosis of neural canal of lumbar region M99.33 ; 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 [facility] [address] [place] [phone] 05/03/2024 Feng Stynowick Spondylosis without myelopathy or radiculopathy, lumbar region M47.816 ; Sacroiliitis, not elsewhere classified M46.1 ; Radiculopathy, lumbar region M54.16 ; Postlaminectomy syndrome, not elsewhere classified M96.1 ; Other intervertebral disc degeneration, lumbar region M51.36 ; Osseous stenosis of neural canal of lumbar region M99.33 ; 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 [facility] [address] [place] [phone] 04/05/2024 Feng Stynowick Radiculopathy, lumba r region M54.16 ; Spondylosis without myelopathy or radiculopathy, lumbar region M47.816 ; Sacroiliitis, not elsewhere classified M46.1 ; Postlaminectomy syndrome, not elsewhere classified M96.1 ; Other intervertebral disc degeneration, lumbar region M51.36 ; Osseous stenosis of neural canal of lumbar region M99.33 ; 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 The [place] PDMP were reviewed and were appropriate 07/31/2023 [...] to fully comply with the above. The [place] PDMP were reviewed and were appropriate 09/27/2023 [...] to fully comply with the above. The [place] PDMP were reviewed and were appropriate 10/24/2023 [...] to fully comply with the above. The [place] PDMP were reviewed and were appropriate 10/30/2023 [...] fluid retention, adrenal suppression, osteoporosis resulting in fracture [id number]|2024-07-08 12:45:00|2024-07-08 12:45:00|XMS_ITS|BKG DAEMON|External Medical Summaries|[id number]|" Encounter Summary Created on: July 08, 2024 Esteban Davila : 02/21/1991 Sex: Female Author Organization [facility] Address [address] [place] [address] Care Team Providers Care Preventive Maintenance Coordinator Name Role Phone Chana Sommers MD Primary Care Pro vider Encounter Details Date Type Department Care Team (Latest Contact Info) Description 08/11/2008 Outpatient Historical [facility], [address] Yin Roblero MD [address] [place], [place] [id number] Cellulitis and Abscess of Unspecified Site Social History Tobacco Use Types Packs/Day Years Used Date Smoking Tobacco: Never Assessed Comments No Sex and Gender Information Value Date Recorded Sex Assigned at Not on file Legal Sex Female 2:58 AM [employer] Gender Identity Not on file Sexual Orientation Not on file documented as of this encounter Plan of Treatment Not on file documented as of this encounter Visit Diagnoses Diagnosis Cellulitis and abscess of unspecified site documented in this encounter Care Teams Preventive Maintenance Coordinator Relationship Specialty Start Date End Date Chana Sommers MD PCP - General Family Practice 12/18/19 documented as of this encounter "
[2024-07-08 20:12] LABS: Creatinine Urine 116.6 mg/dL
[2024-07-08 20:15] LABS: Hematocrit 28.6 % (37.0-47.0); Hemoglobin 8.7 g/dL (12.0-15.0); Mean Corpuscular HGB Conc 30.4 g/dl (32-36); Mean Corpuscular Hemoglobin 25.7 pg (26-34); Mean Corpuscular Volume 84.6 fl (80-100); Mean Platelet Volume 9.1 fl (7.4-10.4); Platelet Count Result 181 k/mm3 (150-375); Red Blood Count 3.38 M/mm3 (4.2-5.4); Red Cell Distribution Width 15.1 % (11.5-14.5); White Blood Count 3.5 K/mm3 (4.5-10.0)
[2024-07-08 21:06] LABS: Erythrocyte Sedimentation Rate 94 mm/hr (0-20)
[2024-07-08 21:22] LABS: Total Protein Urine Random > 200 mg/dL; Ur Ttl Prot Creatinine Ratio > 1.72 mg/mg (0-0.20)
[2024-07-08 21:46] LABS: Anion Gap 10 mmol/L (4-12); Blood Urea Nitrogen 46 mg/dL (7-17); Calcium 10.1 mg/dL (8.4-10.2); Carbon Dioxide 24 mmol/L (22-30); Chloride 102 mmol/L (98-107); Creatine Kinase < 20 U/L (30-135); Estimated Glomerular Filt Rate 31; Glucose 96 mg/dL (65-110); Phosphorus 4.7 mg/dL (2.5-4.5); Potassium 4.9 mmol/L (3.4-5.0); Sodium 136 mmol/L (137-145)
[2024-07-08 21:59] LABS: Complement C3 124 mg/dL (88-165)
[2024-07-08 23:58] LABS: Parathyroid Intact < 14.5 pg/mL (14.5-75.2)
[2024-07-09 14:23] LABS: Complement Total CH50 54 U/mL (31-60)
[2024-07-10 11:44] LABS: Kappa\\Lambda Light Chains 0.56 (0.26-1.65); Lambda Light Chain 30.6 mg/L (5.7-26.3)
== END 2024-07-08 12:36 | disposition home or self-care (01) ==
PROVIDERS: PCP Nurse Practitioner Family; Visit Provider Internal Medicine Nephrology
DX: E78.5 Hyperlipidemia, unspecified (principal); I12.9 Hypertensive chronic kidney disease with stage 1 through stage 4 chronic kidney disease, or unspecified chronic kidney disease; N18.32 Chronic kidney disease, stage 3b
CPT/HCPCS: 36415; 80069; 82088; 82550; 82570; 83883; 83970; 84156; 84244; 84443; 85027; 85652; 86038; 86039; 86160; 86162; 86334

== ENCOUNTER 2024-07-09 15:08 | Outpatient (CLI) | payer MEDICARE, SELFPAY ==
--- OUTSIDE RECORDS SUMMARY | 2024-07-09 15:12 | XMS_ITS | Clinical Summary ---
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 Gender Identity Not on file Sexual Orientation Not on file Plan of Treatment Upcoming Encounters Date Type Department Care Team ([facility] st Contact Info) Description 09/05/2024 1:30 PM CDT Office Visit [facility] Oncology and Hematology - [place] [address] [place] [address] [facility] [address] [place] [address] Lazaro Jefferson MD [address] [facility] [address] [place] [address] Health Maintenance Due Date Last [...] 12/04/2013, 06/09/2005 Insurance [employer] G[employer]US O [facility] [employer] [place] [place] [facility] [place] [employer] [place]OLD CHOICE [place]
--- OUTSIDE RECORDS SUMMARY | 2024-07-09 15:12 | XMS_ITS ---
Author Organization [facility] Address [address] [place] [address] [place] [address] Care Team Providers Care Shoe Cutter Name Role Phone Anabella CARMEN, Joy Primary Care Provider Unavailable Feng Hendrickson Unavailable [phone] ALLERGIES Allergen (clinical drug ingredient) Drug/Non Drug [...] Date Provider Diagnosis [facility] [address] [facility] [place] [address] [place] [address] 07/01/2024 Feng Hendrickson Sacroiliitis, not elsewhere classified M46.1 ; Radiculopathy, lumbar region M54.16 ; Spondylosis without myelopathy or radiculopathy, lumbar region M47.816 ; Postlaminectomy syndrome, not elsewhere classified M96.1 and terminal clerk (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 of 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 Z79.891 ASSESSMENTS [...] with the above. The [place] and [place] PDMP were reviewed and were appropriate 07/01/2024 Spondylosis without myelopathy or radiculopathy, lumbar region (ICD-10 - M47.816) 07/01/2024 Postlaminectomy syndrome, not elsewhere classified (ICD-10 - M96.1) 07/01/2024 terminal clerk (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 of 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 (ICD-10 - [...] comply with the above. The [place] and [place] PDMP were reviewed and were appropriate Other [...] Name:Feng Olivo Lay chrissykaren, 07/31/2024 10:00:00 AM, [address] [place] [address], [id number], Progress Notes * Examination Category Sub-Category Detail [...] axial low back pain. Gonzalo's, Gaenslen's and [place]'s tests are positive bilaterally. There is severe [...]
--- OUTSIDE RECORDS SUMMARY | 2024-07-09 15:12 | XMS_ITS ---
Author Organization [facility] Address [address] [place] [address] [place] [address] Care Team Providers Care Farm Agent Name Role Phone Anabella CARMEN, Joy Primary Care Provider Unavailable Feng Hendrickson Unavailable [phone] MEDICATIONS Medication SIG (Take, Route, Fr equency, Duration) Notes Start Date End Date Status tiZANidine HCl 4 MG 1 tablet as needed O ral 3 x day muscle spasm for 30 days 12/13/2019 Active Encounters Encounter Location Date Provider Diagnosis [facility] [address] [place], [place] [address] [address] 07/08/2024 Feng Hendrickson Radiculopathy, lumbar region M54.16 ASSESSMENTS Encounter Date Diagnosis Assessment Notes Treatment Notes Treatment Clinical Notes 07/08/2024 Radiculopathy, lumbar region (ICD-10 - M54.16) PLAN OF TREATMENT Medication Medication Name Sig Start Date Stop Date Notes tiZANidine HCl 4 MG 1 tablet as needed O ral 3 x day muscle spasm for 30 days 12/13/2019 Next Appt Details Provider Name:Feng bean, 07/31/2024 10:00:00 AM, [address] [place], [address],
--- OUTSIDE RECORDS SUMMARY | 2024-07-09 15:12 | XMS_ITS ---
Author Organization [facility] Address [address] [place] [address] Kristine Birch [place] [address] Care Team Providers Care Size Changer Name Role Phone Anabella CARMEN, Joy Primary Care Provider Unavailable Feng Hendrickson Unavailable [phone] ALLERGIES Allergen (clinical drug ingredient) Drug/Non Drug [...] lumbosacral region (M54.17) Active confirmed Lumbosacral radiculopathy ([id number]) VITAL SIGNS Blood pressure systolic 166 mm [...] Location Date Provider Diagnosis [facility] [address] [facility] [place] [address] [place] [address] 07/08/2024 Feng [place]ick Radiculopathy, lumbar region M54.16 ; Radiculopathy, lumbosacral [...] Up: F/U 07/31/24, Reas on: Provider Name:Feng Geovani bean, 07/31/2024 10:00:00 AM, [address] [place], [address], Procedure Notes * Category Sub-Category Detail Notes [...] 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 X-ray time: 17 seconds Progress Notes [...] axial low back pain. Gonzalo's, Gaenslen's and [place]'s tests are positive bilaterally. There is severe [...]
--- OUTSIDE RECORDS SUMMARY | 2024-07-09 15:12 | XMS_ITS | Clinical Summary ---
Author Organization [facility] Address [address] [facility] [address] [place] [address] Care Team Providers Care Winder Fixer Name Role Phone Unavailable Primary Care Provider [...] on file Legal Sex Female 3:45 AM INTERNATIONAL EXCHANGE COORDINATOR Gender Identity Not on file Sexual Orientation Not on file Last Filed Vital Signs Vital Sign Reading Time Taken Comments Blood Pressure 120/64 01/04/2017 12:58 PM INTERNATIONAL EXCHANGE COORDINATOR Pulse 65 01/04/2017 12:58 PM INTERNATIONAL EXCHANGE COORDINATOR Temperature 36.5 C (97.7 F) 01/04/2017 12:58 PM INTERNATIONAL EXCHANGE COORDINATOR Respiratory Rate 18 01/04/2017 12:58 PM INTERNATIONAL EXCHANGE COORDINATOR Oxygen Saturation 97% 01/04/2017 12:58 PM INTERNATIONAL EXCHANGE COORDINATOR Inhaled Oxygen Concentration - - Weight 62.6 kg (138 lb) 01/04/2017 12:58 PM INTERNATIONAL EXCHANGE COORDINATOR Height 152.4 cm (5') 01/04/2017 12:58 PM INTERNATIONAL EXCHANGE COORDINATOR Body Mass Index 26.95 01/04/2017 12:58 PM INTERNATIONAL EXCHANGE COORDINATOR Plan of Treatment Health Maintenance Due Date [...] contacted. Electronically signed by: Nathan clark/suzie:05/15/2017 14:18:37 Director Of Early Childhood Education: Cher CARPENTER(Tigre)(M), [facility] letter sent: Additional Imaging Reading location: [facility] BI-RADS: 0 Additional Imaging [...] contacted. Electronically signed by: Nathan clark/suzie:05/15/2017 14:18:37 Director Of Early Childhood Education: Cher CARPENTER(Tigre)(M), [facility] letter sent: Additional Imaging Reading location: [facility] BI-RADS: 0 Additional Imaging Evaluation Needed [facility] Mario Britt MD IMG MAMMO ORDERABLES Kena l Result from Last 3 Months or Most Recently Relevant to Health Maintenance Insurance MEDICARE C HUMANA
--- OUTSIDE RECORDS SUMMARY | 2024-07-09 15:13 | XMS_ITS | Patient Health Record ---
Author Organization [facility] Address [address] [place] [address] VIDHYA Johnson [address] Care Team Providers Care Residential Life Director Name Role Phone Anabella CARMEN, Joy Primary Care Provider Unavailable Feng Hendrickson Unavailable [phone] ALLERGIES Allergen (clinical drug ingredient) Drug/Non Drug Allergy documented on EMR Reaction Allergy Type Onset Date Status aripiprazole Aripiprazole nausea and vomiting Drug Allergy Active clindamycin Clindamycin diarrhea Drug Allergy Act lucian fentanyl Fentanyl nausea Drug Allergy Active morphine Morphine rash/itching Drug Allergy Acti ve RESULTS Component Value Reference Range Notes Springr Results (Not yet reviewed by provider) Interpretation: Performing Lab:[id number] [place], [address] [facility] [id number] Angelika Garcia MD Notes/Report: Codeine negative 1 ng/mL Morphine negative 1 ng/mL Hydrocodone positive-120.252 1 ng/mL Norhydrocodone Quantification positive-8.450 2 ng/mL Hydromorphone negative 1 ng/mL Oxycodone negative 1 ng/mL Noroxycodone Quantification negative 2 ng/mL Oxymorphone negative 1 ng/mL Fentanyl Quantification negative 0.2 ng/mL Norfentanyl Quantification negative 1 ng/mL Methadone negative 2 ng/mL EDDP (Methadone metabolite) negative 2 ng/mL Tramadol Quantification negative 5 ng/mL Q-Bcxyppxag-Kcoczgrl Quantification negative 5 ng/ mL Alprazolam negative [...] 6-WALTER (Heroin metabolite) Quantification negative 1 ng/mL [facility] Results (Not yet reviewed by provider) Interpretation: Performing Lab[facility][id number] [facility], [address] [facility] [facility] [id number] Angelika Garcia MD Notes/Report: Acetyl fentanyl: Fentanyl [...] 100 ng/mL Tramadol Quantification negative 100 ng/mL B-pqcwccayt-ogjmtvmp Quantification negative 100 n g/mL P-Crnwbhsys-Frofllek Quantification negative 100 n g/mL Alpha-Hydroxyalprazolam Quantification negative 20 ng/mL 6-Mbqvg-Ictpydvdum Quantification negative 20 ng/m L Lorazepam Quantification [...] (Kratom alkaloid ) Quantification negative 1 ng/mL 6-OG-Uxrljrujwkt (Kratom alk aloid) Quantification negative 1 ng/mL Ethyl Glucuronide Quantification positive-814.348 500 ng/mL Ethyl Sulfate Quantification negative 500 ng/mL [facility] Results (Not yet reviewed by provider) Interpretation: Performing Lab:[id number] [facility], [address] [facility] [id number] Angelika Garcia MD Notes/Report: 4-ANPP: Fentanyl Negative. Acetyl fentanyl: Fentanyl Negative. Acetyl norfenta nyl: Fentanyl Negative. Acryl fentanyl: Fentanyl Negative. Carfentanil: Fentany l Negative. Para-fluorofentanyl: Fentanyl Negative. Codeine Quantification negative 50 ng/mL Morphine Quantification negative 50 ng/mL Hydrocodone Quantification positive-73271.023 50 ng/mL Norhydrocodone Quantification positive-> 6400 50 [...] 100 ng/mL Tramadol Quantification negative 100 ng/mL H-mblpllrdf-frllyadf Quantification negative 100 n g/mL R-Tfugarjnc-Jxtjeyws Quantification negative 100 n g/mL Tapentadol Quantification negative 50 ng/mL Meperidine Quantification negative 50 ng/mL Normeperidine Quantification negative 50 ng/mL Alpha-Hydroxyalprazolam Quantification negative 20 ng/mL 0-Ylrgb-Uqedxemwmt Quantification negative 20 ng/m L Lorazepam Quantification negative 40 ng/mL Nordiazepam Quantification negative 40 ng/mL Temazepam Quantification negative 50 ng/mL Oxazepam Quantification negative 40 ng/mL Amphetamine Quantification positive-> 34862 100 ng/mL Methylphenidate Quantification negative 50 ng/mL [...] 10 ng/mL Flubromazolam Quantification negative 10 ng/mL ZWR435 metabolite Quantification negative 10 ng/mL PDF753 metabolite Quantification negative 10 ng/mL RCS4 metabolite Quantification negative 10 ng/mL XLR11/UR144 metabolite negative 10 ng/mL 5F-ADB-M7 negative 10 ng/mL HP-DKFINQBS-A0 negative 10 ng/mL QQYD-BWVJAKKQ-C6 negative 10 ng/mL Eutylone Quantification negative 10 ng/mL Methylone Quantification negative 3 ng/mL Xylazine Quantification negative 10 ng/mL 4-hydroxy Xylazine Quantification negative 10 ng/m L Mitragynine (Kratom alkaloid ) Quantification negative 1 ng/mL 4-LT-Urkipdrddqo (Kratom alk aloid) Quantification negative 1 ng/mL ETHANOL negative 20 mg/dL mg/dL ETHYL GLUCURONIDE SCREEN negative 500 ng/mL Ethyl Glucuronide Quantification negative 500 ng/m L Ethyl Sulfate Quantification negative 500 ng/mL CREATININE normal-139.3 >20 mg/dL mg/dL OXIDANT normal-0 <200 ug/mL ug/mL PH normal-4.9 4.5 - 9.5 SPECIFIC GRAVITY normal-1.024 1.003 - 1.035 [facility] Results (Not yet reviewed by provider) Interpretation: Performing Lab:[id number] [place], [address] [facility] [address] Angelika Garcia MD Notes/Report: Acetyl fentanyl: Fentanyl [...] 100 ng/mL Tramadol Quantification negative 100 ng/mL U-oilolecam-zqbdepab Quantification negative 100 n g/mL P-Wtunkilvt-Uzwxmzgb Quantification negative 100 n g/mL Alpha-Hydroxyalprazolam Quantification negative 20 ng/mL 9-Tywvn-Fqthcuinjw Quantification negative 20 ng/m L Lorazepam Quantification negative 40 ng/mL Nordiazepam Quantification negative 40 ng/mL Temazepam Quantification negative 50 ng/mL Oxazepam Quantification negative 40 ng/mL Amphetamine Quantification positive-5764.671 100 ng/mL Methamphetamine Quantification negative 100 ng/mL [...] (Kratom alkaloid ) Quantification negative 1 ng/mL 8-SE-Cdaapajhzsr (Kratom alk aloid) Quantification negative 1 ng/mL [...] capsule Orally On a day 09/25/2017 Active Amphetamine-Dextroamp hetamine 20 MG TAKE [...] WITH A MEAL/FOOD Oral for 90 Active Metoprolol Succinate ER [...] muscle spasm for 30 days 12/13/2019 Active Narcan 4 MG/0.1ML 1 actuation in [...] (F40.231) Active confirmed Fear of medical treatment (832324043) Problem Brachial plexus disorders (G54.0) Active confirmed Brachial p casasndra disorder (3624551) Problem Chronic pain syndrome (G89.4) Active confirmed Chronic ji n syndrome (948256039) Problem Unilateral primary osteoarthritis, left knee (M17.12) Active confirmed Osteoarth ritis of knee (853655582) Problem Unspecified osteoarthritis, unspecified site (M19.90) Active confirmed Osteoarthritis (949769067) Problem Pain in right shoulder (M25.511) Active confirmed Pain of r ight shoulder region (finding) (6463723283) Problem Pain in left shoulder (M25.512) Active confirmed Shoulder joint pain (881633962) Problem Sacroiliitis, not elsewhere classified (M46.1) Active confirmed Solitary sacroiliitis (703338017) Problem Spondylosis without myelopathy or radiculopathy, 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16) Active confirmed Lumbar radiculopathy (800439206) Problem Radiculopathy, lumbosacral region (M54.17) Active confirmed Lumbosacral radiculopathy (3087923) Problem Postlaminectomy syndrome, not elsewhere classified (M96.1) Active confirmed Post-lami nectomy syndrome (16030749) Problem Osseous stenosis of neural canal 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) Active confirmed Spinal stenosis of lumbar region (32101431) Problem Intervertebral disc stenosis of neural canal of lumbar region (M99.53) Active confirmed Spinal stenosis of lumbar region (08680977) Problem emt intermediate (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 of anticoagulants (Z79.01) Active confirmed Long-term current use of anticoagulant (447255495) Problem emt intermediate (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 of 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 (Z79.891) Active confirmed High risk drug monitoring status (558810547) Problem Myalgia, other site (M79.18) Active confirmed Muscle pain (18693104) VITAL SIGNS Heart Rate 82 /min 07/08/2024 [...] Date Provider Diagnosis [facility] [address] [place] [address] [place] [address] 07/11/2023 Feng Stynowick Radiculopathy, lumba r region M54.16 [facility] [address] [place] [address] [place] [address] 09/07/2023 Feng Stynowick [facility] [address] [place] [address] [place] [address] 10/24/2023 Feng Stynowick Radiculopathy, lumba r region M54.16 [facility] [address] [place] [address] [place] [address] 10/26/2023 Feng Stynowick Radiculopathy, lumba r region M54.16 [facility] [address] [place] [address] [place] [address] 12/19/2023 Feng Stynowick Radiculopathy, lumba r region M54.16 [facility] [address] [place] [address] [place] [address] 01/29/2024 Feng Stynowick Radiculopathy, lumba r region M54.16 [facility] [address] [place] [address] [place] [address] 02/19/2024 Feng Stynowick Radiculopathy, lumba r region M54.16 [facility] [address] [place] [address] [place] [address] 03/18/2024 Feng Stynowick [facility] [address] [place] [address] [place] [address] 03/27/2024 Feng Stynowick [facility] [address] [place] [address], [place] [address] 04/26/2024 Feng Stynowick Radiculopathy, lumba r region M54.16 [facility] [address] [place], [place] [address], [place] [address] 07/08/2024 Feng Stynowick Radiculopathy, lumba r region M54.16 [facility] [address] [place] [address] [place] [address] 05/10/2024 Feng Stynowick Sacroiliitis, not elsewhere classified M46.1 [facility] [address] [place] [address] [place] [address] 02/16/2024 Feng Stynowick Radiculopathy, lumba r region M54.16 ; Intervertebral disc disorders with radiculopathy, lumbar region M51.16 and Osseous stenosis of neural canal of lumbar region M99.33 [facility] [address] [place] [address] [place] [address] 07/08/2024 Feng Stynowick Radiculopathy, lumba r region M54.16 ; Radiculopathy, lumbosacral region M54.17 and Osseous stenosis of neural canal of lumbar region M99.33 [facility] [address] [place] [address], [place] [address] 03/26/2024 Feng Stynowick Spondylosis without myelopathy or radiculopathy, lumbar region M47.816 and Spondylosis without myelopathy or radiculopathy, lumbosacral region M47.817 [facility] [address] [place] [address] [place] [address] 01/02/2024 Feng Stynowick Sacroiliitis, not elsewhere classified M46.1 [facility] [address] [place] [address], [place] [address] 11/06/2023 Feng Stynowick Radiculopathy, lumba r region M54.16 ; Intervertebral disc disorders with radiculopathy, lumbar region M51.16 and Osseous stenosis of neural canal of lumbar region M99.33 [facility] [address] [place] [address], [place] [address] 09/06/2023 Feng Stynowick Spondylosis without myelopathy or radiculopathy, lumbar region M47.816 and Spondylosis without myelopathy or radiculopathy, lumbosacral region M47.817 [facility] [address] [place] [address], [place] [address] 07/18/2023 Feng Stynowick [facility] [address] [place] [address], [place] [address] 07/24/2023 Feng Stynowick Radiculopathy, lumba r region M54.16 ; Other intervertebral disc degeneration, lumbar region M51.36 and Osseous stenosis of neural canal of lumbar region M99.33 [facility] [address] [place] [address], [place] [address] 07/31/2023 Feng Stynowick Radiculopathy, lumba r region M54.16 ; Sacroiliitis, not elsewhere classified M46.1 ; Spondylosis without myelopathy or radiculopathy, lumbar region M47.816 ; Postlaminectomy syndrome, not elsewhere classified M96.1 ; Other intervertebral disc degeneration, lumbar region M51.36 ; Osseous stenosis of neural canal of lumbar region M99.33 ; 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 and emt intermediate (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 of 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 Z79.891 [facility] [address] [place] [address] 08/28/2023 Feng Stynowick Radiculopathy, lumba r region M54.16 ; Spondylosis without myelopathy or radiculopathy, lumbar region M47.816 ; Sacroiliitis, not elsewhere classified M46.1 ; Postlaminectomy syndrome, not elsewhere classified M96.1 ; Other intervertebral disc degeneration, lumbar region M51.36 ; Osseous stenosis of neural canal of lumbar region M99.33 ; 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 and senior care (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 of 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 Z79.891 [facility] [address] [place] [address] 09/27/2023 Feng Stynowick Radiculopathy, lumba r region M54.16 ; Spondylosis without myelopathy or radiculopathy, lumbar region M47.816 ; Sacroiliitis, not elsewhere classified M46.1 ; Postlaminectomy syndrome, not elsewhere classified M96.1 ; Other intervertebral disc degeneration, lumbar region M51.36 ; Osseous stenosis of neural canal of lumbar region M99.33 ; 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 and emt intermediate (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 of 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 Z79.891 [facility] [address] [place] [address] 10/04/2023 Feng Stynowick [facility] [address] [place] [address] 10/30/2023 Feng Stynowick Radiculopathy, lumba r region M54.16 ; Spondylosis without myelopathy or radiculopathy, lumbar region M47.816 ; Sacroiliitis, not elsewhere classified M46.1 ; Postlaminectomy syndrome, not elsewhere classified M96.1 ; Other intervertebral disc degeneration, lumbar region M51.36 ; Osseous stenosis of neural canal of lumbar region M99.33 ; 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 and emt intermediate (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 of 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 Z79.891 [facility] [address] [place] [address] 10/24/2023 Feng Stynowick Radiculopathy, lumba r region M54.16 ; Spondylosis without myelopathy or radiculopathy, lumbar region M47.816 ; Sacroiliitis, not elsewhere classified M46.1 ; Postlaminectomy syndrome, not elsewhere classified M96.1 ; Other intervertebral disc degeneration, lumbar region M51.36 ; Osseous stenosis of neural canal of lumbar region M99.33 ; 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 and senior care (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 of 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 Z79.891 [facility] [address] [place] [address] 11/29/2023 Feng Stynowick Radiculopathy, lumba r region M54.16 ; Spondylosis without myelopathy or radiculopathy, lumbar region M47.816 ; Sacroiliitis, not elsewhere classified M46.1 ; Postlaminectomy syndrome, not elsewhere classified M96.1 ; Other intervertebral disc degeneration, lumbar region M51.36 ; Osseous stenosis of neural canal of lumbar region M99.33 ; 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 and emt intermediate (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 of 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 Z79.891 [facility] [address] [place] [address] 12/27/2023 Feng Stynowick Radiculopathy, lumba r region M54.16 ; Sacroiliitis, not elsewhere classified M46.1 ; Spondylosis without myelopathy or radiculopathy, lumbar region M47.816 ; Postlaminectomy syndrome, not elsewhere classified M96.1 ; Other intervertebral disc degeneration, lumbar region M51.36 ; Osseous stenosis of neural canal of lumbar region M99.33 ; 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 and emt intermediate (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 of 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 Z79.891 [facility] [address] [place] [address] 01/25/2024 Feng Stynowick Radiculopathy, lumba r region M54.16 ; Sacroiliitis, not elsewhere classified M46.1 ; Spondylosis without myelopathy or radiculopathy, lumbar region M47.816 ; Postlaminectomy syndrome, not elsewhere classified M96.1 ; Other intervertebral disc degeneration, lumbar region M51.36 ; Osseous stenosis of neural canal of lumbar region M99.33 ; 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 and emt intermediate (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 of 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 Z79.891 [facility] [address] [place] [address] 01/29/2024 Feng Stynowick Radiculopathy, lumba r region M54.16 ; Sacroiliitis, not elsewhere classified M46.1 ; Spondylosis without myelopathy or radiculopathy, lumbar region M47.816 ; Postlaminectomy syndrome, not elsewhere classified M96.1 ; Other intervertebral disc degeneration, lumbar region M51.36 ; Osseous stenosis of neural canal of lumbar region M99.33 ; 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 and senior care (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 of 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 Z79.891 [facility] [address] [place] [address] 02/06/2024 Feng Stynowick Radiculopathy, lumba r region M54.16 ; Sacroiliitis, not elsewhere classified M46.1 ; Spondylosis without myelopathy or radiculopathy, lumbar region M47.816 ; Postlaminectomy syndrome, not elsewhere classified M96.1 ; Other intervertebral disc degeneration, lumbar region M51.36 ; Osseous stenosis of neural canal of lumbar region M99.33 ; 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 and senior care (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 of 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 Z79.891 [facility] [address] [place] [address] 03/06/2024 Feng Stynowick Radiculopathy, lumba r region M54.16 ; Spondylosis without myelopathy or radiculopathy, lumbar region M47.816 ; Sacroiliitis, not elsewhere classified M46.1 ; Postlaminectomy syndrome, not elsewhere classified M96.1 ; Other intervertebral disc degeneration, lumbar region M51.36 ; Osseous stenosis of neural canal of lumbar region M99.33 ; 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 and senior care (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 of 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 Z79.891 [facility] [address] [place] [address] 05/03/2024 Feng Stynowick Spondylosis without myelopathy or radiculopathy, lumbar region M47.816 ; Sacroiliitis, not elsewhere classified M46.1 ; Radiculopathy, lumbar region M54.16 ; Postlaminectomy syndrome, not elsewhere classified M96.1 ; Other intervertebral disc degeneration, lumbar region M51.36 ; Osseous stenosis of neural canal of lumbar region M99.33 ; 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 and emt intermediate (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 of 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 Z79.891 [facility] [address] [place] [address] 04/05/2024 Feng Stjeffick Radiculopathy, lumba r region M54.16 ; Spondylosis without myelopathy or radiculopathy, lumbar region M47.816 ; Sacroiliitis, not elsewhere classified M46.1 ; Postlaminectomy syndrome, not elsewhere classified M96.1 ; Other intervertebral disc degeneration, lumbar region M51.36 ; Osseous stenosis of neural canal of lumbar region M99.33 ; 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 and senior care (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 of 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 Z79.891 [facility] [address] [place] [address] 06/03/2024 Feng Stynowick Sacroiliitis, not elsewhere classified M46.1 ; Radiculopathy, lumbar region M54.16 ; Spondylosis without myelopathy or radiculopathy, lumbar region M47.816 ; Postlaminectomy syndrome, not elsewhere classified M96.1 ; Other intervertebral disc degeneration, lumbar region M51.36 ; Osseous stenosis of neural canal of lumbar region M99.33 ; 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 and senior care (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 of 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 Z79.891 [facility] [address] [place] [address] 07/01/2024 Feng Stynowick Sacroiliitis, not elsewhere classified M46.1 ; Radiculopathy, lumbar region M54.16 ; Spondylosis without myelopathy or radiculopathy, lumbar region M47.816 ; Postlaminectomy syndrome, not elsewhere classified M96.1 and senior care (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 of 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 Z79.891 ASSESSMENTS Encounter Date Diagnosis Assessment Notes Treatment Notes Treatment Clinical Notes 07/11/2023 Radiculopathy, lumbar region (ICD-10 - M54.16) 07/24/2023 Other intervertebral disc degeneration, lumbar region (ICD-10 - M51.36) 07/24/2023 Radiculopathy, lumbar region (ICD-10 - M54.16) 07/31/2023 Sacroiliitis, not elsewhere classified (ICD-10 - [...] fully comply with the above. The [place] PD[place] were reviewed and were appropriate 08/28/2023 [...] fully comply with the above. The [place] PD[place] were reviewed and were [...] to fully comply with the above. The [facility] PDMP were reviewed and were appropriate [...] fully comply with the above. The [place] PD[place] were reviewed and were appropriate 10/26/2023 [...] to fully comply with the above. The [facility] PDMP were reviewed and were appropriate 10/30/2023 [...] to fully comply with the above. The [facility] PDMP were reviewed and were appropriate [...] to fully comply with the above. The [facility] PDMP were reviewed and were appropriate 01/02/2024 [...] to fully comply with the above. The [facility] PDMP were reviewed and were appropriate [...] to fully comply with the above. The [facility] PDMP were reviewed and were appropriate [...] to fully comply with the above. The [facility] PDMP were reviewed and were appropriate 02/16/2024 [...] to fully comply with the above. The [facility] PDMP were reviewed and were appropriate [...] radiculopathy, 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) 04/05/2024 Spondylosis without myelopathy or radiculopathy, lumbar region (ICD-10 - M47.816) 04/05/2024 Radiculopathy, lumbar region (ICD-10 - M54.16) [...] fully comply with the above. The [place] were reviewed and were appropriate 04/26/2024 Radiculopathy, lumbar region (ICD-10 - M54.16) 05/03/2024 Sacroiliitis, not elsewhere classified (ICD-10 - [...] agreeable to proceeding at this time. 05/03/2024 Spondylosis without myelopathy or radiculopathy, lumbar [...] fully comply with the above. The [place] were reviewed and were appropriate 07/01/2024 Sacroiliitis, not elsewhere classified (ICD-10 - M46.1) 07/08/2024 Radiculopathy, lumbar region (ICD-10 - M54.16) 07/08/2024 Radiculopathy, lumbosacral region (ICD-10 - M54.17) 07/08/2024 Radiculopathy, lumbar region (ICD-10 - M54.16) 07/08/2024 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) 07/01/2024 Spondylosis without myelopathy or radiculopathy, lumbar region (ICD-10 - M47.816) 07/01/2024 Radiculopathy, lumbar region (ICD-10 - M54.16) [...] fully comply with the above. The [place] were reviewed and were appropriate 06/03/2024 [...] fully comply with the above. The [place] PD[place] were reviewed and were appropriate 03/06/2024 Sacroiliitis, not elsewhere classified (ICD-10 - M46.1) 04/05/2024 Sacroiliitis, not elsewhere classified (ICD-10 - [...] of lumbar region (ICD-10 - M99.33) 07/31/2023 Postlaminectomy syndrome, not elsewhere classified (ICD-10 [...] not elsewhere classified (ICD-10 - M96.1) 07/01/2024 Postlaminectomy syndrome, not elsewhere classified (ICD-10 - M96.1) 06/03/2024 Postlaminectomy syndrome, not elsewhere classified (ICD-10 - M96.1) 07/01/2024 senior care (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 of 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 (ICD-10 - Z79.891) 06/03/2024 Other intervertebral disc degeneration, lumbar region [...] degeneration, lumbar region (ICD-10 - M51.36) 07/31/2023 Osseous stenosis of neural canal of [...] injections and transfusions (ICD-10 - F40.231) 07/31/2023 senior care (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 of 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 (ICD-10 - Z79.891) 08/28/2023 senior care (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 of 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 (ICD-10 - 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 09/27/2023 emt intermediate (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 of 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 (ICD-10 - Z79.891) 10/24/2023 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) 10/30/2023 emt intermediate (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 of 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 (ICD-10 - Z79.891) 12/27/2023 senior care (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 of 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 (ICD-10 - Z79.891) 11/29/2023 emt intermediate (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 of 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 (ICD-10 - 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 01/25/2024 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) 01/29/2024 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) 02/06/2024 senior care (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 of 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 (ICD-10 - Z79.891) 03/06/2024 senior care (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 of 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 (ICD-10 - 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 04/05/2024 emt intermediate (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 of 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 (ICD-10 - Z79.891) 05/03/2024 senior care (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 of 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 (ICD-10 - Z79.891) 06/03/2024 emt intermediate (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 of 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 (ICD-10 - 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 01/29/2024 senior care (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 of 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 (ICD-10 - Z79.891) 01/25/2024 senior care (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 of 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 (ICD-10 - Z79.891) 10/24/2023 senior care (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 of 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 (ICD-10 - Z79.891) 07/31/2023 Other The above-named patient was evaluated [...] with Patient and Medical Decision Makin minutes 07/01/2024 Other The above-named patient was evaluated [...] and Medical Decision Makinminutes PLAN OF TREATMENT Pending Test Test Name Order Date MRI : Lumbar Spine with and without Cont rast (10941) 02/01/2022 MRI : Lumbar Spine with and without Cont rast ([id number]) 04/25/2022 XRAY right shoulder 09/09/2020 [facility] 01/03/2022 [facility] 03/29/2022 [facility] 09/16/2022 [facility] 06/01/2023 [facility] 08/28/2023 [facility] 11/29/2023 [facility] 03/06/2024 [facility] 05/31/2024 Next Appt Details Provider Name:Feng bean, 07/31/2024 10:00:00 AM, [address] [place], [address], Insurance Providers Payer Name Payer Address Payer Phone Subscriber Number Group Number Insured Name Patient Relationship to Insured Coverage Start Date Coverage End Date [employer] Claims [address] [address] [place] [address] [id number] MIKE PADGETT Self - patient is the insured 8 MEDICAL (GENERAL) HISTORY Medical History History ICD Code Hypertension Stomach Ulcers Depression Insomnia GERD Anemia Asthma Migraine Surgical History Surgery Date(Month/Year) Pain Pump Removal 2011 Multiple Lumbar Surgeries
[2024-07-12 12:28] LABS: Renin 11.79 ng/mL/h (0.25-5.82)
== END 2024-07-09 15:09 | disposition home or self-care (01) ==
PROVIDERS: PCP Nurse Practitioner Family; Visit Provider Internal Medicine Nephrology
DX: I12.9 Hypertensive chronic kidney disease with stage 1 through stage 4 chronic kidney disease, or unspecified chronic kidney disease (principal); N18.32 Chronic kidney disease, stage 3b; E78.5 Hyperlipidemia, unspecified
CPT/HCPCS: 36415; 84244

== ENCOUNTER 2024-07-11 12:44 | Outpatient (NON) | payer MEDICARE, SELFPAY ==
--- OUTSIDE RECORDS SUMMARY | 2024-07-11 12:49 | XMS_ITS ---
Author Organization [facility] Address [address] [place] [address] [place] [address] Care Team Providers Care Scrap Yard Worker Name Role Phone Anabella CARMEN, Joy Primary Care Provider Unavailable Feng Hendrickson Unavailable [phone] ALLERGIES Allergen (clinical drug ingredient) Drug/Non Drug [...] Date Provider Diagnosis [facility] [address] 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 The [place] PDMP were reviewed and were appropriate Other [...] Name:Feng Olivo Lay chrissykaren, 07/31/2024 10:00:00 AM, [address] [place] [address], [id number], Progress Notes * Examination Category Sub-Category Detail [...] axial low back pain. Gonzalo's, Gaenslen's and Gibbs's tests are positive bilaterally. There is severe [...]
--- OUTSIDE RECORDS SUMMARY | 2024-07-11 12:49 | XMS_ITS ---
Author Organization [facility] Address [address] [place] [address] Kristine Birch [place] [address] Care Team Providers Care Syrup Blender Name Role Phone Anabella CARMEN, Joy Primary Care Provider Unavailable Feng Hendrickson Unavailable [phone] ALLERGIES Allergen (clinical drug ingredient) Drug/Non Drug [...] lumbosacral region (M54.17) Active confirmed Lumbosacral radiculopathy (6427776) VITAL SIGNS Blood pressure systolic 166 mm [...] Location Date Provider Diagnosis [facility] [address] [facility] [address] [place] [address] 07/08/2024 Feng Stynowick Radiculopathy, lumbar region M54.16 [...] Provider Name:Feng Geovani bean, 07/31/2024 10:00:00 AM, [address] [place], [address], Procedure Notes * Category Sub-Category Detail Notes [...] discharged home in good condition with a stage driver. X-ray time: 17 seconds Progress Notes [...] axial low back pain. Gonzalo's, Gaenslen's and Jenkins's tests are positive bilaterally. There is severe [...]
--- OUTSIDE RECORDS SUMMARY | 2024-07-11 12:49 | XMS_ITS | Clinical Summary ---
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 Gender Identity Not on file Sexual Orientation Not on file Plan of Treatment Upcoming Encounters Date Type Department Care Team ([facility] st Contact Info) Description 09/05/2024 1:30 PM CDT Office Visit [facility] On[facility] H[facility]ology - [place] [address] [place] [address] [facility] [address] [place] [address] Lazaro Jefferson MD [address] [facility] [address] [place] [address] Health Maintenance Due Date Last [...] 12/04/2013, 06/09/2005 Insurance [employer] GOLD PLUS O [facility] HU[employer]NA GOLD PLUS [facility] [employer] GOLD CHOICE MCR
--- OUTSIDE RECORDS SUMMARY | 2024-07-11 12:49 | XMS_ITS ---
Author Organization [facility] Address [address] [place] [address] [place] [address] Care Team Providers Care Cook Mess Name Role Phone Anabella CARMEN, Joy Primary Care Provider Unavailable Feng Hendrickson Unavailable [phone] MEDICATIONS Medication SIG (Take, Route, Fr equency, Duration) Notes Start Date End Date Status tiZANidine HCl 4 MG 1 tablet as needed O ral 3 x day muscle spasm for 30 days 12/13/2019 Active Encounters Encounter Location Date Provider Diagnosis [facility] [address] [place] [address] [address] 07/08/2024 Feng Hendrickson Radiculopathy, lumbar region M54.16 [...] Provider Name:Feng bean, 07/31/2024 10:00:00 AM, [address] [place], [address],
--- OUTSIDE RECORDS SUMMARY | 2024-07-11 12:49 | XMS_ITS | Clinical Summary ---
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 Gender Identity Not on file Sexual Orientation Not on file Last Filed Vital Signs Vital Sign Reading Time Taken Comments Blood Pressure 120/64 01/04/2017 12:58 PM DIGITAL RETOUCHER Pulse 65 01/04/2017 12:58 PM DIGITAL RETOUCHER Temperature 36.5 C (97.7 F) 01/04/2017 12:58 PM DIGITAL RETOUCHER Respiratory Rate 18 01/04/2017 12:58 PM DIGITAL RETOUCHER Oxygen Saturation 97% 01/04/2017 12:58 PM DIGITAL RETOUCHER Inhaled Oxygen Concentration - - Weight 62.6 kg (138 lb) 01/04/2017 12:58 PM DIGITAL RETOUCHER Height 152.4 cm (5') 01/04/2017 12:58 PM DIGITAL RETOUCHER Body Mass Index 26.95 01/04/2017 12:58 PM DIGITAL RETOUCHER Plan of Treatment Health Maintenance Due Date [...] CDT Narrative 05/15/2017 5:22 PM CDT - [facility] SCREENING BILATERAL DIGITAL W CAD W RYAN [...] contacted. Electronically signed by: Nathan clark/suzie:05/15/2017 14:18:37 Social Worker Clinical: Cher CARPENTER(Tigre)(M), [facility] letter sent: Additional Imaging Reading location: [facility] BI-RADS: 0 Additional Imaging Evaluation Needed Procedure [...] contacted. Electronically signed by: Nathan clark/suzie:05/15/2017 14:18:37 Social Worker Clinical: Cher CARPENTER(Tigre)(M), [facility] letter sent: Additional Imaging Reading location: [facility] BI-RADS: 0 Additional Imaging Evaluation Needed [facility] Mario Britt MD IMG MAMMO ORDERABLES Kena l Result from Last 3 Months or Most Recently Relevant to Health Maintenance Insurance MEDICARE C HUMANA
--- OUTSIDE RECORDS SUMMARY | 2024-07-11 12:50 | XMS_ITS | Patient Health Record ---
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 Name Role Phone Anabella CARMEN, Joy Primary Care Provider Unavailable Feng Hendrickson Unavailable [phone] ALLERGIES Allergen (clinical drug ingredient) Drug/Non Drug Allergy documented on EMR Reaction Allergy Type Onset Date Status aripiprazole Aripiprazole nausea and vomiting Drug Allergy Active clindamycin Clindamycin diarrhea Drug Allergy Act lucian fentanyl Fentanyl nausea Drug Allergy Active morphine Morphine rash/itching Drug Allergy Acti ve RESULTS Component Value Reference Range Notes [employer] Results (Not yet reviewed by provider) Interpretation: Performing Lab:[id number] [place], [address] [address] [facility] [address] Angelika Garcia MD Notes/Report: Codeine negative 1 ng/mL Morphine negative 1 ng/mL Hydrocodone positive-120.252 1 ng/mL Norhydrocodone Quantification positive-8.450 2 ng/mL Hydromorphone negative 1 ng/mL Oxycodone negative 1 ng/mL Noroxycodone Quantification negative 2 ng/mL Oxymorphone negative 1 ng/mL Fentanyl Quantification negative 0.2 ng/mL Norfentanyl Quantification negative 1 ng/mL Methadone negative 2 ng/mL EDDP (Methadone metabolite) negative 2 ng/mL Tramadol Quantification negative 5 ng/mL T-Htuprgezc-Ydmxvffg Quantification negative 5 ng/ mL Alprazolam negative [...] 6-WALTER (Heroin metabolite) Quantification negative 1 ng/mL [facility] Results (Not yet reviewed by provider) Interpretation: Performing Lab:[id number] [facility], [address] [address] [facility] [address] Angelika Garcia MD Notes/Report: Acetyl fentanyl: Fentanyl [...] 100 ng/mL Tramadol Quantification negative 100 ng/mL F-jmvfrkwwi-ksfcnire Quantification negative 100 n g/mL T-Jjnzrsucb-Htznevvk Quantification negative 100 n g/mL Alpha-Hydroxyalprazolam Quantification negative 20 ng/mL 5-Ezflg-Zvyihixfqm Quantification negative 20 ng/m L Lorazepam Quantification [...] (Kratom alkaloid ) Quantification negative 1 ng/mL 3-XX-Hnmkzbrgeqa (Kratom alk aloid) Quantification negative 1 ng/mL Ethyl Glucuronide Quantification positive-814.348 500 ng/mL Ethyl Sulfate Quantification negative 500 ng/mL [facility] Results (Not yet reviewed by provider) Interpretation: Performing Lab:[id number] [facility], [address] [address] [facility] [address] Angelika Garcia MD Notes/Report: 4-ANPP: Fentanyl Negative. Acetyl fentanyl: Fentanyl Negative. Acetyl norfenta nyl: Fentanyl Negative. Acryl fentanyl: Fentanyl Negative. Carfentanil: Fentany l Negative. Para-fluorofentanyl: Fentanyl Negative. Codeine Quantification negative 50 ng/mL Morphine Quantification negative 50 ng/mL Hydrocodone Quantification positive-40999.023 50 ng/mL Norhydrocodone Quantification positive-> 6400 50 [...] 100 ng/mL Tramadol Quantification negative 100 ng/mL I-lxvahrjes-wcuvddhs Quantification negative 100 n g/mL S-Ipcbdnebh-Zzezydmq Quantification negative 100 n g/mL Tapentadol Quantification negative 50 ng/mL Meperidine Quantification negative 50 ng/mL Normeperidine Quantification negative 50 ng/mL Alpha-Hydroxyalprazolam Quantification negative 20 ng/mL 7-Unsna-Rexstywxoe Quantification negative 20 ng/m L Lorazepam Quantification negative 40 ng/mL Nordiazepam Quantification negative 40 ng/mL Temazepam Quantification negative 50 ng/mL Oxazepam Quantification negative 40 ng/mL Amphetamine Quantification positive-> 33511 100 ng/mL Methylphenidate Quantification negative 50 ng/mL [...] 10 ng/mL Flubromazolam Quantification negative 10 ng/mL NDW051 metabolite Quantification negative 10 ng/mL FVZ144 metabolite Quantification negative 10 ng/mL RCS4 metabolite Quantification negative 10 ng/mL XLR11/UR144 metabolite negative 10 ng/mL 5F-ADB-M7 negative 10 ng/mL XL-HONYCEBQ-N3 negative 10 ng/mL RWGU-OORKRJMU-T6 negative 10 ng/mL Eutylone Quantification negative 10 ng/mL Methylone Quantification negative 3 ng/mL Xylazine Quantification negative 10 ng/mL 4-hydroxy Xylazine Quantification negative 10 ng/m L Mitragynine (Kratom alkaloid ) Quantification negative 1 ng/mL 5-DV-Fxyrenfaxqa (Kratom alk aloid) Quantification negative 1 ng/mL ETHANOL negative 20 mg/dL mg/dL ETHYL GLUCURONIDE SCREEN negative 500 ng/mL Ethyl Glucuronide Quantification negative 500 ng/m L Ethyl Sulfate Quantification negative 500 ng/mL CREATININE normal-139.3 >20 mg/dL mg/dL OXIDANT normal-0 <200 ug/mL ug/mL PH normal-4.9 4.5 - 9.5 SPECIFIC GRAVITY normal-1.024 1.003 - 1.035 [facility] Results (Not yet reviewed by provider) Interpretation: Performing Lab:[id number] [place], [address] [address] [facility] [address] Angelika Garcia MD Notes/Report: Acetyl fentanyl: Fentanyl [...] 100 ng/mL Tramadol Quantification negative 100 ng/mL Q-jrdptpmgt-kzpqowgw Quantification negative 100 n g/mL R-Falefmmhl-Fkloxtfq Quantification negative 100 n g/mL Alpha-Hydroxyalprazolam Quantification negative 20 ng/mL 1-Jnxef-Ovxweopjyb Quantification negative 20 ng/m L Lorazepam Quantification negative 40 ng/mL Nordiazepam Quantification negative 40 ng/mL Temazepam Quantification negative 50 ng/mL Oxazepam Quantification negative 40 ng/mL Amphetamine Quantification positive-0364.671 100 ng/mL Methamphetamine Quantification negative 100 ng/mL [...] (Kratom alkaloid ) Quantification negative 1 ng/mL 2-KI-Kenkhuxiexh (Kratom alk aloid) Quantification negative 1 ng/mL [...] (F40.231) Active confirmed Fear of medical treatment (941022996) Problem Brachial plexus disorders (G54.0) Active confirmed Brachial p cassandra disorder (8118470) Problem Chronic pain syndrome (G89.4) Active confirmed Chronic ji n syndrome (363790245) Problem Unilateral primary osteoarthritis, left knee (M17.12) Active confirmed Osteoarth ritis of knee (757461992) Problem Unspecified osteoarthritis, unspecified site (M19.90) Active confirmed Osteoarthritis (149929779) Problem Pain in right shoulder (M25.511) Active confirmed Pain of r ight shoulder region (finding) (6307758034) Problem Pain in left shoulder (M25.512) Active confirmed Shoulder joint pain (666169687) Problem Sacroiliitis, not elsewhere classified (M46.1) Active confirmed Solitary sacroiliitis (188225490) Problem Spondylosis without myelopathy or radiculopathy, 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16) Active confirmed Lumbar radiculopathy (126904717) Problem Radiculopathy, lumbosacral region (M54.17) Active confirmed Lumbosacral radiculopathy (4360996) Problem Postlaminectomy syndrome, not elsewhere classified (M96.1) Active confirmed Post-lami nectomy syndrome (88421094) Problem Osseous stenosis of neural canal 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) Active confirmed Spinal stenosis of lumbar region (44012936) Problem Intervertebral disc stenosis of neural canal of lumbar region (M99.53) Active confirmed Spinal stenosis of lumbar region (24985810) Problem 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 Encounters Encounter Location Date Provider Diagnosis [facility] [address] [place] [address] 09/07/2023 Feng Stynowick [facility] [address] [place] [phone] 10/24/2023 Feng Stynowick Radiculopathy, lumba r region M54.16 [facility] [address] [place] [phone] 10/26/2023 Feng Stynowick Radiculopathy, lumba r region M54.16 [facility] [address] [place] [phone] 12/19/2023 Feng Stynowick Radiculopathy, lumba r region M54.16 [facility] [address] [place] [address] [place] [address] 01/29/2024 Feng Stynowick Radiculopathy, lumba r region M54.16 [facility] [address] [place] [address] [place] [address] 02/19/2024 Feng Stynowick Radiculopathy, lumba r region M54.16 [facility] [address] [place] [address] [place] [address] 03/18/2024 Feng Stynowick [facility] [address] [place] [address] [place] [address] 03/27/2024 Feng Stynowick [facility] [address] [place] [address] [place] [address] 04/26/2024 Feng Stynowick Radiculopathy, lumba r region M54.16 [facility] [address] [place] [address] [place] [address] 07/08/2024 Feng Stynowick Radiculopathy, lumba r region M54.16 [facility] [address] [place] [address] [place] [address] 05/10/2024 Feng Stynowick Sacroiliitis, not elsewhere classified M46.1 [facility] [address] [place] [address] [place] [address] 02/16/2024 Feng Stynowick Radiculopathy, lumba r region M54.16 ; Intervertebral disc disorders with radiculopathy, lumbar region M51.16 and Osseous stenosis of neural canal of lumbar region M99.33 [facility] [address] [place] [address] [place] [address] 07/08/2024 Feng Stynowick Radiculopathy, lumba r region M54.16 ; Radiculopathy, lumbosacral region M54.17 and Osseous stenosis of neural canal of lumbar region M99.33 [facility] [address] [place], [place] [address] [address] 03/26/2024 Feng Stynowick Spondylosis without myelopathy or radiculopathy, lumbar region M47.816 and Spondylosis without myelopathy or radiculopathy, lumbosacral region M47.817 [facility] [address] [place] [address] [place] [address] 01/02/2024 Feng Stynowick Sacroiliitis, not elsewhere classified M46.1 [facility] [address] [place] [address] [place] [address] 11/06/2023 Feng Stynowick Radiculopathy, lumba r region M54.16 ; Intervertebral disc disorders with radiculopathy, lumbar region M51.16 and Osseous stenosis of neural canal of lumbar region M99.33 [facility] [address] [place] [address] [place] [address] 09/06/2023 Feng Stynowick Spondylosis without myelopathy or radiculopathy, lumbar region M47.816 and Spondylosis without myelopathy or radiculopathy, lumbosacral region M47.817 [facility] [address] [place] [address] [place] [address] 07/18/2023 Feng Stynowick [facility] [address] [place] [address] [place] [address] 07/24/2023 Feng Stynowick Radiculopathy, lumba r region M54.16 ; Other intervertebral disc degeneration, lumbar region M51.36 and Osseous stenosis of neural canal of lumbar region M99.33 [facility] [address] [place] [address] [place] [address] 07/31/2023 Feng Stynowick Radiculopathy, lumba r region M54.16 ; Sacroiliitis, not elsewhere classified M46.1 ; Spondylosis without myelopathy or radiculopathy, lumbar region M47.816 ; Postlaminectomy syndrome, not elsewhere classified M96.1 ; Other intervertebral disc degeneration, lumbar region M51.36 ; Osseous stenosis of neural canal of lumbar region M99.33 ; 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 and parts counterman (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 of 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 Z79.891 [facility] [address] [place] [address] [place] [address] 08/28/2023 Feng Stynowick Radiculopathy, lumba r region [...] of 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 Z79.891 [facility] [address] [place] [address] 09/27/2023 Feng Stynowick Radiculopathy, lumba r region M54.16 ; Spondylosis without myelopathy or radiculopathy, lumbar region M47.816 ; Sacroiliitis, not elsewhere classified M46.1 ; Postlaminectomy syndrome, not elsewhere classified M96.1 ; Other intervertebral disc degeneration, lumbar region M51.36 ; Osseous stenosis of neural canal of lumbar region M99.33 ; 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 and parts counterman (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 of 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 Z79.891 [facility] [address] [place] [address] 10/04/2023 Feng Stynowick [facility] [address] [place] [address] 10/30/2023 Feng Stynowick Radiculopathy, lumba r region M54.16 ; Spondylosis without myelopathy or radiculopathy, lumbar region M47.816 ; Sacroiliitis, not elsewhere classified M46.1 ; Postlaminectomy syndrome, not elsewhere classified M96.1 ; Other intervertebral disc degeneration, lumbar region M51.36 ; Osseous stenosis of neural canal of lumbar region M99.33 ; 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 and parts counterman (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 of 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 Z79.891 [facility] [address] [place] [address] 10/24/2023 Feng Stynowick Radiculopathy, lumba r region [...] of 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 Z79.891 [facility] [address] [place] [address] 11/29/2023 Feng Stynowick Radiculopathy, lumba r region [...] of 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 Z79.891 [facility] [address] [place] [address] 12/27/2023 Feng Stynowick Radiculopathy, lumba r region M54.16 ; Sacroiliitis, not elsewhere classified M46.1 ; Spondylosis without myelopathy or radiculopathy, lumbar region M47.816 ; Postlaminectomy syndrome, not elsewhere classified M96.1 ; Other intervertebral disc degeneration, lumbar region M51.36 ; Osseous stenosis of neural canal of lumbar region M99.33 ; 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 and parts counterman (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 of 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 Z79.891 [facility] [address] [place] [address] 01/25/2024 Feng Stynowick Radiculopathy, lumba r region M54.16 ; Sacroiliitis, not elsewhere classified M46.1 ; Spondylosis without myelopathy or radiculopathy, lumbar region M47.816 ; Postlaminectomy syndrome, not elsewhere classified M96.1 ; Other intervertebral disc degeneration, lumbar region M51.36 ; Osseous stenosis of neural canal of lumbar region M99.33 ; 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 and parts counterman (current) use of 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 Z79.891 [facility] [address] [place] [address] 01/29/2024 Feng Stynowick Radiculopathy, lumba r region M54.16 ; Sacroiliitis, not elsewhere classified M46.1 ; Spondylosis without myelopathy or radiculopathy, lumbar region M47.816 ; Postlaminectomy syndrome, not elsewhere classified M96.1 ; Other intervertebral disc degeneration, lumbar region M51.36 ; Osseous stenosis of neural canal of lumbar region M99.33 ; 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 and parts counterman (current) use of 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 Z79.891 [facility] [address] [place] [address] 02/06/2024 Feng Stynowick Radiculopathy, lumba r region M54.16 ; Sacroiliitis, not elsewhere classified M46.1 ; Spondylosis without myelopathy or radiculopathy, lumbar region M47.816 ; Postlaminectomy syndrome, not elsewhere classified M96.1 ; Other intervertebral disc degeneration, lumbar region M51.36 ; Osseous stenosis of neural canal of lumbar region M99.33 ; 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 and parts counterman (current) use of 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 Z79.891 [facility] [address] [place] [address] 03/06/2024 Feng Stynowick Radiculopathy, lumba r region M54.16 ; Spondylosis without myelopathy or radiculopathy, lumbar region M47.816 ; Sacroiliitis, not elsewhere classified M46.1 ; Postlaminectomy syndrome, not elsewhere classified M96.1 ; Other intervertebral disc degeneration, lumbar region M51.36 ; Osseous stenosis of neural canal of lumbar region M99.33 ; 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 and parts counterman (current) use of 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 Z79.891 [facility] [address] [place] [address] 05/03/2024 Feng Stynowick Spondylosis without myelopathy or radiculopathy, lumbar region M47.816 ; Sacroiliitis, not elsewhere classified M46.1 ; Radiculopathy, lumbar region M54.16 ; Postlaminectomy syndrome, not elsewhere classified M96.1 ; Other intervertebral disc degeneration, lumbar region M51.36 ; Osseous stenosis of neural canal of lumbar region M99.33 ; 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 and parts counterman (current) use of 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 Z79.891 [facility] [address] [place] [address] 04/05/2024 Feng Jinick Radiculopathy, lumba r region M54.16 ; Spondylosis without myelopathy or radiculopathy, lumbar region M47.816 ; Sacroiliitis, not elsewhere classified M46.1 ; Postlaminectomy syndrome, not elsewhere classified M96.1 ; Other intervertebral disc degeneration, lumbar region M51.36 ; Osseous stenosis of neural canal of lumbar region M99.33 ; 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 and parts counterman (current) use of 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 Z79.891 [facility] [address] [place] [address] 06/03/2024 Feng Stynowick Sacroiliitis, not elsewhere classified [...] of opiate analgesic Z79.891 [facility] [address] [place] [phone] 07/01/2024 Feng Stynowick Sacroiliitis, not elsewhere classified M46.1 ; Radiculopathy, lumbar region M54.16 ; Spondylosis without myelopathy or radiculopathy, lumbar region M47.816 ; Postlaminectomy syndrome, not elsewhere classified M96.1 and longterm (current) use of opiate analgesic Z79.891 ASSESSMENTS Encounter Date Diagnosis Assessment Notes Treatment Notes Treatment Clinical Notes 07/24/2023 Radiculopathy, lumbar region (ICD-10 - M54.16) [...] to fully comply with the above. The [place] PD[place] were reviewed and were appropriate 07/31/2023 [...] to fully comply with the above. The [place] PD[place] were reviewed and were appropriate 09/27/2023 [...] to fully comply with the above. The [place] PD[place] were reviewed and were appropriate 10/24/2023 [...] to fully comply with the above. The [place] PD[place] were reviewed and were appropriate 10/30/2023 [...] to fully comply with the above. The [facility] PDMP were reviewed and were appropriate 11/29/2023 [...] to fully comply with the above. The [facility] PDMP were reviewed and were appropriate [...] to fully comply with the above. The [facility] PDMP were reviewed and were appropriate [...] to fully comply with the above. The [place] PD[place] were reviewed and were appropriate 01/29/2024 [...] to fully comply with the above. The [place] PD[place] were reviewed and were appropriate 01/29/2024 [...] to fully comply with the above. The [facility] PDMP were reviewed and were appropriate 02/06/2024 [...] to fully comply with the above. The [place] PD[place] were reviewed and were appropriate 03/06/2024 [...] to fully comply with the above. The [place] PD[place] were reviewed and were appropriate 04/05/2024 [...] to fully comply with the above. The [place] were reviewed and were appropriate 07/01/2024 Sacroiliitis, not elsewhere classified (ICD-10 - M46.1) 07/08/2024 Radiculopathy, lumbar region (ICD-10 - M54.16) 07/08/2024 Radiculopathy, lumbosacral region (ICD-10 - M54.17) 07/08/2024 Radiculopathy, lumbar region (ICD-10 - M54.16) 07/08/2024 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) 07/01/2024 Radiculopathy, lumbar region (ICD-10 - M54.16) [...] to fully comply with the above. The [facility] PDMP were reviewed and were appropriate 07/01/2024 Spondylosis without myelopathy or radiculopathy, lumbar region (ICD-10 - M47.816) 06/03/2024 Spondylosis without myelopathy or radiculopathy, lumbar [...] to fully comply with the above. The [facility] PDMP were reviewed and were appropriate 04/05/2024 [...] disc degeneration, lumbar region (ICD-10 - M51.36) 07/01/2024 parts counterman (current) use of opiate analgesic (ICD-10 - Z79.891) 05/03/2024 Other intervertebral disc degeneration, lumbar region [...] injections and transfusions (ICD-10 - F40.231) 07/31/2023 parts counterman (current) use of opiate analgesic (ICD-10 - Z79.891) 09/27/2023 longterm (current) use of opiate analgesic (ICD-10 - Z79.891) 10/24/2023 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) 10/30/2023 longterm (current) use of opiate analgesic (ICD-10 - Z79.891) 08/28/2023 longterm (current) use of opiate analgesic (ICD-10 - 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 11/29/2023 parts counterman (current) use of opiate analgesic (ICD-10 - 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 12/27/2023 longterm (current) use of opiate analgesic (ICD-10 - Z79.891) 01/25/2024 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) 01/29/2024 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) 02/06/2024 longterm (current) use of opiate analgesic (ICD-10 - Z79.891) 03/06/2024 longterm (current) use of opiate analgesic (ICD-10 - 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 04/05/2024 longterm (current) use of opiate analgesic (ICD-10 - Z79.891) 05/03/2024 longterm (current) use of opiate analgesic (ICD-10 - Z79.891) 06/03/2024 longterm (current) use of opiate analgesic (ICD-10 - 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 01/29/2024 parts counterman (current) use of opiate analgesic (ICD-10 - Z79.891) 01/25/2024 longterm (current) use of opiate analgesic (ICD-10 - Z79.891) 10/24/2023 parts counterman (current) use of opiate analgesic (ICD-10 - [...] Lumbar Spine with and without Cont rast (83383) 02/01/2022 MRI : Lumbar Spine with and without Cont rast (22957) 04/25/2022 XRAY right shoulder 09/09/2020 [facility] 01/03/2022 [facility] 03/29/2022 [facility] 09/16/2022 [facility] 06/01/2023 [facility] 08/28/2023 [facility] 11/29/2023 [facility] 03/06/2024 [facility] 05/31/2024 Next Appt Details Provider Name:Feng Geovani bean, 07/31/2024 10:00:00 AM, [address] [place], [address], Insurance Providers Payer Name Payer Address Payer Phone Subscriber Number Group Number Insured Name Patient Relationship to Insured Coverage Start Date Coverage End Date [employer] Claims [address] [address] [place] [address] [id number] LORIN MIKE Self - patient is the insured 8 MEDICAL (GENERAL) HISTORY Medical History History ICD Code Hypertension Stomach Ulcers Depression Insomnia GERD Anemia Asthma Migraine Surgical History Surgery Date(Month/Year) Pain Pump Removal 2011 Multiple Lumbar Surgeries
[2024-07-11 19:12] LABS: Sodium Urine Random 64 meq/L
[2024-07-12 10:36] LABS: Sodium 24 Hour Urine 64 mmol/day (40-220); Total Volume 24 Hour Urine 1000 ml
[2024-07-12 10:37] LABS: Total Volume 24 Hour Urine 1000 ml; Urea Nitrogen 24 Hour Urine 6.9 G/DAY (12-20)
[2024-07-12 12:58] LABS: Creat 24 Hr 0.56 g/24 h (0.50-2.15); Pro/Creat Ratio 1464 mg/g creat (<150); Pro/Creat Ratio mg/mg 1.464 (<0.150); Protein,total, 24 Hr Ur 820 mg/24 h (<150)
[2024-07-18 14:04] LABS: Metanephrine, Total Urine 322 mcg/24 h (224-832); Metanephrine, Urine 104 mcg/24 h (90-315); Normetanephrine, Urine 218 mcg/24 h (122-676)
== END 2024-07-11 12:45 | disposition home or self-care (01) ==
LOC: ANHGOSHLAB 12:46
PROVIDERS: PCP Nurse Practitioner Family; Visit Provider Internal Medicine Nephrology
DX: E78.5 Hyperlipidemia, unspecified (principal); I12.9 Hypertensive chronic kidney disease with stage 1 through stage 4 chronic kidney disease, or unspecified chronic kidney disease; N18.32 Chronic kidney disease, stage 3b
CPT/HCPCS: 81050; 83835; 84300; 84540; 86335

== ENCOUNTER 2024-07-19 16:31 | Outpatient (NON) | payer MEDICARE, SELFPAY ==
--- OUTSIDE RECORDS SUMMARY | 2024-07-19 16:35 | XMS_ITS ---
Author Organization [facility] Address [address] [place] [address] [place] [address] Care Team Providers Care Director Translation Name Role Phone Anabella CARMEN, Joy Primary Care Provider Unavailable Feng Hendrickson Unavailable [phone] MEDICATIONS Medication SIG (Take, Route, Fr equency, Duration) Notes Start Date End Date Status tiZANidine HCl 4 MG 1 tablet as needed O ral 3 x day muscle spasm for 30 days 12/13/2019 Active Encounters Encounter Location Date Provider Diagnosis [facility] [address] [place], [place] [address] [address] 07/08/2024 Feng Hendrickson Radiculopathy, lumbar region M54.16 [...] Provider Name:Feng bean, 07/31/2024 10:00:00 AM, [address] [place], [address],
--- OUTSIDE RECORDS SUMMARY | 2024-07-19 16:35 | XMS_ITS | Clinical Summary ---
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 Gender Identity Not on file Sexual Orientation Not on file Last Filed Vital Signs Vital Sign Reading Time Taken Comments Blood Pressure 120/64 01/04/2017 12:58 PM JUNIOR PROGRAMMER Pulse 65 01/04/2017 12:58 PM JUNIOR PROGRAMMER Temperature 36.5 C (97.7 F) 01/04/2017 12:58 PM JUNIOR PROGRAMMER Respiratory Rate 18 01/04/2017 12:58 PM JUNIOR PROGRAMMER Oxygen Saturation 97% 01/04/2017 12:58 PM JUNIOR PROGRAMMER Inhaled Oxygen Concentration - - Weight 62.6 kg (138 lb) 01/04/2017 12:58 PM JUNIOR PROGRAMMER Height 152.4 cm (5') 01/04/2017 12:58 PM JUNIOR PROGRAMMER Body Mass Index 26.95 01/04/2017 12:58 PM JUNIOR PROGRAMMER Plan of Treatment Health Maintenance Due Date [...] contacted. Electronically signed by: Nathan clark/suzie:05/15/2017 14:18:37 Position Clerk: Cher CARPENTER(Tigre)(M), [facility] letter sent: Additional Imaging Reading location: [facility] BI-RADS: 0 Additional Imaging Evaluation Needed [...] contacted. Electronically signed by: Nathan clark/suzie:05/15/2017 14:18:37 Position Clerk: Cher CARPENTRE(Tigre)(M), [facility] letter sent: Additional Imaging Reading location: [facility] BI-RADS: 0 Additional Imaging Evaluation Needed [facility] Mario Britt MD IMG MAMMO ORDERABLES Kena l Result from Last 3 Months or Most Recently Relevant to Health Maintenance Insurance MEDICARE C HUMANA
--- OUTSIDE RECORDS SUMMARY | 2024-07-19 16:35 | XMS_ITS | Clinical Summary ---
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 Gender Identity Not on file Sexual Orientation Not on file Plan of Treatment Upcoming Encounters Date Type Department Care Team ([facility] st Contact Info) Description 09/05/2024 1:30 PM CDT Office Visit [facility] Oncology and Hematology - [place] [address] [place] [address] [facility] [address] [place] [address] Lazaro Jefferson MD [address] [facility] [address] [place] [address] Health Maintenance Due Date Last [...] Insurance [employer] GOLD PLUS O [facility] HUMANA GOLD PLUS [facility] M[facility] HUMANA GOLD CHOICE MCR
--- OUTSIDE RECORDS SUMMARY | 2024-07-19 16:35 | XMS_ITS ---
Author Organization [facility] Address [address] [place] [address] [place] [address] Care Team Providers Care Senior Account Executive Name Role Phone Anabella CARMEN, Joy Primary Care Provider Unavailable eFng Hendrickson Unavailable [phone] ALLERGIES Allergen (clinical drug ingredient) Drug/Non Drug [...] Date Provider Diagnosis [facility] [address] [facility] [place] [address] 07/01/2024 Feng Hendrickson Sacroiliitis, not elsewhere classified M46.1 ; Radiculopathy, lumbar region M54.16 ; Spondylosis without myelopathy or radiculopathy, lumbar region M47.816 ; Postlaminectomy syndrome, not elsewhere classified M96.1 and 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 The [place] and [place] PDMP were reviewed and were appropriate Other [...] Name:Feng Olivo Lay chrissykaren, 07/31/2024 10:00:00 AM, [address] [place] [address], [phone], Progress Notes * Examination Category Sub-Category Detail [...] axial low back pain. Gonzalo's, Gaenslen's and Beverly's tests are positive bilaterally. There is severe [...]
--- OUTSIDE RECORDS SUMMARY | 2024-07-19 16:36 | XMS_ITS ---
Author Organization [facility] Address [address] [place] [address] Kristine Birch [place] [address] Care Team Providers Care Crisis Worker Name Role Phone Anabella CARMEN, Joy Primary Care Provider Unavailable Feng Hendrickson Unavailable [phone] ALLERGIES Allergen (clinical drug ingredient) Drug/Non Drug [...] pain (max 5x/day) for 30 days MAY 07/02/24 06/03/2024 Active Albuterol Sulfate HFA 108 [...] lumbosacral region (M54.17) Active confirmed Lumbosacral radiculopathy (4124834) VITAL SIGNS Blood pressure systolic 166 mm [...] Location Date Provider Diagnosis [facility] [address] [facility] [place] [address] 07/08/2024 Feng [place]ick Radiculopathy, lumbar region M54.16 [...] Provider Name:Feng Geovani bean, 07/31/2024 10:00:00 AM, [address] [place], [address], Procedure Notes * Category Sub-Category Detail Notes [...] 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 X-ray time: 17 seconds Progress Notes [...] axial low back pain. Gonzalo's, Gaenslen's and [place]'s tests are positive bilaterally. There is severe [...]
--- OUTSIDE RECORDS SUMMARY | 2024-07-19 16:36 | XMS_ITS | Patient Health Record ---
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 Name Role Phone Anabella CARMEN, Joy Primary Care Provider Unavailable Feng Hendrickson Unavailable [phone] ALLERGIES Allergen (clinical drug ingredient) Drug/Non Drug Allergy documented on EMR Reaction Allergy Type Onset Date Status aripiprazole Aripiprazole nausea and vomiting Drug Allergy Active clindamycin Clindamycin diarrhea Drug Allergy Act lucian fentanyl Fentanyl nausea Drug Allergy Active morphine Morphine rash/itching Drug Allergy Acti ve RESULTS Component Value Reference Range Notes Miproto Results (Not yet reviewed by provider) Interpretation: Performing Lab:[id number] [facility], [address] [address] [facility] [address] Angelika Garcia MD Notes/Report: Codeine negative 1 ng/mL Morphine negative 1 ng/mL Hydrocodone positive-120.252 1 ng/mL Norhydrocodone Quantification positive-8.450 2 ng/mL Hydromorphone negative 1 ng/mL Oxycodone negative 1 ng/mL Noroxycodone Quantification negative 2 ng/mL Oxymorphone negative 1 ng/mL Fentanyl Quantification negative 0.2 ng/mL Norfentanyl Quantification negative 1 ng/mL Methadone negative 2 ng/mL EDDP (Methadone metabolite) negative 2 ng/mL Tramadol Quantification negative 5 ng/mL B-Rsnjtmven-Jdktnhio Quantification negative 5 ng/ mL Alprazolam negative [...] 6-WALTER (Heroin metabolite) Quantification negative 1 ng/mL [facility] Results (Not yet reviewed by provider) Interpretation: Performing Lab:[id number] [facility], [address] [address] [facility] [address] Angelika Garcia MD Notes/Report: Acetyl fentanyl: Fentanyl [...] 100 ng/mL Tramadol Quantification negative 100 ng/mL X-jkjdwpiaa-cizktspv Quantification negative 100 n g/mL E-Sdlcnfyjo-Otkwzkyz Quantification negative 100 n g/mL Alpha-Hydroxyalprazolam Quantification negative 20 ng/mL 3-Etcrp-Zgsdwmcgub Quantification negative 20 ng/m L Lorazepam Quantification [...] (Kratom alkaloid ) Quantification negative 1 ng/mL 4-WY-Mnhhdpiwynq (Kratom alk aloid) Quantification negative 1 ng/mL Ethyl Glucuronide Quantification positive-814.348 500 ng/mL Ethyl Sulfate Quantification negative 500 ng/mL [facility] Results (Not yet reviewed by provider) Interpretation: Performing Lab:[id number] [facility], [address] [address] [facility] [address] Angelika Garcia MD Notes/Report: 4-ANPP: Fentanyl Negative. Acetyl fentanyl: Fentanyl Negative. Acetyl norfenta nyl: Fentanyl Negative. Acryl fentanyl: Fentanyl Negative. Carfentanil: Fentany l Negative. Para-fluorofentanyl: Fentanyl Negative. Codeine Quantification negative 50 ng/mL Morphine Quantification negative 50 ng/mL Hydrocodone Quantification positive-58573.023 50 ng/mL Norhydrocodone Quantification positive-> 6400 50 [...] 100 ng/mL Tramadol Quantification negative 100 ng/mL W-rlpgichrn-khminpaa Quantification negative 100 n g/mL V-Cezgonyop-Ytbmblhf Quantification negative 100 n g/mL Tapentadol Quantification negative 50 ng/mL Meperidine Quantification negative 50 ng/mL Normeperidine Quantification negative 50 ng/mL Alpha-Hydroxyalprazolam Quantification negative 20 ng/mL 3-Wrcuw-Jvgsygslhz Quantification negative 20 ng/m L Lorazepam Quantification negative 40 ng/mL Nordiazepam Quantification negative 40 ng/mL Temazepam Quantification negative 50 ng/mL Oxazepam Quantification negative 40 ng/mL Amphetamine Quantification positive-> 84297 100 ng/mL Methylphenidate Quantification negative 50 ng/mL [...] 10 ng/mL Flubromazolam Quantification negative 10 ng/mL URR671 metabolite Quantification negative 10 ng/mL ZMI298 metabolite Quantification negative 10 ng/mL RCS4 metabolite Quantification negative 10 ng/mL XLR11/UR144 metabolite negative 10 ng/mL 5F-ADB-M7 negative 10 ng/mL MC-LWARJCBY-K6 negative 10 ng/mL SEMF-FDKSMSWG-Q2 negative 10 ng/mL Eutylone Quantification negative 10 ng/mL Methylone Quantification negative 3 ng/mL Xylazine Quantification negative 10 ng/mL 4-hydroxy Xylazine Quantification negative 10 ng/m L Mitragynine (Kratom alkaloid ) Quantification negative 1 ng/mL 7-IJ-Bhavhwfckqw (Kratom alk aloid) Quantification negative 1 ng/mL ETHANOL negative 20 mg/dL mg/dL ETHYL GLUCURONIDE SCREEN negative 500 ng/mL Ethyl Glucuronide Quantification negative 500 ng/m L Ethyl Sulfate Quantification negative 500 ng/mL CREATININE normal-139.3 >20 mg/dL mg/dL OXIDANT normal-0 <200 ug/mL ug/mL PH normal-4.9 4.5 - 9.5 SPECIFIC GRAVITY normal-1.024 1.003 - 1.035 [facility] Results (Not yet reviewed by provider) Interpretation: Performing Lab:[id number] [facility], [address] [address] [facility] [address] Angelika Garcia MD Notes/Report: Acetyl fentanyl: Fentanyl [...] 100 ng/mL Tramadol Quantification negative 100 ng/mL I-rnurlneba-sgwpdcum Quantification negative 100 n g/mL V-Wrtgxlrte-Kubkatdw Quantification negative 100 n g/mL Alpha-Hydroxyalprazolam Quantification negative 20 ng/mL 0-Enmdv-Esrsvbfouq Quantification negative 20 ng/m L Lorazepam Quantification negative 40 ng/mL Nordiazepam Quantification negative 40 ng/mL Temazepam Quantification negative 50 ng/mL Oxazepam Quantification negative 40 ng/mL Amphetamine Quantification positive-5864.671 100 ng/mL Methamphetamine Quantification negative 100 ng/mL [...] (Kratom alkaloid ) Quantification negative 1 ng/mL 5-FD-Wmhpqrhjanc (Kratom alk aloid) Quantification negative 1 ng/mL [...] (F40.231) Active confirmed Fear of medical treatment (244074795) Problem Brachial plexus disorders (G54.0) Active confirmed Brachial p cassandra disorder (4809594) Problem Chronic pain syndrome (G89.4) Active confirmed Chronic ji n syndrome (519057694) Problem Unilateral primary osteoarthritis, left knee (M17.12) Active confirmed Osteoarth ritis of knee (515450386) Problem Unspecified osteoarthritis, unspecified site (M19.90) Active confirmed Osteoarthritis (987268334) Problem Pain in right shoulder (M25.511) Active confirmed Pain of r ight shoulder region (finding) (2508679067) Problem Pain in left shoulder (M25.512) Active confirmed Shoulder joint pain (343977356) Problem Sacroiliitis, not elsewhere classified (M46.1) Active confirmed Solitary sacroiliitis (378428580) Problem Spondylosis without myelopathy or radiculopathy, lumbar region (M47.816) Active confirmed Lumbosacral spondylosis without myelopathy (98313563) Problem Spondylosis without myelopathy or radiculopathy, lumbosacral region (M47.817) Active confirmed Lumbosacral spondylosis without myelopathy (disorder) (41066203) Problem Intervertebral disc disorders with radiculopathy, lumbar 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) Active confirmed Radiculopathy due to lumbar intervertebral disc disorder (193169088102897 ) L4-5 HNP Problem Other intervertebral disc degeneration, 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 confirmed Degeneration of lumbar intervertebral disc (16717583) Problem Radiculopathy, lumbar region (M54.16) Active confirmed Lumbar radiculopathy (038271124) Problem Radiculopathy, lumbosacral region (M54.17) Active confirmed Lumbosacral radiculopathy (9254045) Problem Postlaminectomy syndrome, not elsewhere classified (M96.1) Active confirmed Post-lami nectomy syndrome (30214812) Problem Osseous stenosis of neural canal 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) Active confirmed Spinal stenosis of lumbar region (41555831) Problem Intervertebral disc stenosis of neural canal of lumbar region (M99.53) Active confirmed Spinal stenosis of lumbar region (74043779) 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 Encounters Encounter Location Date Provider Diagnosis [facility] [address] [place] [address] 09/07/2023 Feng Stynowick [facility] [address] [place] [address] 10/24/2023 Feng Stynowick Radiculopathy, lumba r region M54.16 [facility] [address] [place] [address] 10/26/2023 Feng Stynowick Radiculopathy, lumba r region M54.16 [facility] [address] [place] [address] 12/19/2023 Feng Stynowick Radiculopathy, lumba r region M54.16 [facility] [address] [place] [address] [place] [address] 01/29/2024 Feng Stynowick Radiculopathy, lumba r region M54.16 [facility] [address] [place] [address] [place] [address] 02/19/2024 Feng Stynowick Radiculopathy, lumba r region M54.16 [facility] [address] [place] [address] [place] [address] 03/18/2024 Feng Stynowick [facility] [address] [place] [address] [place] [address] 03/27/2024 Feng Stynowick [facility] [address] [place] [address] [place] [address] 04/26/2024 Feng Stynowick Radiculopathy, lumba r region M54.16 [facility] [address] [place] [address] [place] [address] 07/08/2024 Feng Stynowick Radiculopathy, lumba r region M54.16 [facility] [address] [place] [address] [place] [address] 05/10/2024 Feng Stynowick Sacroiliitis, not elsewhere classified M46.1 [facility] [address] [place] [address] [place] [address] 02/16/2024 Feng Stynowick Radiculopathy, lumba r region M54.16 ; Intervertebral disc disorders with radiculopathy, lumbar region M51.16 and Osseous stenosis of neural canal of lumbar region M99.33 [facility] [address] [place] [address] [place] [address] 07/08/2024 Feng Stynowick Radiculopathy, lumba r region M54.16 ; Radiculopathy, lumbosacral region M54.17 and Osseous stenosis of neural canal of lumbar region M99.33 [facility] [address] [place], [place] [address] [address] 03/26/2024 Feng Stynowick Spondylosis without myelopathy or radiculopathy, lumbar region M47.816 and Spondylosis without myelopathy or radiculopathy, lumbosacral region M47.817 [facility] [address] [place] [address] [place] [address] 01/02/2024 Feng Stynowick Sacroiliitis, not elsewhere classified M46.1 [facility] [address] [place] [address] [place] [address] 11/06/2023 Feng Stynowick Radiculopathy, lumba r region M54.16 ; Intervertebral disc disorders with radiculopathy, lumbar region M51.16 and Osseous stenosis of neural canal of lumbar region M99.33 [facility] [address] [place] [address] [place] [address] 09/06/2023 Feng Stynowick Spondylosis without myelopathy or radiculopathy, lumbar region M47.816 and Spondylosis without myelopathy or radiculopathy, lumbosacral region M47.817 [facility] [address] [place] [address] 07/24/2023 Feng Stynowick Radiculopathy, lumba r region M54.16 ; Other intervertebral disc degeneration, lumbar region M51.36 and Osseous stenosis of neural canal of lumbar region M99.33 [facility] [address] [place] [address] 07/31/2023 Feng Stynowick Radiculopathy, lumba r region M54.16 ; Sacroiliitis, not elsewhere classified M46.1 ; Spondylosis without myelopathy or radiculopathy, lumbar region M47.816 ; Postlaminectomy syndrome, not elsewhere classified M96.1 ; Other intervertebral disc degeneration, lumbar region M51.36 ; Osseous stenosis of neural canal of lumbar region M99.33 ; 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 and rodent 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 (current) use of opiate analgesic Z79.891 [facility] [address] [place] [address] [place] [address] 08/28/2023 Feng Stynowick Radiculopathy, lumba r region M54.16 ; Spondylosis without myelopathy or radiculopathy, lumbar region M47.816 ; Sacroiliitis, not elsewhere classified M46.1 ; Postlaminectomy syndrome, not elsewhere classified M96.1 ; Other intervertebral disc degeneration, lumbar region M51.36 ; Osseous stenosis of neural canal of lumbar region M99.33 ; 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 and rodent 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 (current) use of opiate analgesic Z79.891 [facility] [address] [place] [address] 09/27/2023 Feng Stynowick Radiculopathy, lumba r region M54.16 ; Spondylosis without myelopathy or radiculopathy, lumbar region M47.816 ; Sacroiliitis, not elsewhere classified M46.1 ; Postlaminectomy syndrome, not elsewhere classified M96.1 ; Other intervertebral disc degeneration, lumbar region M51.36 ; Osseous stenosis of neural canal of lumbar region M99.33 ; 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 and rodent 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 (current) use of opiate analgesic Z79.891 [facility] [address] [place] [address] 10/04/2023 Feng Stynowick [facility] [address] [place] [address] 10/30/2023 Feng Stynowick Radiculopathy, lumba r region M54.16 ; Spondylosis without myelopathy or radiculopathy, lumbar region M47.816 ; Sacroiliitis, not elsewhere classified M46.1 ; Postlaminectomy syndrome, not elsewhere classified M96.1 ; Other intervertebral disc degeneration, lumbar region M51.36 ; Osseous stenosis of neural canal of lumbar region M99.33 ; 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 and skilled nursing (current) use of opiate analgesic Z79.891 [facility] [address] [place] [address] 10/24/2023 Feng Stynowick Radiculopathy, lumba r region M54.16 ; Spondylosis without myelopathy or radiculopathy, lumbar region M47.816 ; Sacroiliitis, not elsewhere classified M46.1 ; Postlaminectomy syndrome, not elsewhere classified M96.1 ; Other intervertebral disc degeneration, lumbar region M51.36 ; Osseous stenosis of neural canal of lumbar region M99.33 ; 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 and skilled nursing (current) use of opiate analgesic Z79.891 [facility] [address] [place] [address] 11/29/2023 Feng Stynowick Radiculopathy, lumba r region M54.16 ; Spondylosis without myelopathy or radiculopathy, lumbar region M47.816 ; Sacroiliitis, not elsewhere classified M46.1 ; Postlaminectomy syndrome, not elsewhere classified M96.1 ; Other intervertebral disc degeneration, lumbar region M51.36 ; Osseous stenosis of neural canal of lumbar region M99.33 ; 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 and skilled nursing (current) use of opiate analgesic Z79.891 [facility] [address] [place] [address] 12/27/2023 Feng Stynowick Radiculopathy, lumba r region M54.16 ; Sacroiliitis, not elsewhere classified M46.1 ; Spondylosis without myelopathy or radiculopathy, lumbar region M47.816 ; Postlaminectomy syndrome, not elsewhere classified M96.1 ; Other intervertebral disc degeneration, lumbar region M51.36 ; Osseous stenosis of neural canal of lumbar region M99.33 ; 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 and skilled nursing (current) use of opiate analgesic Z79.891 [facility] [address] [place] [address] 01/25/2024 Feng Stynowick Radiculopathy, lumba r region M54.16 ; Sacroiliitis, not elsewhere classified M46.1 ; Spondylosis without myelopathy or radiculopathy, lumbar region M47.816 ; Postlaminectomy syndrome, not elsewhere classified M96.1 ; Other intervertebral disc degeneration, lumbar region M51.36 ; Osseous stenosis of neural canal of lumbar region M99.33 ; 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 and rodent 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 (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) use of opiate analgesic Z79.891 [facility] [address] [place] [address] 01/29/2024 Feng Stynowick Radiculopathy, lumba r region M54.16 ; Sacroiliitis, not elsewhere classified M46.1 ; Spondylosis without myelopathy or radiculopathy, lumbar region M47.816 ; Postlaminectomy syndrome, not elsewhere classified M96.1 ; Other intervertebral disc degeneration, lumbar region M51.36 ; Osseous stenosis of neural canal of lumbar region M99.33 ; 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 and rodent 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 (current) use of opiate analgesic Z79.891 [facility] [address] [place] [address] 02/06/2024 Feng Stynowick Radiculopathy, lumba r region M54.16 ; Sacroiliitis, not elsewhere classified M46.1 ; Spondylosis without myelopathy or radiculopathy, lumbar region M47.816 ; Postlaminectomy syndrome, not elsewhere classified M96.1 ; Other intervertebral disc degeneration, lumbar region M51.36 ; Osseous stenosis of neural canal of lumbar region M99.33 ; 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 and skilled nursing (current) use of opiate analgesic Z79.891 [facility] [address] [place] [address] 03/06/2024 Feng Stynowick Radiculopathy, lumba r region M54.16 ; Spondylosis without myelopathy or radiculopathy, lumbar region M47.816 ; Sacroiliitis, not elsewhere classified M46.1 ; Postlaminectomy syndrome, not elsewhere classified M96.1 ; Other intervertebral disc degeneration, lumbar region M51.36 ; Osseous stenosis of neural canal of lumbar region M99.33 ; 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 and rodent 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 (current) use of opiate analgesic Z79.891 [facility] [address] [place] [address] 05/03/2024 Feng Stynowick Spondylosis without myelopathy or radiculopathy, lumbar region M47.816 ; Sacroiliitis, not elsewhere classified M46.1 ; Radiculopathy, lumbar region M54.16 ; Postlaminectomy syndrome, not elsewhere classified M96.1 ; Other intervertebral disc degeneration, lumbar region M51.36 ; Osseous stenosis of neural canal of lumbar region M99.33 ; 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 and rodent 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 (current) use of opiate analgesic Z79.891 [facility] [address] [place] [address] 04/05/2024 Feng Stjeffick Radiculopathy, lumba r region M54.16 ; Spondylosis without myelopathy or radiculopathy, lumbar region M47.816 ; Sacroiliitis, not elsewhere classified M46.1 ; Postlaminectomy syndrome, not elsewhere classified M96.1 ; Other intervertebral disc degeneration, lumbar region M51.36 ; Osseous stenosis of neural canal of lumbar region M99.33 ; 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 and skilled nursing (current) use of opiate analgesic Z79.891 [facility] [address] [place] [address] 06/03/2024 Feng Stjeffick Sacroiliitis, not elsewhere classified M46.1 ; Radiculopathy, lumbar region M54.16 ; Spondylosis without myelopathy or radiculopathy, lumbar region M47.816 ; Postlaminectomy syndrome, not elsewhere classified M96.1 ; Other intervertebral disc degeneration, lumbar region M51.36 ; Osseous stenosis of neural canal of lumbar region M99.33 ; 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 and rodent 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 (current) use of opiate analgesic Z79.891 [facility] [address] [place] [address] 07/01/2024 Feng Stynowick Sacroiliitis, not elsewhere classified M46.1 ; Radiculopathy, lumbar region M54.16 ; Spondylosis without myelopathy or radiculopathy, lumbar region M47.816 ; Postlaminectomy syndrome, not elsewhere classified M96.1 and rodent 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 (current) use of opiate analgesic Z79.891 [...] to fully comply with the above. The [facility] PDMP were reviewed and were [...] to fully comply with the above. The [facility] PDMP were reviewed and were [...] to fully comply with the above. The [place] PD[place] were reviewed and were appropriate 10/24/2023 [...] to fully comply with the above. The [place] PDMP were reviewed and were appropriate 10/30/2023 [...] to fully comply with the above. The [facility] PDMP were reviewed and were [...] to fully comply with the above. The [place] PD[place] were reviewed and were appropriate 12/19/2023 [...] to fully comply with the above. The [facility] PDMP were reviewed and were [...] to fully comply with the above. The [facility] PDMP were reviewed and were [...] to fully comply with the above. The [place] PD[place] were reviewed and were appropriate 01/29/2024 [...] to fully comply with the above. The [place] PDMP were reviewed and were appropriate 02/06/2024 [...] to fully comply with the above. The [place] PD[place] were reviewed and were appropriate 03/06/2024 [...] to fully comply with the above. The [place] PD[place] were reviewed and were appropriate 04/05/2024 [...] to fully comply with the above. The [place] PD[place] were reviewed and were appropriate 07/01/2024 [...] to fully comply with the above. The [place] PD[place] were reviewed and were appropriate 07/01/2024 [...] to fully comply with the above. 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 (current) use of opiate analgesic (ICD-10 - Z79.891) 10/24/2023 skilled nursing (current) use of opiate analgesic (ICD-10 - [...] Lumbar Spine with and without Cont rast (03380) 04/25/2022 MRI : Lumbar Spine with and without Cont rast (89745) 02/01/2022 XRAY right shoulder 09/09/2020 [facility] 01/03/2022 [facility] 03/29/2022 [facility] 09/16/2022 [facility] 06/01/2023 [facility] 08/28/2023 [facility] 11/29/2023 [facility] 03/06/2024 [facility] 05/31/2024 Next Appt Details Provider Name:Feng Geovani bean, 07/31/2024 10:00:00 AM, [address] [place], [address], Insurance Providers Payer Name Payer Address Payer Phone Subscriber Number Group Number Insured Name Patient Relationship to Insured Coverage Start Date Coverage End Date [employer] Claims [address] [address] [place] [phone] [id number] MIKE PADGETT Self - patient is the insured 8 MEDICAL (GENERAL) HISTORY Medical History History ICD Code Hypertension Stomach Ulcers Depression Insomnia GERD Anemia Asthma Migraine Surgical History Surgery Date(Month/Year) Pain Pump Removal 2011 Multiple Lumbar Surgeries
== END 2024-07-19 16:32 | disposition home or self-care (01) ==
LOC: ANHLAB 16:34
PROVIDERS: PCP Nurse Practitioner Family; Visit Provider Internal Medicine Nephrology
DX: I10 Essential (primary) hypertension (principal)
CPT/HCPCS: 82530

== ENCOUNTER 2024-08-12 11:32 | Outpatient (CLI) | payer MEDICARE, SELFPAY ==
--- NOTE | ~2024-08-12 | US_ITS ---
EXAM: RENAL ULTRASOUND HISTORY: N18.32 - Chronic kidney disease, stage 3b COMPARISON: None FINDINGS: RIGHT KIDNEY: 10.2 x 5.4 x 5.9 cm. The parenchyma of the right kidney is increased in echogenicity. No hydronephrosis or bulky renal calculi. Multiple rounded anechoic avascular foci detected. The largest within the upper pole measures 22 mm in greatest dimension. LEFT KIDNEY: 6.8 x 3.5 x 3.6 cm No hydronephrosis or renal calculi. The parenchyma of the left kidney is increased in echogenicity. A single rounded avascular anechoic focus is present within the lower pole of the left kidney measuri ng 27 mm in greatest dimension. Incidental notation is made of significant splenomegaly, with the spleen measuring 20 cm in longitudi nal dimension BLADDER: Only minimally distended, but otherwise unremarkable. IMPRESSION: No hydronephrosis or renal calculi. Findings suggesting medical renal disease. Size asymmetry between the bilateral kidneys, with the right kidney markedly larger than the left. Incidental notation is made of significant splenomegaly, as detailed above. Reviewed, dictated and finalized at location A. IMPRESSION: No hydronephrosis or renal calculi. Findings suggesting medical renal disease. Size asymmetry between the bilateral kidneys, with the right kidney markedly la rger than the left. Incidental notation is made of significant splenomegaly, as detailed above.
== END 2024-08-12 11:33 | disposition home or self-care (01) ==
LOC: MICIMG 11:33
PROVIDERS: PCP Family Medicine; Visit Provider Internal Medicine Nephrology
DX: I12.9 Hypertensive chronic kidney disease with stage 1 through stage 4 chronic kidney disease, or unspecified chronic kidney disease (principal); N18.32 Chronic kidney disease, stage 3b; E78.5 Hyperlipidemia, unspecified; N28.89 Other specified disorders of kidney and ureter
CPT/HCPCS: 76775

== ENCOUNTER 2024-08-12 12:11 | Outpatient (CLI) | payer MEDICARE, SELFPAY ==
[2024-08-12 12:51] LABS: Hematocrit 32.3 % (37.0-47.0); Hemoglobin 10.2 g/dL (12.0-15.0); Mean Corpuscular HGB Conc 31.6 g/dl (32-36); Mean Corpuscular Hemoglobin 26.9 pg (26-34); Mean Corpuscular Volume 85.2 fl (80-100); Mean Platelet Volume 8.6 fl (7.4-10.4); Platelet Count Result 177 k/mm3 (150-375); Red Blood Count 3.79 M/mm3 (4.2-5.4); Red Cell Distribution Width 15.1 % (11.5-14.5); White Blood Count 4.2 K/mm3 (4.5-10.0)
[2024-08-12 13:05] LABS: Albumin Level 4.4 g/dL (3.5-5.1); Anion Gap 11 mmol/L (4-12); Blood Urea Nitrogen 50 mg/dL (7-17); Calcium 10.3 mg/dL (8.4-10.2); Carbon Dioxide 23 mmol/L (22-30); Chloride 106 mmol/L (98-107); Estimated Glomerular Filt Rate 30; Glucose 83 mg/dL (65-110); Phosphorus 4.3 mg/dL (2.5-4.5); Potassium 4.9 mmol/L (3.4-5.0); Sodium 140 mmol/L (137-145)
[2024-08-12 13:10] LABS: Creatinine Urine 125.9 mg/dL
[2024-08-12 13:29] LABS: Parathyroid Intact < 14.5 pg/mL (14.5-75.2)
[2024-08-12 13:37] LABS: Total Protein Urine Random 267 mg/dL; Ur Ttl Prot Creatinine Ratio 2.12 mg/mg (0-0.20)
== END 2024-08-12 12:12 | disposition home or self-care (01) ==
LOC: ANHLAB 12:12
PROVIDERS: PCP Family Medicine; Visit Provider Internal Medicine Nephrology
DX: I12.9 Hypertensive chronic kidney disease with stage 1 through stage 4 chronic kidney disease, or unspecified chronic kidney disease (principal); N18.32 Chronic kidney disease, stage 3b
CPT/HCPCS: 36415; 80069; 82570; 83970; 84156; 85027

== ENCOUNTER 2024-09-05 14:08 | Outpatient (CLI) | payer MEDICARE, SELFPAY ==
--- NOTE | 2024-09-05 | CY_PTH ---
PATIENT: Kristin Medley LOC: ANHLAB #:[id number] AGE/SX: 69/F ROOM: RE09/05/[address]: Lazaro Jefferson MD : 1955 BED: DIS: 09/05/2024 SPEC #: [id number] RECD: 09/06/24 08:07 STATUS: STEVEN REQ #: [id number] IDALIA: 09/05/24 00:[address]: Lazaro Jefferson DEPT: [facility] Cytology RECD BY: Giulia Tijerina ENTERED: 09/06/24 08:08 SP TYPE: Cytology OTHR DR: Joy Kyle MD Tissues: A - Flow Procedures: Flow Cytometry
--- OUTSIDE RECORDS SUMMARY | 2024-09-05 14:22 | XMS_ITS | Clinical Summary ---
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 Active carvediloL (COREG) 3.125 mg tablet Take 3.125 mg by mouth every 12 hours. 07/02/2024 Active chlorthalidone (HYGROTON) 25 mg tablet Take 1 Tablet by mouth daily. 07/04/2024 Active ferrous sulfate 325 mg (65 mg iron) tablet Take 1 Tablet by mouth 2 times daily. 08/26/2024 Active fluticasone propionate (FLONASE) 50 mcg/spray [place], Suspension nasal inhaler 2 times daily. Active HYDROcodone-acet aminophen (NORCO) 10-325 mg Tablet Take 1 Tablet by mouth every 6 hours as needed. Active losartan-hydroCH LOROthiazide (HYZAAR) 100-25 mg tablet Take 1 Tablet by mouth daily. 05/30/2024 Active irbesartan (AVAPRO) 150 mg tablet Take 1 Tablet by mouth daily. 07/04/2024 Active tiZANidine (ZANAFLEX) 4 mg Tablet TAKE 1 TABLET BY MOUTH 3 TIMES A DAY NEEDED FOR MUSCLE SPASM FOR 30 DAYS Active traZODone (DESYREL) 100 mg tablet Take 100 mg by mouth 3 times daily. Active hydrOXYzine HCL (ATARAX) 25 mg tablet Take 25 mg by mouth 3 times daily as needed for Itching. Active hydroCHLOROthiaz luciano 12.5 mg tablet Take 12.5 mg by mouth daily. Active metoprolol succinate (TOPROL XL) 25 mg Extended Release 24 hour tablet Take 25 mg by mouth daily. Active MAGNESIUM CITRATE ORAL Take 250 mg by mouth daily. Active CYANOCOBALAMIN, VITAMIN B-12, ORAL Take by mouth. Active Active Problems No known active problems Encounters Date Type Department Care Team Description 09/05/2024 1:30 PM CDT Office Visit [facility] Oncology and Hematology [facility] [address] [place] [phone] Lazaro Jefferson MD Non-Hodgkin's lymphoma of spleen, unspecified non-Hodgkin lymphoma type (CMS/HCC) (Primary Dx); CML (chronic myelocytic leukemia) ([facility]) 08/12/2024 Abstract [facility] Oncology and Hematology [facility] [address] [place] [address] Lazaro Jefferson MD from Last 3 Months Family History Medical History Relation Name Comments No Known Problems Brother 1 Heart Disease Brother 2 No Known Problems Brother 3 No Known Problems Child 1 No Known Problems Child 2 Cancer - Other Father Heart Disease Father Breast Cancer Mother Diabetes Mother Heart Disease Mother Relation Name Status Comments Brother 1 Brother 2 Alive Brother 3 Child 1 Alive Child 2 Father Mother Social History Tobacco Use Types Packs/Day Years Used Date Smoking Tobacco: Former Cigarettes 0.5 10 0 09/05/1984 - 09/05/1994 Smokeless Tobacco: Never Alcohol Use Standard Drinks/Week Comments Yes 0 (1 standard drink = 0.6 oz pur e alcohol) Socially Comments Unknown Sex and Gender Information Value Date Recorded Sex Assigned at Not on file 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 Gender Identity Not on file Sexual Orientation Not on file Last Filed Vital Signs Vital Sign Reading Time Taken Comments Blood Pressure 149/87 09/05/2024 1:37 PM CDT Pulse 69 09/05/2024 1:34 PM CDT Temperature 37.2 C (99 F) 09/05/2024 1:34 PM CDT Respiratory Rate 15 09/05/2024 1:34 PM CDT Oxygen Saturation 95% 09/05/2024 1:34 PM CDT Inhaled Oxygen Concentration - - Weight 50.4 kg (111 lb 3.2 oz) 09/05/2024 1:34 P M CDT Height 152.4 cm (5') 09/05/2024 1:34 PM CDT Body Mass Index 21.72 09/05/2024 1:34 PM CDT Plan of Treatment Upcoming Encounters Date Type Department Care Team (Late st Contact Info) Description 09/24/2024 2:15 PM CDT Office Visit [facility] Oncology and Hematology - [place] [address] [facility] [address] [place] [address] Lazaro Jefferson MD [address] [facility] [address] [place] [address] Health Maintenance Due Date Last [...] PCV) 08/28/2015 08/27/2014 BREAST CANCER SCREENING 2018 05/13/19 18, 2017, 09/01/2014, Additional history exists OSTEOPOROSIS SCREENING 05/13/2019 09/01/2011 DTAP/TDAP/TD VACCINES (2 - T d or Tdap) 12/05/2023 12/04/2013, 06/09/2005 Medicare Advantage ([place]) Preventative Visit/Annual Wellness Visit 02/21/2024 INFLUENZA VACCINE (#1) 2024 7, 02/09/2016, 02/04/2015, Additional history exists Insurance [facility] [facility]
--- OUTSIDE RECORDS SUMMARY | 2024-09-05 14:22 | XMS_ITS ---
Author Organization [facility] Address [address] [place] [address] VIDHYA Johnson [address] Care Team Providers Care Surveyor Chain Helper Name Role Phone Anabella CARMEN, Joy Primary Care Provider Unavailable Feng Hendrickson Unavailable [phone] ALLERGIES Allergen (clinical drug ingredient) Drug/Non Drug [...] and last worked in 1986 in a [employer]. 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 She [...] Date Provider Diagnosis [facility] [address] 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 The [facility] [place] PDMP were reviewed and were appropriate Sacroiliitis, [...] is agreeable to proceeding at this time. [facility] (current) use of o piate analgesic The [...] iac joint injection, Reason: Provider Name:Feng bean, 09/06/2024 10:00:00 AM, [address] [place] [address], [phone], Provider Name:Feng bean, 09/27/2024 10:00:00 AM, [address] [place] [address], [phone], Progress Notes * Examination Category Sub-Category Detail [...] axial low back pain. Gonzalo's, Gaenslen's and [place]'s tests are positive bilaterally. There is severe [...]
--- OUTSIDE RECORDS SUMMARY | 2024-09-05 14:22 | XMS_ITS | Encounter Summary ---
Author Organization [facility] Address [address] [place] [address] Care Team Providers Care Bed Placement Coordinator Name Role Phone Unavailable Primary Care Provider Unavailabl e Reason for Referral * Laboratory Services (Routine) - Open Specialty Diagnoses / Procedures Referred By Emeterio jones Referred To Contact Diagnoses CML (chronic myelocytic leukemia) (CMS/HCC) Procedures BCR/ABL1, QUANTITATIVE W/REFLEX Lazaro Jefferson MD [address] [facility] [address] [address] Phone: tel: fax: Referral ID Status Reason Start Date Expiration Date Visits Re quested Visits Authorized [id number] Open 09/05/2024 10/06/2025 1 1 * PET Scan (Routine) - Pending Review Specialty Diagnoses / Procedures Referred By Emeterio jones Referred To Contact Diagnoses Non-Hodgkin's lymphoma of spleen, unspecified non-Hodgkin lymphoma type (CMS/HCC) Procedures PET TUMOR OR INFECTION IMG W CT SKB MDLazaro Jackson MD [address] [place] [address] Phone: tel: fax: [place] [phone] Referral ID Status Reason Start Date Expiration Date Visits Requested Visits Authorized [id number] Pending Review [facility] CTS 09/05/2024 10/06/2025 1 1 Encounter Details Date Type Department Care Team (Late st Contact Info) Description 09/05/2024 1:30 PM CDT Office Visit [facility] Hematology [facility] [address] [place] [address] Lazaro Jefferson MD [address] [facility] [address] [place] [phone] Non-Hodgkin's lymphoma of spleen, unspecified non-Hodgkin lymphoma type (CMS/HCC) (Primary Dx); CML (chronic myelocytic leukemia) (CMS/HCC) Social History Tobacco Use Types Packs/Day Years Used Date Smoking Tobacco: Former Cigarettes 0.5 10 0 09/05/1984 - 09/05/1994 Smokeless Tobacco: Never Alcohol Use Standard Drinks/Week Comments Yes 0 (1 standard drink = 0.6 oz pur e alcohol) Socially Comments Unknown Sex and Gender Information Value Date Recorded Sex Assigned at Not on file 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 Gender Identity Not on file Sexual Orientation Not on file documented as of this encounter Last Filed Vital Signs Vital Sign Reading [...] Mass Index 21.72 09/05/2024 1:34 PM CDT documented in this encounter Plan of Treatment Upcoming Encounters Date Type Department Care Team (Late st Contact Info) Description 09/24/2024 2:15 PM CDT Office Visit [facility] Hematology [place] [address] [place] [address] Lazaro Jefferson MD [address] [facility] [address] [address] [place] [address] Scheduled Orders Name Type Priority Associated Diagnoses Orde r Schedule CBC WITH DIFFERENTIAL Lab Stat Non-Hodgkin's lymphoma of spleen, unspecified non-Hodgkin lymphoma type (CMS/HCC) Expected: 09/05/2024, Expires: 09/05/2025 COMPREHENSIVE METABOLIC PANEL Lab Stat Non-Hodgkin's lymphoma of spleen, unspecified non-Hodgkin lymphoma type (CMS/HCC) Expected: 09/05/2024, Expires: 09/05/2025 FLOW CYTOMETRY PANEL Lab Routine Non-Hodgkin's lymphoma of spleen, unspecified non-Hodgkin lymphoma type (CMS/HCC) Expected: 09/05/2024, Expires: 09/05/2025 LACTATE DEHYDROGENASE Lab Routine Non-Hodgkin's lymphoma of spleen, unspecified non-Hodgkin lymphoma type (CMS/HCC) Expected: 09/05/2024, Expires: 09/05/2025 PET TUMOR OR INFECTION IMG W CT SKB [facility] Imaging Routine Non-Hodgkin's lymphoma of spleen, unspecified non-Hodgkin lymphoma type (CMS/HCC) Expected: 09/06/2024, Expires: 09/05/2025 IMMUNOGLOBULINS IGG IGA IGM Lab Routine Non-Hodgkin's lymphoma of spleen, unspecified non-Hodgkin lymphoma type (CMS/HCC) Expected: 09/05/2024, Expires: 09/05/2025 KAPPA/LAMBDA, FREE LIGHT CHAINS Lab Routine Non-Hodgkin's lymphoma of spleen, unspecified non-Hodgkin lymphoma type (CMS/HCC) Expected: 09/05/2024, Expires: 09/05/2025 PROTEIN ELECTROPHORESIS W/REFLEX,SERUM Lab Routine Non-Hodgkin's lymphoma of spleen, unspecified non-Hodgkin lymphoma type (CMS/HCC) Expected: 09/05/2024, Expires: 09/05/2025 BCR/ABL1, QUANTITATIVE W/REFLEX Lab Routine CML (chronic myelocytic leukemia) (CMS/HCC) Expected: 09/05/2024, Expires: 09/05/2025 documented as of this encounter Visit Diagnoses Diagnosis Non-Hodgkin's lymphoma of spleen, unspecified non-Hodgkin lymphoma type (CMS/HCC)- Primary CML (chronic myelocytic leukemia) (CMS/HCC) Chronic myeloid leukemia, without mention of having achieved remission documented in this encounter
--- OUTSIDE RECORDS SUMMARY | 2024-09-05 14:22 | XMS_ITS ---
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 Iron Molder Name Role Phone Anabella CARMEN, Joy Primary Care Provider Unavailable Feng Hendrickson Unavailable [phone] ALLERGIES Allergen (clinical drug ingredient) Drug/Non Drug [...] severe pain (max 5x/day) for 30 days 07/31/2024 Active tiZANidine HCl 4 MG 1 tablet as needed O ral 3 x day muscle spasm for 30 days 12/13/2019 Active Albuterol Sulfate HFA 108 (90 Base) MCG/ACT Inhalation for 16 Activ e Fluticasone-Salmeterol 250-50 MCG/ACT Inhalation for 30 Active Prolia 60 MG/ML Subcutaneous for 180 Active Amphetamine-Dextroamphetam ine 20 MG TAKE 1 TABLET BY MOUTH EVERY DAY Oral for 30 Active hydrOXYzine HCl 25 MG TAKE 1 TABLET BY M OUTH THREE TIMES A DAY NEEDED FOR ANXIETY Oral for 10 Active Carvedilol 3.125 MG TAKE 1 TABLET BY ROYA TH EVERY 12 HOURS WITH A MEAL/FOOD Oral for 90 Active Losartan Potassium-HCTZ 100-25 MG TAKE 1 TABLET BY MOUTH EVERY DAY Oral for 90 Active Metoprolol Succinate ER 25 MG TAKE 1 TABLET BY MOUTH EVERY DAY Oral for 90 Active Ferrous Sulfate 325 (65 Fe) MG 325 MG ORALLY TWICE A DAY Oral for 90 Active Narcan 4 MG/0.1ML 1 actuation in one n ostril x1, Nasally 2-3 minutes as needed until the patient is responsive or EMS arrives Active rOPINIRole HCl 0.5 MG 1 tablet 1 to 3 ho urs before bedtime Orally Once a day Active Voltaren 1 % apply 4 grams to ji nful joint(s) Transdermal 4x/day as needed for pain for 30 days Active [employer] D3 50 MCG (1999) TAKE 1 CAPSULE B Y MOUTH EVERY [...] Lidocaine-Prilocaine 2.5-2.5 % as directed External Active Vitamin D3 1000 UNIT 1 capsule Orally On 09/25/2017 Active Omeprazole 20 MG 1 capsule 30 minutes before morning meal Oral Once a day Active ProAir HFA 108 (90 Base) MCG/ACT 2 puffs as needed Inhalation every 6 hrs 09/25/2017 Active FLUoxetine HCl 40 MG 1 capsule Oral Once a day Active traZODone HCl 100 MG 1 tablet at bedtime Oral Once a day Active SOCIAL HISTORY [...] 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 She is a former smoker. She last smoked in 1987. She denies alcohol or illicit drug abuse. 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 The [place] PDMP were reviewed and were appropriate Other [...] 4 Weeks OPV, Reas on: Provider Name:Feng Geovani bean, 09/06/2024 10:00:00 AM, [address] [place] [address], [phone], Provider Name:Feng baen, 09/27/2024 10:00:00 AM, [address] [facility] [address], [place], [address], Progress Notes * Examination Category Sub-Category Detail [...] axial low back pain. Gonzalo's, Gaenslen's and [place]'s tests are positive bilaterally. There is severe [...] neural foramen. Assessment and Follow-up: Follow-up Plan kavita beasley:: Yes
--- OUTSIDE RECORDS SUMMARY | 2024-09-05 14:23 | XMS_ITS | Patient Health Record ---
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 Name Role Phone Anabella CARMEN, Joy Primary Care Provider Unavailable Feng Hendrickson Unavailable [phone] ALLERGIES Allergen (clinical drug ingredient) Drug/Non Drug Allergy documented on EMR Reaction Allergy Type Onset Date Status aripiprazole Aripiprazole nausea and vomiting Drug Allergy Active clindamycin Clindamycin diarrhea Drug Allergy Act lucian fentanyl Fentanyl nausea Drug Allergy Active morphine Morphine rash/itching Drug Allergy Acti ve RESULTS Component Value Reference Range Notes [facility] Results (Not yet reviewed by provider) Interpretation: Performing Lab:[id number] [facility], [address] [address] [facility] [address] Angelika Garcia MD Notes/Report: Acetyl fentanyl: Fentanyl Negative. Acetyl norfentanyl: Fentanyl Negative. Acr yl fentanyl: Fentanyl Negative. Carfentanil: Fentanyl Negative. Para-fluorofent anyl: Fentanyl Negative. Codeine Quantification negative 50 ng/mL Morphine Quantification negative 50 ng/mL Hydrocodone Quantification positive-2234.389 50 ng/mL Norhydrocodone Quantification positive-2210.955 50 ng/ mL Hydromorphone Quantification positive-114.108 50 ng/mL Oxycodone Quantification negative 50 ng/mL Noroxycodone Quantification negative 50 ng/mL Oxymorphone Quantification negative 50 ng/mL Fentanyl Quantification negative 1 ng/mL Norfentanyl Quantification negative 8 ng/mL Methadone Quantification negative 100 ng/mL EDDP (Methadone metabolite) Quantification negative 100 ng/mL Tramadol Quantification negative 100 ng/mL Q-tniigsyea-awkqzwpa Quantification negative 100 n g/mL D-Owrlwreyq-Nturgeli Quantification negative 100 n g/mL Alpha-Hydroxyalprazolam Quantification negative 20 ng/mL 5-Xhpgm-Mldzygrabf Quantification negative 20 ng/m L Lorazepam Quantification negative 40 ng/mL Nordiazepam Quantification negative 40 ng/mL Temazepam Quantification negative 50 ng/mL Oxazepam Quantification negative 40 ng/mL Amphetamine Quantification positive-> [id number] 100 ng/mL Methamphetamine Quantification negative 100 ng/mL [...] Fen Neg 1 ng/m L Mitragynine (Kratom alkaloid) Quantification negative 1 ng/mL 0-KL-Idqwmnygosl (Kratom alk aloid) Quantification negative 1 ng/mL Ethyl Glucuronide Quantification negative 500 ng/m L Ethyl Sulfate Quantification negative 500 ng/mL [facility] Results (Not yet reviewed by provider) Interpretation: Performing Lab:[id number] i-nexus, [address] [facility] [facility] [address] Angelika Garcia MD Notes/Report: Acetyl fentanyl: Fentanyl [...] 100 ng/mL Tramadol Quantification negative 100 ng/mL H-tkezyhpci-ahtrybpn Quantification negative 100 n g/mL W-Pasdfdqon-Mliwasvf Quantification negative 100 n g/mL Alpha-Hydroxyalprazolam Quantification negative 20 ng/mL 2-Vzncf-Sxpxlvgpwt Quantification negative 20 ng/m L Lorazepam Quantification [...] Fen Neg 1 ng/m L Mitragynine (Kratom alkaloid) Quantification negative 1 ng/mL 8-MQ-Bacmuafsklm (Kratom alk aloid) Quantification negative 1 ng/mL Ethyl Glucuronide Quantification negative 500 ng/m L Ethyl Sulfate Quantification negative 500 ng/mL [facility] Results (Not yet reviewed by provider) Interpretation: Performing Lab:[id number] i-nexus, [address] [facility] [facility] [address] Angelika Garcia MD Notes/Report: Codeine negative 1 ng/mL Morphine negative 1 ng/mL Hydrocodone positive-120.252 1 ng/mL Norhydrocodone Quantification positive-8.450 2 ng/mL Hydromorphone negative 1 ng/mL Oxycodone negative 1 ng/mL Noroxycodone Quantification negative 2 ng/mL Oxymorphone negative 1 ng/mL Fentanyl Quantification negative 0.2 ng/mL Norfentanyl Quantification negative 1 ng/mL Methadone negative 2 ng/mL EDDP (Methadone metabolite) negative 2 ng/mL Tramadol Quantification negative 5 ng/mL H-Coiyevaql-Mjmzigrv Quantification negative 5 ng/ mL Alprazolam negative [...] 6-WALTER (Heroin metabolite) Quantification negative 1 ng/mL [facility] Results (Not yet reviewed by provider) Interpretation: Performing [id number] [facility], [address] [address] [facility] [address] Angelika Garcia MD Notes/Report: Acetyl fentanyl: Fentanyl [...] 100 ng/mL Tramadol Quantification negative 100 ng/mL R-iqiwqogeh-zlfuthvk Quantification negative 100 n g/mL M-Smozkvizv-Ktsgxiul Quantification negative 100 n g/mL Alpha-Hydroxyalprazolam Quantification negative 20 ng/mL 6-Qffhy-Mvvedepxad Quantification negative 20 ng/m L Lorazepam Quantification [...] Fen Neg 1 ng/m L Mitragynine (Kratom alkaloid) Quantification negative 1 ng/mL 6-HO-Wwflkvnfaoi (Kratom alk aloid) Quantification negative 1 ng/mL Ethyl Glucuronide Quantification positive-814.348 500 ng/mL Ethyl Sulfate Quantification negative 500 ng/mL REASON FOR REFERRAL No Information MEDICATIONS Medication SIG (Take, Route, Frequency, Duration) Notes Start Date End Date Status Chlorthalidone 25 MG TAKE 1 TABLET BY MOUTH EVERY DAY Oral for 90 Active Irbesartan 150 MG TAKE 1 TABLET BY MOUTH EVERY DAY Oral for 90 Active Narcan 4 MG/0.1ML 1 actuation in one nostril x1, Nasally 2-3 minutes as needed until the patient is responsive or EMS arrives Active Spironolactone 25 MG Oral for 90 Active Ferrous Sulfate 325 (65 Fe) MG 325 MG ORALLY TWICE A DAY Oral for 90 Active Donepezil HCl 5 MG TAKE 1 TABLET BY MOUTH EVERYDAY AT BEDTIME Oral for 90 Active NIFEdipine ER Osmotic Release 30 MG 30 MG ORALLY DAILY Oral for 90 Active Fluticasone Propionate 50 MCG/ACT 1 spray in each nostril Nasal Twice a day Active Lidocaine-Prilocaine 2.5-2.5 % as directed External Active amLODIPine Besylate 5 MG 1 tablet Oral Once a day Active ZyPREXA 5 MG 1 tablet Orally Once a day Active Voltaren 1 [...] 1 tablet Oral Once a day Active Albuterol Sulfate HFA 108 (90 Base) MCG/ACT Inhalation for 16 A ctive Prolia 60 MG/ML Subcutaneous for 180 Active hydrOXYzine HCl 25 MG TAKE 1 TABLET BY MOUTH THREE TIMES A DAY NEEDED FOR ANXIETY Oral for 10 Active Vitamin D3 1000 UNIT 1 capsule Orally On a day 09/25/2017 Active Amphetamine-Dextroamphe tamine 20 MG TAKE 1 TABLET BY MOUTH EVERY DAY Oral for 30 Active ProAir HFA 108 (90 Base) MCG/ACT 2 puffs as needed Inhalation every 6 hrs 09/25/2017 Active Omeprazole 20 MG 1 capsule 30 minutes before morning meal Oral Once a day Active Fluticasone-Salmeterol 250-50 [...] 30 days MAY FILL 08/29/24 08/28/2024 Active traZODone HCl 100 MG 1 tablet at bedtime Oral Once a day Active FLUoxetine HCl 40 MG 1 capsule Oral Once a day Active tiZANidine HCl 4 MG 1 tablet as needed Oral 3 x day muscle spasm for 30 days 12/13/2019 Active SOCIAL HISTORY Tobacco Use: Social History [...] ast year? No Points 0 Interpretation Negative Section Notes: The patient is disabled and last worked in 1986. 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 She denies tobacco, alcohol, and drug use. The patient is disabled and last worked in 1986. 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 She denies tobacco, alcohol, and drug use. The patient is disabled and last worked in 1986. 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 She denies tobacco, alcohol, and drug use. The patient is disabled and last worked in 1986. 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 She denies tobacco, alcohol, and drug use. The patient is disabled and last worked in 1986. 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 She denies tobacco, alcohol, and drug use. The patient is disabled and last worked in 1986. 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 She denies tobacco, alcohol, and drug use. The patient is disabled and last worked in 1986. 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 She denies tobacco, alcohol, and drug use. The patient is disabled and last worked in 1986. 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 She denies tobacco, alcohol, and drug use. The patient is disabled and last worked in 1986. 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 She denies tobacco, alcohol, and drug use. The patient is disabled and last worked in 1986. 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 She denies tobacco, alcohol, and drug use. The patient is disabled and last worked in 1986. 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 She denies tobacco, alcohol, and drug use. The patient is disabled and last worked in 1986. 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 She denies tobacco, alcohol, and drug use. The patient is disabled and last worked in 1986. 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 She denies tobacco, alcohol, and drug use. The patient is disabled and last worked in 1986. 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 She denies tobacco, alcohol, and drug use. The patient is disabled and last worked in 1986. 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 She denies tobacco, alcohol, and drug use. The patient is disabled and last worked in 1986. 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 She denies tobacco, alcohol, and drug use. The patient is disabled and last worked in 1986. 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 She denies tobacco, alcohol, and drug use. The patient is disabled and last worked in 1986. 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 She denies tobacco, alcohol, and drug use. The patient is disabled and last worked in 1986. 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 She denies tobacco, alcohol, and drug use. The patient is disabled and last worked in 1986. 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 She is a former smoker. She last smoked in 1987. She denies alcohol or illicit drug abuse. 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 She is a former smoker. She last smoked in 1987. She denies alcohol or illicit drug abuse. 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 She is a former smoker. She last smoked in 1987. She denies alcohol or illicit drug abuse. 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 She is a former smoker. She last smoked in 1987. She denies alcohol or illicit drug abuse. 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 She is a former smoker. She last smoked in 1987. She denies alcohol or illicit drug abuse. 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 She is a former smoker. She last smoked in 1987. She denies alcohol or illicit drug abuse. 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 She is a former smoker. She last smoked in 1987. She denies alcohol or illicit drug abuse. 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 She is a former smoker. She last smoked in 1987. She denies alcohol or illicit drug abuse. 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 She is a former smoker. She last smoked in 1987. She denies alcohol or illicit drug abuse. 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 She is a former smoker. She last smoked in 1987. She denies alcohol or illicit drug abuse. 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 She is a former smoker. She last smoked in 1987. She denies alcohol or illicit drug abuse. 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 She is a former smoker. She last smoked in 1987. She denies alcohol or illicit drug abuse. 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 She is a former smoker. She last smoked in 1987. She denies alcohol or illicit drug abuse. 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 She is a former smoker. She last smoked in 1987. She denies alcohol or illicit drug abuse. 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 She is a former smoker. She last smoked in 1987. She denies alcohol or illicit drug abuse. 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 She is a former smoker. She last smoked in 1987. She denies alcohol or illicit drug abuse. 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 She is a former smoker. She last smoked in 1987. She denies alcohol or illicit drug abuse. 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 She is a former smoker. She last smoked in 1987. She denies alcohol or illicit drug abuse. 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 She is a former smoker. She last smoked in 1987. She denies alcohol or illicit drug abuse. 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 She is a former smoker. She last smoked in 1987. She denies alcohol or illicit drug abuse. 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) Problem Chronic pain syndrome (G89.4) Active confirmed Chronic ji n syndrome (527490234) Problem Unilateral primary osteoarthritis, left knee (M17.12) Active confirmed Osteoarth ritis of knee (785360776) Problem Unspecified osteoarthritis, unspecified site (M19.90) Active confirmed Osteoarthritis (355363474) Problem Pain in right shoulder (M25.511) Active confirmed Pain of r ight shoulder region (finding) (9583433654) Problem Pain in left shoulder (M25.512) Active confirmed Shoulder joint pain (741974379) Problem Sacroiliitis, not elsewhere classified (M46.1) Active confirmed Solitary sacroiliitis (939063645) Problem Spondylosis without myelopathy or radiculopathy, lumbar region (M47.816) Active confirmed Lumbosacral spondylosis without myelopathy (56125674) Problem Spondylosis without myelopathy or radiculopathy, lumbosacral region (M47.817) Active confirmed Lumbosacral spondylosis without myelopathy (disorder) (84624001) Problem Intervertebral disc disorders with radiculopathy, lumbar 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) Active confirmed Radiculopathy due to lumbar intervertebral disc disorder (072319601493068 ) L4-5 HNP Problem Other intervertebral disc degeneration, 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 confirmed Degeneration of lumbar intervertebral disc (05964428) Problem Radiculopathy, lumbar region (M54.16) Active confirmed Lumbar radiculopathy (327358751) Problem Radiculopathy, lumbosacral region (M54.17) Active confirmed Lumbosacral radiculopathy (4534939) Problem Postlaminectomy syndrome, not elsewhere classified (M96.1) Active confirmed Post-lami nectomy syndrome (77944119) Problem Osseous stenosis of neural canal 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) Active confirmed Spinal stenosis of lumbar region (44915242) Problem Intervertebral disc stenosis of neural canal of lumbar region (M99.53) Active confirmed Spinal stenosis of lumbar region (87195991) 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 Pt discharged to home ambulatory with steady gait, no sign of acute distress. Blood pressure diastolic 90 mm Hg 08/28/2024 Height 60 in 08/28/2024 Blood pressure systolic 171 mm Hg 08/28/2024 Weight 135 lbs 08/28/2024 BMI 26.36 kg/m2 08/28/2024 Encounters Encounter Location Date Provider Diagnosis [facility] [address] [place] [address] [facility] [address] 09/07/2023 Feng Stynowick [facility] [address] [place] [address] [place] [address] 10/24/2023 Feng Stynowick Radiculopathy, lumba r region M54.16 [facility] [address] [place] [address] [place] [address] 10/26/2023 Feng Stynowick Radiculopathy, lumba r region M54.16 [facility] [address] [place], [place] [address], [place] [address] 12/19/2023 Feng Stynowick Radiculopathy, lumba r region M54.16 [facility] [address] [place] [address] [place] [address] 01/29/2024 Feng Stynowick Radiculopathy, lumba r region M54.16 [facility] [address] [facility] [place] [address] 02/19/2024 Feng Stynowick Radiculopathy, lumba r region M54.16 [facility] [address] [place] [address], [place] [address] 03/18/2024 Feng Stynowick [facility] [address] [place] [address] [place] [address] 03/27/2024 Feng Stynowick [facility] [address] [place], [place] [address], [place] [address] 04/26/2024 Feng Stynowick Radiculopathy, lumba r region M54.16 [facility] [address] [facility] [place] [address] 07/08/2024 Feng Stynowick Radiculopathy, lumba r region M54.16 [facility] [address] [place] [address] [place] [address] 07/30/2024 Feng Stynowick Radiculopathy, lumba r region M54.16 [facility] [address] [place] [address] [place] [address] 05/10/2024 Feng Stynowick Sacroiliitis, not elsewhere classified M46.1 [facility] [address] [place] [address] [place] [address] 02/16/2024 Feng Stynowick Radiculopathy, lumba r region M54.16 ; Intervertebral disc disorders with radiculopathy, lumbar region M51.16 and Osseous stenosis of neural canal of lumbar region M99.33 [facility] [address] [place] [address] [place] [address] 07/08/2024 Feng Stynowick Radiculopathy, lumba r region M54.16 ; Radiculopathy, lumbosacral region M54.17 and Osseous stenosis of neural canal of lumbar region M99.33 [facility] [address] [place], [place] [address], [place] [address] 03/26/2024 Feng Stynowick Spondylosis without myelopathy or radiculopathy, lumbar region M47.816 and Spondylosis without myelopathy or radiculopathy, lumbosacral region M47.817 [facility] [address] [place] [address] [place] [address] 01/02/2024 Feng Stynowick Sacroiliitis, not elsewhere classified M46.1 [facility] [address] [place] [address] [place] [address] 11/06/2023 Feng Stynowick Radiculopathy, lumba r region M54.16 ; Intervertebral disc disorders with radiculopathy, lumbar region M51.16 and Osseous stenosis of neural canal of lumbar region M99.33 [facility] [address] [place] [address] [facility] [place] [address] 09/06/2023 Feng Stynowick Spondylosis without myelopathy or radiculopathy, lumbar region M47.816 and Spondylosis without myelopathy or radiculopathy, lumbosacral region M47.817 [facility] [address] [place] [address] 09/27/2023 Feng Stynowick Radiculopathy, lumba r region M54.16 ; Spondylosis without myelopathy or radiculopathy, lumbar region M47.816 ; Sacroiliitis, not elsewhere classified M46.1 ; Postlaminectomy syndrome, not elsewhere classified M96.1 ; Other intervertebral disc degeneration, lumbar region M51.36 ; Osseous stenosis of neural canal of lumbar region M99.33 ; 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 and watermaster (current) use of opiate analgesic Z79.891 [facility] [address] [place] [address] 10/04/2023 Feng Stynowick [facility] [address] [place] [address] 10/30/2023 Feng Stynowick Radiculopathy, lumba r region M54.16 ; Spondylosis without myelopathy or radiculopathy, lumbar region M47.816 ; Sacroiliitis, not elsewhere classified M46.1 ; Postlaminectomy syndrome, not elsewhere classified M96.1 ; Other intervertebral disc degeneration, lumbar region M51.36 ; Osseous stenosis of neural canal of lumbar region M99.33 ; 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 and watermaster (current) use of opiate analgesic Z79.891 [facility] [address] [place] [address] 10/24/2023 Feng Stynowick Radiculopathy, lumba r region M54.16 ; Spondylosis without myelopathy or radiculopathy, lumbar region M47.816 ; Sacroiliitis, not elsewhere classified M46.1 ; Postlaminectomy syndrome, not elsewhere classified M96.1 ; Other intervertebral disc degeneration, lumbar region M51.36 ; Osseous stenosis of neural canal of lumbar region M99.33 ; 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 and alf (current) use of opiate analgesic Z79.891 [facility] [address] [place] [address] 11/29/2023 Feng Stynowick Radiculopathy, lumba r region M54.16 ; Spondylosis without myelopathy or radiculopathy, lumbar region M47.816 ; Sacroiliitis, not elsewhere classified M46.1 ; Postlaminectomy syndrome, not elsewhere classified M96.1 ; Other intervertebral disc degeneration, lumbar region M51.36 ; Osseous stenosis of neural canal of lumbar region M99.33 ; 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 and watermaster (current) use of opiate analgesic Z79.891 [facility] [address] [place] [address] 12/27/2023 Feng Stynowick Radiculopathy, lumba r region M54.16 ; Sacroiliitis, not elsewhere classified M46.1 ; Spondylosis without myelopathy or radiculopathy, lumbar region M47.816 ; Postlaminectomy syndrome, not elsewhere classified M96.1 ; Other intervertebral disc degeneration, lumbar region M51.36 ; Osseous stenosis of neural canal of lumbar region M99.33 ; 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 and alf (current) use of opiate analgesic Z79.891 [facility] [address] [place] [address] 01/25/2024 Feng Stynowick Radiculopathy, lumba r region M54.16 ; Sacroiliitis, not elsewhere classified M46.1 ; Spondylosis without myelopathy or radiculopathy, lumbar region M47.816 ; Postlaminectomy syndrome, not elsewhere classified M96.1 ; Other intervertebral disc degeneration, lumbar region M51.36 ; Osseous stenosis of neural canal of lumbar region M99.33 ; 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 and alf (current) use of opiate analgesic Z79.891 [facility] [address] [place] [address] 01/29/2024 Feng Stynowick Radiculopathy, lumba r region M54.16 ; Sacroiliitis, not elsewhere classified M46.1 ; Spondylosis without myelopathy or radiculopathy, lumbar region M47.816 ; Postlaminectomy syndrome, not elsewhere classified M96.1 ; Other intervertebral disc degeneration, lumbar region M51.36 ; Osseous stenosis of neural canal of lumbar region M99.33 ; 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 and alf (current) use of opiate analgesic Z79.891 [facility] [address] [place] [address] 02/06/2024 Feng Stynowick Radiculopathy, lumba r region M54.16 ; Sacroiliitis, not elsewhere classified M46.1 ; Spondylosis without myelopathy or radiculopathy, lumbar region M47.816 ; Postlaminectomy syndrome, not elsewhere classified M96.1 ; Other intervertebral disc degeneration, lumbar region M51.36 ; Osseous stenosis of neural canal of lumbar region M99.33 ; 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 and alf (current) use of opiate analgesic Z79.891 [facility] [address] [place] [address] 03/06/2024 Feng Stynowick Radiculopathy, lumba r region M54.16 ; Spondylosis without myelopathy or radiculopathy, lumbar region M47.816 ; Sacroiliitis, not elsewhere classified M46.1 ; Postlaminectomy syndrome, not elsewhere classified M96.1 ; Other intervertebral disc degeneration, lumbar region M51.36 ; Osseous stenosis of neural canal of lumbar region M99.33 ; 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 and alf (current) use of opiate analgesic Z79.891 [facility] [address] [place] [address] 05/03/2024 Feng Stynowick Spondylosis without myelopathy or radiculopathy, lumbar region M47.816 ; Sacroiliitis, not elsewhere classified M46.1 ; Radiculopathy, lumbar region M54.16 ; Postlaminectomy syndrome, not elsewhere classified M96.1 ; Other intervertebral disc degeneration, lumbar region M51.36 ; Osseous stenosis of neural canal of lumbar region M99.33 ; 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 and watermaster (current) use of opiate analgesic Z79.891 [facility] [address] [place] [address] 04/05/2024 Feng Stynowick Radiculopathy, lumba r region M54.16 ; Spondylosis without myelopathy or radiculopathy, lumbar region M47.816 ; Sacroiliitis, not elsewhere classified M46.1 ; Postlaminectomy syndrome, not elsewhere classified M96.1 ; Other intervertebral disc degeneration, lumbar region M51.36 ; Osseous stenosis of neural canal of lumbar region M99.33 ; 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 and watermaster (current) use of opiate analgesic Z79.891 [facility] [address] [place] [address] 06/03/2024 Feng Stynowick Sacroiliitis, not elsewhere classified M46.1 ; Radiculopathy, lumbar region M54.16 ; Spondylosis without myelopathy or radiculopathy, lumbar region M47.816 ; Postlaminectomy syndrome, not elsewhere classified M96.1 ; Other intervertebral disc degeneration, lumbar region M51.36 ; Osseous stenosis of neural canal of lumbar region M99.33 ; 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 and watermaster (current) use of opiate analgesic Z79.891 [facility] [address] [place] [address] 07/01/2024 Feng Stynowick Sacroiliitis, not elsewhere classified M46.1 ; Radiculopathy, lumbar region M54.16 ; Spondylosis without myelopathy or radiculopathy, lumbar region M47.816 ; Postlaminectomy syndrome, not elsewhere classified M96.1 and alf (current) use of opiate analgesic Z79.891 [facility] [address] [place] [address] 07/31/2024 Feng Stynowick Radiculopathy, lumba r region M54.16 ; Radiculopathy, lumbosacral region M54.17 ; Osseous stenosis of neural canal of lumbar region M99.33 ; Sacroiliitis, not elsewhere classified M46.1 and alf (current) use of opiate analgesic Z79.891 [facility] [address] [place] [address] 08/28/2024 Feng Stynowick Radiculopathy, lumba r region M54.16 ; Sacroiliitis, not elsewhere classified M46.1 ; Radiculopathy, lumbosacral region M54.17 ; Osseous stenosis of neural canal of lumbar region M99.33 and watermaster (current) use of opiate analgesic Z79.891 ASSESSMENTS Encounter Date Diagnosis Assessment Notes Treatment Notes Treatment Clinical Notes Section Notes 09/06/2023 Spondylosis without myelopathy or radiculopathy, lumbar [...] to fully comply with the above. The [place] PD[place] were reviewed and were appropriate 09/27/2023 [...] comply with the above. The [facility] PDMP were reviewed and were appropriate [...] to fully comply with the above. The [place] were reviewed and were appropriate 10/30/2023 Spondylosis without myelopathy or radiculopathy, lumbar region (ICD-10 - M47.816) 10/26/2023 Radiculopathy, lumbar region (ICD-10 - M54.16) [...] to fully comply with the above. The [place] were reviewed and were appropriate 11/29/2023 Spondylosis without myelopathy or radiculopathy, lumbar region (ICD-10 - M47.816) 12/19/2023 Radiculopathy, lumbar region (ICD-10 - M54.16) [...] to fully comply with the above. The [place] were reviewed and were appropriate 12/27/2023 [...] to fully comply with the above. The [place] were reviewed and were appropriate 01/29/2024 [...] comply with the above. The [facility] PDMP were reviewed and were appropriate [...] comply with the above. The [facility] PDMP were reviewed and were appropriate [...] to fully comply with the above. The [place] were reviewed and were appropriate 03/06/2024 [...] to fully comply with the above. The [place] were reviewed and were appropriate 04/05/2024 [...] to fully comply with the above. The [place] were reviewed and were appropriate 07/01/2024 Sacroiliitis, not elsewhere classified (ICD-10 - M46.1) 07/08/2024 Radiculopathy, lumbar region (ICD-10 - M54.16) 07/31/2024 Radiculopathy, lumbar region (ICD-10 - M54.16) [...] to fully comply with the above. The [place] were reviewed and were appropriate 07/31/2024 Radiculopathy, lumbosacral region (ICD-10 - M54.17) 07/30/2024 Radiculopathy, lumbar region (ICD-10 - M54.16) 08/28/2024 Radiculopathy, lumbar region (ICD-10 - M54.16) [...] to fully comply with the above. The [place] were reviewed and were appropriate 07/08/2024 Radiculopathy, lumbar region (ICD-10 - M54.16) 07/08/2024 Radiculopathy, lumbosacral region (ICD-10 - M54.17) 08/28/2024 Sacroiliitis, not elsewhere classified (ICD-10 - [...] is agreeable to proceeding at this time. 07/08/2024 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) 08/28/2024 Radiculopathy, lumbosacral region (ICD-10 - M54.17) 07/31/2024 [...] to fully comply with the above. The [place] were reviewed and were appropriate 07/01/2024 [...] to fully comply with the above. The [place] were reviewed and were appropriate 04/05/2024 [...] syndrome, not elsewhere classified (ICD-10 - M96.1) 07/31/2024 Sacroiliitis, not elsewhere classified (ICD-10 - M46.1) 08/28/2024 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) 07/31/2024 watermaster (current) use of opiate analgesic (ICD-10 - Z79.891) 08/28/2024 alf (current) use of opiate analgesic (ICD-10 - 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 06/03/2024 Other intervertebral disc degeneration, lumbar region (ICD-10 - M51.36) 07/01/2024 watermaster (current) use of opiate analgesic (ICD-10 - [...] degeneration, lumbar region (ICD-10 - M51.36) 09/27/2023 Osseous stenosis of neural canal of [...] injections and transfusions (ICD-10 - F40.231) 09/27/2023 watermaster (current) use of opiate analgesic (ICD-10 - Z79.891) 10/24/2023 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) 10/30/2023 alf (current) use of opiate analgesic (ICD-10 - Z79.891) 11/29/2023 watermaster (current) use of opiate analgesic (ICD-10 - 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 12/27/2023 watermaster (current) use of opiate analgesic (ICD-10 - Z79.891) 01/25/2024 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) 01/29/2024 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) 02/06/2024 watermaster (current) use of opiate analgesic (ICD-10 - Z79.891) 03/06/2024 watermaster (current) use of opiate analgesic (ICD-10 - 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 04/05/2024 alf (current) use of opiate analgesic (ICD-10 - Z79.891) 05/03/2024 alf (current) use of opiate analgesic (ICD-10 - Z79.891) 06/03/2024 watermaster (current) use of opiate analgesic (ICD-10 - 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 01/29/2024 alf (current) use of opiate analgesic (ICD-10 - Z79.891) 01/25/2024 watermaster (current) use of opiate analgesic (ICD-10 - Z79.891) 10/24/2023 alf (current) use of opiate analgesic (ICD-10 - Z79.891) 09/06/2023 Other The patient voiced understanding of [...] Spent with Patient and Medical Decision Makinminutes 07/31/2024 Other The above-named patient was evaluated [...] with Patient and Medical Decision Makin minutes 08/28/2024 Other The above-named patient was evaluated [...] Lumbar Spine with and without Cont rast (04065) 04/25/2022 MRI : Lumbar Spine with and without Cont rast ([id number]) 02/01/2022 XRAY right shoulder 09/09/2020 Millennium Results 01/03/2022 Millennium Results 03/29/2022 Millennium Results 09/16/2022 Millennium Results 06/01/2023 Millennium Results 08/28/2023 Millennium Results 11/29/2023 Millennium Results 03/06/2024 Millennium Results 05/31/2024 [facility] Results 08/27/2024 Next Appt Details Provider Name:Feng lowekaren, 09/06/2024 10:00:00 AM, [address] [place] [address], [phone], Provider Name:Feng bean, 09/27/2024 10:00:00 AM, [address] [place] [address], [phone], Insurance Providers Payer Name Payer Address Payer Phone Subscriber Number Group Number Insured Name Patient Relationship to Insured Coverage Start Date Coverage End Date [employer] Claims [address] [address] [place] [address] [id number] MIKE PADGETT Self - patient is the insured 8 MEDICAL (GENERAL) HISTORY Medical History History ICD Code Hypertension Stomach Ulcers Depression Insomnia GERD Anemia Asthma Migraine Surgical History Surgery Date(Month/Year) Pain Pump Removal 2011 Multiple Lumbar Surgeries
--- OUTSIDE RECORDS SUMMARY | 2024-09-05 14:23 | XMS_ITS | Clinical Summary ---
Author Organization [facility] Address [address] [facility] [address] [place] [address] Care Team Providers Care Maintenance Craftsman Name Role Phone Unavailable Primary Care Provider [...] on file Legal Sex Female 3:45 AM PASTRY COOK Gender Identity Not on file Sexual Orientation Not on file Last Filed Vital Signs Vital Sign Reading Time Taken Comments Blood Pressure 120/64 01/04/2017 12:58 PM PASTRY COOK Pulse 65 01/04/2017 12:58 PM PASTRY COOK Temperature 36.5 C (97.7 F) 01/04/2017 12:58 PM PASTRY COOK Respiratory Rate 18 01/04/2017 12:58 PM PASTRY COOK Oxygen Saturation 97% 01/04/2017 12:58 PM PASTRY COOK Inhaled Oxygen Concentration - - Weight 62.6 kg (138 lb) 01/04/2017 12:58 PM PASTRY COOK Height 152.4 cm (5') 01/04/2017 12:58 PM PASTRY COOK Body Mass Index 26.95 01/04/2017 12:58 PM PASTRY COOK Plan of Treatment Health Maintenance Due Date Last Done Comments Hepatitis C Virus (HCV) Screening 1955 TdaP Immunization 1955 Cologuard 05/13/1999 Colonoscopy 05/13/1999 Colorectal Cancer Screening 05/13/1999 Immunochemical Fecal Occult Blood 05/13/1999 Pneumococcal Immunization (50+ years) (1 of 1 - PCV) 2004 Zoster Immunization (1 of 2) 2004 SARS-COV-2 Immunization (3 - season) 2023 05/22/2020, 05/01/2020 Influenza Immunization (#1) 10/21/202412/21, 12/23/2011, 12/21/2010, Additional history exists Respiratory Syncytial Virus (RSV) Immunization (Adult) (1 - 1-dose 75+ series) 2029 Mammogram Discontinued 2017 Hepatitis B Immunization Aged Out No longer eligible based on patient's age to complete this topic Human Papillomavirus (HPV) Immunization Aged Out No longer eligible based [...] signed by: Nathan Rojas M.D. bs/suzie:05/15/2017 14:18:37 Pv Design Engineer: Cher CARPENTER(Tigre)(Aurelia), [facility] letter sent: Additional Imaging [facility] BI[facility] 0 Additional Imaging Evaluation Needed [...] signed by: Nathan Rojas M.D. bs/suzie:05/15/2017 14:18:37 Pv Design Engineer: Cher CARPENTER(R)(M), [facility] letter sent: Additional Imaging Reading [facility] BI-RADS: 0 Additional Imaging Evaluation Needed us [facility] Mario Britt MD IMG MAMMO ORDERABLES Kena l Result from Last 3 Months or Most Recently Relevant to Health Maintenance Insurance MEDICARE C HUMANA
--- OUTSIDE RECORDS SUMMARY | 2024-09-05 14:23 | XMS_ITS | Clinical Summary ---
Author Organization [facility] Address [facility] [place] [address] Care Team Providers Care Director Informatics Name Role Phone Dolly Grimes SENIOR EDITOR Primary Care Provider + [phone] Social History Tobacco Use Types Packs/Day Years Used Date Smoking Tobacco: Never Assessed Comments Unknown Sex and Gender Information Value Date Recorded Sex Assigned at Female 04/18/2024 4:10 PM BROTH MIXER Legal Sex Female 4:08 PM BROTH MIXER Gender Identity Not on file Sexual Orientation Not on file Plan of Treatment Health Maintenance Due Date Last Done Comments Colorectal Cancer Screening Colonoscopy (10 Years) 1955 Hepatitis C 1972 Zoster Vaccines (1 of 2) 2004 Annual Medicare Wellness Visit 05/13/2019 Dexa Scan (General) 05/13/2019 09/01/2011 Mammogram Screening 05/13/2019 2017, 09/01/2014 COVID-19 Vaccine (3 - 2023-2 5 season) 2023 05/22/2020, 05/01/2020 DTaP, Tdap [...] on patient's age to complete this topic Insurance [employer] MEDICAID Care Teams Director Informatics Relationship Specialty Start Date End Date Dolly Grimes FNP [facility] [address] [address] PCP - General Nurse Practitioner Family 05/21/24
--- OUTSIDE RECORDS SUMMARY | 2024-09-05 14:23 | XMS_ITS ---
Author Organization [facility] Address [address] [place] [address] [place] [address] Care Team Providers Care Comedian Name Role Phone Anabella CARMEN, Joy Primary Care Provider Unavailable AnnabelFeng jones Unavailable [phone] REASON FOR VISIT refill MEDICATIONS Medication SIG (Take, Route, Fr equency, Duration) Notes Start Date End Date Status tiZANidine HCl 4 MG 1 tablet as needed O ral 3 x day muscle spasm for 30 days 12/13/2019 Active Encounters Encounter Location Date Provider Diagnosis [facility] [address] [place] [address] [address] 07/30/2024 Feng Hendrickson Radiculopathy, lumbar region M54.16 ASSESSMENTS Encounter Date Diagnosis Assessment Notes Treatment Notes Treatment Clinical Notes Section Notes 07/30/2024 Radiculopathy, lumbar region (ICD-10 - M54.16) PLAN OF TREATMENT Medication Medication Name Sig Start Date Stop Date Notes tiZANidine HCl 4 MG 1 tablet as needed O ral 3 x day muscle spasm for 30 days 12/13/2019 Next Appt Details Provider Name:Feng bean, 09/06/2024 10:00:00 AM, [address] [place] [address], [phone], Provider Name:Feng bean, 09/27/2024 10:00:00 AM, [address] [place] [address], [phone],
[2024-09-05 15:00] LABS: Hematocrit 30.0 % (37.0-47.0); Hemoglobin 9.8 g/dL (12.0-15.0); Immature Granulocyte Percent A 0.2 % (0-0.5); Lymphocytes Absolute Auto 0.65 K/mm3 (0.9-3.2); Mean Corpuscular HGB Conc 32.7 g/dl (32-36); Mean Corpuscular Hemoglobin 28.1 pg (26-34); Mean Corpuscular Volume 86.0 fl (80-100); Nucleated Red Blood Cells Absolute Auto 0.000 K/mm3 (0.0-0.012); Nucleated Red Blood Cells Perc 0.0 % (0.0-0.2); Platelet Count Result 141 k/mm3 (150-375); Red Blood Count 3.49 M/mm3 (4.2-5.4); White Blood Count 4.2 K/mm3 (4.5-10.0)
[2024-09-05 16:40] LABS: Alanine Aminotransferase 22 U/L (6-35); Albumin Level 4.2 g/dL (3.5-5.1); Alkaline Phosphatase 74 U/L (38-126); Anion Gap 8 mmol/L (4-12); Aspartate Amino Transferase 44 U/L (14-36); Bilirubin,Total 0.1 mg/dL (0.2-1.3); Blood Urea Nitrogen 52 mg/dL (7-17); Calcium 10.4 mg/dL (8.4-10.2); Carbon Dioxide 23 mmol/L (22-30); Chloride 107 mmol/L (98-107); Estimated Glomerular Filt Rate 27; Glucose 113 mg/dL (65-110); Potassium 5.6 mmol/L (3.4-5.0); Sodium 138 mmol/L (137-145); Total Protein 6.8 g/dL (6.3-8.2)
[2024-09-05 16:45] LABS: Magnesium 2.1 mg/dL (1.6-2.3)
[2024-09-05 20:38] LABS: Immunoglobulin G 391 mg/dL (700-1600)
[2024-09-05 21:37] LABS: Immunoglobulin A < 40 mg/dL (70-400); Immunoglobulin M < 25 mg/dL (40-230)
[2024-09-06 15:09] LABS: Albumin 3.8 g/dL (2.9-4.4); Alpha-1-Globulin 0.3 g/dL (0.0-0.4); Alpha-2-Globulin 0.8 g/dL (0.4-1.0); Gamma Globulin 0.4 g/dL (0.4-1.8)
== END 2024-09-05 14:09 | disposition home or self-care (01) ==
PROVIDERS: PCP Family Medicine; Referring Provider Nurse Practitioner Family; Visit Provider Internal Medicine Hematology & Oncology
DX: E55.9 Vitamin D deficiency, unspecified (principal); C92.10 Chronic myeloid leukemia, BCR/ABL-positive, not having achieved remission; D64.9 Anemia, unspecified
CPT/HCPCS: 36415; 80053; 82306; 82784; 83615; 83735; 84165; 85025; 88184

== ENCOUNTER 2024-09-17 08:41 | Outpatient (CLI) | payer MEDICARE, SELFPAY ==
--- NOTE | ~2024-09-17 | PE_ITS ---
EXAMINATION: PET skull to mid thigh DATE: 09/17/2024 11:16 INDICATION: Non-Hodgkin's lymphoma TECHNIQUE: Blood glucose level was 105 mg/dL. 10.874 mCi of 18-fluorodeoxyglucose (18-FDG) was admini stered i.v. Low dose computed tomography (CT) images were acquired from the base of the brain to the proximal thighs for attenuation correction and anatomic localization. Positron emission tomography (P ET) images were acquired in the same distribution beginning 57 minutes after injection. Images includ ing fused PET/CT images were reconstructed in axial, coronal, and sagittal planes. Automated exposure control technique was employed. The dose-length product was 466.31mGy-cm. COMPARISON: None FINDINGS: Head/neck: There is symmetric increased activity in the oral cavity, nasopharynx, palatine tonsils, laryngeal mu scles, scalene muscles, anterior cervical paraspinal muscles and ocular muscles without CT correlate, likely physiologic. No pathologically enlarged cervical lymphadenopathy or suspicious foci of increa sed FDG uptake in the visualized head or neck. Chest: Calcified left lower lobe nodule consistent with old granulomatous disease. Indeterminate noncalcifie d 3 mm nodule without evident FDG activity at the superior segment of the right lower lobe. No other suspicious pulmonary nodules, pneumonia, pulmonary edema or pleural effusion. Cardiomegaly. Atheroscl erotic coronary artery calcific lesion. Aortic valve calcific lesion. No pericardial effusion. Thorac ic aorta is normal in caliber. 8 x 5 mm mildly FDG avid right axillary lymph node with maximal SUV of 4.5. Abdomen/pelvis/proximal thighs: Physiologic renal accumulation and excretion of FDG activity in the right kidney, bladder and along p ortions of the right ureter. Photopenic defect associated with a 1.3 cm low-attenuation right renal c yst. There is moderate left renal atrophy with asymmetric decreased left renal activity and no discer nible excreted activity in the left renal collecting system. Left nephrolithiasis with 5 stones in th e left kidney measuring up to 7 mm. Photopenic defects associated with a 1.8 cm low-attenuation simpl e left renal cyst as well as a 9 mm hyperdense proteinaceous/hemorrhagic cyst at the lower pole the l eft kidney. Nonobstructing Normal degree and heterogenous pattern of increased uptake throughout the liver without radiologic correlate or dominant FDG avid lesion. Nonspecific splenomegaly measuring 18 .9 cm without discrete splenic lesion or abnormal increased FDG activity. The gallbladder, pancreas, spleen and bilateral adrenal glands are normal. Mild to moderate uptake scattered throughout the arben ls without radiologic correlate, also likely physiologic. Moderate diverticulosis along the descendin g and sigmoid colon without adjacent inflammatory stranding to suggest diverticulitis. The uterus is not identified and has likely been surgically resected. Small amount of likely physiologic free fluid in the deep pelvis. No other abnormal foci of increased FDG uptake or pathologically enlarged lympha denopathy in the abdomen, pelvis or proximal thighs. Musculoskeletal: There is likely physiologic muscular activity without radiologic correlate most prominent at the bila teral hands and forearms intramuscular in the upper arms and about the left shoulder. No suspicious l ytic, blastic or abnormally FDG avid bone lesions. IMPRESSION: 1. Nonspecific splenomegaly measuring 18.9 cm without discrete splenic lesion or abnormally increased FDG activity. 2. Single normal-sized mildly FDG avid right axillary lymph node which is most likely reactive. 3. Moderate left renal atrophy with significantly decreased left renal function when compared with th e right. 4. Nonobstructing left nephrolithiasis. Reviewed, dictated and finalized at location A. IMPRESSION: 1. Nonspecific splenomegaly measuring 18.9 cm without discrete splenic lesion o r abnormally increased FDG activity. 2. Single normal-sized mildly FDG avid right axillary lymph node which is most likely reactive. 3. Moderate left renal atrophy with significantly decreased left renal function when compared with the right. 4. Nonobstructing left nephrolithiasis.
--- OUTSIDE RECORDS SUMMARY | 2024-09-17 08:46 | XMS_ITS | Encounter Summary ---
Author Organization [facility] Address [address] [place] [address] Care Team Providers Care Front Office Director Name Role Phone Unavailable Primary Care Provider Unavailabl e Encounter Details Date Type Department Care Team ([facility] Contact Info) Description 09/11/2024 Orders Only [facility] Oncology and Hematology [facility] [address] [place] [address] Lazaro Jefferson MD [facility] [address] [place] [address] Social History Tobacco Use Types Packs/Day Years Used Date Smoking Tobacco: Former Cigarettes 0.5 10 0 09/05/1984 - 09/05/1994 Smokeless Tobacco: Never Alcohol Use Standard Drinks/Week Comments Yes 0 (1 standard drink = 0.6 oz pur e alcohol) Socially Comments Unknown Sex and Gender Information Value Date Recorded Sex Assigned at Not on file Legal Sex Female 7:14 PM HARD CANDY BATCH MIXER Gender Identity Not on file Sexual Orientation Not on file documented as of this encounter Plan of Treatment Upcoming Encounters Date Type Department Care Team (Late Contact Info) Description 09/24/2024 2:15 PM CDT Office Visit [facility] Oncology and Hematology - [address] [place] [address] Lazaro Jefferson MD [address] [place] [address] documented as of this encounter Procedures Procedure Name Priority Date/Time Associated Diagnosis Comments PROTEIN ELECTROPHORESIS, CSF Routine 09/05/2024 7:44 AM CDT documented in this encounter Results * PROTEIN ELECTROPHORESIS, CSF (09/05/2024 7:44 AM CDT) Cerebrospinal fluid CEREBROSPINAL FLUID / Unknown Lazaro Jefferson MD BODY FLUIDS AND STOOLS Final Re sult documented in this encounter Visit Diagnoses Not on filedocumented in this encounter
--- OUTSIDE RECORDS SUMMARY | 2024-09-17 08:46 | XMS_ITS ---
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 The [place] PDMP were reviewed and were [...] OPV, Reas on: Provider Name:Feng Geovani bean, 09/27/2024 10:00:00 AM, [address] [place], [address], Progress Notes * Examination Category Sub-Category Detail [...] axial low back pain. Gonzalo's, Gaenslen's and [place]'s tests are positive bilaterally. There is severe [...]
--- OUTSIDE RECORDS SUMMARY | 2024-09-17 08:46 | XMS_ITS ---
Author Organization [facility] Address [address] [place] [address] VIDHYA Johnson [address] Care Team Providers Care Manager Technical Services Name Role Phone Anabella CARMEN, Joy Primary Care Provider Unavailable Feng Hendrickson Unavailable [phone] ALLERGIES Allergen (clinical drug ingredient) Drug/Non Drug [...] and last worked in 1986 in a [employer]. 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 The [place] and [place] PDMP were reviewed and were appropriate 08/28/2024 [...] to fully comply with the above. The [facility] [place] PDMP were reviewed and were appropriate Sacroiliitis, [...] is agreeable to proceeding at this time. retirement (current) use of o piate analgesic [...] sacroil iac joint injection, Reason: Provider Name:Feng Geovani bean, 09/27/2024 10:00:00 AM, [address] [place], [address], Progress Notes * Examination Category [...] axial low back pain. Gonzalo's, Gaenslen's and [place]'s tests are positive bilaterally. There is severe [...]
--- OUTSIDE RECORDS SUMMARY | 2024-09-17 08:46 | XMS_ITS ---
Author Organization [facility] Address [address] [place] [address] VIDHYA Johnson [address] Care Team Providers Care Manager Business Planning Name Role Phone Anabella CARMEN, Joy Primary Care Provider Unavailable Feng Hendrickson Unavailable [phone] ALLERGIES Allergen (clinical drug ingredient) Drug/Non Drug [...] Date Provider Diagnosis [facility] [address] [facility] [place] [address] 09/06/2024 Feng Hendrickson Sacroiliitis, not elsewhere classified M46.1 ASSESSMENTS Encounter Date Diagnosis Assessment Notes Treatment Notes Treatment Clinical Notes Section Notes 09/06/2024 Sacroiliitis, not elsewhere classified (ICD-10 - M46.1) PLAN OF TREATMENT Next Appt Details Follow Up: F/U 09/27/24, Lm n: Provider Name:Feng bean, 09/27/2024 10:00:00 AM, [address] [place] [address], [phone], Procedure Notes * Category Sub-Category Detail Notes [...] discharged home in good condition 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 X-ray time: 10 seconds Progress Notes [...] axial low back pain. Gonzalo's, Gaenslen's and [place]'s tests are positive bilaterally. There is severe [...] and Follow-up: Follow-up Plan documen gale:: Yes [facility] Quality 2020: MIPS Documented:: Compliant
--- OUTSIDE RECORDS SUMMARY | 2024-09-17 08:46 | XMS_ITS | Clinical Summary ---
Author Organization [employer] [place] Address [address] [place] [address] Care Team Providers Care Pot Pusher Name Role Phone Unavailable Primary Care Provider [...] 08/26/2024 Active fluticasone propionate (FLONASE) 50 mcg/spray [place], Suspension nasal inhaler 2 times daily. Active [...] Encounters Date Type Department Care Team Description 09/13/2024 Abstract [facility] Oncology and Hematology - [place] [address] [place] [address] Lazaro Jefferson MD 09/13/2024 Abstract [facility] Oncology and Hematology - [place] [address] [place] [address] Conrado Edwards CMA 09/11/2024 Orders Only [facility] Oncology and Hematology [facility] [address] [place] [address] Lazaro Jefferson MD 09/10/2024 External Device Data ST[facility] ABSTRACTION Provider, Abstract 09/10/2024 External Device Data [facility] ABSTRACTION Provider, Abstract 09/10/2024 External Device Data [place] ABSTRACTION Provider, Abstract 09/09/2024 Abstract [facility] Oncology and Hematology - [place] [address] [place] [address] Lazaro Jefferson MD 09/09/2024 Orders Only [facility] Oncology and Hematology - [place] [address] [place] [address] Lazaro Jefferson MD 09/06/2024 Orders Only [facility] Oncology and Hematology - [place] [address] [place] [address] Lazaro Jefferson MD 09/05/2024 1:30 PM CDT Office Visit [facility] Oncology and Hematology - [place] [place] [address] Lazaro Jefferson MD Non-Hodgkin's lymphoma of spleen, unspecified non-Hodgkin lymphoma type (CMS/HCC) (Primary Dx); CML (chronic myelocytic leukemia) (CMS/HCC) 08/12/2024 Abstract [facility] Oncology and Hematology - [place] [address] [facility] [address] [place] [address] Lazaro Jefferson MD from Last [...] on file Legal Sex Female 7:14 PM SWEET DOUGH MIXER Gender Identity Not on file Sexual [...] Description 09/24/2024 2:15 PM CDT Office Visit [facility] Oncology and Hematology - [place] [address] [place] [address] Lazaro Jefferson MD [address] [facility] [address] [place] [address] Health Maintenance Due Date Last Done Comments Pre-Diabetes and Diabetes Screening 1955 ZOSTER VACCINE (1 of 2) 1973 COLORECTAL SCREENING 05/13/1999 Colorectal Cancer Screening 05/13/1999 FIT-DNA Q 3 years 05/13/1999 FIT/FOBT Q 1 year 05/13/1999 Flex Sig/CT Colonography Q 5 years 05/13/1999 RSV VACCINE (60+ or ) (1 - Risk 60-74 years 1-dose series) 2014 PNEUMOCOCCAL VACCINE 50+ YEA RS (2 of 2 - PCV) 08/28/2015 08/27/2014 BREAST CANCER SCREENING 2018 05/13/19 18, 2017, 09/01/2014, Additional history exists OSTEOPOROSIS SCREENING 05/13/2019 09/01/2011 DTAP/TDAP/TD VACCINES (2 - T d or Tdap) 12/05/2023 12/04/2013, 06/09/2005 [place] Preventative Visit/Annual Wellness Visit 02/21/2024 INFLUENZA VACCINE (#1) 2024 7, 02/09/2016, 02/04/2015, Additional history exists Procedures Procedure Name Priority Date/Time Associated Diagnosis Comments FLOW CYTOMETRY REPORT Routine 09/06/2024 11:44 AM CDT KAPPA/LAMBDA LIGHT CHAINS Routine 2024 5:14 PM CDT CBC WITH DIFFERENTIAL Routine 09/05/2024 5:06 PM CDT COMPREHENSIVE METABOLIC PANEL Routine 09/05/2024 2:32 PM CDT IGG Routine 09/05/2024 2:17 PM CDT VITAMIN D 25 HYDROXY Routine 09/05/2024 2:10 PM CDT PROTEIN ELECTROPHORESIS, CSF Routine 09/05/2024 7:44 AM CDT from Last 3 Months Results * FLOW CYTOMETRY REPORT (09/06/2024 11:44 AM CDT) us Lazaro Jefferson MD PATHOLOGY/CYTOLOGY ORDERABLES F inal Result * KAPPA/LAMBDA, FREE LIGHT CHAINS (09/05/2024 5:14 PM CDT) Blood us Lazaro Jefferson MD CHEMISTRY ORDERABLES Final Resu lt * CBC WITH DIFFERENTIAL (09/05/2024 5:06 PM CDT) Blood Result [facility] Lazaro Jefferson MD HEMATOLOGY ORDERABLES Final Res ult * COMPREHENSIVE METABOLIC PANEL (09/05/2024 2:32 PM CDT) Blood Result [facility] Lazaro Jefferson MD CHEMISTRY ORDERABLES Final Resu lt * IGG (09/05/2024 2:17 PM CDT) Blood Result [facility] Lazaro Jefferson MD CHEMISTRY ORDERABLES Final Resu lt * VITAMIN D 25 HYDROXY (09/05/2024 2:10 PM CDT) Blood Result [facility] Lazaro Jefferson MD CHEMISTRY ORDERABLES Final Resu lt * PROTEIN ELECTROPHORESIS, CSF (09/05/2024 7:44 AM CDT) Cerebrospinal fluid CEREBROSPINAL FLUID / Unknown Result [facility] Lazaro Jefferson MD BODY FLUIDS AND STOOLS Final Re sult from Last 3 Months Insurance [email or web address] [facility]
--- OUTSIDE RECORDS SUMMARY | 2024-09-17 08:47 | XMS_ITS | Clinical Summary ---
Author Organization [facility] Address [address] [facility] [address] [place] [address] Care Team Providers Care Trailhead Construction Worker Name Role Phone Unavailable Primary Care Provider [...] on file Legal Sex Female 3:45 AM PAVING MACHINE OPERATOR Gender Identity Not on file Sexual Orientation Not on file Last Filed Vital Signs Vital Sign Reading Time Taken Comments Blood Pressure 120/64 01/04/2017 12:58 PM PAVING MACHINE OPERATOR Pulse 65 01/04/2017 12:58 PM PAVING MACHINE OPERATOR Temperature 36.5 C (97.7 F) 01/04/2017 12:58 PM PAVING MACHINE OPERATOR Respiratory Rate 18 01/04/2017 12:58 PM PAVING MACHINE OPERATOR Oxygen Saturation 97% 01/04/2017 12:58 PM PAVING MACHINE OPERATOR Inhaled Oxygen Concentration - - Weight 62.6 kg (138 lb) 01/04/2017 12:58 PM PAVING MACHINE OPERATOR Height 152.4 cm (5') 01/04/2017 12:58 PM PAVING MACHINE OPERATOR Body Mass Index 26.95 01/04/2017 12:58 PM PAVING MACHINE OPERATOR Plan of Treatment Health Maintenance [...] signed by: Nathan Rojas M.D. bs/suzie:05/15/2017 14:18:37 Recycling Operations Manager: Cher CARPENTER(Tigre)(Aurelia), [facility] letter sent: Additional Imaging Reading location: [facility] BI-RADS: 0 Additional Imaging Evaluation Needed [...] signed by: Nathan Rojas M.D. bs/suzie:05/15/2017 14:18:37 Recycling Operations Manager: Cher CARPENTER(R)(M), [facility] letter sent: Additional Imaging Reading location: [facility] BI-RADS: 0 Additional Imaging Evaluation Needed us [facility] Mario Britt MD IMG MAMMO ORDERABLES Kena l Result from Last 3 Months or Most Recently Relevant to Health Maintenance Insurance MEDICARE C HUMANA
--- OUTSIDE RECORDS SUMMARY | 2024-09-17 08:47 | XMS_ITS | Patient Health Record ---
Author Organization [facility] Address [address] [place] [address] VIDHYA Johnson [address] Care Team Providers Care Parts Room Associate Name Role Phone Anabella CARMEN, Joy Primary Care Provider Unavailable Feng Hendrickson Unavailable [phone] ALLERGIES Allergen (clinical drug ingredient) Drug/Non Drug Allergy documented on EMR Reaction Allergy Type Onset Date Status aripiprazole Aripiprazole nausea and vomiting Drug Allergy Active clindamycin Clindamycin diarrhea Drug Allergy Act lucian fentanyl Fentanyl nausea Drug Allergy Active morphine Morphine rash/itching Drug Allergy Acti ve RESULTS Component Value Reference Range Notes [employer] Results (Not yet reviewed by provider) Interpretation: Performing Lab:[id number] [employer], [address] [address] [facility] [address] Angelika Garcia MD Notes/Report: Acetyl fentanyl: Fentanyl [...] 100 ng/mL Tramadol Quantification negative 100 ng/mL U-zcmunoale-sjogryae Quantification negative 100 n g/mL O-Lvbtzbjwg-Ubelsmmw Quantification negative 100 n g/mL Alpha-Hydroxyalprazolam Quantification negative 20 ng/mL 3-Mibbj-Ffoovxldjl Quantification negative 20 ng/m L Lorazepam Quantification [...] Mitragynine (Kratom alkaloid) Quantification negative 1 ng/mL 7-TT-Qxyjgdgldco (Kratom alk aloid) Quantification negative 1 ng/mL Ethyl Glucuronide Quantification positive-814.348 500 ng/mL Ethyl Sulfate Quantification negative 500 ng/mL [employer] Results (Not yet reviewed by provider) Interpretation: Performing Lab:[id number] [employer], [address] [address] [facility] [address] Angelika Garcia MD Notes/Report: Acetyl fentanyl: Fentanyl [...] 100 ng/mL Tramadol Quantification negative 100 ng/mL H-qgsgtnluf-rjuaraxy Quantification negative 100 n g/mL A-Obspkrbzc-Nluunbul Quantification negative 100 n g/mL Alpha-Hydroxyalprazolam Quantification negative 20 ng/mL 2-Rvuqk-Yirynnobwb Quantification negative 20 ng/m L Lorazepam Quantification negative 40 ng/mL Nordiazepam Quantification negative 40 ng/mL Temazepam Quantification negative 50 ng/mL Oxazepam Quantification negative 40 ng/mL Amphetamine Quantification positive-> 14450 100 ng/mL Methamphetamine Quantification negative 100 ng/mL [...] Mitragynine (Kratom alkaloid) Quantification negative 1 ng/mL 0-XM-Yaegfojujeg (Kratom alk aloid) Quantification negative 1 ng/mL Ethyl Glucuronide Quantification negative 500 ng/m L Ethyl Sulfate Quantification negative 500 ng/mL [employer] Results (Not yet reviewed by provider) Interpretation: Performing Lab:[id number] [employer], [address] [address] [facility] [address] Angelika Garcia MD Notes/Report: Acetyl fentanyl: Fentanyl [...] 100 ng/mL Tramadol Quantification negative 100 ng/mL C-ztuhwabrt-zqntkqyz Quantification negative 100 n g/mL N-Kgittgfbx-Rnvjcbkg Quantification negative 100 n g/mL Alpha-Hydroxyalprazolam Quantification negative 20 ng/mL 5-Pvtny-Jrqhispylf Quantification negative 20 ng/m L Lorazepam Quantification [...] Mitragynine (Kratom alkaloid) Quantification negative 1 ng/mL 8-GA-Xlawvrmfltl (Kratom alk aloid) Quantification negative 1 ng/mL Ethyl Glucuronide Quantification negative 500 ng/m L Ethyl Sulfate Quantification negative 500 ng/mL [employer] Results (Not yet reviewed by provider) Interpretation: Performing Lab:[id number] [employer], [address] [address] [facility] [address] Angelika Garcia MD Notes/Report: Codeine negative 1 ng/mL Morphine negative 1 ng/mL Hydrocodone positive-120.252 1 ng/mL Norhydrocodone Quantification positive-8.450 2 ng/mL Hydromorphone negative 1 ng/mL Oxycodone negative 1 ng/mL Noroxycodone Quantification negative 2 ng/mL Oxymorphone negative 1 ng/mL Fentanyl Quantification negative 0.2 ng/mL Norfentanyl Quantification negative 1 ng/mL Methadone negative 2 ng/mL EDDP (Methadone metabolite) negative 2 ng/mL Tramadol Quantification negative 5 ng/mL B-Hpwkhhdwk-Abbwsmsa Quantification negative 5 ng/ mL Alprazolam negative [...] Duration) Notes Start Date End Date Status Lidocaine-Prilocaine 2.5-2.5 % as directed External Active tiZANidine HCl 4 MG 1 tablet as needed Oral 3 x day muscle spasm for 30 days 12/13/2019 Active HYDROcodone-Acetaminoph en 10-325 MG 1 tablet Orally every 4 to 6 hrs as needed for severe pain (max 5x/day) for 30 days MAY FILL 08/29/24 07/31/2024 Active Losartan Potassium 25 MG 1 tablet Oral Once a day Active Fluticasone Propionate 50 MCG/ACT 1 spray in each nostril Nasal Twice a day Active Amphetamine-Dextroamphe tamine 20 MG TAKE 1 TABLET BY MOUTH EVERY DAY Oral for 30 Active Narcan 4 MG/0.1ML 1 actuation in one nostril x1, Nasally 2-3 minutes as needed until the patient is responsive or EMS arrives Active Metoprolol Succinate ER 25 MG TAKE 1 TABLET BY MOUTH EVERY DAY Oral for 90 Active hydrOXYzine HCl 25 MG TAKE 1 TABLET BY MOUTH THREE TIMES A DAY NEEDED FOR ANXIETY Oral for 10 Active rOPINIRole HCl 0.5 MG 1 tablet [...] needed for pain for 30 days Active Carvedilol 3.125 MG TAKE 1 TABLET BY MOUTH EVERY 12 HOURS WITH A MEAL/FOOD Oral for 90 Active Fluticasone-Salmeterol 250-50 MCG/ACT Inhalation for 30 Active Losartan Potassium-HCTZ 100-25 MG TAKE 1 TABLET BY MOUTH EVERY DAY Oral for 90 Active Vitamin D3 1000 UNIT 1 capsule Orally On a day 09/25/2017 Active NIFEdipine ER Osmotic Release 30 MG 30 MG ORALLY DAILY Oral for 90 Active ProAir HFA 108 (90 Base) MCG/ACT 2 puffs as needed Inhalation every 6 hrs 09/25/2017 Active Chlorthalidone 25 MG TAKE 1 TABLET BY MOUTH EVERY DAY Oral for 90 Active amLODIPine Besylate 5 MG 1 tablet Oral Once a day Active ZyPREXA 5 MG 1 tablet Orally Once a day Active Donepezil HCl 5 MG TAKE 1 TABLET BY MOUTH EVERYDAY AT BEDTIME Oral for 90 Active FLUoxetine HCl 40 MG 1 capsule Oral Once a day Active Albuterol Sulfate HFA 108 (90 Base) MCG/ACT Inhalation for 16 A ctive Prolia 60 MG/ML Subcutaneous for 180 Active Omeprazole 20 MG 1 capsule 30 minutes before morning meal Oral Once a day Active Irbesartan 150 MG TAKE 1 TABLET BY MOUTH EVERY DAY Oral for 90 Active traZODone HCl 100 MG 1 tablet at bedtime Oral Once a day Active Spironolactone 25 MG Oral for 90 Active SOCIAL HISTORY Tobacco [...] support system with her uncle and brother. 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 She denies tobacco, alcohol, and drug use. The patient is disabled and last worked in 1986. 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 She reports having a good support system with her uncle and brother The patient is disabled and last worked in 1986. 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 She reports having a good support system with her uncle and brother The patient is disabled and last worked in 1986. 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 Preventative Maintenance Technician The patient is disabled and last worked [...] (F40.231) Active confirmed Fear of medical treatment (166910699) Problem Brachial plexus disorders (G54.0) Active confirmed Brachial p cassandra disorder (3689793) Problem Chronic pain syndrome (G89.4) Active confirmed Chronic ji n syndrome (986030821) Problem Unilateral primary osteoarthritis, left knee (M17.12) Active confirmed Osteoarth ritis of knee (650078126) Problem Unspecified osteoarthritis, unspecified site (M19.90) Active confirmed Osteoarthritis (588846960) Problem Pain in right shoulder (M25.511) Active confirmed Pain of r ight shoulder region (finding) (9484087176) Problem Pain in left shoulder (M25.512) Active confirmed Shoulder joint pain (008274892) Problem Sacroiliitis, not elsewhere classified (M46.1) Active confirmed Solitary sacroiliitis (344872957) Problem Spondylosis without myelopathy or radiculopathy, lumbar region (M47.816) Active confirmed Lumbosacral spondylosis without myelopathy (48606429) Problem Spondylosis without myelopathy or radiculopathy, lumbosacral region (M47.817) Active confirmed Lumbosacral spondylosis without myelopathy (disorder) (31480437) Problem Intervertebral disc disorders with radiculopathy, lumbar 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) Active confirmed Radiculopathy due to lumbar intervertebral disc disorder (261239351905106 ) L4-5 HNP Problem Other intervertebral disc degeneration, 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 confirmed Degeneration of lumbar intervertebral disc (87481430) Problem Radiculopathy, lumbar region (M54.16) Active confirmed Lumbar radiculopathy (601823128) Problem Radiculopathy, lumbosacral region (M54.17) Active confirmed Lumbosacral radiculopathy (1048383) Problem Postlaminectomy syndrome, not elsewhere classified (M96.1) Active confirmed Post-lami nectomy syndrome (62335940) Problem Osseous stenosis of neural canal 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) Active confirmed Spinal stenosis of lumbar region (73351745) Problem Intervertebral disc stenosis of neural canal of lumbar region (M99.53) Active confirmed Spinal stenosis of lumbar region (53388814) 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 (Z79.01) Active confirmed Long-term current use of anticoagulant (731847717) Problem ad terminal 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 operator (current) use of opiate analgesic (Z79.891) Active confirmed High risk drug monitoring status (090466132) Problem Myalgia, other site (M79.18) Active confirmed Muscle pain (16837854) VITAL SIGNS Heart Rate 84 /min 09/06/2024 Respiratory Rate 18 /min 09/06/2024 Blood pressure diastolic 95 mm Hg 09/06/2024 Height 60 in 09/06/2024 Blood pressure systolic 182 mm Hg 09/06/2024 Weight 135 lbs 09/06/2024 BMI 26.36 kg/m2 09/06/2024 Encounters Encounter Location Date Provider Diagnosis [facility] [address] [facility] [place] [address] 10/24/2023 Feng Stynowick Radiculopathy, lumba r region M54.16 [facility] [address] [facility] [place] [address] 10/26/2023 Feng Stynowick Radiculopathy, lumba r region M54.16 [facility] [address] [facility] [place] [address] 12/19/2023 Feng Stynowick Radiculopathy, lumba r region M54.16 [facility] [address] [facility] [place] [address] 01/29/2024 Feng Stynowick Radiculopathy, lumba r region M54.16 [facility] [address] [facility] [place] [address] 02/19/2024 Feng Stynowick Radiculopathy, lumba r region M54.16 [facility] [address] [facility] [place] [address] 03/18/2024 Feng Stynowick [facility] [address] [facility] [place] [address] 03/27/2024 Feng Stynowick [facility] [address] [facility] [place] [address] 04/26/2024 Feng Stynowick Radiculopathy, lumba r region M54.16 [facility] [address] [facility] [place] [address] 07/08/2024 Feng Stynowick Radiculopathy, lumba r region M54.16 [facility] [address] [facility] [place] [address] 07/30/2024 Feng Stynowick Radiculopathy, lumba r region M54.16 [facility] [address] [facility] [place] [address] 05/10/2024 Feng Stynowick Sacroiliitis, not elsewhere classified M46.1 [facility] [address] [place] [address] [place] [address] 02/16/2024 Feng Stynowick Radiculopathy, lumba r region M54.16 ; Intervertebral disc disorders with radiculopathy, lumbar region M51.16 and Osseous stenosis of neural canal of lumbar region M99.33 [facility] [address] [place] [address] [place] [address] 07/08/2024 Feng Stynowick Radiculopathy, lumba r region M54.16 ; Radiculopathy, lumbosacral region M54.17 and Osseous stenosis of neural canal of lumbar region M99.33 [facility] [address] [place] [address] [place] [address] 03/26/2024 Feng Stynowick Spondylosis without myelopathy or radiculopathy, lumbar region M47.816 and Spondylosis without myelopathy or radiculopathy, lumbosacral region M47.817 [facility] [address] [place] [address] [place] [address] 09/06/2024 Feng Stynowick Sacroiliitis, not elsewhere classified M46.1 [facility] [address] [place] [address] [place] [address] 01/02/2024 Feng Stynowick Sacroiliitis, not elsewhere classified M46.1 [facility] [address] [place] [address] [place] [address] 11/06/2023 Feng Stynowick Radiculopathy, lumba r region M54.16 ; Intervertebral disc disorders with radiculopathy, lumbar region M51.16 and Osseous stenosis of neural canal of lumbar region M99.33 [facility] [address] [place] [address] [place] [address] 09/27/2023 Feng Stynowick Radiculopathy, lumba r region M54.16 ; Spondylosis without myelopathy or radiculopathy, lumbar region M47.816 ; Sacroiliitis, not elsewhere classified M46.1 ; Postlaminectomy syndrome, not elsewhere classified M96.1 ; Other intervertebral disc degeneration, lumbar region M51.36 ; Osseous stenosis of neural canal of lumbar region M99.33 ; 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 and jail (current) use of opiate analgesic Z79.891 [facility] [address] [place] [address] 10/04/2023 Feng Stynowick [facility] [address] [place] [address] 10/30/2023 Feng Stynowick Radiculopathy, lumba r region M54.16 ; Spondylosis without myelopathy or radiculopathy, lumbar region M47.816 ; Sacroiliitis, not elsewhere classified M46.1 ; Postlaminectomy syndrome, not elsewhere classified M96.1 ; Other intervertebral disc degeneration, lumbar region M51.36 ; Osseous stenosis of neural canal of lumbar region M99.33 ; 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 and ad terminal makeup operator (current) use of opiate analgesic Z79.891 [facility] [address] [place] [address] 10/24/2023 Feng Stynowick Radiculopathy, lumba r region M54.16 ; Spondylosis without myelopathy or radiculopathy, lumbar region M47.816 ; Sacroiliitis, not elsewhere classified M46.1 ; Postlaminectomy syndrome, not elsewhere classified M96.1 ; Other intervertebral disc degeneration, lumbar region M51.36 ; Osseous stenosis of neural canal of lumbar region M99.33 ; 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 and jail (current) use of opiate analgesic Z79.891 [facility] [address] [place] [address] 11/29/2023 Feng Stynowick Radiculopathy, lumba r region M54.16 ; Spondylosis without myelopathy or radiculopathy, lumbar region M47.816 ; Sacroiliitis, not elsewhere classified M46.1 ; Postlaminectomy syndrome, not elsewhere classified M96.1 ; Other intervertebral disc degeneration, lumbar region M51.36 ; Osseous stenosis of neural canal of lumbar region M99.33 ; 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 and ad terminal makeup operator (current) use of opiate analgesic Z79.891 [facility] [address] [place] [address] 12/27/2023 Feng Stynowick Radiculopathy, lumba r region M54.16 ; Sacroiliitis, not elsewhere classified M46.1 ; Spondylosis without myelopathy or radiculopathy, lumbar region M47.816 ; Postlaminectomy syndrome, not elsewhere classified M96.1 ; Other intervertebral disc degeneration, lumbar region M51.36 ; Osseous stenosis of neural canal of lumbar region M99.33 ; 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 and jail (current) use of opiate analgesic Z79.891 [facility] [address] [place] [address] 01/25/2024 Feng Stynowick Radiculopathy, lumba r region M54.16 ; Sacroiliitis, not elsewhere classified M46.1 ; Spondylosis without myelopathy or radiculopathy, lumbar region M47.816 ; Postlaminectomy syndrome, not elsewhere classified M96.1 ; Other intervertebral disc degeneration, lumbar region M51.36 ; Osseous stenosis of neural canal of lumbar region M99.33 ; 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 and ad terminal makeup operator (current) use of opiate analgesic Z79.891 [facility] [address] [place] [address] 01/29/2024 Feng Stynowick Radiculopathy, lumba r region M54.16 ; Sacroiliitis, not elsewhere classified M46.1 ; Spondylosis without myelopathy or radiculopathy, lumbar region M47.816 ; Postlaminectomy syndrome, not elsewhere classified M96.1 ; Other intervertebral disc degeneration, lumbar region M51.36 ; Osseous stenosis of neural canal of lumbar region M99.33 ; 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 and ad terminal makeup operator (current) use of opiate analgesic Z79.891 [facility] [address] [place] [address] 02/06/2024 Feng Stynowick Radiculopathy, lumba r region M54.16 ; Sacroiliitis, not elsewhere classified M46.1 ; Spondylosis without myelopathy or radiculopathy, lumbar region M47.816 ; Postlaminectomy syndrome, not elsewhere classified M96.1 ; Other intervertebral disc degeneration, lumbar region M51.36 ; Osseous stenosis of neural canal of lumbar region M99.33 ; 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 and ad terminal makeup operator (current) use of opiate analgesic Z79.891 [facility] [address] [place] [address] 03/06/2024 Feng Stwinifredowick Radiculopathy, lumba r region M54.16 ; Spondylosis without myelopathy or radiculopathy, lumbar region M47.816 ; Sacroiliitis, not elsewhere classified M46.1 ; Postlaminectomy syndrome, not elsewhere classified M96.1 ; Other intervertebral disc degeneration, lumbar region M51.36 ; Osseous stenosis of neural canal of lumbar region M99.33 ; 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 and ad terminal makeup operator (current) use of opiate analgesic Z79.891 [facility] [address] [place] [address] 05/03/2024 Feng Stynowick Spondylosis without myelopathy or radiculopathy, lumbar region M47.816 ; Sacroiliitis, not elsewhere classified M46.1 ; Radiculopathy, lumbar region M54.16 ; Postlaminectomy syndrome, not elsewhere classified M96.1 ; Other intervertebral disc degeneration, lumbar region M51.36 ; Osseous stenosis of neural canal of lumbar region M99.33 ; 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 and ad terminal makeup operator (current) use of opiate analgesic Z79.891 [facility] [address] [place] [address] 04/05/2024 Feng Stynowick Radiculopathy, lumba r region M54.16 ; Spondylosis without myelopathy or radiculopathy, lumbar region M47.816 ; Sacroiliitis, not elsewhere classified M46.1 ; Postlaminectomy syndrome, not elsewhere classified M96.1 ; Other intervertebral disc degeneration, lumbar region M51.36 ; Osseous stenosis of neural canal of lumbar region M99.33 ; 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 and ad terminal makeup operator (current) use of opiate analgesic Z79.891 [facility] [address] [place] [address] 06/03/2024 Feng Stynowick Sacroiliitis, not elsewhere classified M46.1 ; Radiculopathy, lumbar region M54.16 ; Spondylosis without myelopathy or radiculopathy, lumbar region M47.816 ; Postlaminectomy syndrome, not elsewhere classified M96.1 ; Other intervertebral disc degeneration, lumbar region M51.36 ; Osseous stenosis of neural canal of lumbar region M99.33 ; 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 and jail (current) use of opiate analgesic Z79.891 [facility] [address] [place] [address] 07/01/2024 Feng Stynowick Sacroiliitis, not elsewhere classified M46.1 ; Radiculopathy, lumbar region M54.16 ; Spondylosis without myelopathy or radiculopathy, lumbar region M47.816 ; Postlaminectomy syndrome, not elsewhere classified M96.1 and jail (current) use of opiate analgesic Z79.891 [facility] [address] [place] [address] 07/31/2024 Fegn Stynowick Radiculopathy, lumba r region M54.16 ; Radiculopathy, lumbosacral region M54.17 ; Osseous stenosis of neural canal of lumbar region M99.33 ; Sacroiliitis, not elsewhere classified M46.1 and jail (current) use of opiate analgesic Z79.891 [facility] [address] [place] [address] 08/28/2024 Feng Stynowick Radiculopathy, lumba r region M54.16 ; Sacroiliitis, not elsewhere classified M46.1 ; Radiculopathy, lumbosacral region M54.17 ; Osseous stenosis of neural canal of lumbar region M99.33 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 The [facility] PDMP were reviewed and were appropriate 09/27/2023 [...] to fully comply with the above. The [facility] PDMP were reviewed and were appropriate 10/24/2023 [...] comply with the above. The [place] PDMP were reviewed and were appropriate 10/30/2023 [...] to fully comply with the above. The [facility] PDMP were reviewed and were appropriate 11/29/2023 [...] comply with the above. The [place] PDMP were reviewed and were appropriate 12/27/2023 [...] to fully comply with the above. The [facility] PDMP were reviewed and were appropriate 01/29/2024 [...] to fully comply with the above. The [facility] PDMP were reviewed and were appropriate 01/29/2024 [...] comply with the above. The [place] PDMP were reviewed and were appropriate 02/06/2024 [...] comply with the above. The [place] PDMP were reviewed and were appropriate 03/06/2024 [...] comply with the above. The [place] PDMP were reviewed and were appropriate 04/05/2024 [...] to fully comply with the above. The [facility] PDMP were reviewed and were appropriate 07/01/2024 [...] comply with the above. The [place] PDMP were reviewed and were appropriate 07/31/2024 [...] comply with the above. The [place] PDMP were reviewed and were appropriate 07/08/2024 [...] is agreeable to proceeding at this time. 09/06/2024 Sacroiliitis, not elsewhere classified (ICD-10 - M46.1) 07/08/2024 Osseous stenosis of neural canal of [...] to fully comply with the above. The [facility] PDMP were reviewed and were appropriate 07/01/2024 [...] to fully comply with the above. The [facility] PDMP were reviewed and were appropriate 04/05/2024 [...] of lumbar region (ICD-10 - M99.33) 07/31/2024 jail (current) use of opiate analgesic (ICD-10 - Z79.891) 08/28/2024 jail (current) use of opiate analgesic (ICD-10 - 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 01/29/2024 jail (current) use of opiate analgesic (ICD-10 - Z79.891) 01/25/2024 jail (current) use of opiate analgesic (ICD-10 - Z79.891) 10/24/2023 jail (current) use of opiate analgesic (ICD-10 - Z79.891) 09/27/2023 Other The above-named patient was evaluated [...] Lumbar Spine with and without Cont rast (42230) 04/25/2022 MRI : Lumbar Spine with and without Cont rast ([id number]) 02/01/2022 XRAY right shoulder 09/09/2020 [facility] 01/03/2022 [facility] 03/29/2022 [facility] 09/16/2022 [facility] 06/01/2023 [facility] 08/28/2023 [facility] 11/29/2023 [facility] 03/06/2024 [facility] 05/31/2024 [facility] 08/27/2024 Next Appt Details Provider Name:Feng Geovani bean, 09/27/2024 10:00:00 AM, [address] [place], [address], Insurance Providers Payer Name Payer Address Payer Phone Subscriber Number Group Number Insured Name Patient Relationship to Insured Coverage Start Date Coverage End Date [employer] Claims [address] [address] [place] [address] [id number] MIKE PADGETT Self - patient is the insured 8 MEDICAL (GENERAL) HISTORY Medical History History ICD Code Hypertension Stomach Ulcers Depression Insomnia GERD Anemia Asthma Migraine Surgical History Surgery Date(Month/Year) Pain Pump Removal 2011 Multiple Lumbar Surgeries
== END 2024-09-17 08:42 | disposition home or self-care (01) ==
PROVIDERS: PCP Family Medicine; Visit Provider Internal Medicine Hematology & Oncology
DX: C85.97 Non-Hodgkin lymphoma, unspecified, spleen (principal); R16.1 Splenomegaly, not elsewhere classified; N20.0 Calculus of kidney; R59.0 Localized enlarged lymph nodes; N26.1 Atrophy of kidney (terminal)
CPT/HCPCS: 78815; A9552

== ENCOUNTER 2024-09-19 14:02 | Outpatient (CLI) | payer MEDICARE, SELFPAY ==
--- NOTE | ~2024-09-19 | MM_ITS ---
EXAMINATION: MM screening santino BI w libby HISTORY: Screening TECHNIQUE: Craniocaudal and mediolateral oblique 3-D tomosynthesis images were obtained and synthetic 2-D images were generated. CAD analysis was submitted and interpreted. COMPARISON: No prior mammogram is available for comparison at this institution. BREAST PARENCHYMAL COMPOSITION: Dense: The breasts are heterogeneously dense, which may obscure small masses FINDINGS: There is no evidence of suspicious mass, calcification, or architectural distortion to sugg est malignancy in either breast. There has been no suspicious interval change. IMPRESSION: 1. No mammographic evidence of malignancy. 2. Recommend routine screening mammography in one year. BI-RADS Category 1: Negative Reviewed, dictated and finalized at location B.
--- OUTSIDE RECORDS SUMMARY | 2024-09-19 14:07 | XMS_ITS ---
Author Organization [facility] Address [address] [place] [address] VIDHYA Johnson [address] Care Team Providers Care Card Room Manager Name Role Phone Anabella CARMEN, Joy Primary Care Provider Unavailable Feng Hendrickson Unavailable [phone] ALLERGIES Allergen (clinical drug ingredient) Drug/Non Drug [...] and last worked in 1986 in a [employer]. 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 She [...] Date Provider Diagnosis [facility] [address] [facility] [address] 08/28/2024 Feng Hendrickson Radiculopathy, lumbar region M54.16 ; Sacroiliitis, not elsewhere classified M46.1 ; Radiculopathy, lumbosacral region M54.17 ; Osseous stenosis of neural canal of lumbar region M99.33 and correction (current) use of opiate analgesic Z79.891 ASSESSMENTS [...] to fully comply with the above. 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 The [facility] [place] PDMP were reviewed and were appropriate Sacroiliitis, [...] is agreeable to proceeding at this time. correction (current) use of o piate analgesic The [...] Name:Feng Geovani bean, 09/27/2024 10:00:00 AM, [address] [place], [address], Progress Notes * Examination Category [...] axial low back pain. Gonzalo's, [place]'s and [place]'s tests are positive bilaterally. There is severe [...]
--- OUTSIDE RECORDS SUMMARY | 2024-09-19 14:07 | XMS_ITS ---
Author Organization [facility] Address [address] [place] [address] VIDHYA Johnson [address] Care Team Providers Care Shipping And Receiving Associate Name Role Phone Anabella CARMEN, Joy Primary Care Provider Unavailable Feng Hendrickson Unavailable [phone] ALLERGIES Allergen (clinical drug ingredient) Drug/Non Drug [...] Date Provider Diagnosis [facility] [address] [facility] [place] [address] 07/31/2024 Feng Hendrickson Radiculopathy, lumbar region M54.16 ; Radiculopathy, lumbosacral region M54.17 ; Osseous stenosis of neural canal of lumbar region M99.33 ; Sacroiliitis, not elsewhere classified M46.1 and 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 The [place] and [place] PDMP were reviewed and were appropriate 07/31/2024 [...] comply with the above. The [place] PDMP were reviewed and were appropriate Other [...] Provider Name:Feng Geovani bean, 09/27/2024 10:00:00 AM, [address] [place], [address], Progress Notes * Examination Category Sub-Category Detail [...] axial low back pain. Gonzalo's, Gaenslen's and [place]'s tests are positive bilaterally. There is severe [...]
--- OUTSIDE RECORDS SUMMARY | 2024-09-19 14:07 | XMS_ITS | Clinical Summary ---
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
--- OUTSIDE RECORDS SUMMARY | 2024-09-19 14:07 | XMS_ITS | Clinical Summary ---
Author Organization [facility] [facility] Address [address] [place] [address] Care Team Providers Care Senior Stack Engineer Name Role Phone Unavailable Primary Care Provider [...] 08/26/2024 Active fluticasone propionate (FLONASE) 50 mcg/spray [place], Suspension nasal inhaler 2 times daily. Active [...] Type Department Care Team Description 09/13/2024 Abstract [facility] - [address] [place] [address] Lazaro Jefferson MD 09/13/2024 Abstract [facility] - [place] [address] [place] [address] Conrado Edwards CMA 09/11/2024 Orders Only [facility] [address] [place] [address] Lazaro Jefferson MD 09/10/2024 External Device Data [facility] ABSTRACTION Provider, Abstract 09/10/2024 External Device Data [facility] ABSTRACTION Provider, Abstract 09/10/2024 External Device Data [facility] ABSTRACTION Provider, Abstract 09/09/2024 Abstract [facility] - [place] [address] [place] [address] Lazaro Jefferson MD 09/09/2024 Orders Only [facility] - [place] [address] [place] [address] Lazaro Jefferson MD 09/06/2024 Orders Only [facility] - [place] [place] [address] Lazaro Jefferson MD 09/05/2024 1:30 PM CDT Office Visit [facility] - [place] [place] [address] Lazaro Jefferson MD Non-Hodgkin's lymphoma of spleen, unspecified non-Hodgkin lymphoma type (CMS/HCC) (Primary Dx); CML (chronic myelocytic leukemia) (CMS/HCC) 08/12/2024 Abstract [facility] - [place] [address] [facility] [address] [place] [address] Lazaro Jefferson MD from Last [...] on file Legal Sex Female 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 Gender Identity Not on file [...] Description 09/24/2024 2:15 PM CDT Office Visit [facility] - [place] [place] [address] Lazaro Jefferson MD [address] [facility] [address] [place] [address] Health Maintenance Due Date Last [...] T d or Tdap) 12/05/2023 12/04/2013, 06/09/2005 INFLUENZA VACCINE (#1) 2024 7, 02/09/2016, 02/04/2015, [...] DIFFERENTIAL (09/05/2024 5:06 PM CDT) Blood Result [facility] us Lazaro Jefferson MD HEMATOLOGY ORDERABLES Final Res ult * COMPREHENSIVE METABOLIC PANEL (09/05/2024 2:32 PM CDT) Blood us Lazaro Jefferson MD CHEMISTRY ORDERABLES Final Resu lt * IGG (09/05/2024 2:17 PM CDT) Blood Result [facility] us Lazaro Jefferson MD CHEMISTRY ORDERABLES Final Resu lt * VITAMIN D 25 HYDROXY (09/05/2024 2:10 PM CDT) Blood Result [facility] us Lazaro Jefferson MD CHEMISTRY ORDERABLES Final Resu lt * PROTEIN ELECTROPHORESIS, CSF (09/05/2024 7:44 AM CDT) Cerebrospinal fluid CEREBROSPINAL FLUID / Unknown Result [facility] us Lazaro Jefferson MD BODY FLUIDS AND STOOLS Final Re sult from Last 3 Months Insurance [employer]NA [place] CHOICE [facility]
--- OUTSIDE RECORDS SUMMARY | 2024-09-19 14:07 | XMS_ITS ---
Author Organization [facility] Address [address] [place] [address] VIDHYA Johnson [address] Care Team Providers Care Information Technology Account Manager Name Role Phone Anabella CARMEN, Joy Primary Care Provider Unavailable Feng Hendrickson Unavailable [phone] ALLERGIES Allergen (clinical drug ingredient) Drug/Non Drug [...] Date Provider Diagnosis [facility] [address] [facility] [place] [address] 09/06/2024 Feng Hendrickson Sacroiliitis, not elsewhere classified M46.1 ASSESSMENTS Encounter Date Diagnosis Assessment Notes Treatment Notes Treatment Clinical Notes Section Notes 09/06/2024 Sacroiliitis, not elsewhere classified (ICD-10 - M46.1) PLAN OF TREATMENT Next Appt Details Follow Up: F/U 09/27/24, Lm n: Provider Name:Feng bean, 09/27/2024 10:00:00 AM, [address] [place] [address], [address], Procedure Notes * Category Sub-Category Detail Notes [...] discharged home in good condition 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 X-ray time: 10 seconds Progress Notes [...] axial low back pain. Gonzalo's, Gaenslen's and [place]'s tests are positive bilaterally. There is severe [...] and Follow-up: Follow-up Plan documen gale:: Yes [facility] Quality 2020: MIPS Documented:: Compliant
--- OUTSIDE RECORDS SUMMARY | 2024-09-19 14:07 | XMS_ITS | Clinical Summary ---
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 Gender Identity Not on file Sexual Orientation Not on file Last Filed Vital Signs Vital Sign Reading Time Taken Comments Blood Pressure 120/64 01/04/2017 12:58 PM MARKETING ACCOUNT EXECUTIVE Pulse 65 01/04/2017 12:58 PM MARKETING ACCOUNT EXECUTIVE Temperature 36.5 C (97.7 F) 01/04/2017 12:58 PM MARKETING ACCOUNT EXECUTIVE Respiratory Rate 18 01/04/2017 12:58 PM MARKETING ACCOUNT EXECUTIVE Oxygen Saturation 97% 01/04/2017 12:58 PM MARKETING ACCOUNT EXECUTIVE Inhaled Oxygen Concentration - - Weight 62.6 kg (138 lb) 01/04/2017 12:58 PM MARKETING ACCOUNT EXECUTIVE Height 152.4 cm (5') 01/04/2017 12:58 PM MARKETING ACCOUNT EXECUTIVE Body Mass Index 26.95 01/04/2017 12:58 PM MARKETING ACCOUNT EXECUTIVE Plan of Treatment Health Maintenance Due Date [...] signed by: Nathan Rojas M.D. bs/suzie:05/15/2017 14:18:37 Automobile Technician: Cher CARPENTER(Tigre)(Aurelia), [facility] letter sent: Additional Imaging Reading location: [facility] BI-RADS: 0 Additional Imaging [...] signed by: Nathan Rojas M.D. bs/suzie:05/15/2017 14:18:37 Automobile Technician: Cher CARPENTER(R)(M), [facility] letter sent: Additional Imaging Reading location: [facility] BI-RADS: 0 Additional Imaging Evaluation Needed us [facility] Mario Britt MD IMG MAMMO ORDERABLES Kena l Result from Last 3 Months or Most Recently Relevant to Health Maintenance Insurance MEDICARE C HUMANA
--- OUTSIDE RECORDS SUMMARY | 2024-09-19 14:08 | XMS_ITS | Patient Health Record ---
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 Name Role Phone Anabella CARMEN, Joy Primary Care Provider Unavailable Feng Hendrickson Unavailable [phone] ALLERGIES Allergen (clinical drug ingredient) Drug/Non Drug Allergy documented on EMR Reaction Allergy Type Onset Date Status aripiprazole Aripiprazole nausea and vomiting Drug Allergy Active clindamycin Clindamycin diarrhea Drug Allergy Act lucian fentanyl Fentanyl nausea Drug Allergy Active morphine Morphine rash/itching Drug Allergy Acti ve RESULTS Component Value Reference Range Notes [facility] Results (Not yet reviewed by provider) Interpretation: Performing Lab:[id number] [facility], [address] [address] [facility] [address] Angelika Garcia MD Notes/Report: Acetyl fentanyl: Fentanyl [...] 100 ng/mL Tramadol Quantification negative 100 ng/mL O-qzfzkoayw-tmndkxbm Quantification negative 100 n g/mL K-Zcazxduhi-Bccwhnlc Quantification negative 100 n g/mL Alpha-Hydroxyalprazolam Quantification negative 20 ng/mL 7-Fnnxf-Ckkltoemmn Quantification negative 20 ng/m L Lorazepam Quantification [...] Mitragynine (Kratom alkaloid) Quantification negative 1 ng/mL 0-UQ-Uljydnbmxkv (Kratom alk aloid) Quantification negative 1 ng/mL Ethyl Glucuronide Quantification positive-814.348 500 ng/mL Ethyl Sulfate Quantification negative 500 ng/mL [facility] Results (Not yet reviewed by provider) Interpretation: Performing Lab:[id number] [place], [address] [address] [facility] [address] Angelika Garcia MD Notes/Report: Codeine negative 1 ng/mL Morphine negative 1 ng/mL Hydrocodone positive-120.252 1 ng/mL Norhydrocodone Quantification positive-8.450 2 ng/mL Hydromorphone negative 1 ng/mL Oxycodone negative 1 ng/mL Noroxycodone Quantification negative 2 ng/mL Oxymorphone negative 1 ng/mL Fentanyl Quantification negative 0.2 ng/mL Norfentanyl Quantification negative 1 ng/mL Methadone negative 2 ng/mL EDDP (Methadone metabolite) negative 2 ng/mL Tramadol Quantification negative 5 ng/mL M-Nzpwbwjnk-Pkrkbree Quantification negative 5 ng/ mL Alprazolam negative [...] 6-WALTER (Heroin metabolite) Quantification negative 1 ng/mL [facility] Results (Not yet reviewed by provider) Interpretation: Performing Lab:[id number] [facility], [address] [address] [facility] [address] Angelika Garcia MD Notes/Report: Acetyl fentanyl: Fentanyl [...] 100 ng/mL Tramadol Quantification negative 100 ng/mL E-bxrkbnmcp-ephvvkie Quantification negative 100 n g/mL N-Cjibrhelt-Obthhnsq Quantification negative 100 n g/mL Alpha-Hydroxyalprazolam Quantification negative 20 ng/mL 8-Bgeky-Rwlxtnayix Quantification negative 20 ng/m L Lorazepam Quantification negative 40 ng/mL Nordiazepam Quantification negative 40 ng/mL Temazepam Quantification negative 50 ng/mL Oxazepam Quantification negative 40 ng/mL Amphetamine Quantification positive-> 63765 100 ng/mL Methamphetamine Quantification negative 100 ng/mL [...] Mitragynine (Kratom alkaloid) Quantification negative 1 ng/mL 9-JI-Cxtcwxlejdy (Kratom alk aloid) Quantification negative 1 ng/mL Ethyl Glucuronide Quantification negative 500 ng/m L Ethyl Sulfate Quantification negative 500 ng/[facility] Results (Not yet reviewed by provider) Interpretation: Performing [facility][id number] [facility] [address] [address] [facility] [address] Angelika Garcia MD Notes/Report: Acetyl fentanyl: Fentanyl [...] 100 ng/mL Tramadol Quantification negative 100 ng/mL C-abswauzaa-vsbqecxy Quantification negative 100 n g/mL B-Ttkcbaeig-Gyhjdsqg Quantification negative 100 n g/mL Alpha-Hydroxyalprazolam Quantification negative 20 ng/mL 8-Tnlfa-Vsjfdartpn Quantification negative 20 ng/m L Lorazepam Quantification [...] Mitragynine (Kratom alkaloid) Quantification negative 1 ng/mL 8-DC-Voaezkxibye (Kratom alk aloid) Quantification negative 1 ng/mL [...] support system with her uncle and brother. 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 Field Evidence Technician The patient is disabled and last [...] (F40.231) Active confirmed Fear of medical treatment (619811529) Problem Brachial plexus disorders (G54.0) Active confirmed Brachial p cassandra disorder (8681630) Problem Chronic pain syndrome (G89.4) Active confirmed Chronic ji n syndrome (526977402) Problem Unilateral primary osteoarthritis, left knee (M17.12) Active confirmed Osteoarth ritis of knee (577492108) Problem Unspecified osteoarthritis, unspecified site (M19.90) Active confirmed Osteoarthritis (329123492) Problem Pain in right shoulder (M25.511) Active confirmed Pain of r ight shoulder region (finding) (1767225070) Problem Pain in left shoulder (M25.512) Active confirmed Shoulder joint pain (848302080) Problem Sacroiliitis, not elsewhere classified (M46.1) Active confirmed Solitary sacroiliitis (623136541) Problem Spondylosis without myelopathy or radiculopathy, lumbar region (M47.816) Active confirmed Lumbosacral spondylosis without myelopathy (14389677) Problem Spondylosis without myelopathy or radiculopathy, lumbosacral region (M47.817) Active confirmed Lumbosacral spondylosis without myelopathy (disorder) (40492167) Problem Intervertebral disc disorders with radiculopathy, lumbar 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) Active confirmed Radiculopathy due to lumbar intervertebral disc disorder (510276712191966 ) L4-5 HNP Problem Other intervertebral disc degeneration, 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 confirmed Degeneration of lumbar intervertebral disc (73799634) Problem Radiculopathy, lumbar region (M54.16) Active confirmed Lumbar radiculopathy (566164569) Problem Radiculopathy, lumbosacral region (M54.17) Active confirmed Lumbosacral radiculopathy (3260334) Problem Postlaminectomy syndrome, not elsewhere classified (M96.1) Active confirmed Post-lami nectomy syndrome (40421479) Problem Osseous stenosis of neural canal 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) Active confirmed Spinal stenosis of lumbar region (43338335) Problem Intervertebral disc stenosis of neural canal of lumbar region (M99.53) Active confirmed Spinal stenosis of lumbar region (80777683) Problem 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 controller (current) use of anticoagulants (Z79.01) Active confirmed Long-term current use of anticoagulant (002421822) Problem 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 controller (current) use of opiate analgesic (Z79.891) Active confirmed High risk drug monitoring status (921348647) Problem Myalgia, other site (M79.18) Active confirmed Muscle pain (59906352) VITAL SIGNS Heart Rate 84 /min 09/06/2024 Respiratory Rate 18 /min 09/06/2024 Blood pressure diastolic 95 mm Hg 09/06/2024 Height 60 in 09/06/2024 Blood pressure systolic 182 mm Hg 09/06/2024 Weight 135 lbs 09/06/2024 BMI 26.36 kg/m2 09/06/2024 Encounters Encounter Location Date Provider Diagnosis [facility] [address] [place] [address] 09/27/2023 Feng Stynowick Radiculopathy, lumba r region M54.16 ; Spondylosis without myelopathy or radiculopathy, lumbar region M47.816 ; Sacroiliitis, not elsewhere classified M46.1 ; Postlaminectomy syndrome, not elsewhere classified M96.1 ; Other intervertebral disc degeneration, lumbar region M51.36 ; Osseous stenosis of neural canal of lumbar region M99.33 ; 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 and MCC (current) use of opiate analgesic Z79.891 [facility] [address] [place] [address] 10/04/2023 Feng Stynowick [facility] [address] [place] [address] 10/24/2023 Feng Stynowick Radiculopathy, lumba r region M54.16 [facility] [address] [place] [address] 10/24/2023 Feng Stynowick Radiculopathy, lumba r region M54.16 ; Spondylosis without myelopathy or radiculopathy, lumbar region M47.816 ; Sacroiliitis, not elsewhere classified M46.1 ; Postlaminectomy syndrome, not elsewhere classified M96.1 ; Other intervertebral disc degeneration, lumbar region M51.36 ; Osseous stenosis of neural canal of lumbar region M99.33 ; 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 and MCC (current) use of opiate analgesic Z79.891 [facility] [address] [place] [address] 10/26/2023 Feng Stynowick Radiculopathy, lumba r region M54.16 [facility] [address] [place] [address] 10/30/2023 Feng Stynowick Radiculopathy, lumba r region M54.16 ; Spondylosis without myelopathy or radiculopathy, lumbar region M47.816 ; Sacroiliitis, not elsewhere classified M46.1 ; Postlaminectomy syndrome, not elsewhere classified M96.1 ; Other intervertebral disc degeneration, lumbar region M51.36 ; Osseous stenosis of neural canal of lumbar region M99.33 ; 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 and 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 controller (current) use of opiate analgesic Z79.891 [facility] [address] [place] [address] 11/06/2023 Feng Stynowick Radiculopathy, lumba r region M54.16 ; Intervertebral disc disorders with radiculopathy, lumbar region M51.16 and Osseous stenosis of neural canal of lumbar region M99.33 [facility] [address] [place] [address] 11/29/2023 Feng Stynowick Radiculopathy, lumba r region M54.16 ; Spondylosis without myelopathy or radiculopathy, lumbar region M47.816 ; Sacroiliitis, not elsewhere classified M46.1 ; Postlaminectomy syndrome, not elsewhere classified M96.1 ; Other intervertebral disc degeneration, lumbar region M51.36 ; Osseous stenosis of neural canal of lumbar region M99.33 ; 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 and MCC (current) use of opiate analgesic Z79.891 [facility] [address] [place] [address] 12/19/2023 Feng Stynowick Radiculopathy, lumba r region M54.16 [facility] [address] [place] [address] 12/27/2023 Feng Stynowick Radiculopathy, lumba r region M54.16 ; Sacroiliitis, not elsewhere classified M46.1 ; Spondylosis without myelopathy or radiculopathy, lumbar region M47.816 ; Postlaminectomy syndrome, not elsewhere classified M96.1 ; Other intervertebral disc degeneration, lumbar region M51.36 ; Osseous stenosis of neural canal of lumbar region M99.33 ; 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 and MCC (current) use of opiate analgesic Z79.891 [facility] [address] [place] [phone] 01/02/2024 Feng Stynowick Sacroiliitis, not elsewhere classified M46.1 [facility] [address] [place] [phone] 01/25/2024 Feng Stynowick Radiculopathy, lumba r region M54.16 ; Sacroiliitis, not elsewhere classified M46.1 ; Spondylosis without myelopathy or radiculopathy, lumbar region M47.816 ; Postlaminectomy syndrome, not elsewhere classified M96.1 ; Other intervertebral disc degeneration, lumbar region M51.36 ; Osseous stenosis of neural canal of lumbar region M99.33 ; 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 and MCC (current) use of opiate analgesic Z79.891 [facility] [address] [place] [address] 01/29/2024 Feng Stynowick Radiculopathy, lumba r region M54.16 ; Sacroiliitis, not elsewhere classified M46.1 ; Spondylosis without myelopathy or radiculopathy, lumbar region M47.816 ; Postlaminectomy syndrome, not elsewhere classified M96.1 ; Other intervertebral disc degeneration, lumbar region M51.36 ; Osseous stenosis of neural canal of lumbar region M99.33 ; 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 and MCC (current) use of opiate analgesic Z79.891 [facility] [address] [place] [address] 01/29/2024 Feng Stynowick Radiculopathy, lumba r region M54.16 [facility] [address] [place] [address] 02/06/2024 Feng Stynowick Radiculopathy, lumba r region M54.16 ; Sacroiliitis, not elsewhere classified M46.1 ; Spondylosis without myelopathy or radiculopathy, lumbar region M47.816 ; Postlaminectomy syndrome, not elsewhere classified M96.1 ; Other intervertebral disc degeneration, lumbar region M51.36 ; Osseous stenosis of neural canal of lumbar region M99.33 ; 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 and MCC (current) use of opiate analgesic Z79.891 [facility] [address] [place] [address] 02/16/2024 Feng Stynowick Radiculopathy, lumba r region M54.16 ; Intervertebral disc disorders with radiculopathy, lumbar region M51.16 and Osseous stenosis of neural canal of lumbar region M99.33 [facility] [address] [place] [address] 02/19/2024 Feng Stynowick Radiculopathy, lumba r region M54.16 [facility] [address] [place] [address] 03/06/2024 Feng Stynowick Radiculopathy, lumba r region M54.16 ; Spondylosis without myelopathy or radiculopathy, lumbar region M47.816 ; Sacroiliitis, not elsewhere classified M46.1 ; Postlaminectomy syndrome, not elsewhere classified M96.1 ; Other intervertebral disc degeneration, lumbar region M51.36 ; Osseous stenosis of neural canal of lumbar region M99.33 ; 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 and 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 controller (current) use of opiate analgesic Z79.891 [facility] [address] [place] [address] 03/18/2024 Feng Hendrickson [facility] [address] [place] [phone] 03/26/2024 Feng Hendrickson Spondylosis without myelopathy or radiculopathy, lumbar region M47.816 and Spondylosis without myelopathy or radiculopathy, lumbosacral region M47.817 [facility] [address] [place] [address] 03/27/2024 Feng Stynvikas [facility] [address] [place] [address] 04/05/2024 Feng Stynowick Radiculopathy, lumba r region M54.16 ; Spondylosis without myelopathy or radiculopathy, lumbar region M47.816 ; Sacroiliitis, not elsewhere classified M46.1 ; Postlaminectomy syndrome, not elsewhere classified M96.1 ; Other intervertebral disc degeneration, lumbar region M51.36 ; Osseous stenosis of neural canal of lumbar region M99.33 ; 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 and 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 controller (current) use of opiate analgesic Z79.891 [facility] [address] [place] [address] 04/26/2024 Feng Stynowick Radiculopathy, lumba r region M54.16 [facility] [address] [place] [phone] 05/03/2024 Feng Stynowick Spondylosis without myelopathy or radiculopathy, lumbar region M47.816 ; Sacroiliitis, not elsewhere classified M46.1 ; Radiculopathy, lumbar region M54.16 ; Postlaminectomy syndrome, not elsewhere classified M96.1 ; Other intervertebral disc degeneration, lumbar region M51.36 ; Osseous stenosis of neural canal of lumbar region M99.33 ; 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 and 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 controller (current) use of opiate analgesic Z79.891 [facility] [address] [place] [address] 05/10/2024 Feng Stynowick Sacroiliitis, not elsewhere classified M46.1 [facility] [address] [place] [address] 06/03/2024 Feng Stynowick Sacroiliitis, not elsewhere classified M46.1 ; Radiculopathy, lumbar region M54.16 ; Spondylosis without myelopathy or radiculopathy, lumbar region M47.816 ; Postlaminectomy syndrome, not elsewhere classified M96.1 ; Other intervertebral disc degeneration, lumbar region M51.36 ; Osseous stenosis of neural canal of lumbar region M99.33 ; 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 and 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 controller (current) use of opiate analgesic Z79.891 [facility] [address] [place] [address] 07/01/2024 Feng Stynowick Sacroiliitis, not elsewhere classified M46.1 ; Radiculopathy, lumbar region M54.16 ; Spondylosis without myelopathy or radiculopathy, lumbar region M47.816 ; Postlaminectomy syndrome, not elsewhere classified M96.1 and 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 controller (current) use of opiate analgesic Z79.891 [facility] [address] [facility] [place] [address] 07/08/2024 Feng Stynowick Radiculopathy, lumba r region M54.16 ; Radiculopathy, lumbosacral region M54.17 and Osseous stenosis of neural canal of lumbar region M99.33 [facility] [address] [facility] [place] [address] 07/08/2024 Feng Stynowick Radiculopathy, lumba r region M54.16 [facility] [address] [place] [phone] 07/30/2024 Feng Stynowick Radiculopathy, lumba r region M54.16 [facility] [address] [place] [phone] 07/31/2024 Feng Stynowick Radiculopathy, lumba r region M54.16 ; Radiculopathy, lumbosacral region M54.17 ; Osseous stenosis of neural canal of lumbar region M99.33 ; Sacroiliitis, not elsewhere classified M46.1 and 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 controller (current) use of opiate analgesic Z79.891 [facility] [address] [place] [phone] 08/28/2024 Feng Stynowick Radiculopathy, lumba r region M54.16 ; Sacroiliitis, not elsewhere classified M46.1 ; Radiculopathy, lumbosacral region M54.17 ; Osseous stenosis of neural canal of lumbar region M99.33 and MCC (current) use of opiate analgesic Z79.891 [facility] [address] [place] [phone] 09/06/2024 Feng Stynowick Sacroiliitis, not elsewhere classified M46.1 ASSESSMENTS Encounter Date Diagnosis Assessment Notes Treatment Notes Treatment Clinical Notes Section Notes 09/27/2023 Spondylosis without myelopathy or radiculopathy, lumbar [...] to fully comply with the above. [facility] PDMP were reviewed and were appropriate [...] to fully comply with the above. [place] and were appropriate 10/26/2023 [...] to fully comply with the above. [place] were reviewed and were appropriate 10/30/2023 [...] to fully comply with the above. [place] were reviewed and were appropriate 12/19/2023 [...] to fully comply with the above. [place] were reviewed and were appropriate 01/02/2024 [...] to fully comply with the above. [facility] PDMP were reviewed and were appropriate [...] to fully comply with the above. [facility] PDMP were reviewed and were appropriate [...] to fully comply with the above. [place] were reviewed and were appropriate 02/16/2024 [...] to fully comply with the above. [place] were reviewed and were appropriate 03/06/2024 [...] to fully comply with the above. [place] were reviewed and were appropriate 04/26/2024 [...] to fully comply with the above. [facility] PDMP were reviewed and were appropriate 07/01/2024 Sacroiliitis, not elsewhere classified (ICD-10 - M46.1) 07/08/2024 Radiculopathy, lumbar region (ICD-10 - M54.16) 07/08/2024 Radiculopathy, lumbosacral region (ICD-10 - M54.17) 07/08/2024 Radiculopathy, lumbar region (ICD-10 - M54.16) 07/30/2024 Radiculopathy, lumbar region (ICD-10 - M54.16) 07/31/2024 [...] to fully comply with the above. [facility] PDMP were reviewed and were appropriate 07/31/2024 Radiculopathy, lumbosacral region (ICD-10 - M54.17) 08/28/2024 [...] to proceeding at this time. 08/28/2024 Radiculopathy, lumbar region (ICD-10 - M54.16) [...] to fully comply with the above. [place] and were appropriate 09/06/2024 Sacroiliitis, not elsewhere classified (ICD-10 - M46.1) 08/28/2024 Radiculopathy, lumbosacral region (ICD-10 - M54.17) 07/31/2024 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) 07/08/2024 Osseous stenosis of neural canal of [...] to fully comply with the above. [place] were [place] and were appropriate 06/03/2024 [...] to fully comply with the above. [place] were reviewed and were appropriate 03/06/2024 [...] not elsewhere classified (ICD-10 - M46.1) 10/24/2023 Sacroiliitis, not elsewhere classified (ICD-10 - [...] of lumbar region (ICD-10 - M99.33) 08/28/2024 MCC (current) use of opiate analgesic (ICD-10 - 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 07/31/2024 MCC (current) use of opiate analgesic (ICD-10 - Z79.891) 07/01/2024 MCC (current) use of opiate analgesic (ICD-10 - [...] injections and transfusions (ICD-10 - F40.231) 09/27/2023 MCC (current) use of opiate analgesic (ICD-10 - Z79.891) 10/24/2023 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) 10/30/2023 MCC (current) use of opiate analgesic (ICD-10 - Z79.891) 12/27/2023 MCC (current) use of opiate analgesic (ICD-10 - Z79.891) 11/29/2023 MCC (current) use of opiate analgesic (ICD-10 - 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 01/29/2024 MCC (current) use of opiate analgesic (ICD-10 - Z79.891) 01/25/2024 MCC (current) use of opiate analgesic (ICD-10 - Z79.891) 10/24/2023 MCC (current) use of opiate analgesic (ICD-10 - [...] Lumbar Spine with and without Cont rast (03408) 04/25/2022 MRI : Lumbar Spine with and without Cont rast ([id number]) 02/01/2022 XRAY right shoulder 09/09/2020 [facility] 01/03/2022 [facility] 03/29/2022 [facility] 09/16/2022 [facility] 06/01/2023 [facility] 08/28/2023 [facility] 11/29/2023 [facility] 03/06/2024 [facility] 05/31/2024 [facility] 08/27/2024 Next Appt Details Provider Name:Feng Geovani bean, 09/27/2024 10:00:00 AM, [address] [place], [address], Insurance Providers Payer Name Payer Address Payer Phone Subscriber Number Group Number Insured Name Patient Relationship to Insured Coverage Start Date Coverage End Date [employer] Claims [address] [address] [place] [address] [id number] MIKE PADGETT Self - patient is the insured 8 MEDICAL (GENERAL) HISTORY Medical History History ICD Code Hypertension Stomach Ulcers Depression Insomnia GERD Anemia Asthma Migraine Surgical History Surgery Date(Month/Year) Pain Pump Removal 2011 Multiple Lumbar Surgeries
== END 2024-09-19 14:03 | disposition home or self-care (01) ==
LOC: ANHIMG 14:03
PROVIDERS: PCP Family Medicine; Visit Provider Family Medicine
DX: Z12.31 Encounter for screening mammogram for malignant neoplasm of breast (principal)
CPT/HCPCS: 77063; 77067

== ENCOUNTER 2024-10-08 13:48 | Outpatient (CLI) | payer MEDICARE, SELFPAY ==
--- OUTSIDE RECORDS SUMMARY | 2024-08-28 06:15 | XMS_ITS ---
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 Machine Name Role Phone Anabella CARMEN, Joy Primary Care Provider Unavailable Feng Hendrickson Unavailable [phone] ALLERGIES Allergen (clinical drug ingredient) Drug/Non Drug [...] Duration) Notes Start Date End Date Status Fluticasone Propionate 50 MCG/ACT 1 spray in each nostril Nasal Twice a day Active Lidocaine-Prilocaine 2.5-2.5 % as directed External Active amLODIPine Besylate 5 MG 1 tablet Oral Once a day Active ZyPREXA 5 MG 1 tablet Orally Once a day Active Losartan Potassium 25 MG 1 tablet Oral Once a day Active traZODone HCl 100 MG 1 tablet at bedtime Oral Once a day Active FLUoxetine HCl 40 MG 1 capsule Oral Once a day Active Vitamin D3 1000 UNIT 1 capsule Orally On day 09/25/2017 Active ProAir HFA 108 (90 Base) MCG/ACT 2 puffs as needed Inhalation every 6 hrs 09/25/2017 Active Omeprazole 20 MG 1 capsule 30 minutes before morning meal Oral Once a day Active Chlorthalidone 25 MG TAKE 1 TABLET BY MOUTH EVERY DAY Oral for 90 Active Irbesartan 150 MG TAKE 1 TABLET BY MOUTH EVERY DAY Oral for 90 Active Spironolactone 25 MG Oral for 90 Active Donepezil HCl 5 MG TAKE 1 TABLET BY MOUTH EVERYDAY AT BEDTIME Oral for 90 Active NIFEdipine ER Osmotic Release 30 MG 30 MG ORALLY DAILY Oral for 90 Active Albuterol Sulfate HFA 108 (90 Base) MCG/ACT Inhalation for 16 A ctive Prolia 60 MG/ML Subcutaneous for 180 Active Fluticasone-Salmeterol 250-50 MCG/ACT Inhalation for 30 Active tiZANidine HCl 4 MG 1 tablet as needed Oral 3 x day muscle spasm for 30 days 12/13/2019 Active Losartan Potassium-HCTZ 100-25 MG TAKE 1 TABLET BY MOUTH EVERY DAY Oral for 90 Active HYDROcodone-Acetaminoph en 10-325 MG 1 tablet Orally every 4 to 6 hrs as needed for severe pain (max 5x/day) for 30 days MAY FILL 08/29/24 08/28/2024 Active hydrOXYzine HCl 25 MG TAKE 1 TABLET BY MOUTH THREE TIMES A DAY NEEDED FOR ANXIETY Oral for 10 Active Amphetamine-Dextroamphe tamine 20 MG TAKE 1 TABLET BY MOUTH EVERY DAY Oral for 30 Active Carvedilol 3.125 MG TAKE [...] TWICE A DAY Oral for 90 Active SOCIAL HISTORY Tobacco Use: Social History Observation Description Date Details (start date - stop date) Former Smoker NA - NA Sex Assigned At : Social History Observation Description Sex Assigned At Unknown Tobacco Use/Smoking Question Answer Notes Are you a former smoker How long has it been since you last smoked? > 10 years Section Notes: The patient is disabled and last worked in 1986 in a [employer]. 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 She is a former smoker. She last smoked in 1987. She denies alcohol or illicit drug abuse. 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 The [place] PDMP were reviewed and were appropriate 08/28/2024 Sacroiliitis, not elsewhere classified (ICD-10 - M46.1) [...] is agreeable to proceeding at this time. 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 08/28/2024 Other The above-named patient was evaluated in [...] day muscle spasm for 30 days 12/13/2019 HYDROcodone-Acetaminophen 10-325 MG 1 tablet Orally every 4 to 6 hrs as needed for severe pain (max 5x/day) for 30 days 08/28/2024 MAY FILL 08/29/24 Treatment Notes Assessment Notes Radiculopathy, lumbar region [...] to fully comply with the above. The [facility] [place] PDMP were reviewed and were appropriate Sacroiliitis, not elsewhere classified s chedule a [...] is agreeable to proceeding at this time. [facility] (current) use of o piate analgesic The [...] minutes Next Appt Details Follow Up: bilateral sacroil iac joint injection, Reason: Provider Name:Feng bean, 10/09/2024 11:00:00 AM, [address] [place] [address], [phone], Provider Name:Feng bean, 10/24/2024 10:30:00 AM, [address] [place] [address], [phone], Progress Notes * Examination Category Sub-Category Detail Notes Category Not es Examination/ Pre-Anesthesia Assessment General: The patient is alert and leeanna ented X 3 in moderate distress secondary to pain UDS 05/31/24: compliant for perscribed meds also positive for THC has medical marijuana card HEENT: Normocephalic, atrau matic. PERRL. The oropharynx [...] axial low back pain. Gonzalo's, Gaenslen's and Chauvin's tests are positive bilaterally. There is severe [...] of Present Illness) Category Sub-Category Detail Notes Category Not es Pain Management Radiographic Imaging MRI without contrast 01/24/19: L3-4: Broad-based disc bulge and bilateral facet arthropathy. Mild [...]
--- OUTSIDE RECORDS SUMMARY | 2024-09-06 05:00 | XMS_ITS ---
Author Organization [facility] Address [address] [place] [address] [place]HYA Johnson [address] Care Team Providers Care Cv/Cvn Cv Tsc System Operator Name Role Phone Anabella CARMEN, Joy Primary Care Provider Unavailable Feng Hendrickson Unavailable [phone] ALLERGIES Allergen (clinical drug ingredient) Drug/Non Drug Allergy documented on EMR Reaction Allergy Type Onset Date Status aripiprazole Aripiprazole nausea and vomiting Drug Allergy Active clindamycin Clindamycin diarrhea Drug Allergy Act lucian fentanyl Fentanyl nausea Drug Allergy Active morphine Morphine rash/itching Drug Allergy Acti ve REASON FOR VISIT Right>Left Low Back Pain MEDICATIONS Medication SIG (Take, Route, Frequency, Duration) Notes Start Date End Date Status tiZANidine HCl 4 MG 1 tablet as needed Oral 3 x day muscle spasm for 30 days 12/13/2019 Active HYDROcodone-Acetaminoph en 10-325 MG 1 tablet Orally every 4 to 6 hrs as needed for severe pain (max 5x/day) for 30 days MAY FILL 08/29/24 07/31/2024 Active NIFEdipine ER Osmotic Release 30 MG 30 MG ORALLY DAILY Oral for 90 Active Chlorthalidone 25 MG TAKE 1 TABLET BY MOUTH EVERY DAY Oral for 90 Active Donepezil HCl 5 MG TAKE 1 TABLET BY MOUTH EVERYDAY AT BEDTIME Oral for 90 Active Fluticasone-Salmeterol 250-50 MCG/ACT Inhalation for 30 Active Albuterol Sulfate HFA 108 (90 Base) MCG/ACT Inhalation for 16 A ctive Prolia 60 MG/ML Subcutaneous for 180 Active Irbesartan 150 MG TAKE 1 TABLET BY MOUTH EVERY DAY Oral for 90 Active Spironolactone 25 MG Oral for 90 Active Carvedilol 3.125 MG TAKE 1 TABLET BY MOUTH EVERY 12 HOURS WITH A MEAL/FOOD Oral for 90 Active Losartan Potassium-HCTZ 100-25 MG TAKE 1 TABLET BY MOUTH EVERY DAY Oral for 90 Active Amphetamine-Dextroamphe tamine 20 MG TAKE 1 TABLET BY MOUTH EVERY DAY Oral for 30 Active Metoprolol Succinate ER 25 MG TAKE [...] needed for pain for 30 days Active Losartan Potassium 25 MG 1 tablet [...] 1 capsule Oral Once a day Active Omeprazole 20 MG 1 capsule 30 minutes before morning meal Oral Once a day Active traZODone HCl 100 MG 1 tablet at bedtime Oral Once a day Active VITAL SIGNS Blood pressure systolic 182 mm Hg 09/07/19 25 Blood pressure diastolic 95 mm Hg 025 Heart Rate 84 /min 09/06/2024 Respiratory Rate 18 /min 09/06/2024 Height 60 in 09/06/2024 Weight 135 lbs 09/06/2024 BMI 26.36 kg/m2 09/06/2024 Encounters Encounter Location Date Provider Diagnosis [facility] [address] [facility] [place] [address] [place] [address] 09/06/2024 Feng Hendrickson Sacroiliitis, not elsewhere classified M46.1 ASSESSMENTS Encounter Date Diagnosis Assessment Notes Treatment Notes Treatment Clinical Notes Section Notes 09/06/2024 Sacroiliitis, not elsewhere classified (ICD-10 - M46.1) PLAN OF TREATMENT Next Appt Details Follow Up: F/U 09/27/24, Reaso n: Provider Name:Feng bean, 10/09/2024 11:00:00 AM, [address] [place], [address], Provider Name:Feng bean, 10/24/2024 10:30:00 AM, [address] [place] [address], [phone], Procedure Notes * Category Sub-Category Detail Notes [...] An AP view was obtained superimposing the inferior aspect of the anterior and posterior sacroiliac joint. A 23 gauge 3.5 inch spinal needle was inserted under fluoroscopic guidance towards the superior aspect of the sacroiliac joint until periosteum was contacted. The subcutaneous structures were anesthetized with 1 mL of 1% Preservative-Free lidocaine during needle placement. The needle tip was advanced into the superior most aspect of the sacroiliac joint. A [...] monitored for 20 minutes. Patient reports a 95% reduction in typical pain immediately postprocedure. The patient remained hemodynamically and neurologically stable. No apparent complications were observed. Postoperative instructions were reviewed with the patient. The patient was then discharged home in good condition with a laborer driver. X-ray time: 10 seconds Progress Notes * Examination Category Sub-Category [...] axial low back pain. Gonzalo's, Gaenslen's and [place]'s tests are positive bilaterally. There is severe [...]
--- OUTSIDE RECORDS SUMMARY | 2024-09-27 05:00 | XMS_ITS ---
Author Organization [facility] Address [address] [place] [address] Kristine BirchVIDHYA [address] Care Team Providers Care Scrap Piler Name Role Phone Anabella CARMEN, Joy Primary Care Provider Unavailable Feng Hendrickson Unavailable [phone] ALLERGIES Allergen (clinical drug ingredient) Drug/Non Drug [...] Diagnosis [facility] [address] [facility] [place] [address] 09/27/2024 Feng Chunvikas Sacroiliitis, not elsewhere classified M46.1 ; Spondylosis without myelopathy or radiculopathy, lumbar region M47.816 ; Radiculopathy, lumbar region M54.16 ; Postlaminectomy syndrome, not elsewhere classified M96.1 ; 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 The [place] and [place] PDMP were reviewed and were appropriate 09/27/2024 Postlaminectomy syndrome, not elsewhere classified (ICD-10 - M96.1) 09/27/2024 assisted (current) use of opiate analgesic (ICD-10 - [...] comply with the above. The [place] PDMP were reviewed and were appropriate [...] bilateral L3-5 RF A, Reason: Provider Name:Feng bean, 10/09/2024 11:00:00 AM, [address] [place], [address], Provider Name:Feng bean, 10/24/2024 10:30:00 AM, [address] [facility] [place], [address], Progress Notes * Examination Category Sub-Category Detail [...] axial low back pain. Gonzalo's, Gaenslen's and Dacoma's tests are positive bilaterally. There is severe [...]
--- OUTSIDE RECORDS SUMMARY | 2024-10-08 14:06 | XMS_ITS | Clinical Summary ---
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 Gender Identity Not on file Sexual Orientation Not on file Last Filed Vital Signs Vital Sign Reading Time Taken Comments Blood Pressure 120/64 01/04/2017 12:58 PM BEVELING AND EDGING MACHINE OPERATOR Pulse 65 01/04/2017 12:58 PM BEVELING AND EDGING MACHINE OPERATOR Temperature 36.5 C (97.7 F) 01/04/2017 12:58 PM BEVELING AND EDGING MACHINE OPERATOR Respiratory Rate 18 01/04/2017 12:58 PM BEVELING AND EDGING MACHINE OPERATOR Oxygen Saturation 97% 01/04/2017 12:58 PM BEVELING AND EDGING MACHINE OPERATOR Inhaled Oxygen Concentration - - Weight 62.6 kg (138 lb) 01/04/2017 12:58 PM BEVELING AND EDGING MACHINE OPERATOR Height 152.4 cm (5') 01/04/2017 12:58 PM BEVELING AND EDGING MACHINE OPERATOR Body Mass Index 26.95 01/04/2017 12:58 PM BEVELING AND EDGING MACHINE OPERATOR Plan of Treatment Health Maintenance [...] signed by: Nathan Rojas M.D. bs/suzie:05/15/2017 14:18:37 Outside Deliverer: Cher CARPENTER(Tigre)(Aurelia), [facility] letter sent: Additional Imaging Reading location: [facility] BI-RADS: 0 Additional Imaging Evaluation Needed Procedure [...] signed by: Nathan Rojas M.D. bs/suzie:05/15/2017 14:18:37 Outside Deliverer: Cher CARPENTER(R)(M), [facility] letter sent: Additional Imaging Reading location: [facility] BI-RADS: 0 Additional Imaging Evaluation Needed us [facility] Mario Britt MD IMG MAMMO ORDERABLES Kena l Result from Last 3 Months or Most Recently Relevant to Health Maintenance Insurance MEDICARE C [employer]
--- OUTSIDE RECORDS SUMMARY | 2024-10-08 14:06 | XMS_ITS | Clinical Summary ---
Author Organization [employer] [facility] Address [address] [place] [address] Care Team Providers Care Box Office Manager Name Role Phone Unavailable Primary Care Provider [...] 08/26/2024 Active fluticasone propionate (FLONASE) 50 mcg/spray [place], Suspension nasal inhaler 2 times daily. Active HYDROcodone-goldy taminophen (NORCO) 10-325 mg Tablet Take 1 Tablet by mouth every 6 hours as needed. Active losartan-hydroC HLOROthiazide (HYZAAR) 100-25 mg tablet Take 1 Tablet by mouth daily. 05/30/2024 Active irbesartan (AVAPRO) 150 mg tablet Take 1 Tablet by mouth daily. 07/04/2024 Active hydroCHLOROthia zide 12.5 mg tablet Take 12.5 mg by mouth daily. Active metoprolol succinate (TOPROL XL) 25 mg Extended Release 24 hour tablet Take 25 mg by mouth daily. Active MAGNESIUM CITRATE ORAL Take 250 mg by mouth daily. Active CYANOCOBALAMIN, VITAMIN B-12, ORAL Take by mouth. Active FLUoxetine (PROzac) 40 mg capsule Take 1 Capsule by mouth daily. Active NIFEdipine (PROCARDIA XL) 30 mg Extended Release 24 hour tablet Take 30 mg by mouth daily. Active pyridoxine (VITAMIN B6) 50 mg tablet Take 1 Tablet by mouth daily. 08/26/2024 Active donepeziL (ARICEPT) 5 mg tablet Take 5 mg by mouth daily at bedtime. Active rosuvastatin (CRESTOR) 20 mg tablet Take 1 Tablet by mouth daily. 08/15/2024 Active Cholecalciferol , Vitamin D3, 50 mcg (2,000 unit) Capsule 2,000 Units. Act lucian spironolactone (ALDACTONE) 25 mg tablet Take 25 mg by mouth daily. Active omeprazole (PriLOSEC) 20 mg Capsule, Delayed Release(E.C.) Take 20 mg by mouth daily. Active Active Problems No known active problems Encounters Date Type Department Care Team Description 09/24/2024 2:15 PM CDT Office Visit [facility] - [place] [place] [address] Lazaro Jefferson MD Non-Hodgkin's lymphoma of spleen, unspecified non-Hodgkin lymphoma type (CMS/HCC) (Primary Dx) 09/23/2024 Orders Only [facility] [place] [address] [place] [address] Lazaro Jefferson MD 09/13/2024 Abstract [facility] - [place] [address] [place] [address] Lazaro Jefferson MD 09/13/2024 Abstract [facility] - [place] [address] [place] [address] Conrado Edwards CMA 09/11/2024 Orders Only [facility] - [place] [address] [place] [address] Lazaro Jefferson MD 09/10/2024 External Device Data STL ABSTRACTION Provider, Abstract 09/10/2024 External Device Data ST[facility] ABSTRACTION Provider, Abstract 09/10/2024 External Device Data STL ABSTRACTION Provider, Abstract 09/09/2024 Abstract [facility] - [place] [address] [place] [address] Lazaro Jefferson MD 09/09/2024 Orders Only [facility] [address] [place] [address] Lazaro Jefferson MD 09/06/2024 Orders Only [facility] - [address] [place] [phone] Lazaro Jefferson MD 09/05/2024 1:30 PM CDT Office Visit [facility] [address] [place] [phone] Lazaro Jefferson MD Non-Hodgkin's lymphoma of spleen, unspecified non-Hodgkin lymphoma type (CMS/HCC) (Primary Dx); CML (chronic myelocytic leukemia) ([facility]/HCC) 08/12/2024 Abstract [facility] [address] [place] [address] Lazaro Jefferson MD from Last 3 Months [...] on file Legal 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 Gender Identity Not on file Sexual Orientation Not on file Last Filed Vital Signs Vital Sign Reading Time Taken Comments Blood Pressure 151/90 09/24/2024 2:02 PM CDT Pulse 69 09/24/2024 1:53 PM CDT Temperature 36.7 C (98.1 F) 09/24/2024 1:53 PM CDT Respiratory Rate 16 09/24/2024 1:53 PM CDT Oxygen Saturation 98% 09/24/2024 1:53 PM CDT Inhaled Oxygen Concentration - - Weight 51.1 kg (112 lb 9.6 oz) 09/24/2024 1:53 P M CDT Height 152.4 cm (5') 09/05/2024 1:34 PM CDT Body Mass Index 21.99 09/05/2024 1:34 PM CDT Plan of Treatment Health Maintenance Due Date Last Done Comments ZOSTER VACCINE (1 of 2) 1974 COLORECTAL [...] Procedure Name Priority Date/Time Associated Diagnosis Comments PET BONE IMG W CT SKL BSE MID THG Routine 09/17/2024 12:48 PM CDT FLOW CYTOMETRY REPORT Routine 09/06/2024 11:44 AM CDT KAPPA/LAMBDA LIGHT CHAINS Routine 2024 5:14 PM CDT CBC WITH DIFFERENTIAL Routine 09/05/2024 5:06 PM CDT COMPREHENSIVE METABOLIC PANEL Routine 09/05/2024 2:32 PM CDT IGG Routine 09/05/2024 2:17 PM CDT VITAMIN D 25 HYDROXY Routine 09/05/2024 2:10 PM CDT PROTEIN ELECTROPHORESIS, CSF Routine 09/05/2024 7:44 AM CDT from Last 3 Months Results * PET BONE IMG W CT SKB MDTH (09/17/2024 12:48 PM CDT) Anatomical Region Laterality Modality Positron Emissio n Tomography (PET) Result [facility] us Lazaro Jefferson MD PE ORDERABLES Final Result * FLOW CYTOMETRY REPORT (09/06/2024 11:44 AM CDT) Result Karen Jefferson MD PATHOLOGY/CYTOLOGY ORDERABLES F inal Result * KAPPA/LAMBDA, FREE LIGHT CHAINS (09/05/2024 5:14 PM CDT) Blood Result [facility] us Lazaro Jefferson MD CHEMISTRY ORDERABLES Final Resu lt * CBC WITH DIFFERENTIAL (09/05/2024 5:06 PM CDT) Blood Result Karen Jefferson MD HEMATOLOGY ORDERABLES Final Res ult * COMPREHENSIVE METABOLIC PANEL (09/05/2024 2:32 PM CDT) Blood Result Karen Jefferson MD CHEMISTRY ORDERABLES Final Resu lt * IGG (09/05/2024 2:17 PM CDT) Blood Result Karen Jefferson MD CHEMISTRY ORDERABLES Final Resu lt * VITAMIN D 25 HYDROXY (09/05/2024 2:10 PM CDT) Blood Result Karen Jefferson MD CHEMISTRY ORDERABLES Final Resu lt * PROTEIN ELECTROPHORESIS, CSF (09/05/2024 7:44 AM CDT) Cerebrospinal fluid CEREBROSPINAL FLUID / Unknown us Lazaro Jefferson MD BODY FLUIDS AND STOOLS Final Re sult from Last 3 Months Insurance [facility] Address: [address] [address]
--- OUTSIDE RECORDS SUMMARY | 2024-10-08 14:07 | XMS_ITS | Patient Health Record ---
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 Name Role Phone Anabella CARMEN, Joy Primary Care Provider Unavailable Feng Hendrickson Unavailable [phone] ALLERGIES Allergen (clinical drug ingredient) Drug/Non Drug Allergy documented on EMR Reaction Allergy Type Onset Date Status aripiprazole Aripiprazole nausea and vomiting Drug Allergy Active clindamycin Clindamycin diarrhea Drug Allergy Act lucian fentanyl Fentanyl nausea Drug Allergy Active morphine Morphine rash/itching Drug Allergy Acti ve RESULTS Component Value Reference Range Notes Gibberin Results (Not yet reviewed by provider) Interpretation: Performing Lab:[id number] Subtextual, [address] [facility] [facility] [id number] Angelika Garcia MD Notes/Report: Acetyl fentanyl: Fentanyl [...] 100 ng/mL Tramadol Quantification negative 100 ng/mL D-whzoiutxc-jmlsbdmt Quantification negative 100 n g/mL Y-Upzggqrvt-Obfcgbli Quantification negative 100 n g/mL Alpha-Hydroxyalprazolam Quantification negative 20 ng/mL 2-Fhrrr-Ykdbdyqoeu Quantification negative 20 ng/m L Lorazepam Quantification [...] Mitragynine (Kratom alkaloid) Quantification negative 1 ng/mL 5-ZC-Vmhlohiqwvi (Kratom alk aloid) Quantification negative 1 ng/mL Ethyl Glucuronide Quantification positive-814.348 500 ng/mL Ethyl Sulfate Quantification negative 500 ng/mL Gibberin Results (Not yet reviewed by provider) Interpretation: Performing Lab:[id number] Subtextual, [address] [facility] [address] Angelika Garcia MD Notes/Report: Acetyl fentanyl: Fentanyl [...] 100 ng/mL Tramadol Quantification negative 100 ng/mL S-xmuppppsz-rljcmxoa Quantification negative 100 n g/mL S-Hihiobpid-Ygerccfq Quantification negative 100 n g/mL Alpha-Hydroxyalprazolam Quantification negative 20 ng/mL 9-Ofatf-Evtrpddbkd Quantification negative 20 ng/m L Lorazepam Quantification negative 40 ng/mL Nordiazepam Quantification negative 40 ng/mL Temazepam Quantification negative 50 ng/mL Oxazepam Quantification negative 40 ng/mL Amphetamine Quantification positive-> 74031 100 ng/mL Methamphetamine Quantification negative 100 ng/mL [...] Mitragynine (Kratom alkaloid) Quantification negative 1 ng/mL 5-AC-Bhsdsbarwrl (Kratom alk aloid) Quantification negative 1 ng/mL Ethyl Glucuronide Quantification negative 500 ng/m L Ethyl Sulfate Quantification negative 500 ng/mL Gibberin Results (Not yet reviewed by provider) Interpretation: Performing Lab:[id number] Subtextual, [address] [facility] [id number] Angelika Garcia MD Notes/Report: Acetyl fentanyl: Fentanyl [...] 100 ng/mL Tramadol Quantification negative 100 ng/mL U-xcrdrjsxb-hzkxhuly Quantification negative 100 n g/mL M-Bczmmltlr-Ivssisxs Quantification negative 100 n g/mL Alpha-Hydroxyalprazolam Quantification negative 20 ng/mL 5-Vvdkf-Hjbubyrddr Quantification negative 20 ng/m L Lorazepam Quantification [...] Mitragynine (Kratom alkaloid) Quantification negative 1 ng/mL 3-SF-Lgdhisgefvn (Kratom alk aloid) Quantification negative 1 ng/mL Ethyl Glucuronide Quantification negative 500 ng/m L Ethyl Sulfate Quantification negative 500 ng/mL Gibberin Results (Not yet reviewed by provider) Interpretation: Performing Lab:[id number] Subtextual, [address] [facility] [address] Angelika Garcia MD Notes/Report: Codeine negative 1 ng/mL Morphine negative 1 ng/mL Hydrocodone positive-120.252 1 ng/mL Norhydrocodone Quantification positive-8.450 2 ng/mL Hydromorphone negative 1 ng/mL Oxycodone negative 1 ng/mL Noroxycodone Quantification negative 2 ng/mL Oxymorphone negative 1 ng/mL Fentanyl Quantification negative 0.2 ng/mL Norfentanyl Quantification negative 1 ng/mL Methadone negative 2 ng/mL EDDP (Methadone metabolite) negative 2 ng/mL Tramadol Quantification negative 5 ng/mL J-Jogdvedni-Uremmeoz Quantification negative 5 ng/ mL Alprazolam negative [...] Duration) Notes Start Date End Date Status hydrOXYzine HCl 25 MG TAKE 1 TABLET [...] MOUTH EVERY DAY Oral for 30 Active Fluticasone-Salmeterol 250-50 MCG/ACT Inhalation for 30 Active Prolia 60 MG/ML Subcutaneous for 180 Active Carvedilol 3.125 MG TAKE 1 TABLET [...] Base) MCG/ACT Inhalation for 16 Activ e traZODone HCl 100 MG 1 tablet at bedtime Oral Once a day Active Spironolactone 25 MG Oral for 90 Active Irbesartan 150 MG TAKE 1 TABLET BY ROYA TH EVERY DAY Oral for 90 Active ZyPREXA 5 MG 1 tablet Orally Once a day Active Donepezil HCl 5 MG TAKE 1 TABLET BY ROYA TH EVERYDAY AT BEDTIME Oral for 90 Active amLODIPine Besylate 5 MG 1 tablet Oral Once a day Active Chlorthalidone 25 MG TAKE 1 TABLET BY MO UTH EVERY DAY Oral for 90 Active Vitamin D3 1000 UNIT 1 capsule Orally On a day 09/25/2017 Active NIFEdipine ER Osmotic Release 30 MG 30 MG ORALLY DAILY Oral for 90 Active Losartan Potassium 25 [...] each nostril Nasal Twice a day Active Ferrous Sulfate 325 (65 Fe) MG 325 MG ORALLY TWICE A DAY Oral for 90 Active rOPINIRole HCl 0.5 MG 1 tablet 1 to 3 ho urs before bedtime Orally Once a day Active Voltaren 1 % apply 4 grams to ji nful joint(s) Transdermal 4x/day as needed for pain for 30 days Active HYDROcodone-Acetaminophen 10-325 MG 1 tablet Orally every 4 to 6 hrs as needed for severe pain (max 5x/day) for 30 days 09/27/2024 Active SOCIAL HISTORY Tobacco Use: Social History [...] support system with her uncle and brother. 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) Active confirmed Brachial p cassandra disorder (9650346) Problem Chronic pain syndrome (G89.4) Active confirmed Chronic ji n syndrome (983033033) Problem Unilateral primary osteoarthritis, left knee (M17.12) Active confirmed Osteoarth ritis of knee (319545901) Problem Unspecified osteoarthritis, unspecified site (M19.90) Active confirmed Osteoarthritis (664108358) Problem Pain in right shoulder (M25.511) Active confirmed Pain of r ight shoulder region (finding) (7576617246) Problem Pain in left shoulder (M25.512) Active confirmed Shoulder joint pain (317770896) Problem Sacroiliitis, not elsewhere classified (M46.1) Active confirmed Solitary sacroiliitis (599828060) Problem Spondylosis without myelopathy or radiculopathy, lumbar region (M47.816) Active confirmed Lumbosacral spondylosis without myelopathy (41070995) Problem Spondylosis without myelopathy or radiculopathy, lumbosacral region (M47.817) Active confirmed Lumbosacral spondylosis without myelopathy (disorder) (33493164) Problem Intervertebral disc disorders with radiculopathy, lumbar 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) Active confirmed Radiculopathy due to lumbar intervertebral disc disorder (687712940220450 ) L4-5 HNP Problem Other intervertebral disc degeneration, 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 confirmed Degeneration of lumbar intervertebral disc (43637438) Problem Radiculopathy, lumbar region (M54.16) Active confirmed Lumbar radiculopathy (785546119) Problem Radiculopathy, lumbosacral region (M54.17) Active confirmed Lumbosacral radiculopathy (3190209) Problem Postlaminectomy syndrome, not elsewhere classified (M96.1) Active confirmed Post-lami nectomy syndrome (11307033) Problem Osseous stenosis of neural canal 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) Active confirmed Spinal stenosis of lumbar region (48876297) Problem Intervertebral disc stenosis of neural canal of lumbar region (M99.53) Active confirmed Spinal stenosis of lumbar region (68304247) 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) Active confirmed Long-term current use of anticoagulant (967413752) Problem [facility] (current) use of opiate analgesic (Z79.891) Active confirmed High risk drug monitoring status (519309789) Problem Myalgia, other site (M79.18) Active confirmed Muscle pain (28134932) VITAL SIGNS Heart Rate 50 /min 09/27/2024 Respiratory Rate 16 /min 09/27/2024 Blood pressure diastolic 76 mm Hg 09/27/2024 Height 60 in 09/27/2024 Blood pressure systolic 148 mm Hg 09/27/2024 Weight 133 lbs 09/27/2024 BMI 25.97 kg/m2 09/27/2024 Encounters Encounter Location Date Provider Diagnosis [facility] [address] [place] [address] 10/24/2023 Feng Stynowick Radiculopathy, lumba r region M54.16 [facility] [address] [place] [address] 10/26/2023 Feng Stynowick Radiculopathy, lumba r region M54.16 [facility] [address] [place] [address] 12/19/2023 Feng Stynowick Radiculopathy, lumba r region M54.16 [facility] [address] [facility] [place] [address] 01/29/2024 Feng Stynowick Radiculopathy, lumba r region M54.16 [facility] [address] [facility] [place] [address] 02/19/2024 Feng Stynowick Radiculopathy, lumba r region M54.16 [facility] [address] [facility] [place] [address] 03/18/2024 Feng Stynowick [facility] [address] [facility] [place] [address] 03/27/2024 Feng Stynowick [facility] [address] [facility] [place] [address] 04/26/2024 Feng Stynowick Radiculopathy, lumba r region M54.16 [facility] [address] [place] [address] [place] [address] 07/08/2024 Feng Stynowick Radiculopathy, lumba r region M54.16 [facility] [address] [place] [address] [place] [address] 07/30/2024 Feng Stynowick Radiculopathy, lumba r region M54.16 [facility] [address] [place], [place] [address], [place] [address] 05/10/2024 Feng Stynowick Sacroiliitis, not elsewhere classified M46.1 [facility] [address] [place] [address], [place] [address] 02/16/2024 Feng Stynowick Radiculopathy, lumba r region M54.16 ; Intervertebral disc disorders with radiculopathy, lumbar region M51.16 and Osseous stenosis of neural canal of lumbar region M99.33 [facility] [address] [place] [address], [place] [address] 07/08/2024 Feng Stynowick Radiculopathy, lumba r region M54.16 ; Radiculopathy, lumbosacral region M54.17 and Osseous stenosis of neural canal of lumbar region M99.33 [facility] [address] [place], [place] [address] [place] [address] 03/26/2024 Feng Stynowick Spondylosis without myelopathy or radiculopathy, lumbar region M47.816 and Spondylosis without myelopathy or radiculopathy, lumbosacral region M47.817 [facility] [address] [place] [address], [place] [address] 09/06/2024 Feng Stynowick Sacroiliitis, not elsewhere classified M46.1 [facility] [address] [place], [place] [address], [place] [address] 01/02/2024 Feng Stynowick Sacroiliitis, not elsewhere classified M46.1 [facility] [address] [place] [address], [place] [address] 11/06/2023 Feng Stynowick Radiculopathy, lumba r region M54.16 ; Intervertebral disc disorders with radiculopathy, lumbar region M51.16 and Osseous stenosis of neural canal of lumbar region M99.33 [facility] [address] [place] [address] 10/30/2023 Feng Stynowick Radiculopathy, lumba r region M54.16 ; Spondylosis without myelopathy or radiculopathy, lumbar region M47.816 ; Sacroiliitis, not elsewhere classified M46.1 ; Postlaminectomy syndrome, not elsewhere classified M96.1 ; Other intervertebral disc degeneration, lumbar region M51.36 ; Osseous stenosis of neural canal of lumbar region M99.33 ; 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 Z79.891 [facility] [address] [place] [address] 10/24/2023 Feng Stynowick Radiculopathy, lumba r region M54.16 ; Spondylosis without myelopathy or radiculopathy, lumbar region M47.816 ; Sacroiliitis, not elsewhere classified M46.1 ; Postlaminectomy syndrome, not elsewhere classified M96.1 ; Other intervertebral disc degeneration, lumbar region M51.36 ; Osseous stenosis of neural canal of lumbar region M99.33 ; 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 Z79.891 [facility] [address] [place] [address] 11/29/2023 Feng Stynowick Radiculopathy, lumba r region M54.16 ; Spondylosis without myelopathy or radiculopathy, lumbar region M47.816 ; Sacroiliitis, not elsewhere classified M46.1 ; Postlaminectomy syndrome, not elsewhere classified M96.1 ; Other intervertebral disc degeneration, lumbar region M51.36 ; Osseous stenosis of neural canal of lumbar region M99.33 ; 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 and [facility] (current) use of opiate analgesic Z79.891 [facility] [address] [place] [address] 12/27/2023 Feng Stynowick Radiculopathy, lumba r region M54.16 ; Sacroiliitis, not elsewhere classified M46.1 ; Spondylosis without myelopathy or radiculopathy, lumbar region M47.816 ; Postlaminectomy syndrome, not elsewhere classified M96.1 ; Other intervertebral disc degeneration, lumbar region M51.36 ; Osseous stenosis of neural canal of lumbar region M99.33 ; 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 and [facility] (current) use of opiate analgesic Z79.891 [facility] [address] [place] [address] 01/25/2024 Feng Stynowick Radiculopathy, lumba r region M54.16 ; Sacroiliitis, not elsewhere classified M46.1 ; Spondylosis without myelopathy or radiculopathy, lumbar region M47.816 ; Postlaminectomy syndrome, not elsewhere classified M96.1 ; Other intervertebral disc degeneration, lumbar region M51.36 ; Osseous stenosis of neural canal of lumbar region M99.33 ; 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 Z79.891 [facility] [address] [place] [address] 01/29/2024 Feng Stynowick Radiculopathy, lumba r region M54.16 ; Sacroiliitis, not elsewhere classified M46.1 ; Spondylosis without myelopathy or radiculopathy, lumbar region M47.816 ; Postlaminectomy syndrome, not elsewhere classified M96.1 ; Other intervertebral disc degeneration, lumbar region M51.36 ; Osseous stenosis of neural canal of lumbar region M99.33 ; 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 Z79.891 [facility] [address] [place] [address] 02/06/2024 Feng Stynowick Radiculopathy, lumba r region M54.16 ; Sacroiliitis, not elsewhere classified M46.1 ; Spondylosis without myelopathy or radiculopathy, lumbar region M47.816 ; Postlaminectomy syndrome, not elsewhere classified M96.1 ; Other intervertebral disc degeneration, lumbar region M51.36 ; Osseous stenosis of neural canal of lumbar region M99.33 ; 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 Z79.891 [facility] [address] [place] [address] 09/27/2024 Feng Hendrickson Sacroiliitis, not elsewhere classified M46.1 ; Spondylosis without myelopathy or radiculopathy, lumbar region M47.816 ; Radiculopathy, lumbar region M54.16 ; Postlaminectomy syndrome, not elsewhere classified M96.1 ; [facility] (current) use of opiate analgesic Z79.891 ; Radiculopathy, lumbosacral region M54.17 and Spondylosis without myelopathy or radiculopathy, lumbosacral region M47.817 [facility] [address] [place] [address] 03/06/2024 Feng Hendrickson Radiculopathy, lumba r region M54.16 ; Spondylosis without myelopathy or radiculopathy, lumbar region M47.816 ; Sacroiliitis, not elsewhere classified M46.1 ; Postlaminectomy syndrome, not elsewhere classified M96.1 ; Other intervertebral disc degeneration, lumbar region M51.36 ; Osseous stenosis of neural canal of lumbar region M99.33 ; 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 Z79.891 [facility] [address] [place] [address] 05/03/2024 Feng Hendrickson Spondylosis without myelopathy or radiculopathy, lumbar region M47.816 ; Sacroiliitis, not elsewhere classified M46.1 ; Radiculopathy, lumbar region M54.16 ; Postlaminectomy syndrome, not elsewhere classified M96.1 ; Other intervertebral disc degeneration, lumbar region M51.36 ; Osseous stenosis of neural canal of lumbar region M99.33 ; 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 Z79.891 [facility] [address] [place] [address] 04/05/2024 Feng Hendrickson Radiculopathy, lumba r region M54.16 ; Spondylosis without myelopathy or radiculopathy, lumbar region M47.816 ; Sacroiliitis, not elsewhere classified M46.1 ; Postlaminectomy syndrome, not elsewhere classified M96.1 ; Other intervertebral disc degeneration, lumbar region M51.36 ; Osseous stenosis of neural canal of lumbar region M99.33 ; 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 Z79.891 [facility] [address] [place] [address] 06/03/2024 Feng Stynowick Sacroiliitis, not elsewhere classified M46.1 ; Radiculopathy, lumbar region M54.16 ; Spondylosis without myelopathy or radiculopathy, lumbar region M47.816 ; Postlaminectomy syndrome, not elsewhere classified M96.1 ; Other intervertebral disc degeneration, lumbar region M51.36 ; Osseous stenosis of neural canal of lumbar region M99.33 ; 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 Z79.891 [facility] [address] [place] [address] 07/01/2024 Feng Stynowick Sacroiliitis, not elsewhere classified M46.1 ; Radiculopathy, lumbar region M54.16 ; Spondylosis without myelopathy or radiculopathy, lumbar region M47.816 ; Postlaminectomy syndrome, not elsewhere classified M96.1 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 Z79.891 [facility] [address] [place] [address] 07/31/2024 Feng Stynowick Radiculopathy, lumba r region M54.16 ; Radiculopathy, lumbosacral region M54.17 ; Osseous stenosis of neural canal of lumbar region M99.33 ; Sacroiliitis, not elsewhere classified M46.1 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 The [place] PDMP were reviewed and were [...] to fully comply with the above. The [facility] PDMP were reviewed and were [...] to fully comply with the above. The [facility] PDMP were reviewed and were [...] to fully comply with the above. The [place] and [place] PDMP were reviewed and were appropriate 12/27/2023 [...] to fully comply with the above. The [facility] PDMP were reviewed and were [...] to fully comply with the above. The [facility] PDMP were reviewed and were [...] to fully comply with the above. The [place] PDMP were reviewed and were appropriate 02/06/2024 [...] to fully comply with the above. The [place] PDMP were reviewed and were appropriate 03/06/2024 [...] to fully comply with the above. The [place] PDMP were reviewed and were appropriate 04/05/2024 [...] to fully comply with the above. The [place] PDMP were reviewed and were appropriate 07/01/2024 [...] to fully comply with the above. The [place] PDMP were reviewed and were appropriate 07/31/2024 [...] to fully comply with the above. The [place] PDMP were reviewed and were appropriate 07/08/2024 [...] not elsewhere classified (ICD-10 - M46.1) 09/27/2024 Sacroiliitis, not elsewhere classified (ICD-10 - [...] to fully comply with the above. The [place] PDMP were reviewed and were appropriate 07/08/2024 Osseous stenosis of neural canal of [...] to fully comply with the above. The [place] PDMP were reviewed and were appropriate 07/01/2024 [...] to fully comply with the above. 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.891) 10/30/2023 Other The above-named patient was evaluated [...] with Patient and Medical Decision Makin minutes 09/27/2024 Other The above-named patient was evaluated [...] Lumbar Spine with and without Cont rast (74527) 04/25/2022 MRI : Lumbar Spine with and without Cont rast (74466) 02/01/2022 XRAY right shoulder 09/09/2020 [facility] 01/03/2022 [facility] 03/29/2022 [facility] 09/16/2022 [facility] 06/01/2023 [facility] 08/28/2023 [facility] 11/29/2023 [facility] 03/06/2024 [facility] 05/31/2024 [facility] 08/27/2024 Next Appt Details Provider Name:Feng Olivo Lay bean, 10/09/2024 11:00:00 AM, [address] [place], [address], Provider Name:Feng Olivo Lay bean, 10/24/2024 10:30:00 AM, [address] [place], [address], Insurance Providers Payer Name Payer Address Payer Phone Subscriber Number Group Number Insured Name Patient Relationship to Insured Coverage Start Date Coverage End Date [employer] Claims [address] [address] [place] [phone] [id number] MIKE PADGETT Self - patient is the insured 8 MEDICAL (GENERAL) HISTORY Medical History History ICD Code Hypertension Stomach Ulcers Depression Insomnia GERD Anemia Asthma Migraine Surgical History Surgery Date(Month/Year) Pain Pump Removal 2011 Multiple Lumbar Surgeries
[2024-10-08 14:29] LABS: Hematocrit 30.8 % (37.0-47.0); Hemoglobin 9.9 g/dL (12.0-15.0); Mean Corpuscular HGB Conc 32.1 g/dl (32-36); Mean Corpuscular Hemoglobin 27.9 pg (26-34); Mean Corpuscular Volume 86.8 fl (80-100); Platelet Count Result 140 k/mm3 (150-375); Red Blood Count 3.55 M/mm3 (4.2-5.4); White Blood Count 3.1 K/mm3 (4.5-10.0)
[2024-10-08 15:58] LABS: Total Protein Urine Random 230 mg/dL; Ur Ttl Prot Creatinine Ratio 1.40 mg/mg (0-0.20)
[2024-10-08 17:39] LABS: Albumin Level 4.4 g/dL (3.5-5.1); Anion Gap 8 mmol/L (4-12); Blood Urea Nitrogen 42 mg/dL (7-17); Calcium 10.0 mg/dL (8.4-10.2); Carbon Dioxide 24 mmol/L (22-30); Chloride 105 mmol/L (98-107); Estimated Glomerular Filt Rate 24; Glucose 99 mg/dL (65-110); Potassium 4.8 mmol/L (3.4-5.0); Sodium 137 mmol/L (137-145)
[2024-10-08 17:59] LABS: Parathyroid Intact < 14.5 pg/mL (14.5-75.2)
== END 2024-10-08 13:49 | disposition home or self-care (01) ==
PROVIDERS: PCP Family Medicine; Visit Provider Internal Medicine Nephrology
DX: I12.9 Hypertensive chronic kidney disease with stage 1 through stage 4 chronic kidney disease, or unspecified chronic kidney disease (principal); N18.32 Chronic kidney disease, stage 3b
CPT/HCPCS: 36415; 80069; 82570; 83970; 84156; 85027

== ENCOUNTER 2024-11-25 15:48 | Outpatient (CLI) | payer MEDICARE, SELFPAY ==
--- OUTSIDE RECORDS SUMMARY | 2024-10-24 05:30 | XMS_ITS ---
Author Organization [facility] Address [address] [place] [address] [place] [address] Care Team Providers Care Customer Service Receptionist Name Role Phone Anabella CARMEN, Joy Primary Care Provider Unavailable Feng Hendrickson Unavailable [phone] ALLERGIES Allergen (clinical drug ingredient) Drug/Non Drug [...] Date Provider Diagnosis [facility] [address] [facility] [place] [address] 10/24/2024 Feng Hendrickson Spondylosis without myelopathy or [...] to fully comply with the above. The [place] and [place] PDMP were reviewed and were appropriate 10/24/2024 [...] to fully comply with the above. The [place] and [place] PDMP were reviewed and were appropriate Other [...] Name:Feng Geovani bean, 12/25/2024 11:00:00 AM, [address] [place], [address], Progress Notes * Examination Category Sub-Category Detail [...] axial low back pain. Gonzalo's, Gaenslen's and [place]'s tests are positive bilaterally. There is severe [...]
--- OUTSIDE RECORDS SUMMARY | 2024-11-11 08:00 | XMS_ITS ---
Author Organization [facility] Address [address] [place] [address] VIDHYA Johnson [address] Care Team Providers Care Doctor Of Audiology Name Role Phone Anabella CARMEN, Joy Primary Care Provider Unavailable Feng Hendrickson Unavailable [phone] ALLERGIES Allergen (clinical drug ingredient) Drug/Non Drug [...] Diagnosis [facility] [address] [facility] [place] [address] 11/11/2024 Feng Emeka Postlaminectomy syndrome, not elsewhere [...] comply with the above. The [place] PDMP were reviewed and were appropriate 11/11/2024 [...] comply with the above. The [place] PDMP were reviewed and were appropriate Radiculopathy, [...] bilateral L4-5 TF E, Reason: Provider Name:Feng baen, 12/25/2024 11:00:00 AM, [address] [place], [address], Progress Notes * Examination Category [...] axial low back pain. Gonzalo's, Gaenslen's and [place]'s tests are positive bilaterally. There is severe [...]
--- OUTSIDE RECORDS SUMMARY | 2024-11-18 05:45 | XMS_ITS ---
Author Organization [facility] Address [address] [place] [address] VIHDYA Johnson [address] Care Team Providers Care Mitochondrial Disorders Counselor Name Role Phone Anabella CARMEN, Joy Primary Care Provider Unavailable Feng Hendrickson Unavailable [phone] ALLERGIES Allergen (clinical drug ingredient) Drug/Non Drug [...] Date Provider Diagnosis [facility] [address] [place] [address] 11/18/2024 Feng Hendrickson Radiculopathy, lumbar region M54.16 [...] Reason: Provider Name:Feng bean, 12/25/2024 11:00:00 AM, [address] [place] [address], [phone], Procedure Notes * Category Sub-Category Detail Notes [...] 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 X-ray time: 17 seconds Progress [...] axial low back pain. Gonzalo's, Gaenslen's and [place]'s tests are positive bilaterally. There is severe [...]
--- OUTSIDE RECORDS SUMMARY | 2024-11-21 06:00 | XMS_ITS ---
Author Organization [facility] Address [address] [facility] [place]anchal [address] Care Team Providers Care Diversified Crops Farmworker Name Role Phone Anabella CARMEN, Joy Primary Care Provider Unavailable Feng Hendrickson Unavailable [phone] REASON FOR VISIT FOLLOW UP Encounters Encounter Location Date Provider Diagnosis [facility] [address] [facility] [place] [address] 11/21/2024 Feng Hendrickson PLAN OF TREATMENT Next Appt Details Provider Name:Feng bean, 12/25/2024 11:00:00 AM, [address] [facility] [place], [address],
--- OUTSIDE RECORDS SUMMARY | 2024-11-21 09:30 | XMS_ITS ---
Author Organization [facility] Address [address] [place] [address] VIDHYA Johnson [address] Care Team Providers Care Knitting Machine Operator Name Role Phone Anabella CARMEN, Joy Primary Care Provider Unavailable Feng Hendrickson Unavailable [phone] ALLERGIES Allergen (clinical drug ingredient) Drug/Non Drug [...] Location Date Provider Diagnosis [facility] [address] [place] [address] [place] [address] 11/21/2024 Feng Hendrickson Radiculopathy, lumbar region M54.16 [...] Provider Name:Feng Geovani bean, 12/25/2024 11:00:00 AM, [address] [place] [address], [phone], Progress Notes * Examination Category Sub-Category [...] axial low back pain. Gonzalo's, Gaenslen's and [place]'s tests are positive bilaterally. There is severe [...]
--- OUTSIDE RECORDS SUMMARY | 2024-11-25 16:11 | XMS_ITS | Clinical Summary ---
Author Organization [employer] [facility] Address [address] [place] [address] Care Team Providers Care Pharmacy Sales Representative Name Role Phone Unavailable Primary Care [...] 08/26/2024 Active fluticasone propionate (FLONASE) 50 mcg/spray [place], Suspension nasal inhaler 2 times daily. Active [...] Encounters Date Type Department Care Team Description 11/12/2024 External Device Data [facility] Provider, Abstract 11/05/2024 External Device Data [facility] Provider, Abstract 10/29/2024 External Device Data [facility] Provider, Abstract 09/24/2024 2:15 PM CDT Office Visit [facility] [address] [address] [place] [address] Lazaro Jefferson MD Non-Hodgkin's lymphoma of spleen, unspecified non-Hodgkin lymphoma type (CMS/HCC) (Primary Dx) 09/23/2024 Orders Only [facility] [place] [address] [place] [address] Lazaro Jefferson MD 09/13/2024 Abstract [facility] [place] [address] [place] [address] Lazaro Jefferson MD 09/13/2024 Abstract [facility] [place] [address] [place] [address] Conrado Edwards CMA 09/11/2024 Orders Only [facility] [place] [address] [place] [address] Lazaro Jefferson MD 09/10/2024 External Device Data [facility] Provider, Abstract 09/10/2024 External Device Data [facility] Provider, Abstract 09/10/2024 External Device Data [facility] Provider, Abstract 09/09/2024 Abstract [facility] [address] [address] [place] [address] Lazaro Jefferson MD 09/09/2024 Orders Only [facility] [place] [address] [place] [address] Lazaro Jefferson MD 09/06/2024 Orders Only [facility] [place] [address] [place] [address] Lazaro Jefferson MD 09/05/2024 1:30 PM CDT Office Visit [facility] [address] [address] [place] [address] Lazaro Jefferson MD Non-Hodgkin's lymphoma of spleen, unspecified non-Hodgkin lymphoma type (CMS/HCC) (Primary Dx); CML (chronic myelocytic leukemia) (CMS/HCC) from Last 3 Months Family History Medical [...] on file Legal Sex Female 7:14 PM ENVIRONMENTAL SERVICES SPECIALIST Gender Identity Not on file Sexual Orientation [...] Modality Positron Emissio n Tomography (PET) Result Karen Jefferson MD PE ORDERABLES Final Result * FLOW CYTOMETRY REPORT (09/06/2024 11:44 AM CDT) Result Karen Jefferson MD PATHOLOGY/CYTOLOGY ORDERABLES F inal Result * KAPPA/LAMBDA, FREE LIGHT CHAINS (09/05/2024 5:14 PM CDT) Blood Result [facility] Lazaro Jefferson MD CHEMISTRY ORDERABLES Final Resu lt * CBC WITH DIFFERENTIAL (09/05/2024 5:06 PM CDT) Blood Result [facility] us Lazaro Jefferson MD HEMATOLOGY ORDERABLES Final [...]
--- OUTSIDE RECORDS SUMMARY | 2024-11-25 16:12 | XMS_ITS | Clinical Summary ---
Author Organization [facility] Address [address] [place] [address] Care Team Providers Care Metallurgical Lab Technician Name Role Phone Dolly Grimes LIFE SCIENCE TAXONOMIST Primary Care Provider [phone] Allergies Active Allergy Reactions Criticality Noted Date Comments Morphine Itching 12/21/2006 Medications omeprazole (PRILOSEC) 20 MG capsule daily. Active rOPINIRole (REQUIP) 0.5 MG tablet daily. Active traZODone (DESYREL) 100 MG tablet Take 3 tablets (300 mg total) by mouth nightly at bedtime. Active OLANZapine (ZYPREXA) 5 MG tablet daily. Active hydrOXYzine (ATARAX) 25 MG tablet TAKE 1 TABLET BY MOUTH THREE TIMES A DAY NEEDED FOR ANXIETY Oral for 10 Active fluticasone-michelle meterol (ADVAIR DISKUS) 250-50 MCG/ACT inhaler Inhalation for 30 Active FLUoxetine (PROZAC) 40 MG capsule 1 capsule (40 mg total) daily. Active ferrous sulfate, 65 mg elemental, 325 (65 FE) MG tablet Take 1 tablet (325 mg total) by mouth. Active Cholecalciferol 50 MCG (2000 UT) Cap TAKE 1 CAPSULE BY MOUTH EVERY DAY Oral for 90 Active carvedilol (COREG) 3.125 MG tablet Take 1 tablet (3.125 mg total) by mouth 2 (two) times daily. Active amphetamine-dex troamphetamine (ADDERALL) 20 MG tablet Take 1 tablet (20 mg total) by mouth daily. Active busPIRone (BUSPAR) 10 MG tablet Take 1 tablet (10 mg total) by mouth 3 (three) times daily. 4 Active amLODIPine (NORVASC) 10 MG tablet Take 1 tablet (10 mg total) by mouth daily. 5 Active albuterol sulfate HFA 108 (90 Base) MCG/ACT inhaler INHALE 1 PUFF EVERY 4-6 HOURS NEEDED FOR SHORTNESS OF BREATH/WHEEZING 5 Active irbesartan (AVAPRO) 150 MG tablet Take 1 tablet (150 mg total) by mouth daily. Active chlorthalidone (HYGROTEN) 25 MG tablet Take 1 tablet (25 mg total) by mouth daily. Active PROLIA 60 MG/ML injection 5 Active donepezil (ARICEPT) 5 MG Tab Take 1 tablet (5 mg total) by mouth nightly at bedtime. 5 Active HYDROcodone-goldy taminophen (NORCO) 10-325 MG tablet 1 TABLET ORALLY EVERY 4 TO 6 HRS NEEDED FOR SEVERE PAIN (MAX 5X/DAY) 30 DAYS 5 Active NIFEdipine XL (PROCARDIA XL) 60 MG 24 hr tablet Take 1 tablet (60 mg total) by mouth daily. 5 Active vitamin B-6 (VITAMIN B-6) 50 MG tablet Take 1 tablet (50 mg total) by mouth daily. 5 Active rosuvastatin (CRESTOR) 20 MG tablet Take 1 tablet (20 mg total) by mouth daily. 5 Active spironolactone (ALDACTONE) 25 MG tablet Take 1 tablet (25 mg total) by mouth daily. 5 Active tiZANidine (ZANAFLEX) 4 MG tablet Take 1 tablet (4 mg total) by mouth 3 (three) times daily as needed. 5 Active Encounters Date Type Department Care Team Description 11/25/2024 Orders Only [facility] [place] [address] Marisel Delacruz MD 11/25/2024 Pre-Procedure Call [facility] [place] [address] Rayo Vogel MD Preprocedure Call 10/08/2024 Orders Only [facility] [place] [address] Marisel Delacruz MD 09/25/2024 Pre-Procedure Call [facility] [place] [address] Marisel Delacruz MD Preprocedure Call from Last 3 Months Family History Medical History Relation Comments Valvular heart disease Father CHF Mother Cancer Mother BREAST CA Diabetes Mother Relation Status Comments Father Mother Social History Tobacco Use Types Packs/Day Years Used Date Smoking Tobacco: Former Cigarettes Smokeless Tobacco: Never Tobacco Cessation:Counseling Given: Not Answered Alcohol Use Standard Drinks/Week Comments Never 0 (1 standard drink = 0.6 oz pur e alcohol) Comments No Sex and Gender Information Value Date Recorded Sex Assigned at Female 04/18/2024 4:10 PM GRADES 1 THRU 6 VISITING TEACHER Legal Sex Female 4:08 PM GRADES 1 THRU 6 VISITING TEACHER Gender Identity Not on file Sexual Orientation Not on file Last Filed Vital Signs Vital Sign Reading Time Taken Comments Blood Pressure - - Pulse - - Temperature - - Respiratory Rate - - Oxygen Saturation - - Inhaled Oxygen Concentration - - Weight 50.8 kg (112 lb) 11/25/2024 12:01 AM CDT Height 152.4 cm (5') 11/25/2024 12:01 AM CDT Body Mass Index 21.87 11/25/2024 12:01 AM CDT Plan of Treatment Upcoming Encounters Date Type Department Care Team (Late st Contact Info) Description 12/02/2024 7:25 AM CDT Appointment [facility] [place] [address] Marisel Delacruz MD [address] [place] [id number] 12/02/2024 7:30 AM CDT Appointment [facility] [address] Rayo Vogel MD [address] [facility] [address] [place] [phone] 12/02/2024 9:[address] [facility] [place] [address] Rayo Vogel MD [address] [place] [address] Health Maintenance Due Date Last Done Comments Colorectal Cancer Screening Colonoscopy (10 Years) 1954 Hepatitis C 1972 Zoster Vaccines (1 of 2) 2004 Annual Medicare Wellness Visit 05/13/2019 Dexa Scan (General) 05/13/2019 09/01/2011 Mammogram Screening 05/13/2019 2017, 5 DTaP, Tdap and Td Vaccines (2 - Td or Tdap) 12/05/2023 12/04/2013, 06/09/2005 COVID-19 Vaccine ( - season) 2024 05/22/2020, 05/01/2020 Influenza Adult (#1) 2024 04/05/2024, 11/30/2018, 02/03/2018, Additional history exists RSV Immunization or 60+ Years (1 - 1-dose 75+ series) 2029 Pneumococcal Vaccine: 50+ Years Completed 04/05/2024, 08/27/2014 Meningococcal B Vaccine Aged Out No l onger eligible based on patient's age to complete this topic Meningococcal Vaccine Aged Out No cruzito timothy eligible based on patient's age to complete this topic RSV Immunizations Under 20 Months Aged Out No longer eligible based on patient's age to complete this topic Insurance [facility] MEDICARE Care Teams Metallurgical Lab Technician Relationship Specialty Start Date End Date Dolly Grimes FNP [facility] [facility] [address] [place] [address] [place] [id number] PCP - General Nurse Practitioner Family 05/21/24
--- OUTSIDE RECORDS SUMMARY | 2024-11-25 16:12 | XMS_ITS | Encounter Summary ---
Author Organization [facility] Address [facility] [place] [address] Care Team Providers Care Barrel Line Operator Name Role Phone Dolly Grimes JOURNALISM INSTRUCTOR Primary Care Provider [phone] Reason for Visit * Reason Onset Date Comments Preprocedure Call 11/25/2024 Encounter Details Date Type Department Care Team (Late Contact Info) Description 11/25/2024 Pre-Procedure Call [facility] [place] [address] Rayo Vogel MD [address] [place] [address] Preprocedure Call Social History Tobacco Use Types Packs/Day Years Used Date Smoking Tobacco: Former Cigarettes Smokeless Tobacco: Never Alcohol Use Standard Drinks/Week Comments Never 0 (1 standard drink = 0.6 oz pur e alcohol) Comments No Sex and Gender Information Value Date Recorded Sex Assigned at Female 04/18/2024 4:10 PM DOCKET SPECIALIST Legal Sex Female 4:08 PM DOCKET SPECIALIST Gender Identity Not on file Sexual [...] Mass Index 21.87 11/25/2024 12:01 AM CDT documented in this encounter Plan of Treatment Upcoming Encounters Date Type Department Care Team (Late Contact Info) Description 12/02/2024 7:[address] [facility] [place] [address] Marisel Delacruz MD [address] [place] [phone] 12/02/2024 7:[address] [facility] [place] [address] Rayo Vogel MD [address] [place] [address] [address] [place] [phone] 12/02/2024 9:[address] [facility] [place] [address] Rayo Vogel MD [address] [place] [address] [place] [id number] documented as of this encounter Visit Diagnoses Not on filedocumented in this encounter Care Teams Barrel Line Operator Relationship Specialty Start Date End Date Dolly Grimes FNP [facility] [address] [phone] PCP - General Nurse Practitioner Family 05/21/24 documented as of this encounter
--- OUTSIDE RECORDS SUMMARY | 2024-11-25 16:12 | XMS_ITS | Patient Health Record ---
Author Organization [facility] Address [address] [place] [address] VIDHYA Johnson [address] Care Team Providers Care Manager Maritime Name Role Phone Anabella CARMEN, Joy Primary Care Provider Unavailable Feng Hendrickson Unavailable [phone] ALLERGIES Allergen (clinical drug ingredient) Drug/Non Drug Allergy documented on EMR Reaction Allergy Type Onset Date Status aripiprazole Aripiprazole nausea and vomiting Drug Allergy Active clindamycin Clindamycin diarrhea Drug Allergy Act lucian fentanyl Fentanyl nausea Drug Allergy Active morphine Morphine rash/itching Drug Allergy Acti ve RESULTS Component Value Reference Range Notes Itaro Results (Not yet reviewed by provider) Interpretation: Performing Lab:[id number] [employer], [address] [address] [facility] [address] Angelika Garcia MD Notes/Report: Acetyl fentanyl: Fentanyl [...] 100 ng/mL Tramadol Quantification negative 100 ng/mL D-chzkrgkxv-baewyzyy Quantification negative 100 n g/mL I-Ystblqegp-Pcvcknzf Quantification negative 100 n g/mL Alpha-Hydroxyalprazolam Quantification negative 20 ng/mL 5-Krmdf-Yvyzttpppq Quantification negative 20 ng/m L Lorazepam Quantification [...] Mitragynine (Kratom alkaloid) Quantification negative 1 ng/mL 0-AL-Wkcesekwkrm (Kratom alk aloid) Quantification negative 1 ng/mL Ethyl Glucuronide Quantification positive-814.348 500 ng/mL Ethyl Sulfate Quantification negative 500 ng/mL Itaro Results (Not yet reviewed by provider) Interpretation: Performing Lab:[id number] [employer], [address] [facility] [address] Angelika Garcia MD Notes/Report: Codeine negative 1 ng/mL Morphine negative 1 ng/mL Hydrocodone positive-120.252 1 ng/mL Norhydrocodone Quantification positive-8.450 2 ng/mL Hydromorphone negative 1 ng/mL Oxycodone negative 1 ng/mL Noroxycodone Quantification negative 2 ng/mL Oxymorphone negative 1 ng/mL Fentanyl Quantification negative 0.2 ng/mL Norfentanyl Quantification negative 1 ng/mL Methadone negative 2 ng/mL EDDP (Methadone metabolite) negative 2 ng/mL Tramadol Quantification negative 5 ng/mL Z-Rhxtfymzm-Nopufhmw Quantification negative 5 ng/ mL Alprazolam negative [...] 6-WALTER (Heroin metabolite) Quantification negative 1 ng/mL [facility] Results (Not yet reviewed by provider) Interpretation: Performing Lab:[id number] [facility], [address] [address] [facility] [address] Angelika Garcia MD Notes/Report: Acetyl fentanyl: Fentanyl [...] 100 ng/mL Tramadol Quantification negative 100 ng/mL Z-bepolxkol-wsxfaypb Quantification negative 100 n g/mL P-Cqbbwpgsb-Oxsgfkpc Quantification negative 100 n g/mL Alpha-Hydroxyalprazolam Quantification negative 20 ng/mL 7-Qcmwu-Mxznoffoti Quantification negative 20 ng/m L Lorazepam Quantification [...] Mitragynine (Kratom alkaloid) Quantification negative 1 ng/mL 4-CA-Kquhsicnjrl (Kratom alk aloid) Quantification negative 1 ng/mL Ethyl Glucuronide Quantification negative 500 ng/m L Ethyl Sulfate Quantification negative 500 ng/mL [facility] Results (Not yet reviewed by provider) Interpretation: Performing Lab:[id number] [facility], [address] [facility] [address] Angelika Garcia MD Notes/Report: Acetyl fentanyl: Fentanyl [...] 100 ng/mL Tramadol Quantification negative 100 ng/mL S-ksxzbdxzz-hzhwsory Quantification negative 100 n g/mL G-Puwtvhtdh-Prvcmxdb Quantification negative 100 n g/mL Alpha-Hydroxyalprazolam Quantification negative 20 ng/mL 1-Ndwez-Huufhwvvkv Quantification negative 20 ng/m L Lorazepam Quantification negative 40 ng/mL Nordiazepam Quantification negative 40 ng/mL Temazepam Quantification negative 50 ng/mL Oxazepam Quantification negative 40 ng/mL Amphetamine Quantification positive-> 97165 100 ng/mL Methamphetamine Quantification negative 100 ng/mL [...] Mitragynine (Kratom alkaloid) Quantification negative 1 ng/mL 5-TM-Idhtakgqvzb (Kratom alk aloid) Quantification negative 1 ng/mL [...] each nostril Nasal Twice a day Active HYDROcodone-Acetaminoph en 10-325 MG 1 tablet Orally every 4 to 6 hrs as needed for severe pain (max 5x/day) for 30 days MAY FILL 11/26/24 11/11/2024 Active Losartan Potassium 25 MG 1 tablet Oral Once a day Active tiZANidine HCl [...] Orally On ce a day 09/25/2017 Active NIFEdipine ER Osmotic Release 30 MG 30 MG ORALLY DAILY Oral for 90 Active traZODone HCl 100 MG 1 tablet at bedtime Oral Once a day Active Spironolactone 25 MG Oral for 90 Active Omeprazole 20 MG 1 capsule 30 minutes before morning meal Oral Once a day Active Irbesartan 150 MG TAKE 1 TABLET BY MOUTH EVERY DAY Oral for 90 Active Prolia 60 MG/ML Subcutaneous for 180 Active FLUoxetine HCl 40 MG 1 capsule [...] WITH A MEAL/FOOD Oral for 90 Active SOCIAL HISTORY Tobacco [...] support system with her uncle and brother. [employer] The patient is disabled and last worked [...] support system with her uncle and brother. [employer] The patient is disabled and last worked [...] support system with her uncle and brother. 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 She is and has 2 children. 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 She is and has 2 children. 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 She is and has 2 children. 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 She is and has 2 children. 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 She is and has 2 children. 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 She is and has 2 children. 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 She denies tobacco, alcohol, and drug use. The patient is disabled and last worked in 1986. She is and has 2 children. 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 She is and has 2 children. 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 She is and has 2 children. 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) Active confirmed Brachial p cassandra disorder (9494018) Problem Chronic pain syndrome (G89.4) Active confirmed Chronic ji n syndrome (560414099) Problem Unilateral primary osteoarthritis, left knee (M17.12) Active confirmed Osteoarth ritis of knee (658130319) Problem Unspecified osteoarthritis, unspecified site (M19.90) Active confirmed Osteoarthritis (787790119) Problem Pain in right shoulder (M25.511) Active confirmed Pain of r ight shoulder region (finding) (1961128997) Problem Pain in left shoulder (M25.512) Active confirmed Shoulder joint pain (763191043) Problem Sacroiliitis, not elsewhere classified (M46.1) Active confirmed Solitary sacroiliitis (541971387) Problem Spondylosis without myelopathy or radiculopathy, lumbar region (M47.816) Active confirmed Lumbosacral spondylosis without myelopathy (86347373) Problem Spondylosis without myelopathy or radiculopathy, lumbosacral region (M47.817) Active confirmed Lumbosacral spondylosis without myelopathy (disorder) (09273339) Problem Intervertebral disc disorders with radiculopathy, lumbar 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) Active confirmed Radiculopathy due to lumbar intervertebral disc disorder (854522667527335 ) L4-5 HNP Problem Other intervertebral disc degeneration, 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 confirmed Degeneration of lumbar intervertebral disc (56472277) Problem Radiculopathy, lumbar region (M54.16) Active confirmed Lumbar radiculopathy (865902722) Problem Radiculopathy, lumbosacral region (M54.17) Active confirmed Lumbosacral radiculopathy (3056152) Problem Postlaminectomy syndrome, not elsewhere classified (M96.1) Active confirmed Post-lami nectomy syndrome (61418488) Problem Osseous stenosis of neural canal 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) Active confirmed Spinal stenosis of lumbar region (16330108) Problem Intervertebral disc stenosis of neural canal of lumbar region (M99.53) Active confirmed Spinal stenosis of lumbar region (87078311) 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 Blood pressure diastolic 108 mm Hg 11/21/2024 Height 60 in 11/21/2024 Blood pressure systolic 197 mm Hg 11/21/2024 Weight 133 lbs 11/21/2024 BMI 25.97 kg/m2 11/21/2024 Encounters Encounter Location Date Provider Diagnosis [facility] [address] [facility] [place] [address] 11/29/2023 Feng Stynowick Radiculopathy, lumba r region M54.16 ; Spondylosis without myelopathy or radiculopathy, lumbar region M47.816 ; Sacroiliitis, not elsewhere classified M46.1 ; Postlaminectomy syndrome, not elsewhere classified M96.1 ; Other intervertebral disc degeneration, lumbar region M51.36 ; Osseous stenosis of neural canal of lumbar region M99.33 ; 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 and tank terminal gauger (current) use of opiate analgesic Z79.891 [facility] [address] [place] [phone] 12/19/2023 Feng Stynowick Radiculopathy, lumba r region M54.16 [facility] [address] [place] [phone] 12/27/2023 Feng Stynowick Radiculopathy, lumba r region M54.16 ; Sacroiliitis, not elsewhere classified M46.1 ; Spondylosis without myelopathy or radiculopathy, lumbar region M47.816 ; Postlaminectomy syndrome, not elsewhere classified M96.1 ; Other intervertebral disc degeneration, lumbar region M51.36 ; Osseous stenosis of neural canal of lumbar region M99.33 ; 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 and residential (current) use of opiate analgesic Z79.891 [facility] [address] [place] [id number] 01/02/2024 Feng Stynowick Sacroiliitis, not elsewhere classified M46.1 [facility] [address] [place] [phone] 01/25/2024 Feng Stynowick Radiculopathy, lumba r region M54.16 ; Sacroiliitis, not elsewhere classified M46.1 ; Spondylosis without myelopathy or radiculopathy, lumbar region M47.816 ; Postlaminectomy syndrome, not elsewhere classified M96.1 ; Other intervertebral disc degeneration, lumbar region M51.36 ; Osseous stenosis of neural canal of lumbar region M99.33 ; 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 and residential (current) use of opiate analgesic Z79.891 [facility] [address] [place] [phone] 01/29/2024 Feng Stynowick Radiculopathy, lumba r region M54.16 ; Sacroiliitis, not elsewhere classified M46.1 ; Spondylosis without myelopathy or radiculopathy, lumbar region M47.816 ; Postlaminectomy syndrome, not elsewhere classified M96.1 ; Other intervertebral disc degeneration, lumbar region M51.36 ; Osseous stenosis of neural canal of lumbar region M99.33 ; 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 and residential (current) use of opiate analgesic Z79.891 [facility] [address] [place] [phone] 01/29/2024 Feng Stynowick Radiculopathy, lumba r region M54.16 [facility] [address] [place] [phone] 02/06/2024 Feng Stynowick Radiculopathy, lumba r region M54.16 ; Sacroiliitis, not elsewhere classified M46.1 ; Spondylosis without myelopathy or radiculopathy, lumbar region M47.816 ; Postlaminectomy syndrome, not elsewhere classified M96.1 ; Other intervertebral disc degeneration, lumbar region M51.36 ; Osseous stenosis of neural canal of lumbar region M99.33 ; 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 and tank terminal gauger (current) use of opiate analgesic Z79.891 [facility] [address] [place] [phone] 02/16/2024 Feng Stynowick Radiculopathy, lumba r region M54.16 ; Intervertebral disc disorders with radiculopathy, lumbar region M51.16 and Osseous stenosis of neural canal of lumbar region M99.33 [facility] [address] [place] [id number] 02/19/2024 Feng Stynowick Radiculopathy, lumba r region M54.16 [facility] [address] [place] [address] 03/06/2024 Feng Stynowick Radiculopathy, lumba r region M54.16 ; Spondylosis without myelopathy or radiculopathy, lumbar region M47.816 ; Sacroiliitis, not elsewhere classified M46.1 ; Postlaminectomy syndrome, not elsewhere classified M96.1 ; Other intervertebral disc degeneration, lumbar region M51.36 ; Osseous stenosis of neural canal of lumbar region M99.33 ; 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 and residential (current) use of opiate analgesic Z79.891 [facility] [address] [place] [address] [place] [address] 03/18/2024 [facility] [address] [place] [phone] 03/26/2024 Feng Stynchrissyick Spondylosis without myelopathy or radiculopathy, lumbar region M47.816 and Spondylosis without myelopathy or radiculopathy, lumbosacral region M47.817 [facility] [address] [place] [phone] 03/27/2024 Feng Stynowick [facility] [address] [place] [phone] 04/05/2024 Feng Stynowick Radiculopathy, lumba r region M54.16 ; Spondylosis without myelopathy or radiculopathy, lumbar region M47.816 ; Sacroiliitis, not elsewhere classified M46.1 ; Postlaminectomy syndrome, not elsewhere classified M96.1 ; Other intervertebral disc degeneration, lumbar region M51.36 ; Osseous stenosis of neural canal of lumbar region M99.33 ; 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 and tank terminal gauger (current) use of opiate analgesic Z79.891 [facility] [address] [place] [address] 04/26/2024 Feng Stynowick Radiculopathy, lumba r region M54.16 [facility] [address] [place] [phone] 05/03/2024 Feng Stynowick Spondylosis without myelopathy or radiculopathy, lumbar region M47.816 ; Sacroiliitis, not elsewhere classified M46.1 ; Radiculopathy, lumbar region M54.16 ; Postlaminectomy syndrome, not elsewhere classified M96.1 ; Other intervertebral disc degeneration, lumbar region M51.36 ; Osseous stenosis of neural canal of lumbar region M99.33 ; 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 and tank terminal gauger (current) use of opiate analgesic Z79.891 [facility] [address] [place] [phone] 05/10/2024 Feng Stynowick Sacroiliitis, not elsewhere classified M46.1 [facility] [address] [place] [phone] 06/03/2024 Feng Stynowick Sacroiliitis, not elsewhere classified M46.1 ; Radiculopathy, lumbar region M54.16 ; Spondylosis without myelopathy or radiculopathy, lumbar region M47.816 ; Postlaminectomy syndrome, not elsewhere classified M96.1 ; Other intervertebral disc degeneration, lumbar region M51.36 ; Osseous stenosis of neural canal of lumbar region M99.33 ; 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 and residential (current) use of opiate analgesic Z79.891 [facility] [address] [place] [id number] 07/01/2024 Feng Stynowick Sacroiliitis, not elsewhere classified M46.1 ; Radiculopathy, lumbar region M54.16 ; Spondylosis without myelopathy or radiculopathy, lumbar region M47.816 ; Postlaminectomy syndrome, not elsewhere classified M96.1 and tank terminal gauger (current) use of opiate analgesic Z79.891 [facility] [address] [place] [id number] 07/08/2024 Feng Stynowick Radiculopathy, lumba r region M54.16 ; Radiculopathy, lumbosacral region M54.17 and Osseous stenosis of neural canal of lumbar region M99.33 [facility] [address] [place] [id number] 07/08/2024 Feng Stynowick Radiculopathy, lumba r region M54.16 [facility] [address] [place] [id number] 07/30/2024 Feng Stynowick Radiculopathy, lumba r region M54.16 [facility] [address] [place] [address] [place] [address] 07/31/2024 Feng Stynowick Radiculopathy, lumba r region M54.16 ; Radiculopathy, lumbosacral region M54.17 ; Osseous stenosis of neural canal of lumbar region M99.33 ; Sacroiliitis, not elsewhere classified M46.1 and residential (current) use of opiate analgesic Z79.891 [facility] [address] [place] [address] [place] [address] 08/28/2024 Feng Stynowick Radiculopathy, lumba r region M54.16 ; Sacroiliitis, not elsewhere classified M46.1 ; Radiculopathy, lumbosacral region M54.17 ; Osseous stenosis of neural canal of lumbar region M99.33 and tank terminal gauger (current) use of opiate analgesic Z79.891 [facility] [address] [place] [phone] 09/06/2024 Feng Stynowick Sacroiliitis, not elsewhere classified M46.1 [facility] [address] [place] [address], [place] [address] 09/27/2024 Feng Stynowick Sacroiliitis, not elsewhere classified M46.1 ; Spondylosis without myelopathy or radiculopathy, lumbar region M47.816 ; Radiculopathy, lumbar region M54.16 ; Postlaminectomy syndrome, not elsewhere classified M96.1 ; tank terminal gauger (current) use of opiate analgesic Z79.891 ; Radiculopathy, lumbosacral region M54.17 and Spondylosis without myelopathy or radiculopathy, lumbosacral region M47.817 [facility] [address] [place] [phone] 10/09/2024 Feng Stynowick Spondylosis without myelopathy or radiculopathy, lumbar region M47.816 and Spondylosis without myelopathy or radiculopathy, lumbosacral region M47.817 [facility] [address] [place] [phone] 10/10/2024 Feng Stynowick [facility] [address] [place], [place] [address], [place] [address] 10/16/2024 Feng Stynowick Radiculopathy, lumba r region M54.16 [facility] [address] [facility] [place] [address] 10/24/2024 Feng Stynowick Spondylosis without myelopathy or radiculopathy, lumbar region M47.816 ; Postlaminectomy syndrome, not elsewhere classified M96.1 ; Spondylosis without myelopathy or radiculopathy, lumbosacral region M47.817 ; Radiculopathy, lumbar region M54.16 and Radiculopathy, lumbosacral region M54.17 [facility] [address] [facility] [place] [address] 11/11/2024 Feng Stynowick Postlaminectomy syndrome, not elsewhere classified M96.1 ; Radiculopathy, lumbar region M54.16 ; Spondylosis without myelopathy or radiculopathy, lumbar region M47.816 ; Spondylosis without myelopathy or radiculopathy, lumbosacral region M47.817 and Radiculopathy, lumbosacral region M54.17 [facility] [address] [facility] [place] [place] [address] 11/18/2024 Feng Stynowick Radiculopathy, lumba r region M54.16 ; Radiculopathy, lumbosacral region M54.17 and Osseous stenosis of neural canal of lumbar region M99.33 [facility] [address] [facility] [place] [address] 11/21/2024 Feng Stynowick [facility] [address] [facility] [place], [place] [address] 11/21/2024 Feng Stynowick Radiculopathy, lumba r region M54.16 ; Radiculopathy, lumbosacral region M54.17 and Osseous stenosis of neural canal of lumbar region M99.33 ASSESSMENTS Encounter Date Diagnosis Assessment Notes Treatment Notes Treatment Clinical Notes Section Notes 11/29/2023 Radiculopathy, lumbar region (ICD-10 - M54.16) [...] to fully comply with the above. The [facility] PDMP were reviewed and were appropriate 11/29/2023 [...] to fully comply with the above. The [facility] PDMP were reviewed and were appropriate 12/27/2023 [...] comply with the above. The [place] were reviewed and were appropriate 01/29/2024 [...] to fully comply with the above. The [facility] PDMP were reviewed and were appropriate 01/29/2024 [...] comply with the above. The [place] were reviewed and were appropriate 02/06/2024 [...] comply with the above. The [place] were reviewed and were appropriate 03/06/2024 [...] comply with the above. The [place] were reviewed and were appropriate 04/05/2024 Spondylosis without myelopathy or radiculopathy, lumbar region (ICD-10 - M47.816) 04/26/2024 Radiculopathy, lumbar region (ICD-10 - M54.16) 05/03/2024 Spondylosis without myelopathy or radiculopathy, lumbar [...] is agreeable to proceeding at this time. 05/10/2024 Sacroiliitis, not elsewhere classified (ICD-10 - [...] to fully comply with the above. The [facility] PDMP were reviewed and were appropriate 07/01/2024 [...] to fully comply with the above. The [facility] PDMP were reviewed and were appropriate 07/31/2024 [...] comply with the above. The [place] were reviewed and were appropriate 08/28/2024 [...] is agreeable to proceeding at this time. 10/09/2024 Spondylosis without myelopathy or radiculopathy, lumbar region (ICD-10 - M47.816) 10/09/2024 Spondylosis without myelopathy or radiculopathy, 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) 10/16/2024 Radiculopathy, lumbar region (ICD-10 - M54.16) 10/24/2024 Spondylosis without myelopathy or radiculopathy, lumbar [...] comply with the above. The [place] were reviewed and were appropriate 11/11/2024 Postlaminectomy syndrome, not elsewhere classified (ICD-10 [...] comply with the above. The [place] were reviewed and were appropriate 11/11/2024 [...] is agreeable to proceeding at this time. 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) 11/21/2024 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) 11/29/2023 Sacroiliitis, not elsewhere classified (ICD-10 - M46.1) 12/27/2023 Spondylosis without myelopathy or radiculopathy, lumbar region (ICD-10 - M47.816) 01/25/2024 Sacroiliitis, not elsewhere classified (ICD-10 - M46.1) 01/29/2024 Sacroiliitis, not elsewhere classified (ICD-10 - M46.1) 02/06/2024 Spondylosis without myelopathy or radiculopathy, lumbar region (ICD-10 - M47.816) 02/16/2024 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) 03/06/2024 Sacroiliitis, not elsewhere classified (ICD-10 - M46.1) 04/05/2024 Sacroiliitis, not elsewhere classified (ICD-10 - M46.1) 05/03/2024 Radiculopathy, lumbar region (ICD-10 - M54.16) [...] comply with the above. The [place] were reviewed and were appropriate 06/03/2024 [...] comply with the above. 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) 03/06/2024 Postlaminectomy syndrome, not elsewhere classified (ICD-10 - M96.1) 02/06/2024 Postlaminectomy syndrome, not elsewhere classified (ICD-10 - M96.1) 01/29/2024 Spondylosis without myelopathy or radiculopathy, lumbar region (ICD-10 - M47.816) 01/25/2024 Spondylosis without myelopathy or radiculopathy, lumbar region (ICD-10 - M47.816) 11/29/2023 Postlaminectomy syndrome, not elsewhere classified (ICD-10 - M96.1) 12/27/2023 Postlaminectomy syndrome, not elsewhere classified (ICD-10 - M96.1) 11/11/2024 Spondylosis without myelopathy or radiculopathy, 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) 10/24/2024 Radiculopathy, lumbar region (ICD-10 - M54.16) 09/27/2024 Postlaminectomy syndrome, not elsewhere classified (ICD-10 - M96.1) 08/28/2024 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) 07/31/2024 Sacroiliitis, not elsewhere classified (ICD-10 - M46.1) 07/01/2024 Postlaminectomy syndrome, not elsewhere classified (ICD-10 - M96.1) 04/05/2024 Postlaminectomy syndrome, not elsewhere classified (ICD-10 - M96.1) 06/03/2024 Postlaminectomy syndrome, not elsewhere classified (ICD-10 - M96.1) 05/03/2024 Postlaminectomy syndrome, not elsewhere classified (ICD-10 - M96.1) 11/11/2024 Radiculopathy, lumbosacral region (ICD-10 - M54.17) 10/24/2024 Radiculopathy, lumbosacral region (ICD-10 - M54.17) 09/27/2024 residential (current) use of opiate analgesic (ICD-10 - Z79.891) 08/28/2024 residential (current) use of opiate analgesic (ICD-10 - 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) 01/25/2024 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) 01/29/2024 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) 02/06/2024 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) 11/29/2023 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) 03/06/2024 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) 04/05/2024 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 03/06/2024 residential (current) use of opiate analgesic (ICD-10 - 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 Hendrickosn. I have discussed and reviewed all of [...] with Patient and Medical Decision Makin minutes 10/09/2024 Other The patient voiced understanding of [...] AND SAFETY CONCERNS HAVE BEEN ADDRESSED. JL vilas LOW. 10/24/2024 Other The above-named patient was evaluated [...] patient and medical decision making 32 minutes 11/11/2024 Other The above-named patient was evaluated [...] with Patient and Medical Decision Makin minutes 11/21/2024 Other The above-named patient was evaluated [...] Lumbar Spine with and without Cont rast (03350) 04/25/2022 MRI : Lumbar Spine with and without Cont rast (74031) 02/01/2022 XRAY right shoulder 09/09/2020 [facility] 01/03/2022 [facility] 03/29/2022 [facility] 09/16/2022 [facility] 06/01/2023 [facility] 08/28/2023 [facility] 11/29/2023 [facility] 03/06/2024 [facility] 05/31/2024 [facility] 08/27/2024 Next Appt Details Provider Name:Feng bean, 12/25/2024 11:00:00 AM, [address] [place], [address], Insurance Providers Payer Name Payer Address Payer Phone Subscriber Number Group Number Insured Name Patient Relationship to Insured Coverage Start Date Coverage End Date [employer] Claims [address] [address] [place] [address] [id number] MIKE PADGETT Self - patient is the insured 8 MEDICAL (GENERAL) HISTORY Medical History History ICD Code Hypertension Stomach Ulcers Depression Insomnia GERD Anemia Asthma Migraine Surgical History Surgery Date(Month/Year) Pain Pump Removal 2011 Multiple Lumbar Surgeries
--- OUTSIDE RECORDS SUMMARY | 2024-11-25 16:12 | XMS_ITS | Encounter Summary ---
Author Organization [facility] Address [facility] [place] [address] Care Team Providers Care Junior Software Engineer Name Role Phone Dolly Grimes COMPOSITE BOND WORKER Primary Care Provider + [phone] Encounter Details Date Type Department Care Team (Late st Contact Info) Description 11/25/[address] 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 [address] Marisel Delacruz MD [address] [place] [address] 12/02/2024 7:[address] [facility] [place] [address] Rayo Vogel MD [address] [facility] [address] [place] [address] 12/02/2024 9:[address] [facility] [address] [place] [address] Rayo Vogel MD [address] [place] [address] Scheduled Orders Name Type Priority Associated Diagnoses Orde r Schedule PARTIAL THROMBOPLASTIN TIME,PTT Lab Routine CKD (chronic kidney disease) Expected: 12/02/2024, Expires: 11/25/2025 PROTIME/INR, VENOUS Lab Routine CKD (chronic kidney disease) Expected: 12/02/2024, Expires: 11/25/2025 CBC W/DIFF AUTOMATED Lab Routine CKD (chronic kidney disease) 1 Occurrences starting 11/25/2024 until 11/25/2025 documented as of this encounter Visit Diagnoses Diagnosis CKD (chronic kidney disease)- Primary Chronic kidney disease, unspecified documented in this encounter Care Teams Junior Software Engineer Relationship Specialty Start Date End Date Dolly Grimes FNP [address] [place] [address] [address] [place] [address] PCP - General Nurse Practitioner Family 05/21/24 documented as of this encounter
--- OUTSIDE RECORDS SUMMARY | 2024-11-25 16:12 | XMS_ITS | Clinical Summary ---
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 Gender Identity Not on file Sexual Orientation Not on file Last Filed Vital Signs Vital Sign Reading Time Taken Comments Blood Pressure 120/64 01/04/2017 12:58 PM DIRECTOR CONTENT MARKETING Pulse 65 01/04/2017 12:58 PM DIRECTOR CONTENT MARKETING Temperature 36.5 C (97.7 F) 01/04/2017 12:58 PM DIRECTOR CONTENT MARKETING Respiratory Rate 18 01/04/2017 12:58 PM DIRECTOR CONTENT MARKETING Oxygen Saturation 97% 01/04/2017 12:58 PM DIRECTOR CONTENT MARKETING Inhaled Oxygen Concentration - - Weight 62.6 kg (138 lb) 01/04/2017 12:58 PM DIRECTOR CONTENT MARKETING Height 152.4 cm (5') 01/04/2017 12:58 PM DIRECTOR CONTENT MARKETING Body Mass Index 26.95 01/04/2017 12:58 PM DIRECTOR CONTENT MARKETING Plan of Treatment Health Maintenance Due Date Last Done Comments Hepatitis C Virus (HCV) Screening 1955 TdaP Immunization 1955 Cologuard 05/13/1999 Colonoscopy 05/13/1999 Colorectal Cancer Screening 05/13/1999 Immunochemical Fecal Occult Blood 05/13/1999 Pneumococcal Immunization (50+ years) (1 of 1 - PCV) 2004 Zoster Immunization (1 of 2) 2004 Medicare Initial AWV [id number] 11/26/2016 Influenza Immunization (#1) 10/21/202412/21, 12/23/2011, 12/21/2010, Additional history exists SARS-COV-2 Immunization ( season) 2024 05/22/2020, 05/01/2020 Respiratory Syncytial Virus (RSV) Immunization [...] contacted. Electronically signed by: Nathan clark/suzie:05/15/2017 14:18:37 Monorail Operator: Cher CARPENTER(Tigre)(Aurelia), [facility] letter sent: Additional Imaging Reading location: [...] signed by: Nathan Rojas M.D. bs/suzie:05/15/2017 14:18:37 Monorail Operator: Cher LR)(Aurelia), [facility] letter sent: Additional Imaging Reading location: [facility] BI-RADS: 0 Additional Imaging Evaluation Needed [facility] Mario Britt MD IMG MAMMO ORDERABLES Kena l Result from Last 3 Months or Most Recently Relevant to Health Maintenance Insurance MEDICARE C HUMANA
[2024-11-25 17:07] LABS: Anion Gap 8 mmol/L (4-12); Blood Urea Nitrogen 27 mg/dL (7-17); Calcium 8.1 mg/dL (8.4-10.2); Carbon Dioxide 21 mmol/L (22-30); Chloride 106 mmol/L (98-107); Estimated Glomerular Filt Rate 34; Glucose 89 mg/dL (65-110); Potassium 5.9 mmol/L (3.4-5.0); Sodium 135 mmol/L (137-145)
== END 2024-11-25 15:49 | disposition home or self-care (01) ==
LOC: ANHLAB 15:50
PROVIDERS: PCP Nurse Practitioner Family; Visit Provider Internal Medicine Nephrology
DX: N18.32 Chronic kidney disease, stage 3b (principal)
CPT/HCPCS: 36415; 80048

== ENCOUNTER 2024-12-17 16:13 | Outpatient (CLI) | payer MEDICARE, SELFPAY ==
--- OUTSIDE RECORDS SUMMARY | 2024-09-27 05:00 | XMS_ITS ---
Author Organization [facility] Address [address] [place] [address] Kristine BirchVIDHYA [address] Care Team Providers Care Online Banking Specialist Name Role Phone Anabella CARMEN, Joy Primary Care Provider Unavailable Feng Hendrickson Unavailable [phone] ALLERGIES Allergen (clinical drug ingredient) Drug/Non Drug Allergy documented on EMR Reaction Allergy Type Onset Date Status aripiprazole Aripiprazole nausea and vomiting Drug Allergy Active clindamycin Clindamycin diarrhea Drug Allergy Act lucian fentanyl Fentanyl nausea Drug Allergy Active morphine Morphine rash/itching Drug Allergy Acti ve REASON FOR VISIT Follow Up, Right = Left Low Back Pain MEDICATIONS Medication SIG (Take, Route, Frequency, Duration) Notes Start Date End Date Status Donepezil HCl 5 MG TAKE 1 TABLET BY ROYA TH EVERYDAY AT BEDTIME Oral for 90 Active Chlorthalidone 25 MG TAKE 1 TABLET BY MO UTH EVERY DAY Oral for 90 Active NIFEdipine ER Osmotic Release 30 MG 30 MG ORALLY DAILY Oral for 90 Active tiZANidine HCl 4 MG 1 tablet as needed O ral 3 x day muscle spasm for 30 days 12/13/2019 Active Irbesartan 150 MG TAKE 1 TABLET BY ROYA TH EVERY DAY Oral for 90 Active Fluticasone-Salmeterol 250-50 MCG/ACT Inhalation for 30 Active Prolia 60 MG/ML Subcutaneous for 180 Active Losartan Potassium-HCTZ 100-25 MG TAKE 1 TABLET BY MOUTH EVERY DAY Oral for 90 Active Albuterol Sulfate HFA 108 (90 Base) MCG/ACT Inhalation for 16 Activ e Spironolactone 25 MG Oral for 90 Active hydrOXYzine HCl 25 [...] patient is responsive or EMS arrives Active Amphetamine-Dextroamphetami ne 20 MG TAKE 1 TABLET BY MOUTH [...] needed for pain for 30 days Active ZyPREXA 5 MG 1 tablet Orally Once a day Active amLODIPine Besylate 5 MG 1 tablet Oral Once a day Active Lidocaine-Prilocaine 2.5-2.5 % as directed External Active Fluticasone Propionate 50 MCG/ACT 1 spray in each nostril Nasal Twice a day Active HYDROcodone-Acetaminophen 10-325 MG 1 tablet Orally every 4 to 6 hrs as needed for severe pain (max 5x/day) for 30 days 09/27/2024 Active Vitamin D3 1000 UNIT 1 capsule [...] drug abuse. VITAL SIGNS Blood pressure systolic 148 mm Hg 09/28/19 25 Blood pressure diastolic 76 mm Hg 025 Heart Rate 50 /min 09/27/2024 Respiratory Rate 16 /min 09/27/2024 Height 60 in 09/27/2024 Weight 133 lbs 09/27/2024 BMI 25.97 kg/m2 09/27/2024 Encounters Encounter Location Date Provider Diagnosis [facility] [address] [facility] [address] 09/27/2024 Feng Chunvikas Sacroiliitis, not elsewhere classified M46.1 ; Spondylosis without myelopathy or radiculopathy, lumbar region M47.816 ; Radiculopathy, lumbar region M54.16 ; Postlaminectomy syndrome, not elsewhere classified M96.1 ; half-way (current) use of opiate analgesic Z79.891 ; Radiculopathy, lumbosacral region M54.17 and Spondylosis without myelopathy or radiculopathy, lumbosacral region M47.817 ASSESSMENTS Encounter Date Diagnosis Assessment Notes Treatment Notes Treatment Clinical Notes Section Notes 09/27/2024 Sacroiliitis, not elsewhere classified (ICD-10 - M46.1) 09/27/2024 Spondylosis without myelopathy or radiculopathy, lumbar region [...] is agreeable to proceeding at this time. 09/27/2024 Radiculopathy, lumbar region (ICD-10 - M54.16) The [...] to fully comply with the above. 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 The [place] PDMP were reviewed and were appropriate Other [...] minutes Next Appt Details Follow Up: bilateral L3-5 RF A, Reason: Provider Name:Feng Geovani bean, 12/25/2024 11:00:00 AM, [address] [place] [address], [address], Progress Notes * Examination Category Sub-Category Detail Notes Category Not es Examination/ Pre-Anesthesia Assessment General: The patient is alert and leeanna ented X 3 in moderate distress secondary to pain UDS 08/27/24: compliant for perscribed meds also positive for [...] axial low back pain. Gonzalo's, Gaenslen's and Pattison's tests are positive bilaterally. There is severe [...]
--- OUTSIDE RECORDS SUMMARY | 2024-10-09 06:00 | XMS_ITS ---
Author Organization [facility] Address [address] [place] [address] [place] [address] Care Team Providers Care Bearingizer Name Role Phone Anabella CARMEN, Joy Primary Care Provider Unavailable Feng Hendrickson Unavailable [phone] ALLERGIES Allergen (clinical drug ingredient) Drug/Non Drug [...] MG ORALLY DAILY Oral for 90 Active Irbesartan 150 MG TAKE 1 TABLET BY ROYA TH EVERY DAY Oral for 90 Active Chlorthalidone 25 MG TAKE 1 TABLET BY [place] UTH EVERY DAY Oral for 90 Active Spironolactone 25 MG Oral for 90 Active Fluticasone-Salmeterol 250-50 MCG/ACT [...] Base) MCG/ACT Inhalation for 16 Activ e Amphetamine-Dextroamphetami ne 20 MG TAKE 1 TABLET [...] MOUTH EVERY DAY Oral for 90 Active Fluticasone Propionate 50 MCG/ACT 1 spray in each nostril Nasal Twice a day Active rOPINIRole HCl 0.5 MG 1 tablet 1 to 3 ho urs before bedtime Orally Once a day Active Voltaren 1 % apply 4 grams to ji nful joint(s) Transdermal 4x/day as needed for pain for 30 days Active Vitamin D3 1000 UNIT 1 capsule Orally On a day 09/25/2017 Active ZyPREXA 5 MG 1 tablet Orally Once a day Active amLODIPine Besylate 5 MG 1 tablet Oral Once a day Active Lidocaine-Prilocaine 2.5-2.5 % as directed External Active ProAir HFA 108 (90 Base) MCG/ACT 2 puffs as needed Inhalation every 6 hrs 09/25/2017 Active tiZANidine HCl 4 MG 1 tablet as needed O ral 3 x day muscle spasm for 30 days 12/13/2019 Active HYDROcodone-Acetaminophen 10-325 MG 1 tablet Orally every 4 to 6 hrs as needed for severe pain (max 5x/day) for 30 days 09/27/2024 Active Omeprazole 20 MG 1 capsule 30 minutes before morning meal Oral Once a day Active FLUoxetine HCl 40 MG 1 capsule Oral Once a day Active traZODone HCl 100 MG 1 tablet at bedtime Oral Once a day Active VITAL SIGNS Blood pressure systolic 128 mm Hg 10/10/19 25 Blood pressure diastolic 77 mm Hg 025 Heart Rate 58 /min 10/09/2024 Respiratory Rate 16 /min 10/09/2024 Height 60 in 10/09/2024 Weight 133 lbs 10/09/2024 BMI 25.97 kg/m2 10/09/2024 Oximetry 97 % 10/09/2024 Post Op Vitals: BP 162/88, H R 56, RR 16, Spo2 97%Discharged to home with self, ambulatory without assistance at baseline, and in no acute distress. Encounters Encounter Location Date Provider Diagnosis [facility] [address] [place] [address] 10/09/2024 Feng Hendrickson Spondylosis without myelopathy or radiculopathy, lumbar region M47.816 and Spondylosis without myelopathy or radiculopathy, lumbosacral region M47.817 ASSESSMENTS Encounter Date Diagnosis Assessment Notes Treatment Notes Treatment Clinical Notes Section Notes 10/09/2024 Spondylosis without myelopathy or radiculopathy, lumbar region (ICD-10 - M47.816) 10/09/2024 Spondylosis without myelopathy or radiculopathy, 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) 10/09/2024 Other The patient voiced understanding of the [...] for infection: Implements aseptic technique, protects from cross-contaminatio n, performs skin preparations. Pain/Discomfort: Patient verbalizes acceptable level of pain relief prior to discharge and the ability to engage in desired activity. I HAVE REVIEWED THE PATIENT'S MEDICATION LIST AND HAVE RECONCILED THE ABOVE MEDICATIONS. PATIENT GOALS AND SAFETY CONCERNS HAVE BEEN ADDRESSED. RN initials LOW. PLAN OF TREATMENT Treatment Notes Assessment Notes [...] SAFETY CONCERNS HAVE BEEN ADDRESSED. RN initials JW. 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 X- ray time:?48 secondsInstrumentation for this procedure came from load number(s): 201 [facility] First Critical Point Ashley ent identified by verbal and ID band. Surgical site marked. Assessement of allergies, airway and aspiration risk. Assessed if patient is on anticoagulant. Operataive Consent signed. Patient has discussed procedure with physician ANA MICHAUD 10/09/2024 10:41:55 AM > Second Critical Point TIME OUT: Confirm patient identity, procedure and surgical incision site. Patient in proper position and safety straps placed appropriately. ASA score:2 Fire Risk Score:2. Alcohol based prep solution had significant time for fumes to dissipate. Confirm surgical team cdl driver and roles. Anticipated critical events. Essential imaging displayed as appropriate. Fluoroscopy precautions taken if applicable. Equipment and supplies in room. Verify patient is not if applicable ANA MICHAUD 10/09/2024 10:41:57 AM > Third Critical Point SAFE SURGERY [...] Patient denies complaints or questions ANA MICHAUD 10/09/2024 11:29:04 AM > Progress Notes * Examination Category [...] axial low back pain. Gonzalo's, Gaenslen's and [place]'s tests are positive bilaterally. There is severe [...]
--- OUTSIDE RECORDS SUMMARY | 2024-10-10 09:49 | XMS_ITS ---
Author Organization [facility] Address [address] [facility] [place] [address] Care Team Providers Care Business Systems Consultant Name Role Phone Anabella CARMEN, Joy Primary Care Provider Unavailable Feng Hendrickson Unavailable [phone] REASON FOR VISIT Post Procedure Follow Up Call Encounters Encounter Location Date Provider Diagnosis [facility] [address] [place] [address] 10/10/2024 Feng Hendrickson PLAN OF TREATMENT Next Appt Details Provider Name:Feng bean, 12/25/2024 11:00:00 AM, [address] [facility] [place], [address],
--- OUTSIDE RECORDS SUMMARY | 2024-10-16 09:25 | XMS_ITS ---
Author Organization [facility] Address [address] [place] [address] [place] [address] Care Team Providers Care Director Of Teacher Education Name Role Phone Anabella CARMEN, Joy Primary Care Provider Unavailable Feng Hendrickson Unavailable [phone] MEDICATIONS Medication SIG (Take, Route, Fr equency, Duration) Notes Start Date End Date Status tiZANidine HCl 4 MG 1 tablet as needed O ral 3 x day muscle spasm for 30 days 12/13/2019 Active Encounters Encounter Location Date Provider Diagnosis [facility] [address] [place] [address] [place] [address] 10/16/2024 Feng Hendrickson Radiculopathy, lumbar region M54.16 [...] 12/13/2019 Next Appt Details Provider Name:Feng bean, 12/25/2024 11:00:00 AM, [address] [place], [address],
--- OUTSIDE RECORDS SUMMARY | 2024-10-24 05:30 | XMS_ITS ---
Author Organization [facility] Address [address] [place] [address] [place] [address] Care Team Providers Care Hvac Maintenance Technician Name Role Phone Anabella CARMEN, Joy Primary Care Provider Unavailable Feng Hendrickson Unavailable [phone] ALLERGIES Allergen (clinical drug ingredient) Drug/Non Drug [...] Provider Diagnosis [facility] [address] [facility] [place] [address] 10/24/2024 Feng Hendrickson Spondylosis without myelopathy or [...] to fully comply with the above. The [place] and [place] PDMP were reviewed and were appropriate 10/24/2024 [...] to fully comply with the above. The [place] PDMP were reviewed and were appropriate Other [...] [facility], Reas on: Provider Name:Feng Geovani bean, 12/25/2024 11:00:00 AM, [address] [place], [address], Progress Notes * Examination Category Sub-Category Detail [...] axial low back pain. Gonzalo's, Gaenslen's and [place]'s tests are positive bilaterally. There is severe [...]
--- OUTSIDE RECORDS SUMMARY | 2024-11-11 08:00 | XMS_ITS ---
Author Organization [facility] Address [address] [place] [address] VIDHYA Johnson [address] Care Team Providers Care Biofuels Product Development Manager Name Role Phone Anabella CARMEN, Joy Primary Care Provider Unavailable Feng Hendrickson Unavailable [phone] ALLERGIES Allergen (clinical drug ingredient) Drug/Non Drug [...] Date Provider Diagnosis [facility] [address] [place] [address] 11/11/2024 Feng Emeka Postlaminectomy syndrome, not elsewhere [...] comply with the above. The [place] and [place] PDMP were reviewed and were appropriate 11/11/2024 [...] comply with the above. The [place] PDMP were reviewed and were appropriate Radiculopathy, [...] L4-5 TF E, Reason: Provider Name:Feng bean, 12/25/2024 11:00:00 AM, [address] [place], [address], Progress Notes * Examination Category [...] axial low back pain. Gonzalo's, Gaenslen's and [place]'s tests are positive bilaterally. There is severe [...]
--- OUTSIDE RECORDS SUMMARY | 2024-11-18 05:45 | XMS_ITS ---
Author Organization [facility] Address [address] [place] [address] VIDHYA Johnson [address] Care Team Providers Care Spot Facer Name Role Phone Anabella CARMEN, Joy Primary Care Provider Unavailable Feng Hendrickson Unavailable [phone] ALLERGIES Allergen (clinical drug ingredient) Drug/Non Drug [...] Location Date Provider Diagnosis [facility] [address] [place] [phone] 11/18/2024 Feng Hendrickson Radiculopathy, lumbar region M54.16 [...] F/U S CHEDULED, Reason: Provider Name:Feng bean, 12/25/2024 11:00:00 AM, [address] [place] [address], [phone], Procedure Notes * Category Sub-Category Detail Notes [...] 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 X-ray time: 17 seconds Progress Notes [...] axial low back pain. Gonzalo's, Gaenslen's and [place]'s tests are positive bilaterally. There is severe [...]
--- OUTSIDE RECORDS SUMMARY | 2024-11-21 06:00 | XMS_ITS ---
Author Organization [facility] Address [address] [facility] [address] [place] [address] Care Team Providers Care Game Technician Name Role Phone Anabella CARMEN, Joy Primary Care Provider Unavailable Feng Hendrickson Unavailable [phone] REASON FOR VISIT FOLLOW UP Encounters Encounter Location Date Provider Diagnosis [facility] [address] [facility] [place] [address] 11/21/2024 Feng Hendrickson PLAN OF TREATMENT Next Appt Details Provider Name:Feng bean, 12/25/2024 11:00:00 AM, [address] [facility] [place] [facility] [place], [address],
--- OUTSIDE RECORDS SUMMARY | 2024-11-21 09:30 | XMS_ITS ---
Author Organization [facility] Address [address] [place] [address] VIDHYA Johnson [address] Care Team Providers Care Lower School Spanish Teacher Name Role Phone Anabella CARMEN, Joy Primary Care Provider Unavailable Feng Hendrickson Unavailable [phone] ALLERGIES Allergen (clinical drug ingredient) Drug/Non Drug [...] Location Date Provider Diagnosis [facility] [address] [place] [address] [place] [address] 11/21/2024 Feng Hendrickson Radiculopathy, lumbar region M54.16 [...] Provider Name:Feng Geovani bean, 12/25/2024 11:00:00 AM, [address] [place] [address], [phone], Progress Notes * Examination Category Sub-Category [...] axial low back pain. Gonzalo's, Gaenslen's and [place]'s tests are positive bilaterally. There is severe [...]
--- OUTSIDE RECORDS SUMMARY | 2024-12-02 08:00 | XMS_ITS ---
Author Organization [facility] Address [address] [facility] [place] [address] Care Team Providers Care Education Reviewer Name Role Phone Anabella CARMEN, Joy Primary Care Provider Unavailable Feng Hendrickson Unavailable [phone] REASON FOR VISIT refill MEDICATIONS Medication SIG (Take, Route, Fr equency, Duration) Notes Start Date End Date Status tiZANidine HCl 4 MG 1 tablet as needed O ral 3 x day muscle spasm for 30 days 12/13/2019 Active Encounters Encounter Location Date Provider Diagnosis [facility] [address] [facility] [place] [address] 12/02/2024 Feng Hendrickson Radiculopathy, lumbar region M54.16 [...] Provider Name:Feng bean, 12/25/2024 11:00:00 AM, [address] [place], [address],
--- NOTE | ~2024-12-17 | XR_ITS ---
XR lumbar spine 2-3V Indication: M54.9 - Dorsalgia, unspecified Comparison: None Findings: No acute fracture or subluxation, fixation noted of the sacroiliac joints bilaterally. Moderate osteopenia noted. Moderate loss of disc height at L4-5 and L5-S1. Soft tissues unremarkable Impression: No acute abnormality. Reviewed, dictated and finalized at location P. Impression: No acute abnormality.
--- NOTE | ~2024-12-17 | XR_ITS ---
XR thoracic spine 2V Indication: M54.9 - Dorsalgia, unspecified Comparison: None Findings: Moderate loss of vertebral height with remote compression fractures of T12 and T11, no acute fracture or subluxation. Kyphosis noted of the upper thoracic spine. Moderate osteopenia. Moderate loss of disc height throughout Soft tissues unremarkable Impression: No acute abnormality. Reviewed, dictated and finalized at location P. Impression: No acute abnormality.
--- OUTSIDE RECORDS SUMMARY | 2024-12-17 17:50 | XMS_ITS | Clinical Summary ---
Author Organization [employer] [facility] Address [address] [place] [address] Care Team Providers Care Machine Sand Mixer Name Role Phone Unavailable Primary Care Provider [...] 08/26/2024 Active fluticasone propionate (FLONASE) 50 mcg/spray [place], Suspension nasal inhaler 2 times daily. Active [...] Encounters Date Type Department Care Team Description 12/11/2024 External Device Data [facility]STRACTION Provider, Abstract 12/10/2024 External Device Data [facility] Provider, Abstract 11/12/2024 External Device Data [facility] Provider, Abstract 11/05/2024 External Device Data [facility] Provider, Abstract 10/29/2024 External Device Data [facility] Provider, Abstract 09/24/2024 2:15 PM CDT Office Visit [facility] [address] [place] [address] Lazaro Jefferson MD Non-Hodgkin's lymphoma of spleen, unspecified non-Hodgkin lymphoma type (CMS/HCC) (Primary Dx) 09/23/2024 Orders Only [facility] [address] [place] [address] Lazaro Jefferson MD from Last 3 Months [...] on file 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
--- OUTSIDE RECORDS SUMMARY | 2024-12-17 17:51 | XMS_ITS | Clinical Summary ---
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 Gender Identity Not on file Sexual Orientation Not on file Last Filed Vital Signs Vital Sign Reading Time Taken Comments Blood Pressure 120/64 01/04/2017 12:58 PM SPECTROSCOPIST Pulse 65 01/04/2017 12:58 PM SPECTROSCOPIST Temperature 36.5 C (97.7 F) 01/04/2017 12:58 PM SPECTROSCOPIST Respiratory Rate 18 01/04/2017 12:58 PM SPECTROSCOPIST Oxygen Saturation 97% 01/04/2017 12:58 PM SPECTROSCOPIST Inhaled Oxygen Concentration - - Weight 62.6 kg (138 lb) 01/04/2017 12:58 PM SPECTROSCOPIST Height 152.4 cm (5') 01/04/2017 12:58 PM SPECTROSCOPIST Body Mass Index 26.95 01/04/2017 12:58 PM SPECTROSCOPIST Plan of Treatment Health Maintenance Due Date [...] contacted. Electronically signed by: Nathan clark/suzie:05/15/2017 14:18:[address] Clerk: Cher CARPENTER(Tigre)(Aurelia), [facility] letter sent: Additional Imaging Reading location: [facility] BI-RADS: 0 Additional Imaging [...] signed by: Nathan Rojas M.D. bs/suzie:05/15/2017 14:18:[address] Clerk: Cher LR)(Aurelia), [facility] letter sent: Additional Imaging Reading location: [facility] BI-RADS: 0 Additional Imaging Evaluation Needed [facility] Mario Britt MD IMG MAMMO ORDERABLES Kena l Result from Last 3 Months or Most Recently Relevant to Health Maintenance Insurance MEDICARE C HUMANA
--- OUTSIDE RECORDS SUMMARY | 2024-12-17 17:52 | XMS_ITS | Patient Health Record ---
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 Name Role Phone Anabella CARMEN, Joy Primary Care Provider Unavailable Feng Hendrickson Unavailable [phone] ALLERGIES Allergen (clinical drug ingredient) Drug/Non Drug Allergy documented on EMR Reaction Allergy Type Onset Date Status aripiprazole Aripiprazole nausea and vomiting Drug Allergy Active clindamycin Clindamycin diarrhea Drug Allergy Act lucian fentanyl Fentanyl nausea Drug Allergy Active morphine Morphine rash/itching Drug Allergy Acti ve RESULTS Component Value Reference Range Notes [facility] Results (Not yet reviewed by provider) Interpretation: Performing Lab:[id number] [facility] [address] [address] [facility] [address] Angelika Garcia MD Notes/Report: Acetyl fentanyl: Fentanyl [...] 100 ng/mL Tramadol Quantification negative 100 ng/mL T-mlyhrdcsl-qimbnkfr Quantification negative 100 n g/mL L-Ksrvasdtv-Eeytsqay Quantification negative 100 n g/mL Alpha-Hydroxyalprazolam Quantification negative 20 ng/mL 7-Ujvip-Fhdstmvpyn Quantification negative 20 ng/m L Lorazepam Quantification negative 40 ng/mL Nordiazepam Quantification negative 40 ng/mL Temazepam Quantification negative 50 ng/mL Oxazepam Quantification negative 40 ng/mL Amphetamine Quantification positive-> 93274 100 ng/mL Methamphetamine Quantification negative 100 ng/mL [...] Mitragynine (Kratom alkaloid) Quantification negative 1 ng/mL 8-QZ-Aqygpwjsynh (Kratom alk aloid) Quantification negative 1 ng/mL Ethyl Glucuronide Quantification negative 500 ng/m L Ethyl Sulfate Quantification negative 500 ng/mL [facility] Results (Not yet reviewed by provider) Interpretation: Performing Lab:[id number] [facility] [address] [address] [facility] [address] Angelika Garcia MD Notes/Report: Acetyl fentanyl: Fentanyl [...] 100 ng/mL Tramadol Quantification negative 100 ng/mL K-nmwaavanf-jxqloxsp Quantification negative 100 n g/mL E-Wdzkvoqij-Wsihdvcl Quantification negative 100 n g/mL Alpha-Hydroxyalprazolam Quantification negative 20 ng/mL 5-Uzsdr-Yvjtpqlkci Quantification negative 20 ng/m L Lorazepam Quantification [...] Mitragynine (Kratom alkaloid) Quantification negative 1 ng/mL 9-SC-Ehkepnksmzv (Kratom alk aloid) Quantification negative 1 ng/mL Ethyl Glucuronide Quantification negative 500 ng/m L Ethyl Sulfate Quantification negative 500 ng/mL [facility] Results (Not yet reviewed by provider) Interpretation: Performing Lab:[id number] [facility] [address] [address] [facility] [address] Angelika Garcia MD Notes/Report: Codeine negative 1 ng/mL Morphine negative 1 ng/mL Hydrocodone positive-120.252 1 ng/mL Norhydrocodone Quantification positive-8.450 2 ng/mL Hydromorphone negative 1 ng/mL Oxycodone negative 1 ng/mL Noroxycodone Quantification negative 2 ng/mL Oxymorphone negative 1 ng/mL Fentanyl Quantification negative 0.2 ng/mL Norfentanyl Quantification negative 1 ng/mL Methadone negative 2 ng/mL EDDP (Methadone metabolite) negative 2 ng/mL Tramadol Quantification negative 5 ng/mL A-Usqgotuhr-Opdgdvga Quantification negative 5 ng/ mL Alprazolam negative [...] TWICE A DAY Oral for 90 Active tiZANidine HCl 4 MG 1 tablet as needed Oral 3 x day muscle spasm for 30 days 12/13/2019 Active [facility] D3 50 MCG (2000 UT) [...] 1 tablet Oral Once a day Active Rosuvastatin Calcium 20 MG TAKE 1 [...] support system with her uncle and brother. 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 She is and has 2 children. 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 She is and has 2 children. 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 She is and has 2 children. 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 She is and has 2 children. 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 She is and has 2 children. 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 She is and has 2 children. 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 She is and has 2 children. 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 She is and has 2 children. 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 She is and has 2 children. 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 She is and has 2 children. 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 She is and has 2 children. 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 [employer] Operator The patient is disabled and last worked [...] (F40.231) Active confirmed Fear of medical treatment (807008782) Problem Brachial plexus disorders (G54.0) Active confirmed Brachial p cassandra disorder (3675736) Problem Chronic pain syndrome (G89.4) Active confirmed Chronic ji n syndrome (769765782) Problem Unilateral primary osteoarthritis, left knee (M17.12) Active confirmed Osteoarth ritis of knee (726374306) Problem Unspecified osteoarthritis, unspecified site (M19.90) Active confirmed Osteoarthritis (953927419) Problem Pain in right shoulder (M25.511) Active confirmed Pain of r ight shoulder region (finding) (7246259802) Problem Pain in left shoulder (M25.512) Active confirmed Shoulder joint pain (848937138) Problem Sacroiliitis, not elsewhere classified (M46.1) Active confirmed Solitary sacroiliitis (189146577) Problem Spondylosis without myelopathy or radiculopathy, lumbar region (M47.816) Active confirmed Lumbosacral spondylosis without myelopathy (28759521) Problem Spondylosis without myelopathy or radiculopathy, lumbosacral region (M47.817) Active confirmed Lumbosacral spondylosis without myelopathy (disorder) (29413088) Problem Intervertebral disc disorders with radiculopathy, lumbar 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) Active confirmed Radiculopathy due to lumbar intervertebral disc disorder (126834285858215 ) L4-5 HNP Problem Other intervertebral disc degeneration, 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 confirmed Degeneration of lumbar intervertebral disc (44621285) Problem Radiculopathy, lumbar region (M54.16) Active confirmed Lumbar radiculopathy (529648225) Problem Radiculopathy, lumbosacral region (M54.17) Active confirmed Lumbosacral radiculopathy (4132545) Problem Postlaminectomy syndrome, not elsewhere classified (M96.1) Active confirmed Post-lami nectomy syndrome (70547993) Problem Osseous stenosis of neural canal 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) Active confirmed Spinal stenosis of lumbar region (44152660) Problem Intervertebral disc stenosis of neural canal of lumbar region (M99.53) Active confirmed Spinal stenosis of lumbar region (52252412) Problem 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 (Z79.01) Active confirmed Long-term current use of anticoagulant (480826835) Problem stonemason helper (current) use of opiate analgesic (Z79.891) Active confirmed High risk drug monitoring status (227970320) Problem Myalgia, other site (M79.18) Active confirmed Muscle pain (31517235) VITAL SIGNS Heart Rate 96 /min 11/21/2024 [...] Location Date Provider Diagnosis [facility] [address] [place] [phone] 12/19/2023 Feng Stynowick Radiculopathy, lumba r region M54.16 [facility] [address] [place] [phone] 12/27/2023 Feng Stynowick Radiculopathy, lumba r region M54.16 ; Sacroiliitis, not elsewhere classified M46.1 ; Spondylosis without myelopathy or radiculopathy, lumbar region M47.816 ; Postlaminectomy syndrome, not elsewhere classified M96.1 ; Other intervertebral disc degeneration, lumbar region M51.36 ; Osseous stenosis of neural canal of lumbar region M99.33 ; 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 and prison (current) use of opiate analgesic Z79.891 [facility] [address] [place] [address] 01/02/2024 Feng Stynowick Sacroiliitis, not elsewhere classified M46.1 [facility] [address] [place] [phone] 01/25/2024 Feng Stynowick Radiculopathy, lumba r region M54.16 ; Sacroiliitis, not elsewhere classified M46.1 ; Spondylosis without myelopathy or radiculopathy, lumbar region M47.816 ; Postlaminectomy syndrome, not elsewhere classified M96.1 ; Other intervertebral disc degeneration, lumbar region M51.36 ; Osseous stenosis of neural canal of lumbar region M99.33 ; 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 and prison (current) use of opiate analgesic Z79.891 [facility] [address] [place] [address] 01/29/2024 Feng Stynowick Radiculopathy, lumba r region M54.16 ; Sacroiliitis, not elsewhere classified M46.1 ; Spondylosis without myelopathy or radiculopathy, lumbar region M47.816 ; Postlaminectomy syndrome, not elsewhere classified M96.1 ; Other intervertebral disc degeneration, lumbar region M51.36 ; Osseous stenosis of neural canal of lumbar region M99.33 ; 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 and prison (current) use of opiate analgesic Z79.891 [facility] [address] [place] [phone] 01/29/2024 Feng Stynowick Radiculopathy, lumba r region M54.16 [facility] [address] [place] [address] 02/06/2024 Feng Stynowick Radiculopathy, lumba r region M54.16 ; Sacroiliitis, not elsewhere classified M46.1 ; Spondylosis without myelopathy or radiculopathy, lumbar region M47.816 ; Postlaminectomy syndrome, not elsewhere classified M96.1 ; Other intervertebral disc degeneration, lumbar region M51.36 ; Osseous stenosis of neural canal of lumbar region M99.33 ; 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 and stonemason helper (current) use of opiate analgesic Z79.891 [facility] [address] [place] [phone] 02/16/2024 Feng Stynowick Radiculopathy, lumba r region M54.16 ; Intervertebral disc disorders with radiculopathy, lumbar region M51.16 and Osseous stenosis of neural canal of lumbar region M99.33 [facility] [address] [place] [phone] 02/19/2024 Feng Stynowick Radiculopathy, lumba r region M54.16 [facility] [address] [place] [phone] 03/06/2024 Feng Stynowick Radiculopathy, lumba r region M54.16 ; Spondylosis without myelopathy or radiculopathy, lumbar region M47.816 ; Sacroiliitis, not elsewhere classified M46.1 ; Postlaminectomy syndrome, not elsewhere classified M96.1 ; Other intervertebral disc degeneration, lumbar region M51.36 ; Osseous stenosis of neural canal of lumbar region M99.33 ; 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 and stonemason helper (current) use of opiate analgesic Z79.891 [facility] [address] [place] [address] [place] [address] 03/18/2024 Feng Hendrickson [facility] [address] [place] [address], [place] [address] 03/26/2024 Feng winifredvikas Spondylosis without myelopathy or radiculopathy, lumbar region M47.816 and Spondylosis without myelopathy or radiculopathy, lumbosacral region M47.817 [facility] [address] [place] [address] [place] [address] 03/27/2024 Feng Stwinifredchrissyick [facility] [address] [place] [phone] 04/05/2024 Feng Stjeffick Radiculopathy, lumba r region M54.16 ; Spondylosis without myelopathy or radiculopathy, lumbar region M47.816 ; Sacroiliitis, not elsewhere classified M46.1 ; Postlaminectomy syndrome, not elsewhere classified M96.1 ; Other intervertebral disc degeneration, lumbar region M51.36 ; Osseous stenosis of neural canal of lumbar region M99.33 ; 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 and stonemason helper (current) use of opiate analgesic Z79.891 [facility] [address] [place] [phone] 04/26/2024 Feng winifredchrissyick Radiculopathy, lumba r region M54.16 [facility] [address] [place] [phone] 05/03/2024 Feng Stjeffick Spondylosis without myelopathy or radiculopathy, lumbar region M47.816 ; Sacroiliitis, not elsewhere classified M46.1 ; Radiculopathy, lumbar region M54.16 ; Postlaminectomy syndrome, not elsewhere classified M96.1 ; Other intervertebral disc degeneration, lumbar region M51.36 ; Osseous stenosis of neural canal of lumbar region M99.33 ; 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 and prison (current) use of opiate analgesic Z79.891 [facility] [address] [place] [phone] 05/10/2024 Feng Stynowick Sacroiliitis, not elsewhere classified M46.1 [facility] [address] [facility] [place] [address] 06/03/2024 Feng Stynowick Sacroiliitis, not elsewhere classified M46.1 ; Radiculopathy, lumbar region M54.16 ; Spondylosis without myelopathy or radiculopathy, lumbar region M47.816 ; Postlaminectomy syndrome, not elsewhere classified M96.1 ; Other intervertebral disc degeneration, lumbar region M51.36 ; Osseous stenosis of neural canal of lumbar region M99.33 ; 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 and prison (current) use of opiate analgesic Z79.891 [facility] [address] [facility] [place] [address] 07/01/2024 Feng Stynowick Sacroiliitis, not elsewhere classified M46.1 ; Radiculopathy, lumbar region M54.16 ; Spondylosis without myelopathy or radiculopathy, lumbar region M47.816 ; Postlaminectomy syndrome, not elsewhere classified M96.1 and prison (current) use of opiate analgesic Z79.891 [facility] [address] [facility] [place] [address] 07/08/2024 Feng Stynowick Radiculopathy, lumba r region M54.16 ; Radiculopathy, lumbosacral region M54.17 and Osseous stenosis of neural canal of lumbar region M99.33 [facility] [address] [place] [address] 07/08/2024 Feng Stynowick Radiculopathy, lumba r region M54.16 [facility] [address] [facility] [place] [address] 07/30/2024 Feng Stynowick Radiculopathy, lumba r region M54.16 [facility] [address] [facility] [place] [address] 07/31/2024 Feng Stynowick Radiculopathy, lumba r region M54.16 ; Radiculopathy, lumbosacral region M54.17 ; Osseous stenosis of neural canal of lumbar region M99.33 ; Sacroiliitis, not elsewhere classified M46.1 and prison (current) use of opiate analgesic Z79.891 [facility] [address] [place] [address] [place] [address] 08/28/2024 Feng Stynowick Radiculopathy, lumba r region M54.16 ; Sacroiliitis, not elsewhere classified M46.1 ; Radiculopathy, lumbosacral region M54.17 ; Osseous stenosis of neural canal of lumbar region M99.33 and prison (current) use of opiate analgesic Z79.891 [facility] [address] [place] [address] [place] [address] 09/06/2024 Feng Stynowick Sacroiliitis, not elsewhere classified M46.1 [facility] [address] [place] [address] [place] [address] 09/27/2024 Feng Stynowick Sacroiliitis, not elsewhere classified M46.1 ; Spondylosis without myelopathy or radiculopathy, lumbar region M47.816 ; Radiculopathy, lumbar region M54.16 ; Postlaminectomy syndrome, not elsewhere classified M96.1 ; stonemason helper (current) use of opiate analgesic Z79.891 ; Radiculopathy, lumbosacral region M54.17 and Spondylosis without myelopathy or radiculopathy, lumbosacral region M47.817 [facility] [address] [place] [address] [place] [address] 10/09/2024 Feng Stynowick Spondylosis without myelopathy or radiculopathy, lumbar region M47.816 and Spondylosis without myelopathy or radiculopathy, lumbosacral region M47.817 [facility] [address] [place] [address] [place] [address] 10/10/2024 Feng Stynowick [facility] [address] [place] [address] [place] [address] 10/16/2024 Feng Stynowick Radiculopathy, lumba r region M54.16 [facility] [address] [place] [address] [place] [address] 10/24/2024 Feng Stynowick Spondylosis without myelopathy or radiculopathy, lumbar region M47.816 ; Postlaminectomy syndrome, not elsewhere classified M96.1 ; Spondylosis without myelopathy or radiculopathy, lumbosacral region M47.817 ; Radiculopathy, lumbar region M54.16 and Radiculopathy, lumbosacral region M54.17 [facility] [address] [facility] [place] [address] 11/11/2024 Feng Stynowick Postlaminectomy syndrome, not elsewhere classified M96.1 ; Radiculopathy, lumbar region M54.16 ; Spondylosis without myelopathy or radiculopathy, lumbar region M47.816 ; Spondylosis without myelopathy or radiculopathy, lumbosacral region M47.817 and Radiculopathy, lumbosacral region M54.17 [facility] [address] [place] [address] 11/18/2024 Feng Stynowick Radiculopathy, lumba r region M54.16 ; Radiculopathy, lumbosacral region M54.17 and Osseous stenosis of neural canal of lumbar region M99.33 [facility] [address] [place] [address] 11/21/2024 Feng Stynowick [facility] [address] [place] [address] 11/21/2024 Feng Stynowick Radiculopathy, lumba r region M54.16 ; Radiculopathy, lumbosacral region M54.17 and Osseous stenosis of neural canal of lumbar region M99.33 [facility] [address] [facility] [place] [address] 12/02/2024 Feng Stynowick Radiculopathy, lumba r region M54.16 ASSESSMENTS Encounter Date Diagnosis Assessment Notes Treatment Notes Treatment Clinical Notes Section Notes 01/29/2024 Radiculopathy, lumbar region (ICD-10 - M54.16) [...] to fully comply with the above. The [facility] PDMP were reviewed and were appropriate 01/25/2024 Radiculopathy, lumbar region (ICD-10 - M54.16) [...] to fully comply with the above. The [place] PDMP were reviewed and were appropriate 01/02/2024 Sacroiliitis, not elsewhere classified (ICD-10 - M46.1) 12/27/2023 Sacroiliitis, not elsewhere classified (ICD-10 - [...] to fully comply with the above. The [place] PDMP were reviewed and were appropriate 12/19/2023 Radiculopathy, lumbar region (ICD-10 - M54.16) 11/18/2024 Radiculopathy, lumbosacral region (ICD-10 - M54.17) 03/26/2024 Spondylosis without myelopathy or radiculopathy, lumbar region (ICD-10 - M47.816) 11/21/2024 Radiculopathy, lumbar region (ICD-10 - M54.16) [...] reevaluation of her pain at that time. 11/18/2024 Radiculopathy, lumbar region (ICD-10 - M54.16) 11/21/2024 Radiculopathy, lumbosacral region (ICD-10 - M54.17) 03/26/2024 Spondylosis without myelopathy or radiculopathy, 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) 07/08/2024 Radiculopathy, lumbar region (ICD-10 - M54.16) 07/08/2024 Radiculopathy, lumbosacral region (ICD-10 - M54.17) 07/01/2024 Sacroiliitis, not elsewhere classified (ICD-10 - M46.1) 03/06/2024 Spondylosis without myelopathy or radiculopathy, lumbar [...] is agreeable to proceeding at this time. 10/24/2024 Postlaminectomy syndrome, not elsewhere classified (ICD-10 [...] to fully comply with the above. The [place] PDMP were reviewed and were appropriate 10/24/2024 Spondylosis without myelopathy or radiculopathy, lumbar region (ICD-10 - M47.816) 10/16/2024 Radiculopathy, lumbar region (ICD-10 - M54.16) 06/03/2024 Radiculopathy, lumbar region (ICD-10 - M54.16) [...] to fully comply with the above. The [facility] PDMP were reviewed and were appropriate 03/06/2024 [...] to fully comply with the above. The [facility] PDMP were reviewed and were appropriate 06/03/2024 Sacroiliitis, not elsewhere classified (ICD-10 - M46.1) 02/19/2024 Radiculopathy, lumbar region (ICD-10 - M54.16) 12/02/2024 Radiculopathy, lumbar region (ICD-10 - M54.16) 10/09/2024 Spondylosis without myelopathy or radiculopathy, lumbosacral [...] to fully comply with the above. [facility] [facility] were reviewed and were appropriate 07/08/2024 [...] to fully comply with the above. [facility] PDMP were reviewed and were appropriate 07/31/2024 Radiculopathy, lumbosacral region (ICD-10 - M54.17) 11/11/2024 Postlaminectomy syndrome, not elsewhere classified (ICD-10 [...] to fully comply with the above. The [place] PDMP were reviewed and were appropriate 05/03/2024 Spondylosis without myelopathy or radiculopathy, lumbar region (ICD-10 - M47.816) 09/27/2024 Sacroiliitis, not elsewhere classified (ICD-10 - M46.1) 01/29/2024 Radiculopathy, lumbar region (ICD-10 - M54.16) 09/06/2024 Sacroiliitis, not elsewhere classified (ICD-10 - [...] to fully comply with the above. The [place] PDMP were reviewed and were appropriate 08/28/2024 [...] is agreeable to proceeding at this time. 02/06/2024 Sacroiliitis, not elsewhere classified (ICD-10 - M46.1) 05/03/2024 Sacroiliitis, not elsewhere classified (ICD-10 - [...] Sacroiliitis, not elsewhere classified (ICD-10 - M46.1) 04/26/2024 Radiculopathy, lumbar region (ICD-10 - M54.16) 09/27/2024 Spondylosis without myelopathy or radiculopathy, lumbar [...] to fully comply with the above. The [place] PDMP were reviewed and were appropriate 11/11/2024 [...] is agreeable to proceeding at this time. 07/30/2024 Radiculopathy, lumbar region (ICD-10 - M54.16) 02/16/2024 Radiculopathy, lumbar region (ICD-10 - M54.16) 02/16/2024 Intervertebral disc disorders with radiculopathy, lumbar region (ICD-10 - M51.16) L4-5 HNP 10/09/2024 Spondylosis without myelopathy or radiculopathy, lumbar region (ICD-10 - M47.816) 04/05/2024 Spondylosis without myelopathy or radiculopathy, lumbar region (ICD-10 - M47.816) 06/03/2024 Spondylosis without myelopathy or radiculopathy, lumbar region (ICD-10 - M47.816) 11/11/2024 Spondylosis without myelopathy or radiculopathy, lumbar [...] to fully comply with the above. 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 [facility] PDMP were reviewed and were appropriate 12/27/2023 Spondylosis without myelopathy or radiculopathy, lumbar region (ICD-10 - M47.816) 02/06/2024 Spondylosis without myelopathy or radiculopathy, lumbar [...] to fully comply with the above. 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) 09/27/2024 Postlaminectomy syndrome, not elsewhere classified (ICD-10 - M96.1) 10/24/2024 Radiculopathy, lumbar region (ICD-10 - M54.16) 11/11/2024 Spondylosis without myelopathy or radiculopathy, 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) 04/05/2024 Postlaminectomy syndrome, not elsewhere classified (ICD-10 - M96.1) 03/06/2024 Postlaminectomy syndrome, not elsewhere classified (ICD-10 - M96.1) 02/06/2024 Postlaminectomy syndrome, not elsewhere classified (ICD-10 - M96.1) 12/27/2023 Postlaminectomy syndrome, not elsewhere classified (ICD-10 - M96.1) 01/25/2024 Spondylosis without myelopathy or radiculopathy, lumbar region (ICD-10 - M47.816) 01/29/2024 Spondylosis without myelopathy or radiculopathy, lumbar region (ICD-10 - M47.816) 08/28/2024 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) 07/31/2024 Sacroiliitis, not elsewhere classified (ICD-10 - M46.1) 07/01/2024 Postlaminectomy syndrome, not elsewhere classified (ICD-10 - M96.1) 05/03/2024 Postlaminectomy syndrome, not elsewhere classified (ICD-10 - M96.1) 06/03/2024 Postlaminectomy syndrome, not elsewhere classified (ICD-10 - M96.1) 01/29/2024 Postlaminectomy syndrome, not elsewhere classified (ICD-10 - M96.1) 01/25/2024 Postlaminectomy syndrome, not elsewhere classified (ICD-10 - M96.1) 08/28/2024 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 (ICD-10 - Z79.891) 02/06/2024 Other intervertebral disc degeneration, lumbar region (ICD-10 - M51.36) 07/31/2024 prison (current) use of opiate analgesic (ICD-10 - Z79.891) 04/05/2024 Other intervertebral disc degeneration, lumbar region (ICD-10 - M51.36) 11/11/2024 Radiculopathy, lumbosacral region (ICD-10 - M54.17) 10/24/2024 Radiculopathy, lumbosacral region (ICD-10 - M54.17) 07/01/2024 stonemason helper (current) use of 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 (ICD-10 [...] 09/27/2024 Radiculopathy, lumbosacral region (ICD-10 - M54.17) 04/05/2024 Osseous stenosis of neural canal of [...] or radiculopathy, 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) 01/25/2024 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 JL KELSEY. 10/24/2024 Other The above-named patient was evaluated [...] Lumbar Spine with and without Cont rast ([id number]) 04/25/2022 MRI : Lumbar Spine with and without Cont rast ([id number]) 02/01/2022 XRAY right shoulder 09/09/2020 [facility] 01/03/2022 [facility] 03/29/2022 [facility] 09/16/2022 [facility] 06/01/2023 [facility] 08/28/2023 [facility] 11/29/2023 [facility] 03/06/2024 [facility] 05/31/2024 [facility] 08/27/2024 Next Appt Details Provider Name:Feng bean, 12/25/2024 11:00:00 AM, [address] [place], [address], Insurance Providers Payer Name Payer Address Payer Phone Subscriber Number Group Number Insured Name Patient Relationship to Insured Coverage Start Date Coverage End Date [employer] Claims [address] [address] [place] [address] [id number] MIKE PADGETT Self - patient is the insured 8 MEDICAL (GENERAL) HISTORY Medical History History ICD Code Hypertension Stomach Ulcers Depression Insomnia GERD Anemia Asthma Migraine Surgical History Surgery Date(Month/Year) Pain Pump Removal 2011 Multiple Lumbar Surgeries
--- OUTSIDE RECORDS SUMMARY | 2024-12-17 17:52 | XMS_ITS | Clinical Summary ---
Author Organization [facility] Address [address] [place] [address] Care Team Providers Care Rubber Molder Name Role Phone Dolly Grimes GATHERING MACHINE SETTER Primary Care Provider + [phone] Allergies Active Allergy Reactions Criticality Noted Date [...] Department Care Team Description 11/25/2024 Orders Only [facility] [place] [address] Marisel Delacruz MD 11/25/2024 Pre-Procedure Call [facility] [place] [address] Rayo Vogel MD Preprocedure Call 10/08/2024 Orders Only [facility] [place] [address] Marisel Delacruz MD 09/25/2024 Pre-Procedure Call [facility] [place] [address] Marisel Delacruz MD Preprocedure Call from Last [...] Sex Assigned at Female 04/18/2024 4:10 PM DISTANCE LEARNING PROGRAM COORDINATOR Legal Sex Female 4:08 PM DISTANCE LEARNING PROGRAM COORDINATOR Gender Identity Not on file Sexual [...] 11/25/2024 12:01 AM CDT Plan of Treatment Health Maintenance Due Date Last Done Comments Colorectal Cancer Screening Colonoscopy (10 Years) 1954 Hepatitis C 1972 Zoster Vaccines (1 of 2) 2004 Annual Medicare Wellness Visit 05/13/2019 Dexa Scan (General) 05/13/2019 09/01/2011 Mammogram Screening 05/13/2019 2017, 5 DTaP, Tdap and Td Vaccines (2 - Td or Tdap) 12/05/2023 12/04/2013, 06/09/2005 COVID-19 Vaccine (3 - season) 2024 05/22/2020, 05/01/2020 Influenza Adult (#1) 2024 04/05/2024, 11/30/2018, 02/03/2018, Additional history exists RSV Immunization or 60+ Years (1 - 1-dose 75+ series) 2029 Pneumococcal Vaccine: 50+ Years Completed 04/05/2024, 08/27/2014 Hepatitis A Vaccines Aged Out No long er eligible based on patient's age to complete this topic Meningococcal B Vaccine Aged Out No l onger eligible based on patient's age to complete this topic Meningococcal Vaccine Aged Out No cruzito timothy eligible based on patient's age to complete this topic RSV Immunizations Under 20 Months Aged Out No longer eligible based on patient's age to complete this topic Insurance [employer] Care Teams Rubber Molder Relationship Specialty Start Date End Date Dolly Grimes FNP [address] [place] [address] [address] PCP - General Nurse Practitioner Family 05/21/24
== END 2024-12-17 16:14 | disposition home or self-care (01) ==
PROVIDERS: PCP Nurse Practitioner Family; Visit Provider Nurse Practitioner Family
DX: M51.360 Other intervertebral disc degeneration, lumbar region with discogenic back pain only (principal); M51.370 Other intervertebral disc degeneration, lumbosacral region with discogenic back pain only; Z98.1 Arthrodesis status
CPT/HCPCS: 72070; 72100

== ENCOUNTER 2024-12-31 09:07 | Outpatient (CLI) | payer MEDICARE, SELFPAY ==
--- OUTSIDE RECORDS SUMMARY | 2024-10-10 08:49 | XMS_ITS ---
Author Organization [facility] Address [address] [facility] Kristine te [place] [address] Care Team Providers Care Dealer Sales Manager Name Role Phone Anabella CARMEN, Joy Primary Care Provider Unavailable Feng Hendrickson Unavailable [phone] REASON FOR VISIT Post Procedure Follow Up Call Encounters Encounter Location Date Provider Diagnosis [facility] [address] [place] [address] 10/10/2024 Feng Hendrickson PLAN OF TREATMENT Next Appt Details Provider Name:Feng bean, 01/14/2025 10:45:00 AM, [address] [facility] [place], [address],
--- OUTSIDE RECORDS SUMMARY | 2024-10-16 08:25 | XMS_ITS ---
Author Organization [facility] Address [address] [place] [address] [place] [address] Care Team Providers Care Proposal Consultant Name Role Phone Anabella CARMEN, Joy Primary Care Provider Unavailable Feng Hendrickson Unavailable [phone] MEDICATIONS Medication SIG (Take, Route, Fr equency, Duration) Notes Start Date End Date Status tiZANidine HCl 4 MG 1 tablet as needed O ral 3 x day muscle spasm for 30 days 12/13/2019 Active Encounters Encounter Location Date Provider Diagnosis [facility] [address] [place] [address] [place] [address] 10/16/2024 Feng Hendrickson Radiculopathy, lumbar region M54.16 ASSESSMENTS Encounter Date Diagnosis Assessment Notes Treatment Notes Treatment Clinical Notes Section Notes 10/16/2024 Radiculopathy, lumbar region (ICD-10 - M54.16) PLAN OF TREATMENT Medication Medication Name Sig Start Date Stop Date Notes tiZANidine HCl 4 MG 1 tablet as needed O ral 3 x day muscle spasm for 30 days 12/13/2019 Next Appt Details Provider Name:Feng bean, 01/14/2025 10:45:00 AM, [address] [place], [address],
--- OUTSIDE RECORDS SUMMARY | 2024-10-24 04:30 | XMS_ITS ---
Author Organization [facility] Address [address] [place] [address] [place] [address] Care Team Providers Care Cloth Layer Name Role Phone Anabella CARMEN, Joy Primary Care Provider Unavailable Feng Hendrickson Unavailable [phone] ALLERGIES Allergen (clinical drug ingredient) Drug/Non Drug Allergy documented on EMR Reaction Allergy Type Onset Date Status aripiprazole Aripiprazole nausea and vomiting Drug Allergy Active clindamycin Clindamycin diarrhea Drug Allergy Act lucian fentanyl Fentanyl nausea Drug Allergy Active morphine Morphine rash/itching Drug Allergy Acti ve REASON FOR VISIT FOLLOW UP, Right = Left Low Back Pain MEDICATIONS Medication SIG (Take, Route, Frequency, Duration) Notes Start Date End Date Status NIFEdipine ER Osmotic Release 30 MG 30 MG ORALLY DAILY Oral for 90 Active tiZANidine HCl 4 MG 1 tablet as needed Oral 3 x day muscle spasm for 30 days 12/13/2019 Active Rosuvastatin Calcium 20 MG TAKE 1 TABLET BY MOUTH EVERY DAY Oral for 90 Active Donepezil HCl 5 MG TAKE 1 TABLET BY MOUTH EVERYDAY AT BEDTIME Oral for 90 Active HYDROcodone-Acetaminoph en 10-325 MG 1 tablet Orally every 4 to 6 hrs as needed for severe pain (max 5x/day) for 30 days MAY FILL 10/26/24 10/24/2024 Active Chlorthalidone 25 MG TAKE 1 TABLET BY MOUTH EVERY DAY Oral for 90 Active Spironolactone 25 MG Oral for 90 Active Irbesartan 150 MG TAKE 1 TABLET BY MOUTH EVERY DAY Oral for 90 Active Prolia 60 MG/ML Subcutaneous for 180 Active Albuterol Sulfate HFA 108 (90 Base) MCG/ACT Inhalation for 16 A ctive hydrOXYzine HCl 25 MG TAKE 1 TABLET [...] Fluticasone-Salmeterol 250-50 MCG/ACT Inhalation for 30 Active Narcan 4 MG/0.1ML 1 actuation in one nostril x1, Nasally 2-3 minutes as needed until the patient is responsive or EMS arrives Active Amphetamine-Dextroamphe tamine 20 MG TAKE 1 [...] before bedtime Orally Once a day Active amLODIPine Besylate [...] needed Inhalation every 6 hrs 09/25/2017 Active traZODone HCl 100 MG 1 tablet at bedtime Oral Once a day Active Vitamin D3 1000 UNIT 1 capsule Orally On a day 09/25/2017 Active ZyPREXA 5 MG 1 tablet Orally Once a day Active FLUoxetine HCl 40 [...] drug abuse. VITAL SIGNS Blood pressure systolic 174 mm Hg 10/25/19 25 Blood pressure diastolic 101 mm Hg 025 Heart Rate 69 /min 10/24/2024 Respiratory Rate 16 /min 10/24/2024 Height 60 in 10/24/2024 Weight 133 lbs 10/24/2024 BMI 25.97 kg/m2 10/24/2024 Encounters Encounter Location Date Provider Diagnosis [facility] [address] [facility] [place] [address] 10/24/2024 Feng Hendrickson Spondylosis without myelopathy or radiculopathy, lumbar region M47.816 ; Postlaminectomy syndrome, not elsewhere classified M96.1 ; Spondylosis without myelopathy or radiculopathy, lumbosacral region M47.817 ; Radiculopathy, lumbar region M54.16 and Radiculopathy, lumbosacral region M54.17 ASSESSMENTS Encounter Date Diagnosis Assessment Notes Treatment Notes Treatment Clinical Notes Section Notes 10/24/2024 Spondylosis without myelopathy or radiculopathy, lumbar region (ICD-10 - M47.816) 10/24/2024 Postlaminectomy syndrome, not elsewhere classified (ICD-10 - M96.1) The side effects of opioid analgesics including [...] with the above. 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) 10/24/2024 Radiculopathy, lumbar region (ICD-10 - M54.16) 10/24/2024 Radiculopathy, lumbosacral region (ICD-10 - M54.17) 10/24/2024 Other The above-named patient was evaluated in [...] spent with patient and medical decision making 32 minutes PLAN OF TREATMENT Medication Medication Name Sig Start Date Stop Date Notes HYDROcodone-Acetaminophen 10-325 MG 1 tablet Orally every 4 to 6 hrs as needed for severe pain (max 5x/day) for 30 days 10/24/2024 MAY FILL 10/26/24 Treatment Notes Assessment Notes Postlaminectomy syndrome, no t elsewhere classified The side effects of opioid analgesics including [...] with the above. The [place] and [place] PDMP were reviewed and were [...] spent with patient and medical decision making 32 minutes Next Appt Details Follow Up: 4 Weeks [facility], Reas on: Provider Name:Feng Olivo Lay chrissykaren, 01/14/2025 10:45:00 AM, [address] [place], [address], Progress Notes * Examination Category Sub-Category Detail [...] axial low back pain. Gonzalo's, Gaenslen's and [place]'s tests are positive bilaterally. There is severe [...] neural foramen. Assessment and Follow-up: Follow-up Plan dockarly beasley:: Yes
--- OUTSIDE RECORDS SUMMARY | 2024-11-11 07:00 | XMS_ITS ---
Author Organization [facility] Address [address] [place] [address] VIDHYA Johnson [address] Care Team Providers Care Programming Engineer Name Role Phone Anabella CARMEN, Joy Primary Care Provider Unavailable Feng Hendrickson Unavailable [phone] ALLERGIES Allergen (clinical drug ingredient) Drug/Non Drug Allergy documented on EMR Reaction Allergy Type Onset Date Status aripiprazole Aripiprazole nausea and vomiting Drug Allergy Active clindamycin Clindamycin diarrhea Drug Allergy Act lucian fentanyl Fentanyl nausea Drug Allergy Active morphine Morphine rash/itching Drug Allergy Acti ve REASON FOR VISIT Follow Up, Right = Left Low Back Pain, Right Lower Extremity Pain MEDICATIONS Medication SIG (Take, Route, Frequency, Duration) Notes Start Date End Date Status HYDROcodone-Acetaminoph en 10-325 MG 1 tablet Orally every 4 to 6 hrs as needed for severe pain (max 5x/day) for 30 days MAY FILL 11/26/24 11/11/2024 Active tiZANidine HCl 4 MG 1 tablet as needed Oral 3 x day muscle spasm for 30 days 12/13/2019 Active Rosuvastatin Calcium 20 MG TAKE 1 TABLET BY MOUTH EVERY DAY Oral for 90 Active NIFEdipine ER Osmotic Release 30 MG 30 MG ORALLY DAILY Oral for 90 Active Donepezil HCl 5 MG TAKE 1 TABLET BY MOUTH EVERYDAY AT BEDTIME Oral for 90 Active Prolia 60 MG/ML Subcutaneous for 180 Active Irbesartan 150 MG TAKE 1 TABLET BY MOUTH EVERY DAY Oral for 90 Active Chlorthalidone 25 MG TAKE 1 TABLET BY MOUTH EVERY DAY Oral for 90 Active Albuterol Sulfate HFA 108 (90 Base) MCG/ACT Inhalation for 16 A ctive Spironolactone 25 MG Oral for 90 Active Fluticasone-Salmeterol 250-50 MCG/ACT Inhalation for 30 Active Metoprolol Succinate ER 25 MG TAKE 1 TABLET BY MOUTH EVERY DAY Oral for 90 Active Carvedilol 3.125 MG TAKE 1 TABLET BY MOUTH EVERY 12 HOURS WITH A MEAL/FOOD Oral for 90 Active hydrOXYzine HCl 25 MG TAKE 1 TABLET BY MOUTH THREE TIMES A DAY NEEDED FOR ANXIETY Oral for 10 Active Losartan Potassium-HCTZ 100-25 MG TAKE 1 [...] needed for pain for 30 days Active Amphetamine-Dextroamphe tamine 20 MG TAKE 1 TABLET BY MOUTH EVERY DAY Oral for 30 Active CVS D3 50 MCG (2000 UT) [...] drug abuse. VITAL SIGNS Blood pressure systolic 175 mm Hg 11/12/19 25 Blood pressure diastolic 104 mm Hg 025 Heart Rate 73 /min 11/11/2024 Respiratory Rate 18 /min 11/11/2024 Height 60 in 11/11/2024 Weight 134 lbs 11/11/2024 BMI 26.17 kg/m2 11/11/2024 Encounters Encounter Location Date Provider Diagnosis [facility] [address] [facility] [place] [address] 11/11/2024 Feng Emeka Postlaminectomy syndrome, not elsewhere classified M96.1 ; Radiculopathy, lumbar region M54.16 ; Spondylosis without myelopathy or radiculopathy, lumbar region M47.816 ; Spondylosis without myelopathy or radiculopathy, lumbosacral region M47.817 and Radiculopathy, lumbosacral region M54.17 ASSESSMENTS Encounter Date Diagnosis Assessment Notes Treatment Notes Treatment Clinical Notes Section Notes 11/11/2024 Postlaminectomy syndrome, not elsewhere classified (ICD-10 - [...] comply with the above. The [place] PDMP were reviewed and were appropriate 11/11/2024 Radiculopathy, lumbar region (ICD-10 - M54.16) Schedule [...] is agreeable to proceeding at this time. 11/11/2024 Spondylosis without myelopathy or radiculopathy, lumbar region (ICD-10 - M47.816) 11/11/2024 Spondylosis without myelopathy or radiculopathy, 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) 11/11/2024 Radiculopathy, lumbosacral region (ICD-10 - M54.17) 11/11/2024 Other The above-named patient was evaluated in [...] severe pain (max 5x/day) for 30 days 11/11/2024 MAY FILL 11/26/24 Treatment Notes Assessment Notes Postlaminectomy syndrome, no [...] comply with the above. The [place] PDMP were reviewed and were appropriate Radiculopathy, lumbar region Schedule a bilateral L4-5 transforaminal epidural steroid [...] is agreeable to proceeding at this time. Other The above-named patient was evaluated in [...] minutes Next Appt Details Follow Up: bilateral L4-5 TF E, Reason: Provider Name:Feng bean, 01/14/2025 10:45:00 AM, [address] [place], [address], Progress Notes * Examination Category Sub-Category Detail [...] axial low back pain. Gonzalo's, Gaenslen's and Snyder's tests are positive bilaterally. There is severe [...]
--- OUTSIDE RECORDS SUMMARY | 2024-11-18 04:45 | XMS_ITS ---
Author Organization [facility] Address [address] [place] [address] VIDHYA Johnson [address] Care Team Providers Care Produce Sorter Name Role Phone Anabella CARMEN, Joy Primary Care Provider Unavailable Feng Hendrickson Unavailable [phone] ALLERGIES Allergen (clinical drug ingredient) Drug/Non Drug [...] muscle spasm for 30 days 12/13/2019 Active Donepezil HCl 5 MG TAKE 1 TABLET BY MOUTH EVERYDAY AT BEDTIME Oral for 90 Active NIFEdipine ER Osmotic Release 30 MG 30 MG ORALLY DAILY Oral for 90 Active HYDROcodone-Acetaminoph en 10-325 MG 1 tablet Orally every 4 to 6 hrs as needed for severe pain (max 5x/day) for 30 days MAY FILL 11/26/24 11/11/2024 Active Rosuvastatin Calcium 20 MG TAKE 1 TABLET BY MOUTH EVERY DAY Oral for 90 Active Chlorthalidone 25 MG TAKE 1 TABLET BY MOUTH EVERY DAY Oral for 90 Active Irbesartan 150 MG TAKE 1 TABLET BY MOUTH EVERY DAY Oral for 90 Active Spironolactone 25 MG Oral for 90 Active Albuterol Sulfate HFA 108 (90 Base) MCG/ACT Inhalation for 16 A ctive Prolia 60 MG/ML Subcutaneous for 180 Active Metoprolol Succinate ER 25 MG TAKE 1 TABLET BY MOUTH EVERY DAY Oral for 90 Active hydrOXYzine HCl 25 MG TAKE 1 TABLET BY MOUTH THREE TIMES A DAY NEEDED FOR ANXIETY Oral for 10 Active Fluticasone-Salmeterol 250-50 MCG/ACT Inhalation for 30 Active Losartan Potassium-HCTZ 100-25 MG TAKE 1 TABLET BY MOUTH EVERY DAY Oral for 90 Active Carvedilol 3.125 MG TAKE 1 TABLET BY MOUTH EVERY 12 HOURS WITH A MEAL/FOOD Oral for 90 Active Amphetamine-Dextroamphe tamine 20 [...] Lidocaine-Prilocaine 2.5-2.5 % as directed External Active ZyPREXA 5 MG 1 tablet Orally [...] 1 capsule Oral Once a day Active VITAL SIGNS Blood pressure systolic 191 mm Hg 11/19/19 25 Blood pressure diastolic 117 mm Hg 025 Heart Rate 84 /min 11/18/2024 Respiratory Rate 16 /min 11/18/2024 Height 60 in 11/18/2024 Weight 134 lbs 11/18/2024 BMI 26.17 kg/m2 11/18/2024 Post Procedure VS=BP 182/109 , P 83, R 14Spoke with pt concerning her high BP. She states she is working with her doctor on it and is aware. Discharged home ambulatory, in no acute distress. 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 X-ray time: 17 seconds Progress Notes [...] axial low back pain. Gonzalo's, Gaenslen's and [place]'s tests are positive bilaterally. There is severe [...]
--- OUTSIDE RECORDS SUMMARY | 2024-11-21 05:00 | XMS_ITS ---
Author Organization [facility] Address [address] [facility] [place] V[place]HYA Panchal [address] Care Team Providers Care Forensic Anthropologist Name Role Phone Anabella CARMEN, Joy Primary Care Provider Unavailable Feng Hendrickson Unavailable [phone] REASON FOR VISIT FOLLOW UP Encounters Encounter Location Date Provider Diagnosis [facility] [address] [facility] [place] [address] 11/21/2024 Feng Hendrickson PLAN OF TREATMENT Next Appt Details Provider Name:Feng bean, 01/14/2025 10:45:00 AM, [address] [facility] [place], [address],
--- OUTSIDE RECORDS SUMMARY | 2024-11-21 08:30 | XMS_ITS ---
Author Organization [facility] Address [address] [place] [address] VIDHYA Johnson [address] Care Team Providers Care Punch Press Feeder Name Role Phone Anabella CARMEN, Joy Primary Care Provider Unavailable Feng Hendrickson Unavailable [phone] ALLERGIES Allergen (clinical drug ingredient) Drug/Non Drug [...] Duration) Notes Start Date End Date Status Prolia 60 MG/ML Subcutaneous for 180 Active Albuterol Sulfate HFA 108 (90 Base) MCG/ACT Inhalation for 16 A ctive Losartan Potassium-HCTZ 100-25 MG TAKE 1 TABLET BY MOUTH EVERY DAY Oral for 90 Active Fluticasone-Salmeterol 250-50 MCG/ACT Inhalation for 30 Active Carvedilol [...] 30 days Active CVS D3 50 MCG (1999 UT) TAKE 1 CAPSULE B Y MOUTH EVERY DAY Oral for 90 Active rOPINIRole HCl 0.5 MG 1 tablet 1 to 3 ho urs before bedtime Orally Once a day Active Fluticasone Propionate 50 [...] 1 capsule Oral Once a day Active HYDROcodone-Acetaminoph en 10-325 MG 1 tablet [...] muscle spasm for 30 days 12/13/2019 Active Spironolactone 25 MG Oral for 90 [...] drug abuse. 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 She currently denies a need for any injections or interventions at this time. She would like to return to the office in 1 month for follow-up and reevaluation of her pain at that time. 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 She currently denies a need for any injections or interventions at this time. She would like to return to the office in 1 month for follow-up and reevaluation of her pain at that time. Other The above-named patient was evaluated [...] OPV, Reas on: Provider Name:Feng Geovani bean, 01/14/2025 10:45:00 AM, [address] [place] [address], [phone], Progress Notes * Examination Category Sub-Category [...] axial low back pain. Gonzalo's, Gaenslen's and [place]'s tests are positive bilaterally. There is severe [...]
--- OUTSIDE RECORDS SUMMARY | 2024-12-02 07:00 | XMS_ITS ---
Author Organization [facility] Address [address] [facility] [place] [address] Care Team Providers Care Rn Field Case Manager Name Role Phone Anabella CARMEN, Joy Primary Care Provider Unavailable Feng Hendrickson Unavailable [phone] REASON FOR VISIT refill MEDICATIONS Medication SIG (Take, Route, Fr equency, Duration) Notes Start Date End Date Status tiZANidine HCl 4 MG 1 tablet as needed O ral 3 x day muscle spasm for 30 days 12/13/2019 Active Encounters Encounter Location Date Provider Diagnosis [facility] [address] [place] [address] 12/02/2024 Feng Hendrickson Radiculopathy, lumbar region M54.16 ASSESSMENTS Encounter Date Diagnosis Assessment Notes Treatment Notes Treatment Clinical Notes Section Notes 12/02/2024 Radiculopathy, lumbar region (ICD-10 - M54.16) PLAN OF TREATMENT Medication Medication Name Sig Start Date Stop Date Notes tiZANidine HCl 4 MG 1 tablet as needed O ral 3 x day muscle spasm for 30 days 12/13/2019 Next Appt Details Provider Name:Feng bean, 01/14/2025 10:45:00 AM, [address] [place], [address],
--- OUTSIDE RECORDS SUMMARY | 2024-12-25 05:00 | XMS_ITS ---
Author Organization [facility] Address [address] [place] [address] VIDHYA Johnson [address] Care Team Providers Care Soldering Machine Operator Name Role Phone Anabella CARMEN, Joy Primary Care Provider Unavailable Emeka Feng Unavailable [phone] ALLERGIES Allergen (clinical drug ingredient) Drug/Non Drug Allergy documented on EMR Reaction Allergy Type Onset Date Status aripiprazole Aripiprazole nausea and vomiting Drug Allergy Active clindamycin Clindamycin diarrhea Drug Allergy Act lucian fentanyl Fentanyl nausea Drug Allergy Active morphine Morphine rash/itching Drug Allergy Acti ve REASON FOR VISIT Follow Up, Right = Left Low Back Pain, Right = Left Mid Back Pain MEDICATIONS Medication SIG (Take, Route, Frequency, Duration) Notes Start Date End Date Status Voltaren 1 % apply 4 grams to painful joint(s) Transdermal 4x/day as needed for pain for 30 days Active rOPINIRole HCl 0.5 MG 1 tablet 1 to 3 ho urs before bedtime Orally Once a day Active Narcan 4 MG/0.1ML 1 actuation in one nostril x1, Nasally 2-3 minutes as needed until the patient is responsive or EMS arrives Active Ferrous Sulfate 325 (65 Fe) MG 325 MG ORALLY TWICE A DAY Oral for 90 Active CVS D3 50 MCG (1999 UT) TAKE 1 CAPSULE B Y MOUTH EVERY DAY Oral for 90 Active ZyPREXA 5 MG 1 tablet Orally Once a day Active Lidocaine-Prilocaine 2.5-2.5 % as directed External Active amLODIPine Besylate 5 MG 1 tablet Oral O nce a day Active Losartan Potassium 25 MG 1 tablet Oral O nce a day Active Fluticasone Propionate 50 MCG/ACT 1 spray in each nostril Nasal Twice a day Active traZODone HCl 100 MG 1 tablet at bedtime Oral Once a day Active ProAir HFA 108 (90 Base) MCG/ACT 2 puffs as needed Inhalation every 6 hrs 09/25/2017 Active Omeprazole 20 MG 1 capsule 30 minutes before morning meal Oral Once a day Active Vitamin D3 1000 UNIT 1 capsule Orally On ce a day 09/25/2017 Active FLUoxetine HCl 40 MG 1 capsule Oral Once a day Active Donepezil HCl 5 MG TAKE 1 TABLET BY ROYA TH EVERYDAY AT BEDTIME Oral for 90 Active methylPREDNISolone 4 MG as directed Orally 025 Active Rosuvastatin Calcium 20 MG TAKE 1 TABLET BY MOUTH EVERY DAY Oral for 90 Active tiZANidine HCl 4 MG 1 tablet as needed O ral 3 x day muscle spasm for 30 days 12/13/2019 Active HYDROcodone-Acetaminophen 10-325 MG 1 tablet Orally every 4 to 6 hrs as needed for severe pain (max 5x/day) for 30 days 12/25/2024 Active Spironolactone 25 MG Oral for 90 Active Albuterol Sulfate HFA 108 (9 0 Base) MCG/ACT Inhalation for 16 Active Chlorthalidone 25 MG TAKE 1 TABLET BY MO UTH EVERY DAY Oral for 90 Active Irbesartan 150 MG TAKE 1 TABLET BY ROYA TH EVERY DAY Oral for 90 Active NIFEdipine ER Osmotic Releas e 30 MG 30 MG ORALLY DAILY Oral for 90 Active Carvedilol 3.125 MG TAKE 1 TABLET BY ROYA TH EVERY 12 HOURS WITH A MEAL/FOOD Oral for 90 Active Metoprolol Succinate ER 25 MG TAKE 1 TAB LET BY MOUTH EVERY DAY Oral for 90 Active Fluticasone-Salmeterol 250-5 0 MCG/ACT Inhalation for 30 Active Losartan Potassium-HCTZ 100-25 MG TAKE 1 TABLET BY MOUTH EVERY DAY Oral for 90 Active Prolia 60 MG/ML Subcutaneous for 180 Active hydrOXYzine HCl 25 MG TAKE 1 TABLET BY M OUT THREE TIMES A DAY NEEDED FOR ANXIETY Oral for 10 Active Amphetamine-Dextroamphetamin e 20 MG TAKE 1 TABLET BY MOUTH EVERY DAY Oral for 30 Active SOCIAL HISTORY Tobacco Use: Social History [...] W/U Status Risk SNOMED Code Notes Problem Radiculopathy , thoracic region (M54.14) Active confirmed Thoracic radiculopathy ([id number]) VITAL SIGNS Blood pressure systolic 163 mm Hg 12/26/19 25 Blood pressure diastolic 100 mm Hg 025 Heart Rate 80 /min 12/25/2024 Respiratory Rate 18 /min 12/25/2024 Height 60 in 12/25/2024 Weight 132 lbs 12/25/2024 BMI 25.78 kg/m2 12/25/2024 Encounters Encounter Location Date Provider Diagnosis [facility] [address] [place] [id number] 12/25/2024 Feng Hendrickson Radiculopathy, lumba r region M54.16 ; Sacroiliitis, not elsewhere classified M46.1 ; Radiculopathy, lumbosacral region M54.17 ; Osseous stenosis of neural canal of lumbar region M99.33 ; Postlaminectomy syndrome, not elsewhere classified M96.1 ; Radiculopathy, thoracic region M54.14 and nursing home (current) use of opiate analgesic Z79.891 ASSESSMENTS Encounter Date Diagnosis Assessment Notes Treatment Notes Treatment Clinical Notes Section Notes 12/25/2024 Radiculopathy, lumbar region (ICD-10 - M54.16) 12/25/2024 Sacroiliitis, not elsewhere classified (ICD-10 - M46.1) [...] is agreeable to proceeding at this time. 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 The [place] PDMP were reviewed and were appropriate 12/25/2024 Radiculopathy, thoracic region (ICD-10 - M54.14) The patient was instructed to notify the office after imaging has been obtained so it can be reviewed and treatment plan formulated moving forward. Patient verbalized understanding and agrees with current plan. 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 12/25/2024 Other The above-named patient was evaluated in [...] Name Sig Start Date Stop Date Notes methylPREDNISolone 4 MG as directed Orally 12/25/2024 HYDROcodone-Acetaminophen 10 -325 MG 1 tablet Orally every 4 to 6 hrs as needed for severe pain (max 5x/day) for 30 days 12/25/2024 Treatment Notes Assessment Notes Sacroiliitis, not elsewhere [...] is agreeable to proceeding at this time. Postlaminectomy syndrome, no t elsewhere classified The [...] with the above. The [place] PDMP were reviewed and were appropriate Radiculopathy, thoracic region The patie nt was instructed to notify the office after imaging has been obtained so it can be reviewed and treatment plan formulated moving forward. Patient verbalized understanding and agrees with current plan. long term care social worker (current) use of o piate analgesic The [...] with Patient and Medical Decision Makin minutes Pending Test Test Name Order Date MRI : Thoracic Spine without Contrast ([id number]) 12/25/2024 Next Appt Details Follow Up: bilateral SIJ michael roid injection, Reason: Provider Name:Feng bean, 01/14/2025 10:45:00 AM, [address] [place], [address], Progress Notes * Examination Category Sub-Category Detail [...] axial low back pain. Gonzalo's, Gaenslen's and [place]'s tests are positive bilaterally. There is severe [...] and Follow-up: Follow-up Plan documen gale:: Yes [facility] Quality 2020: MIPS Documented:: Compliant
--- OUTSIDE RECORDS SUMMARY | 2024-12-30 06:45 | XMS_ITS ---
Author Organization [facility] Address [address] [place] [address] Kristine BirchVIDHYA [address] Care Team Providers Care Hand Miter Operator Name Role Phone Anabella CARMEN, Joy Primary Care Provider Unavailable Feng Hendrickson Unavailable [phone] ALLERGIES Allergen (clinical drug ingredient) Drug/Non Drug Allergy documented on EMR Reaction Allergy Type Onset Date Status aripiprazole Aripiprazole nausea and vomiting Drug Allergy Active clindamycin Clindamycin diarrhea Drug Allergy Act lucian fentanyl Fentanyl nausea Drug Allergy Active morphine Morphine rash/itching Drug Allergy Acti ve REASON FOR VISIT Right=Left Low Back Pain MEDICATIONS Medication SIG (Take, [...] TH EVERY DAY Oral for 90 Active Spironolactone 25 MG Oral for 90 Active Losartan Potassium-HCTZ 100-25 MG TAKE 1 TABLET BY MOUTH EVERY DAY Oral for 90 Active Carvedilol 3.125 MG TAKE 1 TABLET BY ROYA TH EVERY 12 HOURS WITH A MEAL/FOOD Oral for 90 Active Albuterol Sulfate HFA 108 (9 0 Base) MCG/ACT Inhalation for 16 Active Prolia 60 MG/ML Subcutaneous for 180 Active Fluticasone-Salmeterol 250-5 0 MCG/ACT Inhalation for 30 Active Amphetamine-Dextroamphetamin e 20 MG TAKE 1 TABLET BY MOUTH EVERY DAY Oral for 30 Active hydrOXYzine HCl 25 MG TAKE 1 TABLET BY OUT THREE TIMES A DAY NEEDED FOR [...] tablet Oral O nce a day Active CVS D3 50 MCG (2000 UT) TAKE 1 CAPSULE B Y MOUTH EVERY DAY Oral for 90 Active Vitamin D3 1000 UNIT 1 capsule Orally On ce a day 09/25/2017 Active ZyPREXA 5 MG 1 tablet Orally Once a day Active ProAir HFA 108 (90 Base) MCG/ACT 2 puffs as needed Inhalation every 6 hrs 09/25/2017 Active amLODIPine Besylate 5 MG 1 tablet Oral O nce a day Active Lidocaine-Prilocaine 2.5-2.5 % as directed External Active Omeprazole 20 MG 1 capsule 30 minutes before morning meal Oral Once a day Active HYDROcodone-Acetaminophen 10-325 MG 1 tablet Orally every 4 to 6 hrs as needed for severe pain (max 5x/day) for 30 days 11/11/2024 Active FLUoxetine HCl 40 MG 1 capsule Oral Once a day Active traZODone HCl 100 MG 1 tablet at bedtime Oral Once a day Active methylPREDNISolone 4 MG as directed Orally 025 Active tiZANidine HCl 4 MG 1 tablet as needed O ral 3 x day muscle spasm for 30 days 12/13/2019 Active Rosuvastatin Calcium 20 MG TAKE 1 TABLET BY MOUTH EVERY DAY Oral for 90 Active VITAL SIGNS Blood pressure systolic 193 mm Hg 12/31/19 25 Blood pressure diastolic 114 mm Hg 025 Heart Rate 80 /min 12/30/2024 Respiratory Rate 16 /min 12/30/2024 Height 60 in 12/30/2024 Weight 132 lbs 12/30/2024 BMI 25.78 kg/m2 12/30/2024 Encounters Encounter Location Date Provider Diagnosis [facility] [address] [place] [address] 12/30/2024 Fneg Hendrickson Sacroiliitis, not elsewhere classified M46.1 ASSESSMENTS Encounter Date Diagnosis Assessment Notes Treatment Notes Treatment Clinical Notes Section Notes 12/30/2024 Sacroiliitis, not elsewhere classified (ICD-10 - M46.1) PLAN OF TREATMENT Next Appt Details Follow Up: Before 01/24 OPV/R efill, Reason: Provider Name:Feng bean, 01/14/2025 10:45:00 AM, [address] [place], [address], Procedure Notes * Category Sub-Category Detail Notes Sacroiliac Joint Injection w ith Arthrogram under Fluoroscopy Location Bilateral Anesthesia Local Operative Technique After the risks, mercedez efits, [...] discharged home in good condition with a four horse hitch driver. X-ray time: 12 seconds Progress Notes * Examination Category Sub-Category [...] axial low back pain. Gonzalo's, Gaenslen's and [place]'s tests are positive bilaterally. There is severe [...]
--- NOTE | ~2024-12-31 | DEXA_ITS ---
Bone Density Report Name: MIKE PADGETT Age: 69 Sex: Female Ethnicity: White Date of : 1955 Indication: postmenopausal osteoporosis; monitoring treatment; prior fracture; hysterectomy; Referring Provider: MARISOL VILLASEÑOR Study: Bone densitometry was performed. Exam Date: December 31, 2024 Accession number: [id number] Bone Density: Region BMD T-score Z-score Classification Femoral Neck (Left) 0.334 -4.6 -2.8 Osteoporosis Total Hip (Left) 0.441 -4.1 -2.6 Osteoporosis Femoral Neck (Right) 0.394 -4.1 -2.3 Osteoporosis Total Hip (Right) 0.482 -3.8 -2.2 Osteoporosis Total Hip Mean 0.462 -4.0 -2.4 Osteoporosis World Health Organization criteria for BMD impression classify patients as: Normal (T-score at or above -1.0), Osteopenia (T-score between -1.0 and -2.5), or Osteoporosis (T-score at or below -2.5). 10-year Fracture Risk: FRAX not reported because: Some T-score for Spine Total or Hip Total or Femoral Neck at or below -2.5 Treated for osteoporosis Previous Exams: Region Exam Age BMD T-score BMD Change BMD Change Date g/cm2 vs Baseline vs Previous Total Hip(Left) 12/31/2024 69 0.441 -4.1 -0.069 (-13.5% -0.069 (-13.5% 02/22/2021 65 0.510 -3.5 Total Hip(Right) 12/31/2024 69 0.482 -3.8 0.035 (7.8%)* 0.035 (7.8%)* 02/22/2021 65 0.447 -4.1 *Denotes significance at 95% confidence level, LSC for Total Hip = 0.027 g/cm2 # Denotes dissimilar scan types or analysis methods Clinical Information Provided by Patient: Has had a low trauma fracture Is being treated for osteoporosis Has used the following medications: Vitamin D, Calcium Has the following medical conditions: Hysterectomy Patient maximum height was 60 Menopause Age: 31 No regular weight bearing exercise Onset of menses at age 12 Number of children 1 Missed period for more than 6 months in a row Impression: The patient has established osteoporosis, based on the Left Femoral Neck T-score and the existence of a prior fracture. The patient has risk factors, including: previous fracture. No significant bone loss was observed. Discussion: PATIENT UNDER TREATMENT WITH NO SIGNIFICANT BMD LOSS SINCE LAST EXAM. In an untreated patient, BMD typically declines with age. A lack of decline or gain is usually a sign that treatment is efficacious and fracture risk is reduced. It is important to ask patients whether they are taking their medications and to encourage continued and appropriate compliance with their osteoporosis therapies to reduce fracture risk. It is also important to review their risk factors and encourage appropriate calcium and vitamin D intakes, exercise, fall prevention and other lifestyle measures. Follow-Up: Consider a repeat BMD and Vertebral Fracture Assessment (VFA) exam in 2 years or sooner if medically necessary, to reassess this patient's status. Reported by: GOLDIE on 12/31/2024 9:56:00 AM. Reviewed, dictated and finalized at location A.
--- OUTSIDE RECORDS SUMMARY | 2024-12-31 09:25 | XMS_ITS | Clinical Summary ---
Author Organization [facility] Address [address] [place] [id number] Care Team Providers Care Behavioral Health Consultant Name Role Phone Unavailable Primary Care Provider [...] 08/26/2024 Active fluticasone propionate (FLONASE) 50 mcg/spray [place], Suspension nasal inhaler 2 times daily. 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
--- OUTSIDE RECORDS SUMMARY | 2024-12-31 09:27 | XMS_ITS | Patient Health Record ---
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 Name Role Phone Anabella CARMEN, Joy Primary Care Provider Unavailable Feng Hendrickson Unavailable [phone] ALLERGIES Allergen (clinical drug ingredient) Drug/Non Drug Allergy documented on EMR Reaction Allergy Type Onset Date Status aripiprazole Aripiprazole nausea and vomiting Drug Allergy Active clindamycin Clindamycin diarrhea Drug Allergy Act lucian fentanyl Fentanyl nausea Drug Allergy Active morphine Morphine rash/itching Drug Allergy Acti ve RESULTS Component Value Reference Range Notes Telepathy Results (Not yet reviewed by provider) Interpretation: Performing Lab:[id number] [employer], [address] [address] [facility] [place] [address] Angelika Garcia MD Notes/Report: Codeine negative 1 ng/mL Morphine negative 1 ng/mL Hydrocodone positive-120.252 1 ng/mL Norhydrocodone Quantification positive-8.450 2 ng/mL Hydromorphone negative 1 ng/mL Oxycodone negative 1 ng/mL Noroxycodone Quantification negative 2 ng/mL Oxymorphone negative 1 ng/mL Fentanyl Quantification negative 0.2 ng/mL Norfentanyl Quantification negative 1 ng/mL Methadone negative 2 ng/mL EDDP (Methadone metabolite) negative 2 ng/mL Tramadol Quantification negative 5 ng/mL E-Ibczhyrvk-Kyzywejf Quantification negative 5 ng/ mL Alprazolam negative [...] 6-WALTER (Heroin metabolite) Quantification negative 1 ng/mL [facility] Results (Not yet reviewed by provider) Interpretation: Performing Lab:[id number] [email or web address], [address] [address] [facility] [id number] Angelika Garcia MD Notes/Report: Acetyl fentanyl: Fentanyl [...] 100 ng/mL Tramadol Quantification negative 100 ng/mL D-rhdxenyqh-tyxblzqx Quantification negative 100 n g/mL L-Dpwuapvie-Mesmzfbc Quantification negative 100 n g/mL Alpha-Hydroxyalprazolam Quantification negative 20 ng/mL 5-Uyjmw-Hqwvdweiaj Quantification negative 20 ng/m L Lorazepam Quantification [...] Mitragynine (Kratom alkaloid) Quantification negative 1 ng/mL 8-YE-Qbqsvwwevlp (Kratom alk aloid) Quantification negative 1 ng/mL Ethyl Glucuronide Quantification negative 500 ng/m L Ethyl Sulfate Quantification negative 500 ng/mL [facility] Results (Not yet reviewed by provider) Interpretation: Performing Lab:[id number] [facility], [address] [address] [facility] [place] [address] Angelika Garcia MD Notes/Report: Acetyl fentanyl: Fentanyl [...] 100 ng/mL Tramadol Quantification negative 100 ng/mL G-nzghjlzyw-xcsxhpwi Quantification negative 100 n g/mL N-Itltzywnv-Zwwrwbjg Quantification negative 100 n g/mL Alpha-Hydroxyalprazolam Quantification negative 20 ng/mL 4-Xulcb-Zqtugkmbod Quantification negative 20 ng/m L Lorazepam Quantification negative 40 ng/mL Nordiazepam Quantification negative 40 ng/mL Temazepam Quantification negative 50 ng/mL Oxazepam Quantification negative 40 ng/mL Amphetamine Quantification positive-> 18064 100 ng/mL Methamphetamine Quantification negative 100 ng/mL [...] Mitragynine (Kratom alkaloid) Quantification negative 1 ng/mL 8-PA-Kmkewkvbjqm (Kratom alk aloid) Quantification negative 1 ng/mL Ethyl Glucuronide Quantification negative 500 ng/m L Ethyl Sulfate Quantification negative 500 ng/mL [facility] Results (Not yet reviewed by provider) Interpretation: Performing Lab:[id number] [employer], [address] [address] [facility] [place] [address] Angelika Garcia MD Notes/Report: Acetyl fentanyl: Fentanyl Negative. Acetyl norfentanyl: Fentanyl Negative. Acr yl fentanyl: Fentanyl Negative. Carfentanil: Fentanyl Negative. Para-fluorofent anyl: Fentanyl Negative. Codeine Quantification negative 50 ng/mL Morphine Quantification negative 50 ng/mL Hydrocodone Quantification positive-5428.451 50 ng/mL Norhydrocodone Quantification positive-2799.099 50 ng/ mL Hydromorphone Quantification positive-154.154 50 ng/mL Oxycodone Quantification negative 50 ng/mL Noroxycodone Quantification negative 50 ng/mL Oxymorphone Quantification negative 50 ng/mL Fentanyl Quantification negative 1 ng/mL Norfentanyl Quantification negative 8 ng/mL Methadone Quantification negative 100 ng/mL EDDP (Methadone metabolite) Quantification negative 100 ng/mL Tramadol Quantification negative 100 ng/mL L-izuvqcniw-uxabahar Quantification negative 100 n g/mL V-Ckxahlcjg-Tqylpuen Quantification negative 100 n g/mL Alpha-Hydroxyalprazolam Quantification positive-415.44 9 20 ng/mL 2-Ymypi-Jvyymyzwtg Quantification negative 20 ng/m L Lorazepam Quantification negative 40 ng/mL Nordiazepam Quantification negative 40 ng/mL Temazepam Quantification negative 50 ng/mL Oxazepam Quantification negative 40 ng/mL Amphetamine Quantification positive-> 45068 100 ng/mL Methamphetamine Quantification negative 100 ng/mL [...] Mitragynine (Kratom alkaloid) Quantification negative 1 ng/mL 1-CS-Qfwnwkzszlr (Kratom alk aloid) Quantification negative 1 ng/mL Ethyl Glucuronide Quantification negative 500 ng/m L Ethyl Sulfate Quantification negative 500 ng/mL REASON FOR REFERRAL No Information MEDICATIONS Medication SIG (Take, Route, Frequency, Duration) Notes Start Date End Date Status Vitamin D3 1000 UNIT 1 capsule Orally On ce a day 09/25/2017 Active ZyPREXA 5 MG 1 tablet Orally Once a day Active Omeprazole 20 MG 1 capsule 30 minutes before morning meal Oral Once a day Active ProAir HFA 108 (90 Base) MCG/ACT 2 puffs as needed Inhalation every 6 hrs 09/25/2017 Active amLODIPine Besylate 5 MG 1 tablet Oral O nce a day Active Lidocaine-Prilocaine 2.5-2.5 % as directed External Active HYDROcodone-Acetaminophen 10-325 MG 1 tablet Orally every 4 to 6 hrs as needed for severe pain (max 5x/day) for 30 days 11/11/2024 Active tiZANidine HCl 4 MG 1 tablet as needed O ral 3 x day muscle spasm for 30 days 12/13/2019 Active Rosuvastatin Calcium 20 MG TAKE 1 TABLET BY MOUTH EVERY DAY Oral for 90 Active FLUoxetine HCl 40 MG 1 capsule Oral Once a day Active traZODone HCl 100 MG 1 tablet at bedtime Oral Once a day Active methylPREDNISolone 4 MG as directed Orally 025 Active Amphetamine-Dextroamphetamin e 20 MG TAKE 1 TABLET BY MOUTH EVERY DAY Oral for 30 Active Donepezil HCl 5 MG TAKE 1 TABLET BY ROYA TH EVERYDAY AT BEDTIME Oral for 90 Active hydrOXYzine HCl 25 MG TAKE 1 TABLET BY [facility] THREE TIMES A DAY NEEDED FOR ANXIETY Oral for 10 Active NIFEdipine ER Osmotic Releas e 30 MG 30 MG ORALLY DAILY Oral for 90 Active Ferrous Sulfate 325 (65 Fe) MG 325 MG ORALLY TWICE A DAY Oral for 90 Active Chlorthalidone 25 MG TAKE 1 TABLET BY MO VTH EVERY DAY Oral for 90 Active Narcan 4 MG/0.1ML 1 actuation in one nostril x1, Nasally 2-3 minutes as needed until the patient is responsive or EMS arrives Active Irbesartan 150 MG TAKE 1 TABLET BY ROYA TH EVERY DAY Oral for 90 Active Metoprolol Succinate ER 25 MG TAKE 1 TAB LET BY MOUTH EVERY DAY Oral for 90 Active Losartan Potassium-HCTZ 100-25 MG TAKE 1 TABLET BY MOUTH EVERY DAY Oral for 90 Active Fluticasone Propionate 50 MCG/ACT 1 spray in each nostril Nasal Twice a day Active Carvedilol 3.125 MG TAKE 1 TABLET BY ROYA TH EVERY 12 HOURS WITH A MEAL/FOOD Oral for 90 Active rOPINIRole HCl 0.5 MG 1 tablet 1 to 3 ho urs before bedtime Orally Once a day Active Spironolactone 25 MG Oral for 90 Active Voltaren 1 % apply 4 grams to painful joint(s) Transdermal 4x/day as needed for pain for 30 days Active Albuterol Sulfate HFA 108 (9 0 Base) MCG/ACT Inhalation for 16 Active Losartan Potassium 25 MG 1 tablet Oral O nce a day Active Prolia 60 MG/ML Subcutaneous for 180 Active [facility] D3 50 MCG (2000 UT) TAKE 1 CAPSULE B Y MOUTH EVERY DAY Oral for 90 Active Fluticasone-Salmeterol 250-5 0 MCG/ACT Inhalation for 30 Active SOCIAL HISTORY Tobacco Use: [...] support system with her uncle and brother. [employer] The patient is disabled and last worked in 1986. She is and has 2 children. 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 [employer] The patient is disabled and last worked in 1986. She is and has 2 children. 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 She is and has 2 children. 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 She is and has 2 children. She reports having a good support system with her uncle and brother. 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 She is and has 2 children. She reports having a good support system with her uncle and brother. 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 She reports having a good support system with her uncle and brother. 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 She reports having a good support system with her uncle and brother. 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 She reports having a good support system with her uncle and brother. 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 She reports having a good support system with her uncle and brother. 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 She reports having a good support system with her uncle and brother. 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 She reports having a good support system with her uncle and brother. 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 She reports having a good support system with her uncle and brother. 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 She reports having a good support system with her uncle and brother. 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 She reports having a good support system with her uncle and brother. 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 She reports having a good support system with her uncle and brother. 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 She reports having a good support system with her uncle and brother. 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 She reports having a good support system with her uncle and brother. 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 She reports having a good support system with her uncle and brother. 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 She is and has 2 children. She reports having a good support system with her uncle and brother. 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 She is and has 2 children. She reports having a good support system with her uncle and brother. 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 She reports having a good support system with her uncle and brother. 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 She is and has 2 children. She reports having a good support system with her uncle and brother. 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 She is and has 2 children. She reports having a good support system with her uncle and brother. 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 She is and has 2 children. She reports having a good support system with her uncle and brother. [employer] The patient is disabled and last worked [...] support system with her uncle and brother. 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 She reports having a good support system with her uncle and brother. 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 She reports having a good support system with her uncle and brother. [employer] The patient is disabled and last worked [...] (F40.231) Active confirmed Fear of medical treatment (150599499) Problem Brachial plexus disorders (G54.0) Active confirmed Brachial p cassandra disorder (0983182) Problem Chronic pain syndrome (G89.4) Active confirmed Chronic ji n syndrome (318209822) Problem Unilateral primary osteoarthritis, left knee (M17.12) Active confirmed Osteoarth ritis of knee (697075620) Problem Unspecified osteoarthritis, unspecified site (M19.90) Active confirmed Osteoarthritis (581122464) Problem Pain in right shoulder (M25.511) Active confirmed Pain of r ight shoulder region (finding) (6053142839) Problem Pain in left shoulder (M25.512) Active confirmed Shoulder joint pain (453726767) Problem Sacroiliitis, not elsewhere classified (M46.1) Active confirmed Solitary sacroiliitis (170866719) Problem Spondylosis without myelopathy or radiculopathy, lumbar region (M47.816) Active confirmed Lumbosacral spondylosis without myelopathy (02486095) Problem Spondylosis without myelopathy or radiculopathy, lumbosacral region (M47.817) Active confirmed Lumbosacral spondylosis without myelopathy (disorder) (21367569) Problem Intervertebral disc disorders with radiculopathy, lumbar 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) Active confirmed Radiculopathy due to lumbar intervertebral disc disorder (736797879650492 ) L4-5 HNP Problem Other intervertebral disc degeneration, 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 confirmed Degeneration of lumbar intervertebral disc (00325968) Problem Radiculopathy, thoracic region (M54.14) Active confirmed Thoracic radiculopathy (35343995) Problem Radiculopathy, lumbar region (M54.16) Active confirmed Lumbar radiculopathy (763267410) Problem Radiculopathy, lumbosacral region (M54.17) Active confirmed Lumbosacral radiculopathy (5734694) Problem Postlaminectomy syndrome, not elsewhere classified (M96.1) Active confirmed Post-lami nectomy syndrome (81348671) Problem Osseous stenosis of neural canal 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) Active confirmed Spinal stenosis of lumbar region (13369238) Problem Intervertebral disc stenosis of neural canal of lumbar region (M99.53) Active confirmed Spinal stenosis of lumbar region (75385533) Problem retirement (current) use of anticoagulants (Z79.01) Active confirmed Long-term current use of anticoagulant (372424090) 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 Blood pressure diastolic 114 mm Hg 12/30/2024 Height 60 in 12/30/2024 Blood pressure systolic 193 mm Hg 12/30/2024 Weight 132 lbs 12/30/2024 BMI 25.78 kg/m2 12/30/2024 Encounters Encounter Location Date Provider Diagnosis [facility] [address] [place] [phone] 01/02/2024 Feng Stynowick Sacroiliitis, not elsewhere classified M46.1 [facility] [address] [place] [phone] 01/25/2024 Feng Stynowick Radiculopathy, lumba r region M54.16 ; Sacroiliitis, not elsewhere classified M46.1 ; Spondylosis without myelopathy or radiculopathy, lumbar region M47.816 ; Postlaminectomy syndrome, not elsewhere classified M96.1 ; Other intervertebral disc degeneration, lumbar region M51.36 ; Osseous stenosis of neural canal of lumbar region M99.33 ; 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 and 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 Z79.891 [facility] [address] [place] [address] 01/29/2024 Feng Stynowick Radiculopathy, lumba r region M54.16 ; Sacroiliitis, not elsewhere classified M46.1 ; Spondylosis without myelopathy or radiculopathy, lumbar region M47.816 ; Postlaminectomy syndrome, not elsewhere classified M96.1 ; Other intervertebral disc degeneration, lumbar region M51.36 ; Osseous stenosis of neural canal of lumbar region M99.33 ; 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 and retirement (current) use of opiate analgesic Z79.891 [facility] [address] [place] [address] 01/29/2024 Feng Stynowick Radiculopathy, lumba r region M54.16 [facility] [address] [place] [address] [place] [address] 02/06/2024 Feng Stynowick Radiculopathy, lumba r region M54.16 ; Sacroiliitis, not elsewhere classified M46.1 ; Spondylosis without myelopathy or radiculopathy, lumbar region M47.816 ; Postlaminectomy syndrome, not elsewhere classified M96.1 ; Other intervertebral disc degeneration, lumbar region M51.36 ; Osseous stenosis of neural canal of lumbar region M99.33 ; 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 and retirement (current) use of opiate analgesic Z79.891 [facility] [address] [place] [address] [place] [address] 02/16/2024 Feng Stynowick Radiculopathy, lumba r region M54.16 ; Intervertebral disc disorders with radiculopathy, lumbar region M51.16 and Osseous stenosis of neural canal of lumbar region M99.33 [facility] [address] [place] [address] [place] [address] 02/19/2024 Feng Stynowick Radiculopathy, lumba r region M54.16 [facility] [address] [place] [address] [place] [address] 03/06/2024 Feng Stynowick Radiculopathy, lumba r region M54.16 ; Spondylosis without myelopathy or radiculopathy, lumbar region M47.816 ; Sacroiliitis, not elsewhere classified M46.1 ; Postlaminectomy syndrome, not elsewhere classified M96.1 ; Other intervertebral disc degeneration, lumbar region M51.36 ; Osseous stenosis of neural canal of lumbar region M99.33 ; 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 and 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 Z79.891 [facility] [address] [place] [address] [place] [address] 03/18/2024 Feng Stjohnna [facility] [address] [place] [address] [place] [address] 03/26/2024 Feng Stynvikas Spondylosis without myelopathy or radiculopathy, lumbar region M47.816 and Spondylosis without myelopathy or radiculopathy, lumbosacral region M47.817 [facility] [address] [place] [address], [place] [address] 03/27/2024 Feng Stynchrissyick [facility] [address] [place] [address] 04/05/2024 Feng Stynowick Radiculopathy, lumba r region M54.16 ; Spondylosis without myelopathy or radiculopathy, lumbar region M47.816 ; Sacroiliitis, not elsewhere classified M46.1 ; Postlaminectomy syndrome, not elsewhere classified M96.1 ; Other intervertebral disc degeneration, lumbar region M51.36 ; Osseous stenosis of neural canal of lumbar region M99.33 ; 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 and retirement (current) use of opiate analgesic Z79.891 [facility] [address] [place] [address] 04/26/2024 Feng Stynowick Radiculopathy, lumba r region M54.16 [facility] [address] [place] [address], [place] [address] 05/03/2024 Feng Stynowick Spondylosis without myelopathy or radiculopathy, lumbar region M47.816 ; Sacroiliitis, not elsewhere classified M46.1 ; Radiculopathy, lumbar region M54.16 ; Postlaminectomy syndrome, not elsewhere classified M96.1 ; Other intervertebral disc degeneration, lumbar region M51.36 ; Osseous stenosis of neural canal of lumbar region M99.33 ; 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 and retirement (current) use of opiate analgesic Z79.891 [facility] [address] [place] [address], [place] [address] 05/10/2024 Feng Stynowick Sacroiliitis, not elsewhere classified M46.1 [facility] [address] [place] [phone] 06/03/2024 Feng Stynowick Sacroiliitis, not elsewhere classified M46.1 ; Radiculopathy, lumbar region M54.16 ; Spondylosis without myelopathy or radiculopathy, lumbar region M47.816 ; Postlaminectomy syndrome, not elsewhere classified M96.1 ; Other intervertebral disc degeneration, lumbar region M51.36 ; Osseous stenosis of neural canal of lumbar region M99.33 ; 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 and 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17 and Osseous stenosis of neural canal of lumbar region M99.33 [facility] [address] [place] [address], [place] [address] 07/08/2024 Feng Stynowick Radiculopathy, lumba r region M54.16 [facility] [address] [place] [address] 07/30/2024 Feng Stynowick Radiculopathy, lumba r region M54.16 [facility] [address] [place] [address] 07/31/2024 Feng Stynowick Radiculopathy, lumba r region M54.16 ; Radiculopathy, lumbosacral region M54.17 ; Osseous stenosis of neural canal of lumbar region M99.33 ; Sacroiliitis, not elsewhere classified M46.1 and 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 Z79.891 [facility] [address] [place] [address] [place] [address] 08/28/2024 Feng Stynowick Radiculopathy, lumba r region M54.16 ; Sacroiliitis, not elsewhere classified M46.1 ; Radiculopathy, lumbosacral region M54.17 ; Osseous stenosis of neural canal of lumbar region M99.33 and 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 Z79.891 [facility] [address] [place] [address] [place] [address] 09/06/2024 Feng Stynowick Sacroiliitis, not elsewhere classified M46.1 [facility] [address] [place] [address] [place] [address] 09/27/2024 Feng Stynowick Sacroiliitis, not elsewhere classified M46.1 ; Spondylosis without myelopathy or radiculopathy, lumbar region M47.816 ; Radiculopathy, lumbar region M54.16 ; Postlaminectomy syndrome, not elsewhere classified M96.1 ; 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 Z79.891 ; Radiculopathy, lumbosacral region M54.17 and Spondylosis without myelopathy or radiculopathy, lumbosacral region M47.817 [facility] [address] [place] [address], [place] [address] 10/09/2024 Feng Stynowick Spondylosis without myelopathy or radiculopathy, lumbar region M47.816 and Spondylosis without myelopathy or radiculopathy, lumbosacral region M47.817 [facility] [address] [place], [place] [address], [place] [address] 10/10/2024 Feng Stynowick [facility] [address] [place] [address] 10/16/2024 Feng [place] Radiculopathy, lumba r region M54.16 [facility] [address] [place] [address] [place] [address] 10/24/2024 Feng [place] Spondylosis without myelopathy or radiculopathy, lumbar region M47.816 ; Postlaminectomy syndrome, not elsewhere classified M96.1 ; Spondylosis without myelopathy or radiculopathy, lumbosacral region M47.817 ; Radiculopathy, lumbar region M54.16 and Radiculopathy, lumbosacral region M54.17 [facility] [address] [place] [address] [place] [address] 11/11/2024 Feng [place] Postlaminectomy syndrome, not elsewhere classified M96.1 ; Radiculopathy, lumbar region M54.16 ; Spondylosis without myelopathy or radiculopathy, lumbar region M47.816 ; Spondylosis without myelopathy or radiculopathy, lumbosacral region M47.817 and Radiculopathy, lumbosacral region M54.17 [facility] [address] [facility] [place] [address] 11/18/2024 Feng [place] Radiculopathy, lumba r region M54.16 ; Radiculopathy, lumbosacral region M54.17 and Osseous stenosis of neural canal of lumbar region M99.33 [facility] [address] [facility] [place] [address] 11/21/2024 Feng [place] [facility] [address] [place] [address] 11/21/2024 Feng [place] Radiculopathy, lumba r region M54.16 ; Radiculopathy, lumbosacral region M54.17 and Osseous stenosis of neural canal of lumbar region M99.33 [facility] [address] [facility] [place] [address] 12/02/2024 Feng [place] Radiculopathy, lumba r region M54.16 [facility] [address] [facility] [place] [address] 12/25/2024 Feng [place] Radiculopathy, lumba r region M54.16 ; Sacroiliitis, not elsewhere classified M46.1 ; Radiculopathy, lumbosacral region M54.17 ; 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 The [facility] PDMP were reviewed and were appropriate 01/29/2024 [...] fully comply with the above. The [facility] PDMP were reviewed and were appropriate 01/29/2024 [...] comply with the above. The [place] PDMP were reviewed and were appropriate 02/06/2024 [...] comply with the above. The [place] PD[place] were reviewed and were [...] comply with the above. The [place] PD[place] were reviewed and were [...] fully comply with the above. The [facility] PDMP were reviewed and were appropriate 07/01/2024 [...] comply with the above. The [place] PD[place] were reviewed and were [...] comply with the above. The [place] PD[place] were reviewed and were appropriate 08/28/2024 [...] comply with the above. The [place] PD[place] were reviewed and were appropriate 11/11/2024 [...] comply with the above. The [place] PD[place] were reviewed and were appropriate 11/11/2024 [...] 11/21/2024 Radiculopathy, lumbosacral region (ICD-10 - M54.17) 12/02/2024 Radiculopathy, lumbar region (ICD-10 - M54.16) 12/25/2024 Radiculopathy, lumbar region (ICD-10 - M54.16) [...] is agreeable to proceeding at this time. 12/30/2024 Sacroiliitis, not elsewhere classified (ICD-10 - M46.1) 12/25/2024 Radiculopathy, lumbosacral region (ICD-10 - M54.17) 11/21/2024 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) 11/18/2024 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) 11/11/2024 Spondylosis without myelopathy or radiculopathy, lumbar region (ICD-10 - M47.816) 10/24/2024 Spondylosis without myelopathy or radiculopathy, 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) 09/27/2024 Radiculopathy, lumbar region (ICD-10 - M54.16) [...] comply with the above. The [place] PD[place] were reviewed and were appropriate 08/28/2024 Radiculopathy, lumbosacral region (ICD-10 - M54.17) [...] comply with the above. The [place] PD[place] were reviewed and were appropriate 06/03/2024 [...] comply with the above. The [place] PD[place] were reviewed and were [...] not elsewhere classified (ICD-10 - M46.1) 01/25/2024 Spondylosis without myelopathy or radiculopathy, lumbar region (ICD-10 - M47.816) 01/29/2024 Spondylosis without myelopathy or radiculopathy, lumbar region (ICD-10 - M47.816) 08/28/2024 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) 07/31/2024 Sacroiliitis, not elsewhere classified (ICD-10 - M46.1) 09/27/2024 Postlaminectomy syndrome, not elsewhere classified (ICD-10 - M96.1) 07/01/2024 Postlaminectomy syndrome, not elsewhere classified (ICD-10 - M96.1) 06/03/2024 Postlaminectomy syndrome, not elsewhere classified (ICD-10 - M96.1) 10/24/2024 Radiculopathy, lumbar region (ICD-10 - M54.16) 05/03/2024 Postlaminectomy syndrome, not elsewhere classified (ICD-10 - M96.1) 04/05/2024 Postlaminectomy syndrome, not elsewhere classified (ICD-10 - M96.1) 11/11/2024 Spondylosis without myelopathy or radiculopathy, 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) 03/06/2024 Postlaminectomy syndrome, not elsewhere classified (ICD-10 - M96.1) 12/25/2024 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) 02/06/2024 Postlaminectomy syndrome, not elsewhere classified (ICD-10 - M96.1) 10/24/2024 Radiculopathy, lumbosacral region (ICD-10 - M54.17) 11/11/2024 Radiculopathy, lumbosacral region (ICD-10 - M54.17) 09/27/2024 retirement (current) use of opiate analgesic (ICD-10 - Z79.891) 08/28/2024 retirement (current) use of opiate analgesic (ICD-10 - 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 12/25/2024 Postlaminectomy syndrome, not elsewhere classified (ICD-10 [...] comply with the above. 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 Patient verbalized understanding and agrees with current plan. 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) 01/29/2024 retirement (current) use of opiate analgesic (ICD-10 - Z79.891) 01/25/2024 retirement (current) use of opiate analgesic (ICD-10 - Z79.891) 01/25/2024 Other The above-named patient was evaluated [...] with Patient and Medical Decision Makin minutes 12/25/2024 Other The above-named patient was evaluated [...] Lumbar Spine with and without Cont rast (10657) 04/25/2022 MRI : Lumbar Spine with and without Cont rast (30185) 02/01/2022 MRI : Thoracic Spine without Contrast (7 2145) 12/25/2024 XRAY right shoulder 09/09/2020 [facility] 01/03/2022 [facility] 03/29/2022 [facility] 09/16/2022 [facility] 06/01/2023 [facility] 08/28/2023 [facility] 11/29/2023 [facility] 03/06/2024 [facility] 05/31/2024 [facility] 08/27/2024 [facility] 12/25/2024 Next Appt Details Provider Name:Feng bean, 01/14/2025 10:45:00 AM, [address] [place], [address], Insurance Providers Payer Name Payer Address Payer Phone Subscriber Number Group Number Insured Name Patient Relationship to Insured Coverage Start Date Coverage End Date [employer] Claims [address] [address] [place] [address] [phone] [id number] MIKE PADGETT Self - patient is the insured 8 MEDICAL (GENERAL) HISTORY Medical History History ICD Code Hypertension Stomach Ulcers Depression Insomnia GERD Anemia Asthma Migraine Surgical History Surgery Date(Month/Year) Pain Pump Removal 2011 Multiple Lumbar Surgeries
--- OUTSIDE RECORDS SUMMARY | 2024-12-31 09:27 | XMS_ITS | Clinical Summary ---
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 Gender Identity Not on file Sexual Orientation Not on file Last Filed Vital Signs Vital Sign Reading Time Taken Comments Blood Pressure 120/64 01/04/2017 12:58 PM MUSIC MIXER Pulse 65 01/04/2017 12:58 PM MUSIC MIXER Temperature 36.5 C (97.7 F) 01/04/2017 12:58 PM MUSIC MIXER Respiratory Rate 18 01/04/2017 12:58 PM MUSIC MIXER Oxygen Saturation 97% 01/04/2017 12:58 PM MUSIC MIXER Inhaled Oxygen Concentration - - Weight 62.6 kg (138 lb) 01/04/2017 12:58 PM MUSIC MIXER Height 152.4 cm (5') 01/04/2017 12:58 PM MUSIC MIXER Body Mass Index 26.95 01/04/2017 12:58 PM MUSIC MIXER Plan of Treatment Health Maintenance Due Date [...] or will be contacted. Electronically signed by: Nathna clark/suzie:05/15/2017 14:18:37 Developer Architect: Cher CARPENTER(Tigre)(Aurelia), [facility] letter sent: Additional Imaging Reading location: [facility] BI-RADS: 0 Additional Imaging Evaluation Needed [...] signed by: Nathan Rojas M.D. bs/suzie:05/15/2017 14:18:37 Developer Architect: Cher LR)(Aurelia), [facility] letter sent: Additional Imaging Reading location: [facility] BI-RADS: 0 Additional Imaging Evaluation Needed [facility] Mario Britt MD IMG MAMMO ORDERABLES Kena l Result from Last 3 Months or Most Recently Relevant to Health Maintenance Insurance MEDICARE C HUMANA
== END 2024-12-31 09:08 | disposition home or self-care (01) ==
PROVIDERS: PCP Family Medicine; Visit Provider Nurse Practitioner Family
DX: Z78.0 Asymptomatic menopausal state (principal); M81.0 Age-related osteoporosis without current pathological fracture
CPT/HCPCS: 77080

== ENCOUNTER 2025-01-24 15:08 | Outpatient (CLI) | payer MEDICARE, SELFPAY ==
--- NOTE | 2025-01-24 | ECG_ITS ---
Test Date: 2025-01-24 15:31:50 Measurements Intervals [place] Rate: 63 P: 60 IN: 157 QRS: 54 QRSD: 80 T: 81 QT: 455 QTc: 469 Interpretive Statements SINUS RHYTHM LEFT VENTRICULAR HYPERTROPHY AND ST-T CHANGE BASELINE ARTIFACT- V4-V5 BORDERLINE ECG Compared to ECG 01/29/2024 11:47:55 NO SIGNIFICANT CHANGE Electronically Signed On 01-24-2025 15:33:56 CONTINUOUS IMPROVEMENT LEAD by Rodolfo Colvin D.O.
--- OUTSIDE RECORDS SUMMARY | 2025-01-24 15:39 | XMS_ITS | Clinical Summary ---
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 Gender Identity Not on file Sexual Orientation Not on file Last Filed Vital Signs Vital Sign Reading Time Taken Comments Blood Pressure 120/64 01/04/2017 12:58 PM SUPERVISOR BREW HOUSE Pulse 65 01/04/2017 12:58 PM SUPERVISOR BREW HOUSE Temperature 36.5 C (97.7 F) 01/04/2017 12:58 PM SUPERVISOR BREW HOUSE Respiratory Rate 18 01/04/2017 12:58 PM SUPERVISOR BREW HOUSE Oxygen Saturation 97% 01/04/2017 12:58 PM SUPERVISOR BREW HOUSE Inhaled Oxygen Concentration - - Weight 62.6 kg (138 lb) 01/04/2017 12:58 PM SUPERVISOR BREW HOUSE Height 152.4 cm (5') 01/04/2017 12:58 PM SUPERVISOR BREW HOUSE Body Mass Index 26.95 01/04/2017 12:58 PM SUPERVISOR BREW HOUSE Plan of Treatment Health Maintenance Due Date [...] contacted. Electronically signed by: Nathan clark/suzie:05/15/2017 14:18:37 Marketing Project Coordinator: Cher CARPENTER(Tigre)(Aurelia), [facility] letter sent: Additional Imaging Reading location: [facility] BI-RADS: 0 Additional Imaging Evaluation Needed [...] signed by: Nathan Rojas M.D. bs/suzie:05/15/2017 14:18:37 Marketing Project Coordinator: Cher LR)(Aurelia), [facility] letter sent: Additional Imaging Reading location: [facility] BI-RADS: 0 Additional Imaging Evaluation Needed [facility] Mairo Britt MD IMG MAMMO ORDERABLES Kena l Result from Last 3 Months or Most Recently Relevant to Health Maintenance Insurance MEDICARE C HUMANA
--- OUTSIDE RECORDS SUMMARY | 2025-01-24 15:39 | XMS_ITS | Clinical Summary ---
Author Organization [facility] Address [address] [place] [address] [place] [address] Care Team Providers Care 1St [employer] Name Role Phone Unavailable Primary Care Provider [...] 08/26/2024 Active fluticasone propionate (FLONASE) 50 mcg/spray [place], Suspension nasal inhaler 2 times daily. 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
--- OUTSIDE RECORDS SUMMARY | 2025-01-24 15:39 | XMS_ITS | Clinical Summary ---
Author Organization [facility] Address [address] [place] [id number] Care Team Providers Care Inside Sales Professional Name Role Phone Saleem Blanco MD Primary Care Provider + Encounters Date Type Department Care Team Description 01/08/2025 12:47 PM MANAGER OF BROADCAST CONTENT - 01/08/2025 11:59 PM MANAGER OF BROADCAST CONTENT Hospital Encounter [address] [id number] Radiculopathy, thoracic region Discharge Disposition: Discharge to home or self care from Last 3 Months Social History Tobacco Use Types Packs/Day Years Used Date Smoking Tobacco: Never Assessed Comments Unknown Sex and Gender Information Value Date Recorded Sex Assigned at Not on file Legal Sex Female 2:14 AM MANAGER OF BROADCAST CONTENT Gender Identity Not on file Sexual Orientation Not on file Last Filed Vital Signs Vital Sign Reading Time Taken Comments Blood Pressure - - Pulse - - Temperature - - Respiratory Rate - - Oxygen Saturation - - Inhaled Oxygen Concentration - - Weight 50.8 kg (112 lb) 01/06/2025 1:29 PM MANAGER OF BROADCAST CONTENT Height - - Body Mass Index - - Plan of Treatment Health Maintenance Due Date Last Done Comments Colon Cancer Screening-Colonoscopy 1954 Depression Screening 1954 Fall Risk Assessment 1954 Hepatitis C Screening 1954 Osteoporosis Screening-Bone Density Scan 1954 Hepatitis B Screening 1972 Zoster Vaccine (1 of 2) 2004 Breast Cancer Screening-Mammogram 2018 018, 2017 Well Visit 65+ 05/13/2019 DTaP/Tdap/Td Vaccine (2 - Td or Tdap) 12/05/2023 12/04/2013, 06/09/2005 Covid-19 Vaccine (2024-2 6 season) 2024 05/22/2020, 05/01/2020 Pneumococcal vaccine 65+ Completed 04/05/2024, 09/2014 Influenza Vaccine Completed 12/27/2024, , 12/06/2021, Additional history exists Procedures Procedure Name Priority Date/Time Associated Diagnosis Comments MRI THORACIC SPINE WO CONTRAST Schedule Routine, Read Routine (OP Routine) 01/08/2025 1:24 PM MANAGER OF BROADCAST CONTENT Radiculopathy, thoracic region from Last 3 Months Results * MRI Thoracic Spine WO Contrast (01/08/2025 1:24 PM MANAGER OF BROADCAST CONTENT) Anatomical Region Laterality Modality Spine N/A Magnetic Resonan ce 01/08/2025 1:56 PM MANAGER OF BROADCAST CONTENT Impressions 01/08/2025 1:56 PM MANAGER OF BROADCAST CONTENT 1. Superior endplate of T6 subacute appearing fracture as above. Please correlate with point tenderness. 2. Multilevel thoracic disc degeneration with thickened ligamentum flavum and facet arthropathy as described. No high-grade spinal canal stenosis. 3. Previous imaging studies are not available for comparison. Electronically signed by: Ranjit Burroughs D.O. Narrative 01/08/2025 1:56 PM MANAGER OF BROADCAST CONTENT EXAM DESCRIPTION:MRI THORACIC SPINE WO CONTRAST REASON FOR STUDY:m54.14 TECHNIQUE: Sagittal and Axial imaging includes T1, T2, STIR and gradient echo sequences. COMPARISON:None available FINDINGS: Multiple of the sequences are degraded by motion and pulsation related artifact. ALIGNMENT: Exaggerated upper thoracic kyphosis. Mild anterolisthesis of T2 on T3 and T3 and T4. VERTEBRAE: Superior endplate of T6 compression deformity without significant retropulsion of the posterior fragment. There is mild adjacent STIR hyperintense signal suggesting acute to subacute injury. 50% anterior height loss. Schmorl's node/chronic endplate deformities of T4, T5, T6 and T12. Multilevel endplate degenerative changes with marginal spur formation. DISCS: Multilevel disc desiccation and height loss. HARDWARE: None in the spine. CORD: The cord is not well-visualized due to prominent pulsation related artifact. INDIVIDUAL LEVELS: T2-T3, T3-T4 and T4-T5: Minor disc bulge with facet arthropathy. No significant spinal canal or neural foraminal narrowing. T5-T6: Disc bulge with thickened ligamentum flavum and facet arthropathy. No significant spinal canal or neural foraminal narrowing. T6-T7 through T9-T10: Disc bulges with thickened ligamentum flavum and facet arthropathy. No significant spinal canal or neural foraminal narrowing. T11-T12: Disc bulge and retropulse posterior corner of T12 flattens the ventral thecal sac. Thickened ligamentum flavum and facet arthropathy. No significant neural foraminal narrowing. At the remainder of the thoracic levels no significant disc bulge, spinal canal or neural foraminal narrowing. LOWER CERVICAL:Incompletely imaged. Moderate cervical degenerative changes. UPPER LUMBAR: Incompletely imaged. No significant spinal canal stenosis. OTHER: Partially imaged right kidney with rounded T2 hyperintense foci are incompletely characterized Procedure Note Ranjit Burroughs, DO - 01/08/2025 EXAM DESCRIPTION:MRI THORACIC SPINE WO CONTRAST REASON FOR STUDY:m54.14 TECHNIQUE: Sagittal and Axial imaging includes T1, T2, STIR and gradient echo sequences. COMPARISON:None available FINDINGS: Multiple of the sequences are degraded by motion and pulsation related artifact. ALIGNMENT: Exaggerated upper thoracic kyphosis. Mild anterolisthesis of T2 on T3 and T3 and T4. VERTEBRAE: Superior endplate of T6 compression deformity without significant retropulsion of the posterior fragment. There is mild adjacent STIR hyperintense signal suggesting acute to subacute injury. 50% anterior height loss. Schmorl's node/chronic endplate deformities of T4, T5, T6 and T12. Multilevel endplate degenerative changes with marginal spur formation. DISCS: Multilevel disc desiccation and height loss. HARDWARE: None in the spine. CORD: The cord is not well-visualized due to prominent pulsation related artifact. INDIVIDUAL LEVELS: T2-T3, T3-T4 and T4-T5: Minor disc bulge with facet arthropathy. No significant spinal canal or neural foraminal narrowing. T5-T6: Disc bulge with thickened ligamentum flavum and facet arthropathy. No significant spinal canal or neural foraminal narrowing. T6-T7 through T9-T10: Disc bulges with thickened ligamentum flavum and facet arthropathy. No significant spinal canal or neural foraminal narrowing. T11-T12: Disc bulge and retropulse posterior corner of T12 flattens the ventral thecal sac. Thickened ligamentum flavum and facet arthropathy. No significant neural foraminal narrowing. At the remainder of the thoracic levels no significant disc bulge, spinal canal or neural foraminal narrowing. LOWER CERVICAL:Incompletely imaged. Moderate cervical degenerative changes. UPPER LUMBAR: Incompletely imaged. No significant spinal canal stenosis. OTHER: Partially imaged right kidney with rounded T2 hyperintense foci are incompletely characterized IMPRESSION: 1. Superior endplate of T6 subacute appearing fracture as above. Please correlate with point tenderness. 2. Multilevel thoracic disc degeneration with thickened ligamentum flavum and facet arthropathy as described. No high-grade spinal canal stenosis. 3. Previous imaging studies are not available for comparison. Electronically signed by: Ranjit Burroughs D.O. Feng Hendrickson MD IMG MRI PROCEDURES F inal Result from Last 3 Months Insurance [employer] MED[employer]ARE HMO Care Teams Inside Sales Professional Relationship Specialty Start Date End Date Saleem Blanco MD [address] [place], [place] [phone] PCP - General Emergency Medicine 01/29/24
--- OUTSIDE RECORDS SUMMARY | 2025-01-24 15:40 | XMS_ITS | Clinical Summary ---
Author Organization [facility] Address [address] [place] [address] Care Team Providers Care Corporate Staff Accountant Name Role Phone Dolly Grimes VALET MANAGER Primary Care Provider + [phone] Allergies Active Allergy Reactions Criticality Noted Date [...] Department Care Team Description 11/25/2024 Orders Only [facility] [place] [address] Marisel Delacruz MD 11/25/2024 Pre-Procedure Call [facility] [place] [address] Rayo Vogel MD Preprocedure Call from Last 3 Months [...] Sex Assigned at Female 04/18/2024 4:10 PM LASTING MACHINE OPERATOR HAND METHOD Legal Sex Female 4:08 PM LASTING MACHINE OPERATOR HAND METHOD Gender Identity Not on file Sexual Orientation [...] this topic Insurance [employer] MED[employer] Care Teams Corporate Staff Accountant Relationship Specialty Start Date End Date Dolly Grimes FNP [address] [place] [address] [address] PCP - General Nurse Practitioner Family 05/21/24
[2025-01-24 16:08] LABS: Hematocrit 35.4 % (37.0-47.0); Hemoglobin 11.3 g/dL (12.0-15.0); Mean Corpuscular HGB Conc 31.9 g/dl (32-36); Mean Corpuscular Hemoglobin 28.5 pg (26-34); Mean Corpuscular Volume 89.4 fl (80-100); Platelet Count Result 183 k/mm3 (150-375); Red Blood Count 3.96 M/mm3 (4.2-5.4); White Blood Count 4.9 K/mm3 (4.5-10.0)
[2025-01-24 16:33] LABS: Anion Gap 6 mmol/L (4-12); Blood Urea Nitrogen 38 mg/dL (7-17); Calcium 9.2 mg/dL (8.4-10.2); Carbon Dioxide 24 mmol/L (22-30); Chloride 109 mmol/L (98-107); Estimated Glomerular Filt Rate 32; Glucose 94 mg/dL (65-110); Potassium 4.5 mmol/L (3.4-5.0); Sodium 139 mmol/L (137-145)
== END 2025-01-24 15:09 | disposition home or self-care (01) ==
PROVIDERS: PCP Family Medicine; Visit Provider Neurological Surgery
DX: I10 Essential (primary) hypertension (principal); R94.31 Abnormal electrocardiogram [ECG] [EKG]
CPT/HCPCS: 36415; 80048; 85027; 93005